=== PATIENT | female | born 1965 | race Caucasian/White ===

== ENCOUNTER 2017-02-06 22:45 | Emergency (ER) | payer BC ==
[~2017-02-06] VITALS: Ht 149.9 cm; Wt 62.7 kg
[~2017-02-06 22:45] MED LIST: DICY20TA35 PO; HYOS0.1255 PO; LORA-741 PO; QUET1TAB30 PO; TAPE50TA PO; VTMD PO; ZOLE5INJ IV; [UNRECOGNIZED DRUG - CODE] PO
[2017-02-06 22:46] VITALS: TEMP 36.7; Ht 149.9 cm; Wt 62.7 kg
[2017-02-06] MEDS ORDERED: FENTANYL CITRATE INJ 50 MCG/1 ML 2 ML VIAL IV STA (23:32)
[2017-02-06] MEDS ORDERED: ONDANSETRON INJ 2 MG/ML 2 ML VIAL IV STA (23:32)
[2017-02-06] MEDS ORDERED: HYDROmorphone INJ 0.5 MG/0.5 ML SYR IV STA (23:35)
[2017-02-07 00:02] VITALS: O2SAT 93
[2017-02-07 00:16] LABS: BASO % 0.2 %; BASO ABS # 0.02 K/uL (0-0.2); COMPLETE YES; HEMATOCRIT 40.6 % (37-47); IG% 0.3 %; LYMPH % 33.5 %; LYMPH ABS # 3.42 K/uL (1.2-3.4); MEAN CORPUSCULAR HEMOGLOBIN 27.5 pg (25-34); MEAN PLATELET VOLUME 8.9 fL (7.4-10.4); MONO % 6.9 %; NEUT % 58.1 %; PLATELET COUNT 308 K/uL (130-400); RED BLOOD COUNT 5.01 M/uL (4.2-5.4)
[2017-02-07 00:29] LABS: ALT/SGPT 29 U/L (12-78); BLOOD UREA NITROGEN 13 mg/dl (7-18); BUN/CREATININE RATIO 16.5 (10-20); CALCIUM 9.3 mg/dl (8.5-10.1); CARBON DIOXIDE 24 mmol/L (21-32); CHLORIDE 106 mmol/L (98-107); CREATININE 0.78 mg/dl (0.60-1.20); GLUCOSE 114 mg/dl (70-99); SODIUM 140 mmol/L (136-145)
[2017-02-07 00:34] LABS: ALKALINE PHOSPHATASE 106 U/L (45-117); AST/SGOT 15 U/L (15-37)
[2017-02-07] MEDS ORDERED: HYDROmorphone INJ 1 MG/ML SYR IV STA (00:58)
[2017-02-07] MEDS ORDERED: CEFTRIAXONE SOD INJ 1 GM ADDVIAL IV STA (02:05)
[2017-02-07] MEDS ORDERED: DOXY100C2 PO (02:08)
[2017-02-07] MEDS ORDERED: ALBUTEROL HFA 8 GM INHALER INH STA (02:08)
[2017-02-07] MEDS ORDERED: OXYCODONE IR HOME PACK PO ONE (02:15)
[2017-02-07] MEDS ORDERED: DOXYCYCLINE HYCLATE 100 MG CAP PO ONE (02:15)
[2017-02-07 02:21] VITALS: BP 112/76; PULSE 99; O2SAT 93
--- NOTE | 2017-02-07 04:34 | EMERGENCY ROOM VISIT NOTE ---
History First contact with patient: 23:19 Chief Complaint: RIB PAIN Stated Complaint: PAIN UNDER LF BREAST History of Present Illness The patient is a 51 year old female who presents to the Emergency Room with complaints of left-sided chest pain for the past week after twisting the wrong way who saw her family care doctor and had an x-ray was negative for fracture. Patient also has been coughing. She does smoke. Patient denies dyspnea, fever , chills, abdominal pain, numbness, tingling, nausea, vomiting, diarrhea, diaphoresis, headache, neck stiffness. She is tolerating by mouth fluids and food. She describes pain as aching, ranging in severity 6 out of 10 worse with movement and breathing and better with rest. Review of Systems See HPI for pertinent positives & negatives. A total of 10 systems reviewed and were otherwise negative. Past Medical/Surgical History Medical Problems: (1) Irritable bowel syndrome (2) Osteoporosis (3) Vitamin D insufficiency Family History Cancer Gallbladder disease Social History Smoking Status: Current Every Day Smoker Alcohol Use: none Drug Use: none Marital Status: Housing Status: lives with family Occupation Status: employed Current/Historical Medications Scheduled Dicyclomine Hcl (Bentyl), 20 MG PO QID PRN Doxycycline Hyclate (Vibramycin), 100 MG PO BID Ergocalciferol (Vitamin D), 50,000 UNITS PO WK Hyoscyamine Sulfate (Levsin), 0.125 MG PO QID PRN Lorazepam (Ativan), 0.5 MG PO BID Quetiapine Fumarate (Seroquel), 50 MG PO HS Tapentadol Hcl (Nucynta Er), 200 MG PO Q12 Tapentadol Hcl (Nucynta), 50-100 MG PO TID Zoledronic Acid (Reclast), 5 MG IV YEARLY Allergies Coded Allergies: Egg (Verified Allergy, Unknown, HIVES, FACIAL SWELLING, 02/06/17) Codeine (Verified Adverse Reaction, Unknown, ABDOMINAL PAIN-IBS, 02/06/17) Morphine (Verified Adverse Reaction, Unknown, ABDOMINAL PAIN-IBS, 02/06/17) Opioid Analgesics (Verified Adverse Reaction, Unknown, GI SYMPTOMS, ) Physical Exam Vital Signs Date Time Temp Pulse Resp B/P Pulse Ox O2 Delivery O2 Flow Rate FiO2 02/07/17 02:21 99 18 112/76 93 Room Air 02/07/17 01:12 97 18 123/73 92 Room Air 02/07/17 00:49 100 02/07/17 00:32 96 18 115/72 92 Room Air 02/07/17 00:12 93 18 124/75 93 Room Air 02/07/17 00:02 93 Room Air 02/06/17 23:45 93 Room Air 02/06/17 22:46 36.7 103 18 142/83 95 Room Air Pain Rating (0-10): 7.0 Physical Exam VITALS: Vitals are noted on the nurse's note and reviewed by myself. Vital signs stable. GENERAL: Pleasant female, in no acute distress, nondiaphoretic, well-developed well-nourished. SKIN: The skin was without rashes, erythema, edema, or bruising. There is no tenting of the skin. Capillary reflex less than 2 seconds. HEAD: Normocephalic atraumatic. EARS: External auditory canals clear, tympanic membranes pearly pham without erythema or effusion bilaterally. EYES: Pupils equal round and reactive to light and accommodation. Conjunctivae without injection, sclerae without icterus. Extraocular movements intact. NOSE: Patent, turbinates without inflammation or discharge. MOUTH: Mucous membranes moist. Pharynx without erythema or exudate. Uvula midline. Airway patent. Tongue does not deviate. NECK: Supple without nuchal rigidity. No lymphadenopathy. No thyromegaly. Cervical spine is nontender. No JVD. HEART: Regular rate and rhythm without murmurs gallops or rubs. Left-sided chest minimally tender to palpation LUNGS: Clear to auscultation bilaterally without wheezes, rales or rhonchi. No dullness to percussion. No retractions or accessory muscle use. ABDOMEN: Positive bowel sounds x 4. Normal tympanic percussion. Soft, nontender, without masses or organomegaly. Vazquez sign negative. No guarding or rebound tenderness. MUSCULOSKELETAL: No muscle atrophy, erythema, or edema noted. NEURO: Patient was alert and oriented to person place and time. Normal sensation to light and sharp touch. No focal neurological deficits. Medical Decision & Procedures Laboratory Results 02/07/17 00:01 Red Blood Count 5.01, Mean Corpuscular Volume 81.0, Mean Corpuscular Hemoglobin 27.5, Mean Corpuscular Hemoglobin Concent 34.0, Mean Platelet Volume 8.9, Neutrophils (%) (Auto) 58.1, Lymphocytes (%) (Auto) 33.5, Monocytes (%) (Auto) 6.9, Eosinophils (%) (Auto) 1.0, Basophils (%) (Auto) 0.2, Neutrophils # (Auto) 5.93, Lymphocytes # (Auto) 3.42, Monocytes # (Auto) 0.70, Eosinophils # (Auto) 0.10, Basophils # (Auto) 0.02 02/07/17 00:01 Test 02/07/17 00:01 02/07/17 02:28 White Blood Count 10.20 K/uL (4.8-10.8) Red Blood Count 5.01 M/uL (4.2-5.4) Hemoglobin 13.8 g/dL (12.0-16.0) Hematocrit 40.6 % (37-47) Mean Corpuscular Volume 81.0 fL (80-100) Mean Corpuscular Hemoglobin 27.5 pg (25-34) Mean Corpuscular Hemoglobin Concent 34.0 g/dl (32-36) Platelet Count 308 K/uL (130-400) Mean Platelet Volume 8.9 fL (7.4-10.4) Neutrophils (%) (Auto) 58.1 % Lymphocytes (%) (Auto) 33.5 % Monocytes (%) (Auto) 6.9 % Eosinophils (%) (Auto) 1.0 % Basophils (%) (Auto) 0.2 % Neutrophils # (Auto) 5.93 K/uL (1.4-6.5) Lymphocytes # (Auto) 3.42 K/uL (1.2-3.4) Monocytes # (Auto) 0.70 K/uL (0.11-0.59) Eosinophils # (Auto) 0.10 K/uL (0-0.5) Basophils # (Auto) 0.02 K/uL (0-0.2) RDW Standard Deviation 42.5 fL (36.4-46.3) RDW Coefficient of Variation 14.3 % (11.5-14.5) Immature Granulocyte % (Auto) 0.3 % Immature Granulocyte # (Auto) 0.03 K/uL (0.00-0.02) Anion Gap 10.0 mmol/L (3-11) Est Creatinine Clear Calc Drug Dose 67.2 ml/min Estimated GFR () 100.6 Estimated GFR (Non- 86.8 BUN/Creatinine Ratio 16.5 (10-20) Calcium Level 9.3 mg/dl (8.5-10.1) Total Bilirubin 0.2 mg/dl (0.2-1) Direct Bilirubin < 0.1 mg/dl (0-0.2) Aspartate Amino Transf (AST/SGOT) 15 U/L (15-37) Alanine Aminotransferase (ALT/SGPT) 29 U/L (12-78) Alkaline Phosphatase 106 U/L (45-117) Troponin I < 0.015 ng/ml (0-0.045) Total Protein 7.6 gm/dl (6.4-8.2) Albumin 3.7 gm/dl (3.4-5.0) Lipase 99 U/L (73-393) Bedside Troponin I 0.000 ng/ml (0-0.045) Medications Administered Medications (Trade) Dose Ordered Sig/Mariela Route Start Time Stop Time Status Last Admin Dose Admin Ondansetron HCl (Zofran Inj) 4 mg NOW STAT IV 02/06/17 23:32 02/06/17 23:34 DC 02/07/17 00:06 4 MG Hydromorphone HCl (Dilaudid Inj) 0.5 mg NOW STAT IV 02/06/17 23:35 02/06/17 23:37 DC 02/07/17 00:08 0.5 MG Hydromorphone HCl (Dilaudid Inj) 1 mg NOW STAT IV 02/07/17 00:58 02/07/17 00:59 DC 02/07/17 01:11 1 MG Ceftriaxone Sodium (Rocephin Inj) 1 gm NOW STAT IV 02/07/17 02:05 02/07/17 02:06 DC 02/07/17 02:16 1 GM Doxycycline Hyclate (Vibramycin Cap) 100 mg ONE ONCE PO 02/07/17 02:15 02/07/17 02:16 DC 02/07/17 02:15 100 MG Oxycodone HCl (Roxicodone Immediate Rel 5MG Home Pack) 1 homepack UD ONCE PO 02/07/17 02:15 02/07/17 02:16 DC 02/07/17 02:14 1 HOMEPACK Albuterol (Ventolin Hfa Inhaler) 2 puffs ONE STAT INH 02/07/17 02:08 02/07/17 02:09 DC 02/07/17 02:19 2 PUFFS ED Course Prior records/ancillary studies reviewed. Triage Nursing notes reviewed. Additional history obtained from family The patient's history was concerning for chest pain. Differential diagnosis: Etiologies such as cardiac ischemia, aortic dissection, pulmonary embolism, pneumonia, pneumothorax, musculoskeletal, infections, pericarditis, myocarditis , esophageal rupture, gastrointestinal, as well as others were entertained. Physical examination: As above. ER treatment provided: Dilaudid, Rocephin, doxycycline On reassessment the patient felt better. Diagnostic interpretation by me: The electrocardiogram was negative for pathologic change. No sinus, normal intervals, no acute ST-T wave changes. Impression normal sinus rhythm interpreted by myself The labs revealed no worrisome leukocytosis or electrolyte abnormality. Negative troponin Imaging studies: Chest x-ray concerning for possible bilateral pneumonia per my interpretation CT CHEST Without Contrast: Bibasilar, lingula, and right middle lobe patchy airspace disease/atelectasis, greater on the left. Small left pleural effusion. No evidence of acute fracture or pneumothorax. Mild height loss of T8 and T10 vertebral bodies at their inferior endplates, likely chronic. 5 mm nodule left upper lobe (image 117, series 4). Follow-up as per Fleischner Society recommendations. Post cholecystectomy. Mild atherosclerotic calcifications. Radiologist: Raphael Tanner MD Exam and history seem consistent with pneumonia. Patient was not hypoxic. She was afebrile. No leukocytosis. She is to not tachypneic. She is advised to take anti-medics as directed and to do incentive spirometry. She is advised follow-up family care in a few days or here in the ER sooner for chest pain, difficulty breathing, fevers, worsening signs or symptoms or as needed. She did not like criteria for admission for pneumonia. She was strongly encouraged to quit smoking and to follow-up for lung nodule seen on CT imaging. By the evaluation outlined above emergent etiologies such as cardiac ischemia, aortic dissection, pulmonary embolism, pneumothorax, infections, pericarditis , myocarditis, gastrointestinal, as well as others were deemed relatively unlikely. The pt informed about the findings as listed above. All questions were answered and pleased with the treatment. Return instructions were outlined and the patient was discharged in stable condition. Outpatient prescription management: Doxycycline Referral: The patient was referred back to primary care physician for follow-up in 2 to 3 days for a recheck of the current condition. Case reviewed with my attending Medical Decision As above Impression Primary Impression: Pneumonia Departure Information Dispostion Home / Self-Care Condition GOOD Prescriptions Doxycycline Hyclate (VIBRAMYCIN) 100 Mg Cap 100 MG PO BID for 7 Days, #14 CAP Prov: Sara Bhat .TAMRA 02/07/17 Forms WORK / SCHOOL INSTRUCTIONS, HOME CARE DOCUMENTATION FORM, IMPORTANT VISIT INFORMATION Patient Instructions Pneumonia, My [facility], ED Nodule Solitary Pulmonary Additional Instructions DO NOT drive, drink alcohol, operate machinery, or perform dangerous activities today. You were given medications in the ER that can affect your ability to safely function or operate a vehicle. Oxycodone (OxyIR) 5mg: Take 1-2 pills every four hours for breakthrough pain. Avoid alcohol, operating machinery or dangerous equipment, working on ladders or roofs, DRIVING, or situations where being under the influence may be dangerous. It is recommended to use an iwky-eyn-hlvjuia stool softener such as Colace, 100mg twice daily while taking this medication to avoid constipation. Doxycycline 100mg: Take one pill twice daily for seven days for your infection. Take with food, but avoid dairy. Avoid prolonged sun exposure since this medication makes you temporarily more susceptible to sunburns. All antibiotics can cause diarrhea. If this occurs and you feel worse or it does not resolve in 1-2 days follow up with your doctor or return to the Emergency Department as this could be signs of serious underlying problems. Any medication can cause an allergic reaction, stop the pills immediately and return to the ER for rash, hives, breathing difficulties, or swelling. Albuterol Inhaler: Take 2 puffs four times daily for seven days, then as needed. Acetaminophen(Tylenol) may be used for fever or pain. Use 1000mg every six hours as needed. Avoid using more than 3000mg in a 24 hour period. AND/OR Ibuprofen(Motrin, Advil) may be used for fever or pain. Use 600mg every six hours as needed. Take with food. Avoid using more than 2400mg in a 24 hour period. Do not use 2400mg per day for more than three consecutive days without physician direction. Prolonged inappropriate use can lead to stomach upset or ulcers. Incentive spirometry 10 times an hour for the next 2 weeks while you're awake. Controlling your fever with Tylenol and Ibuprofen as above will make you feel better. Rest and drink plenty of fluids. Avoid strenuous activity until your symptoms resolve and your breathing returns to normal. Continue current medications. Return to the ER for chest pain, difficulty breathing, persistent fevers, vomiting, worsening of your condition, or as needed. Follow-up with family care in 2-3 days and for further workup for lung nodule seen on CT imaging. I strongly recommend that you quit smoking. Problem Qualifiers Primary Impression: Pneumonia Pneumonia type: due to unspecified organism Laterality: bilateral Lung location: unspecified part of lung Qualified Codes: J18.9 - Pneumonia, unspecified organism
--- NOTE | 2017-02-07 06:12 | DIAGNOSTIC IMAGING REPORT ---
CHEST ONE VIEW PORTABLE CLINICAL HISTORY: CHEST PAIN dyspnea COMPARISON STUDY: 05/28/2016 FINDINGS: Small bibasilar parenchymal infiltrates. Mid and upper lungs are considered clear. Diaphragms smooth. IMPRESSION: Small bibasilar parenchymal infiltrates Electronically signed by: Jesus Watkins M.D. 02/07/2017 6:10 AM Dictated Date/Time: 02/07/2017 6:10 AM
--- NOTE | 2017-02-07 06:19 | DIAGNOSTIC IMAGING REPORT ---
CHEST CT WITHOUT CONTRAST CT DOSE: 250.42 mGy.cm HISTORY: Trauma left sided cp, ? Fx TECHNIQUE: Multiaxial CT images of the chest were performed without contrast. COMPARISON: None. FINDINGS: Bilateral basilar parenchymal infiltrates. No true consolidative change. Trace left pleural effusion. Upper lungs are grossly clear. No evidence pneumothorax. 5 mm nodular density left upper lobe transaxial image 24. No acute bony abnormality. IMPRESSION: Bibasilar parenchymal infiltrates. No evidence pneumothorax. 5 mm nodular density left upper lobe. Please refer to below summary of Fleischner criteria recommendations for follow-up of incidental CT nodules (Jesus Iraheta, Guidelines for management of small pulmonary nodules detected on CT scans: A statement from the Fleischner Society, Radiology 237: [phone].) Low Risk Patient: Minimal or no smoking or other known risk factors for malignancy <=4 mm: No follow-up needed. >4-6 mm: Initial follow-up CT at 12 months; if unchanged, no further follow-up. >6-8 mm: Initial follow-up CT at 6-12 months then at 18-24 months if no change. >8 mm: Follow-up CT at \R\3, 9, 24 months, or PET and/or biopsy. High Risk Patient: History of smoking or other known risk factors <=4 mm: Follow-up at 12 months; if unchanged, no further follow-up. >4-6 mm: Initial follow-up CT at 6-12 months then at 18-24 months if no change. >6-8 mm: Initial follow-up CT at 3-6 months then at 9-12 and 24 months if no change. >8 mm: Same as low risk patient. Note: Nodule size measured as average of length and width. Ground glass or partly solid nodules may require longer follow-up to exclude indolent adenocarcinoma. Electronically signed by: Jesus Watkins M.D. 02/07/2017 6:18 AM Dictated Date/Time: 02/07/2017 6:17 AM
== END 2017-02-07 03:08 | disposition home or self-care (01) ==
LOC: C.EDB 22:46 → C.EDC 02-07 03:08
DX: J18.9 Pneumonia, unspecified organism (principal); R91.1 Solitary pulmonary nodule; F17.200 Nicotine dependence, unspecified, uncomplicated; K58.9 Irritable bowel syndrome, unspecified; M81.0 Age-related osteoporosis without current pathological fracture; E55.9 Vitamin D deficiency, unspecified

== ENCOUNTER 2023-07-28 03:43 | Inpatient (IN) ==
[2023-07-28] MEDS ORDERED: ASPIRIN CHEW 324 MG ONE (03:51)
[2023-07-28] MEDS ORDERED: ONDANSETRON INJ 2 MG/ML 2 ML VIAL IV STA ×2 (03:55→04:00)
[2023-07-28] MEDS ORDERED: NITROGLYCERIN 2% OINTMENT 30GM TUBE EXT STA (03:55)
[2023-07-28] MEDS ORDERED: NITROGLYCERIN SL 0.4 MG/TAB TAB ONE (03:58)
[2023-07-28] MEDS ORDERED: fentaNYL citrate PF 100 MCG/2 ML VIAL IV STA (04:00)
[2023-07-28 04:21] LABS: iSTAT Creatinine 0.8 mg/dl (0.6-1.3); iSTAT Ionized Calcium 1.16 mmol/l (1.12-1.32); iSTAT Potassium 3.7 mmol/L (3.3-5.0)
[2023-07-28] MEDS ORDERED: IOVERSOL 350 MG 125mL Prefilled Syringe IV ONE (04:27)
[2023-07-28 04:47] LABS: Basophils # (auto) 0.04 K/uL (0.00-0.20); Basophils % (auto) 0.4 %; Eosinophils # (auto) 0.16 K/uL (0.00-0.50); Eosinophils % (auto) 1.5 %; Hematocrit (blood only) 42.5 % (37.0-47.0); Hemoglobin 14.5 g/dl (12.0-16.0); Immature Granulocytes # (auto) 0.04 K/uL (0.01-0.20); Immature Granulocytes % (auto) 0.4 %; Lymphocytes % (auto) 45.5 %; Mean Corpuscular Hemoglobin 28.5 pg (25.0-34.0); Mean Corpuscular Hgb Conc 34.1 g/dL (32.0-36.0); Mean Corpuscular Volume 83.7 fL (80.0-100.0); Mean Platelet Volume 9.9 fL (9.4-12.4); Monocytes # (auto) 0.61 K/uL (0.11-0.59); Monocytes % (auto) 5.7 %; Neutrophils # (auto) 5.02 K/uL (1.40-6.50); Neutrophils % (auto) 46.5 %; Platelet Count 314 K/uL (130-400); RDW Coefficient of Variation 15.7 % (11.5-14.5); Red Blood Count 5.08 M/uL (4.20-5.40); White Blood Count 10.77 K/ul (4.8-10.8)
[2023-07-28 05:00] LABS: Albumin Globulin Ratio 1.4 (0.9-2); Albumin Level 4.1 gm/dl (3.4-5.0); Bilirubin,Total 0.3 mg/dl (0.2-1.0); Calcium 9.3 mg/dl (8.6-10.3); Creatinine Clr Calc Pharmacy 67.5 ml/min; Est GFR (African American) 88.2 ml/min; Est GFR (Non-African American) 76.1 ml/min; Globulin 2.9 gm/dl (2.5-4.0); Potassium 3.8 mmol/L (3.5-5.1)
[2023-07-28 05:07] LABS: Troponin I High Sensitivity 14.2 pg/ml (0-14)
[2023-07-28 05:08] LABS: Partial Thromboplastin Ratio 0.9; Partial Thromboplastin Time 24.1 Seconds (21.0-31.0); Prothrombin Time 10.5 Seconds (9.0-12.0)
[2023-07-28] MEDS ORDERED: niCARdipine HCL INJ 2.5 MG/ML 10 ML AMP ONE (05:36)
[2023-07-28] MEDS ORDERED: MIDAZOLAM HCL 1 MG/ML 2ML VIAL ONE (05:36)
[2023-07-28] MEDS ORDERED: HEPARIN (PORCINE) 1000 UNIT/ML 10 ML (CATH LAB USE ONLY) ONE (05:36)
[2023-07-28] MEDS ORDERED: fentaNYL citrate PF 100 MCG/2 ML VIAL ONE (05:36)
[2023-07-28] MEDS ORDERED: NITROGLYCERIN/D5W 100MCG/ML 20ML SYR ONE (05:38)
--- NOTE | 2023-07-28 05:47 | CT Scan Report ---
Exam(s): CTA CHEST W/WO Contrast IV Amt: 118 ml opti 350 EXAM: CT Angiography Chest Without and With Intravenous Contrast CLINICAL HISTORY: Reason for exam: chest abd pain, collapse, 3rd degree HB. TECHNIQUE: Axial computed tomographic angiography images of the chest without and with intravenous contrast. CTDI is 22.86 mGy and DLP is 681.06 mGy-cm. Automated exposure control was utilized for the study. A dose lowering technique was utilized adhering to the principles of ALARA. MIP reconstructed images were created and reviewed. CONTRAST: Patient received 118 ml opti 350 of IV contrast COMPARISON: No relevant prior studies available. FINDINGS: Pulmonary arteries: Unremarkable. No acute pulmonary embolism. Aorta: No acute findings. No thoracic aortic aneurysm. Lungs: Patchy multifocal groundglass and consolidative densities are seen scattered in the lungs, more so involving the lower lobes. 7.9 mm nodule seen in the lingula on image 24, series 2. Pleural space: Unremarkable. No significant effusion. No pneumothorax. Heart: There is mild left ventriculomegaly. No significant pericardial effusion. No evidence of RV dysfunction. Bones/joints: No acute fracture. No dislocation. Soft tissues: Unremarkable. Lymph nodes: Unremarkable. No enlarged lymph nodes. Gallbladder and bile ducts: Cholecystectomy. Adrenals: Nodularity seen in the left adrenal gland, measuring up to 2. 1 cm in diameter. IMPRESSION: 1. Bilateral multifocal groundglass and consolidative densities are suggestive of pneumonia 2. Left adrenal nodularity Electronically signed by: Geoff George MD 07/28/23 05:46 AM
[2023-07-28 06:16] LABS: Influenza A virus by PCR Negative (Neg); Influenza B virus by PCR Negative (Neg); RSV by PCR Negative (Neg); SARS CoV2 RNA(COVID-19) Ceph NEGATIVE (Negative)
[2023-07-28] MEDS ORDERED: SODIUM CHLORIDE 0.9% 1,000 ML IV SCH (06:30)
--- NOTE | 2023-07-28 06:38 | Pre Anesthesia Assessment ---
Date of Service July 28, 2023 Pre Sedation Assessment Vital Signs Pulse Resp BP Pulse Ox O2 Del Method O2 Flow Rate 07/28/23 05:35 103 H 26 H 95 07/28/23 05:35 153/85 H 07/28/23 05:30 29 H 100 07/28/23 05:30 139/92 07/28/23 05:25 102 H 42 H 07/28/23 05:25 139/95 07/28/23 05:20 150/97 H 07/28/23 05:20 94 H 25 H 100 07/28/23 05:15 98 H 27 H 100 07/28/23 05:15 149/88 H 07/28/23 05:10 95 H 31 H 98 07/28/23 05:10 128/93 07/28/23 05:05 95 H 43 H 100 07/28/23 05:05 140/89 07/28/23 05:01 88 34 H 100 07/28/23 05:01 149/69 H 07/28/23 05:00 71 21 07/28/23 04:55 138/67 07/28/23 04:55 57 L 26 H 99 07/28/23 04:50 52 L 29 H 07/28/23 04:50 130/70 07/28/23 04:45 52 L 21 97 07/28/23 04:45 135/68 07/28/23 04:40 73 28 H 97 07/28/23 04:40 121/61 07/28/23 05:52 96 H 20 153/85 H 100 Non-rebreather 10 07/28/23 05:18 97 H 07/28/23 04:28 44 L 07/28/23 04:35 50 L 22 111/63 96 07/28/23 04:28 49 L 19 118/61 94 07/28/23 04:24 79 20 91/49 L 94 07/28/23 04:22 36 L 19 92 07/28/23 04:34 Non-rebreather 15 07/28/23 04:01 72 28 H 146/92 H 100 Non-rebreather 15 Cardiovascular RRR, no murmur, no edema Respiratory normal respiratory effort, lungs clear to auscultation Pre-Sedation Airway Assessment Smoking Status: Current every day smoker Mallampati 3 ASA 4 Notes The planned sedation has been discussed with the patient. Informed Consent was obtained. I have identified the patient, determined the appropriateness of sedation and have assessed the patient immediately prior to the procedure. All medicine(s) and interventions are by my order.
[2023-07-28] MEDS ORDERED: OPTIRAY 320 100ml IV ONE (06:39)
--- NOTE | 2023-07-28 06:40 | Post Anesthesia Assessment ---
Date of Service July 28, 2023 Post Sedation Assessment Vital Signs Pulse Resp BP Pulse Ox O2 Del Method O2 Flow Rate 07/28/23 05:35 103 H 26 H 95 07/28/23 05:35 153/85 H 07/28/23 05:30 29 H 100 07/28/23 05:30 139/92 07/28/23 05:25 102 H 42 H 07/28/23 05:25 139/95 07/28/23 05:20 150/97 H 07/28/23 05:20 94 H 25 H 100 07/28/23 05:15 98 H 27 H 100 07/28/23 05:15 149/88 H 07/28/23 05:10 95 H 31 H 98 07/28/23 05:10 128/93 07/28/23 05:05 95 H 43 H 100 07/28/23 05:05 140/89 07/28/23 05:01 88 34 H 100 07/28/23 05:01 149/69 H 07/28/23 05:00 71 21 07/28/23 04:55 138/67 07/28/23 04:55 57 L 26 H 99 07/28/23 04:50 52 L 29 H 07/28/23 04:50 130/70 07/28/23 04:45 52 L 21 97 07/28/23 04:45 135/68 07/28/23 04:40 73 28 H 97 07/28/23 04:40 121/61 07/28/23 05:52 96 H 20 153/85 H 100 Non-rebreather 10 07/28/23 05:18 97 H 07/28/23 04:28 44 L 07/28/23 04:35 50 L 22 111/63 96 07/28/23 04:28 49 L 19 118/61 94 07/28/23 04:24 79 20 91/49 L 94 07/28/23 04:22 36 L 19 92 07/28/23 04:34 Non-rebreather 15 07/28/23 04:01 72 28 H 146/92 H 100 Non-rebreather 15 Recovery Score Activity: Moves 4 extremities Respiration: Deep Breath/Cough Circulation: +/-20% PreAnes Value Consciousness: Fully Awake Oxygen Saturation: > 92% On Room Air Discharge Sedation Level of Care: Fast Track Phase II Post Sedation Plan On clinical assessment, the patient appears to have tolerated the sedation without complications. Patient is recovering as anticipated. Patient will continue to be monitored by nursing and may be discharged when sedation discharge criteria are met per below protocol. Upon Completions of procedure up to 15 minutes continue every 5 minute vital signs and the P.A.R. score; then discharge to a Phase I or Fast Track to Phase II per the following guidelines: * Discharge Patient to appropriate Phase II area if PAR is 8 or greater or return to pre- procedure baseline. The post - procedure orders will be as directed. * If PAR score is less than 8 or not return to pre-procedure baseline then patient will follow Phase I monitoring till PAR is reached for Phase II. The Phase I may be done in procedure room or may call to secure a Phase I area. * If naloxone or flumazenil are used for reversal, hold in Phase I for continued monitoring from when last reversal dose was given for a minimum of 60 minutes or longer pending the nurse and/or physician discretion of patient condition before discharge to Phase II. Please call the Sedation Physician to re-evaluate and complete post-note for discharge to Phase II area. Do NOT discharge from procedure sedation or Phase 1 until post- sedation evaluation note is complete by procedure /sedation MD Sedation Discharge Instructions to be given to the patient at discharge to home. [facility] Procedure Codes (Charges) Indication for Procedure Indication for procedure: ST elevation SD Sedation/Anesthesia Procedure 1: Sedation/Anesthesia: 54601 Mod Sedation by the same physician;Init15 Min Child Age 5 & Up (Start time 0554) Total Sedation Time (minutes): 25 Procedure 2: Sedation/Anesthesia: 15932 Mod Sedation by the same physician; Ea [id number] Minutes (End time 0619) Total Sedation Time (minutes): 25
--- NOTE | 2023-07-28 06:52 | Cardiac Catheterization ---
ACC Data: Preventive Medicine Officer Cardiac Status Clinical evaluation leading to the procedure CAD Presenation: STEMI Anginal Classification: CCS IV Heart Failure: No Cardiogenic Shock within 24 Hours: No Cardiac Arrest within 24 Hours: No Imaging Studies Past 6 Months: No Stress Studies Past 6 Months: No STEMI OR Non-STEMI Symptom Onset Date: 07/28/23 Symptom Onset Time: 03:00 Thrombolytics: No Coronary Anatomy Dominant: Right Left Main (% Stenosis): Normal LAD (% Stenosis): Proximal (Mild disease) D1 (% Stenosis): Normal D2 (% Stenosis): Normal Circumflex (% Stenosis): Normal OM1 (% Stenosis): Proximal (99%) OM2 (% Stenosis): Normal L PL1 (% Stenosis): Normal RCA (% Stenosis): Proximal (100%, acute) R PDA (% Stenosis): Normal R PL1 (% Stenosis): Normal Diagnostic Physicians Name: Seth Latham MD, PhD Closure Device Percutaneous Entry Location: Femoral Closure Device: Angio-Seal Recommendations: Medical Therapy and/or Counseling and PCI without planned CABG PCI Indication: PCI for STEMI - Unstable First Noted: First EKG Reason For Delay in PCI:: Complete heart block, (Sent for aortic dissection pro tocol) Lesion Segment Name: Proximal RCA Culprit Artery: Yes Stenosis Prior to Rx (%): 100% Chronic Total Occlusion: No Pre-Procedure ISAEL Flow: 0 Previously Treated Lesion: No Lesion Complexity: Non-High/Non-C Lesion Length (mm): 18 Thrombus Present: Yes Bifurcation Lesion: No Guidewire Across Lesion: Yes Cardiac Cath Procedure Full Procedure Date July 28, 2023 Pre-Procedure Diagnosis Pre-Procedure Diagnosis: STEMI AUC Score AUC Score: 09 Post-Procedure Diagnosis Post-Procedure Diagnosis: Severe CAD Procedure(s) Performed Procedure(s) Performed: Coronary Angiography, Drug Eluting Stent and Ultrasound Guided Vascular Access Deputy Director Seth Latham MD, PhD Estimated Blood Loss Estimated Blood Loss: 5 Medication(s) Medication(s): Fentanyl, Heparin, Lidocaine 1%, Nicardipine, Nitroglycerin and Versed Summary of Findings Brief description: Patient was brought to the cardiac catheterization suite where she was shaved and prepped in a sterile fashion. Sedated using IV Versed and fentanyl. Soft tissues of the right groin were anesthetized using 10 mL of 1% Xylocaine. Using the ultrasound for guidance, the right femoral artery was accessed and a 6 [place] femoral artery sheath was placed. All catheters were advanced and exchanged over a 0.035 J-tip wire. Right coronary angiography was performed in orthogonal views with a 6 [place] JR4 guide catheter. We proceeded immediately to PCI. Patient was provided 7000 units of IV heparin. A BMW reversal guidewire was advanced through the guide catheter and positioned distally in the RCA. The lesion was predilated using a 2.0 x 12 mm mini trek balloon at 8 jeffrey. PCI with a 2.25 x 22 mm [place] drug-eluting stent deployed at 14 atmospheres. Postdilatation of the mid and proximal portion of the stent with a 2.25 x 12 NC trek balloon at 18 jeffrey and 20 jeffrey respectively. Noncompliant balloon removed. Guidewire removed. Final angiographic evaluation performed in orthogonal views. The guide catheter was then removed. We completed diagnostic coronary angiography using a 5 [place] JL 3.5 diagnostic catheter. Coronary angiography performed in orthogonal views. Catheter was then removed. Femoral artery angiography was performed to evaluate for closure. The femoral artery sheath was exchanged for a 6 [place] Angio-Seal closure device. This was deployed in the recommended fashion. We obtained immediate hemostasis. Patient was returned to the recovery area. This ended the case. Coronary angiography findings: YFO-[id number]-hchlakn vessel bifurcating into LAD and circumflex. No disease. LAD-large caliber and transapical. Proximal mild disease. Gives a medium caliber first diagonal which has no disease. The mid segment has no disease and gives a second diagonal. Distally there is no angiographically evident disease. QAs-kbtsw-hjbtbuz and nondominant. Proximal segment in the AV groove has mild luminal irregularities. Vessel gives a small caliber OM1 which appears 99% occluded. The mid AV groove circumflex has no significant disease and then provides a large caliber OM 2. This vessel has mild luminal irregularities. Distally the AV groove vessel then becomes a large caliber branching posterior lateral which has no more than mild luminal irregularities. RCA-medium caliber and dominant. Proximally 100% occluded which appears acute. ISAEL 0 flow PCI of RCA- 0% residual stenosis post PCI No evidence of dissection or perforation post PCI ISAEL-3 flow post PCI Excellent myocardial blush downstream post PCI. The PDA and branching posterolaterals are both visualized. Summary: 1. Acute inferior ST elevation OK secondary to proximal RCA occlusion. 2. Successful PCI to the RCA with implantation of a drug-eluting stent 3. No significant coronary disease elsewhere 4. Dual antiplatelet therapy with aspirin 81 mg daily and Brilinta 90 mg p.o. twice daily 5. Guideline directed medical therapy for secondary prevention of coronary disease to include; high intensity statin therapy, beta-rose, plus or minus TAMI inhibitor/ARB. 6. Dr. Oliver from [facility] cardiology will be taking over the patient's care as she is a [facility] patient. Patient is admitted to the [facility] hospitalist service. Hemodynamics Rest Ao:: 164/71 mmHg Final Ao: 83/54 mmHg LV: Not performed Recommendations Recommendations: Medical Therapy and/or Counseling and PCI without planned CABG Radiation Exposure (mGy) 792 mGy, fluoroscopy time 5.1 minutes Contrast (mls) 90 Anesthesia 1 mg IV Versed, 50 mcg IV fentanyl. Start time 0554, end time 0619 Procedural Complication(s) None Disposition ICU I attest to the content of the Intraoperative Record and any orders documented therein. Any exceptions are noted below. [id number] Card Cath Procedure Codes Cardiac Catheterization Procedure 1: Cardiovascular Cath Procedures: 51519 Coronaries Therapeutic Services & Ancillary Procedure 1: Cardiovascular Tx and Anc Procedures: 99090 Ultrasonic Guidance Vascular Access Moderate Sedation Procedure 1: Sedation/Anesthesia: 43392 Mod Sedation by the same physician;Init15 Min Child Age 5 & Up (Initial 15-minute, start time 0554) Procedure 2: Sedation/Anesthesia: 29672 Mod Sedation by the same physician; Ea [id number] Minutes (Additional 10-minute, end time 0619) Stenting Procedure 1: Cardiovascular Stent Procedures: 90957 Perc transluminal revascularization of acute sub/total occl, aMI (RCA) PG Care Time/CCT Total # of Minutes Spent Total Time Spent with Patient: Total time spent is greater than 50% in coordination of care (as documented) at patient's floor/unit and/or counseling patient:
[2023-07-28] MEDS ORDERED: TICAGRELOR 90 MG TAB ONE (06:55)
--- NOTE | 2023-07-28 07:04 | XRay Report ---
XR chest 1V portable HISTORY: 57 years-old Female Chest pain, nonspecific COMPARISON: CTA chest of same day TECHNIQUE: AP view of the chest FINDINGS: Cardiac silhouette is enlarged. Atherosclerosis of the aorta. No pneumothorax or pleural effusion. Mi xed interstitial and alveolar opacities are most pronounced in the lower lung zones. Bones appear raoul ssly intact. IMPRESSION: Cardiomegaly with lower lung zone predominant mixed interstitial and alveolar opacities s uspicious for a nonspecific pneumonitis. ACT 112: Negative or not required by law. The above report was generated using voice recognition software. It may contain grammatical, syntax o r spelling errors. Electronically signed by: Jose Stahl M.D. 07/28/2023 7:03 AM
--- NOTE | 2023-07-28 07:11 | CT Scan Report ---
CT abdomen pelvis wo/w con CT DOSE: 2415.85 mGy.cm CLINICAL HISTORY: acute abdominal pain post cardiac cath TECHNIQUE: Multiaxial CT images of the abdomen and pelvis were performed both before and after the in travenous administration of 94 cc of Optiray 320. Sagittal and coronal reformations were performed at the workstation by the radiologist. A dose lowering technique was utilized adhering to the principl es of SONAL. COMPARISON STUDY: Abdomen and pelvis CT 06/15/2018. Chest CTA 07/28/2023. FINDINGS: Patchy and linear bilateral lower lobe densities are better appreciated on the same day cj st CT. This may represent atelectasis or pneumonia. No pneumoperitoneum. No pneumatosis. L2 vertebrop lasty is noted. Old mild superior endplate compression deformities at L4 and L5. Old mild inferior en dplate compression deformities at T8 and T10. Residual contrast within the urinary system from the re cent cardiac catheterization. Noncontrast imaging through the abdominal aorta demonstrates moderate c alcified plaque. No evidence for an intramural hematoma. The abdominal aorta is normal in course and caliber. The iliac and femoral vessels are also normal in course and caliber with no evidence for dis section, stenosis, or occlusion. No retroperitoneal hematoma. Trace hemorrhage anterior to the common femoral vessels best seen on image 297. No active arterial extravasation identified to suggest a pse udoaneurysm. This is consistent with the access point for the cardiac catheterization. There is an ov erlying pressure dressing identified. Cholecystectomy. The main portal vein is patent. The liver, spl een, and pancreas are unremarkable. Subcentimeter hypodense lesions within the left kidney are techni tiffanie too small to characterize but favor cysts. The right kidney enhances normally. No hydronephrosi s. Bilateral low-density adrenal gland nodules remain stable. These favor benign adenomas. No retrope ritoneal or pelvic lymphadenopathy. No pelvic free fluid. No bowel wall thickening or obstruction. Th e uterus and bilateral adnexa are unremarkable. No bowel wall thickening or obstruction. IMPRESSION: 1. Trace hemorrhage anterior to the common femoral vessels consistent with expected postcatheterizati on changes. No active arterial extravasation or pseudoaneurysm identified. No retroperitoneal hematom a. 2. No bowel wall thickening or obstruction. 3. Normal caliber abdominal aorta. No evidence for a dissection. 4. Patchy and linear bibasilar densities. This may represent atelectasis or a pneumonitis. 5. Stable low-density bilateral adrenal gland nodules. These favor benign adenomas. 6. Additional findings as described above. ACT 112: Negative or not required by law. Electronically signed by: Stephan Callejas M.D. 07/28/2023 7:10 AM
--- NOTE | 2023-07-28 07:13 | Emergency Department Note ---
Impression & Plan Acute ME, inferior wall, Mobitz type 1 second degree AV block ED Provider Note CHIEF COMPLAINT: Chest pain, syncopal event HISTORY OF PRESENT ILLNESS: This 57-year-old female patient with past medical history of osteoporosis, lumbar compression fracture, irritable bowel syndrome, tobacco smoking presents to the emergency department with complaints of chest and abdominal pain after a syncopal event. The patient apparently called her earlier this evening and stated she was not feeling well. He was in the basement and came upstairs with her. The patient then clutched her chest and stated she felt as though she was having a heart attack. Shortly thereafter she had a syncopal event. She states she woke up with the ambulance crew there. She complains of pain that does radiate to her back and arms. Patient has been taking her medications religiously. states she is trying to cut back on smoking. REVIEW OF SYSTEMS: A review of systems was performed with positives and pertinent negatives listed in the history of present illness. 10 systems were reviewed and are otherwise negative. ALLERGIES: see below MEDICATIONS: see below PMH: see below SOCIAL HISTORY: see below DDx: Acute coronary syndrome, aortic dissection, PE, pancreatitis, hiatal hernia, among others. PHYSICAL EXAM: Vital signs reviewed. General: Well-appearing 57-year-old female, in no significant distress. HEENT: No scleral icterus, PERRLA, neck supple. Atraumatic. Cardiovascular: Bradycardic but regular, no extra sounds Pulmonary: Clear to auscultation bilaterally, normal work of breathing. On supplemental oxygen Abdomen: Soft, nontender, nondistended, positive bowel sounds. Musculoskeletal: Atraumatic, no peripheral edema. Neurologic: Patient awake somnolent but arousable. Answers simple questions. Speech is clear. Skin: Warm, dry, no rash EMERGENCY DEPARTMENT COURSE/MDM: Patient was evaluated and appeared to be in some discomfort. 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 IV access was obtained and laboratory work was drawn. The patient was placed on the purchase analyst. She was given supplemental nasal cannula oxygen. Due to the patient's recent travel history and new AV block on EKG, CT imaging of the chest was performed and reveals no evidence of acute dissection or PE. EKG was concerning for possible ischemia however elevation was only noted in 1-lead initially. I did initially page cardiology due to the AV block, Dr. Oliver responded quickly however patient's third EKG is more convincing for ST elevation and then heart alert had just been called. Patient's initial troponin is noted to be within normal limits. She was taken to the catheterization lab for further management by Dr. Latham. Patient's was made aware of the findings and plan and agreed. MONITORING: An order for cardiac monitoring was placed and the patient is noted to be in a sinus rhythm first-degree AV block 79 beats per minute. RADIOLOGY: Chest x-ray to my interpretation reveals patchy focal opacities concerning for pneumonia versus failure. Otherwise defer to radiology's read below. Chest CT dissection protocol to my interpretation reveals no evidence of central PE or aortic dissection. EKG: To my interpretation reveals sinus rhythm with with first-degree AV block at [address] elevation in 1-lead inferiorly. QTc of 447. EKG #2 to my interpretation reveals a 2:1 AV block bradycardia at 47 bpm, minimal ST elevation in 1-lead inferiorly with T wave inversions anteriorly. EKG #3 to my interpretation reveals a sinus rhythm with first-degree AV block at 93 bpm. PVC noted. QTc is 457 ST elevation in the inferior lead with reciprocal changes anteriorly. ST elevation ME DISPOSITION: Admission I have personally spent greater than 60 minutes of critical care time in the direct management of this patient. This includes bedside care, interpretation of diagnostic studies, and testing, discussion with consultants, patient, and family members, and other required patient management activities. This 60 minutes is in excess of all separately billable procedures. 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 Service Specialist Required: No Beliefs That Will Affect Care: None Current Living Situation: Spouse Feels Safe at Home: Yes Assistive Devices: None Allergies Allergies Allergy/AdvReac Type Severity Reaction Status Date / Time egg Allergy Unknown HIVES, Verified 09/05/20 10:21 FACIAL SWELLING codeine AdvReac Unknown ABDOMINAL Verified 09/05/20 10:21 PAIN-IBS morphine AdvReac Unknown ABDOMINAL Verified 09/05/20 10:21 PAIN-IBS Opioids - Morphine Analogues AdvReac Unknown Nausea Verified 07/28/23 06:39 Home Meds Home Medications Medication Instructions Recorded Confirmed dicyclomine 20 mg tablet 20 mg PO QID PRN IBS 10/03/18 07/28/23 hyoscyamine sulfate 0.125 mg 0.125 mg sublingual QID PRN 10/03/18 07/28/23 sublingual tablet Abdominal Pain lorazepam 0.5 mg tablet 0.5 mg PO TID anxiety 09/05/20 07/28/23 suvorexant 20 mg tablet (Belsomra) 20 mg PO HS PRN Sleep 09/05/20 07/28/23 buspirone 15 mg tablet 22.5 mg PO QID 07/28/23 07/28/23 cholecalciferol (vitamin D3) 1,250 50,000 unit PO FR@0900 07/28/23 07/28/23 mcg (50,000 unit) capsule denosumab 60 mg/mL subcutaneous See Rx Instructions .Route .COMPLEX 07/28/23 07/28/23 syringe (Prolia) glipizide 5 mg tablet, extended 5 mg PO DAILY 07/28/23 07/28/23 release 24 hr omeprazole 40 mg capsule,delayed 40 mg PO DAILY 07/28/23 07/28/23 release progesterone micronized 200 mg 400 mg PO HS 07/28/23 07/28/23 capsule thyroid (pork) 60 mg tablet 60 mg PO DAILY 07/28/23 07/28/23 ([place] Thyroid) linaclotide 290 mcg capsule 290 mcg PO DAILY 07/29/23 07/29/23 (Linzess) quetiapine 300 mg tablet 300 mg PO HS 07/30/23 07/30/23 Results & Data (ED) Vital Signs Vital Signs - 24 hr 07/28/23 04:01 07/28/23 04:34 07/28/23 04:22 Pulse Rate 72 36 L Pulse Rate from SpO2 Sensor Respiratory Rate 28 H 19 Blood Pressure 146/92 H Blood Pressure Mean 110 Pulse Oximetry 100 92 Oxygen Delivery Method Non-rebreather Non-rebreather Oxygen Flow Rate 15 15 Sepsis Recent Fever Within 48 Hours No Sepsis New/Unexplained Change in Mental Status No Sepsis Action Taken by Nursing No Action Required Pulse Oximetry Post Tiitration 96 07/28/23 04:24 07/28/23 04:28 07/28/23 04:35 Pulse Rate 79 49 L 50 L Pulse Rate from SpO2 Sensor Respiratory Rate 20 19 22 Blood Pressure 91/49 L 118/61 111/63 Blood Pressure Mean 63 80 79 Pulse Oximetry 94 94 96 Oxygen Delivery Method Oxygen Flow Rate Sepsis Recent Fever Within 48 Hours Sepsis New/Unexplained Change in Mental Status Sepsis Action Taken by Nursing Pulse Oximetry Post Tiitration 07/28/23 04:28 07/28/23 05:18 07/28/23 05:52 Pulse Rate 44 L 97 H 96 H Pulse Rate from SpO2 Sensor Respiratory Rate 20 Blood Pressure 153/85 H Blood Pressure Mean Pulse Oximetry 100 Oxygen Delivery Method Non-rebreather Oxygen Flow Rate 10 Sepsis Recent Fever Within 48 Hours Sepsis New/Unexplained Change in Mental Status Sepsis Action Taken by Nursing Pulse Oximetry Post Tiitration 07/28/23 04:40 07/28/23 04:40 07/28/23 04:45 Pulse Rate 73 Pulse Rate from SpO2 Sensor 52 L Respiratory Rate 28 H Blood Pressure 121/61 135/68 Blood Pressure Mean 81 90 Pulse Oximetry 97 Oxygen Delivery Method Oxygen Flow Rate Sepsis Recent Fever Within 48 Hours Sepsis New/Unexplained Change in Mental Status Sepsis Action Taken by Nursing Pulse Oximetry Post Tiitration 07/28/23 04:45 07/28/23 04:50 07/28/23 04:50 Pulse Rate 52 L 52 L Pulse Rate from SpO2 Sensor 52 L Respiratory Rate 21 29 H Blood Pressure 130/70 Blood Pressure Mean 90 Pulse Oximetry 97 Oxygen Delivery Method Oxygen Flow Rate Sepsis Recent Fever Within 48 Hours Sepsis New/Unexplained Change in Mental Status Sepsis Action Taken by Nursing Pulse Oximetry Post Tiitration 07/28/23 04:55 07/28/23 04:55 07/28/23 05:00 Pulse Rate 57 L 71 Pulse Rate from SpO2 Sensor 48 L Respiratory Rate 26 H 21 Blood Pressure 138/67 Blood Pressure Mean 90 Pulse Oximetry 99 Oxygen Delivery Method Oxygen Flow Rate Sepsis Recent Fever Within 48 Hours Sepsis New/Unexplained Change in Mental Status Sepsis Action Taken by Nursing Pulse Oximetry Post Tiitration 07/28/23 05:01 07/28/23 05:01 07/28/23 05:05 Pulse Rate 88 Pulse Rate from SpO2 Sensor 86 Respiratory Rate 34 H Blood Pressure 149/69 H 140/89 Blood Pressure Mean 95 106 Pulse Oximetry 100 Oxygen Delivery Method Oxygen Flow Rate Sepsis Recent Fever Within 48 Hours Sepsis New/Unexplained Change in Mental Status Sepsis Action Taken by Nursing Pulse Oximetry Post Tiitration 07/28/23 05:05 07/28/23 05:10 07/28/23 05:10 Pulse Rate 95 H 95 H Pulse Rate from SpO2 Sensor 92 H 98 H Respiratory Rate 43 H 31 H Blood Pressure 128/93 Blood Pressure Mean 104 Pulse Oximetry 100 98 Oxygen Delivery Method Oxygen Flow Rate Sepsis Recent Fever Within 48 Hours Sepsis New/Unexplained Change in Mental Status Sepsis Action Taken by Nursing Pulse Oximetry Post Tiitration 07/28/23 05:15 07/28/23 05:15 07/28/23 05:20 Pulse Rate 98 H 94 H Pulse Rate from SpO2 Sensor 99 H 96 H Respiratory Rate 27 H 25 H Blood Pressure 149/88 H Blood Pressure Mean 108 Pulse Oximetry 100 100 Oxygen Delivery Method Oxygen Flow Rate Sepsis Recent Fever Within 48 Hours Sepsis New/Unexplained Change in Mental Status Sepsis Action Taken by Nursing Pulse Oximetry Post Tiitration 07/28/23 05:20 07/28/23 05:25 07/28/23 05:25 Pulse Rate 102 H Pulse Rate from SpO2 Sensor Respiratory Rate 42 H Blood Pressure 150/97 H 139/95 Blood Pressure Mean 114 109 Pulse Oximetry Oxygen Delivery Method Oxygen Flow Rate Sepsis Recent Fever Within 48 Hours Sepsis New/Unexplained Change in Mental Status Sepsis Action Taken by Nursing Pulse Oximetry Post Tiitration 07/28/23 05:30 07/28/23 05:30 07/28/23 05:35 Pulse Rate Pulse Rate from SpO2 Sensor 101 H Respiratory Rate 29 H Blood Pressure 139/92 153/85 H Blood Pressure Mean 107 107 Pulse Oximetry 100 Oxygen Delivery Method Oxygen Flow Rate Sepsis Recent Fever Within 48 Hours Sepsis New/Unexplained Change in Mental Status Sepsis Action Taken by Nursing Pulse Oximetry Post Tiitration 07/28/23 05:35 Pulse Rate 103 H Pulse Rate from SpO2 Sensor 102 H Respiratory Rate 26 H Blood Pressure Blood Pressure Mean Pulse Oximetry 95 Oxygen Delivery Method Oxygen Flow Rate Sepsis Recent Fever Within 48 Hours Sepsis New/Unexplained Change in Mental Status Sepsis Action Taken by Nursing Pulse Oximetry Post Tiitration Home Medications Current Medication List: was personally reviewed by me Laboratory Data Attestation: I reviewed the patient's lab results. 07/28/23 04:06 07/28/23 04:06 Lab Results 07/28/23 07/28/23 07/28/23 Range/Units 04:06 04:06 04:06 WBC 10.77 (4.8-10.8) K/ul RBC 5.08 (4.20-5.40) M/uL Hgb 14.5 (12.0-16.0) g/dl POC Hgb (12.0-16.0) g/dl Hct 42.5 (37.0-47.0) % POC Hct (37-47) % MCV 83.7 (80.0-100.0) fL MCH 28.5 (25.0-34.0) pg MCHC 34.1 (32.0-36.0) g/dL RDW Std Deviation 48.0 H (36.4-46.3) fL RDW Coeff of Sharla 15.7 H (11.5-14.5) % Plt Count 314 (130-400) K/uL MPV 9.9 (9.4-12.4) fL Immature Gran % (Auto) 0.4 % Neut % (Auto) 46.5 % Lymph % (Auto) 45.5 % [place] % (Auto) 5.7 % Eos % (Auto) 1.5 % Baso % (Auto) 0.4 % Neut # (Auto) 5.02 (1.40-6.50) K/uL Lymph # (Auto) 4.90 H (1.20-3.40) K/uL [place] # (Auto) 0.61 H (0.11-0.59) K/uL Eos # (Auto) 0.16 (0.00-0.50) K/uL Baso # (Auto) 0.04 (0.00-0.20) K/uL Immature Gran # (Auto) 0.04 (0.01-0.20) K/uL PT 10.5 (9.0-12.0) Seconds INR 1.0 (0.9-1.1) APTT 24.1 (21.0-31.0) Seconds PTT Ratio 0.9 POC Sodium (135-144) mmol/L Sodium 136 (136-145) mmol/L POC Potassium (3.3-5.0) mmol/L Potassium 3.8 (3.5-5.1) mmol/L POC Chloride (101-112) mmol/L Chloride 108 H (98-107) mmol/L Carbon Dioxide 21 (21-32) mmol/L POC Total CO2 (24-31) mmol/L Anion Gap 7 (3-11) POC Anion Gap (16-25) mmol/L POC BUN (7-18) mg/dl BUN 21 (6-23) mg/dl Creatinine 0.84 (0.6-1.2) mg/dl POC Creatinine (0.6-1.3) mg/dl Est Cr Clr Drug Dosing 67.5 ml/min Est GFR ( Amer) 88.2 ml/min Est GFR (Non-Af Amer) 76.1 ml/min BUN/Creatinine Ratio 25.0 H (10-20) Glucose 139 H (70-99(Fasting)) mg/dl POC Glucose (other) (70-99) mg/dl Lactate (0.4-2.0) mmol/L Calcium 9.3 (8.6-10.3) mg/dl POC Ioniz Calcium Satinder (1.12-1.32) mmol/l Total Bilirubin 0.3 (0.2-1.0) mg/dl AST 13 (13-39) U/L ALT 11 (7-52) U/L Alkaline Phosphatase 67 (34-104) U/L Troponin I High Sens 14.2 H (0-14) pg/ml Total Protein 7.0 (6.0-8.3) gm/dl Albumin 4.1 (3.4-5.0) gm/dl Globulin 2.9 (2.5-4.0) gm/dl Albumin/Globulin Ratio 1.4 (0.9-2) Lipase 29 (11-82) U/L SARS-CoV-2 (PCR) (Negative) Influenza Type A (PCR) (Neg) Influenza Type B (PCR) (Neg) RSV (RT-PCR) (Neg) 07/28/23 07/28/23 07/28/23 Range/Units 04:10 04:39 04:46 WBC (4.8-10.8) K/ul RBC (4.20-5.40) M/uL Hgb (12.0-16.0) g/dl POC Hgb 15.0 (12.0-16.0) g/dl Hct (37.0-47.0) % POC Hct 44 (37-47) % MCV (80.0-100.0) fL MCH (25.0-34.0) pg MCHC (32.0-36.0) g/dL RDW Std Deviation (36.4-46.3) fL RDW Coeff of Sharla (11.5-14.5) % Plt Count (130-400) K/uL MPV (9.4-12.4) fL Immature Gran % (Auto) % Neut % (Auto) % Lymph % (Auto) % [place] % (Auto) % Eos % (Auto) % Baso % (Auto) % Neut # (Auto) (1.40-6.50) K/uL Lymph # (Auto) (1.20-3.40) K/uL [place] # (Auto) (0.11-0.59) K/uL Eos # (Auto) (0.00-0.50) K/uL Baso # (Auto) (0.00-0.20) K/uL Immature Gran # (Auto) (0.01-0.20) K/uL PT (9.0-12.0) Seconds INR (0.9-1.1) APTT (21.0-31.0) Seconds PTT Ratio POC Sodium 141 (135-144) mmol/L Sodium (136-145) mmol/L POC Potassium 3.7 (3.3-5.0) mmol/L Potassium (3.5-5.1) mmol/L POC Chloride 106 (101-112) mmol/L Chloride (98-107) mmol/L Carbon Dioxide (21-32) mmol/L POC Total CO2 23 L (24-31) mmol/L Anion Gap (3-11) POC Anion Gap 16.0 (16-25) mmol/L POC BUN 23 H (7-18) mg/dl BUN (6-23) mg/dl Creatinine (0.6-1.2) mg/dl POC Creatinine 0.8 (0.6-1.3) mg/dl Est Cr Clr Drug Dosing ml/min Est GFR ( Amer) ml/min Est GFR (Non-Af Amer) ml/min BUN/Creatinine Ratio (10-20) Glucose (70-99(Fasting)) mg/dl POC Glucose (other) 139 H (70-99) mg/dl Lactate 1.2 (0.4-2.0) mmol/L Calcium (8.6-10.3) mg/dl POC Ioniz Calcium Satinder 1.16 (1.12-1.32) mmol/l Total Bilirubin (0.2-1.0) mg/dl AST (13-39) U/L ALT (7-52) U/L Alkaline Phosphatase (34-104) U/L Troponin I High Sens (0-14) pg/ml Total Protein (6.0-8.3) gm/dl Albumin (3.4-5.0) gm/dl Globulin (2.5-4.0) gm/dl Albumin/Globulin Ratio (0.9-2) Lipase (11-82) U/L SARS-CoV-2 (PCR) NEGATIVE (Negative) Influenza Type A (PCR) Negative (Neg) Influenza Type B (PCR) Negative (Neg) RSV (RT-PCR) Negative (Neg) Administered Medications Acetaminophen (Acetaminophen 325 Mg Tab) 650 mg PO Q4H PRN PRN Reason: MILD Pain (Scale 1,2,3) Stop: 08/27/23 06:28 Last Admin: 08/03/23 07:45 Dose: 650 mg Documented By: Admin: 08/02/23 10:16 Dose: 650 mg Documented By: Admin: 08/01/23 17:00 Dose: 650 mg Documented By: Admin: 07/31/23 15:26 Dose: 650 mg Documented By: Admin: 07/31/23 07:26 Dose: 650 mg Documented By: Admin: 07/30/23 13:31 Dose: 650 mg Documented By: Admin: 07/30/23 09:18 Dose: 650 mg Documented By: Admin: 07/29/23 21:41 Dose: 650 mg Documented By: Admin: 07/29/23 14:21 Dose: 650 mg Documented By: Admin: 07/29/23 07:36 Dose: 650 mg Documented By: Admin: 07/28/23 19:42 Dose: 650 mg Documented By: Admin: 07/28/23 15:25 Dose: 650 mg Documented By: ROYAL Aspirin (Aspirin 81 Mg Ectab) 81 mg PO [facility] Stop: 08/27/23 08:59 Last Admin: 08/03/23 08:36 Dose: 81 mg Documented By: Admin: 08/02/23 08:20 Dose: 81 mg Documented By: Admin: 08/01/23 08:23 Dose: 81 mg Documented By: Admin: 07/31/23 08:15 Dose: 81 mg Documented By: Admin: 07/30/23 08:07 Dose: 81 mg Documented By: Admin: 07/29/23 07:33 Dose: 81 mg Documented By: Admin: 07/28/23 09:44 Dose: 81 mg Documented By: ROYAL Atorvastatin Calcium (Atorvastatin 40 Mg Tab) 80 mg PO QAM STEPHAN Stop: 08/27/23 08:59 Last Admin: 08/03/23 08:37 Dose: 80 mg Documented By: Admin: 08/02/23 08:21 Dose: 80 mg Documented By: Admin: 08/01/23 08:23 Dose: 80 mg Documented By: Admin: 07/31/23 08:16 Dose: 80 mg Documented By: Admin: 07/30/23 08:07 Dose: 80 mg Documented By: Admin: 07/29/23 07:32 Dose: 80 mg Documented By: Admin: 07/28/23 10:58 Dose: 80 mg Documented By: ROYAL Buspirone HCl (Buspirone 7.5 Mg Tab) 22.5 mg PO QID [facility] Stop: 08/27/23 12:59 Last Admin: 08/03/23 08:36 Dose: 22.5 mg Documented By: Admin: 08/02/23 21:03 Dose: 22.5 mg Documented By: Admin: 08/02/23 16:39 Dose: 22.5 mg Documented By: Admin: 08/02/23 13:28 Dose: 22.5 mg Documented By: Admin: 08/02/23 08:21 Dose: 22.5 mg Documented By: Admin: 08/01/23 20:39 Dose: 22.5 mg Documented By: Admin: 08/01/23 17:00 Dose: 22.5 mg Documented By: Admin: 08/01/23 12:59 Dose: 22.5 mg Documented By: Admin: 08/01/23 08:24 Dose: 22.5 mg Documented By: Admin: 07/31/23 20:38 Dose: 22.5 mg Documented By: Admin: 07/31/23 16:41 Dose: 22.5 mg Documented By: Admin: 07/31/23 12:20 Dose: 22.5 mg Documented By: Admin: 07/31/23 08:16 Dose: 22.5 mg Documented By: Admin: 07/30/23 20:23 Dose: 22.5 mg Documented By: Admin: 07/30/23 16:39 Dose: 22.5 mg Documented By: Admin: 07/30/23 13:00 Dose: 22.5 mg Documented By: Admin: 07/30/23 08:08 Dose: 22.5 mg Documented By: Admin: 07/29/23 19:44 Dose: 22.5 mg Documented By: Admin: 07/29/23 17:07 Dose: 22.5 mg Documented By: Admin: 07/29/23 12:20 Dose: 22.5 mg Documented By: Admin: 07/29/23 07:30 Dose: 22.5 mg Documented By: Admin: 07/28/23 21:41 Dose: 22.5 mg Documented By: Admin: 07/28/23 17:15 Dose: 22.5 mg Documented By: Admin: 07/28/23 13:42 Dose: 22.5 mg Documented By: ROYAL Dicyclomine HCl (Dicyclomine Hcl 20 Mg Tab) 20 mg PO QID PRN PRN Reason: IBS Stop: 08/27/23 08:43 Last Admin: 08/01/23 20:38 Dose: 20 mg Documented By: Admin: 07/31/23 20:42 Dose: 20 mg Documented By: Admin: 07/30/23 08:27 Dose: 20 mg Documented By: Admin: 07/29/23 19:46 Dose: 20 mg Documented By: Admin: 07/28/23 19:42 Dose: 20 mg Documented By: Admin: 07/28/23 13:42 Dose: 20 mg Documented By: ROYAL Enoxaparin Sodium (Enoxaparin Inj 40 Mg/0.4 Ml Syr) 40 mg SQ HS STEPHAN Stop: 08/27/23 20:59 Last Admin: 08/01/23 20:36 Dose: 40 mg Documented By: Admin: 07/31/23 20:39 Dose: 40 mg Documented By: Admin: 07/30/23 20:25 Dose: 40 mg Documented By: Admin: 07/29/23 19:44 Dose: 40 mg Documented By: Admin: 07/28/23 21:42 Dose: 40 mg Documented By: TP Ergocalciferol (Ergocalciferol 50,000 Units 1250 Mcg Cap) 50,000 units PO Fr@0900 STEPHAN Stop: 08/29/23 08:59 Last Admin: 07/30/23 08:09 Dose: 50,000 units Documented By: JOSE Gabapentin (Gabapentin 300 Mg Cap) 300 mg PO BID STEPHAN Stop: 08/29/23 13:29 Last Admin: 08/03/23 08:35 Dose: 300 mg Documented By: Admin: 08/02/23 21:03 Dose: 300 mg Documented By: Admin: 08/02/23 08:22 Dose: 300 mg Documented By: Admin: 08/01/23 20:38 Dose: 300 mg Documented By: Admin: 08/01/23 08:24 Dose: 300 mg Documented By: Admin: 07/31/23 20:39 Dose: 300 mg Documented By: Admin: 07/31/23 07:30 Dose: 300 mg Documented By: Admin: 07/30/23 20:23 Dose: 300 mg Documented By: Admin: 07/30/23 14:12 Dose: 300 mg Documented By: JOSE Hydromorphone HCl (Hydromorphone Inj 0.5 Mg/0.5 Ml Syr) 0.5 mg IV Q4H PRN PRN Reason: Severe Pain (7,8,9,10) Stop: 08/13/23 13:25 Last Admin: 08/03/23 08:31 Dose: 0.5 mg Documented By: Admin: 08/03/23 04:57 Dose: 0.5 mg Documented By: Admin: 08/02/23 20:57 Dose: 0.5 mg Documented By: Admin: 08/02/23 16:39 Dose: 0.5 mg Documented By: Admin: 08/02/23 10:56 Dose: 0.5 mg Documented By: Admin: 08/01/23 18:17 Dose: 0.5 mg Documented By: Admin: 08/01/23 10:34 Dose: 0.5 mg Documented By: Admin: 07/31/23 18:00 Dose: 0.5 mg Documented By: JOSE Hyoscyamine (Hyoscyamine Sulfate 0.125 Mg Tab) 0.125 mg PO QID PRN PRN Reason: Abdominal Pain Stop: 08/27/23 08:51 Last Admin: 07/29/23 19:47 Dose: 0.125 mg Documented By: Admin: 07/28/23 22:40 Dose: 0.125 mg Documented By: TP Insulin Aspart (Insulin Aspart Per Unit Charge) 0 units SC ACHS STEPHAN Stop: 08/27/23 11:29 Last Admin: 08/03/23 08:29 Dose: Not Given Documented By: RLDarian Admin: 08/02/23 21:02 Dose: Not Given Documented By: Admin: 08/02/23 16:46 Dose: 2 units Documented By: JOSE Co-signed By: JASMINA Admin: 08/02/23 11:55 Dose: 2 units Documented By: JOSE Co-signed By: JASMINA Admin: 08/02/23 08:04 Dose: Not Given Documented By: Admin: 08/01/23 20:39 Dose: Not Given Documented By: Admin: 08/01/23 16:58 Dose: Not Given Documented By: Admin: 08/01/23 11:43 Dose: 1 units Documented By: JOSE Co-signed By: LAF Admin: 08/01/23 08:02 Dose: Not Given Documented By: Admin: 07/31/23 20:36 Dose: Not Given Documented By: Admin: 07/31/23 16:40 Dose: Not Given Documented By: Admin: 07/31/23 11:38 Dose: 1 units Documented By: JOSE Co-signed By: AM Admin: 07/31/23 07:32 Dose: Not Given Documented By: Admin: 07/30/23 20:29 Dose: Not Given Documented By: Admin: 07/30/23 16:27 Dose: Not Given Documented By: Admin: 07/30/23 11:58 Dose: Not Given Documented By: Admin: 07/30/23 07:51 Dose: Not Given Documented By: Admin: 07/29/23 21:05 Dose: Not Given Documented By: TENZIN Co-signed By: CRYSTAL Admin: 07/29/23 16:59 Dose: Not Given Documented By: Admin: 07/29/23 11:42 Dose: Not Given Documented By: SNEHAL Co-signed By: ZAKI Admin: 07/29/23 08:38 Dose: Not Given Documented By: SNEHAL Co-signed By: JASMINA Admin: 07/28/23 21:27 Dose: Not Given Documented By: Admin: 07/28/23 16:44 Dose: Not Given Documented By: Admin: 07/28/23 11:34 Dose: 3 units Documented By: ROYAL Co-signed By: ANGELA Lidocaine (Lidocaine 5% 1 Patch) 1 patch TD HS STEPHAN Stop: 08/29/23 20:59 Last Admin: 08/02/23 21:04 Dose: 1 patch Documented By: Admin: 08/01/23 20:35 Dose: 1 patch Documented By: Admin: 07/31/23 20:36 Dose: 1 patch Documented By: Admin: 07/30/23 20:22 Dose: 1 patch Documented By: BLAKE Linaclotide (Linaclotide 145 Mcg Capsule) 290 mcg PO DAILY STEPHAN Stop: 08/28/23 14:09 Last Admin: 08/03/23 08:37 Dose: 290 mcg Documented By: Admin: 08/02/23 08:23 Dose: 290 mcg Documented By: Admin: 08/01/23 08:25 Dose: 290 mcg Documented By: Admin: 07/31/23 08:17 Dose: 290 mcg Documented By: Admin: 07/30/23 08:09 Dose: 290 mcg Documented By: Admin: 07/29/23 15:27 Dose: 290 mcg Documented By: SNEHAL Lorazepam (Lorazepam 0.5 Mg Tab) 0.5 mg PO TID STEPHAN Stop: 08/27/23 08:59 Last Admin: 08/03/23 08:31 Dose: 0.5 mg Documented By: Admin: 08/02/23 20:58 Dose: 0.5 mg Documented By: Admin: 08/02/23 13:28 Dose: 0.5 mg Documented By: Admin: 08/02/23 08:26 Dose: 0.5 mg Documented By: Admin: 08/01/23 20:38 Dose: 0.5 mg Documented By: Admin: 08/01/23 13:58 Dose: 0.5 mg Documented By: Admin: 08/01/23 08:22 Dose: 0.5 mg Documented By: Admin: 07/31/23 20:37 Dose: 0.5 mg Documented By: Admin: 07/31/23 13:28 Dose: 0.5 mg Documented By: Admin: 07/31/23 08:17 Dose: 0.5 mg Documented By: Admin: 07/30/23 20:21 Dose: 0.5 mg Documented By: Admin: 07/30/23 13:47 Dose: 0.5 mg Documented By: Admin: 07/30/23 08:13 Dose: 0.5 mg Documented By: Admin: 07/29/23 19:44 Dose: 0.5 mg Documented By: Admin: 07/29/23 14:17 Dose: 0.5 mg Documented By: Admin: 07/29/23 07:37 Dose: 0.5 mg Documented By: Admin: 07/28/23 21:39 Dose: 0.5 mg Documented By: Admin: 07/28/23 13:42 Dose: 0.5 mg Documented By: Admin: 07/28/23 09:45 Dose: 0.5 mg Documented By: ROYAL Metoprolol Succinate (Metoprolol Succ 25mg Ext Rel Tab) 25 mg PO QAM STEPHAN Stop: 08/29/23 11:14 Last Admin: 08/03/23 08:36 Dose: 25 mg Documented By: Admin: 08/02/23 08:23 Dose: 25 mg Documented By: Admin: 08/01/23 08:25 Dose: 25 mg Documented By: Admin: 07/31/23 08:17 Dose: 25 mg Documented By: Admin: 07/30/23 11:25 Dose: 25 mg Documented By: JOSE Miscellaneous (Remove Lidoderm Patch) 1 each N/A DAILY@0900 [facility] Stop: 08/29/23 08:59 Last Admin: 08/03/23 08:38 Dose: 1 each Documented By: Admin: 08/02/23 08:23 Dose: 1 each Documented By: Admin: 08/01/23 08:26 Dose: 1 each Documented By: Admin: 07/31/23 08:18 Dose: 1 each Documented By: Admin: 07/30/23 08:10 Dose: 1 each Documented By: JOSE Suvorexant 20mg Tab ([Patient Own Med]) 1 each PO HS PRN PRN Reason: Sleep Stop: 08/29/23 20:59 Last Admin: 08/02/23 20:58 Dose: 20 mg Documented By: Admin: 08/01/23 21:31 Dose: 20 mg Documented By: Admin: 07/31/23 20:35 Dose: 20 mg Documented By: Admin: 07/30/23 20:24 Dose: 20 mg Documented By: BLAKE Pantoprazole Sodium (Pantoprazole 40 Mg Tab) 40 mg PO BID STEPHAN; Protocol Stop: 08/28/23 20:59 Last Admin: 08/03/23 08:37 Dose: 40 mg Documented By: Admin: 08/02/23 21:04 Dose: 40 mg Documented By: Admin: 08/02/23 08:23 Dose: 40 mg Documented By: Admin: 08/01/23 20:38 Dose: 40 mg Documented By: Admin: 08/01/23 08:26 Dose: 40 mg Documented By: Admin: 07/31/23 20:37 Dose: 40 mg Documented By: Admin: 07/31/23 08:17 Dose: 40 mg Documented By: Admin: 07/30/23 20:22 Dose: 40 mg Documented By: Admin: 07/30/23 08:10 Dose: 40 mg Documented By: Admin: 07/29/23 19:44 Dose: 40 mg Documented By: TENZIN Quetiapine Fumarate (Quetiapine Fumarate 300 Mg Tablet) 300 mg PO HS STEPHAN Stop: 08/29/23 20:59 Last Admin: 08/02/23 21:05 Dose: 300 mg Documented By: Admin: 08/01/23 20:38 Dose: 300 mg Documented By: Admin: 07/31/23 20:39 Dose: 300 mg Documented By: Admin: 07/30/23 20:23 Dose: 300 mg Documented By: BLAKE Sucralfate (Sucralfate 1 Gm/10 Ml Udc) 1 gm PO BID STEPHAN Stop: 08/28/23 20:59 Last Admin: 08/03/23 08:38 Dose: 1 gm Documented By: Admin: 08/02/23 21:05 Dose: 1 gm Documented By: Admin: 08/02/23 08:24 Dose: 1 gm Documented By: Admin: 08/01/23 20:36 Dose: 1 gm Documented By: Admin: 08/01/23 08:26 Dose: 1 gm Documented By: Admin: 07/31/23 20:37 Dose: 1 gm Documented By: Admin: 07/31/23 08:18 Dose: 1 gm Documented By: Admin: 07/30/23 20:22 Dose: 1 gm Documented By: Admin: 07/30/23 08:11 Dose: 1 gm Documented By: Admin: 07/29/23 19:44 Dose: 1 gm Documented By: TP Thyroid ([place] Thyroid 30 Mg Tab) 60 mg PO DAILY STEPHAN Stop: 08/28/23 08:59 Last Admin: 08/03/23 08:37 Dose: 60 mg Documented By: Admin: 08/02/23 08:24 Dose: 60 mg Documented By: Admin: 08/01/23 08:26 Dose: 60 mg Documented By: Admin: 07/31/23 08:18 Dose: 60 mg Documented By: Admin: 07/30/23 08:11 Dose: 60 mg Documented By: Admin: 07/29/23 07:32 Dose: 60 mg Documented By: SNEHAL Ticagrelor (Ticagrelor 90 Mg Tab) 90 mg PO BID STEPHAN Stop: 08/27/23 20:59 Last Admin: 08/03/23 08:38 Dose: 90 mg Documented By: Admin: 08/02/23 21:04 Dose: 90 mg Documented By: Admin: 08/02/23 08:24 Dose: 90 mg Documented By: Admin: 08/01/23 20:38 Dose: 90 mg Documented By: Admin: 08/01/23 08:27 Dose: 90 mg Documented By: Admin: 07/31/23 20:37 Dose: 90 mg Documented By: Admin: 07/31/23 08:18 Dose: 90 mg Documented By: Admin: 07/30/23 20:23 Dose: 90 mg Documented By: Admin: 07/30/23 08:12 Dose: 90 mg Documented By: Admin: 07/29/23 19:45 Dose: 90 mg Documented By: Admin: 07/29/23 07:30 Dose: 90 mg Documented By: Admin: 07/28/23 21:43 Dose: 90 mg Documented By: TP Tramadol HCl (Tramadol Hcl 50 Mg Tablet) 50 mg PO Q4H PRN PRN Reason: Moderate Pain (4,5,6) Stop: 08/28/23 07:33 Last Admin: 08/03/23 06:39 Dose: 50 mg Documented By: Admin: 08/02/23 21:15 Dose: 50 mg Documented By: Admin: 08/02/23 15:45 Dose: 50 mg Documented By: Admin: 08/02/23 09:14 Dose: 50 mg Documented By: Admin: 08/01/23 20:37 Dose: 50 mg Documented By: Admin: 08/01/23 13:59 Dose: 50 mg Documented By: Admin: 08/01/23 08:22 Dose: 50 mg Documented By: Admin: 07/31/23 20:38 Dose: 50 mg Documented By: Admin: 07/31/23 16:39 Dose: 50 mg Documented By: Admin: 07/31/23 12:18 Dose: 50 mg Documented By: Admin: 07/31/23 05:23 Dose: 50 mg Documented By: Admin: 07/30/23 19:24 Dose: 50 mg Documented By: Admin: 07/30/23 13:01 Dose: 50 mg Documented By: Admin: 07/30/23 07:56 Dose: 50 mg Documented By: Admin: 07/30/23 01:34 Dose: 50 mg Documented By: Admin: 07/29/23 19:48 Dose: 50 mg Documented By: Admin: 07/29/23 12:19 Dose: 50 mg Documented By: SNEHAL Discontinued Medications Acetaminophen (Acetaminophen 1000 Mg/100 Ml Iv) Confirm Administered Dose 1,000 mg IV .STK-MED ONE Stop: 07/28/23 23:53 Last Admin: 07/28/23 23:55 Dose: Not Given Documented By: TENZIN Aspirin (Aspirin Chew 324 Mg) Confirm Administered Dose 324 mg .ROUTE .STK-MED ONE Stop: 07/28/23 03:52 Last Admin: 07/28/23 03:53 Dose: 324 mg Documented By: MAGALY Azithromycin (Azithromycin 250 Mg Tab) 500 mg PO Q24H [facility]; Protocol Stop: 08/04/23 08:59 Last Admin: 07/29/23 07:32 Dose: 500 mg Documented By: Admin: 07/28/23 11:13 Dose: 500 mg Documented By: ROYAL Azithromycin (Azithromycin 250 Mg Tab) 250 mg PO Q24H STEPHAN; Protocol Stop: 08/05/23 07:59 Last Admin: 07/29/23 08:39 Dose: Not Given Documented By: SNEHAL Buspirone HCl (Buspirone 15 Mg Tab) 30 mg PO TID [facility] Stop: 08/27/23 08:59 Last Admin: 07/28/23 09:44 Dose: 30 mg Documented By: ROYAL Fentanyl Citrate (Fentanyl Citrate Pf 100 Mcg/2 Ml Vial) 50 mcg IV NOW [facility] Stop: 07/28/23 04:01 Last Admin: 07/28/23 04:36 Dose: 50 mcg Documented By: MAGALY Fentanyl Citrate (Fentanyl Citrate Pf 100 Mcg/2 Ml Vial) Confirm Administered Dose 100 mcg .ROUTE .STK-MED ONE Stop: 07/28/23 05:37 Last Admin: 07/28/23 07:10 Dose: 50 mcg Documented By: FLORIAN Heparin Sodium (Porcine) (Heparin (Porcine) 1000 Unit/Ml 10 Ml (Fat Purification Worker Use Only)) Confirm Administered Dose 10,000 units .ROUTE .STK-MED ONE Stop: 07/28/23 05:37 Last Admin: 07/28/23 07:11 Dose: 7,000 units Documented By: FLORIAN Heparin Sodium/Sodium Chloride (Heparin In Nss Infusion 1000 Unit/500 Ml (2 U/Ml) Bag) Confirm Administered Dose 3,000 units IV .STK-MED ONE Stop: 07/28/23 05:38 Last Admin: 07/28/23 07:11 Dose: 3,000 units Documented By: PAO Sodium Chloride (Nss) 1,000 mls @ 75 mls/hr IV .[id number] STEPHAN Stop: 07/28/23 19:00 Last Infusion: 07/28/23 20:46 Dose: 0 mls/hr Documented By: Admin: 07/28/23 07:26 Dose: 75 mls/hr Documented By: ROYAL Ceftriaxone Sodium 1,000 mg/ (Dextrose) 60 mls @ 100 mls/hr IV Q24H STEPHAN; Sola col Stop: 08/04/23 10:59 Last Infusion: 07/29/23 18:43 Dose: 0 mls/hr Documented By: Admin: 07/29/23 12:07 Dose: 100 mls/hr Documented By: Infusion: 07/28/23 11:35 Dose: 0 mls/hr Documented By: Admin: 07/28/23 10:58 Dose: 100 mls/hr Documented By: ROYAL Acetaminophen (Ofirmev) 1,000 mg in 100 mls @ 400 mls/hr IV NOW ONE Stop: 07/30/23 00:14 Last Infusion: 07/29/23 00:09 Dose: 0 mls/hr Documented By: Admin: 07/28/23 23:54 Dose: 400 mls/hr Documented By: TENZIN Ioversol (Ioversol 350 Mg 125ml Prefilled Syringe) 118 ml IV ONCE ONE Stop: 07/28/23 04:28 Last Admin: 07/28/23 04:27 Dose: 118 ml Documented By: NANI Ioversol (Optiray 320 100ml) 94 ml IV ONCE ONE Stop: 07/28/23 06:40 Last Admin: 07/28/23 06:40 Dose: 94 ml Documented By: ARLETH Lidocaine (Lidocaine 5% 1 Patch) 1 patch TD NOW STA Stop: 07/28/23 22:23 Last Admin: 07/28/23 22:40 Dose: 1 patch Documented By: TENZIN Lidocaine (Lidocaine 5% 1 Patch) 1 patch TD NOW ONE Stop: 07/29/23 22:16 Last Admin: 07/29/23 22:26 Dose: 1 patch Documented By: TENZIN Metoprolol Tartrate (Metoprolol Tartrate 25 Mg Tab) 12.5 mg PO BID STEPHAN Stop: 08/27/23 08:59 Last Admin: 07/29/23 07:30 Dose: 12.5 mg Documented By: Admin: 07/28/23 21:41 Dose: 12.5 mg Documented By: Admin: 07/28/23 09:45 Dose: 12.5 mg Documented By: ROYAL Metoprolol Tartrate (Metoprolol Tartrate 25 Mg Tab) 25 mg PO BID [facility] Stop: 08/28/23 08:59 Last Admin: 07/30/23 09:15 Dose: Not Given Documented By: Admin: 07/29/23 19:45 Dose: 25 mg Documented By: Admin: 07/29/23 08:39 Dose: 12.5 mg Documented By: SNEHAL Midazolam HCl (Midazolam Hcl 1 Mg/Ml 2ml Vial) Confirm Administered Dose 2 mg .ROUTE .STK-MED ONE Stop: 07/28/23 05:37 Last Admin: 07/28/23 07:11 Dose: 1 mg Documented By: FLORIAN Reevescellaneous (*Belsomra*Order Awaiting Action) 1 each N/A QS [facility] Stop: 08/27/23 09:59 Last Admin: 07/30/23 15:00 Dose: Not Given Documented By: Admin: 07/30/23 07:52 Dose: Not Given Documented By: Admin: 07/30/23 00:52 Dose: Not Given Documented By: Admin: 07/29/23 15:21 Dose: Not Given Documented By: Admin: 07/29/23 07:39 Dose: Not Given Documented By: Admin: 07/29/23 00:42 Dose: Not Given Documented By: Admin: 07/28/23 15:06 Dose: Not Given Documented By: Admin: 07/28/23 10:10 Dose: Not Given Documented By: ROYAL Miscellaneous (Remove Lidoderm Patch) 1 each N/A TODAY@1022 ONE Stop: 07/29/23 10:23 Last Admin: 07/29/23 11:44 Dose: 1 each Documented By: SNEHAL Nicardipine HCl (Nicardipine Hcl Inj 2.5 Mg/Ml 10 Ml Amp) Confirm Administered Dose 25 mg .ROUTE .STK-MED ONE Stop: 07/28/23 05:37 Last Admin: 07/28/23 07:12 Dose: 25 mg Documented By: PAO Nitroglycerin (Nitroglycerin 2% Ointment 30gm Tube) 1 inch EXT NOW STA Stop: 07/28/23 03:56 Last Admin: 07/28/23 04:56 Dose: Not Given Documented By: FLORIAN(2) Nitroglycerin (Nitroglycerin Sl 0.4 Mg/Tab Tab) Confirm Administered Dose 0.4 mg .ROUTE .STK-MED ONE Stop: 07/28/23 03:59 Last Admin: 07/28/23 04:00 Dose: 0.4 mg Documented By: MAGALY Nitroglycerin/Dextrose (Nitroglycerin/D5w 100mcg/Ml 20ml Syr) Confirm Administered Dose 2,000 mcg .ROUTE .STK-MED ONE Stop: 07/28/23 05:39 Last Admin: 07/28/23 07:12 Dose: 2,000 mcg Documented By: PAO Ondansetron HCl (Ondansetron Inj 2 Mg/Ml 2 Ml Vial) 4 mg IV NOW STA Stop: 07/28/23 03:56 Last Admin: 07/28/23 07:11 Dose: Not Given Documented By: MARYCHUY Ondansetron HCl (Ondansetron Inj 2 Mg/Ml 2 Ml Vial) 4 mg IV NOW STA Stop: 07/28/23 04:01 Last Admin: 07/28/23 04:15 Dose: 4 mg Documented By: MAGALY Oxycodone HCl (Oxycodone Hcl Ir 5 Mg Tab (Immediate Release)) 2.5 mg PO NOW STA Stop: 07/28/23 16:14 Last Admin: 07/28/23 16:25 Dose: 2.5 mg Documented By: ROYAL Oxycodone HCl (Oxycodone Hcl Ir 5 Mg Tab (Immediate Release)) 2.5 mg PO Q4H PRN PRN Reason: Pain Stop: 08/11/23 16:59 Last Admin: 07/28/23 21:40 Dose: 2.5 mg Documented By: Admin: 07/28/23 17:19 Dose: 2.5 mg Documented By: ROYAL Pantoprazole Sodium (Pantoprazole 40 Mg Tab) 40 mg PO DAILY STEPHAN; Protocol Stop: 08/28/23 08:59 Last Admin: 07/29/23 07:33 Dose: 40 mg Documented By: SNEHAL Potassium Chloride (Potassium Chloride Crtab 20 Meq Tabcr) 20 meq PO ONCE ONE Stop: 07/28/23 10:46 Last Admin: 07/28/23 10:58 Dose: 20 meq Documented By: ROYAL Ticagrelor (Ticagrelor 90 Mg Tab) Confirm Administered Dose 180 mg .ROUTE .STK- MED ONE Stop: 07/28/23 06:56 Last Admin: 07/28/23 07:12 Dose: 180 mg Documented By: FLORIAN Imaging Data Radiologist's Impression: Chest X-Ray 07/28/23 03:55 XR chest 1V portable HISTORY: 57 years-old Female Chest pain, nonspecific COMPARISON: CTA chest of same day TECHNIQUE: AP view of the chest FINDINGS: Cardiac silhouette is enlarged. Atherosclerosis of the aorta. No pneumothorax or pleural effusion. Mixed interstitial and alveolar opacities are most pronounced in the lower lung zones. Bones appear grossly intact. IMPRESSION: Cardiomegaly with lower lung zone predominant mixed interstitial and alveolar opacities suspicious for a nonspecific pneumonitis. ACT 112: Negative or not required by law. The above report was generated using voice recognition software. It may contain grammatical, syntax or spelling errors. Electronically signed by: Jose Stahl M.D. 07/28/2023 7:03 AM Chest CTA 07/28/23 04:00 Exam(s): CTA CHEST W/WO Contrast IV Amt: 118 ml opti 350 EXAM: CT Angiography Chest Without and With Intravenous Contrast CLINICAL HISTORY: Reason for exam: chest abd pain, collapse, 3rd degree HB. TECHNIQUE: Axial computed tomographic angiography images of the chest without and with intravenous contrast. CTDI is 22.86 mGy and DLP is 681.06 mGy-cm. Automated exposure control was utilized for the study. A dose lowering technique was utilized adhering to the principles of ALARA. MIP reconstructed images were created and reviewed. CONTRAST: Patient received 118 ml opti 350 of IV contrast COMPARISON: No relevant prior studies available. FINDINGS: Pulmonary arteries: Unremarkable. No acute pulmonary embolism. Aorta: No acute findings. No thoracic aortic aneurysm. Lungs: Patchy multifocal groundglass and consolidative densities are seen scattered in the lungs, more so involving the lower lobes. 7.9 mm nodule seen in the lingula on image 24, series 2. Pleural space: Unremarkable. No significant effusion. No pneumothorax. Heart: There is mild left ventriculomegaly. No significant pericardial effusion. No evidence of RV dysfunction. Bones/joints: No acute fracture. No dislocation. Soft tissues: Unremarkable. Lymph nodes: Unremarkable. No enlarged lymph nodes. Gallbladder and bile ducts: Cholecystectomy. Adrenals: Nodularity seen in the left adrenal gland, measuring up to 2. 1 cm in diameter. IMPRESSION: 1. Bilateral multifocal groundglass and consolidative densities are suggestive of pneumonia 2. Left adrenal nodularity Electronically signed by: Geoff George MD 07/28/23 05:46 AM Discharge Plan Visit Data Chief Complaint: Cardiac Assessment Stated Complaint: sycope ED Provider: Yoanna Nazario Discharge Problem: Acute ME, inferior wall, Mobitz type 1 second degree AV block Patient Disposition: Admitted As Inpatient Discharge Instructions Interventions: ED Discharge Assessment Last Done: 07/28/23 05:52
[2023-07-28 07:20] LABS: Basophils # (auto) 0.03 K/uL (0.00-0.20); Basophils % (auto) 0.3 %; Eosinophils # (auto) 0.04 K/uL (0.00-0.50); Eosinophils % (auto) 0.4 %; Hematocrit (blood only) 43.7 % (37.0-47.0); Hemoglobin 14.7 g/dl (12.0-16.0); Immature Granulocytes # (auto) 0.04 K/uL (0.01-0.20); Immature Granulocytes % (auto) 0.4 %; Lymphocytes # (auto) 1.76 K/uL (1.20-3.40); Lymphocytes % (auto) 17.5 %; Mean Corpuscular Hemoglobin 28.4 pg (25.0-34.0); Mean Corpuscular Hgb Conc 33.6 g/dL (32.0-36.0); Mean Corpuscular Volume 84.5 fL (80.0-100.0); Mean Platelet Volume 9.7 fL (9.4-12.4); Monocytes # (auto) 0.28 K/uL (0.11-0.59); Monocytes % (auto) 2.8 %; Neutrophils # (auto) 7.91 K/uL (1.40-6.50); Neutrophils % (auto) 78.6 %; Platelet Count 265 K/uL (130-400); RDW Coefficient of Variation 15.8 % (11.5-14.5); RDW Standard Deviation 49.1 fL (36.4-46.3); Red Blood Count 5.17 M/uL (4.20-5.40); White Blood Count 10.06 K/ul (4.8-10.8)
[2023-07-28 07:41] LABS: Chol HDL Ratio 6.9 (0-5)
--- NOTE | 2023-07-28 08:07 | Critical Care Consultation ---
Date of Consultation July 28, 2023 Assessment & Plan (1) Anxiety: Continue home Wellbutrin, Seroquel, Lorazepam (2) Irritable bowel syndrome: Consider GI consult given sustained abdominal pain and history of IBS as well as overseas travel, unable to view outside records for outpatient work-up at this time Static imaging without explanation for symptoms For now, continue home regimen PRN (3) Infiltrate of both lungs present on imaging study: IS/Flutter Pulmonary hygiene Respiratory-driven protocol Follow fever curve, consider sputum culture as able, follow off antibiotics Repeat CXR tomorrow (4) Acute myocardial infarction involving right coronary artery: Now S/P TOMMIE to RCA with ISAEL 3 flow Continue DAPT per Cardiology TTE today High-intensity statin Start BB +/- ACEI/ARB as hemodynamics allow IVF x12hr given contrast load (5) Abdominal pain: As above, consider GI consultation on routine basis, seems her abdominal pain is debilitating enough to warrant further investigation (6) Bradycardia: Resolved, repeat EKG this AM improved, NSR, no ischemic changes Plan See problem-based plan ICU bundle DVT PPX: Enoxaparin tomorrow if OK with Cardiology, SCDs SUP: Can consider PPI while on DAPT Bowel regimen: As above History of Present Illness Reason for Consultation: "STEMI" Attending Physician: Seth Latham MD, PhD History of Present Illness Ms. Greg Gayle is a 57YO F with a history of anxiety, depression, osteoporosis 2/2 vitamin D deficiency, tobacco use disorder, IBS, falls, and lumbar compression fractures who presented to [facility] ED early the morning of 07/28/2023 due to chest pain and subsequent syncope. Per chart review, patient reported to her that she was feeling unwell, clutched her chest and stated she felt as though she was having a heart attack. Shortly after that she had a syncopal event. In ED, patient received nitroglycerin SL, Zofran, and started on maintenance IVF. EKG revealed sinus bradycardia with 1st degree AV block, ST depression and T-wave inversion of lateral leads. 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 She was transferred to ICU for post-operative care. Patient was seen in ICU 11. Hemodynamically stable, afebrile, AV block has resolved s/p PCI. She is AAOx4. Feels tired, but otherwise improved. Chest pain has resolved. She is currently complaining of abdominal pain which has been occuring for approximately 3 months. In April patient went to [facility] and came back to the [place] July 16. She was seen by a physician in [place] due to nausea, vomiting, abdominal pain, and fevers for a few days. They reportedly performed an ultrasound but the findings are unknown. No other imaging or work-up performed, but they did suggest colonoscopy at that time. Since arriving back to the [place] she has continued to have abdominal pain, most severe about the LLQ. Feels "there is something there". + diarrhea, though patient does have constipation-type IBS for which she takes dicyclomine and hyoscyamine. CTA chest, CT AP performed revealing ground-glass opacities bilaterally suggestive of pneumonia. No RP bleed about access site. No findings to explain abdominal pain. Allergies Allergy/AdvReac Type Severity Reaction Status Date / Time egg Allergy Unknown HIVES, Verified 09/05/20 10:21 FACIAL SWELLING codeine AdvReac Unknown ABDOMINAL Verified 09/05/20 10:21 PAIN-IBS morphine AdvReac Unknown ABDOMINAL Verified 09/05/20 10:21 PAIN-IBS Opioids - Morphine Analogues AdvReac Unknown Nausea Verified 07/28/23 06:39 Home Medications Medication Instructions Recorded Confirmed Type dicyclomine 20 mg tablet 20 mg PO QID PRN IBS 10/03/18 07/28/23 History hyoscyamine sulfate 0.125 mg 0.125 mg sublingual QID PRN 10/03/18 07/28/23 History sublingual tablet Abdominal Pain lorazepam 0.5 mg tablet 0.5 mg PO TID anxiety 09/05/20 07/28/23 History suvorexant 20 mg tablet (Belsomra) 20 mg PO HS PRN Sleep 09/05/20 07/28/23 History buspirone 15 mg tablet 22.5 mg PO QID 07/28/23 07/28/23 History cholecalciferol (vitamin D3) 1,250 50,000 unit PO FR@0900 07/28/23 07/28/23 History mcg (50,000 unit) capsule denosumab 60 mg/mL subcutaneous See Rx Instructions .Route .COMPLEX 07/28/23 07/28/23 History syringe (Prolia) glipizide 5 mg tablet, extended 5 mg PO DAILY 07/28/23 07/28/23 History release 24 hr omeprazole 40 mg capsule,delayed 40 mg PO DAILY 07/28/23 07/28/23 History release progesterone micronized 200 mg 400 mg PO HS 07/28/23 07/28/23 History capsule thyroid (pork) 60 mg tablet 60 mg PO DAILY 07/28/23 07/28/23 History ([place] Thyroid) Patient History Medical History (Updated 07/28/23 @ 08:51 by Seth Oliver DO) Anxiety Osteoporosis Vitamin D insufficiency Social History Smoking Status: Current every day smoker Tobacco Type: Cigarettes Hx Alcohol Use: No Hx Substance Use: No Preferred Language: Telugu Communication Ability: Effective Machine Riveter Required: No Beliefs That Will Affect Care: None Current Living Situation: Spouse Feels Safe at Home: Yes Review of Systems Review of Systems: All systems reviewed & are unremarkable except as noted in Subjective Physical Exam Constitutional: Generally well-appearing and well-nourished No acute distress Eyes: PERRL, conjunctivae normal, anicteric sclerae ENMT: external ear and nose normal, oropharynx normal Neck: trachea midline, no thyromegaly Respiratory: Poor effort, no adventitious sounds Cardiovascular: RRR, no murmur, no edema Gastrointestinal (Abdomen): Inspection/Auscultation: abdomen normal to inspection and normal bowel sounds Percussion/Palpation: + abdomen tender, + guarding (voluntary guarding, non-peritoneal) and abdomen soft Skin: no rashes, warm and dry (No edema) Neurologic: No focal deficits, strength and sensation intact Results & Data Results & Data Vital Signs (Past 12 Hours) Vital Signs Temp Pulse Pulse Resp BP BP Pulse Ox 07/28/23 07:15 82 20 138/80 99 07/28/23 07:00 36.8 C 92 H 20 111/86 100 07/28/23 07:15 101 H 17 98 07/28/23 07:10 111/86 07/28/23 07:10 96 H 37 H 98 07/28/23 07:00 96 H 15 96 07/28/23 06:56 101 H 15 07/28/23 06:55 125/74 07/28/23 05:35 103 H 26 H 95 07/28/23 05:35 153/85 H 07/28/23 05:30 29 H 100 07/28/23 05:30 139/92 07/28/23 05:25 102 H 42 H 07/28/23 05:25 139/95 07/28/23 05:20 150/97 H 07/28/23 05:20 94 H 25 H 100 07/28/23 05:15 98 H 27 H 100 07/28/23 05:15 149/88 H 07/28/23 05:10 95 H 31 H 98 07/28/23 05:10 128/93 07/28/23 05:05 95 H 43 H 100 07/28/23 05:05 140/89 07/28/23 05:01 88 34 H 100 07/28/23 05:01 149/69 H 07/28/23 05:00 71 21 07/28/23 04:55 138/67 07/28/23 04:55 57 L 26 H 99 07/28/23 04:50 52 L 29 H 07/28/23 04:50 130/70 07/28/23 04:45 52 L 21 97 07/28/23 04:45 135/68 07/28/23 04:40 73 28 H 97 07/28/23 04:40 121/61 07/28/23 05:52 96 H 20 153/85 H 100 07/28/23 05:18 97 H 07/28/23 04:28 44 L 07/28/23 04:35 50 L 22 111/63 96 07/28/23 04:28 49 L 19 118/61 94 07/28/23 04:24 79 20 91/49 L 94 07/28/23 04:22 36 L 19 92 07/28/23 04:34 07/28/23 04:01 72 28 H 146/92 H 100 O2 Del Method O2 Flow Rate 07/28/23 07:15 Nasal Cannula 2 07/28/23 07:00 Nasal Cannula 2 07/28/23 07:15 07/28/23 07:10 07/28/23 07:10 07/28/23 07:00 07/28/23 06:56 07/28/23 06:55 07/28/23 05:35 07/28/23 05:35 07/28/23 05:30 07/28/23 05:30 07/28/23 05:25 07/28/23 05:25 07/28/23 05:20 07/28/23 05:20 07/28/23 05:15 07/28/23 05:15 07/28/23 05:10 07/28/23 05:10 07/28/23 05:05 07/28/23 05:05 07/28/23 05:01 07/28/23 05:01 07/28/23 05:00 07/28/23 04:55 07/28/23 04:55 07/28/23 04:50 07/28/23 04:50 07/28/23 04:45 07/28/23 04:45 07/28/23 04:40 07/28/23 04:40 07/28/23 05:52 Non-rebreather 10 07/28/23 05:18 07/28/23 04:28 07/28/23 04:35 07/28/23 04:28 07/28/23 04:24 07/28/23 04:22 07/28/23 04:34 Non-rebreather 15 07/28/23 04:01 Non-rebreather 15 Diagnostic Findings T abdomen pelvis wo/w con CT DOSE: 2415.85 mGy.cm CLINICAL HISTORY: acute abdominal pain post cardiac cath TECHNIQUE: Multiaxial CT images of the abdomen and pelvis were performed both before and after the intravenous administration of 94 cc of Optiray 320. Sagittal and coronal reformations were performed at the workstation by the radiologist. A dose lowering technique was utilized adhering to the principles of ALARA. COMPARISON STUDY: Abdomen and pelvis CT 06/15/2018. Chest CTA 07/28/2023. FINDINGS: Patchy and linear bilateral lower lobe densities are better appreciated on the same day chest CT. This may represent atelectasis or pneumonia. No pneumoperitoneum. No pneumatosis. L2 vertebroplasty is noted. Old mild superior endplate compression deformities at L4 and L5. Old mild inferior endplate compression deformities at T8 and T10. Residual contrast within the urinary system from the recent cardiac catheterization. Noncontrast imaging through the abdominal aorta demonstrates moderate calcified plaque. No evidence for an intramural hematoma. The abdominal aorta is normal in course and caliber. The iliac and femoral vessels are also normal in course and caliber with no evidence for dissection, stenosis, or occlusion. No retroperitoneal hematoma. Trace hemorrhage anterior to the common femoral vessels best seen on image 297. No active arterial extravasation identified to suggest a pseudoaneurysm. This is consistent with the access point for the cardiac catheterization. There is an overlying pressure dressing identified. Cholecystectomy. The main portal vein is patent. The liver, spleen, and pancreas are unremarkable. Subcentimeter hypodense lesions within the left kidney are technically too small to characterize but favor cysts. The right kidney enhances normally. No hydronep hrosis. Bilateral low-density adrenal gland nodules remain stable. These favor benign adenomas. No retroperitoneal or pelvic lymphadenopathy. No pelvic free fluid. No bowel wall thickening or obstruction. The uterus and bilateral adnexa are unremarkable. No bowel wall thickening or obstruction. IMPRESSION: 1. Trace hemorrhage anterior to the common femoral vessels consistent with expected postcatheterization changes. No active arterial extravasation or pseudoaneurysm identified. No retroperitoneal hematoma. 2. No bowel wall thickening or obstruction. 3. Normal caliber abdominal aorta. No evidence for a dissection. 4. Patchy and linear bibasilar densities. This may represent atelectasis or a pneumonitis. 5. Stable low-density bilateral adrenal gland nodules. These favor benign adenomas. 6. Additional findings as described above. EXAM: CT Angiography Chest Without and With Intravenous Contrast FINDINGS: Pulmonary arteries: Unremarkable. No acute pulmonary embolism. Aorta: No acute findings. No thoracic aortic aneurysm. Lungs: Patchy multifocal groundglass and consolidative densities are seen scattered in the lungs, more so involving the lower lobes. 7.9 mm nodule seen in the lingula on image 24, series 2. Pleural space: Unremarkable. No significant effusion. No pneumothorax. Heart: There is mild left ventriculomegaly. No significant pericardial effusion. No evidence of RV dysfunction. Bones/joints: No acute fracture. No dislocation. Soft tissues: Unremarkable. Lymph nodes: Unremarkable. No enlarged lymph nodes. Gallbladder and bile ducts: Cholecystectomy. Adrenals: Nodularity seen in the left adrenal gland, measuring up to 2. 1 cm in diameter. IMPRESSION: 1. Bilateral multifocal groundglass and consolidative densities are suggestive of pneumonia 2. Left adrenal nodularity ECG Findings: + mobitz I block, + ST depression and + T-wave inversion Coding Level of Care Code 49840 IN/OBS CONSULT LVL 3,45M Diagnoses Anxiety F41.9 Irritable bowel syndrome K58.9 Infiltrate of both lungs present on imaging study R91.8 Acute myocardial infarction involving right coronary artery I21.11 Abdominal pain R10.9 Bradycardia R00.1 Time Spent (min) 45
--- NOTE | 2023-07-28 08:22 | History & Physical Report ---
Date of Service July 28, 2023 Assessment & Plan (1) Acute myocardial infarction involving right coronary artery: Plan: s/p TOMMIE to RCA occlusion this morning with resolution of chest pain and symptoms. Post catheterization echocardiogram is pending. Cont DAPT with aspirin and ticagrelor, atorvastatin 80mg daily, metoprolol tartrate 12.5mg PO bID. Cardiology following. (2) Bradycardia: Plan: Transient third degree heart block related to ischemia. Currently in NSR after catheterization. Cont monitoring on telemetry. (3) Infiltrate of both lungs present on imaging study: Plan: patient does report a cough for two weeks and some chills with a generalized unwell feeling prior to arrival. Although this may just be an atypical presentation of pulmonary edema, she is not fluid overloaded and with symptoms, will start Rocephin/azithromycin. Blood cultures were drawn in the ER and are pending. (4) Abdominal pain: Plan: chronic, nonspecific. Consider CT scan in 48 hours with contrast as she had contrast administered today with heart cathterization. Reports this has been ongoing and managed by her PCP. Will review outpatient records and continue supportive care efforts. (5) Irritable bowel syndrome: Plan: Chronic, stable. Cont Levsin and Bentyl PRN and daily Linzess per home regimen. (6) Osteoporosis: Plan: chronic, stable. Cont prolia per home regimen. (7) Anxiety: Plan: chronic, stable. Managed by Dr. Majano (psychiatry). Cont Buspar, ativan, seroquel and Belsomra per home regimen. (8) Vitamin D insufficiency: Plan: cont home supplementation weekly (9) DMII (diabetes mellitus, type 2): Plan: chronic, stable. Repeat A1C pending. Hold glipizide while inpatient. Cont with insulin coverage while inpatient. (10) Hypothyroidism: Plan: chronic, stable. Repeat TSH pending. Cont [place] Thyroid 60mg daily per home regimen. (11) Adrenal nodule: Plan: per outpatient PCP. DVT prophy-received heparin in cath, start Lovenox tonight Full Code Dispo-cont ICU monitoring for now. I spent a total of 75minutes coordinating, documenting, and providing care for this patient excluding time spent in the performance of separately billed services Judith [facility] and Anticipated Discharge Date Admission Date: July 28, 2023 History of Present Illness Chief Complaint: chest pain Primary Care Provider: Paco Luis DO 57-year-old female smoker presented to the ER with chest pain and abdominal pain followed by syncopal event. Per ER notes she called her in the evening stating she was not feeling well the patient climbed a flight of stairs and then clutched her chest stating she felt as though she was having a heart attack. She had a syncopal event after that with the ambulance crew present when she awoke. Pain was nonradiating. On arrival to the ER she was in no significant distress. A chest x-ray revealed cardiomegaly with lower lung zone predominant mixed interstitial and alveolar opacities suspicious for nonspecific pneumonitis. Chest CTA revealed mild bilateral multifocal ground glass and consolidative densities suggestive of pneumonia along with a left adrenal nodularity. EKG revealed sinus bradycardia with first-degree AV block and T wave inversions with ST depressions in V1 V2. Telemetry reflected third degree heart block. She was given aspirin 324 nitroglycerin followed by Zosyn and fentanyl for pain. Nitroglycerin 1 inch paste was applied and a heart alert was called for STEMI. Cardiac catheterization revealed proximal RCA occlusion with successful PCI to the RCA with implantation of a drug-eluting stent. No significant coronary disease was found elsewhere. Dual antiplatelet therapy with aspirin and Brilinta 90 mg p.o. twice daily was recommended including guideline directed medical therapy for secondary prevention of coronary disease to include high intensity statin therapy, beta-rose plus or minus TAMI inhibitor/ARB. Smoking cessation strongly recommended. She was admitted to the ICU postcardiac catheterization. ROS reveals a chronic abdominal pain that starts in RUQ and moves down into her pelvis. She reports ongoing diarrhea and takes IBS medications. She reports having this medication since April around her trip to [facility]. She doesn't take anything for pain at home per her report. Allergies Allergy/AdvReac Type Severity Reaction Status Date / Time egg Allergy Unknown HIVES, Verified 09/05/20 10:21 FACIAL SWELLING codeine AdvReac Unknown ABDOMINAL Verified 09/05/20 10:21 PAIN-IBS morphine AdvReac Unknown ABDOMINAL Verified 09/05/20 10:21 PAIN-IBS Opioids - Morphine Analogues AdvReac Unknown Nausea Verified 07/28/23 06:39 Home Medications Medication Instructions Recorded Confirmed Type dicyclomine 20 mg tablet 20 mg PO QID PRN IBS 10/03/18 07/28/23 History hyoscyamine sulfate 0.125 mg 0.125 mg sublingual QID PRN 10/03/18 07/28/23 History sublingual tablet Abdominal Pain lorazepam 0.5 mg tablet 0.5 mg PO TID anxiety 09/05/20 07/28/23 History suvorexant 20 mg tablet (Belsomra) 20 mg PO HS PRN Sleep 09/05/20 07/28/23 History buspirone 15 mg tablet 22.5 mg PO QID 07/28/23 07/28/23 History cholecalciferol (vitamin D3) 1,250 50,000 unit PO FR@0900 07/28/23 07/28/23 History mcg (50,000 unit) capsule denosumab 60 mg/mL subcutaneous See Rx Instructions .Route .COMPLEX 07/28/23 07/28/23 History syringe (Prolia) glipizide 5 mg tablet, extended 5 mg PO DAILY 07/28/23 07/28/23 History release 24 hr omeprazole 40 mg capsule,delayed 40 mg PO DAILY 07/28/23 07/28/23 History release progesterone micronized 200 mg 400 mg PO HS 07/28/23 07/28/23 History capsule thyroid (pork) 60 mg tablet 60 mg PO DAILY 07/28/23 07/28/23 History ([place] Thyroid) Past Med/Surg History Medical History (Updated 07/28/23 @ 10:06 by Judith Wilson DO) Anxiety Osteoporosis Vitamin D insufficiency Social History Smoking Status: Current every day smoker Tobacco Type: Cigarettes Hx Alcohol Use: No Hx Substance Use: No Preferred Language: Bulgarian Communication Ability: Effective Cost Recorder Required: No Beliefs That Will Affect Care: None Current Living Situation: Spouse Feels Safe at Home: Yes Physical Exam Physical Exam: CONSTITUTIONAL: WNWD, vitals as above, generally well-appearing, NAD EYES: normal conjunctivae, no scleral icterus ENT: external ear and nose normal, MMM NECK: trachea midline, RESPIRATORY: clear to auscultation bilaterally, no crackles, rales or wheezes, normal respiratory effort CARDIOVASCULAR: regular rate and rhythm, S1 and 2 heard without murmurs, gallops or rubs, no JVD, no peripheral edema CHEST: inspection of chest was normal GASTROINTESTINAL: normal bowel sounds, soft, TTP in right abdominal, ND, neck supple, normal palpation of chest wall without tenderness SKIN: warm and dry NEUROLOGIC: CN 2-12 grossly intact, no sensory deficit, normal cognition, normal speech, no tremor PSYCHIATRIC: alert cooperative and oriented to person, place and time. Results & Data Results & Data Vital Signs (Past 12 Hours) Vital Signs Temp Pulse Pulse Resp BP BP Pulse Ox 07/28/23 08:00 07/28/23 08:00 96 H 07/28/23 08:00 36.8 C 74 20 101/65 97 07/28/23 07:15 82 20 138/80 99 07/28/23 07:00 36.8 C 92 H 20 111/86 100 07/28/23 07:15 101 H 17 98 07/28/23 07:10 111/86 07/28/23 07:10 96 H 37 H 98 07/28/23 07:00 96 H 15 96 07/28/23 06:56 101 H 15 07/28/23 06:55 125/74 07/28/23 05:35 103 H 26 H 95 07/28/23 05:35 153/85 H 07/28/23 05:30 29 H 100 07/28/23 05:30 139/92 07/28/23 05:25 102 H 42 H 07/28/23 05:25 139/95 07/28/23 05:20 150/97 H 07/28/23 05:20 94 H 25 H 100 07/28/23 05:15 98 H 27 H 100 07/28/23 05:15 149/88 H 07/28/23 05:10 95 H 31 H 98 07/28/23 05:10 128/93 07/28/23 05:05 95 H 43 H 100 07/28/23 05:05 140/89 07/28/23 05:01 88 34 H 100 07/28/23 05:01 149/69 H 07/28/23 05:00 71 21 07/28/23 04:55 138/67 07/28/23 04:55 57 L 26 H 99 07/28/23 04:50 52 L 29 H 07/28/23 04:50 130/70 07/28/23 04:45 52 L 21 97 07/28/23 04:45 135/68 07/28/23 04:40 73 28 H 97 07/28/23 04:40 121/61 07/28/23 05:52 96 H 20 153/85 H 100 07/28/23 05:18 97 H 07/28/23 04:28 44 L 07/28/23 04:35 50 L 22 111/63 96 07/28/23 04:28 49 L 19 118/61 94 07/28/23 04:24 79 20 91/49 L 94 07/28/23 04:22 36 L 19 92 07/28/23 04:34 07/28/23 04:01 72 28 H 146/92 H 100 O2 Del Method O2 Flow Rate 07/28/23 08:00 Nasal Cannula 07/28/23 08:00 07/28/23 08:00 Nasal Cannula 2 07/28/23 07:15 Nasal Cannula 2 07/28/23 07:00 Nasal Cannula 2 07/28/23 07:15 07/28/23 07:10 07/28/23 07:10 07/28/23 07:00 07/28/23 06:56 07/28/23 06:55 07/28/23 05:35 07/28/23 05:35 07/28/23 05:30 07/28/23 05:30 07/28/23 05:25 07/28/23 05:25 07/28/23 05:20 07/28/23 05:20 07/28/23 05:15 07/28/23 05:15 07/28/23 05:10 07/28/23 05:10 07/28/23 05:05 07/28/23 05:05 07/28/23 05:01 07/28/23 05:01 07/28/23 05:00 07/28/23 04:55 07/28/23 04:55 07/28/23 04:50 07/28/23 04:50 07/28/23 04:45 07/28/23 04:45 07/28/23 04:40 07/28/23 04:40 07/28/23 05:52 Non-rebreather 10 07/28/23 05:18 07/28/23 04:28 07/28/23 04:35 07/28/23 04:28 07/28/23 04:24 07/28/23 04:22 07/28/23 04:34 Non-rebreather 15 07/28/23 04:01 Non-rebreather 15 Laboratory Results Short CBC 07/28/23 07/28/23 Range/Units 04:06 07:04 WBC 10.77 10.06 (4.8-10.8) K/ul Hgb 14.5 14.7 (12.0-16.0) g/dl Hct 42.5 43.7 (37.0-47.0) % Plt Count 314 265 (130-400) K/uL BMP 07/28/23 04:06 Sodium 136 Potassium 3.8 Chloride 108 H Carbon Dioxide 21 BUN 21 Creatinine 0.84 Glucose 139 H Calcium 9.3 Liver Function 07/28/23 Range/Units 04:06 Total Bilirubin 0.3 (0.2-1.0) mg/dl AST 13 (13-39) U/L ALT 11 (7-52) U/L Alkaline Phosphatase 67 (34-104) U/L Albumin 4.1 (3.4-5.0) gm/dl Diagnostic Findings Chest X-Ray 07/28/23 03:55 XR chest 1V portable HISTORY: 57 years-old Female Chest pain, nonspecific COMPARISON: CTA chest of same day TECHNIQUE: AP view of the chest FINDINGS: Cardiac silhouette is enlarged. Atherosclerosis of the aorta. No pneumothorax or pleural effusion. Mixed interstitial and alveolar opacities are most pronounced in the lower lung zones. Bones appear grossly intact. IMPRESSION: Cardiomegaly with lower lung zone predominant mixed interstitial and alveolar opacities suspicious for a nonspecific pneumonitis. ACT 112: Negative or not required by law. The above report was generated using voice recognition software. It may contain grammatical, syntax or spelling errors. Electronically signed by: Jose Stahl M.D. 07/28/2023 7:03 AM Chest CTA 07/28/23 04:00 Exam(s): CTA CHEST W/WO Contrast IV Amt: 118 ml opti 350 EXAM: CT Angiography Chest Without and With Intravenous Contrast CLINICAL HISTORY: Reason for exam: chest abd pain, collapse, 3rd degree HB. TECHNIQUE: Axial computed tomographic angiography images of the chest without and with intravenous contrast. CTDI is 22.86 mGy and DLP is 681.06 mGy-cm. Automated exposure control was utilized for the study. A dose lowering technique was utilized adhering to the principles of ALARA. MIP reconstructed images were created and reviewed. CONTRAST: Patient received 118 ml opti 350 of IV contrast COMPARISON: No relevant prior studies available. FINDINGS: Pulmonary arteries: Unremarkable. No acute pulmonary embolism. Aorta: No acute findings. No thoracic aortic aneurysm. Lungs: Patchy multifocal groundglass and consolidative densities are seen scattered in the lungs, more so involving the lower lobes. 7.9 mm nodule seen in the lingula on image 24, series 2. Pleural space: Unremarkable. No significant effusion. No pneumothorax. Heart: There is mild left ventriculomegaly. No significant pericardial effusion. No evidence of RV dysfunction. Bones/joints: No acute fracture. No dislocation. Soft tissues: Unremarkable. Lymph nodes: Unremarkable. No enlarged lymph nodes. Gallbladder and bile ducts: Cholecystectomy. Adrenals: Nodularity seen in the left adrenal gland, measuring up to 2. 1 cm in diameter. IMPRESSION: 1. Bilateral multifocal groundglass and consolidative densities are suggestive of pneumonia 2. Left adrenal nodularity Electronically signed by: Geoff George MD 07/28/23 05:46 AM Abdomen/Pelvis CT 07/28/23 06:29 CT abdomen pelvis wo/w con CT DOSE: 2415.85 mGy.cm CLINICAL HISTORY: acute abdominal pain post cardiac cath TECHNIQUE: Multiaxial CT images of the abdomen and pelvis were performed both before and after the intravenous administration of 94 cc of Optiray 320. Sagittal and coronal reformations were performed at the workstation by the radiologist. A dose lowering technique was utilized adhering to the principles of ALARA. COMPARISON STUDY: Abdomen and pelvis CT 06/15/2018. Chest CTA 07/28/2023. FINDINGS: Patchy and linear bilateral lower lobe densities are better appreciated on the same day chest CT. This may represent atelectasis or pneumonia. No pneumoperitoneum. No pneumatosis. L2 vertebroplasty is noted. Old mild superior endplate compression deformities at L4 and L5. Old mild inferior endplate compression deformities at T8 and T10. Residual contrast within the urinary system from the recent cardiac catheterization. Noncontrast imaging through the abdominal aorta demonstrates moderate calcified plaque. No evidence for an intramural hematoma. The abdominal aorta is normal in course and caliber. The iliac and femoral vessels are also normal in course and caliber with no evidence for dissection, stenosis, or occlusion. No retroperitoneal hematoma. Trace hemorrhage anterior to the common femoral vessels best seen on image 297. No active arterial extravasation identified to suggest a pseudoaneurysm. This is consistent with the access point for the cardiac catheterization. There is an overlying pressure dressing identified. Cholecystectomy. The main portal vein is patent. The liver, spleen, and pancreas are unremarkable. Subcentimeter hypodense lesions within the left kidney are technically too small to characterize but favor cysts. The right kidney enhances normally. No hydronephrosis. Bilateral low-density adrenal gland nodules remain stable. These favor benign adenomas. No retroperitoneal or pelvic lymphadenopathy. No pelvic free fluid. No bowel wall thickening or obstruction. The uterus and bilateral a dnexa are unremarkable. No bowel wall thickening or obstruction. IMPRESSION: 1. Trace hemorrhage anterior to the common femoral vessels consistent with expected postcatheterization changes. No active arterial extravasation or pseudoaneurysm identified. No retroperitoneal hematoma. 2. No bowel wall thickening or obstruction. 3. Normal caliber abdominal aorta. No evidence for a dissection. 4. Patchy and linear bibasilar densities. This may represent atelectasis or a pneumonitis. 5. Stable low-density bilateral adrenal gland nodules. These favor benign adenomas. 6. Additional findings as described above. ACT 112: Negative or not required by law. Electronically signed by: Stephan Callejas M.D. 07/28/2023 7:10 AM Medications Administered Current Inpatient Medications Acetaminophen (Acetaminophen 325 Mg Tab) 650 mg PO Q4H PRN PRN Reason: MILD Pain (Scale 1,2,3) Stop: 08/27/23 06:28 Aspirin (A[facility]in 81 Mg Ectab) [facility] Stop: 08/27/23 08:59 Last Admin: 07/28/23 09:44 Dose: 81 mg Atorvastatin Calcium (Atorvastatin 40 Mg Tab) 80 mg PO QAM [facility] Stop: 08/27/23 08:59 Buspirone HCl (Buspirone 7.5 Mg Tab) 22.5 mg PO QID [facility] Stop: 08/27/23 12:59 Dicyclomine HCl (Dicyclomine Hcl 20 Mg Tab) 20 mg PO QID PRN PRN Reason: IBS Stop: 08/27/23 08:43 Ergocalciferol (Ergocalciferol 50,000 Units 1250 Mcg Cap) 50,000 units PO Fr@0900 [facility] Stop: 08/29/23 08:59 Hyoscyamine (Hyoscyamine Sulfate 0.125 Mg Tab) 0.125 mg PO QID PRN PRN Reason: Abdominal Pain Stop: 08/27/23 08:51 Sodium Chloride (Nss 1000ml) 1,000 mls @ 75 mls/hr IV .[id number] [facility] Stop: 08/27/23 18:30 Last Admin: 07/28/23 07:26 Dose: 75 mls/hr Lorazepam (Lorazepam 0.5 Mg Tab) 0.5 mg PO TID [facility] Stop: 08/27/23 08:59 Last Admin: 07/28/23 09:45 Dose: 0.5 mg Metoprolol Tartrate (Metoprolol Tartrate 25 Mg Tab) 12.5 mg PO BID [facility] Stop: 08/27/23 08:59 Last Admin: 07/28/23 09:45 Dose: 12.5 mg Miscellaneous (*Belsomra*Order Awaiting Action) 1 each N/A QS [facility] Stop: 08/27/23 09:59 Pantoprazole Sodium (Pantoprazole 40 Mg Tab) 40 mg PO DAILY [facility]; Protocol Stop: 08/28/23 08:59 Thyroid ([place] Thyroid 30 Mg Tab) 60 mg PO DAILY [facility] Stop: 08/28/23 08:59 Ticagrelor (Ticagrelor 90 Mg Tab) 90 mg PO BID [facility] Stop: 08/27/23 20:59
--- NOTE | 2023-07-28 08:37 | Cardiology Consultation ---
Date of Consultation July 28, 2023 Assessment & Plan (1) Acute myocardial infarction involving right coronary artery: (2) Bradycardia: (3) Dyslipidemia: (4) Abdominal pain: (5) Infiltrate of both lungs present on imaging study: (6) Adrenal nodule: (1) Acute myocardial infarction involving right coronary artery: -Culprit ostial right coronary artery stenosis for which patient underwent PCI, drug-eluting stent in an emergent fashion. Continue dual antiplatelet therapy with aspirin (lifelong therapy), and Brilinta for at least 1 year. High-grade AV block noted on presentation likely due to RCA territory ischemia and has since resolved. Proceed with cautious metoprolol tartrate 12.5 mg twice daily Statin therapy as noted below (2) Bradycardia- Transient high-grade AV block due to RCA territory ischemia with resultant syncope: -Repeat EKG on arrival to the intensive care unit at the time my assessment, 07/28/2023 at 8:34 AM reveals sinus rhythm at 74 bpm, OK interval in the 160s, compared to the previous, the previously noted inferior ST segment elevation has resolved. (3) Dyslipidemia: -LDL 167 mg/dL. Recommend initiation of high intensity statin, atorvastatin 80 mg daily Patient with history of egg allergy. This comes up as a component of atorvastatin and a warning in [employer]. This is not a typical contraindication to atorvastatin in my experience. I called pharmacy and reviewed it and we are going to perform more research prior to administering the atorvastatin. (4) Abdominal pain: -Question if some of her abdominal pain may have been an anginal equivalent over the last 2 months. - pt was to follow up with a colonoscopy after return from her recent trip to [facility]. (5) Infiltrate of both lungs present on imaging study: -possible atypical pulmonary edema. No clinical pneumonia. -known smoker , smoking cessation recommended (6) Adrenal nodule: -incidental 2.1 cm pulmonary nodule -follow up as out pt. History of Present Illness Attending Physician: Seth Latham MD, PhD History of Present Illness Greg Phillip is [id number] female seen in cardiology consultation per the request of Dr Nazario for the evaluation of an inferior wall ST segment elevation myocardial infarction. The patient describes abdominal discomfort. She had been visiting family increase for just over 2 months this summer, and had worsening abdominal discomfort while there. This has been previously attributed to irritable bowel disease. Yesterday, she describes that she was in her normal state of health. She went to bed and her was sleeping in the basement because it was cooler there. She woke up from sleep in the wiener packer hours this morning with feeling severely ill including left sided chest discomfort, severe shortness of breath, and generalized illness feeling. She utilized her cell phone to call him for help. He reportedly assisted her and she had a witnessed syncopal event. The next thing she knew she woke up in the ambulance. She presented to the emergency department and on arrival was noted to have intermittent third-degree heart block. Telemetry at 4:38 AM reveals third- degree atrioventricular block with ventricular rate at 34 bpm. Her initial EKG did not reveal significant ST segment elevation. A CT angiogram was performed revealing no pulmonary embolism, no thoracic aortic aneurysm. A 2.1 cm left adrenal gland nodule was noted incidentally. After the CT scan, a repeat EKG was performed revealing inferior ST segment elevation with reciprocal changes. The cardiac catheterization laboratory was activated per the "heart alert "protocol. Emergent coronary angiography was performed by Dr. Latham of interventional cardiology with findings of a culprit 100% ostial right coronary artery stenosis for which patient underwent successful PCI and placement of a drug-eluting stent with excellent angiographic results. No significant obstructive disease noted elsewhere per my preliminary review of the films. The procedure was performed via the right femoral artery. And post procedure the patient complained of vague abdominal discomfort and therefore noncontrast CT of the abdomen pelvis was performed to exclude retroperitoneal hemorrhage which revealed expected postprocedural findings, with no acute retroperitoneal hemorrhage noted. At the time my assessment in ICU room 111. Patient feeling well. Vital signs stable. Atrial ventricular block is resolved. Past Medical History Anxiety Irritable bowel disease Recently diagnosed type 2 diabetes mellitus Cigarette smoker Social History smoker Originally from [facility] Allergies Allergy/AdvReac Type Severity Reaction Status Date / Time egg Allergy Unknown HIVES, Verified 09/05/20 10:21 FACIAL SWELLING codeine AdvReac Unknown ABDOMINAL Verified 09/05/20 10:21 PAIN-IBS morphine AdvReac Unknown ABDOMINAL Verified 09/05/20 10:21 PAIN-IBS Opioids - Morphine Analogues AdvReac Unknown Nausea Verified 07/28/23 06:39 Home Medications Medication Instructions Recorded Confirmed Type dicyclomine 20 mg tablet 20 mg PO QID PRN IBS 10/03/18 09/05/20 History hyoscyamine sulfate 0.125 mg 0.125 mg sublingual QID PRN 10/03/18 09/05/20 History sublingual tablet Abdominal Pain quetiapine 400 mg tablet 400 mg PO HS 10/03/18 09/05/20 History acetaminophen 500 mg tablet 1,000 mg PO Q6H PRN Pain 09/05/20 09/05/20 History (Tylenol Extra Strength) buspirone 15 mg tablet 15 mg PO QID 09/05/20 09/05/20 History lorazepam 0.5 mg tablet 0.5 mg PO TID anxiety 09/05/20 09/05/20 History suvorexant 20 mg tablet (Belsomra) 20 mg PO HS PRN Sleep 09/05/20 09/05/20 History Patient History Medical History (Updated 07/28/23 @ 08:51 by Seth Oliver DO) Anxiety Osteoporosis Vitamin D insufficiency Social History Smoking Status: Current every day smoker Tobacco Type: Cigarettes Hx Alcohol Use: No Hx Substance Use: No Preferred Language: Setswana Communication Ability: Effective Electrical Systems Designer Required: No Beliefs That Will Affect Care: None Current Living Situation: Spouse Feels Safe at Home: Yes Safety Concerns: Feels Safe At This Time Review of Systems Review of Systems: All systems reviewed & are unremarkable except as noted in HPI & below Physical Exam Physical Exam: Temp Pulse Resp BP Pulse Ox O2 Del Method O2 Flow Rate 36.8 C 74 20 101/65 97 Nasal Cannula 2 07/28/23 08:00 07/28/23 08:00 07/28/23 08:00 07/28/23 08:00 07/28/23 08:00 07/28/23 08:00 07/28/23 08:00 Constitutional: WD/WN, vitals as above Eyes: PERRL, conjunctivae normal, anicteric sclerae Respiratory: normal respiratory effort, lungs clear to auscultation Cardiovascular: RRR, no murmur, no edema Vessels: no JVD Right femoral artery access site clean dry and intact, no hematoma Gastrointestinal (Abdomen): normal bowel sounds, soft, nontender, no hepatosplenomegaly Neurologic: PERRL, EOMI, accommodation nl, no face palsy, no dysarthria Results & Data Laboratory Results Cardiac Enzymes 07/28/23 Range/Units 04:06 AST 13 (13-39) U/L Troponin I High Sens 14.2 H (0-14) pg/ml Coagulation 07/28/23 Range/Units 04:06 PT 10.5 (9.0-12.0) Seconds APTT 24.1 (21.0-31.0) Seconds Lipids 07/28/23 Range/Units 07:04 Triglycerides 114 (0-150) mg/dl Cholesterol 222 H (0-200) mg/dl HDL Cholesterol 32 mg/dl Cholesterol/HDL Ratio 6.9 H (0-5) LDL cholesterol : 167 mg/dl CBC 07/28/23 07/28/23 Range/Units 04:06 07:04 WBC 10.77 10.06 (4.8-10.8) K/ul RBC 5.08 5.17 (4.20-5.40) M/uL Hgb 14.5 14.7 (12.0-16.0) g/dl Hct 42.5 43.7 (37.0-47.0) % Plt Count 314 265 (130-400) K/uL Neut # (Auto) 5.02 7.91 H (1.40-6.50) K/uL Lymph # (Auto) 4.90 H 1.76 (1.20-3.40) K/uL Trigg # (Auto) 0.61 H 0.28 (0.11-0.59) K/uL Eos # (Auto) 0.16 0.04 (0.00-0.50) K/uL Baso # (Auto) 0.04 0.03 (0.00-0.20) K/uL Comprehensive Metabolic Panel 07/28/23 Range/Units 04:06 Sodium 136 (136-145) mmol/L Potassium 3.8 (3.5-5.1) mmol/L Chloride 108 H (98-107) mmol/L Carbon Dioxide 21 (21-32) mmol/L BUN 21 (6-23) mg/dl Creatinine 0.84 (0.6-1.2) mg/dl Glucose 139 H (70-99(Fasting)) mg/dl Calcium 9.3 (8.6-10.3) mg/dl AST 13 (13-39) U/L ALT 11 (7-52) U/L Alkaline Phosphatase 67 (34-104) U/L Total Protein 7.0 (6.0-8.3) gm/dl Albumin 4.1 (3.4-5.0) gm/dl Intake and Output 07/27/23 07/28/23 07/28/23 22:59 06:59 14:59 Output Total 925 / 925 Balance -925 / -925 Output: Urine 925 / 925 Other: Weight 62.7 kg 62.7 kg Weight Measurement Method Built in [facility] Built in [facility] Patient Weight 07/29/23 06:59 Weight 62.7 kg
[2023-07-28] MEDS ORDERED: busPIRone 15 MG TAB PO SCH (09:00)
[2023-07-28] MEDS ORDERED: METOPROLOL TARTRATE 25 MG TAB PO SCH (09:00)
[2023-07-28] MEDS: ASPIRIN 81 MG ECTAB PO SCH (09:44)
[2023-07-28] MEDS: METOPROLOL TARTRATE 25 MG TAB PO SCH ×2 (09:45→21:41)
[2023-07-28] MEDS: LORazepam 0.5 MG TAB PO SCH ×3 (09:45→21:39)
[2023-07-28 10:08] LABS: Estimated Average Glucose 128 mg/dl; Hemoglobin A1C 6.1 % (4.5-5.6)
[2023-07-28] MEDS ORDERED: GLUCOSE 40% GEL 15 GM TUBE PO PRN (10:10)
[2023-07-28] MEDS ORDERED: CARBOHYDRATES FOR HYPOGLYCEMIA PO PRN (10:10)
[2023-07-28] MEDS ORDERED: GLUCOSE 10 TAB/TUBE PO PRN (10:10)
[2023-07-28] MEDS ORDERED: GLUCAGON FOR INJ 1 MG VIAL SQ PRN (10:10)
[2023-07-28] MEDS ORDERED: DEXTROSE 50% 50 ML SYRINGE IV PRN (10:10)
[2023-07-28] MEDS ORDERED: POTASSIUM CHLORIDE CRTAB 20 MEQ TABCR PO ONE (10:45)
[2023-07-28] MEDS: cefTRIAXone SODIUM 1,000 MG in DEXTROSE 5% 50 ML IV SCH (10:58)
[2023-07-28] MEDS: ATORVASTATIN 40 MG TAB PO SCH (10:58)
[2023-07-28] MEDS: AZITHROMYCIN 250 MG TAB PO SCH (11:13)
[2023-07-28] MEDS: INSULIN ASPART PER UNIT CHARGE SC SCH ×3 (11:34→21:27)
[2023-07-28] MEDS: DICYCLOMINE HCL 20 MG TAB PO PRN ×2 (13:42→19:42)
[2023-07-28] MEDS: busPIRone 7.5 MG TAB PO SCH ×3 (13:42→21:41)
[2023-07-28] MEDS: ACETAMINOPHEN 325 MG TAB PO PRN ×2 (15:25→19:42)
[2023-07-28] MEDS ORDERED: oxyCODONE HCL IR 5 MG TAB (IMMEDIATE RELEASE) PO STA (16:13)
--- NOTE | 2023-07-28 17:12 | Electrocardiogram Report ---
Test Reason : Blood Pressure : / mmHG Vent. Rate : 071 BPM Atrial Rate : 071 BPM P-R Int : 252 ms QRS Dur : 092 ms QT Int : 412 ms P-R-T Axes : 052 030 095 degrees QTc Int : 447 ms Age and gender specific ECG analysis Sinus rhythm with sinus arrhythmia with 1st degree A-V block Low voltage QRS ST elevation consider inferior injury or acute infarct ACUTE OH / STEMI Consider right ventricular involvement in acute inferior infarct Abnormal ECG When compared with ECG of 03-OCT-2018 12:37, Significant changes have occurred Confirmed by Bernardo Jacobson ([id number]) on 07/28/2023 5:12:40 PM Referred By: REFERRED SELF Confirmed By:Ghassan Jacobson
--- NOTE | 2023-07-28 17:12 | Electrocardiogram Report ---
Test Reason : Blood Pressure : / mmHG Vent. Rate : 047 BPM Atrial Rate : 047 BPM P-R Int : 258 ms QRS Dur : 088 ms QT Int : 406 ms P-R-T Axes : 053 028 096 degrees QTc Int : 359 ms 2:[address] abnormality concerning for inferior injury Nonspecific ST and T wave abnormality Abnormal ECG When compared with ECG of 03-OCT-2018 12:37, Thee is now 2:1 heart block Vent. rate has decreased BY 57 BPM Borderline criteria for Anterior infarct are no longer Present ST now depressed in Lateral leads T wave inversion now evident in Lateral leads QT has shortened Confirmed by Bernardo Jacobson ([id number]) on 07/28/2023 5:12:24 PM Referred By: REFERRED SELF Confirmed By:Ghassan Jacobson
[2023-07-28] MEDS: oxyCODONE HCL IR 5 MG TAB (IMMEDIATE RELEASE) PO PRN ×2 (17:19→21:40)
[2023-07-28] MEDS: ENOXAPARIN INJ 40 MG/0.4 ML SYR SQ SCH (21:42)
[2023-07-28] MEDS: TICAGRELOR 90 MG TAB PO SCH (21:43)
[2023-07-28] MEDS ORDERED: LIDOCAINE 5% 1 PATCH TD STA (22:22)
[2023-07-28] MEDS: HYOSCYAMINE SULFATE 0.125 MG TAB PO PRN (22:40)
[2023-07-28] MEDS ORDERED: ACETAMINOPHEN 1000 MG/100 ML IV IV ONE (23:52)
[2023-07-29 05:03] LABS: Basophils # (auto) 0.04 K/uL (0.00-0.20); Basophils % (auto) 0.4 %; Eosinophils # (auto) 0.12 K/uL (0.00-0.50); Eosinophils % (auto) 1.1 %; Hematocrit (blood only) 35.5 % (37.0-47.0); Hemoglobin 12.2 g/dl (12.0-16.0); Immature Granulocytes # (auto) 0.02 K/uL (0.01-0.20); Immature Granulocytes % (auto) 0.2 %; Lymphocytes # (auto) 3.54 K/uL (1.20-3.40); Lymphocytes % (auto) 33.3 %; Mean Corpuscular Hemoglobin 28.8 pg (25.0-34.0); Mean Corpuscular Hgb Conc 34.4 g/dL (32.0-36.0); Mean Corpuscular Volume 83.7 fL (80.0-100.0); Mean Platelet Volume 9.7 fL (9.4-12.4); Monocytes # (auto) 0.85 K/uL (0.11-0.59); Neutrophils # (auto) 6.05 K/uL (1.40-6.50); Platelet Count 279 K/uL (130-400); RDW Coefficient of Variation 16.1 % (11.5-14.5); RDW Standard Deviation 49.1 fL (36.4-46.3); Red Blood Count 4.24 M/uL (4.20-5.40); White Blood Count 10.62 K/ul (4.8-10.8)
[2023-07-29] MEDS: busPIRone 7.5 MG TAB PO SCH ×4 (07:30→19:44)
[2023-07-29] MEDS: TICAGRELOR 90 MG TAB PO SCH ×2 (07:30→19:45)
[2023-07-29] MEDS: METOPROLOL TARTRATE 25 MG TAB PO SCH ×3 (07:30→19:45)
[2023-07-29 07:32] LABS: Basophils # (auto) 0.04 K/uL (0.00-0.20); Basophils % (auto) 0.4 %; Eosinophils # (auto) 0.13 K/uL (0.00-0.50); Eosinophils % (auto) 1.2 %; Hematocrit (blood only) 38.7 % (37.0-47.0); Immature Granulocytes # (auto) 0.03 K/uL (0.01-0.20); Immature Granulocytes % (auto) 0.3 %; Lymphocytes # (auto) 2.78 K/uL (1.20-3.40); Lymphocytes % (auto) 25.6 %; Mean Corpuscular Hemoglobin 28.3 pg (25.0-34.0); Mean Corpuscular Hgb Conc 33.6 g/dL (32.0-36.0); Mean Corpuscular Volume 84.1 fL (80.0-100.0); Mean Platelet Volume 9.7 fL (9.4-12.4); Monocytes % (auto) 8.3 %; Neutrophils # (auto) 6.98 K/uL (1.40-6.50); Neutrophils % (auto) 64.2 %; Platelet Count 275 K/uL (130-400); RDW Coefficient of Variation 15.9 % (11.5-14.5); RDW Standard Deviation 48.6 fL (36.4-46.3); White Blood Count 10.86 K/ul (4.8-10.8)
[2023-07-29] MEDS: AZITHROMYCIN 250 MG TAB PO SCH (07:32)
[2023-07-29] MEDS: ATORVASTATIN 40 MG TAB PO SCH (07:32)
[2023-07-29] MEDS: ARMOUR THYROID 30 MG TAB PO SCH (07:32)
[2023-07-29] MEDS: ASPIRIN 81 MG ECTAB PO SCH (07:33)
[2023-07-29] MEDS: ACETAMINOPHEN 325 MG TAB PO PRN ×3 (07:36→21:41)
[2023-07-29] MEDS: LORazepam 0.5 MG TAB PO SCH ×3 (07:37→19:44)
--- NOTE | 2023-07-29 07:37 | Critical Care Progress Note ---
Date of Service July 29, 2023 Assessment & Plan (1) Acute myocardial infarction involving right coronary artery: (2) Infiltrate of both lungs present on imaging study: Plan Impression: 57-year-old female admitted with acute coronary syndrome status post drug-eluting stent. She complains of chronic abdominal pain. She did have some basilar atelectatic changes in the bases. Recommendations: 1. Acute coronary syndrome: Status post drug-eluting stent. Chest pain-free. She is currently on Lipitor metoprolol Brilinta. Will uptitrate beta-rose. Cardiac rehab as an outpatient. 2. Pulmonary infiltrates: Patient has some basilar atelectatic changes. She has been started on antibiotics by the primary admitting service. She is afebrile and white blood cell count is normal. We will check procalcitonin. If this were negative, would favor rapid de-escalation and discontinue antibiotics within 72 hours. 3. Abdominal discomfort: CT of the abdomen demonstrated no significant pathology. Exam is not particularly concerning. She is on lidocaine. As oxycodone has been ineffective we will discontinue days. Will try oral Ultram. 4. History of tobacco abuse: Smoking cessation recommended. 5. Significant anxiety: Continue BuSpar and Ativan which has been effective in alleviating her symptoms in the past. Patient's critical care issues appear resolved. She can transfer out of the ICU. Critical care services will sign off. Additional management per the hospitalist service. Feel free to contact us with questions or concerns Admission and Anticipated Discharge Date Admission Date: July 28, 2023 Subjective Patient seen and examined. EMR reviewed. Discussed on multidisciplinary rounds on at bedside critical care nurse as well as overnight critical care JEANNINE. Patient is very anxious this morning. She reports this is her typical anxiety. She usually takes Ativan and BuSpar which she has not yet received this morning. These are highly effective in controlling her symptoms at baseline. She also continues to complain of right lower quadrant pain. Imaging studies and laboratory studies been unrevealing. This pain has been going on for quite some time. Initially responded favorably to a lidocaine patch but is worse this morning. Unclear how much may be related to anxiety. She reports an allergy to morphine. Oxycodone has not been effective. Fentanyl reportedly was more effective in controlling her pain. Review of Systems Review of Systems: All systems reviewed & are unremarkable except as noted in Subjective Physical Exam Constitutional: WD/WN, vitals as above Neck: trachea midline, no thyromegaly Respiratory: normal respiratory effort, lungs clear to auscultation Cardiovascular: RRR, no murmur, no edema Gastrointestinal (Abdomen): normal bowel sounds, soft, nontender, no hepatosplenomegaly Musculoskeletal: Extremities: extremities normal to inspection Skin: no rashes, warm and dry Neurologic: Nonfocal exam Lymphatic: no cervical lymphadenopathy Results & Data Results & Data Vital Signs (Past 12 Hours) Vital Signs Pulse Resp BP Pulse Ox O2 Del Method 07/29/23 06:00 61 26 H 96 07/29/23 06:00 150/73 H 07/29/23 05:00 67 18 96 07/29/23 05:00 134/83 07/29/23 04:00 73 17 96 07/29/23 04:00 133/79 07/29/23 03:00 61 21 95 07/29/23 03:00 118/77 07/29/23 02:00 75 29 H 98 07/29/23 01:00 59 L 26 H 96 07/29/23 01:00 138/85 07/29/23 00:00 64 25 H 94 07/29/23 00:00 134/76 07/28/23 23:01 62 20 92 07/28/23 23:01 143/79 H 07/28/23 23:00 62 21 93 07/28/23 22:05 69 21 07/28/23 21:00 72 37 H 94 07/28/23 21:00 154/86 H 07/28/23 20:30 64 29 H 95 07/28/23 20:00 67 29 H 97 07/28/23 20:00 137/90 07/28/23 19:30 67 26 H 95 07/28/23 20:00 Room Air Critical Care Results & Data Vital Signs (Past 12 Hours) Vital Signs Pulse Resp BP Pulse Ox O2 Del Method 07/29/23 06:00 61 26 H 96 07/29/23 06:00 150/73 H 07/29/23 05:00 67 18 96 07/29/23 05:00 134/83 07/29/23 04:00 73 17 96 07/29/23 04:00 133/79 07/29/23 03:00 61 21 95 07/29/23 03:00 118/77 07/29/23 02:00 75 29 H 98 07/29/23 01:00 59 L 26 H 96 07/29/23 01:00 138/85 07/29/23 00:00 64 25 H 94 07/29/23 00:00 134/76 07/28/23 23:01 62 20 92 07/28/23 23:01 143/79 H 07/28/23 23:00 62 21 93 07/28/23 22:05 69 21 07/28/23 21:00 72 37 H 94 07/28/23 21:00 154/86 H 07/28/23 20:30 64 29 H 95 07/28/23 20:00 67 29 H 97 07/28/23 20:00 137/90 07/28/23 20:00 Room Air Lab & Micro Results (Past 24 Hours) RBC 4.60 M/uL (4.20-5.40) 07/29/23 WBC 10.86 K/ul (4.8-10.8) H 07/29/23 Hgb 13.0 g/dl (12.0-16.0) 07/29/23 Hct 38.7 % (37.0-47.0) 07/29/23 MCV 84.1 fL (80.0-100.0) 07/29/23 MCH 28.3 pg (25.0-34.0) 07/29/23 MCHC 33.6 g/dL (32.0-36.0) 07/29/23 RDW Standard Deviation 48.6 fL (36.4-46.3) H 07/29/23 RDW Coefficient of Variation 15.9 % (11.5-14.5) H 07/29/23 Plt Count 275 K/uL (130-400) 07/29/23 MPV 9.7 fL (9.4-12.4) 07/29/23 Neutrophils (%) (Auto) 64.2 % 07/29/23 Lymphocytes (%) (Auto) 25.6 % 07/29/23 Monocytes # (Auto) 0.90 K/uL (0.11-0.59) H 07/29/23 Eosinophils # (Auto) 0.13 K/uL (0.00-0.50) 07/29/23 Immature Granulocyte % (Auto) 0.3 % 07/29/23 Neutrophils # (Auto) 6.98 K/uL (1.40-6.50) H 07/29/23 Lymphocytes # (Auto) 2.78 K/uL (1.20-3.40) 07/29/23 Monocytes # (Auto) 0.90 K/uL (0.11-0.59) H 07/29/23 Eosinophils # (Auto) 0.13 K/uL (0.00-0.50) 07/29/23 Basophils # (Auto) 0.04 K/uL (0.00-0.20) 07/29/23 Immature Granulocyte # (Auto) 0.03 K/uL (0.01-0.20) 3 No Data to Display No Data to Display Diagnostic Findings (Past 24 Hours) Echocardiogram from 07/28/2023 showed an EF of 55-60. No regional wall motion abnormalities. Grade 1 diastolic dysfunction. No significant valvular disease I & O Totals 24 Hours 07/28/23 07/29/23 07/30/23 06:59 06:59 06:59 Intake Total 1520 / 1520 Output Total 1825 / 1825 Balance -305 / -305 Cumulative 07/28/23 03:38 thru 07/29/23 06:00 Intake Total 1520 Output Total 1825 Balance -305 RT Ventilator Mngmt (Last Documented) Ventilator Ordered Settings Respiratory Rate 26 07/29/23 06:00 Ventilator - PT Measurements Respiratory Rate 26 Coding Level of Care Code 39251 SUB INP/OBS CARE 2/35MIN Diagnoses Acute myocardial infarction involving right coronary artery I21.11 Infiltrate of both lungs present on imaging study R91.8
[2023-07-29 07:47] LABS: Potassium 4.2 mmol/L (3.5-5.1)
[2023-07-29 07:48] LABS: Calcium 9.2 mg/dl (8.6-10.3); Creatinine Clr Calc Pharmacy 65.9 ml/min; Est GFR (African American) 85.7 ml/min; Est GFR (Non-African American) 73.9 ml/min
[2023-07-29] MEDS ORDERED: AZITHROMYCIN 250 MG TAB PO SCH (08:00)
[2023-07-29] MEDS: INSULIN ASPART PER UNIT CHARGE SC SCH ×4 (08:38→21:05)
[2023-07-29] MEDS ORDERED: PANTOprazole 40 MG TAB PO SCH (09:00)
--- NOTE | 2023-07-29 09:02 | Hospitalist Progress Note ---
Date of Service July 29, 2023 Assessment & Plan (1) Acute myocardial infarction involving right coronary artery: Plan: s/p TOMMIE to RCA occlusion with resolution of chest pain and symptoms. Cont DAPT with aspirin and ticagrelor, atorvastatin 80mg daily, metoprolol tartrate 12.5mg PO BID. Cardiology following. (2) Bradycardia: Plan: Transient third degree heart block related to ischemia. Currently in NSR after catheterization. Cont monitoring on telemetry. (3) Infiltrate of both lungs present on imaging study: Plan: patient does report a cough for two weeks and some chills with a generalized unwell feeling prior to arrival. Although this may just be an atypical presentation of pulmonary edema, she is not fluid overloaded and with symptoms, Rocephin/azithromycin started emmpirically. Blood cultures are preliminarily negative and she is not coughing today and not very perked up with abx. Procalcitonin is negative. Abx were stopped. Consider repeat CXR in 4 weeks to ensure resolution of infiltrates. (4) Abdominal pain: Plan: chronic, nonspecific. CT abd pelvis reveals trace hemorrhage anterior to the common femoral vessels consistent with expected postcatheterization changes. No active arterial extravasation or pseudoaneurysm identified. No retroperitoneal hematoma. No bowel wall thickening or obstruction. Normal caliber abdominal aorta. No evidence for a dissection. Patchy and linear bibasilar densities. This may represent atelectasis or a pneumonitis. Stable low-density bilateral adrenal gland nodules. These favor benign adenomas. GI was consulted for help with working up this pain. She has a long-standing h/o IBS and sees [facility] for this for many years. (5) Irritable bowel syndrome: Plan: Chronic, stable. Cont Levsin and Bentyl PRN and daily Linzess per home regimen. (6) Osteoporosis: Plan: chronic, stable. Cont prolia per home regimen. (7) Anxiety: Plan: chronic, stable. Managed by Dr. Majano (psychiatry). Cont Buspar, ativan, seroquel and Belsomra per home regimen. (8) Vitamin D insufficiency: Plan: cont home supplementation weekly (9) DMII (diabetes mellitus, type 2): Plan: chronic, stable. Repeat A1C reflects good control at 6.1. Hold glipizide while inpatient. Cont with insulin coverage while inpatient. (10) Hypothyroidism: Plan: chronic, stable. Repeat TSH reflects good control. Cont [place] Thyroid 60mg daily per home regimen. (11) Adrenal nodule: Plan: per outpatient PCP. DVT prophy-Lovenox Full Code Dispo-sent from ICU to PCU I spent a total of 60minutes coordinating, documenting, and providing care for this patient excluding time spent in the performance of separately billed services Judith Wilson DO [facility] Hospitalist Admission and Anticipated Discharge Date Admission Date: July 28, 2023 Subjective 57-year-old female admitted with acute RCA occlusion status post drug-eluting stent placed 07/28. Today she reports pain in her right groin that developed overnight. She was given Tylenol this morning which helped her pain. Tramadol also offered as an option. Patient reports allergy to oxycodone which she received yesterday. She reports this made her sick after 3 doses. She still feels rundown. Chronic abdominal pain in her right upper quadrant still present. GI consulted for assistance with work-up of this. Patient has been constipated since admission. Reports not having had her Linzess that she typically takes at home. This was ordered. No BM reported. WE also spent time discussing why her progesterone was held and the possibility of experiencing withdrawal symptoms. Physical Exam Physical Exam: CONSTITUTIONAL: WNWD, vitals as above, generally appears fatigued, NAD EYES: normal conjunctivae, no scleral icterus ENT: external ear and nose normal, MMM NECK: trachea midline, RESPIRATORY: clear to auscultation bilaterally, no crackles, rales or wheezes, normal respiratory effort CARDIOVASCULAR: regular rate and rhythm, S1 and 2 heard without murmurs, gallops or rubs, no JVD, no peripheral edema CHEST: inspection of chest was normal GASTROINTESTINAL: normal bowel sounds, soft, TTP in right abdominal, ND, neck supple, normal palpation of chest wall without tenderness, no guarding. SKIN: warm and dry, no ecchymosis or swelling of femoral site on right NEUROLOGIC: CN 2-12 grossly intact, no sensory deficit, normal cognition, normal speech, no tremor PSYCHIATRIC: alert cooperative and oriented to person, place and time. Results & Data Results & Data Vital Signs (Past 12 Hours) Vital Signs Temp Pulse Resp BP Pulse Ox O2 Del Method 07/29/23 08:00 60 22 93 Room Air 09/07/23 07:00 75 21 97 07/29/23 07:00 129/79 07/29/23 08:30 36.8 C 07/29/23 06:00 61 26 H 96 07/29/23 06:00 150/73 H 07/29/23 05:00 67 18 96 07/29/23 05:00 134/83 07/29/23 04:00 73 17 96 07/29/23 04:00 133/79 07/29/23 03:00 61 21 95 07/29/23 03:00 118/77 07/29/23 02:00 75 29 H 98 07/29/23 01:00 59 L 26 H 96 07/29/23 01:00 138/85 07/29/23 00:00 64 25 H 94 07/29/23 00:00 134/76 07/28/23 23:01 62 20 92 07/28/23 23:01 143/79 H 07/28/23 23:00 62 21 93 07/28/23 22:05 69 21 Laboratory Results Short CBC 07/29/23 07/29/23 Range/Units 04:27 07:06 WBC 10.62 10.86 H (4.8-10.8) K/ul Hgb 12.2 13.0 (12.0-16.0) g/dl Hct 35.5 L 38.7 (37.0-47.0) % Plt Count 279 275 (130-400) K/uL BMP 07/29/23 07:06 Sodium 139 Potassium 4.2 Chloride 112 H Carbon Dioxide 22 BUN 12 Creatinine 0.86 Glucose 121 H Calcium 9.2 Medications Administered Current Inpatient Medications Acetaminophen (Acetaminophen 325 Mg Tab) 650 mg PO Q4H PRN PRN Reason: MILD Pain (Scale 1,2,3) Stop: 08/27/23 06:28 Last Admin: 07/29/23 07:36 Dose: 650 mg Aspirin (Aspirin 81 Mg Ectab) 81 mg PO [facility] Stop: 08/27/23 08:59 Last Admin: 07/29/23 07:33 Dose: 81 mg Atorvastatin Calcium (Atorvastatin 40 Mg Tab) [facility] Stop: 08/27/23 08:59 Last Admin: 07/29/23 07:32 Dose: 80 mg Azithromycin (Azithromycin 250 Mg Tab) 250 mg PO Q24H [facility]; Protocol Stop: 08/05/23 07:59 Last Admin: 07/29/23 08:39 Dose: Not Given Buspirone HCl (Buspirone 7.5 Mg Tab) 22.5 mg PO QID STEPHAN Stop: 08/27/23 12:59 Last Admin: 07/29/23 07:30 Dose: 22.5 mg Dextrose (Dextrose 50% 50 Ml Syringe) 25 - 50 ml IV UD PRN; Protocol PRN Reason: Hypoglycemia Protocol Stop: 08/27/23 10:09 Dicyclomine HCl (Dicyclomine Hcl 20 Mg Tab) 20 mg PO QID PRN PRN Reason: IBS Stop: 08/27/23 08:43 Last Admin: 07/28/23 19:42 Dose: 20 mg Enoxaparin Sodium (Enoxaparin Inj 40 Mg/0.4 Ml Syr) 40 mg SQ HS [facility] Stop: 08/27/23 20:59 Last Admin: 07/28/23 21:42 Dose: 40 mg Ergocalciferol (Ergocalciferol 50,000 Units 1250 Mcg Cap) 50,000 units PO Fr@0900 [facility] Stop: 08/29/23 08:59 Glucagon (Glucagon For Inj 1 Mg Vial) 1 mg SQ UD PRN; Protocol PRN Reason: Hypoglycemia Protocol Stop: 08/27/23 10:09 Glucose (Glucose 40% Gel 15 Gm Tube) 15 - 30 gm PO UD PRN; Protocol PRN Reason: Hypoglycemia Protocol Stop: 08/27/23 10:09 Glucose (Glucose 10 Tab/Tube) 4 - 8 tab PO UD PRN; Protocol PRN Reason: Hypoglycemia Treatment Stop: 08/27/23 10:09 Hyoscyamine (Hyoscyamine Sulfate 0.125 Mg Tab) 0.125 mg PO QID PRN PRN Reason: Abdominal Pain Stop: 08/27/23 08:51 Last Admin: 07/28/23 22:40 Dose: 0.125 mg Ceftriaxone Sodium 1,000 mg/ (Dextrose) 60 mls @ 100 mls/hr IV Q24H [facility]; Protocol Stop: 08/04/23 10:59 Last Infusion: 07/28/23 11:35 Dose: Infused Acetaminophen (Ofirmev) 1,000 mg in 100 mls @ 400 mls/hr IV NOW ONE Stop: 07/30/23 00:14 Last Infusion: 07/29/23 00:09 Dose: Infused Insulin Aspart (Insulin Aspart Per Unit Charge) 0 units SC ACHS STEPHAN Stop: 08/27/23 11:29 Last Admin: 07/29/23 08:38 Dose: Not Given Lorazepam (Lorazepam 0.5 Mg Tab) 0.5 mg PO TID STEPHAN Stop: 08/27/23 08:59 Last Admin: 07/29/23 07:37 Dose: 0.5 mg Metoprolol Tartrate (Metoprolol Tartrate 25 Mg Tab) 25 mg PO BID STEPHAN Stop: 08/28/23 08:59 Last Admin: 07/29/23 08:39 Dose: 12.5 mg Miscellaneous (*Belsomra*Order Awaiting Action) 1 each N/A QS [facility] Stop: 08/27/23 09:59 Last Admin: 07/29/23 07:39 Dose: Not Given Miscellaneous (Carbohydrates For Hypoglycemia ) 15 - 30 gm PO UD PRN PRN Reason: Hypoglycemia Protocol Stop: 08/27/23 10:09 Miscellaneous (Remove Lidoderm Patch) 1 each N/A TODAY@1022 ONE Stop: 07/29/23 10:23 Pantoprazole Sodium (Pantoprazole 40 Mg Tab) 40 mg PO DAILY [facility]; Protocol Stop: 08/28/23 08:59 Last Admin: 07/29/23 07:33 Dose: 40 mg Thyroid ([place] Thyroid 30 Mg Tab) 60 mg PO DAILY [facility] Stop: 08/28/23 08:59 Last Admin: 07/29/23 07:32 Dose: 60 mg Ticagrelor (Ticagrelor 90 Mg Tab) 90 mg PO BID [facility] Stop: 08/27/23 20:59 Last Admin: 07/29/23 07:30 Dose: 90 mg Tramadol HCl (Tramadol Hcl 50 Mg Tablet) 50 mg PO Q4H PRN PRN Reason: Pain Stop: 08/28/23 07:33
--- NOTE | 2023-07-29 11:24 | Gastrointestinal Consultation ---
Date of Consultation July 29, 2023 Assessment & Plan (1) Acute myocardial infarction involving right coronary artery: (2) Irritable bowel syndrome: (3) Abdominal pain: Patient is a 57 years old female currently admitted for acute MT involving the RCA status post TOMMIE and currently on dual antiplatelet therapy. She has history of IBS, constipation, GERD, gastritis, duodenitis and H. pylori infections. Does have chronic right-sided abdominal pain which seems to be somewhat worse recently while she was vacationing in [facility] associated with nausea. Usually when she uses antiacids, and antispasmodics they help. She is worried about intra-abdominal masses however his CT abdomen pelvis with and without contrast done yesterday showed no signs of this, also no signs of inflammation or obstructive processes. She is s/p cholecystectomy and appendectomy - Increase Protonix to 40mg BID; trial addition of Carafate 1g BID - Restart Linzess 290mcg daily - Dicyclomine alternating w Hyoscyamine prn cramping/pain - Diet as tolerated - KUB to eval stool burden - Check stool Hpylori (noted stomach bx in 2020 and 2018 negative for Hpylori) - Would defer non urgent endoscopic evaluation at this time given her recent MT ; may arrange this in OP setting once cleared by Cardiology - GI to sign off; pls recall PRN Supervising Physician Co-Signing Physician Notes 57 y/o F admitted for acute MT s/p TOMMIE now on DAPT. GI consulted for chronic abdominal pain. Has had multiple EGDs in the past most recently in 2018 and 2020 with gastritis and duodenitis, negative for H. pylori. At this time would not recommend EGD for abdominal pain given recent MT. Can use PPI 40 mg BID. Check an H. pylori stool antigen and treat if positive. She already follows with [facility] for chronic abdominal pain, IBS, and constipation so she can follow back upon discharge and she already has an appointment scheduled. GI will sign off but please call back with questions. Connie Gonzalez, DO Gastroenterology and Hepatology History of Present Illness Reason for Consultation: R sided abdominal pain Requesting Physician: Dr. Seth Latham Attending Physician: Dr. Connie Gonzalez History of Present Illness Patient is a 57 years old female who is admitted with acute MT status post drug-eluting stent placement on the RCA yesterday currently on aspirin and Brilinta dual antiplatelet therapy. We are consulted to evaluate her for right- sided abdominal pain symptoms. Patient with history of IBS, constipation, history of H. pylori infections. She is also status post cholecystectomy and appendectomy. She has been established in our [facility] clinic for many years, most recently seen by JENNIFER Diaz in January and has a follow-up in a few days time. She has been taking Linzess 290 mcg for her IBS and constipation symptoms and this has been working well for her. Usually she has bowel movements every day but stools may alternate between loose or small sized. Denies any rectal bleeding. She also takes dicyclomine and Levsin alternatingly for abdominal pain symptoms which usually helps. She was vacationing in [place] for 2 weeks recently and has nausea, right upper quadrant abdominal pain which prompted her to get an evaluation over there. She had an ultrasound report which her brought in however the report is in [place] language. She was however informed that the physicians there recommended that she had EGD and colonoscopy evaluation as soon as she returns to the [place]. Currently she is complaining of right-sided abdominal pain with nausea and also bloating. Feels that she has "something growing" on R side of abdomen since it appears more distended in that area. Her CT abd/pelvis w wo contrast showed no obvious intra-abdominal masses, inflammatory or obstructive processes. She is currently using Lidoderm patch on the right upper quadrant of the abdomen, also trying dicyclomine and hyoscyamine, on Protonix. So far the medication regimen has been somewhat helpful but not completely taking away her pain. Her last EGD and colonoscopy was done in 2020 which showed signs of gastritis, duodenitis, diverticulosis, hemorrhoids. H. pylori testing via biopsy in 2020 and 2018 were negative. No signs of celiac dz as well. Allergies Allergy/AdvReac Type Severity Reaction Status Date / Time egg Allergy Unknown HIVES, Verified 09/05/20 10:21 FACIAL SWELLING codeine AdvReac Unknown ABDOMINAL Verified 09/05/20 10:21 PAIN-IBS morphine AdvReac Unknown ABDOMINAL Verified 09/05/20 10:21 PAIN-IBS Opioids - Morphine Analogues AdvReac Unknown Nausea Verified 07/28/23 06:39 Home Medications Medication Instructions Recorded Confirmed Type dicyclomine 20 mg tablet 20 mg PO QID PRN IBS 10/03/18 07/28/23 History hyoscyamine sulfate 0.125 mg 0.125 mg sublingual QID PRN 10/03/18 07/28/23 History sublingual tablet Abdominal Pain lorazepam 0.5 mg tablet 0.5 mg PO TID anxiety 09/05/20 07/28/23 History suvorexant 20 mg tablet (Belsomra) 20 mg PO HS PRN Sleep 09/05/20 07/28/23 History buspirone 15 mg tablet 22.5 mg PO QID 07/28/23 07/28/23 History cholecalciferol (vitamin D3) 1,250 50,000 unit PO FR@0900 07/28/23 07/28/23 History mcg (50,000 unit) capsule denosumab 60 mg/mL subcutaneous See Rx Instructions .Route .COMPLEX 07/28/23 07/28/23 History syringe (Prolia) glipizide 5 mg tablet, extended 5 mg PO DAILY 07/28/23 07/28/23 History release 24 hr omeprazole 40 mg capsule,delayed 40 mg PO DAILY 07/28/23 07/28/23 History release progesterone micronized 200 mg 400 mg PO HS 07/28/23 07/28/23 History capsule thyroid (pork) 60 mg tablet 60 mg PO DAILY 07/28/23 07/28/23 History ([place] Thyroid) Patient History Medical History (Updated 07/28/23 @ 10:06 by Judith Wilson DO) Anxiety Osteoporosis Vitamin D insufficiency Social History Smoking Status: Current every day smoker Tobacco Type: Cigarettes Hx Alcohol Use: No Hx Substance Use: No Preferred Language: [place]ambian Communication Ability: Effective Wildlife Technician Required: No Beliefs That Will Affect Care: None Current Living Situation: Spouse Feels Safe at Home: Yes Assistive Devices: None Review of Systems Review of Systems: All systems reviewed & are unremarkable except as noted in HPI & below Physical Exam Constitutional: WD/WN, vitals as above well groomed, cooperative and co mfortable Eyes: PERRL, conjunctivae normal, anicteric sclerae ENMT: external ear and nose normal, oropharynx normal Respiratory: normal respiratory effort, lungs clear to auscultation Cardiovascular: RRR, no murmur, no edema Gastrointestinal (Abdomen): TTP along R side of abd, soft, BS hypoactive Skin: no rashes, warm and dry no jaundice Psychiatric: A+Ox3, euthymic affect Lymphatic: no lymphedema Results & Data Vital Signs (Past 12 Hours) Vital Signs Temp Pulse Resp BP Pulse Ox O2 Del Method 07/29/23 08:00 60 22 93 Room Air 07/29/23 07:00 75 21 97 07/29/23 07:00 129/79 07/29/23 08:30 36.8 C 07/29/23 06:00 61 26 H 96 07/29/23 06:00 150/73 H 07/29/23 05:00 67 18 96 07/29/23 05:00 134/83 07/29/23 04:00 73 17 96 07/29/23 04:00 133/79 07/29/23 03:00 61 21 95 07/29/23 03:00 118/77 07/29/23 02:00 75 29 H 98 07/29/23 01:00 59 L 26 H 96 07/29/23 01:00 138/85 07/29/23 00:00 64 25 H 94 07/29/23 00:00 134/76
--- NOTE | 2023-07-29 11:58 | XRay Report ---
KUB HISTORY: Acute onset abdominal pain eval stool burden, R sided abd pain COMPARISON: CT 07/28/2023 FINDINGS: Nonobstructive bowel gas pattern. Moderate colonic fecal retention. Cholecystectomy. No re nal calculi. No ureteral calculi. No pneumoperitoneum or pneumatosis. Chronic L2 compression deformit y with kyphoplasty. Lumbar levoscoliosis. No fracture. IMPRESSION: 1. Nonobstructive bowel gas pattern. 2. Moderate fecal retention. 3. Cholecystectomy. ACT 112: Negative or not required by law. The above report was generated using voice recognition software. It may contain grammatical, syntax o r spelling errors. Electronically signed by: Jose Stahl M.D. 07/29/2023 11:56 AM
[2023-07-29] MEDS: cefTRIAXone SODIUM 1,000 MG in DEXTROSE 5% 50 ML IV SCH (12:07)
[2023-07-29] MEDS: traMADol HCL 50 MG TABLET PO PRN ×2 (12:19→19:48)
--- NOTE | 2023-07-29 13:58 | Cardiology Progress Note ---
Date of Service July 29, 2023 Assessment & Plan (1) Acute myocardial infarction involving right coronary artery: (2) Bradycardia: (3) Dyslipidemia: (4) Abdominal pain: (5) Infiltrate of both lungs present on imaging study: (6) Adrenal nodule: Plan: (1) Acute myocardial infarction involving right coronary artery: -Culprit ostial right coronary artery stenosis for which patient underwent PCI, drug-eluting stent in an emergent fashion. -Although troponin peaked at 19,231 pg/ml, it has trended down and she has no angina, and no regional wall motions were noted on post PCI echocardiogram. -Continue dual antiplatelet therapy with aspirin (lifelong therapy), and Brilinta for at least 1 year. High-grade AV block noted on presentation likely due to RCA territory ischemia and has since resolved. Continue cautious metoprolol tartrate 12.5 mg twice daily Statin therapy as noted below (2) Bradycardia- Transient high-grade AV block due to RCA territory ischemia with resultant syncope: -High-grade AV block resolved post PCI. (3) Dyslipidemia: -LDL 167 mg/dL. Recommend initiation of high intensity statin, atorvastatin 80 mg daily (4) Abdominal pain: -GI input noted and appreciated. (5) Infiltrate of both lungs present on imaging study: -possible atypical pulmonary edema. No clinical pneumonia. -known smoker , smoking cessation recommended (6) Adrenal nodule: -incidental 2.1 cm pulmonary nodule -follow up as out pt with PCP. Plan for outpatient cardiac rehab. Stable for transfer to telemetry. Questions answered to pt / spouses satisfaction. Admission and Anticipated Discharge Date Admission Date: July 28, 2023 Subjective Patient seen in cardiology follow-up. IV fluids have been discontinued overnight. She was resting comfortably with the exception of pain at her right femoral artery access site consistent with femoral neuralgia. Telemetry revealed sinus rhythm in the 60s. Review of Systems Review of Systems: All systems reviewed & are unremarkable except as noted in HPI & below Physical Exam Constitutional: WD/WN, vitals as above Eyes: PERRL, conjunctivae normal, anicteric sclerae Respiratory: normal respiratory effort, lungs clear to auscultation Cardiovascular: RRR, no murmur, no edema Vessels: no JVD R femoral artery access site clean dry and intact, no hematoma of significance on exam. Gastrointestinal (Abdomen): normal bowel sounds, soft, nontender, no hepatosplenomegaly Neurologic: PERRL, EOMI, accommodation nl, no face palsy, no dysarthria Results & Data Vital Signs (Past 12 Hours) Vital Signs Temp Pulse Resp BP Pulse Ox O2 Del Method 07/29/23 08:00 60 22 93 Room Air 07/29/23 07:00 75 21 97 07/29/23 07:00 129/79 07/29/23 08:30 36.8 C 07/29/23 06:00 61 26 H 96 07/29/23 06:00 150/73 H 07/29/23 05:00 67 18 96 07/29/23 05:00 134/83 07/29/23 04:00 73 17 96 07/29/23 04:00 133/79 07/29/23 03:00 61 21 95 07/29/23 03:00 118/77 07/29/23 02:00 75 29 H 98 Laboratory Results Cardiac Enzymes 07/28/23 07/28/23 07/29/23 Range/Units 15:25 20:40 04:27 Troponin I High Sens 08915.8 H* D 61633.3 H* D 9026.1 H* D (0-14) pg/ml CBC 07/29/23 07/29/23 Range/Units 04:27 07:06 WBC 10.62 10.86 H (4.8-10.8) K/ul RBC 4.24 4.60 (4.20-5.40) M/uL Hgb 12.2 13.0 (12.0-16.0) g/dl Hct 35.5 L 38.7 (37.0-47.0) % Plt Count 279 275 (130-400) K/uL Neut # (Auto) 6.05 6.98 H (1.40-6.50) K/uL Lymph # (Auto) 3.54 H 2.78 (1.20-3.40) K/uL Mc[place]osh # (Auto) 0.85 H 0.90 H (0.11-0.59) K/uL Eos # (Auto) 0.12 0.13 (0.00-0.50) K/uL Baso # (Auto) 0.04 0.04 (0.00-0.20) K/uL Comprehensive Metabolic Panel 07/29/23 Range/Units 07:06 Sodium 139 (136-145) mmol/L Potassium 4.2 (3.5-5.1) mmol/L Chloride 112 H (98-107) mmol/L Carbon Dioxide 22 (21-32) mmol/L BUN 12 (6-23) mg/dl Creatinine 0.86 (0.6-1.2) mg/dl Glucose 121 H (70-99(Fasting)) mg/dl Calcium 9.2 (8.6-10.3) mg/dl Diagnostic Findings EKG performed today 07/29/2023 at 10:18 AM and interpret independently: Sinus bradycardia 57 bpm, evolution of inferior infarct pattern noted with resolution of the previously noted ST segment elevation, but there has been development of T wave inversions in leads III and aVF. The TX interval is normal at 154 ms. Transthoracic echocardiogram performed 07/28/2023 and interpret independently: Mild concentric left ventricular perjury, the left ventricular wall motion is no rmal, LVEF in the range of 55-60% (normal) grade 1 diastolic dysfunction, no significant valvular disease.
[2023-07-29] MEDS: LINACLOTIDE 145 MCG CAPSULE PO SCH (15:27)
--- NOTE | 2023-07-29 17:56 | Electrocardiogram Report ---
Test Reason : Blood Pressure : / mmHG Vent. Rate : 049 BPM Atrial Rate : 098 BPM P-R Int : 276 ms QRS Dur : 088 ms QT Int : 464 ms P-R-T Axes : 053 025 067 degrees QTc Int : 419 ms Sinus rhythm with 2nd degree A-V block with 2:1 A-V conduction Abnormal ECG When compared with ECG of 28-JUL-2023 03:57, QT has lengthened Confirmed by Bernardo Jacobson ([id number]) on 07/29/2023 5:55:52 PM Referred By: REFERRED SELF Confirmed By:Ghassan Jacobson
--- NOTE | 2023-07-29 17:57 | Electrocardiogram Report ---
Test Reason : Blood Pressure : / mmHG Vent. Rate : 093 BPM Atrial Rate : 093 BPM P-R Int : 266 ms QRS Dur : 092 ms QT Int : 368 ms P-R-T Axes : 038 016 117 degrees QTc Int : 457 ms Sinus rhythm with 1st degree A-V block with Premature atrial complexes with Aberrant conduction Inferior-posterior infarct , possibly acute ACUTE [place] / STEMI Consider right ventricular involvement in acute inferior infarct Abnormal ECG When compared with ECG of 28-JUL-2023 04:04, (unconfirmed) Aberrant conduction is now Present Sinus rhythm is no longer with 2nd degree A-V block Vent. rate has increased BY 44 BPM Confirmed by Bernardo Jacosbon ([id number]) on 07/29/2023 5:57:21 PM Referred By: REFERRED SELF Confirmed By:Ghassan Jacobson
--- NOTE | 2023-07-29 18:00 | Electrocardiogram Report ---
Test Reason : Blood Pressure : / mmHG Vent. Rate : 074 BPM Atrial Rate : 074 BPM P-R Int : 166 ms QRS Dur : 094 ms QT Int : 390 ms P-R-T Axes : 048 016 016 degrees QTc Int : 432 ms Sinus rhythm with marked sinus arrhythmia Low voltage QRS Left atrial enlargement Borderline ECG When compared with ECG of 28-JUL-2023 03:57, (unconfirmed) AL interval has decreased Vent. rate has increased BY [address] no longer depressed in Anterolateral leads Nonspecific T wave abnormality, worse in Inferior leads T wave inversion no longer evident in Anterolateral leads QT has lengthened Confirmed by Bernardo Jacobson ([id number]) on 07/29/2023 5:59:59 PM Referred By: REFERRED SELF Confirmed By:Ghassan Jacobson
--- NOTE | 2023-07-29 18:07 | Electrocardiogram Report ---
Test Reason : Blood Pressure : / mmHG Vent. Rate : 073 BPM Atrial Rate : 073 BPM P-R Int : 150 ms QRS Dur : 086 ms QT Int : 390 ms P-R-T Axes : 040 008 -06 degrees QTc Int : 429 ms Normal sinus rhythm possible Inferior infarct , age undetermined Abnormal ECG When compared with ECG of 28-JUL-2023 08:34, (unconfirmed) No significant change was found Confirmed by Bernardo Jacobson ([id number]) on 07/29/2023 6:06:45 PM Referred By: REFERRED SELF Confirmed By:Ghassan Jacobson
--- NOTE | 2023-07-29 18:59 | Electrocardiogram Report ---
Test Reason : Blood Pressure : / mmHG Vent. Rate : 057 BPM Atrial Rate : 057 BPM P-R Int : 154 ms QRS Dur : 092 ms QT Int : 480 ms P-R-T Axes : 022 004 -20 degrees QTc Int : 467 ms Sinus bradycardia Abnormal ECG When compared with ECG of 28-JUL-2023 13:44, (unconfirmed) No significant change was found Confirmed by Bernardo Jacobson ([id number]) on 07/29/2023 6:58:59 PM Referred By: REFERRED SELF Confirmed By:Ghassan Jacobson
[2023-07-29] MEDS: PANTOprazole 40 MG TAB PO SCH (19:44)
[2023-07-29] MEDS: SUCRALFATE 1 GM/10 ML UDC PO SCH (19:44)
[2023-07-29] MEDS: ENOXAPARIN INJ 40 MG/0.4 ML SYR SQ SCH (19:44)
[2023-07-29] MEDS: DICYCLOMINE HCL 20 MG TAB PO PRN (19:46)
[2023-07-29] MEDS: HYOSCYAMINE SULFATE 0.125 MG TAB PO PRN (19:47)
[2023-07-29] MEDS ORDERED: LIDOCAINE 5% 1 PATCH TD ONE (22:15)
[2023-07-30] MEDS ORDERED: ACETAMINOPHEN 1,000 MG/100 ML VIAL IV ONE
[2023-07-30] MEDS: traMADol HCL 50 MG TABLET PO PRN ×4 (01:34→19:24)
[2023-07-30 05:18] LABS: Basophils # (auto) 0.03 K/uL (0.00-0.20); Basophils % (auto) 0.3 %; Eosinophils # (auto) 0.14 K/uL (0.00-0.50); Eosinophils % (auto) 1.2 %; Hematocrit (blood only) 37.6 % (37.0-47.0); Hemoglobin 12.7 g/dl (12.0-16.0); Immature Granulocytes # (auto) 0.03 K/uL (0.01-0.20); Immature Granulocytes % (auto) 0.3 %; Lymphocytes # (auto) 3.15 K/uL (1.20-3.40); Lymphocytes % (auto) 26.8 %; Mean Corpuscular Hemoglobin 28.3 pg (25.0-34.0); Mean Corpuscular Hgb Conc 33.8 g/dL (32.0-36.0); Mean Corpuscular Volume 83.9 fL (80.0-100.0); Mean Platelet Volume 9.8 fL (9.4-12.4); Monocytes % (auto) 8.5 %; Neutrophils % (auto) 62.9 %; Platelet Count 273 K/uL (130-400); RDW Coefficient of Variation 15.5 % (11.5-14.5); RDW Standard Deviation 47.5 fL (36.4-46.3); Red Blood Count 4.48 M/uL (4.20-5.40); White Blood Count 11.75 K/ul (4.8-10.8)
[2023-07-30 05:22] LABS: BUN Creatinine Ratio 17.1 (10-20); Calcium 9.1 mg/dl (8.6-10.3); Creatinine Clr Calc Pharmacy 69.2 ml/min; Est GFR (African American) 90.8 ml/min; Est GFR (Non-African American) 78.3 ml/min; Potassium 4.3 mmol/L (3.5-5.1)
[2023-07-30] MEDS: INSULIN ASPART PER UNIT CHARGE SC SCH ×4 (07:51→20:29)
[2023-07-30] MEDS: ASPIRIN 81 MG ECTAB PO SCH (08:07)
[2023-07-30] MEDS: ATORVASTATIN 40 MG TAB PO SCH (08:07)
[2023-07-30] MEDS: busPIRone 7.5 MG TAB PO SCH ×4 (08:08→20:23)
[2023-07-30] MEDS: ERGOCALCIFEROL 50,000 UNITS 1250 MCG CAP PO SCH (08:09)
[2023-07-30] MEDS: LINACLOTIDE 145 MCG CAPSULE PO SCH (08:09)
[2023-07-30] MEDS: PANTOprazole 40 MG TAB PO SCH ×2 (08:10→20:22)
[2023-07-30] MEDS: ARMOUR THYROID 30 MG TAB PO SCH (08:11)
[2023-07-30] MEDS: SUCRALFATE 1 GM/10 ML UDC PO SCH ×2 (08:11→20:22)
[2023-07-30] MEDS: TICAGRELOR 90 MG TAB PO SCH ×2 (08:12→20:23)
[2023-07-30] MEDS: LORazepam 0.5 MG TAB PO SCH ×3 (08:13→20:21)
[2023-07-30] MEDS: DICYCLOMINE HCL 20 MG TAB PO PRN (08:27)
[2023-07-30] MEDS ORDERED: LINACLOTIDE 145 MCG CAPSULE PO SCH (09:00)
[2023-07-30] MEDS: METOPROLOL TARTRATE 25 MG TAB PO SCH (09:15)
[2023-07-30] MEDS: ACETAMINOPHEN 325 MG TAB PO PRN ×2 (09:18→13:31)
--- NOTE | 2023-07-30 11:05 | Cardiology Progress Note ---
Date of Service July 30, 2023 Assessment & Plan (1) Acute myocardial infarction involving right coronary artery: (2) Bradycardia: (3) Dyslipidemia: (4) Abdominal pain: (5) Adrenal nodule: Plan: (1) Acute myocardial infarction involving right coronary artery: -Culprit ostial right coronary artery stenosis for which patient underwent PCI, drug-eluting stent in an emergent fashion. -Although troponin peaked at 19,231 pg/ml, it has trended down and she has no angina, and no regional wall motions were noted on post PCI echocardiogram. -Continue dual antiplatelet therapy with aspirin (lifelong therapy), and Brilinta for at least 1 year. High-grade AV block noted on presentation likely due to RCA territory ischemia and has since resolved. Transition metoprolol to tartrate to metoprolol succinate 25 mg 1 time per day, hold for heart rate less than 50, systolic blood pressure less than 100 mm hg. 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 She does not have a significant hematoma on exam, or on noncontrast CT of the abdomen pelvis performed shortly after the procedure. Recommend increasing activity as tolerated. Patient believes the Lidoderm patches provided some relief. It is difficult to distinguish between her femoral arterial access site discomfort and her chronic abdominal discomfort. (2) Bradycardia- Transient high-grade AV block due to RCA territory ischemia with resultant syncope: -High-grade AV block resolved post PCI. (3) Dyslipidemia: -LDL 167 mg/dL. Recommend initiation of high intensity statin, atorvastatin 80 mg daily (4) Abdominal pain, with history of irritable bowel syndrome: -GI input noted and appreciated. Proton pump inhibitor, Carafate recommended as well as Linzess, and dicyclomine alternating with hyoscyamine PRN. (5) Infiltrate of both lungs present on imaging study: -possible atypical pulmonary edema. No clinical pneumonia. -known smoker , smoking cessation recommended (6) Adrenal nodule: -incidental 2.1 cm pulmonary nodule -follow up as out pt with PCP. Plan for outpatient cardiac rehab. Stable for transfer to telemetry. Questions answered to pt / spouses satisfaction. Patient stable for transfer to telemetry pending bed availability. From cardiac perspective she is stable for discharge. I will place a request for an outpatient cardiology follow-up appointment and cardiac rehabilitation referral. Admission and Anticipated Discharge Date Admission Date: July 28, 2023 Subjective Patient seen in cardiology follow-up. Her is at the bedside. Denies any chest discomfort. Had ongoing pain at her right femoral arterial procedure site that radiates into her right lower quadrant of her abdomen. Received multiple medications and ultimately a topical lidocaine patch overnight. She has not been sitting in the bedside chair. She states that she went for a brief walk and her leg did not hurt worse with walking. Telemetry reveals sinus bradycardia in the 50s. Her morning metoprolol tartrate dose was held for heart rate less than 60 bpm. Physical Exam Constitutional: WD/WN, vitals as above Eyes: PERRL, conjunctivae normal, anicteric sclerae Respiratory: normal respiratory effort, lungs clear to auscultation Cardiovascular: RRR, no murmur, no edema Vessels: no JVD Right femoral artery procedure site is clean dry and intact, no erythema. Gastrointestinal (Abdomen): normal bowel sounds, soft, nontender, no hepatosplenomegaly Neurologic: PERRL, EOMI, accommodation nl, no face palsy, no dysarthria Results & Data Vital Signs (Past 12 Hours) Vital Signs Temp Pulse Pulse Resp BP BP Pulse Ox 07/30/23 08:28 58 L 13 140/77 96 07/30/23 07:47 58 L 20 147/79 H 95 07/30/23 07:47 36.7 C 07/30/23 04:00 36.9 C 55 L 18 135/71 95 07/30/23 00:00 37 C 62 18 168/70 H 98 O2 Del Method 07/30/23 08:28 Room Air 07/30/23 07:47 Room Air 07/30/23 07:47 07/30/23 04:00 Room Air 07/30/23 00:00 Room Air
[2023-07-30] MEDS: METOPROLOL SUCC 25MG EXT REL TAB PO SCH (11:25)
--- NOTE | 2023-07-30 13:29 | Hospitalist Progress Note ---
Date of Service July 30, 2023 Assessment & Plan (1) Acute myocardial infarction involving right coronary artery: Plan: s/p TOMMIE to RCA occlusion with resolution of chest pain and symptoms. Cont DAPT with aspirin and ticagrelor, atorvastatin 80mg daily, metoprolol tartrate 12.5mg PO BID. Cardiology following. (2) Bradycardia: Plan: Transient third degree heart block related to ischemia. Currently in NSR after catheterization. Cont monitoring on telemetry. (3) Infiltrate of both lungs present on imaging study: Plan: patient does report a cough for two weeks and some chills with a generalized unwell feeling prior to arrival. Although this may just be an atypical presentation of pulmonary edema, she is not fluid overloaded and with symptoms, Rocephin/azithromycin started emmpirically. Blood cultures are preliminarily negative and she is not coughing today and not very perked up with abx. Procalcitonin is negative. Abx were stopped. Consider repeat CXR in 4 weeks to ensure resolution of infiltrates. (4) Abdominal pain: Plan: chronic, nonspecific. CT abd pelvis reveals trace hemorrhage anterior to the common femoral vessels consistent with expected postcatheterization changes. No active arterial extravasation or pseudoaneurysm identified. No retroperitoneal hematoma. No bowel wall thickening or obstruction. Normal caliber abdominal aorta. No evidence for a dissection. Patchy and linear bibasilar densities. This may represent atelectasis or a pneumonitis. Stable low-density bilateral adrenal gland nodules. These favor benign adenomas. GI was consulted for help with working up this pain. She has a long-standing h/o IBS and sees [facility] for this for many years. Add gabapentin to se if this helps the femoral neuralgia post procedure. (5) Irritable bowel syndrome: Plan: Chronic, stable. Cont Levsin and Bentyl PRN and daily Linzess per home regimen. (6) Osteoporosis: Plan: chronic, stable. Cont prolia per home regimen. (7) Anxiety: Plan: chronic, stable. Managed by Dr. Majano (psychiatry). Cont Buspar, ativan, seroquel and Belsomra per home regimen. (8) Vitamin D insufficiency: Plan: cont home supplementation weekly (9) DMII (diabetes mellitus, type 2): Plan: chronic, stable. Repeat A1C reflects good control at 6.1. Hold glipizide while inpatient. Cont with insulin coverage while inpatient. (10) Hypothyroidism: Plan: chronic, stable. Repeat TSH reflects good control. Cont [place] Thyroid 60mg daily per home regimen. (11) Adrenal nodule: Plan: per outpatient PCP. DVT prophy-Lovenox Full Code Dispo-sent from ICU to PCU I spent a total of 60minutes coordinating, documenting, and providing care for this patient excluding time spent in the performance of separately billed services DO Lori Gordon Hospitalist Admission and Anticipated Discharge Date Admission Date: July 28, 2023 Subjective 57-year-old female admitted with acute RCA occlusion status post drug-eluting stent placed 07/28. deniees chest pain staritng to feel better but there is still pain in her Right groin she reports severe pain that was uncontrolled overnight Physical Exam Physical Exam: CONSTITUTIONAL: WNWD, vitals as above, generally appears fatigued, NAD EYES: normal conjunctivae, no scleral icterus ENT: external ear and nose normal, MMM NECK: trachea midline, RESPIRATORY: clear to auscultation bilaterally, no crackles, rales or wheezes, normal respiratory effort CARDIOVASCULAR: regular rate and rhythm, S1 and 2 heard without murmurs, gallops or rubs, no JVD, no peripheral edema CHEST: inspection of chest was normal GASTROINTESTINAL: normal bowel sounds, soft, TTP in right abdominal, ND, neck supple, normal palpation of chest wall without tenderness, no guarding. SKIN: warm and dry, no ecchymosis or swelling of femoral site on right NEUROLOGIC: CN 2-12 grossly intact, no sensory deficit, normal cognition, normal speech, no tremor PSYCHIATRIC: alert cooperative and oriented to person, place and time. Results & Data Results & Data Vital Signs (Past 12 Hours) Vital Signs Temp Pulse Pulse Resp BP BP Pulse Ox 07/30/23 11:30 36.7 C 61 20 140/80 96 07/30/23 08:28 58 L 13 140/77 96 07/30/23 07:47 58 L 20 147/79 H 95 07/30/23 07:47 36.7 C 07/30/23 04:00 36.9 C 55 L 18 135/71 95 O2 Del Method 07/30/23 11:30 Room Air 07/30/23 08:28 Room Air 07/30/23 07:47 Room Air 07/30/23 07:47 07/30/23 04:00 Room Air Laboratory Results Short CBC 07/30/23 Range/Units 04:48 WBC 11.75 H (4.8-10.8) K/ul Hgb 12.7 (12.0-16.0) g/dl Hct 37.6 (37.0-47.0) % Plt Count 273 (130-400) K/uL BMP 07/30/23 04:48 Sodium 139 Potassium 4.3 Chloride 110 H Carbon Dioxide 23 BUN 14 Creatinine 0.82 Glucose 116 H Calcium 9.1 Medications Administered Current Inpatient Medications Acetaminophen (Acetaminophen 325 Mg Tab) 650 mg PO Q4H PRN PRN Reason: MILD Pain (Scale 1,2,3) Stop: 08/27/23 06:28 Last Admin: 07/30/23 09:18 Dose: 650 mg Aspirin (Aspirin 81 Mg Ectab) [facility] Stop: 08/27/23 08:59 Last Admin: 07/30/23 08:07 Dose: 81 mg Atorvastatin Calcium (Atorvastatin 40 Mg Tab) 80 mg PO [facility] Stop: 08/27/23 08:59 Last Admin: 07/30/23 08:07 Dose: 80 mg Buspirone HCl (Buspirone 7.5 Mg Tab) 22.5 mg PO QID [facility] Stop: 08/27/23 12:59 Last Admin: 07/30/23 13:00 Dose: 22.5 mg Dextrose (Dextrose 50% 50 Ml Syringe) 25 - 50 ml IV UD PRN; Protocol PRN Reason: Hypoglycemia Protocol Stop: 08/27/23 10:09 Dicyclomine HCl (Dicyclomine Hcl 20 Mg Tab) 20 mg PO QID PRN PRN Reason: IBS Stop: 08/27/23 08:43 Last Admin: 07/30/23 08:27 Dose: 20 mg Enoxaparin Sodium (Enoxaparin Inj 40 Mg/0.4 Ml Syr) 40 mg SQ HS [facility] Stop: 08/27/23 20:59 Last Admin: 07/29/23 19:44 Dose: 40 mg Ergocalciferol (Ergocalciferol 50,000 Units 1250 Mcg Cap) 50,000 units PO Fr@0900 [facility] Stop: 08/29/23 08:59 Last Admin: 07/30/23 08:09 Dose: 50,000 units Gabapentin (Gabapentin 300 Mg Cap) 300 mg PO BID [facility] Stop: 08/29/23 13:29 Glucagon (Glucagon For Inj 1 Mg Vial) 1 mg SQ UD PRN; Protocol PRN Reason: Hypoglycemia Protocol Stop: 08/27/23 10:09 Glucose (Glucose 40% Gel 15 Gm Tube) 15 - 30 gm PO UD PRN; Protocol PRN Reason: Hypoglycemia Protocol Stop: 08/27/23 10:09 Glucose (Glucose 10 Tab/Tube) 4 - 8 tab PO UD PRN; Protocol PRN Reason: Hypoglycemia Treatment Stop: 08/27/23 10:09 Hydromorphone HCl (Hydromorphone Inj 0.5 Mg/0.5 Ml Syr) 0.5 mg IV Q4H PRN PRN Reason: severe pain Stop: 08/13/23 13:25 Hyoscyamine (Hyoscyamine Sulfate 0.125 Mg Tab) 0.125 mg PO QID PRN PRN Reason: Abdominal Pain Stop: 08/27/23 08:51 Last Admin: 07/29/23 19:47 Dose: 0.125 mg Insulin Aspart (Insulin Aspart Per Unit Charge) 0 units SC ACHS [facility] Stop: 08/27/23 11:29 Last Admin: 07/30/23 11:58 Dose: Not Given Lidocaine (Lidocaine 5% 1 Patch) 1 patch TD HS [facility] Stop: 08/29/23 20:59 Linaclotide (Linaclotide 145 Mcg Capsule) 290 mcg PO DAILY [facility] Stop: 08/28/23 14:09 Last Admin: 07/30/23 08:09 Dose: 290 mcg Lorazepam (Lorazepam 0.5 Mg Tab) 0.5 mg PO TID [facility] Stop: 08/27/23 08:59 Last Admin: 07/30/23 08:13 Dose: 0.5 mg Metoprolol Succinate (Metoprolol Succ 25mg Ext Rel Tab) 25 mg PO QAM [facility] Stop: 08/29/23 11:14 Last Admin: 07/30/23 11:25 Dose: 25 mg Miscellaneous (*Belsomra*Order Awaiting Action) 1 each N/A QS [facility] Stop: 08/27/23 09:59 Last Admin: 07/30/23 07:52 Dose: Not Given Miscellaneous (Carbohydrates For Hypoglycemia ) 15 - 30 gm PO UD PRN PRN Reason: Hypoglycemia Protocol Stop: 08/27/23 10:09 Miscellaneous (Remove Lidoderm Patch) 1 each N/A DAILY@0900 [facility] Stop: 08/29/23 08:59 Last Admin: 07/30/23 08:10 Dose: 1 each Pantoprazole Sodium (Pantoprazole 40 Mg Tab) 40 mg PO BID [facility]; Protocol Stop: 08/28/23 20:59 Last Admin: 07/30/23 08:10 Dose: 40 mg Quetiapine Fumarate (Quetiapine Fumarate 300 Mg Tablet) 300 mg PO HS [facility] Stop: 08/29/23 20:59 Sucralfate (Sucralfate 1 Gm/10 Ml Udc) 1 gm PO BID [facility] Stop: 08/28/23 20:59 Last Admin: 07/30/23 08:11 Dose: 1 gm Thyroid ([place] Thyroid 30 Mg Tab) 60 mg PO DAILY [facility] Stop: 08/28/23 08:59 Last Admin: 07/30/23 08:11 Dose: 60 mg Ticagrelor (Ticagrelor 90 Mg Tab) 90 mg PO BID [facility] Stop: 08/27/23 20:59 Last Admin: 07/30/23 08:12 Dose: 90 mg Tramadol HCl (Tramadol Hcl 50 Mg Tablet) 50 mg PO Q4H PRN PRN Reason: Pain Stop: 08/28/23 07:33 Last Admin: 07/30/23 13:01 Dose: 50 mg
[2023-07-30] MEDS: GABAPENTIN 300 MG CAP PO SCH ×2 (14:12→20:23)
[2023-07-30] MEDS: LIDOCAINE 5% 1 PATCH TD SCH (20:22)
[2023-07-30] MEDS: QUEtiapine FUMARATE 300 MG TABLET PO SCH (20:23)
[2023-07-30] MEDS: SUVOREXANT 20 MG PO PRN (20:24)
[2023-07-30] MEDS: ENOXAPARIN INJ 40 MG/0.4 ML SYR SQ SCH (20:25)
[2023-07-31 05:17] LABS: Hematocrit (blood only) 38.1 % (37.0-47.0); Hemoglobin 12.8 g/dl (12.0-16.0); Mean Corpuscular Hemoglobin 28.1 pg (25.0-34.0); Mean Corpuscular Hgb Conc 33.6 g/dL (32.0-36.0); Mean Corpuscular Volume 83.7 fL (80.0-100.0); Mean Platelet Volume 9.7 fL (9.4-12.4); Platelet Count 260 K/uL (130-400); RDW Coefficient of Variation 15.6 % (11.5-14.5); RDW Standard Deviation 47.5 fL (36.4-46.3); Red Blood Count 4.55 M/uL (4.20-5.40); White Blood Count 9.55 K/ul (4.8-10.8)
[2023-07-31] MEDS: traMADol HCL 50 MG TABLET PO PRN ×4 (05:23→20:38)
[2023-07-31 05:30] LABS: BUN Creatinine Ratio 22.8 (10-20); Calcium 9.3 mg/dl (8.6-10.3); Creatinine Clr Calc Pharmacy 71.8 ml/min; Est GFR (Non-African American) 81.9 ml/min; Magnesium 2.2 mg/dl (1.7-2.4); Phosphorus 4.2 mg/dl (2.5-4.9); Potassium 3.7 mmol/L (3.5-5.1)
[2023-07-31] MEDS: ACETAMINOPHEN 325 MG TAB PO PRN ×2 (07:26→15:26)
[2023-07-31] MEDS: GABAPENTIN 300 MG CAP PO SCH ×2 (07:30→20:39)
[2023-07-31] MEDS: INSULIN ASPART PER UNIT CHARGE SC SCH ×4 (07:32→20:36)
[2023-07-31] MEDS: ASPIRIN 81 MG ECTAB PO SCH (08:15)
[2023-07-31] MEDS: busPIRone 7.5 MG TAB PO SCH ×4 (08:16→20:38)
[2023-07-31] MEDS: ATORVASTATIN 40 MG TAB PO SCH (08:16)
[2023-07-31] MEDS: METOPROLOL SUCC 25MG EXT REL TAB PO SCH (08:17)
[2023-07-31] MEDS: LORazepam 0.5 MG TAB PO SCH ×3 (08:17→20:37)
[2023-07-31] MEDS: PANTOprazole 40 MG TAB PO SCH ×2 (08:17→20:37)
[2023-07-31] MEDS: LINACLOTIDE 145 MCG CAPSULE PO SCH (08:17)
[2023-07-31] MEDS: ARMOUR THYROID 30 MG TAB PO SCH (08:18)
[2023-07-31] MEDS: TICAGRELOR 90 MG TAB PO SCH ×2 (08:18→20:37)
[2023-07-31] MEDS: SUCRALFATE 1 GM/10 ML UDC PO SCH ×2 (08:18→20:37)
--- NOTE | 2023-07-31 09:45 | Hospitalist Progress Note ---
Date of Service July 31, 2023 Assessment & Plan (1) Acute myocardial infarction involving right coronary artery: Plan: s/p TOMMIE to RCA occlusion with resolution of chest pain and symptoms. Cont DAPT with aspirin and ticagrelor, atorvastatin 80mg daily, metoprolol tartrate 12.5mg PO BID. Cardiology following. (2) Bradycardia: Plan: Transient third degree heart block related to ischemia. Currently in NSR after catheterization. Cont monitoring on telemetry. (3) Infiltrate of both lungs present on imaging study: Plan: patient does report a cough for two weeks and some chills with a generalized unwell feeling prior to arrival. Although this may just be an atypical presentation of pulmonary edema, she is not fluid overloaded and with symptoms, Rocephin/azithromycin started empirically. Blood cultures are preliminarily negative and she is not coughing, Procalcitonin is negative. Abx were stopped. Consider repeat CXR in 4 weeks to ensure resolution of infiltrates. (4) Abdominal pain: Plan: chronic, nonspecific. CT abd pelvis reveals trace hemorrhage anterior to the common femoral vessels consistent with expected postcatheterization changes. No active arterial extravasation or pseudoaneurysm identified. No retroperitoneal hematoma. No bowel wall thickening or obstruction. Normal caliber abdominal aorta. No evidence for a dissection. Patchy and linear bibasilar densities. This may represent atelectasis or a pneumonitis. Stable low-density bilateral adrenal gland nodules. These favor benign adenomas. GI was consulted for help with working up this pain. She has a long-standing h/o IBS and sees [facility] for this for many years. Added gabapentin to se if this helps the femoral neuralgia post procedure. (5) Irritable bowel syndrome: Plan: Chronic, stable. Cont Levsin and Bentyl PRN and daily Linzess per home regimen. (6) Osteoporosis: Plan: chronic, stable. Cont prolia per home regimen. (7) Anxiety: Plan: chronic, stable. Managed by Dr. Majano (psychiatry). Cont Buspar, ativan, seroquel and Belsomra per home regimen. (8) Vitamin D insufficiency: Plan: cont home supplementation weekly (9) DMII (diabetes mellitus, type 2): Plan: chronic, stable. Repeat A1C reflects good control at 6.1. Hold glipizide while inpatient. Cont with insulin coverage while inpatient. (10) Hypothyroidism: Plan: chronic, stable. Repeat TSH reflects good control. Cont [place] Thyroid 60mg daily per home regimen. (11) Adrenal nodule: Plan: per outpatient PCP. DVT prophy-Lovenox Full Code Dispo-PCU Admission and Anticipated Discharge Date Admission Date: July 28, 2023 Subjective 57-year-old female admitted with acute RCA occlusion status post drug-eluting stent placed 07/28. denies chest pain still has pain in her R lower abdomen/Right groin, says it's worse today than it was yesterday Pt seen ambulating in ICU w/ help of her , only able to do about 2 small laps and then needed to rest d/t pain Review of Systems Review of Systems: All systems reviewed & are unremarkable except as noted in Subjective Physical Exam Physical Exam: CONSTITUTIONAL: WN/WD, in NAD EYES: normal conjunctivae, no scleral icterus ENT: external ear and nose normal, MMM NECK: trachea midline, RESPIRATORY: clear to auscultation bilaterally, no crackles, rales or wheezes, normal respiratory effort CARDIOVASCULAR: regular rate and rhythm, no murmurs, gallops or rubs, no JVD, no peripheral edema CHEST: inspection of chest was normal GASTROINTESTINAL: normal bowel sounds, soft, TTP in right abdominal, ND SKIN: warm and dry, no ecchymosis or swelling of femoral site on right NEURO/PSYCH:awake alert oriented, answers appropriately, normal speech, moves extremities Results & Data Results & Data Vital Signs (Past 12 Hours) Vital Signs Temp Pulse Pulse Resp BP BP Pulse Ox 07/31/23 07:48 36.6 C 59 L 23 112/62 96 07/31/23 05:10 73 20 07/31/23 05:03 76 14 94 07/31/23 05:03 37.0 C 105/69 07/31/23 05:00 78 24 07/31/23 00:00 70 16 07/30/23 23:58 75 22 07/30/23 23:58 37.0 C 125/69 99 07/30/23 23:30 64 13 07/30/23 23:10 67 O2 Del Method 07/31/23 07:48 Room Air 07/31/23 05:10 07/31/23 05:03 07/31/23 05:03 07/31/23 05:00 07/31/23 00:00 07/30/23 23:58 07/30/23 23:58 Room Air 07/30/23 23:30 07/30/23 23:10 Laboratory Results 07/31/23 07/31/23 07/31/23 Range/Units 07:14 04:59 04:59 WBC 9.55 (4.8-10.8) K/ul RBC 4.55 (4.20-5.40) M/uL Hgb 12.8 (12.0-16.0) g/dl Hct 38.1 (37.0-47.0) % MCV 83.7 (80.0-100.0) fL MCH 28.1 (25.0-34.0) pg MCHC 33.6 (32.0-36.0) g/dL RDW Std Deviation 47.5 H (36.4-46.3) fL RDW Coeff of Sharla 15.6 H (11.5-14.5) % Plt Count 260 (130-400) K/uL MPV 9.7 (9.4-12.4) fL Sodium 138 (136-145) mmol/L Potassium 3.7 (3.5-5.1) mmol/L Chloride 110 H (98-107) mmol/L Carbon Dioxide 21 (21-32) mmol/L Anion Gap 7 (3-11) BUN 18 (6-23) mg/dl Creatinine 0.79 (0.6-1.2) mg/dl Est Cr Clr Drug Dosing 71.8 ml/min Est GFR ( Amer) 95.0 ml/min Est GFR (Non-Af Amer) 81.9 ml/min BUN/Creatinine Ratio 22.8 H (10-20) Glucose 109 H (70-99(Fasting)) mg/dl POC Glucose 98 (70-99) mg/dl Calcium 9.3 (8.6-10.3) mg/dl Phosphorus 4.2 (2.5-4.9) mg/dl Magnesium 2.2 (1.7-2.4) mg/dl 07/30/23 07/30/23 07/30/23 Range/Units 20:28 16:25 11:12 WBC (4.8-10.8) K/ul RBC (4.20-5.40) M/uL Hgb (12.0-16.0) g/dl Hct (37.0-47.0) % MCV (80.0-100.0) fL MCH (25.0-34.0) pg MCHC (32.0-36.0) g/dL RDW Std Deviation (36.4-46.3) fL RDW Coeff of Sharla (11.5-14.5) % Plt Count (130-400) K/uL MPV (9.4-12.4) fL Sodium (136-145) mmol/L Potassium (3.5-5.1) mmol/L Chloride (98-107) mmol/L Carbon Dioxide (21-32) mmol/L Anion Gap (3-11) BUN (6-23) mg/dl Creatinine (0.6-1.2) mg/dl Est Cr Clr Drug Dosing ml/min Est GFR ( Amer) ml/min Est GFR (Non-Af Amer) ml/min BUN/Creatinine Ratio (10-20) Glucose (70-99(Fasting)) mg/dl POC Glucose 101 H 116 H 120 H (70-99) mg/dl Calcium (8.6-10.3) mg/dl Phosphorus (2.5-4.9) mg/dl Magnesium (1.7-2.4) mg/dl Medications Administered Current Inpatient Medications Acetaminophen (Acetaminophen 325 Mg Tab) 650 mg PO Q4H PRN PRN Reason: MILD Pain (Scale 1,2,3) Stop: 08/27/23 06:28 Last Admin: 07/31/23 07:26 Dose: 650 mg Aspirin (Aspirin 81 Mg Ectab) 81 mg PO QAM [facility] Stop: 08/27/23 08:59 Last Admin: 07/31/23 08:15 Dose: 81 mg Atorvastatin Calcium (Atorvastatin 40 Mg Tab) 80 mg PO QAM [facility] Stop: 08/27/23 08:59 Last Admin: 07/31/23 08:16 Dose: 80 mg Buspirone HCl (Buspirone 7.5 Mg Tab) 22.5 mg PO QID [facility] Stop: 08/27/23 12:59 Last Admin: 07/31/23 08:16 Dose: 22.5 mg Dextrose (Dextrose 50% 50 Ml Syringe) 25 - 50 ml IV UD PRN; Protocol PRN Reason: Hypoglycemia Protocol Stop: 08/27/23 10:09 Dicyclomine HCl (Dicyclomine Hcl 20 Mg Tab) 20 mg PO QID PRN PRN Reason: IBS Stop: 08/27/23 08:43 Last Admin: 07/30/23 08:27 Dose: 20 mg Enoxaparin Sodium (Enoxaparin Inj 40 Mg/0.4 Ml Syr) 40 mg SQ HS [facility] Stop: 08/27/23 20:59 Last Admin: 07/30/23 20:25 Dose: 40 mg Ergocalciferol (Ergocalciferol 50,000 Units 1250 Mcg Cap) 50,000 units PO Fr@0900 [facility] Stop: 08/29/23 08:59 Last Admin: 07/30/23 08:09 Dose: 50,000 units Gabapentin (Gabapentin 300 Mg Cap) 300 mg PO BID [facility] Stop: 08/29/23 13:29 Last Admin: 07/31/23 07:30 Dose: 300 mg Glucagon (Glucagon For Inj 1 Mg Vial) 1 mg SQ UD PRN; Protocol PRN Reason: Hypoglycemia Protocol Stop: 08/27/23 10:09 Glucose (Glucose 40% Gel 15 Gm Tube) 15 - 30 gm PO UD PRN; Protocol PRN Reason: Hypoglycemia Protocol Stop: 08/27/23 10:09 Glucose (Glucose 10 Tab/Tube) 4 - 8 tab PO UD PRN; Protocol PRN Reason: Hypoglycemia Treatment Stop: 08/27/23 10:09 Hydromorphone HCl (Hydromorphone Inj 0.5 Mg/0.5 Ml Syr) 0.5 mg IV Q4H PRN PRN Reason: severe pain Stop: 08/13/23 13:25 Hyoscyamine (Hyoscyamine Sulfate 0.125 Mg Tab) 0.125 mg PO QID PRN PRN Reason: Abdominal Pain Stop: 08/27/23 08:51 Last Admin: 07/29/23 19:47 Dose: 0.125 mg Insulin Aspart (Insulin Aspart Per Unit Charge) 0 units SC ACHS [facility] Stop: 08/27/23 11:29 Last Admin: 07/31/23 07:32 Dose: Not Given Lidocaine (Lidocaine 5% 1 Patch) 1 patch TD HS [facility] Stop: 08/29/23 20:59 Last Admin: 07/30/23 20:22 Dose: 1 patch Linaclotide (Linaclotide 145 Mcg Capsule) 290 mcg PO DAILY [facility] Stop: 08/28/23 14:09 Last Admin: 07/31/23 08:17 Dose: 290 mcg Lorazepam (Lorazepam 0.5 Mg Tab) 0.5 mg PO TID [facility] Stop: 08/27/23 08:59 Last Admin: 07/31/23 08:17 Dose: 0.5 mg Metoprolol Succinate (Metoprolol Succ 25mg Ext Rel Tab) 25 mg PO QAM [facility] Stop: 08/29/23 11:14 Last Admin: 07/31/23 08:17 Dose: 25 mg Miscellaneous (Carbohydrates For Hypoglycemia ) 15 - 30 gm PO UD PRN PRN Reason: Hypoglycemia Protocol Stop: 08/27/23 10:09 Miscellaneous (Remove Lidoderm Patch) 1 each N/A DAILY@0900 [facility] Stop: 08/29/23 08:59 Last Admin: 07/31/23 08:18 Dose: 1 each Suvorexant 20mg Tab ([Patient Own Med]) 1 each PO HS PRN PRN Reason: Sleep Stop: 08/29/23 20:59 Last Admin: 07/30/23 20:24 Dose: 20 mg Pantoprazole Sodium (Pantoprazole 40 Mg Tab) 40 mg PO BID [facility]; Protocol Stop: 08/28/23 20:59 Last Admin: 07/31/23 08:17 Dose: 40 mg Quetiapine Fumarate (Quetiapine Fumarate 300 Mg Tablet) 300 mg PO HS [facility] Stop: 08/29/23 20:59 Last Admin: 07/30/23 20:23 Dose: 300 mg Sucralfate (Sucralfate 1 Gm/10 Ml Udc) 1 gm PO BID [facility] Stop: 08/28/23 20:59 Last Admin: 07/31/23 08:18 Dose: 1 gm Thyroid ([place] Thyroid 30 Mg Tab) 60 mg PO DAILY [facility] Stop: 08/28/23 08:59 Last Admin: 07/31/23 08:18 Dose: 60 mg Ticagrelor (Ticagrelor 90 Mg Tab) 90 mg PO BID [facility] Stop: 08/27/23 20:59 Last Admin: 07/31/23 08:18 Dose: 90 mg Tramadol HCl (Tramadol Hcl 50 Mg Tablet) 50 mg PO Q4H PRN PRN Reason: Pain Stop: 08/28/23 07:33 Last Admin: 07/31/23 05:23 Dose: 50 mg
--- NOTE | 2023-07-31 11:31 | Cardiology Progress Note ---
Date of Service July 31, 2023 Assessment & Plan (1) Acute myocardial infarction involving right coronary artery: (2) Bradycardia: (3) Dyslipidemia: (4) Abdominal pain: (5) Adrenal nodule: Plan: (1) Acute myocardial infarction involving right coronary artery: -Culprit ostial right coronary artery stenosis for which patient underwent PCI, drug-eluting stent in an emergent fashion. -Although troponin peaked at 19,231 pg/ml, it has trended down and she has no angina, and no regional wall motions were noted on post PCI echocardiogram. -Continue dual antiplatelet therapy with aspirin (lifelong therapy), and Brilinta for at least 1 year. High-grade AV block noted on presentation likely due to RCA territory ischemia and has since resolved. Transition metoprolol to tartrate to metoprolol succinate 25 mg 1 time per day, hold for heart rate less than 50, systolic blood pressure less than 100 mm hg. Continue high intensity statin therapy. I suspect patient's abdominal pain related to IBS. Femoral and peripheral pulses are normal. There is no hematoma or bruit on examination. No evidence of hematoma, pseudoaneurysm, or retroperitoneal hematoma per CT. No further inpatient cardiac testing or intervention recommended at this time. Outpatient cardiology follow-up in 2 to 4 weeks. Admission and Anticipated Discharge Date Admission Date: July 28, 2023 Subjective Patient seen and examined at the bedside. Continues to note right lower quadrant abdominal discomfort with some radiation to her right lower extremity. Denies chest pain or shortness of breath. Telemetry reveals sinus bradycardia. Patient reports similar abdominal discomfort when visiting family in [place]. [place] was [place] who [place]. Notes ongoing nausea without vomiting. Able to move her bowels yesterday. Symptoms attributed to irritable bowel syndrome in the past. She is chronically treated with Linzess. Review of Systems Review of Systems: All systems reviewed & are unremarkable except as noted in HPI & below Physical Exam Constitutional: well developed and well nourished; no acute distress Respiratory: no respiratory distress, no labored breathing and no retractions Auscultation: no crackles, no rales, no rhonchi and no wheezes Cardiovascular: Rate/Rhythm: regular rate and regular rhythm Heart Sounds: normal S1 and normal S2; no murmur Vessels: femoral pulses present and radial pulses present; no JVD and no carotid bruit Gastrointestinal (Abdomen): Inspection/Auscultation: + abdomen distended and normal bowel sounds Percussion/Palpation: + abdomen tender (Right lower quadrant); no guarding and abdomen not rigid Neurologic: CN's II-XI intact bilaterally and moves all extremities; no focal motor deficits Results & Data Vital Signs (Past 12 Hours) Vital Signs Temp Pulse Pulse Resp BP BP Pulse Ox 07/31/23 11:21 64 18 131/69 95 07/31/23 07:47 61 25 H 96 07/31/23 11:21 36.7 C 07/31/23 07:48 36.6 C 59 L 23 112/62 96 07/31/23 05:10 73 20 07/31/23 05:03 76 14 94 07/31/23 05:03 37.0 C 105/69 07/31/23 05:00 78 24 07/31/23 00:00 70 16 07/30/23 23:58 75 22 07/30/23 23:58 37.0 C 125/69 99 07/30/23 23:30 64 13 O2 Del Method 07/31/23 11:21 Room Air 07/31/23 07:47 07/31/23 11:21 07/31/23 07:48 Room Air 07/31/23 05:10 07/31/23 05:03 07/31/23 05:03 07/31/23 05:00 07/31/23 00:00 07/30/23 23:58 07/30/23 23:58 Room Air 07/30/23 23:30 Laboratory Results CBC 07/31/23 Range/Units 04:59 WBC 9.55 (4.8-10.8) K/ul RBC 4.55 (4.20-5.40) M/uL Hgb 12.8 (12.0-16.0) g/dl Hct 38.1 (37.0-47.0) % Plt Count 260 (130-400) K/uL Comprehensive Metabolic Panel 07/31/23 Range/Units 04:59 Sodium 138 (136-145) mmol/L Potassium 3.7 (3.5-5.1) mmol/L Chloride 110 H (98-107) mmol/L Carbon Dioxide 21 (21-32) mmol/L BUN 18 (6-23) mg/dl Creatinine 0.79 (0.6-1.2) mg/dl Glucose 109 H (70-99(Fasting)) mg/dl Calcium 9.3 (8.6-10.3) mg/dl Intake and Output 07/30/23 07/31/23 07/31/23 22:59 06:59 14:59 Intake Total 550 / 550 Balance 550 / 550 Intake: Oral 550 / 550 Other: # Unmeasured Voids 6 Weight 64.9 kg Weight Measurement Method Built in [facility]
[2023-07-31 13:44] LABS: Adenovirus F 40/41 PCR Not Detected (NotDetected); Astrovirus PCR Not Detected (NotDetected); Campylobacter PCR Not Detected (NotDetected); Cryptosporidium PCR Not Detected (NotDetected); Cyclospora cayetanensis PCR Not Detected (NotDetected); Entamoeba histolytica PCR Not Detected (NotDetected); Enteroaggregative E.coli(EAEC) Not Detected (NotDetected); Enteropathogenic E.coli (EPEC) Not Detected (NotDetected); Enterotoxigenic E.coli (ETEC) Not Detected (NotDetected); Giardia lamblia PCR Not Detected (NotDetected); Norovirus GI/GII PCR Not Detected (NotDetected); Plesiomonas shigelloides PCR Not Detected (NotDetected); Rotavirus A PCR Not Detected (NotDetected); Salmonella PCR Not Detected (NotDetected); Sapovirus PCR Not Detected (NotDetected); Shiga-like Toxin E.coli (STEC) Not Detected (NotDetected); Shigella/Enteroinvasive E.coli Not Detected (NotDetected); Vibrio cholerae PCR Not Detected (NotDetected); Vibrio species PCR Not Detected (NotDetected); Yersinia enterocolitica PCR Not Detected (NotDetected)
[2023-07-31] MEDS: HYDROmorphone INJ 0.5 MG/0.5 ML SYR IV PRN (18:00)
[2023-07-31] MEDS: SUVOREXANT 20 MG PO PRN (20:35)
[2023-07-31] MEDS: LIDOCAINE 5% 1 PATCH TD SCH (20:36)
[2023-07-31] MEDS: QUEtiapine FUMARATE 300 MG TABLET PO SCH (20:39)
[2023-07-31] MEDS: ENOXAPARIN INJ 40 MG/0.4 ML SYR SQ SCH (20:39)
[2023-07-31] MEDS: DICYCLOMINE HCL 20 MG TAB PO PRN (20:42)
[2023-08-01 04:26] LABS: Hemoglobin 13.2 g/dl (12.0-16.0); Mean Corpuscular Hemoglobin 28.4 pg (25.0-34.0); Mean Corpuscular Hgb Conc 33.8 g/dL (32.0-36.0); Mean Corpuscular Volume 83.9 fL (80.0-100.0); Mean Platelet Volume 9.7 fL (9.4-12.4); Platelet Count 274 K/uL (130-400); RDW Coefficient of Variation 15.3 % (11.5-14.5); RDW Standard Deviation 46.5 fL (36.4-46.3); Red Blood Count 4.65 M/uL (4.20-5.40); White Blood Count 8.95 K/ul (4.8-10.8)
[2023-08-01 04:45] LABS: BUN Creatinine Ratio 28.4 (10-20); Calcium 9.1 mg/dl (8.6-10.3); Est GFR (African American) 92.1 ml/min; Est GFR (Non-African American) 79.5 ml/min; Magnesium 2.1 mg/dl (1.7-2.4); Phosphorus 3.9 mg/dl (2.5-4.9); Potassium 3.6 mmol/L (3.5-5.1)
[2023-08-01] MEDS: INSULIN ASPART PER UNIT CHARGE SC SCH ×4 (08:02→20:39)
[2023-08-01] MEDS: LORazepam 0.5 MG TAB PO SCH ×3 (08:22→20:38)
[2023-08-01] MEDS: traMADol HCL 50 MG TABLET PO PRN ×3 (08:22→20:37)
[2023-08-01] MEDS: ASPIRIN 81 MG ECTAB PO SCH (08:23)
[2023-08-01] MEDS: ATORVASTATIN 40 MG TAB PO SCH (08:23)
[2023-08-01] MEDS: GABAPENTIN 300 MG CAP PO SCH ×2 (08:24→20:38)
[2023-08-01] MEDS: busPIRone 7.5 MG TAB PO SCH ×4 (08:24→20:39)
[2023-08-01] MEDS: METOPROLOL SUCC 25MG EXT REL TAB PO SCH (08:25)
[2023-08-01] MEDS: LINACLOTIDE 145 MCG CAPSULE PO SCH (08:25)
[2023-08-01] MEDS: SUCRALFATE 1 GM/10 ML UDC PO SCH ×2 (08:26→20:36)
[2023-08-01] MEDS: PANTOprazole 40 MG TAB PO SCH ×2 (08:26→20:38)
[2023-08-01] MEDS: ARMOUR THYROID 30 MG TAB PO SCH (08:26)
[2023-08-01] MEDS: TICAGRELOR 90 MG TAB PO SCH ×2 (08:27→20:38)
--- NOTE | 2023-08-01 08:54 | Hospitalist Progress Note ---
Date of Service August 01, 2023 Assessment & Plan (1) Acute myocardial infarction involving right coronary artery: Plan: s/p TOMMIE to RCA occlusion with resolution of chest pain and symptoms. Cont DAPT with aspirin and ticagrelor, atorvastatin 80mg daily, metoprolol tartrate 12.5mg PO BID. Cardiology following. (2) Bradycardia: Plan: Transient third degree heart block related to ischemia. Currently in NSR after catheterization. Cont monitoring on telemetry. (3) Infiltrate of both lungs present on imaging study: Plan: patient does report a cough for two weeks and some chills with a generalized unwell feeling prior to arrival. Although this may just be an atypical presentation of pulmonary edema, she is not fluid overloaded and with symptoms, Rocephin/azithromycin started empirically. Blood cultures are preliminarily negative and she is not coughing, Procalcitonin is negative. Abx were stopped. Consider repeat CXR in 4 weeks to ensure resolution of infiltrates. (4) Abdominal pain: Plan: chronic, nonspecific. CT abd pelvis reveals trace hemorrhage anterior to the common femoral vessels consistent with expected postcatheterization changes. No active arterial extravasation or pseudoaneurysm identified. No retroperitoneal hematoma. No bowel wall thickening or obstruction. Normal caliber abdominal aorta. No evidence for a dissection. Patchy and linear bibasilar densities. This may represent atelectasis or a pneumonitis. Stable low-density bilateral adrenal gland nodules. These favor benign adenomas. GI was consulted for help with working up this pain. She has a long-standing h/o IBS and sees [facility] for this for many years. Added gabapentin to se if this helps the femoral neuralgia post procedure. Unfortunately pt continues to have significant pain. Stool pcr - negative, H.pylori antigen and Giardia antigen pending. Pt does report loose stools lately (since being in [facility]). Repeat KUB Pt may need further work up by GI while inpt (5) Irritable bowel syndrome: Plan: Cont Levsin and Bentyl PRN and daily Linzess per home regimen. Pt reports being on her meds for years and never having loose stools like this. Reports loose stools recently (since being in [facility]). Stool pcr - negative H. pylori and Giardia antigens pending (6) Osteoporosis: Plan: chronic, stable. Cont prolia per home regimen. (7) Anxiety: Plan: chronic, stable. Managed by Dr. Majano (psychiatry). Cont Buspar, ativan, seroquel and Belsomra per home regimen. (8) Vitamin D insufficiency: Plan: cont home supplementation weekly (9) DMII (diabetes mellitus, type 2): Plan: chronic, stable. Repeat A1C reflects good control at 6.1. Hold glipizide while inpatient. Cont with insulin coverage while inpatient. (10) Hypothyroidism: Plan: chronic, stable. Repeat TSH reflects good control. Cont [place] Thyroid 60mg daily per home regimen. (11) Adrenal nodule: Plan: per outpatient PCP. DVT prophy-Lovenox Full Code Dispo-PCU Admission and Anticipated Discharge Date Admission Date: July 28, 2023 Subjective 57-year-old female admitted with acute RCA occlusion status post drug-eluting stent placed 07/28. denies chest pain still has pain in her R lower abdomen/Right groin Pt seen ambulating yesterday in ICU area w/ help of her , only able to do about 2 small laps and then needed to rest d/t pain Stool pcr - negative, H. pylori antigen and Giardia Ag pending Will repeat KUB, pt may need further work-up with GI while inpt Review of Systems Review of Systems: All systems reviewed & are unremarkable except as noted in Subjective Physical Exam Physical Exam: CONSTITUTIONAL: WN/WD, in NAD EYES: normal conjunctivae, no scleral icterus ENT: external ear and nose normal, MMM NECK: trachea midline, RESPIRATORY: clear to auscultation bilaterally, no crackles, rales or wheezes, normal respiratory effort CARDIOVASCULAR: regular rate and rhythm, no murmurs, gallops or rubs, no JVD, no peripheral edema CHEST: inspection of chest was normal GASTROINTESTINAL: normal bowel sounds, soft, TTP in right abdominal, ND SKIN: warm and dry, no ecchymosis or swelling of femoral site on right NEURO/PSYCH:awake alert oriented, answers appropriately, normal speech, moves extremities Results & Data Results & Data Vital Signs (Past 12 Hours) Vital Signs Temp Pulse Resp BP Pulse Ox O2 Del Method 08/01/23 07:12 87 20 124/74 94 Room Air 08/01/23 07:12 37.1 C 08/01/23 04:12 82 18 93 08/01/23 04:11 118/65 08/01/23 04:11 36.9 C 84 18 95 Room Air 07/31/23 23:50 72 15 07/31/23 23:49 36.8 C 130/65 99 Room Air 07/31/23 23:49 75 22 07/31/23 23:40 67 16 07/31/23 23:12 65 Laboratory Results 08/01/23 08/01/23 08/01/23 Range/Units 07:09 04:06 04:06 WBC 8.95 (4.8-10.8) K/ul RBC 4.65 (4.20-5.40) M/uL Hgb 13.2 (12.0-16.0) g/dl Hct 39.0 (37.0-47.0) % MCV 83.9 (80.0-100.0) fL MCH 28.4 (25.0-34.0) pg MCHC 33.8 (32.0-36.0) g/dL RDW Std Deviation 46.5 H (36.4-46.3) fL RDW Coeff of Sharla 15.3 H (11.5-14.5) % Plt Count 274 (130-400) K/uL MPV 9.7 (9.4-12.4) fL Sodium 138 (136-145) mmol/L Potassium 3.6 (3.5-5.1) mmol/L Chloride 110 H (98-107) mmol/L Carbon Dioxide 20 L (21-32) mmol/L Anion Gap 8 (3-11) BUN 23 (6-23) mg/dl Creatinine 0.81 (0.6-1.2) mg/dl Est Cr Clr Drug Dosing 70.0 ml/min Est GFR ( Amer) 92.1 ml/min Est GFR (Non-Af Amer) 79.5 ml/min BUN/Creatinine Ratio 28.4 H (10-20) Glucose 98 (70-99(Fasting)) mg/dl POC Glucose 101 H (70-99) mg/dl Calcium 9.1 (8.6-10.3) mg/dl Phosphorus 3.9 (2.5-4.9) mg/dl Magnesium 2.1 (1.7-2.4) mg/dl Stl C. cayetanensis PCR (NotDetected) Stool Rotavirus A PCR (NotDetected) Stl Adenov F 40/ PCR (NotDetected) Stool Astrovirus (PCR) (NotDetected) Stool Campylobacter PCR (NotDetected) Stool Cryptosporidium PCR (NotDetected) Stl E.coli Shiga Tox PCR (NotDetected) Stl Enterotoxigenic E PCR (NotDetected) Stool EPEC (PCR) (NotDetected) Stool EAEC (PCR) (NotDetected) Stl E. histolytica PCR (NotDetected) Stool Giardia Lamblia PCR (NotDetected) Stool H. pylori Ag Stool Salmonella PCR (NotDetected) Stool Sapovirus (PCR) (NotDetected) Stl P. shigelloides PCR (NotDetected) Stl Shigella/EIEC PCR (NotDetected) St Y.enterocolitica PCR (NotDetected) Stool Vibrio (PCR) (NotDetected) Stl Vibrio cholerae PCR (NotDetected) Stl Norovirus GI/GII PCR (NotDetected) Giardia Antigen 07/31/23 07/31/23 07/31/23 Range/Units 20:27 16:37 11:46 WBC (4.8-10.8) K/ul RBC (4.20-5.40) M/uL Hgb (12.0-16.0) g/dl Hct (37.0-47.0) % MCV (80.0-100.0) fL MCH (25.0-34.0) pg MCHC (32.0-36.0) g/dL RDW Std Deviation (36.4-46.3) fL RDW Coeff of Sharla (11.5-14.5) % Plt Count (130-400) K/uL MPV (9.4-12.4) fL Sodium (136-145) mmol/L Potassium (3.5-5.1) mmol/L Chloride (98-107) mmol/L Carbon Dioxide (21-32) mmol/L Anion Gap (3-11) BUN (6-23) mg/dl Creatinine (0.6-1.2) mg/dl Est Cr Clr Drug Dosing ml/min Est GFR ( Amer) ml/min Est GFR (Non-Af Amer) ml/min BUN/Creatinine Ratio (10-20) Glucose (70-99(Fasting)) mg/dl POC Glucose 99 105 H (70-99) mg/dl Calcium (8.6-10.3) mg/dl Phosphorus (2.5-4.9) mg/dl Magnesium (1.7-2.4) mg/dl Stl C. cayetanensis PCR (NotDetected) Stool Rotavirus A PCR (NotDetected) Stl Adenov F 40/41 PCR (NotDetected) Stool Astrovirus (PCR) (NotDetected) Stool Campylobacter PCR (NotDetected) Stool Cryptosporidium PCR (NotDetected) Stl E.coli Shiga Tox PCR (NotDetected) Stl Enterotoxigenic E PCR (NotDetected) Stool EPEC (PCR) (NotDetected) Stool EAEC (PCR) (NotDetected) Stl E. histolytica PCR (NotDetected) Stool Giardia Lamblia PCR (NotDetected) Stool H. pylori Ag Pending Stool Salmonella PCR (NotDetected) Stool Sapovirus (PCR) (NotDetected) Stl P. shigelloides PCR (NotDetected) Stl Shigella/EIEC PCR (NotDetected) St Y.enterocolitica PCR (NotDetected) Stool Vibrio (PCR) (NotDetected) Stl Vibrio cholerae PCR (NotDetected) Stl Norovirus GI/GII PCR (NotDetected) Giardia Antigen 07/31/23 07/31/23 07/31/23 Range/Units 11:46 11:46 11:20 WBC (4.8-10.8) K/ul RBC (4.20-5.40) M/uL Hgb (12.0-16.0) g/dl Hct (37.0-47.0) % MCV (80.0-100.0) fL MCH (25.0-34.0) pg MCHC (32.0-36.0) g/dL RDW Std Deviation (36.4-46.3) fL RDW Coeff of Sharla (11.5-14.5) % Plt Count (130-400) K/uL MPV (9.4-12.4) fL Sodium (136-145) mmol/L Potassium (3.5-5.1) mmol/L Chloride (98-107) mmol/L Carbon Dioxide (21-32) mmol/L Anion Gap (3-11) BUN (6-23) mg/dl Creatinine (0.6-1.2) mg/dl Est Cr Clr Drug Dosing ml/min Est GFR ( Amer) ml/min Est GFR (Non-Af Amer) ml/min BUN/Creatinine Ratio (10-20) Glucose (70-99(Fasting)) mg/dl POC Glucose 141 H (70-99) mg/dl Calcium (8.6-10.3) mg/dl Phosphorus (2.5-4.9) mg/dl Magnesium (1.7-2.4) mg/dl Stl C. cayetanensis PCR Not Detected (NotDetected) Stool Rotavirus A PCR Not Detected (NotDetected) Stl Adenov F 40/41 PCR Not Detected (NotDetected) Stool Astrovirus (PCR) Not Detected (NotDetected) Stool Campylobacter PCR Not Detected (NotDetected) Stool Cryptosporidium PCR Not Detected (NotDetected) Stl E.coli Shiga Tox PCR Not Detected (NotDetected) Stl Enterotoxigenic E PCR Not Detected (NotDetected) Stool EPEC (PCR) Not Detected (NotDetected) Stool EAEC (PCR) Not Detected (NotDetected) Stl E. histolytica PCR Not Detected (NotDetected) Stool Giardia Lamblia PCR Not Detected (NotDetected) Stool H. pylori Ag Stool Salmonella PCR Not Detected (NotDetected) Stool Sapovirus (PCR) Not Detected (NotDetected) Stl P. shigelloides PCR Not Detected (NotDetected) Stl Shigella/EIEC PCR Not Detected (NotDetected) St Y.enterocolitica PCR Not Detected (NotDetected) Stool Vibrio (PCR) Not Detected (NotDetected) Stl Vibrio cholerae PCR Not Detected (NotDetected) Stl Norovirus GI/GII PCR Not Detected (NotDetected) Giardia Antigen Pending Medications Administered Current Inpatient Medications Acetaminophen (Acetaminophen 325 Mg Tab) 650 mg PO Q4H PRN PRN Reason: MILD Pain (Scale 1,2,3) Stop: 08/27/23 06:28 Last Admin: 07/31/23 15:26 Dose: 650 mg Aspirin (Aspirin 81 Mg Ectab) 81 mg PO QAM [facility] Stop: 08/27/23 08:59 Last Admin: 08/01/23 08:23 Dose: 81 mg Atorvastatin Calcium (Atorvastatin 40 Mg Tab) 80 mg PO QAM [facility] Stop: 08/27/23 08:59 Last Admin: 08/01/23 08:23 Dose: 80 mg Buspirone HCl (Buspirone 7.5 Mg Tab) 22.5 mg PO QID [facility] Stop: 08/27/23 12:59 Last Admin: 08/01/23 08:24 Dose: 22.5 mg Dextrose (Dextrose 50% 50 Ml Syringe) 25 - 50 ml IV UD PRN; Protocol PRN Reason: Hypoglycemia Protocol Stop: 08/27/23 10:09 Dicyclomine HCl (Dicyclomine Hcl 20 Mg Tab) 20 mg PO QID PRN PRN Reason: IBS Stop: 08/27/23 08:43 Last Admin: 07/31/23 20:42 Dose: 20 mg Enoxaparin Sodium (Enoxaparin Inj 40 Mg/0.4 Ml Syr) 40 mg SQ HS [facility] Stop: 08/27/23 20:59 Last Admin: 07/31/23 20:39 Dose: 40 mg Ergocalciferol (Ergocalciferol 50,000 Units 1250 Mcg Cap) 50,000 units PO Fr@0900 [facility] Stop: 08/29/23 08:59 Last Admin: 07/30/23 08:09 Dose: 50,000 units Gabapentin (Gabapentin 300 Mg Cap) 300 mg PO BID [facility] Stop: 08/29/23 13:29 Last Admin: 08/01/23 08:24 Dose: 300 mg Glucagon (Glucagon For Inj 1 Mg Vial) 1 mg SQ UD PRN; Protocol PRN Reason: Hypoglycemia Protocol Stop: 08/27/23 10:09 Glucose (Glucose 40% Gel 15 Gm Tube) 15 - 30 gm PO UD PRN; Protocol PRN Reason: Hypoglycemia Protocol Stop: 08/27/23 10:09 Glucose (Glucose 10 Tab/Tube) 4 - 8 tab PO UD PRN; Protocol PRN Reason: Hypoglycemia Treatment Stop: 08/27/23 10:09 Hydromorphone HCl (Hydromorphone Inj 0.5 Mg/0.5 Ml Syr) 0.5 mg IV Q4H PRN PRN Reason: severe pain Stop: 08/13/23 13:25 Last Admin: 07/31/23 18:00 Dose: 0.5 mg Hyoscyamine (Hyoscyamine Sulfate 0.125 Mg Tab) 0.125 mg PO QID PRN PRN Reason: Abdominal Pain Stop: 08/27/23 08:51 Last Admin: 07/29/23 19:47 Dose: 0.125 mg Insulin Aspart (Insulin Aspart Per Unit Charge) 0 units SC ACHS [facility] Stop: 08/27/23 11:29 Last Admin: 08/01/23 08:02 Dose: Not Given Lidocaine (Lidocaine 5% 1 Patch) 1 patch TD HS [facility] Stop: 08/29/23 20:59 Last Admin: 07/31/23 20:36 Dose: 1 patch Linaclotide (Linaclotide 145 Mcg Capsule) 290 mcg PO DAILY [facility] Stop: 08/28/23 14:09 Last Admin: 08/01/23 08:25 Dose: 290 mcg Lorazepam (Lorazepam 0.5 Mg Tab) 0.5 mg PO TID [facility] Stop: 08/27/23 08:59 Last Admin: 08/01/23 08:22 Dose: 0.5 mg Metoprolol Succinate (Metoprolol Succ 25mg Ext Rel Tab) 25 mg PO QAM [facility] Stop: 08/29/23 11:14 Last Admin: 08/01/23 08:25 Dose: 25 mg Miscellaneous (Carbohydrates For Hypoglycemia ) 15 - 30 gm PO UD PRN PRN Reason: Hypoglycemia Protocol Stop: 08/27/23 10:09 Miscellaneous (Remove Lidoderm Patch) 1 each N/A DAILY@0900 [facility] Stop: 08/29/23 08:59 Last Admin: 08/01/23 08:26 Dose: 1 each Suvorexant 20mg Tab ([Patient Own Med]) 1 each PO HS PRN PRN Reason: Sleep Stop: 08/29/23 20:59 Last Admin: 07/31/23 20:35 Dose: 20 mg Pantoprazole Sodium (Pantoprazole 40 Mg Tab) 40 mg PO BID STEPHAN; Protocol Stop: 08/28/23 20:59 Last Admin: 08/01/23 08:26 Dose: 40 mg Quetiapine Fumarate (Quetiapine Fumarate 300 Mg Tablet) 300 mg PO HS [facility] Stop: 08/29/23 20:59 Last Admin: 07/31/23 20:39 Dose: 300 mg Sucralfate (Sucralfate 1 Gm/10 Ml Udc) 1 gm PO BID [facility] Stop: 08/28/23 20:59 Last Admin: 08/01/23 08:26 Dose: 1 gm Thyroid ([place] Thyroid 30 Mg Tab) 60 mg PO DAILY [facility] Stop: 08/28/23 08:59 Last Admin: 08/01/23 08:26 Dose: 60 mg Ticagrelor (Ticagrelor 90 Mg Tab) 90 mg PO BID [facility] Stop: 08/27/23 20:59 Last Admin: 08/01/23 08:27 Dose: 90 mg Tramadol HCl (Tramadol Hcl 50 Mg Tablet) 50 mg PO Q4H PRN PRN Reason: Pain Stop: 08/28/23 07:33 Last Admin: 08/01/23 08:22 Dose: 50 mg
[2023-08-01] MEDS: HYDROmorphone INJ 0.5 MG/0.5 ML SYR IV PRN ×2 (10:34→18:17)
[2023-08-01] MEDS: ACETAMINOPHEN 325 MG TAB PO PRN (17:00)
--- NOTE | 2023-08-01 19:28 | XRay Report ---
KUB CLINICAL HISTORY: Right lower quadrant abdominal pain. FINDINGS: 2 AP, portable, supine abdominal radiographs are compared to study dated 07/29/2023 and corre lated with abdominal CT dated 07/28/2023. Cholecystectomy clips are seen in the right upper quadrant. T here is a nonobstructed abdominal bowel gas pattern. No evidence of intraperitoneal free air is seen on these supine images. Fecal retention has decreased from previous. There are no abnormal abdominal calcifications. A phlebolith is noted in the pelvis. The skeletal structures are osteopenic. There is a chronic compression deformity of L2 with evidence of previous vertebroplasty. Lumbosacral spondylo sis is noted. IMPRESSION: No acute abnormality is identified. Electronically signed by: Nishant Cook M.D. 08/01/2023 7:25 PM
[2023-08-01] MEDS: LIDOCAINE 5% 1 PATCH TD SCH (20:35)
[2023-08-01] MEDS: ENOXAPARIN INJ 40 MG/0.4 ML SYR SQ SCH (20:36)
[2023-08-01] MEDS: QUEtiapine FUMARATE 300 MG TABLET PO SCH (20:38)
[2023-08-01] MEDS: DICYCLOMINE HCL 20 MG TAB PO PRN (20:38)
[2023-08-01] MEDS: SUVOREXANT 20 MG PO PRN (21:31)
[2023-08-02 06:14] LABS: Hematocrit (blood only) 37.4 % (37.0-47.0); Hemoglobin 12.8 g/dl (12.0-16.0); Mean Corpuscular Hemoglobin 28.4 pg (25.0-34.0); Mean Corpuscular Hgb Conc 34.2 g/dL (32.0-36.0); Mean Corpuscular Volume 83.1 fL (80.0-100.0); Platelet Count 281 K/uL (130-400); RDW Coefficient of Variation 15.5 % (11.5-14.5); RDW Standard Deviation 47.2 fL (36.4-46.3); White Blood Count 9.55 K/ul (4.8-10.8)
[2023-08-02 06:22] LABS: Creatinine Clr Calc Pharmacy 59.1 ml/min; Est GFR (Non-African American) 64.7 ml/min; Phosphorus 3.5 mg/dl (2.5-4.9); Potassium 4.1 mmol/L (3.5-5.1)
[2023-08-02] MEDS: INSULIN ASPART PER UNIT CHARGE SC SCH ×4 (08:04→21:02)
[2023-08-02] MEDS: ASPIRIN 81 MG ECTAB PO SCH (08:20)
[2023-08-02] MEDS: ATORVASTATIN 40 MG TAB PO SCH (08:21)
[2023-08-02] MEDS: busPIRone 7.5 MG TAB PO SCH ×4 (08:21→21:03)
[2023-08-02] MEDS: GABAPENTIN 300 MG CAP PO SCH ×2 (08:22→21:03)
[2023-08-02] MEDS: LINACLOTIDE 145 MCG CAPSULE PO SCH (08:23)
[2023-08-02] MEDS: METOPROLOL SUCC 25MG EXT REL TAB PO SCH (08:23)
[2023-08-02] MEDS: PANTOprazole 40 MG TAB PO SCH ×2 (08:23→21:04)
[2023-08-02] MEDS: ARMOUR THYROID 30 MG TAB PO SCH (08:24)
[2023-08-02] MEDS: TICAGRELOR 90 MG TAB PO SCH ×2 (08:24→21:04)
[2023-08-02] MEDS: SUCRALFATE 1 GM/10 ML UDC PO SCH ×2 (08:24→21:05)
[2023-08-02] MEDS: LORazepam 0.5 MG TAB PO SCH ×3 (08:26→20:58)
[2023-08-02] MEDS: traMADol HCL 50 MG TABLET PO PRN ×3 (09:14→21:15)
[2023-08-02] MEDS: ACETAMINOPHEN 325 MG TAB PO PRN (10:16)
[2023-08-02] MEDS: HYDROmorphone INJ 0.5 MG/0.5 ML SYR IV PRN ×3 (10:56→20:57)
--- NOTE | 2023-08-02 14:25 | CT Scan Report ---
ABDOMEN AND PELVIS CT WITHOUT CONTRAST CT DOSE: 759.14 mGy.cm HISTORY: Acute generalized abdominal pain with possible colitis R/O Colitis TECHNIQUE: Multiaxial CT images of the abdomen and pelvis were performed without contrast. A dose lo wering technique was utilized adhering to the principles of ALARA. COMPARISON STUDY: 07/28/2023 FINDINGS: Mural fibrofatty changes of left ventricular apex suggestive of prior myocardial infarction . Coronary arterial calcifications. Mild subsegmental left basilar atelectasis. No free air. The unen hanced plane, and pancreas are unremarkable. Unchanged size of the bilateral adrenal adenomata. Makenna cystectomy. Unremarkable liver. No hydronephrosis or urolith identified. Urinary bladder wall thickening with partial distention. Unr emarkable appearance of uterus and adnexa. Atherosclerosis of the abdominal aorta. Hemorrhage within the right retroperitoneal tissues is noted tracking along the external iliac artery anterior to the r ight femoral arteries. The largest hemorrhagic focus measures up to 2.8 x 2.3 x 3.8 cm and is new fro m prior. Trace hemorrhage within the dependent pelvis. No bowel obstruction or bowel wall thickening. Mild colonic fecal retention. The appendix is not diag nostically visualized. Tiny fat filled umbilical hernia. There is no acute fracture. Chronic-appearin g thoracolumbar compression deformities. IMPRESSION: 1. Acute hemorrhage anterior to the right common femoral artery tracks along the external iliac vesse ls into the right retroperitoneum and dependent pelvis, possibly secondary to recent cardiac catheter ization. Focal hematoma measures up to approximately 4 cm. 2. No bowel obstruction or bowel wall thickening. 3. Cholecystectomy. 4. Additional findings as above. ACT 112: Negative or not required by law. The above report was generated using voice recognition software. It may contain grammatical, syntax o r spelling errors. Electronically signed by: Jose Stahl M.D. 08/02/2023 2:23 PM
--- NOTE | 2023-08-02 14:35 | Hospitalist Progress Note ---
Date of Service August 02, 2023 Assessment & Plan (1) Acute myocardial infarction involving right coronary artery: Plan: NSTEMI Echo of the heart showed: Mild concentric LVH, no regional wall motion abnormalities, LV systolic function is normal with EF 55 to 60%, grade 1 diastolic dysfunction, and there is no significant valvular disease S/p cardiac cath 1 07/28/2023 s/p TOMMIE to RCA occlusion with resolution of chest pain and symptoms. Cont DAPT with aspirin and ticagrelor, atorvastatin 80mg daily, metoprolol tartrate 12.5mg PO BID. Appreciate cardiology input and recommendation Patient is remained free of any cardiac symptoms (2) Abdominal pain: Plan: Acute on chronic abdominal discomfort and pain following travel to [facility] in April of this year Occasional diarrhea-stool cultures have been negative We will check a stool for C. difficile toxin GI was consulted for help with working up this pain. She has a long-standing h/o IBS and sees [facility] for this for many years. Added gabapentin to se if this helps the femoral neuralgia post procedure. Unfortunately pt continues to have significant pain. Stool pcr - negative, H.pylori antigen and Giardia antigen pending. Pt does report loose stools lately (since being in [facility]). Acute intra-abdominal hemorrhage involving cardiac catheterization site around right common femoral artery Initial CT abd pelvis on 07/28/2023 reveals trace hemorrhage anterior to the common femoral vessels consistent with expected postcatheterization changes. Pain continued and a repeat CT scan showed: Acute hemorrhage anterior to the right common femoral artery tracks along the external iliac vessels into the right retroperitoneum and dependent pelvis, possibly secondary to recent cardiac catheterization. Focal hematoma measures up to 4 cm(2.8 x 2.3 x 3.8 cm).Stable low-density bilateral adrenal gland nodules. These favor benign adenomas. Hemoglobin remains stable Will continue with the current DAPT treatment and observe Will need more pain medications (3) Bradycardia: Plan: Transient third degree heart block related to ischemia. Currently in NSR after catheterization. Cont monitoring on telemetry. (4) Infiltrate of both lungs present on imaging study: Plan: patient does report a cough for two weeks and some chills with a generalized unwell feeling prior to arrival. Although this may just be an atypical presentation of pulmonary edema, she is not fluid overloaded and with symptoms, Rocephin/azithromycin started empirically. Blood cultures are preliminarily negative and she is not coughing, Procalcitonin is negative. Abx were stopped. Consider repeat CXR in 4 weeks to ensure resolution of infiltrates. (5) Irritable bowel syndrome: Plan: Cont Levsin and Bentyl PRN and daily Linzess per home regimen. Pt reports being on her meds for years and never having loose stools like this. Reports loose stools recently (since being in [facility]). Stool pcr - negative H. pylori and Giardia antigens pending (6) Osteoporosis: Plan: Chronic, stable. Cont prolia per home regimen. (7) Anxiety: Plan: Chronic, stable. Managed by Dr. Majano (psychiatry). Cont Buspar, ativan, seroquel and Belsomra per home regimen. (8) Vitamin D insufficiency: Plan: Cont home supplementation weekly (9) DMII (diabetes mellitus, type 2): Plan: chronic, stable. Repeat A1C reflects good control at 6.1. Hold glipizide while inpatient. Cont with insulin coverage while inpatient. (10) Hypothyroidism: Plan: Chronic, stable. Repeat TSH reflects good control. Cont [place] Thyroid 60mg daily per home regimen. (11) Adrenal nodule: Plan: per outpatient PCP. DVT prophy-Lovenox Full Code Dispo-PCU Admission and Anticipated Discharge Date Admission Date: July 28, 2023 Subjective 08/02/2023 The patient was seen and examined in ICU in presence of the She has been complaining of more pain involving the right lower abdomen and inguinal area Denies any chest pain and/or palpitation and no shortness of breath at rest Remains generally weak and very anxious Review of Systems Review of Systems: All systems reviewed and are unremarkable except as noted below Gastrointestinal: Right lower quadrant pain and swelling Physical Exam Physical Exam: Lying in bed without any acute distress but remains very anxious Constitutional: + ill appearing and average body habitus Eyes: PERRL, conjunctivae normal, anicteric sclerae ENMT: external ear and nose normal, oropharynx normal Neck: trachea midline, no thyromegaly Respiratory: no respiratory distress Auscultation: lungs clear to auscultation bilaterally Cardiovascular: Rate/Rhythm: regular rate and regular rhythm; not tachycardic Heart Sounds: normal S1 and normal S2; no murmur Extremities: no edema Gastrointestinal (Abdomen): Inspection/Auscultation: + abdomen distended and normal bowel sounds (Diminished) Percussion/Palpation: + abdomen tender (Right-sided swelling and tenderness mostly in right lower quadrant) and abdomen soft Musculoskeletal: No acute arthritis involving any of the joint Neurologic: normal touch/pain/proprioception and moves all extremities; no focal motor deficits Psychiatric: A+Ox3, euthymic affect Lymphatic: no cervical or axillary lymphadenopathy Results & Data Results & Data Vital Signs (Past 12 Hours) Vital Signs Temp Pulse Pulse Resp BP BP Pulse Ox 08/02/23 12:26 60 17 118/62 95 08/02/23 12:26 36.8 C 08/02/23 08:00 68 08/02/23 07:11 36.9 C 75 18 139/76 97 08/02/23 05:30 36.9 C 76 17 129/77 94 O2 Del Method 08/02/23 12:26 Room Air 08/02/23 12:26 08/02/23 08:00 08/02/23 07:11 Room Air 08/02/23 05:30 Room Air Laboratory Results Short CBC 08/02/23 Range/Units 05:38 WBC 9.55 (4.8-10.8) K/ul Hgb 12.8 (12.0-16.0) g/dl Hct 37.4 (37.0-47.0) % Plt Count 281 (130-400) K/uL BMP 08/02/23 05:38 Sodium 138 Potassium 4.1 Chloride 110 H Carbon Dioxide 22 BUN 24 H Creatinine 0.96 Glucose 105 H Calcium 9.0 Medications Administered Current Inpatient Medications Acetaminophen (Acetaminophen 325 Mg Tab) 650 mg PO Q4H PRN PRN Reason: MILD Pain (Scale 1,2,3) Stop: 08/27/23 06:28 Last Admin: 08/02/23 10:16 Dose: 650 mg Aspirin (Aspirin 81 Mg Ectab) 81 [facility] Stop: 08/27/23 08:59 Last Admin: 08/02/23 08:20 Dose: 81 mg Atorvastatin Calcium (Atorvastatin 40 Mg Tab) 80 mg PO QAM [facility] Stop: 08/27/23 08:59 Last Admin: 08/02/23 08:21 Dose: 80 mg Buspirone HCl (Buspirone 7.5 Mg Tab) 22.5 mg PO QID [facility] Stop: 08/27/23 12:59 Last Admin: 08/02/23 13:28 Dose: 22.5 mg Dextrose (Dextrose 50% 50 Ml Syringe) 25 - 50 ml IV UD PRN; Protocol PRN Reason: Hypoglycemia Protocol Stop: 08/27/23 10:09 Dicyclomine HCl (Dicyclomine Hcl 20 Mg Tab) 20 mg PO QID PRN PRN Reason: IBS Stop: 08/27/23 08:43 Last Admin: 08/01/23 20:38 Dose: 20 mg Enoxaparin Sodium (Enoxaparin Inj 40 Mg/0.4 Ml Syr) 40 mg SQ HS STEPHAN Stop: 08/27/23 20:59 Last Admin: 08/01/23 20:36 Dose: 40 mg Ergocalciferol (Ergocalciferol 50,000 Units 1250 Mcg Cap) 50,000 units PO Fr@0900 [facility] Stop: 08/29/23 08:59 Last Admin: 07/30/23 08:09 Dose: 50,000 units Gabapentin (Gabapentin 300 Mg Cap) 300 mg PO BID [facility] Stop: 08/29/23 13:29 Last Admin: 08/02/23 08:22 Dose: 300 mg Glucagon (Glucagon For Inj 1 Mg Vial) 1 mg SQ UD PRN; Protocol PRN Reason: Hypoglycemia Protocol Stop: 08/27/23 10:09 Glucose (Glucose 40% Gel 15 Gm Tube) 15 - 30 gm PO UD PRN; Protocol PRN Reason: Hypoglycemia Protocol Stop: 08/27/23 10:09 Glucose (Glucose 10 Tab/Tube) 4 - 8 tab PO UD PRN; Protocol PRN Reason: Hypoglycemia Treatment Stop: 08/27/23 10:09 Hydromorphone HCl (Hydromorphone Inj 0.5 Mg/0.5 Ml Syr) 0.5 mg IV Q4H PRN PRN Reason: Severe Pain (7,8,9,10) Stop: 08/13/23 13:25 Last Admin: 08/02/23 10:56 Dose: 0.5 mg Hyoscyamine (Hyoscyamine Sulfate 0.125 Mg Tab) 0.125 mg PO QID PRN PRN Reason: Abdominal Pain Stop: 08/27/23 08:51 Last Admin: 07/29/23 19:47 Dose: 0.125 mg Insulin Aspart (Insulin Aspart Per Unit Charge) 0 units SC ACHS [facility] Stop: 08/27/23 11:29 Last Admin: 08/02/23 11:55 Dose: 2 units Lidocaine (Lidocaine 5% 1 Patch) 1 patch TD HS STEPHAN Stop: 08/29/23 20:59 Last Admin: 08/01/23 20:35 Dose: 1 patch Linaclotide (Linaclotide 145 Mcg Capsule) 290 mcg PO DAILY STEPHAN Stop: 08/28/23 14:09 Last Admin: 08/02/23 08:23 Dose: 290 mcg Lorazepam (Lorazepam 0.5 Mg Tab) 0.5 mg PO TID STEPHAN Stop: 08/27/23 08:59 Last Admin: 08/02/23 13:28 Dose: 0.5 mg Metoprolol Succinate (Metoprolol Succ 25mg Ext Rel Tab) 25 mg PO QAM STEPH[facility] Stop: 08/29/23 11:14 Last Admin: 08/02/23 08:23 Dose: 25 mg Miscellaneous (Carbohydrates For Hypoglycemia ) 15 - 30 gm PO UD PRN PRN Reason: Hypoglycemia Protocol Stop: 08/27/23 10:09 Miscellaneous (Remove Lidoderm Patch) 1 each N/A DAILY@0900 STEPHAN Stop: 08/29/23 08:59 Last Admin: 08/02/23 08:23 Dose: 1 each Suvorexant 20mg Tab ([Patient Own Med]) 1 each PO HS PRN PRN Reason: Sleep Stop: 08/29/23 20:59 Last Admin: 08/01/23 21:31 Dose: 20 mg Pantoprazole Sodium (Pantoprazole 40 Mg Tab) 40 mg PO BID [facility]; Protocol Stop: 08/28/23 20:59 Last Admin: 08/02/23 08:23 Dose: 40 mg Quetiapine Fumarate (Quetiapine Fumarate 300 Mg Tablet) 300 mg PO HS TSEPHAN Stop: 08/29/23 20:59 Last Admin: 08/01/23 20:38 Dose: 300 mg Sucralfate (Sucralfate 1 Gm/10 Ml Udc) 1 gm PO BID STEPHAN Stop: 08/28/23 20:59 Last Admin: 08/02/23 08:24 Dose: 1 gm Thyroid ([place] Thyroid 30 Mg Tab) 60 mg PO DAILY STEPHAN Stop: 08/28/23 08:59 Last Admin: 08/02/23 08:24 Dose: 60 mg Ticagrelor (Ticagrelor 90 Mg Tab) 90 mg PO BID STEPHAN Stop: 08/27/23 20:59 Last Admin: 08/02/23 08:24 Dose: 90 mg Tramadol HCl (Tramadol Hcl 50 Mg Tablet) 50 mg PO Q4H PRN PRN Reason: Moderate Pain (4,5,6) Stop: 08/28/23 07:33 Last Admin: 08/02/23 09:14 Dose: 50 mg
[2023-08-02] MEDS: SUVOREXANT 20 MG PO PRN (20:58)
[2023-08-02] MEDS: LIDOCAINE 5% 1 PATCH TD SCH (21:04)
[2023-08-02] MEDS: QUEtiapine FUMARATE 300 MG TABLET PO SCH (21:05)
[2023-08-03] MEDS: HYDROmorphone INJ 0.5 MG/0.5 ML SYR IV PRN ×4 (04:57→20:36)
[2023-08-03 05:32] LABS: BUN Creatinine Ratio 24.4 (10-20); Calcium 8.9 mg/dl (8.6-10.3); Creatinine Clr Calc Pharmacy 65.9 ml/min; Est GFR (African American) 85.7 ml/min; Est GFR (Non-African American) 73.9 ml/min; Potassium 3.9 mmol/L (3.5-5.1)
[2023-08-03 06:15] LABS: Basophils # (auto) 0.05 K/uL (0.00-0.20); Basophils % (auto) 0.6 %; Eosinophils # (auto) 0.12 K/uL (0.00-0.50); Eosinophils % (auto) 1.4 %; Hematocrit (blood only) 37.9 % (37.0-47.0); Hemoglobin 12.6 g/dl (12.0-16.0); Immature Granulocytes # (auto) 0.04 K/uL (0.01-0.20); Immature Granulocytes % (auto) 0.5 %; Lymphocytes # (auto) 2.95 K/uL (1.20-3.40); Lymphocytes % (auto) 33.8 %; Mean Corpuscular Hemoglobin 28.3 pg (25.0-34.0); Mean Corpuscular Hgb Conc 33.2 g/dL (32.0-36.0); Mean Platelet Volume 10.7 fL (9.4-12.4); Monocytes # (auto) 0.78 K/uL (0.11-0.59); Monocytes % (auto) 8.9 %; Neutrophils # (auto) 4.78 K/uL (1.40-6.50); Neutrophils % (auto) 54.8 %; Platelet Count 224 K/uL (130-400); Platelet Estimate Normal (Normal); RDW Coefficient of Variation 15.1 % (11.5-14.5); RDW Standard Deviation 46.7 fL (36.4-46.3); Red Blood Count 4.46 M/uL (4.20-5.40); White Blood Count 8.72 K/ul (4.8-10.8)
[2023-08-03] MEDS: traMADol HCL 50 MG TABLET PO PRN ×3 (06:39→19:36)
[2023-08-03] MEDS: ACETAMINOPHEN 325 MG TAB PO PRN (07:45)
[2023-08-03] MEDS: INSULIN ASPART PER UNIT CHARGE SC SCH ×4 (08:29→21:09)
[2023-08-03] MEDS: LORazepam 0.5 MG TAB PO SCH ×3 (08:31→20:26)
[2023-08-03] MEDS: GABAPENTIN 300 MG CAP PO SCH ×2 (08:35→20:24)
[2023-08-03] MEDS: ASPIRIN 81 MG ECTAB PO SCH (08:36)
[2023-08-03] MEDS: busPIRone 7.5 MG TAB PO SCH ×4 (08:36→20:22)
[2023-08-03] MEDS: METOPROLOL SUCC 25MG EXT REL TAB PO SCH (08:36)
[2023-08-03] MEDS: PANTOprazole 40 MG TAB PO SCH ×2 (08:37→20:25)
[2023-08-03] MEDS: ARMOUR THYROID 30 MG TAB PO SCH (08:37)
[2023-08-03] MEDS: ATORVASTATIN 40 MG TAB PO SCH (08:37)
[2023-08-03] MEDS: LINACLOTIDE 145 MCG CAPSULE PO SCH (08:37)
[2023-08-03] MEDS: SUCRALFATE 1 GM/10 ML UDC PO SCH ×2 (08:38→20:24)
[2023-08-03] MEDS: TICAGRELOR 90 MG TAB PO SCH ×2 (08:38→20:23)
--- NOTE | 2023-08-03 11:09 | Hospitalist Progress Note ---
Date of Service August 03, 2023 Assessment & Plan (1) Acute myocardial infarction involving right coronary artery: Plan: s/p TOMMIE to RCA occlusion with resolution of chest pain and symptoms on 07/28 Echo: Mild concentric LVH, no regional wall motion abnormalities, LV systolic function is normal with EF 55 to 60%, grade 1 diastolic dysfunction, and there is no significant valvular disease Cont DAPT with aspirin and ticagrelor, atorvastatin 80mg daily, metoprolol tartrate 12.5mg PO BID. Appreciate cardiology input and recommendation (2) Abdominal pain: Plan: Acute on chronic abdominal discomfort and pain , diarrhea following travel to [place] in April of this year Stool PCR negative C. difficile - ordered GI was consulted for help with working up this pain. She has a long-standing h/o IBS and sees [facility] for this for many years. Added gabapentin to se if this helps the femoral neuralgia post procedure. Unfortunately pt continues to have significant pain. Stool pcr - negative, H.pylori antigen negative and Giardia antigen pending. Pt does report loose stools lately (since being in [facility]). Acute intra-abdominal hemorrhage involving cardiac catheterization site around right common femoral artery Initial CT abd pelvis on 07/28/2023 reveals trace hemorrhage anterior to the common femoral vessels consistent with expected postcatheterization changes. Pain continued and a repeat CT scan showed: Acute hemorrhage anterior to the right common femoral artery tracks along the external iliac vessels into the right retroperitoneum and dependent pelvis, possibly secondary to recent cardiac catheterization. Focal hematoma measures up to 4 cm(2.8 x 2.3 x 3.8 cm).Stable low-density bilateral adrenal gland nodules. These favor benign adenomas. Hemoglobin remains stable Will continue with the current DAPT treatment, lovenox on hold Discussed w/ cardiology - Dr. 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 Plan for evaluation by interventional cardiology Dr. Leahy Cont. pain control (3) Bradycardia: Plan: Transient third degree heart block related to ischemia. Currently in NSR after catheterization. Cont monitoring on telemetry. (4) Infiltrate of both lungs present on imaging study: Plan: patient does report a cough for two weeks and some chills with a generalized unwell feeling prior to arrival. Although this may just be an atypical presentation of pulmonary edema, she is not fluid overloaded and with symptoms, Rocephin/azithromycin started empirically. Blood cultures are preliminarily negative and she is not coughing, Procalcitonin is negative. Abx were stopped. Consider repeat CXR in 4 weeks to ensure resolution of infiltrates. (5) Irritable bowel syndrome: Plan: Continued Levsin and Bentyl PRN and daily Linzess per home regimen. Will put linzess on hold as pt w/ watery diarrhea. Pt reports being on her meds for years and never having loose stools like this. Reports loose stools recently (since being in [facility]). Stool pcr - negative c. diff - ordered H. pylori antigen negative, Giardia antigen pending (6) Osteoporosis: Plan: Chronic, stable. Cont prolia per home regimen. (7) Anxiety: Plan: Chronic, stable. Managed by Dr. Majano (psychiatry). Cont Buspar, ativan, seroquel and Belsomra per home regimen. (8) Vitamin D insufficiency: Plan: Cont home supplementation weekly (9) DMII (diabetes mellitus, type 2): Plan: chronic, stable. Repeat A1C reflects good control at 6.1. Hold glipizide while inpatient. Cont with insulin coverage while inpatient. (10) Hypothyroidism: Plan: Chronic, stable. Repeat TSH reflects good control. Cont [place] Thyroid 60mg daily per home regimen. (11) Adrenal nodule: Plan: per outpatient PCP. DVT prophy-Lovenox currently on hold pending further eval w/ intervent. cardiology Full Code Dispo-PCU Admission and Anticipated Discharge Date Admission Date: July 28, 2023 Subjective Pt seen in follow up of acute RCA occlusion status post drug-eluting stent placed 07/28. Continues to have pain involving the right lower abdomen and inguinal area -> repeat CT abd/pelvis obtained yesterday - hematoma noted and discussed today w/ cardiology (Dr. Moon) - will obtain arterial US Hgb has been stable Pt denies any chest pain, palpitations or shortness of breath. No dizziness or lightheadedness. Review of Systems Review of Systems: All systems reviewed & are unremarkable except as noted in Subjective Physical Exam Physical Exam: CONSTITUTIONAL: WN/WD, in NAD EYES: normal conjunctivae, no scleral icterus ENT: external ear and nose normal, MMM NECK:supple RESPIRATORY: clear to auscultation bilaterally, no crackles, rales or wheezes, normal respiratory effort CARDIOVASCULAR: regular rate and rhythm, no murmurs, gallops or rubs, no JVD, no peripheral edema CHEST: inspection of chest was normal GASTROINTESTINAL: normal bowel sounds, soft, TTP in right lower abd. SKIN: warm and dry NEURO/PSYCH:awake alert oriented, answers appropriately, normal speech, moves extremities Results & Data Results & Data Vital Signs (Past 12 Hours) Vital Signs Temp Pulse Pulse Resp BP BP Pulse Ox 08/03/23 08:00 75 08/03/23 07:07 36.8 C 70 17 113/71 96 08/03/23 04:00 37.1 C 82 16 133/66 94 08/03/23 00:33 76 18 08/03/23 00:33 127/64 94 08/03/23 00:00 71 15 08/03/23 00:00 36.7 C 08/03/23 00:00 73 O2 Del Method 08/03/23 08:00 08/03/23 07:07 Room Air 08/03/23 04:00 Room Air 08/03/23 00:33 08/03/23 00:33 Room Air 08/03/23 00:00 08/03/23 00:00 08/03/23 00:00 Laboratory Results 08/03/23 08/03/23 08/03/23 Range/Units 07:35 04:42 04:42 WBC 8.72 (4.8-10.8) K/ul RBC 4.46 (4.20-5.40) M/uL Hgb 12.6 (12.0-16.0) g/dl Hct 37.9 (37.0-47.0) % MCV 85.0 (80.0-100.0) fL MCH 28.3 (25.0-34.0) pg MCHC 33.2 (32.0-36.0) g/dL RDW Std Deviation 46.7 H (36.4-46.3) fL RDW Coeff of Sharla 15.1 H (11.5-14.5) % Plt Count 224 (130-400) K/uL MPV 10.7 (9.4-12.4) fL Immature Gran % (Auto) 0.5 % Neut % (Auto) 54.8 % Lymph % (Auto) 33.8 % [place] % (Auto) 8.9 % Eos % (Auto) 1.4 % Baso % (Auto) 0.6 % Neut # (Auto) 4.78 (1.40-6.50) K/uL Lymph # (Auto) 2.95 (1.20-3.40) K/uL [place] # (Auto) 0.78 H (0.11-0.59) K/uL Eos # (Auto) 0.12 (0.00-0.50) K/uL Baso # (Auto) 0.05 (0.00-0.20) K/uL Immature Gran # (Auto) 0.04 (0.01-0.20) K/uL Platelet Estimate Normal (Normal) Sodium 137 (136-145) mmol/L Potassium 3.9 (3.5-5.1) mmol/L Chloride 108 H (98-107) mmol/L Carbon Dioxide 23 (21-32) mmol/L Anion Gap 6 (3-11) BUN 21 (6-23) mg/dl Creatinine 0.86 (0.6-1.2) mg/dl Est Cr Clr Drug Dosing 65.9 ml/min Est GFR ( Amer) 85.7 ml/min Est GFR (Non-Af Amer) 73.9 ml/min BUN/Creatinine Ratio 24.4 H (10-20) Glucose 110 H (70-99(Fasting)) mg/dl POC Glucose 114 H (70-99) mg/dl Calcium 8.9 (8.6-10.3) mg/dl Magnesium 2.0 (1.7-2.4) mg/dl 08/02/23 08/02/23 08/02/23 Range/Units 20:54 16:23 11:21 WBC (4.8-10.8) K/ul RBC (4.20-5.40) M/uL Hgb (12.0-16.0) g/dl Hct (37.0-47.0) % MCV (80.0-100.0) fL MCH (25.0-34.0) pg MCHC (32.0-36.0) g/dL RDW Std Deviation (36.4-46.3) fL RDW Coeff of Sharla (11.5-14.5) % Plt Count (130-400) K/uL MPV (9.4-12.4) fL Immature Gran % (Auto) % Neut % (Auto) % Lymph % (Auto) % [place] % (Auto) % Eos % (Auto) % Baso % (Auto) % Neut # (Auto) (1.40-6.50) K/uL Lymph # (Auto) (1.20-3.40) K/uL [place] # (Auto) (0.11-0.59) K/uL Eos # (Auto) (0.00-0.50) K/uL Baso # (Auto) (0.00-0.20) K/uL Immature Gran # (Auto) (0.01-0.20) K/uL Platelet Estimate (Normal) Sodium (136-145) mmol/L Potassium (3.5-5.1) mmol/L Chloride (98-107) mmol/L Carbon Dioxide (21-32) mmol/L Anion Gap (3-11) BUN (6-23) mg/dl Creatinine (0.6-1.2) mg/dl Est Cr Clr Drug Dosing ml/min Est GFR ( Amer) ml/min Est GFR (Non-Af Amer) ml/min BUN/Creatinine Ratio (10-20) Glucose (70-99(Fasting)) mg/dl POC Glucose 113 H 132 H 137 H (70-99) mg/dl Calcium (8.6-10.3) mg/dl Magnesium (1.7-2.4) mg/dl Medications Administered Current Inpatient Medications Acetaminophen (Acetaminophen 325 Mg Tab) 650 mg PO Q4H PRN PRN Reason: MILD Pain (Scale 1,2,3) Stop: 08/27/23 06:28 Last Admin: 08/03/23 07:45 Dose: 650 mg Aspirin (Aspirin 81 Mg Ectab) [facility] Stop: 08/27/23 08:59 Last Admin: 08/03/23 08:36 Dose: 81 mg Atorvastatin Calcium (Atorvastatin 40 Mg Tab) 80 [facility] [place] [facility] Stop: 08/27/23 08:59 Last Admin: 08/03/23 08:37 Dose: 80 mg Buspirone HCl (Buspirone 7.5 Mg Tab) 22.5 mg PO QID [facility] Stop: 08/27/23 12:59 Last Admin: 08/03/23 08:36 Dose: 22.5 mg Dextrose (Dextrose 50% 50 Ml Syringe) 25 - 50 ml IV UD PRN; Protocol PRN Reason: Hypoglycemia Protocol Stop: 08/27/23 10:09 Dicyclomine HCl (Dicyclomine Hcl 20 Mg Tab) 20 mg PO QID PRN PRN Reason: IBS Stop: 08/27/23 08:43 Last Admin: 08/01/23 20:38 Dose: 20 mg Enoxaparin Sodium (Enoxaparin Inj 40 Mg/0.4 Ml Syr) 40 mg SQ HS STEPHAN Stop: 08/27/23 20:59 Last Admin: 08/01/23 20:36 Dose: 40 mg Ergocalciferol (Ergocalciferol 50,000 Units 1250 Mcg Cap) 50,000 units PO Fr@0900 [facility] Stop: 08/29/23 08:59 Last Admin: 07/30/23 08:09 Dose: 50,000 units Gabapentin (Gabapentin 300 Mg Cap) 300 mg PO BID [facility] Stop: 08/29/23 13:29 Last Admin: 08/03/23 08:35 Dose: 300 mg Glucagon (Glucagon For Inj 1 Mg Vial) 1 mg SQ UD PRN; Protocol PRN Reason: Hypoglycemia Protocol Stop: 08/27/23 10:09 Glucose (Glucose 40% Gel 15 Gm Tube) 15 - 30 gm PO UD PRN; Protocol PRN Reason: Hypoglycemia Protocol Stop: 08/27/23 10:09 Glucose (Glucose 10 Tab/Tube) 4 - 8 tab PO UD PRN; Protocol PRN Reason: Hypoglycemia Treatment Stop: 08/27/23 10:09 Hydromorphone HCl (Hydromorphone Inj 0.5 Mg/0.5 Ml Syr) 0.5 mg IV Q4H PRN PRN Reason: Severe Pain (7,8,9,10) Stop: 08/13/23 13:25 Last Admin: 08/03/23 08:31 Dose: 0.5 mg Hyoscyamine (Hyoscyamine Sulfate 0.125 Mg Tab) 0.125 mg PO QID PRN PRN Reason: Abdominal Pain Stop: 08/27/23 08:51 Last Admin: 07/29/23 19:47 Dose: 0.125 mg Insulin Aspart (Insulin Aspart Per Unit Charge) 0 units SC ACHS [facility] Stop: 08/27/23 11:29 Last Admin: 08/03/23 08:29 Dose: Not Given Lidocaine (Lidocaine 5% 1 Patch) 1 patch TD HS STEPHAN Stop: 08/29/23 20:59 Last Admin: 08/02/23 21:04 Dose: 1 patch Linaclotide (Linaclotide 145 Mcg Capsule) 290 mcg PO DAILY [facility] Stop: 08/28/23 14:09 Last Admin: 08/03/23 08:37 Dose: 290 mcg Lorazepam (Lorazepam 0.5 Mg Tab) 0.5 mg PO TID [facility]PH[facility] Stop: 08/27/23 08:59 Last Admin: 08/03/23 08:31 Dose: 0.5 mg Metoprolol Succinate (Metoprolol Succ 25mg Ext Rel Tab) 25 mg PO QAM [facility] Stop: 08/29/23 11:14 Last Admin: 08/03/23 08:36 Dose: 25 mg Miscellaneous (Carbohydrates For Hypoglycemia ) 15 - 30 gm PO UD PRN PRN Reason: Hypoglycemia Protocol Stop: 08/27/23 10:09 Miscellaneous (Remove Lidoderm Patch) 1 each N/A DAILY@0900 [facility] Stop: 08/29/23 08:59 Last Admin: 08/03/23 08:38 Dose: 1 each Suvorexant 20mg Tab ([Patient Own Med]) 1 each PO HS PRN PRN Reason: Sleep Stop: 08/29/23 20:59 Last Admin: 08/02/23 20:58 Dose: 20 mg Pantoprazole Sodium (Pantoprazole 40 Mg Tab) 40 mg PO BID STEPH[facility]; Protocol Stop: 08/28/23 20:59 Last Admin: 08/03/23 08:37 Dose: 40 mg Quetiapine Fumarate (Quetiapine Fumarate 300 Mg Tablet) 300 mg PO HS STEPHAN Stop: 08/29/23 20:59 Last Admin: 08/02/23 21:05 Dose: 300 mg Sucralfate (Sucralfate 1 Gm/10 Ml Udc) 1 gm PO BID [facility] Stop: 08/28/23 20:59 Last Admin: 08/03/23 08:38 Dose: 1 gm Thyroid ([place] Thyroid 30 Mg Tab) 60 mg PO DAILY STEPHAN Stop: 08/28/23 08:59 Last Admin: 08/03/23 08:37 Dose: 60 mg Ticagrelor (Ticagrelor 90 Mg Tab) 90 mg PO BID [facility] Stop: 08/27/23 20:59 Last Admin: 08/03/23 08:38 Dose: 90 mg Tramadol HCl (Tramadol Hcl 50 Mg Tablet) 50 mg PO Q4H PRN PRN Reason: Moderate Pain (4,5,6) Stop: 08/28/23 07:33 Last Admin: 08/03/23 10:55 Dose: 50 mg
--- NOTE | 2023-08-03 14:34 | Ultrasound Report ---
US arterial duplex LE RT HISTORY: 57 years-old Female hematoma, post cath, r/o pseudoaneurysm right groin hematoma with possi ble pseudoaneurysm COMPARISON: CT abdomen and pelvis 08/02/2023 TECHNIQUE: Multiple real-time sonographic images of the right groin vascular structures were obtained assessing grayscale appearance, color and spectral flow FINDINGS: A pseudoaneurysm involving the common femoral artery measures 2.8 x 2.5 cm with 7 mm stalk communicat ing with the common femoral artery. Peak systolic velocities within the common femoral artery measure up to 147 cm/s. Waveforms of the pseudoaneurysm measures up to 451 cm/s. Patent common femoral vein and artery. 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 ACT 112: Negative or not required by law. The above report was generated using voice recognition software. It may contain grammatical, syntax o r spelling errors. Electronically signed by: Jose Stahl M.D. 08/03/2023 2:33 PM
[2023-08-03] MEDS ORDERED: HYDROmorphone INJ 1 MG/ML SYRINGE IV STA (16:11)
--- NOTE | 2023-08-03 18:04 | Cardiology Progress Note ---
Date of Service August 03, 2023 Assessment & Plan (1) Pseudoaneurysm: (2) Acute myocardial infarction involving right coronary artery: (3) Dyslipidemia: (4) Abdominal pain: Plan Results of arterial duplex discussed with patient and at bedside. Images reviewed with interventional cardiology. Patient scheduled for thrombin injection in a.m. Continue current cardiovascular medications. Admission and Anticipated Discharge Date Admission Date: July 28, 2023 Subjective Patient seen and examined at the bedside. Arterial duplex demonstrated 2.8 cm right sided femoral pseudoaneurysm. Hematoma noted on CT. Patient with ongoing left inguinal and left lower quadrant abdominal discomfort. Review of Systems Review of Systems: All systems reviewed & are unremarkable except as noted in Subjective Physical Exam Constitutional: well developed and well nourished; no acute distress Respiratory: no respiratory distress, no labored breathing and no retractions Auscultation: no crackles, no rales, no rhonchi and no wheezes Cardiovascular: Rate/Rhythm: regular rate and regular rhythm Heart Sounds: normal S1 and normal S2; no murmur Vessels: femoral pulses present and radial pulses present; no JVD and no carotid bruit Gastrointestinal (Abdomen): Inspection/Auscultation: normal bowel sounds; abdomen not distended Percussion/Palpation: + abdomen tender (Right lower quadrant, and right inguinal discomfort); no guarding and abdomen not rigid Neurologic: CN's II-XI intact bilaterally and moves all extremities; no focal motor deficits Results & Data Vital Signs (Past 12 Hours) Vital Signs Temp Pulse Pulse Pulse Resp BP Pulse Ox 08/03/23 15:38 36.6 C 61 18 110/70 98 08/03/23 11:42 36.4 C L 65 18 98/65 L 97 08/03/23 08:00 75 08/03/23 07:07 36.8 C 70 17 113/71 96 O2 Del Method 08/03/23 15:38 Room Air 08/03/23 11:42 Room Air 08/03/23 08:00 08/03/23 07:07 Room Air Laboratory Results CBC 08/03/23 Range/Units 04:42 WBC 8.72 (4.8-10.8) K/ul RBC 4.46 (4.20-5.40) M/uL Hgb 12.6 (12.0-16.0) g/dl Hct 37.9 (37.0-47.0) % Plt Count 224 (130-400) K/uL Neut # (Auto) 4.78 (1.40-6.50) K/uL Lymph # (Auto) 2.95 (1.20-3.40) K/uL [place] # (Auto) 0.78 H (0.11-0.59) K/uL Eos # (Auto) 0.12 (0.00-0.50) K/uL Baso # (Auto) 0.05 (0.00-0.20) K/uL Comprehensive Metabolic Panel 08/03/23 Range/Units 04:42 Sodium 137 (136-145) mmol/L Potassium 3.9 (3.5-5.1) mmol/L Chloride 108 H (98-107) mmol/L Carbon Dioxide 23 (21-32) mmol/L BUN 21 (6-23) mg/dl Creatinine 0.86 (0.6-1.2) mg/dl Glucose 110 H (70-99(Fasting)) mg/dl Calcium 8.9 (8.6-10.3) mg/dl Intake and Output 08/03/23 08/03/23 08/03/23 06:59 14:59 22:59 Intake Total 200 / 200 Balance 200 / 200 Intake: Oral 200 / 200
[2023-08-03] MEDS: ADVANCED PROBIOTIC 1250 MG CAPSULE PO SCH (18:21)
[2023-08-03] MEDS: SUVOREXANT 20 MG PO PRN (20:22)
[2023-08-03] MEDS: QUEtiapine FUMARATE 300 MG TABLET PO SCH (20:23)
[2023-08-03] MEDS: LIDOCAINE 5% 1 PATCH TD SCH (20:23)
[2023-08-04 06:06] LABS: Hemoglobin 12.7 g/dl (12.0-16.0); Mean Corpuscular Hemoglobin 28.2 pg (25.0-34.0); Mean Corpuscular Hgb Conc 33.4 g/dL (32.0-36.0); Mean Corpuscular Volume 84.4 fL (80.0-100.0); Mean Platelet Volume 10.1 fL (9.4-12.4); Platelet Count 261 K/uL (130-400); RDW Coefficient of Variation 14.8 % (11.5-14.5); RDW Standard Deviation 45.4 fL (36.4-46.3); White Blood Count 7.91 K/ul (4.8-10.8)
[2023-08-04 06:25] LABS: Creatinine Clr Calc Pharmacy 66.7 ml/min; Est GFR (African American) 86.9 ml/min; Potassium 3.6 mmol/L (3.5-5.1)
[2023-08-04] MEDS: HYDROmorphone INJ 0.5 MG/0.5 ML SYR IV PRN ×4 (07:42→22:00)
[2023-08-04] MEDS ORDERED: THROMBIN 5000 UNITS KIT ONE (08:01)
[2023-08-04] MEDS ORDERED: LIDOCAINE 1% LOCAL 20 ML VIAL ONE (08:06)
--- NOTE | 2023-08-04 08:09 | Hospitalist Progress Note ---
Date of Service August 04, 2023 Assessment & Plan (1) Acute myocardial infarction involving right coronary artery: Plan: s/p TOMMIE to RCA occlusion with resolution of chest pain and symptoms on 07/28 Echo: Mild concentric LVH, no regional wall motion abnormalities, LV systolic function is normal with EF 55 to 60%, grade 1 diastolic dysfunction, and there is no significant valvular disease Cont DAPT with aspirin and ticagrelor, atorvastatin 80mg daily, metoprolol tartrate 12.5mg PO BID. Appreciate cardiology input and recommendation (2) Abdominal pain: Plan: Acute on chronic abdominal discomfort and pain , diarrhea following travel to [facility] in April of this year Stool PCR negative C. difficile - ordered GI was consulted for help with working up this pain. She has a long-standing h/o IBS and sees [facility] for this for many years. Added gabapentin to se if this helps the femoral neuralgia post procedure. Unfortunately pt continues to have significant pain. Stool pcr - negative, H.pylori antigen negative and Giardia antigen negative. Pt does report loose stools lately (since being in [facility]). Stopped linzess - no stool today Acute intra-abdominal hemorrhage involving cardiac catheterization site around right common femoral artery Initial CT abd pelvis on 07/28/2023 reveals trace hemorrhage anterior to the common femoral vessels consistent with expected postcatheterization changes. Pain continued and a repeat CT scan showed: Acute hemorrhage anterior to the right common femoral artery tracks along the external iliac vessels into the right retroperitoneum and dependent pelvis, possibly secondary to recent cardiac catheterization. Focal hematoma measures up to 4 cm(2.8 x 2.3 x 3.8 cm).Stable low-density bilateral adrenal gland nodu les. These favor benign adenomas. Hemoglobin remains stable Will continue with the current DAPT treatment, lovenox on hold Discussed w/ cardiology - Dr. 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 Plan for evaluation by interventional cardiology Dr. Leahy - plan for thrombin injection today (08/04/2023) Cont. pain control (3) Bradycardia: Plan: Transient third degree heart block related to ischemia. Currently in NSR after catheterization. Cont monitoring on telemetry. (4) Infiltrate of both lungs present on imaging study: Plan: patient does report a cough for two weeks and some chills with a generalized unwell feeling prior to arrival. Although this may just be an atypical presentation of pulmonary edema, she is no t fluid overloaded and with symptoms, Rocephin/azithromycin started empirically. Blood cultures are preliminarily negative and she is not coughing, Procalcitonin is negative. Abx were stopped. Consider repeat CXR in 4 weeks to ensure resolution of infiltrates. (5) Irritable bowel syndrome: Plan: Continued Levsin and Bentyl PRN and daily Linzess per home regimen. Put linzess on hold as pt w/ watery diarrhea, now no BM today (08/04) Pt reports being on her meds for years and never having loose stools like this. Reports loose stools recently (since being in [facility]). Stool pcr - negative c. diff - ordered H. pylori antigen negative, Giardia antigen negative Linzess on hold now, no BM today (08/04) (6) Osteoporosis: Plan: Chronic, stable. Cont prolia per home regimen. (7) Anxiety: Plan: Chronic, stable. Managed by Dr. Majano (psychiatry). Cont Buspar, ativan, seroquel and Belsomra per home regimen. (8) Vitamin D insufficiency: Plan: Cont home supplementation weekly (9) DMII (diabetes mellitus, type 2): Plan: chronic, stable. Repeat A1C reflects good control at 6.1. Hold glipizide while inpatient. Cont with insulin coverage while inpatient. (10) Hypothyroidism: Plan: Chronic, stable. Repeat TSH reflects good control. Cont [place] Thyroid 60mg daily per home regimen. (11) Adrenal nodule: Plan: per outpatient PCP. DVT prophy-Lovenox currently on hold pending further eval w/ intervent. cardiology Full Code Dispo-PCU Admission and Anticipated Discharge Date Admission Date: July 28, 2023 Subjective Pt seen in follow up of acute RCA occlusion status post drug-eluting stent placed 07/28. Continues to have pain involving the right lower abdomen and inguinal area -> repeat CT abd/pelvis obtained and showed hematoma - discussed w/ cardiology (Dr. Moon) - and obtained arterial US which shows pseudoaneurysm - interventional cardiology contacted and plan for thrombin injection today (Dr. Leahy) Hgb has been stable Pt denies any chest pain, palpitations or shortness of breath. No dizziness or lightheadedness. Review of Systems Review of Systems: All systems reviewed & are unremarkable except as noted in Subjective Physical Exam Physical Exam: CONSTITUTIONAL: WN/WD, in NAD EYES: normal conjunctivae, no scleral icterus ENT: external ear and nose normal, MMM NECK:supple RESPIRATORY: clear to auscultation bilaterally, no crackles, rales or wheezes, normal respiratory effort CARDIOVASCULAR: regular rate and rhythm, no murmurs, gallops or rubs, no JVD, no peripheral edema CHEST: inspection of chest was normal GASTROINTESTINAL: normal bowel sounds, soft, TTP in right lower abd. SKIN: warm and dry NEURO/PSYCH:awake alert oriented, answers appropriately, normal speech, moves extremities Results & Data Results & Data Vital Signs (Past 12 Hours) Vital Signs Temp Pulse Pulse Resp BP Pulse Ox O2 Del Method 08/04/23 03:27 36.8 C 76 16 116/73 94 Room Air 08/03/23 23:15 37.2 C 67 16 103/65 96 Room Air 08/03/23 23:33 67 Laboratory Results 08/04/23 08/04/23 08/04/23 Range/Units 07:47 05:35 05:35 WBC 7.91 (4.8-10.8) K/ul RBC 4.50 (4.20-5.40) M/uL Hgb 12.7 (12.0-16.0) g/dl Hct 38.0 (37.0-47.0) % MCV 84.4 (80.0-100.0) fL MCH 28.2 (25.0-34.0) pg MCHC 33.4 (32.0-36.0) g/dL RDW Std Deviation 45.4 (36.4-46.3) fL RDW Coeff of Sharla 14.8 H (11.5-14.5) % Plt Count 261 (130-400) K/uL MPV 10.1 (9.4-12.4) fL Sodium 138 (136-145) mmol/L Potassium 3.6 (3.5-5.1) mmol/L Chloride 110 H (98-107) mmol/L Carbon Dioxide 20 L (21-32) mmol/L Anion Gap 8 (3-11) BUN 17 (6-23) mg/dl Creatinine 0.85 (0.6-1.2) mg/dl Est Cr Clr Drug Dosing 66.7 ml/min Est GFR ( Amer) 86.9 ml/min Est GFR (Non-Af Amer) 75.0 ml/min BUN/Creatinine Ratio 20.0 (10-20) Glucose 102 H (70-99(Fasting)) mg/dl POC Glucose 116 H (70-99) mg/dl Calcium 9.0 (8.6-10.3) mg/dl Magnesium 2.0 (1.7-2.4) mg/dl Stool H. pylori Ag Giardia Antigen 08/03/23 08/03/23 08/03/23 Range/Units 20:43 17:12 11:52 WBC (4.8-10.8) K/ul RBC (4.20-5.40) M/uL Hgb (12.0-16.0) g/dl Hct (37.0-47.0) % MCV (80.0-100.0) fL MCH (25.0-34.0) pg MCHC (32.0-36.0) g/dL RDW Std Deviation (36.4-46.3) fL RDW Coeff of Sharla (11.5-14.5) % Plt Count (130-400) K/uL MPV (9.4-12.4) fL Sodium (136-145) mmol/L Potassium (3.5-5.1) mmol/L Chloride (98-107) mmol/L Carbon Dioxide (21-32) mmol/L Anion Gap (3-11) BUN (6-23) mg/dl Creatinine (0.6-1.2) mg/dl Est Cr Clr Drug Dosing ml/min Est GFR ( Amer) ml/min Est GFR (Non-Af Amer) ml/min BUN/Creatinine Ratio (10-20) Glucose (70-99(Fasting)) mg/dl POC Glucose 132 H 112 H 142 H (70-99) mg/dl Calcium (8.6-10.3) mg/dl Magnesium (1.7-2.4) mg/dl Stool H. pylori Ag Giardia Antigen 07/31/23 07/31/23 Range/Units 11:46 11:46 WBC (4.8-10.8) K/ul RBC (4.20-5.40) M/uL Hgb (12.0-16.0) g/dl Hct (37.0-47.0) % MCV (80.0-100.0) fL MCH (25.0-34.0) pg MCHC (32.0-36.0) g/dL RDW Std Deviation (36.4-46.3) fL RDW Coeff of Sharla (11.5-14.5) % Plt Count (130-400) K/uL MPV (9.4-12.4) fL Sodium (136-145) mmol/L Potassium (3.5-5.1) mmol/L Chloride (98-107) mmol/L Carbon Dioxide (21-32) mmol/L Anion Gap (3-11) BUN (6-23) mg/dl Creatinine (0.6-1.2) mg/dl Est Cr Clr Drug Dosing ml/min Est GFR ( Amer) ml/min Est GFR (Non-Af Amer) ml/min BUN/Creatinine Ratio (10-20) Glucose (70-99(Fasting)) mg/dl POC Glucose (70-99) mg/dl Calcium (8.6-10.3) mg/dl Magnesium (1.7-2.4) mg/dl Stool H. pylori Ag SEE NOTE Giardia Antigen SEE NOTE Medications Administered Current Inpatient Medications Acetaminophen (Acetaminophen 325 Mg Tab) 650 mg PO Q4H PRN PRN Reason: MILD Pain (Scale 1,2,3) Stop: 08/27/23 06:28 Last Admin: 08/03/23 07:45 Dose: 650 mg Aspirin (Aspirin 81 Mg Ectab) 81 mg PO QAM [facility] Stop: 08/27/23 08:59 Last Admin: 08/03/23 08:36 Dose: 81 mg Atorvastatin Calcium (Atorvastatin 40 Mg Tab) 80 mg PO QAM [facility] Stop: 08/27/23 08:59 Last Admin: 08/03/23 08:37 Dose: 80 mg Buspirone HCl (Buspirone 7.5 Mg Tab) 22.5 mg PO QID [facility] Stop: 08/27/23 12:59 Last Admin: 08/03/23 20:22 Dose: 22.5 mg Dextrose (Dextrose 50% 50 Ml Syringe) 25 - 50 ml IV UD PRN; Protocol PRN Reason: Hypoglycemia Protocol Stop: 08/27/23 10:09 Dicyclomine HCl (Dicyclomine Hcl 20 Mg Tab) 20 mg PO QID PRN PRN Reason: IBS Stop: 08/27/23 08:43 Last Admin: 08/01/23 20:38 Dose: 20 mg Enoxaparin Sodium (Enoxaparin Inj 40 Mg/0.4 Ml Syr) 40 mg SQ HS [facility]PHAN Stop: 08/27/23 20:59 Last Admin: 08/01/23 20:36 Dose: 40 mg Ergocalciferol (Ergocalciferol 50,000 Units 1250 Mcg Cap) 50,000 units PO Fr@0900 STEPHAN Stop: 08/29/23 08:59 Last Admin: 07/30/23 08:09 Dose: 50,000 units Gabapentin (Gabapentin 300 Mg Cap) 300 mg PO BID [facility] Stop: 08/29/23 13:29 Last Admin: 08/03/23 20:24 Dose: 300 mg Glucagon (Glucagon For Inj 1 Mg Vial) 1 mg SQ UD PRN; Protocol PRN Reason: Hypoglycemia Protocol Stop: 08/27/23 10:09 Glucose (Glucose 40% Gel 15 Gm Tube) 15 - 30 gm PO UD PRN; Protocol PRN Reason: Hypoglycemia Protocol Stop: 08/27/23 10:09 Glucose (Glucose 10 Tab/Tube) 4 - 8 tab PO UD PRN; Protocol PRN Reason: Hypoglycemia Treatment Stop: 08/27/23 10:09 Hydromorphone HCl (Hydromorphone Inj 0.5 Mg/0.5 Ml Syr) 0.5 mg IV Q3H PRN PRN Reason: Severe Pain (7,8,9,10) Stop: 08/13/23 13:25 Last Admin: 08/04/23 07:42 Dose: 0.5 mg Hyoscyamine (Hyoscyamine Sulfate 0.125 Mg Tab) 0.125 mg PO QID PRN PRN Reason: Abdominal Pain Stop: 08/27/23 08:51 Last Admin: 07/29/23 19:47 Dose: 0.125 mg Insulin Aspart (Insulin Aspart Per Unit Charge) 0 units SC ACHS [facility] Stop: 08/27/23 11:29 Last Admin: 08/03/23 21:09 Dose: Not Given Lactobacillus Acidophilus (Advanced Probiotic 1250 Mg Capsule) 2 cap PO DAILY [facility] Stop: 09/02/23 14:59 Last Admin: 08/03/23 18:21 Dose: 2 cap Lidocaine (Lidocaine 5% 1 Patch) 1 patch TD HS STEPHAN Stop: 08/29/23 20:59 Last Admin: 08/03/23 20:23 Dose: 1 patch Linaclotide (Linaclotide 145 Mcg Capsule) 290 mcg PO DAILY [facility] Stop: 08/28/23 14:09 Last Admin: 08/03/23 08:37 Dose: 290 mcg Lorazepam (Lorazepam 0.5 Mg Tab) 0.5 mg PO TID [facility]PH[facility] Stop: 08/27/23 08:59 Last Admin: 08/03/23 20:26 Dose: 0.5 mg Metoprolol Succinate (Metoprolol Succ 25mg Ext Rel Tab) 25 mg PO QAM [facility] Stop: 08/29/23 11:14 Last Admin: 08/03/23 08:36 Dose: 25 mg Miscellaneous (Carbohydrates For Hypoglycemia ) 15 - 30 gm PO UD PRN PRN Reason: Hypoglycemia Protocol Stop: 08/27/23 10:09 Miscellaneous (Remove Lidoderm Patch) 1 each N/A DAILY@0900 STEPH[facility] Stop: 08/29/23 08:59 Last Admin: 08/03/23 08:38 Dose: 1 each Suvorexant 20mg Tab ([Patient Own Med]) 1 each PO HS PRN PRN Reason: Sleep Stop: 08/29/23 20:59 Last Admin: 08/03/23 20:22 Dose: 20 mg Pantoprazole Sodium (Pantoprazole 40 Mg Tab) 40 mg PO BID STEPHAN; Protocol Stop: 08/28/23 20:59 Last Admin: 08/03/23 20:25 Dose: 40 mg Quetiapine Fumarate (Quetiapine Fumarate 300 Mg Tablet) 300 mg PO HS STEPHAN Stop: 08/29/23 20:59 Last Admin: 08/03/23 20:23 Dose: 300 mg Sucralfate (Sucralfate 1 Gm/10 Ml Udc) 1 gm PO BID [facility]PH[facility] Stop: 08/28/23 20:59 Last Admin: 08/03/23 20:24 Dose: 1 gm Thyroid ([place] Thyroid 30 Mg Tab) 60 mg PO DAILY [facility] Stop: 08/28/23 08:59 Last Admin: 08/03/23 08:37 Dose: 60 mg Ticagrelor (Ticagrelor 90 Mg Tab) 90 mg PO BID [facility]PH[facility] Stop: 08/27/23 20:59 Last Admin: 08/03/23 20:23 Dose: 90 mg Tramadol HCl (Tramadol Hcl 50 Mg Tablet) 50 mg PO Q4H PRN PRN Reason: Moderate Pain (4,5,6) Stop: 08/28/23 07:33 Last Admin: 08/03/23 19:36 Dose: 50 mg
[2023-08-04] MEDS ORDERED: POTASSIUM CHLORIDE CRTAB 20 MEQ TABCR PO STA (08:10)
[2023-08-04] MEDS: PANTOprazole 40 MG TAB PO SCH ×2 (08:45→20:41)
[2023-08-04] MEDS: GABAPENTIN 300 MG CAP PO SCH ×2 (08:46→20:42)
[2023-08-04] MEDS: ASPIRIN 81 MG ECTAB PO SCH (08:46)
[2023-08-04] MEDS: METOPROLOL SUCC 25MG EXT REL TAB PO SCH (08:46)
[2023-08-04] MEDS: ARMOUR THYROID 30 MG TAB PO SCH (08:46)
[2023-08-04] MEDS: ATORVASTATIN 40 MG TAB PO SCH (08:46)
[2023-08-04] MEDS: TICAGRELOR 90 MG TAB PO SCH ×2 (08:47→21:01)
[2023-08-04] MEDS: SUCRALFATE 1 GM/10 ML UDC PO SCH ×2 (08:47→20:41)
[2023-08-04] MEDS: busPIRone 7.5 MG TAB PO SCH ×4 (08:48→20:42)
[2023-08-04] MEDS: ADVANCED PROBIOTIC 1250 MG CAPSULE PO SCH (08:48)
[2023-08-04] MEDS: LORazepam 0.5 MG TAB PO SCH ×3 (08:54→20:42)
[2023-08-04] MEDS: INSULIN ASPART PER UNIT CHARGE SC SCH ×4 (08:57→20:44)
--- NOTE | 2023-08-04 16:16 | Vascular Medicine ProgressNote ---
Date of Service August 04, 2023 Assessment & Plan (1) Pseudoaneurysm: Plan: Discussed ultrasound-guided pseudoaneurysm thrombin injection with patient including risk, benefits and alternatives. Patient willing to proceed. Procedure: Patient prepped and draped in standard sterile fashion Pseudoaneurysm including communicating neck identified under ultrasound Local anesthesia with 1% lidocaine A total of 3000 units of thrombin injected into the pseudoaneurysm sac Post injection minimal residual flow into area just above communicating stalk, remainder of pseudoaneurysm appeared thrombosed. No evidence of right PELLETIZER TENDER complications or flow compromise Summary: 1. Successful ultrasound-guided thrombin injection of right PELLETIZER TENDER pseudoaneurysm with minimal residual flow. Recommendations: Follow-up ultrasound tomorrow to reassess PELLETIZER TENDER and residual pseudoaneurysm flow Assuming no significant changes can follow-up as an outpatient with repeat ultrasound in 2 weeks. Admission and Anticipated Discharge Date Admission Date: July 28, 2023 Subjective Vascular medicine contacted regarding 2.8 cm pseudoaneurysm involving right PELLETIZER TENDER following cardiac cath for inferior CT 07/28/2023. 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 Moon decision made to proceed with thrombin injection of right PELLETIZER TENDER's pseudoaneurysm. Review of Systems Review of Systems: All systems reviewed & are unremarkable except as noted in HPI & below Physical Exam Constitutional: WD/WN, vitals as above Eyes: + anicteric sclerae Respiratory: normal respiratory effort Cardiovascular: Rate/Rhythm: regular rate Gastrointestinal (Abdomen): Percussion/Palpation: + abdomen tender and abdomen soft Skin: no rashes, warm and dry Psychiatric: A+Ox3, euthymic affect Results & Data Vital Signs (Past 12 Hours) Vital Signs Temp Pulse Pulse Resp BP Pulse Ox O2 Del Method 08/04/23 11:20 97.9 F 68 18 107/62 96 Room Air 08/04/23 08:00 80 08/04/23 08:42 99.7 F H 84 20 112/69 96 Room Air PG Care Time/CCT Total # of Minutes Spent Total Time Spent with Patient: Total time spent is greater than 50% in coordination of care (as documented) at patient's floor/unit and/or counseling patient: Coding Level of Care Code 96570 SUB INP/OBS CARE 3/50MIN Diagnoses Pseudoaneurysm I72.9
--- NOTE | 2023-08-04 16:21 | Ultrasound Report ---
US guide vascular access CLINICAL HISTORY: pseudoaneurysm. Preoperative ultrasound guidance provided for pseudoaneurysm evalua tion. COMPARISON STUDY: Right leg arterial Doppler study 08/03/2023. FINDINGS: There is again noted a pseudoaneurysm at the right common femoral artery. This appears to b e partially thrombosed. IMPRESSION: Ultrasound guidance provided for a partially thrombosed right common femoral artery pseu doaneurysm. ACT 112: Negative or not required by law. Electronically signed by: Stephan Callejas M.D. 08/04/2023 4:20 PM
[2023-08-04] MEDS: SUVOREXANT 20 MG PO PRN (20:38)
[2023-08-04] MEDS: QUEtiapine FUMARATE 300 MG TABLET PO SCH (20:41)
[2023-08-04] MEDS: LIDOCAINE 5% 1 PATCH TD SCH (20:41)
[2023-08-04] MEDS: traMADol HCL 50 MG TABLET PO PRN (21:01)
[2023-08-05 06:29] LABS: Hematocrit (blood only) 34.7 % (37.0-47.0); Hemoglobin 11.7 g/dl (12.0-16.0); Mean Corpuscular Hemoglobin 28.3 pg (25.0-34.0); Mean Corpuscular Hgb Conc 33.7 g/dL (32.0-36.0); Platelet Count 273 K/uL (130-400); RDW Coefficient of Variation 14.9 % (11.5-14.5); RDW Standard Deviation 45.5 fL (36.4-46.3); Red Blood Count 4.13 M/uL (4.20-5.40); White Blood Count 8.87 K/ul (4.8-10.8)
[2023-08-05 06:48] LABS: BUN Creatinine Ratio 27.6 (10-20); Calcium 9.2 mg/dl (8.6-10.3); Creatinine Clr Calc Pharmacy 74.6 ml/min; Est GFR (African American) 99.5 ml/min; Est GFR (Non-African American) 85.9 ml/min; Potassium 3.8 mmol/L (3.5-5.1)
[2023-08-05] MEDS: TICAGRELOR 90 MG TAB PO SCH ×2 (08:07→20:32)
[2023-08-05] MEDS: LORazepam 0.5 MG TAB PO SCH ×3 (08:07→20:28)
[2023-08-05] MEDS: METOPROLOL SUCC 25MG EXT REL TAB PO SCH (08:08)
[2023-08-05] MEDS: ARMOUR THYROID 30 MG TAB PO SCH (08:08)
[2023-08-05] MEDS: ASPIRIN 81 MG ECTAB PO SCH (08:08)
[2023-08-05] MEDS: ATORVASTATIN 40 MG TAB PO SCH (08:09)
[2023-08-05] MEDS: busPIRone 7.5 MG TAB PO SCH ×4 (08:09→20:31)
[2023-08-05] MEDS: ADVANCED PROBIOTIC 1250 MG CAPSULE PO SCH (08:09)
[2023-08-05] MEDS: GABAPENTIN 300 MG CAP PO SCH ×2 (08:09→20:33)
[2023-08-05] MEDS: PANTOprazole 40 MG TAB PO SCH ×2 (08:09→20:32)
[2023-08-05] MEDS: SUCRALFATE 1 GM/10 ML UDC PO SCH ×2 (08:10→20:32)
--- NOTE | 2023-08-05 08:19 | Hospitalist Progress Note ---
Date of Service August 05, 2023 Assessment & Plan (1) Acute myocardial infarction involving right coronary artery: Plan: s/p TOMMIE to RCA occlusion with resolution of chest pain and symptoms on 07/28 Echo: Mild concentric LVH, no regional wall motion abnormalities, LV systolic function is normal with EF 55 to 60%, grade 1 diastolic dysfunction, and there is no significant valvular disease Cont DAPT with aspirin and ticagrelor, atorvastatin 80mg daily, metoprolol tartrate 12.5mg PO BID. Appreciate cardiology input and recommendation (2) Abdominal pain: Plan: Acute on chronic abdominal discomfort and pain , diarrhea following travel to [facility] in April of this year Stool PCR negative C. difficile - ordered GI was consulted for help with working up this pain. She has a long-standing h/o IBS and sees [facility] for this for many years. Added gabapentin to se if this helps the femoral neuralgia post procedure. Unfortunately pt continues to have significant pain. Stool pcr - negative, H.pylori antigen negative and Giardia antigen negative. Pt does report loose stools lately (since being in [facility]). Stopped linzess - no stool today Acute intra-abdominal hemorrhage involving cardiac catheterization site around right common femoral artery Initial CT abd pelvis on 07/28/2023 reveals trace hemorrhage anterior to the common femoral vessels consistent with expected postcatheterization changes. Pain continued and a repeat CT scan showed: Acute hemorrhage anterior to the right common femoral artery tracks along the external iliac vessels into the right retroperitoneum and dependent pelvis, possibly secondary to recent cardiac catheterization. Focal hematoma measures up to 4 cm(2.8 x 2.3 x 3.8 cm).Stable low-density bilateral adrenal gland nodu les. These favor benign adenomas. Hemoglobin remains stable Will continue with the current DAPT treatment, lovenox on hold Discussed w/ cardiology - Dr. 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 Interventional cardiology Dr. Leahy contacted - pt is s/p thrombin injection yesterday (08/04/2023) Repeat art. US obtained today - Interval partial thrombosis of the persistent common femoral pseudoaneurysm. - Discussed w/ Dr. Leahy - recommends follow up in 2 weeks w/ repeat US. Pain likely secondary to some bleed noted on CT. Cont. pain control - will obtain pain management consult (3) Bradycardia: Plan: Transient third degree heart block related to ischemia. Currently in NSR after catheterization. Cont monitoring on telemetry. (4) Infiltrate of both lungs present on imaging study: Plan: patient does report a cough for two weeks and some chills with a generalized unwell feeling prior to arrival. Although this may just be an atypical presentation of pulmonary edema, she is not fluid overloaded and with symptoms, Rocephin/azithromycin started empirically. Blood cultures are preliminarily negative and she is not coughing, Procalcitonin is negative. Abx were stopped. Consider repeat CXR in 4 weeks to ensure resolution of infiltrates. (5) Irritable bowel syndrome: Plan: Continued Levsin and Bentyl PRN and daily Linzess per home regimen. Put linzess on hold as pt w/ watery diarrhea, now no BM today or yesterday () Pt reports being on her meds for years and never having loose stools like this. Reports loose stools recently (since being in [facility]). Stool pcr - negative c. diff - ordered H. pylori antigen negative, Giardia antigen negative Linzess on hold now, no BM () (6) Osteoporosis: Plan: Chronic, stable. Cont prolia per home regimen. (7) Anxiety: Plan: Chronic, stable. Managed by Dr. Majano (psychiatry). Cont Buspar, ativan, seroquel and Belsomra per home regimen. (8) Vitamin D insufficiency: Plan: Cont home supplementation weekly (9) DMII (diabetes mellitus, type 2): Plan: chronic, stable. Repeat A1C reflects good control at 6.1. Hold glipizide while inpatient. Cont with insulin coverage while inpatient. (10) Hypothyroidism: Plan: Chronic, stable. Repeat TSH reflects good control. Cont [place] Thyroid 60mg daily per home regimen. (11) Adrenal nodule: Plan: per outpatient PCP. DVT prophy-Lovenox currently on hold Full Code Dispo-PCU Admission and Anticipated Discharge Date Admission Date: July 28, 2023 Subjective Pt seen in follow up of acute RCA occlusion status post drug-eluting stent placed 07/28. Continues to have pain involving the right lower abdomen and inguinal area -> repeat CT abd/pelvis obtained and showed hematoma - discussed w/ cardiology (Dr. Moon) - and obtained arterial US which shows pseudoaneurysm - interventional cardiology contacted and pt is s/p thrombin injection yesterday (Dr. Leahy). Repeat art. US obtained and discussed w/ Dr. Leahy today Pt denies any chest pain, palpitations or shortness of breath. No dizziness or lightheadedness. Review of Systems Review of Systems: All systems reviewed & are unremarkable except as noted in Subjective Physical Exam Physical Exam: CONSTITUTIONAL: WN/WD, in NAD EYES: normal conjunctivae, no scleral icterus ENT: external ear and nose normal, MMM NECK:supple RESPIRATORY: clear to auscultation bilaterally, no crackles, rales or wheezes, normal respiratory effort CARDIOVASCULAR: regular rate and rhythm, no murmurs, gallops or rubs, no JVD, no peripheral edema CHEST: inspection of chest was normal GASTROINTESTINAL: normal bowel sounds, soft, + TTP in right lower abd. SKIN: warm and dry NEURO/PSYCH:awake alert oriented, answers appropriately, normal speech, moves extremities Results & Data Results & Data Vital Signs (Past 12 Hours) Vital Signs Temp Pulse Pulse Resp BP Pulse Ox O2 Del Method 08/05/23 07:33 36.8 C 77 16 111/72 96 Room Air 08/05/23 03:00 36.7 C 76 14 110/73 97 Room Air 08/05/23 00:00 69 08/04/23 23:00 36.9 C 67 16 114/75 94 Room Air Laboratory Results 08/05/23 08/05/23 08/04/23 Range/Units 05:51 05:51 20:18 WBC 8.87 (4.8-10.8) K/ul RBC 4.13 L (4.20-5.40) M/uL Hgb 11.7 L (12.0-16.0) g/dl Hct 34.7 L (37.0-47.0) % MCV 84.0 (80.0-100.0) fL MCH 28.3 (25.0-34.0) pg MCHC 33.7 (32.0-36.0) g/dL RDW Std Deviation 45.5 (36.4-46.3) fL RDW Coeff of Sharla 14.9 H (11.5-14.5) % Plt Count 273 (130-400) K/uL MPV 10.0 (9.4-12.4) fL Sodium 139 (136-145) mmol/L Potassium 3.8 (3.5-5.1) mmol/L Chloride 110 H (98-107) mmol/L Carbon Dioxide 22 (21-32) mmol/L Anion Gap 7 (3-11) BUN 21 (6-23) mg/dl Creatinine 0.76 (0.6-1.2) mg/dl Est Cr Clr Drug Dosing 74.6 ml/min Est GFR ( Amer) 99.5 ml/min Est GFR (Non-Af Amer) 85.9 ml/min BUN/Creatinine Ratio 27.6 H (10-20) Glucose 104 H (70-99(Fasting)) mg/dl POC Glucose 142 H (70-99) mg/dl Calcium 9.2 (8.6-10.3) mg/dl Magnesium 2.0 (1.7-2.4) mg/dl 08/04/23 08/04/23 Range/Units 16:49 11:43 WBC (4.8-10.8) K/ul RBC (4.20-5.40) M/uL Hgb (12.0-16.0) g/dl Hct (37.0-47.0) % MCV (80.0-100.0) fL MCH (25.0-34.0) pg MCHC (32.0-36.0) g/dL RDW Std Deviation (36.4-46.3) fL RDW Coeff of Sharla (11.5-14.5) % Plt Count (130-400) K/uL MPV (9.4-12.4) fL Sodium (136-145) mmol/L Potassium (3.5-5.1) mmol/L Chloride (98-107) mmol/L Carbon Dioxide (21-32) mmol/L Anion Gap (3-11) BUN (6-23) mg/dl Creatinine (0.6-1.2) mg/dl Est Cr Clr Drug Dosing ml/min Est GFR ( Amer) ml/min Est GFR (Non-Af Amer) ml/min BUN/Creatinine Ratio (10-20) Glucose (70-99(Fasting)) mg/dl POC Glucose 111 H 99 (70-99) mg/dl Calcium (8.6-10.3) mg/dl Magnesium (1.7-2.4) mg/dl Medications Administered Current Inpatient Medications Acetaminophen (Acetaminophen 325 Mg Tab) 650 mg PO Q4H PRN PRN Reason: MILD Pain (Scale 1,2,3) Stop: 08/27/23 06:28 Last Admin: 08/03/23 07:45 Dose: 650 mg Aspirin (Aspirin 81 Mg Ectab) 81 mg PO QAM [facility] Stop: 08/27/23 08:59 Last Admin: 08/05/23 08:08 Dose: 81 mg Atorvastatin Calcium (Atorvastatin 40 Mg Tab) 80 mg PO QAM [facility] Stop: 08/27/23 08:59 Last Admin: 08/05/23 08:09 Dose: 80 mg Buspirone HCl (Buspirone 7.5 Mg Tab) 22.5 mg PO QID [facility] Stop: 08/27/23 12:59 Last Admin: 08/05/23 08:09 Dose: 22.5 mg Dextrose (Dextrose 50% 50 Ml Syringe) 25 - 50 ml IV UD PRN; Protocol PRN Reason: Hypoglycemia Protocol Stop: 08/27/23 10:09 Dicyclomine HCl (Dicyclomine Hcl 20 Mg Tab) 20 mg PO QID PRN PRN Reason: IBS Stop: 08/27/23 08:43 Last Admin: 08/01/23 20:38 Dose: 20 mg Enoxaparin Sodium (Enoxaparin Inj 40 Mg/0.4 Ml Syr) 40 mg SQ HS [facility] Stop: 08/27/23 20:59 Last Admin: 08/01/23 20:36 Dose: 40 mg Ergocalciferol (Ergocalciferol 50,000 Units 1250 Mcg Cap) 50,000 units PO Fr@0900 [facility] Stop: 08/29/23 08:59 Last Admin: 07/30/23 08:09 Dose: 50,000 units Gabapentin (Gabapentin 300 Mg Cap) 300 mg PO BID [facility] Stop: 08/29/23 13:29 Last Admin: 08/05/23 08:09 Dose: 300 mg Glucagon (Glucagon For Inj 1 Mg Vial) 1 mg SQ UD PRN; Protocol PRN Reason: Hypoglycemia Protocol Stop: 08/27/23 10:09 Glucose (Glucose 40% Gel 15 Gm Tube) 15 - 30 gm PO UD PRN; Protocol PRN Reason: Hypoglycemia Protocol Stop: 08/27/23 10:09 Glucose (Glucose 10 Tab/Tube) 4 - 8 tab PO UD PRN; Protocol PRN Reason: Hypoglycemia Treatment Stop: 08/27/23 10:09 Hydromorphone HCl (Hydromorphone Inj 0.5 Mg/0.5 Ml Syr) 0.5 mg IV Q3H PRN PRN Reason: Severe Pain (7,8,9,10) Stop: 08/13/23 13:25 Last Admin: 08/04/23 22:00 Dose: 0.5 mg Hyoscyamine (Hyoscyamine Sulfate 0.125 Mg Tab) 0.125 mg PO QID PRN PRN Reason: Abdominal Pain Stop: 08/27/23 08:51 Last Admin: 07/29/23 19:47 Dose: 0.125 mg Insulin Aspart (Insulin Aspart Per Unit Charge) 0 units SC ACHS [facility] Stop: 08/27/23 11:29 Last Admin: 08/04/23 20:44 Dose: 1 units Lactobacillus Acidophilus (Advanced Probiotic 1250 Mg Capsule) 2 cap PO DAILY [facility] Stop: 09/02/23 14:59 Last Admin: 08/05/23 08:09 Dose: 2 cap Lidocaine (Lidocaine 5% 1 Patch) 1 patch TD HS [facility] Stop: 08/29/23 20:59 Last Admin: 08/04/23 20:41 Dose: 1 patch Linaclotide (Linaclotide 145 Mcg Capsule) 290 mcg PO DAILY [facility] Stop: 08/28/23 14:09 Last Admin: 08/03/23 08:37 Dose: 290 mcg Lorazepam (Lorazepam 0.5 Mg Tab) 0.5 mg PO TID [facility] Stop: 08/27/23 08:59 Last Admin: 08/05/23 08:07 Dose: 0.5 mg Metoprolol Succinate (Metoprolol Succ 25mg Ext Rel Tab) 25 mg PO QAM [facility] Stop: 08/29/23 11:14 Last Admin: 08/05/23 08:08 Dose: 25 mg Miscellaneous (Carbohydrates For Hypoglycemia ) 15 - 30 gm PO UD PRN PRN Reason: Hypoglycemia Protocol Stop: 08/27/23 10:09 Miscellaneous (Remove Lidoderm Patch) 1 each N/A DAILY@0900 [facility] Stop: 08/29/23 08:59 Last Admin: 08/04/23 08:48 Dose: 1 each Suvorexant 20mg Tab ([Patient Own Med]) 1 each PO HS PRN PRN Reason: Sleep Stop: 08/29/23 20:59 Last Admin: 08/04/23 20:38 Dose: 20 mg Pantoprazole Sodium (Pantoprazole 40 Mg Tab) 40 mg PO BID [facility]; Protocol Stop: 08/28/23 20:59 Last Admin: 08/05/23 08:09 Dose: 40 mg Quetiapine Fumarate (Quetiapine Fumarate 300 Mg Tablet) 300 mg PO HS [facility] Stop: 08/29/23 20:59 Last Admin: 08/04/23 20:41 Dose: 300 mg Sucralfate (Sucralfate 1 Gm/10 Ml Udc) 1 gm PO BID [facility] Stop: 08/28/23 20:59 Last Admin: 08/05/23 08:10 Dose: 1 gm Thyroid ([place] Thyroid 30 Mg Tab) 60 mg PO DAILY [facility] Stop: 08/28/23 08:59 Last Admin: 08/05/23 08:08 Dose: 60 mg Ticagrelor (Ticagrelor 90 Mg Tab) 90 mg PO BID [facility] Stop: 08/27/23 20:59 Last Admin: 08/05/23 08:07 Dose: 90 mg Tramadol HCl (Tramadol Hcl 50 Mg Tablet) 50 mg PO Q4H PRN PRN Reason: Moderate Pain (4,5,6) Stop: 08/28/23 07:33 Last Admin: 08/04/23 21:01 Dose: 50 mg
[2023-08-05] MEDS: INSULIN ASPART PER UNIT CHARGE SC SCH ×4 (09:10→20:31)
--- NOTE | 2023-08-05 11:39 | Ultrasound Report ---
US arterial duplex LE RT HISTORY: 57 years-old Female limited to assess [employer]IST pseudoaneurysm COMPARISON: 08/03/2023 TECHNIQUE: Multiple real-time sonographic images of the right lower extremity arterial structures wer e obtained assessing grayscale appearance, color and spectral flow FINDINGS: Partially thrombosed pseudoaneurysm of the common femoral artery measures 3.2 x 2.7 cm, previously me asured at 2.8 x 2.5 cm. Peak systolic velocities within the pseudoaneurysm measures up to 132 cm/s wi th end-diastolic velocities of 70 cm/s. Patency of the common femoral artery and vein. IMPRESSION: Interval partial thrombosis of the persistent common femoral pseudoaneurysm. ACT 112: Negative or not required by law. The above report was generated using voice recognition software. It may contain grammatical, syntax o r spelling errors. Electronically signed by: Jose Stahl M.D. 08/05/2023 11:38 AM
[2023-08-05] MEDS: HYDROmorphone INJ 0.5 MG/0.5 ML SYR IV PRN (11:50)
[2023-08-05] MEDS: HYDROmorphone HCL 2 MG TAB PO PRN ×2 (16:26→20:29)
[2023-08-05] MEDS: traMADol HCL 50 MG TABLET PO PRN (20:28)
[2023-08-05] MEDS: SUVOREXANT 20 MG PO PRN (20:29)
[2023-08-05] MEDS: QUEtiapine FUMARATE 300 MG TABLET PO SCH (20:33)
[2023-08-05] MEDS: LIDOCAINE 5% 1 PATCH TD SCH (20:34)
[2023-08-06 06:46] LABS: Hematocrit (blood only) 35.2 % (37.0-47.0); Hemoglobin 11.6 g/dl (12.0-16.0); Mean Corpuscular Hemoglobin 28.1 pg (25.0-34.0); Mean Corpuscular Volume 85.2 fL (80.0-100.0); Mean Platelet Volume 9.9 fL (9.4-12.4); Platelet Count 299 K/uL (130-400); RDW Coefficient of Variation 14.6 % (11.5-14.5); RDW Standard Deviation 45.9 fL (36.4-46.3); Red Blood Count 4.13 M/uL (4.20-5.40); White Blood Count 9.22 K/ul (4.8-10.8)
[2023-08-06 08:27] LABS: Calcium 9.1 mg/dl (8.6-10.3); Potassium 3.7 mmol/L (3.5-5.1)
[2023-08-06] MEDS: GABAPENTIN 300 MG CAP PO SCH ×2 (08:30→21:00)
[2023-08-06] MEDS: LORazepam 0.5 MG TAB PO SCH ×3 (08:30→20:59)
[2023-08-06] MEDS: ADVANCED PROBIOTIC 1250 MG CAPSULE PO SCH (08:31)
[2023-08-06] MEDS: HYOSCYAMINE SULFATE 0.125 MG TAB PO PRN (08:31)
[2023-08-06] MEDS: PANTOprazole 40 MG TAB PO SCH ×2 (08:31→21:02)
[2023-08-06] MEDS: SUCRALFATE 1 GM/10 ML UDC PO SCH ×2 (08:31→20:59)
[2023-08-06] MEDS: ATORVASTATIN 40 MG TAB PO SCH (08:32)
[2023-08-06] MEDS: TICAGRELOR 90 MG TAB PO SCH ×2 (08:32→20:59)
[2023-08-06] MEDS: busPIRone 7.5 MG TAB PO SCH ×4 (08:32→20:59)
[2023-08-06 08:33] LABS: BUN Creatinine Ratio 25.6 (10-20); Creatinine Clr Calc Pharmacy 65.9 ml/min; Est GFR (African American) 85.7 ml/min; Est GFR (Non-African American) 73.9 ml/min; Phosphorus 3.9 mg/dl (2.5-4.9)
[2023-08-06] MEDS: ARMOUR THYROID 30 MG TAB PO SCH (08:33)
[2023-08-06] MEDS: ERGOCALCIFEROL 50,000 UNITS 1250 MCG CAP PO SCH (08:33)
[2023-08-06] MEDS: ASPIRIN 81 MG ECTAB PO SCH (08:33)
[2023-08-06] MEDS: METOPROLOL SUCC 25MG EXT REL TAB PO SCH (08:34)
[2023-08-06] MEDS: HYDROmorphone HCL 2 MG TAB PO PRN (08:37)
[2023-08-06] MEDS: INSULIN ASPART PER UNIT CHARGE SC SCH ×4 (09:14→21:00)
--- NOTE | 2023-08-06 09:25 | Gastroenterology Progress Note ---
Date of Service August 06, 2023 Assessment & Plan (1) Acute myocardial infarction involving right coronary artery: (2) Irritable bowel syndrome: (3) Abdominal pain: Plan: 57 year old female currently admitted for acute FL involving the RCA status post TOMMIE and currently on dual antiplatelet therapy with history of IBS, narcotic bowel now off narcotics just with persisted constipation on OP Linzess currently on hold this admission for reports of diarrhea who notes reports ongoing midline lower abd pain and constipation, last BM 08/03/23. - KUB for stool burden - Increase Protonix to 40mg BID; trial addition of Carafate 1g BID - Restart Linzess 290mcg daily - Dicyclomine alternating w Hyoscyamine prn cramping/pain - Diet as tolerated - KUB to eval stool burden - Check stool Hpylori (noted stomach bx in 2020 and 2018 negative for Hpylori) - Would defer non urgent endoscopic evaluation at this time given her recent FL ; may arrange this in OP setting once cleared by Cardiology Thank you for allowing us to participate in the care of this patient. Please call with any acute changes, questions or concerns. Please see addendum below with additional recommendation from my supervising physician. Admission and Anticipated Discharge Date Admission Date: July 28, 2023 Supervising Physician Co-Signing Physician Notes Attg add: Pt with inguinal pain radiating to RLQ that is likely related to 4 cm hematoma. She has difficulty with ambulation due to pain, and there is some positional component to her pain. She has chronic constipation which is mildly worse, but is estelle PO, denies nausea, and has no postprandial worsening of pain. On exam, she has tenderness over inguinal ligament and RLQ, though no bruising. The rem Pain is likely related to hematoma. This pain is not likely GI in origin. Management of IBS as above, management of pain per other services. Subjective GI was asked to re-evaluate. Persistent, lower, midline abd pain. Constant. Notes this is worse, and different in location than her normal IBS symptoms. No BM in 3/4 days. Linzess was on hold for diarrhea which started when she was in [place]. Stool studies negative at that time. Duplex 2022: Interval partial thrombosis of the persistent common femoral pseudoaneurysm. Vascular US 2022: Ultrasound guidance provided for a partially thrombosed right common femoral artery pseudoaneurysm. Duplex 2022: 2.8 cm pseudoaneurysm involving the right common femoral artery. CTAP 2022: . Acute hemorrhage anterior to the right common femoral artery tracks along the external iliac vessels into the right retroperitoneum and dependent pelvis, possibly secondary to recent cardiac catheterization. Focal hematoma measures up to approximately 4 cm. No bowel obstruction or bowel wall thickening Cholecystectomy. Additional findings as above. Xray 2022: . Fecal retention has decreased from previous. There are no abnormal abdominal calcifications. Xray 2022: 2. Moderate fecal retention. CTAP 2022: Trace hemorrhage anterior to the common femoral vessels consistent with expected postcatheterization changes. No active arterial extravasation or pseudoaneurysm identified. No retroperitoneal hematoma.. No bowel wall thickening or obstruction. Normal caliber abdominal aorta. No evidence for a dissection. Patchy and linear bibasilar densities. This may represent atelectasis or a pneumonitis. Stable low-density bilateral adrenal gland nodules. These favor benign adenomas. Additional findings as described above. GES 2020: Hyperactive gastric transit as above. MRCP: Biliary ductal dilatation up to 13 mm likely reservoir effect status post cholecystectomy. No obstructing stone or apparent lesion. Correlate with nonobstructive LFTs. If there is clinical concern for obstruction, consider EUS. Hepatic cysts and hemangioma as detailed above. Age-indeterminate compression deformity of L2 ABD US: Diffusely increased echogenicity of the liver. Nonspecific finding. Fatty infiltration is a consideration among other diffuse hepatocellular process es.A 1 cm hyperechoic lesion in the left lobe of the liver, anteriorly, unchanged since CT dating back to 11/06/2010, suggestive of hemangioma. A 1.9 x 1.4 x 1.7 cm hyperechoic lesion noted in the left lobe. ?New finding ?MRI would be helpful further evaluation.Status post cholecystectomy. Common bile duct is dilated, measures 8-12 mm in diameter, possibly related to post cholecystectomy status. Correlation with obstructive enzymes would be helpful to exclude distal obstruction.Limited evaluation of pancreas. Normal right kidney. EGD 2020: Z-line irregular. Biopsied. - Normal stomach. Biopsied. - Normal examined duodenum. Colonoscopy 2020: The examined portion of the ileum was normal.Diverticulosis in the sigmoid colon.Internal hemorrhoids. The examination was otherwise normal on direct and retroflexion views. No specimens collected. EGD/EUS 12/26/18: Normal esophagus.Z-line regular, 35 cm from the incisors. Gastritis. Biopsied.Duodenitis. Biopsied. Normal second portion of the duodenum and third portion of the duodenum. Normal ampulla. Normal left lobe of the liver. There was mild dilation in the common bile duct which measured up to 10 mm. No stones, stricture of mass was seen. Normal pancreas.19 mm left adenal gland, likely represents and adenoma(would defer to PCM for further evaluation).Evidence of a cholecystectomy. EGD 10/21/17: Normal upper third of esophagus, middle third of esophagus and lower third of esophagus. Z-line regular, 33 cm from the incisors. Biopsied. Small sliding hiatal hernia. Erythematous mucosa in the stomach. Biopsied. Normal examined duodenum. Biopsied Colonoscopy 06/10/18: The entire examined colon is normal to the terminal ileum, with retroflexed views of the ascending colon and rectum. No specimens collected Review of Systems Review of Systems: All systems reviewed & are unremarkable except as noted in HPI & below Physical Exam Constitutional: WD/WN, vitals as above Respiratory: normal respiratory effort Cardiovascular: Rate/Rhythm: regular rate and regular rhythm Gastrointestinal (Abdomen): normal bowel sounds, soft, nontender, no hepatosplenomegaly Skin: no rashes, warm and dry Results & Data Vital Signs (Past 12 Hours) Vital Signs Temp Pulse Pulse Resp BP Pulse Ox O2 Del Method 08/06/23 07:20 36.7 C 78 18 110/70 94 Room Air 08/06/23 02:45 37.1 C 78 18 107/70 95 Room Air 08/06/23 00:00 70 08/05/23 22:49 37.2 C 70 16 110/71 95 Room Air Laboratory Results 08/06/23 08/06/23 08/06/23 Range/Units 08:11 06:14 06:14 WBC 9.22 (4.8-10.8) K/ul RBC 4.13 L (4.20-5.40) M/uL Hgb 11.6 L (12.0-16.0) g/dl Hct 35.2 L (37.0-47.0) % MCV 85.2 (80.0-100.0) fL MCH 28.1 (25.0-34.0) pg MCHC 33.0 (32.0-36.0) g/dL RDW Std Deviation 45.9 (36.4-46.3) fL RDW Coeff of Sharla 14.6 H (11.5-14.5) % Plt Count 299 (130-400) K/uL MPV 9.9 (9.4-12.4) fL Sodium 138 (136-145) mmol/L Potassium 3.7 (3.5-5.1) mmol/L Chloride 108 H (98-107) mmol/L Carbon Dioxide 24 (21-32) mmol/L Anion Gap 6 (3-11) BUN 22 (6-23) mg/dl Creatinine 0.86 (0.6-1.2) mg/dl Est Cr Clr Drug Dosing 65.9 ml/min Est GFR ( Amer) 85.7 ml/min Est GFR (Non-Af Amer) 73.9 ml/min BUN/Creatinine Ratio 25.6 H (10-20) Glucose 102 H (70-99(Fasting)) mg/dl POC Glucose 112 H (70-99) mg/dl Calcium 9.1 (8.6-10.3) mg/dl Phosphorus 3.9 (2.5-4.9) mg/dl Magnesium 2.0 (1.7-2.4) mg/dl 08/05/23 08/05/23 08/05/23 Range/Units 20:23 17:09 12:04 WBC (4.8-10.8) K/ul RBC (4.20-5.40) M/uL Hgb (12.0-16.0) g/dl Hct (37.0-47.0) % MCV (80.0-100.0) fL MCH (25.0-34.0) pg MCHC (32.0-36.0) g/dL RDW Std Deviation (36.4-46.3) fL RDW Coeff of Sharla (11.5-14.5) % Plt Count (130-400) K/uL MPV (9.4-12.4) fL Sodium (136-145) mmol/L Potassium (3.5-5.1) mmol/L Chloride (98-107) mmol/L Carbon Dioxide (21-32) mmol/L Anion Gap (3-11) BUN (6-23) mg/dl Creatinine (0.6-1.2) mg/dl Est Cr Clr Drug Dosing ml/min Est GFR ( Amer) ml/min Est GFR (Non-Af Amer) ml/min BUN/Creatinine Ratio (10-20) Glucose (70-99(Fasting)) mg/dl POC Glucose 124 H 111 H 106 H (70-99) mg/dl Calcium (8.6-10.3) mg/dl Phosphorus (2.5-4.9) mg/dl Magnesium (1.7-2.4) mg/dl
[2023-08-06] MEDS: LINACLOTIDE 145 MCG CAPSULE PO SCH (09:51)
[2023-08-06] MEDS: traMADol HCL 50 MG TABLET PO PRN (09:53)
--- NOTE | 2023-08-06 10:50 | Cardiology Progress Note ---
Date of Service August 06, 2023 Assessment & Plan (1) Pseudoaneurysm: (2) Acute myocardial infarction involving right coronary artery: (3) Dyslipidemia: (4) Abdominal pain: Plan Continue current cardiovascular medications including aspirin, Brilinta, atorvastatin, and metoprolol succinate. Repeat arterial ultrasound in 2 weeks for reassessment of pseudoaneurysm. Outpatient cardiology follow-up in 2 to 3 weeks. Admission and Anticipated Discharge Date Admission Date: July 28, 2023 Subjective Patient seen examined the bedside. Denies chest pain or shortness of breath. Continues to note right lower quadrant abdominal discomfort. Thrombin injection performed 08/04/2023 with ultrasound evidence of partial thrombosis of pseudoaneurysm. Repeat ultrasound recommended in 2 weeks. Review of Systems Review of Systems: All systems reviewed & are unremarkable except as noted in Subjective Physical Exam Constitutional: well developed and well nourished; no acute distress Respiratory: no respiratory distress, no labored breathing and no retractions Auscultation: no crackles, no rales, no rhonchi and no wheezes Cardiovascular: Rate/Rhythm: regular rate and regular rhythm Heart Sounds: normal S1 and normal S2; no murmur Vessels: femoral pulses present and radial pulses present; no JVD and no carotid bruit Gastrointestinal (Abdomen): Inspection/Auscultation: normal bowel sounds; abdomen not distended Percussion/Palpation: + abdomen tender (Right lower quadrant, and right inguinal discomfort); no guarding and abdomen not rigid Neurologic: CN's II-XI intact bilaterally and moves all extremities; no focal motor deficits Results & Data Vital Signs (Past 12 Hours) Vital Signs Temp Pulse Pulse Resp BP Pulse Ox O2 Del Method 08/06/23 08:00 62 08/06/23 07:20 36.7 C 78 18 110/70 94 Room Air 08/06/23 02:45 37.1 C 78 18 107/70 95 Room Air 08/06/23 00:00 70 08/05/23 22:49 37.2 C 70 16 110/71 95 Room Air Laboratory Results CBC 08/06/23 Range/Units 06:14 WBC 9.22 (4.8-10.8) K/ul RBC 4.13 L (4.20-5.40) M/uL Hgb 11.6 L (12.0-16.0) g/dl Hct 35.2 L (37.0-47.0) % Plt Count 299 (130-400) K/uL Comprehensive Metabolic Panel 08/06/23 Range/Units 06:14 Sodium 138 (136-145) mmol/L Potassium 3.7 (3.5-5.1) mmol/L Chloride 108 H (98-107) mmol/L Carbon Dioxide 24 (21-32) mmol/L BUN 22 (6-23) mg/dl Creatinine 0.86 (0.6-1.2) mg/dl Glucose 102 H (70-99(Fasting)) mg/dl Calcium 9.1 (8.6-10.3) mg/dl Intake and Output 08/05/23 08/06/23 08/06/23 22:59 06:59 14:59 Intake Total 340 / 1150 250 / 1150 Balance 340 / 950 250 / 950 Intake: Oral 340 / 1150 250 / 1150 Other: Weight 65.1 kg Weight Measurement Method Standing Scale
--- NOTE | 2023-08-06 11:04 | XRay Report ---
KUB HISTORY: assess for stool burden COMPARISON: 08/01/2023 FINDINGS: Nonobstructive bowel gas pattern. Moderate fecal retention of the right hemicolon. Cholecys tectomy. No renal calculi. No ureteral calculi. No pneumoperitoneum or pneumatosis. Lumbar levoscoli osis. Chronic L2 compression deformity with kyphoplasty. No fracture. IMPRESSION: 1. Nonobstructive bowel gas pattern. 2. Moderate fecal retention of the right hemicolon. ACT 112: Negative or not required by law. The above report was generated using voice recognition software. It may contain grammatical, syntax o r spelling errors. Electronically signed by: Jose Stahl M.D. 08/06/2023 11:03 AM
[2023-08-06] MEDS: TAPENTADOL HCL 50 MG TAB PO PRN ×3 (13:34→20:58)
[2023-08-06] MEDS: ACETAMINOPHEN 325 MG TAB PO SCH ×3 (13:35→20:59)
--- NOTE | 2023-08-06 13:54 | Pain Management Consultation ---
Date of Consultation August 06, 2023 Assessment & Plan (1) Hematoma: (2) Pseudoaneurysm: (3) Abdominal pain: (4) Acute myocardial infarction involving right coronary artery: Plan 1. Appears most likely her residual pain is associated with the identified hematoma on imaging of the abdomen and pelvis given the retroperitoneal spread potentially explaining the radiation pain to the right upper and left lower quadrants. Would not consider ilioinguinal, genitofemoral nerve blocks or abdominal wall trigger point at this time given her ongoing blood thinner use along with the known hematoma. 2. Will discontinue tramadol and initiate a trial of Nucynta 50 mg every 4 hours to assess efficacy and tolerability 3. Richards any IV hydromorphone for pain not well controlled Nucynta, but we did discuss planning for discharge and she verbalized understanding. She was encouraged to limit utilization of any IV hydromorphone at this time. 4. Will transition acetaminophen to scheduled 650 mg 4 times daily 5. It was requested that nurse apply ice to the right lower quadrant/groin location 6. Consider outpatient follow-up in pain clinic to determine any potential utility of interventional treatment moving forward pending resolution of hematoma with persisting complaints of pain. Pain service will sign off on patient at this time. History of Present Illness Reason for Consultation: Right lower quadrant abdominal/groin region pain Requesting Physician: Mak Burns MD Attending Physician: Mak Burns MD History of Present Illness Mrs. Gayle is a 57-year-old white female who was admitted with acute PR involving the RCA status post TOMMIE and currently on dual antiplatelet therapy with history of IBS and recent difficulties with diarrhea/abdominal pain status post a trip to [facility] in April. Patient does report history of IBS chronically on Linzess which was extremely helpful at controlling her symptoms outpatient prior to her bout of diarrhea while traveling in [facility]. She reported some ongoing abdominal pain prior to this admission but had an acute change in her abdominal pain immediately status post her cardiac catheterization/stent placement. The pain has been fairly persistent in the right lower quadrant abdomen and groin location which can spread across to the left lower abdomen and right upper quadrant. She describes the pain as sharp and burning in characteristic and localized with spread. The pain is aggravated with movement and walking and minimally improved with lying still. She reports minimal benefit from use of tramadol but is finding some benefit with hydromorphone IV but for short duration only. She has been found to have acute hemorrhage anterior to the right common femoral artery tracking along the external iliac vessels into the right retroperitoneum and dependent pelvis with focal hematoma measuring approximate 4 cm per abdominal and pelvic CT dated 08/02/2023. The patient then underwent an ultrasound-guided pseudoaneurysm thrombin injection with Dr. Leahy on 08/04/2023 with minimal improvement in pain. There is plan for repeat ultrasound in 2 weeks duration. Her pain has been fairly persistent without change since that time. She denies any low back pain or radicular pattern to her pain complaint. She has had some constipation over the past 4-5 days with minimal BM. Patient reports a prior history of use of Nucynta from treatment of compression fracture 10-11 years ago with efficacy without side effects. She does have difficulties with GI irritation with hydrocodone, morphine and codeine per her report. Patient has no further constitutional complaints. Plan of care discussed with Dr. Tiara Ordonez. Pain Assessment Full Body Front + Back: 1. Right lower quadrant/groin 2. Radiation to right upper quadrant 3. Radiation to left lower quadrant/groin Pain scale - at its best (0-10): 6 Pain scale - at its worst (0-10): 9 Allergies Allergy/AdvReac Type Severity Reaction Status Date / Time egg Allergy Unknown HIVES, Verified 09/05/20 10:21 FACIAL SWELLING codeine AdvReac Unknown ABDOMINAL Verified 09/05/20 10:21 PAIN-IBS morphine AdvReac Unknown ABDOMINAL Verified 09/05/20 10:21 PAIN-IBS Opioids - Morphine Analogues AdvReac Unknown Nausea Verified 07/28/23 06:39 Home Medications Medication Instructions Recorded Confirmed Type dicyclomine 20 mg tablet 20 mg PO QID PRN IBS 10/03/18 07/28/23 History hyoscyamine sulfate 0.125 mg 0.125 mg sublingual QID PRN 10/03/18 07/28/23 History sublingual tablet Abdominal Pain lorazepam 0.5 mg tablet 0.5 mg PO TID anxiety 09/05/20 07/28/23 History suvorexant 20 mg tablet (Belsomra) 20 mg PO HS PRN Sleep 09/05/20 07/28/23 History buspirone 15 mg tablet 22.5 mg PO QID 07/28/23 07/28/23 History cholecalciferol (vitamin D3) 1,250 50,000 unit PO FR@0900 07/28/23 07/28/23 History mcg (50,000 unit) capsule denosumab 60 mg/mL subcutaneous See Rx Instructions .Route .COMPLEX 07/28/23 07/28/23 History syringe (Prolia) glipizide 5 mg tablet, extended 5 mg PO DAILY 07/28/23 07/28/23 History release 24 hr omeprazole 40 mg capsule,delayed 40 mg PO DAILY 07/28/23 07/28/23 History release progesterone micronized 200 mg 400 mg PO HS 07/28/23 07/28/23 History capsule thyroid (pork) 60 mg tablet 60 mg PO DAILY 07/28/23 07/28/23 History ([place] Thyroid) linaclotide 290 mcg capsule 290 mcg PO DAILY 07/29/23 07/29/23 History (Linzess) quetiapine 300 mg tablet 300 mg PO HS 07/30/23 07/30/23 History Pain History Pain Intensity Pain scale - at its best (0-10): 6 Pain scale - at its worst (0-10): 9 Patient History Medical History (Updated 08/06/23 @ 13:51 by Chapo Martinez PA-C) Anxiety Hematoma Osteoporosis Vitamin D insufficiency Social History Smoking Status: Current every day smoker Tobacco Type: Cigarettes Hx Alcohol Use: No Hx Substance Use: No Preferred Language: Martiniquais Communication Ability: Effective Plater Supervisor Required: No Beliefs That Will Affect Care: None Current Living Situation: Spouse Feels Safe at Home: Yes Assistive Devices: None Physical Exam Physical Exam: General: Patient witnessed walking in the hallway. She was then sitting quietly in the exam room and lying supine in no acute distress. Speech and thought process appropriate. Mood and affect appropriate. Cognition intact. Head: Normocephalic and atraumatic. ENT: No evidence of nasal or oral mucosal lesions. Mucous membranes are moist. Eyes: Pupils equal round reactive to light. Neck: Supple without adenopathy and full range of motion. Abdomen: Soft and nondistended. No organomegaly. Bowel sounds active. Patient has minimal tenderness in the right upper quadrant to palpation without rebound or guarding. Patient is nontender over the left upper or left lower quadrant to palpation. Patient has well-healed Pfannenstiel incision in the suprapubic lo cation. Patient has some ecchymosis noted in the right lower quadrant near the groin. Patient is generally tender throughout the right lower quadrant over the ilioinguinal and genitofemoral nerve locations as well as some generalized right lower quadrant tenderness to palpation without rebound or guarding. There is no palpable mass. No erythema or skin breakdown. Lower extremities: SLR negative. Slight increase in right lower quadrant/groin discomfort with resisted hip flexion. Hip is minimally tender with internal/external rotation in the groin region. Sensation intact distally to sharp and dull. Neurologic: Cranial nerves grossly intact. Ambulatory function was slowed and guarded.
--- NOTE | 2023-08-06 16:51 | Hospitalist Progress Note ---
Date of Service August 06, 2023 Assessment & Plan (1) Acute myocardial infarction involving right coronary artery: Plan: s/p TOMMIE to RCA occlusion with resolution of chest pain and symptoms on 07/28 Echo: Mild concentric LVH, no regional wall motion abnormalities, LV systolic function is normal with EF 55 to 60%, grade 1 diastolic dysfunction, and there is no significant valvular disease Cont DAPT with aspirin and ticagrelor, atorvastatin 80mg daily, metoprolol succinate 25 mg daily Appreciate cardiology input and recommendation - recommend follow up in 2 weeks (2) Abdominal pain: Plan: Acute on chronic abdominal discomfort and pain , diarrhea following travel to [place] in April of this year Stool PCR negative C. difficile - ordered GI was consulted for help with working up this pain. She has a long-standing h/o IBS and sees [facility] for this for many years. Added gabapentin to se if this helps the femoral neuralgia post procedure. Unfortunately pt continues to have significant pain. Stool pcr - negative, H.pylori antigen negative and Giardia antigen negative. Pt does report loose stools lately (since being in [facility]). When holding linzess for 2 days - no BM -> restarted linzess Discussed again w/ GI on 08/06 - not likely pain from IBS but from hematoma - agree with pain management Acute intra-abdominal hemorrhage involving cardiac catheterization site around right common femoral artery Initial CT abd pelvis on 07/28/2023 reveals trace hemorrhage anterior to the common femoral vessels consistent with expected postcatheterization changes. Pain continued and a repeat CT scan showed: Acute hemorrhage anterior to the right common femoral artery tracks along the external iliac vessels into the right retroperitoneum and dependent pelvis, possibly secondary to recent cardiac catheterization. Focal hematoma measures up to 4 cm(2.8 x 2.3 x 3.8 cm).Stable low-density bilateral adrenal gland nodules. These favor benign adenomas. Hemoglobin remains stable Will continue with the current DAPT treatment, lovenox on hold Discussed w/ cardiology - Dr. 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 Interventional cardiology Dr. Leahy contacted - pt is s/p thrombin injection yesterday (08/04/2023) Repeat art. US obtained - Interval partial thrombosis of the persistent common femoral pseudoaneurysm. - Discussed w/ Dr. Leahy - recommends follow up in 2 weeks w/ repeat US. Pain likely secondary to some bleed/ hematoma noted on CT. Cont. pain control - obtained pain management consult - discussed in detail - starting Nucynta and stopping tramadol, cont. to monitor pt, hopefully will be able to DC tmrw (3) Bradycardia: Plan: Transient third degree heart block related to ischemia. Currently in NSR after catheterization. Cont monitoring on telemetry. (4) Infiltrate of both lungs present on imaging study: Plan: patient does report a cough for two weeks and some chills with a generalized unwell feeling prior to arrival. Although this may just be an atypical presentation of pulmonary edema, she is not fluid overloaded and with symptoms, Rocephin/azithromycin started empirically. Blood cultures are preliminarily negative and she is not coughing, Procalcitonin is negative. Abx were stopped. Consider repeat CXR in 4 weeks to ensure resolution of infiltrates. (5) Irritable bowel syndrome: Plan: Continued Levsin and Bentyl PRN and daily Linzess per home regimen. Pt reports being on her meds for years and never having loose stools like this. Reports loose stools recently (since being in [facility]). Stool pcr - negative c. diff - ordered H. pylori antigen negative, Giardia antigen negative (6) Osteoporosis: Plan: Chronic, stable. Cont prolia per home regimen. (7) Anxiety: Plan: Chronic, stable. Managed by Dr. Majano (psychiatry). Cont Buspar, ativan, seroquel and Belsomra per home regimen. (8) Vitamin D insufficiency: Plan: Cont home supplementation weekly (9) DMII (diabetes mellitus, type 2): Plan: chronic, stable. Repeat A1C reflects good control at 6.1. Hold glipizide while inpatient. Cont with insulin coverage while inpatient. (10) Hypothyroidism: Plan: Chronic, stable. Repeat TSH reflects good control. Cont [place] Thyroid 60mg daily per home regimen. (11) Adrenal nodule: Plan: per outpatient PCP. DVT prophy-Lovenox currently on hold Full Code Dispo-PCU Admission and Anticipated Discharge Date Admission Date: July 28, 2023 Subjective Pt seen in follow up of acute RCA occlusion status post drug-eluting stent placed 07/28. Continues to have pain involving the right lower abdomen and inguinal area -> repeat CT abd/pelvis obtained and showed hematoma - discussed w/ cardiology (Dr. Moon) - and obtained arterial US which shows pseudoaneurysm - interventional cardiology contacted and pt is s/p thrombin injection on 08/04 (Dr. Leahy). Repeat art. US obtained and discussed w/ Dr. Leahy yesterday. Pt denies any chest pain, palpitations or shortness of breath. No dizziness or lightheadedness. Unfortunately continues to have significant pain in her lower abdomen/groin despite pain medications - discussed again today with GI and also consulted with and discussed w/ pain management - they do not recommend injection at this time, perhaps in the future - started Nucynta now. Review of Systems Review of Systems: All systems reviewed & are unremarkable except as noted in Subjective Physical Exam Physical Exam: CONSTITUTIONAL: WN/WD, in NAD EYES: normal conjunctivae, no scleral icterus ENT: external ear and nose normal, MMM NECK:supple RESPIRATORY: clear to auscultation bilaterally, no crackles, rales or wheezes, normal respiratory effort CARDIOVASCULAR: regular rate and rhythm, no murmurs, gallops or rubs, no JVD, no peripheral edema CHEST: inspection of chest was normal GASTROINTESTINAL: normal bowel sounds, soft, + TTP in right lower abd. SKIN: warm and dry NEURO/PSYCH:awake alert oriented, answers appropriately, normal speech, moves extremities Results & Data Results & Data Vital Signs (Past 12 Hours) Vital Signs Temp Pulse Pulse Resp BP Pulse Ox O2 Del Method 08/06/23 16:00 57 L 08/06/23 15:55 62 20 95/63 L 99 Room Air 08/06/23 11:17 36.9 C 61 20 110/67 98 Room Air 08/06/23 08:00 62 08/06/23 07:20 36.7 C 78 18 110/70 94 Room Air Laboratory Results 08/06/23 08/06/23 08/06/23 Range/Units 16:44 11:57 08:11 WBC (4.8-10.8) K/ul RBC (4.20-5.40) M/uL Hgb (12.0-16.0) g/dl Hct (37.0-47.0) % MCV (80.0-100.0) fL MCH (25.0-34.0) pg MCHC (32.0-36.0) g/dL RDW Std Deviation (36.4-46.3) fL RDW Coeff of Sharla (11.5-14.5) % Plt Count (130-400) K/uL MPV (9.4-12.4) fL Sodium (136-145) mmol/L Potassium (3.5-5.1) mmol/L Chloride (98-107) mmol/L Carbon Dioxide (21-32) mmol/L Anion Gap (3-11) BUN (6-23) mg/dl Creatinine (0.6-1.2) mg/dl Est Cr Clr Drug Dosing ml/min Est GFR ( Amer) ml/min Est GFR (Non-Af Amer) ml/min BUN/Creatinine Ratio (10-20) Glucose (70-99(Fasting)) mg/dl POC Glucose 97 119 H 112 H (70-99) mg/dl Calcium (8.6-10.3) mg/dl Phosphorus (2.5-4.9) mg/dl Magnesium (1.7-2.4) mg/dl 08/06/23 08/06/23 08/05/23 Range/Units 06:14 06:14 20:23 WBC 9.22 (4.8-10.8) K/ul RBC 4.13 L (4.20-5.40) M/uL Hgb 11.6 L (12.0-16.0) g/dl Hct 35.2 L (37.0-47.0) % MCV 85.2 (80.0-100.0) fL MCH 28.1 (25.0-34.0) pg MCHC 33.0 (32.0-36.0) g/dL RDW Std Deviation 45.9 (36.4-46.3) fL RDW Coeff of Sharla 14.6 H (11.5-14.5) % Plt Count 299 (130-400) K/uL MPV 9.9 (9.4-12.4) fL Sodium 138 (136-145) mmol/L Potassium 3.7 (3.5-5.1) mmol/L Chloride 108 H (98-107) mmol/L Carbon Dioxide 24 (21-32) mmol/L Anion Gap 6 (3-11) BUN 22 (6-23) mg/dl Creatinine 0.86 (0.6-1.2) mg/dl Est Cr Clr Drug Dosing 65.9 ml/min Est GFR ( Amer) 85.7 ml/min Est GFR (Non-Af Amer) 73.9 ml/min BUN/Creatinine Ratio 25.6 H (10-20) Glucose 102 H (70-99(Fasting)) mg/dl POC Glucose 124 H (70-99) mg/dl Calcium 9.1 (8.6-10.3) mg/dl Phosphorus 3.9 (2.5-4.9) mg/dl Magnesium 2.0 (1.7-2.4) mg/dl 08/05/23 Range/Units 17:09 WBC (4.8-10.8) K/ul RBC (4.20-5.40) M/uL Hgb (12.0-16.0) g/dl Hct (37.0-47.0) % MCV (80.0-100.0) fL MCH (25.0-34.0) pg MCHC (32.0-36.0) g/dL RDW Std Deviation (36.4-46.3) fL RDW Coeff of Sharla (11.5-14.5) % Plt Count (130-400) K/uL MPV (9.4-12.4) fL Sodium (136-145) mmol/L Potassium (3.5-5.1) mmol/L Chloride (98-107) mmol/L Carbon Dioxide (21-32) mmol/L Anion Gap (3-11) BUN (6-23) mg/dl Creatinine (0.6-1.2) mg/dl Est Cr Clr Drug Dosing ml/min Est GFR ( Amer) ml/min Est GFR (Non-Af Amer) ml/min BUN/Creatinine Ratio (10-20) Glucose (70-99(Fasting)) mg/dl POC Glucose 111 H (70-99) mg/dl Calcium (8.6-10.3) mg/dl Phosphorus (2.5-4.9) mg/dl Magnesium (1.7-2.4) mg/dl Medications Administered Current Inpatient Medications Acetaminophen (Acetaminophen 325 Mg Tab) 650 mg PO QID STEPHAN Stop: 09/05/23 13:29 Last Admin: 08/06/23 13:35 Dose: 650 mg Aspirin (Aspirin 81 Mg Ectab) 81 mg PO QAM [facility] Stop: 08/27/23 08:59 Last Admin: 08/06/23 08:33 Dose: 81 mg Atorvastatin Calcium (Atorvastatin 40 Mg Tab) 80 mg PO QAM [facility] Stop: 08/27/23 08:59 Last Admin: 08/06/23 08:32 Dose: 80 mg Buspirone HCl (Buspirone 7.5 Mg Tab) 22.5 mg PO QID [facility] Stop: 08/27/23 12:59 Last Admin: 08/06/23 13:08 Dose: 22.5 mg Dextrose (Dextrose 50% 50 Ml Syringe) 25 - 50 ml IV UD PRN; Protocol PRN Reason: Hypoglycemia Protocol Stop: 08/27/23 10:09 Dicyclomine HCl (Dicyclomine Hcl 20 Mg Tab) 20 mg PO QID PRN PRN Reason: IBS Stop: 08/27/23 08:43 Last Admin: 08/01/23 20:38 Dose: 20 mg Enoxaparin Sodium (Enoxaparin Inj 40 Mg/0.4 Ml Syr) 40 mg SQ HS [facility] Stop: 08/27/23 20:59 Last Admin: 08/01/23 20:36 Dose: 40 mg Ergocalciferol (Ergocalciferol 50,000 Units 1250 Mcg Cap) 50,000 units PO Fr@0900 [facility] Stop: 08/29/23 08:59 Last Admin: 08/06/23 08:33 Dose: 50,000 units Gabapentin (Gabapentin 300 Mg Cap) 300 mg PO BID [facility] Stop: 08/29/23 13:29 Last Admin: 08/06/23 08:30 Dose: 300 mg Glucagon (Glucagon For Inj 1 Mg Vial) 1 mg SQ UD PRN; Protocol PRN Reason: Hypoglycemia Protocol Stop: 08/27/23 10:09 Glucose (Glucose 40% Gel 15 Gm Tube) 15 - 30 gm PO UD PRN; Protocol PRN Reason: Hypoglycemia Protocol Stop: 08/27/23 10:09 Glucose (Glucose 10 Tab/Tube) 4 - 8 tab PO UD PRN; Protocol PRN Reason: Hypoglycemia Treatment Stop: 08/27/23 10:09 Hydromorphone HCl (Hydromorphone Inj 0.5 Mg/0.5 Ml Syr) 0.5 mg IV Q3H PRN PRN Reason: Severe Pain (7,8,9,10) Stop: 08/13/23 13:25 Last Admin: 08/05/23 11:50 Dose: 0.5 mg Hydromorphone HCl (Hydromorphone Hcl 2 Mg Tab) 1 mg PO Q4H PRN PRN Reason: Pain 7-10 Stop: 08/19/23 14:41 Last Admin: 08/06/23 08:37 Dose: 1 mg Hyoscyamine (Hyoscyamine Sulfate 0.125 Mg Tab) 0.125 mg PO QID PRN PRN Reason: Abdominal Pain Stop: 08/27/23 08:51 Last Admin: 08/06/23 08:31 Dose: 0.125 mg Insulin Aspart (Insulin Aspart Per Unit Charge) 0 units SC ACHS [facility] Stop: 08/27/23 11:29 Last Admin: 08/06/23 13:08 Dose: 2 units Lactobacillus Acidophilus (Advanced Probiotic 1250 Mg Capsule) 2 cap PO DAILY [facility]PH[facility] Stop: 09/02/23 14:59 Last Admin: 08/06/23 08:31 Dose: 2 cap Lidocaine (Lidocaine 5% 1 Patch) 1 patch TD HS STEPHAN Stop: 08/29/23 20:59 Last Admin: 08/05/23 20:34 Dose: 1 patch Linaclotide (Linaclotide 145 Mcg Capsule) 290 mcg PO DAILY [facility] Stop: 08/28/23 14:09 Last Admin: 08/06/23 09:51 Dose: 290 mcg Lorazepam (Lorazepam 0.5 Mg Tab) 0.5 mg PO TID [facility] Stop: 08/27/23 08:59 Last Admin: 08/06/23 13:08 Dose: 0.5 mg Metoprolol Succinate (Metoprolol Succ 25mg Ext Rel Tab) 25 mg PO QAM [facility] Stop: 08/29/23 11:14 Last Admin: 08/06/23 08:34 Dose: 25 mg Miscellaneous (Carbohydrates For Hypoglycemia ) 15 - 30 gm PO UD PRN PRN Reason: Hypoglycemia Protocol Stop: 08/27/23 10:09 Miscellaneous (Remove Lidoderm Patch) 1 each N/A DAILY@0900 [facility] Stop: 08/29/23 08:59 Last Admin: 08/06/23 08:34 Dose: 1 each Suvorexant 20mg Tab ([Patient Own Med]) 1 each PO HS PRN PRN Reason: Sleep Stop: 10/08/23 20:59 Last Admin: 08/05/23 20:29 Dose: 20 mg Pantoprazole Sodium (Pantoprazole 40 Mg Tab) 40 mg PO BID [facility]; Protocol Stop: 08/28/23 20:59 Last Admin: 08/06/23 08:31 Dose: 40 mg Quetiapine Fumarate (Quetiapine Fumarate 300 Mg Tablet) 300 mg PO HS [facility] Stop: 08/29/23 20:59 Last Admin: 08/05/23 20:33 Dose: 300 mg Sucralfate (Sucralfate 1 Gm/10 Ml Udc) 1 gm PO BID [facility]PH[facility] Stop: 08/28/23 20:59 Last Admin: 08/06/23 08:31 Dose: 1 gm Tapentadol (Tapentadol Hcl 50 Mg Tab) 50 mg PO Q4H PRN PRN Reason: Pain Stop: 08/20/23 13:07 Last Admin: 08/06/23 13:34 Dose: 50 mg Thyroid ([place] Thyroid 30 Mg Tab) 60 mg PO DAILY [facility] Stop: 08/28/23 08:59 Last Admin: 08/06/23 08:33 Dose: 60 mg Ticagrelor (Ticagrelor 90 Mg Tab) 90 mg PO BID [facility] Stop: 08/27/23 20:59 Last Admin: 08/06/23 08:32 Dose: 90 mg
[2023-08-06] MEDS: LIDOCAINE 5% 1 PATCH TD SCH (21:01)
[2023-08-06] MEDS: QUEtiapine FUMARATE 300 MG TABLET PO SCH (21:02)
[2023-08-07 06:28] LABS: Hematocrit (blood only) 32.8 % (37.0-47.0); Hemoglobin 10.9 g/dl (12.0-16.0)
[2023-08-07] MEDS: LORazepam 0.5 MG TAB PO SCH ×2 (08:32→15:06)
[2023-08-07] MEDS: METOPROLOL SUCC 25MG EXT REL TAB PO SCH (08:32)
[2023-08-07] MEDS: TICAGRELOR 90 MG TAB PO SCH (08:32)
[2023-08-07] MEDS: ACETAMINOPHEN 325 MG TAB PO SCH ×3 (08:32→16:48)
[2023-08-07] MEDS: TAPENTADOL HCL 50 MG TAB PO PRN ×3 (08:32→16:48)
[2023-08-07] MEDS: ADVANCED PROBIOTIC 1250 MG CAPSULE PO SCH (08:33)
[2023-08-07] MEDS: ATORVASTATIN 40 MG TAB PO SCH (08:33)
[2023-08-07] MEDS: SUCRALFATE 1 GM/10 ML UDC PO SCH (08:33)
[2023-08-07] MEDS: busPIRone 7.5 MG TAB PO SCH ×3 (08:33→18:21)
[2023-08-07] MEDS: GABAPENTIN 300 MG CAP PO SCH (08:33)
[2023-08-07] MEDS: LINACLOTIDE 145 MCG CAPSULE PO SCH (08:34)
[2023-08-07] MEDS: PANTOprazole 40 MG TAB PO SCH (08:34)
[2023-08-07] MEDS: ASPIRIN 81 MG ECTAB PO SCH (08:34)
[2023-08-07] MEDS: ARMOUR THYROID 30 MG TAB PO SCH (08:34)
[2023-08-07] MEDS: INSULIN ASPART PER UNIT CHARGE SC SCH ×3 (08:45→16:51)
--- NOTE | 2023-08-07 15:47 | Discharge Summary ---
Date of Service August 07, 2023 Admission HPI Per Admitting Provider 57-year-old female smoker presented to the ER with chest pain and abdominal pain followed by syncopal event. Per ER notes she called her in the evening stating she was not feeling well the patient climbed a flight of stairs and then clutched her chest stating she felt as though she was having a heart attack. She had a syncopal event after that with the ambulance crew present when she awoke. Pain was nonradiating. On arrival to the ER she was in no significant distress. A chest x-ray revealed cardiomegaly with lower lung zone predominant mixed interstitial and alveolar opacities suspicious for nonspecific pneumonitis. Chest CTA revealed mild bilateral multifocal ground glass and consolidative densities suggestive of pneumonia along with a left adrenal nodularity. EKG revealed sinus bradycardia with first-degree AV block and T wave inversions with ST depressions in V1 V2. Telemetry reflected third degree heart block. She was given aspirin 324 nitroglycerin followed by Zosyn and fentanyl for pain. Nitroglycerin 1 inch paste was applied and a heart alert was called for STEMI. Cardiac catheterization revealed proximal RCA occlusion with successful PCI to the RCA with implantation of a drug-eluting stent. No significant coronary disease was found elsewhere. Dual antiplatelet therapy with aspirin and Brilinta 90 mg p.o. twice daily was recommended including guideline directed medical therapy for secondary prevention of coronary disease to include high intensity statin therapy, beta-rose plus or minus TAMI inhibitor/ARB. Smoking cessation strongly recommended. She was admitted to the ICU postcardiac catheterization. ROS reveals a chronic abdominal pain that starts in RUQ and moves down into her pelvis. She reports ongoing diarrhea and takes IBS medications. She reports having this medication since April around her trip to [facility]. She doesn't take anything for pain at home per her report. Admission Exam Per Admitting Provider CONSTITUTIONAL: WNWD, vitals as above, generally well-appearing, NAD EYES: normal conjunctivae, no scleral icterus ENT: external ear and nose normal, MMM NECK: trachea midline, RESPIRATORY: clear to auscultation bilaterally, no crackles, rales or wheezes, normal respiratory effort CARDIOVASCULAR: regular rate and rhythm, S1 and 2 heard without murmurs, gallops or rubs, no JVD, no peripheral edema CHEST: inspection of chest was normal GASTROINTESTINAL: normal bowel sounds, soft, TTP in right abdominal, ND, neck supple, normal palpation of chest wall without tenderness SKIN: warm and dry NEUROLOGIC: CN 2-12 grossly intact, no sensory deficit, normal cognition, normal speech, no tremor PSYCHIATRIC: alert cooperative and oriented to person, place and time. Principal Diagnosis Acute AL involving RCA Pseudoaneurysm Hematoma Discharge Exam CONSTITUTIONAL: WN/WD, in NAD EYES: normal conjunctivae, no scleral icterus ENT: external ear and nose normal, MMM NECK:supple RESPIRATORY: clear to auscultation bilaterally, no crackles, rales or wheezes, normal respiratory effort CARDIOVASCULAR: regular rate and rhythm, no murmurs, gallops or rubs, no JVD, no peripheral edema CHEST: inspection of chest was normal GASTROINTESTINAL: normal bowel sounds, soft, + TTP in right lower abd, minimal (improved) SKIN: warm and dry NEURO/PSYCH:awake alert oriented, answers appropriately, normal speech, moves extremities Discharge Data Allergies Allergy/AdvReac Type Severity Reaction Status Date / Time egg Allergy Unknown HIVES, Verified 09/05/20 10:21 FACIAL SWELLING codeine AdvReac Unknown ABDOMINAL Verified 09/05/20 10:21 PAIN-IBS morphine AdvReac Unknown ABDOMINAL Verified 09/05/20 10:21 PAIN-IBS Opioids - Morphine Analogues AdvReac Unknown Nausea Verified 07/28/23 06:39 Consultations 07/28/23 05:29 ED Decision to Admit Stat 07/28/23 06:13 Consult [place] Cutter Operator Routine 07/28/23 09:02 Consult Hospitalist Routine 07/28/23 09:05 Consult Cardiology Routine 07/29/23 09:05 Consult Gastroenterology Routine 07/30/23 11:11 Consult Cardiac Rehabilitation Routine 08/05/23 16:33 Consult Pain Management Routine Procedures Performed Operation Date: 07/28/23 06:00 Actual Procedures p Cineradiography w/Routine Exam - Seth Latham MD, PhD s Aspiration/PCI w/TOMMIE for Stemi - Seth Latham MD, PhD s Cath, Coronaries ONLY (no LV) - Seth Latham MD, PhD s Placement Art Occlusive Device - Seth Latham MD, PhD s Ultrasound Vascular Access - Seth Latham MD, PhD Ordered Studies 07/28/23 04:00 CT angio chest dissec wo/w con Stat FINDINGS: Pulmonary arteries: Unremarkable. No acute pulmonary embolism. Aorta: No acute findings. No thoracic aortic aneurysm. Lungs: Patchy multifocal groundglass and consolidative densities are seen scattered in the lungs, more so involving the lower lobes. 7.9 mm nodule seen in the lingula on image 24, series 2. Pleural space: Unremarkable. No significant effusion. No pneumothorax. Heart: There is mild left ventriculomegaly. No significant pericardial effusion. No evidence of RV dysfunction. Bones/joints: No acute fracture. No dislocation. Soft tissues: Unremarkable. Lymph nodes: Unremarkable. No enlarged lymph nodes. Gallbladder and bile ducts: Cholecystectomy. Adrenals: Nodularity seen in the left adrenal gland, measuring up to 2. 1 cm in diameter. IMPRESSION: 1. Bilateral multifocal groundglass and consolidative densities are suggestive of pneumonia 2. Left adrenal nodularity 07/28/23 05:38 CL Cath Imgs for PACS use only Stat 07/28/23 06:29 CT abdomen pelvis wo/w con Stat FINDINGS: Patchy and linear bilateral lower lobe densities are better appreciated on the same day chest CT. This may represent atelectasis or pneumonia. No pneumoperitoneum. No pneumatosis. L2 vertebroplasty is noted. Old mild superior endplate compression deformities at L4 and L5. Old mild inferior endplate compression deformities at T8 and T10. Residual contrast within the urinary system from the recent cardiac catheterization. Noncontrast imaging through the abdominal aorta demonstrates moderate calcified plaque. No evidence for an intramural hematoma. The abdominal aorta is normal in course and caliber. The iliac and femoral vessels are also normal in course and caliber with no evidence for dissection, stenosis, or occlusion. No retroperitoneal hematoma. Trace hemorrhage anterior to the common femoral vessels best seen on image 297. No active arterial extravasation identified to suggest a pseudoaneurysm. This is consistent with the access point for the cardiac catheterization. There is an overlying pressure dressing identified. Cholecystectomy. The main portal vein is patent. The liver, spleen, and pancreas are unremarkable. Subcentimeter hypodense lesions within the left kidney are technically too small to characterize but favor cysts. The right kidney enhances normally. No hydronephrosis. Bilateral low-density adrenal gland nodules remain stable. These favor benign adenomas. No retroperitoneal or pelvic lymphadenopathy. No pelvic free fluid. No bowel wall thickening or obstruction. The uterus and bilateral adnexa are unremarkable. No bowel wall thickening or obstruction. IMPRESSION: 1. Trace hemorrhage anterior to the common femoral vessels consistent with expected postcatheterization changes. No active arterial extravasation or pseudoaneurysm identified. No retroperitoneal hematoma. 2. No bowel wall thickening or obstruction. 3. Normal caliber abdominal aorta. No evidence for a dissection. 4. Patchy and linear bibasilar densities. This may represent atelectasis or a pneumonitis. 5. Stable low-density bilateral adrenal gland nodules. These favor benign adenomas. 6. Additional findings as described above. 08/02/23 12:11 CT Abd and Pelvis [CT abd pelvis wo con] Routine FINDINGS: Mural fibrofatty changes of left ventricular apex suggestive of prior myocardial infarction. Coronary arterial calcifications. Mild subsegmental left basilar atelectasis. No free air. The unenhanced plane, and pancreas are unremarkable. Unchanged size of the bilateral adrenal adenomata. Cholecystectomy. Unremarkable liver. No hydronephrosis or urolith identified. Urinary bladder wall thickening with partial distention. Unremarkable appearance of uterus and adnexa. Atherosclerosis of the abdominal aorta. Hemorrhage within the right retroperitoneal tissues is noted tracking along the external iliac artery anterior to the right femoral arteries. The largest hemorrhagic focus measures up to 2.8 x 2.3 x 3.8 cm and is new from prior. Trace hemorrhage within the dependent pelvis. No bowel obstruction or bowel wall thickening. Mild colonic fecal retention. The appendix is not diagnostically visualized. Tiny fat filled umbilical hernia. There is no acute fracture. Chronic-appearing thoracolumbar compression deformities. IMPRESSION: 1. Acute hemorrhage anterior to the right common femoral artery tracks along the external iliac vessels into the right retroperitoneum and dependent pelvis, pos sibly secondary to recent cardiac catheterization. Focal hematoma measures up to approximately 4 cm. 2. No bowel obstruction or bowel wall thickening. 3. Cholecystectomy. 4. Additional findings as above. 08/03/23 11:43 US arterial duplex LE RT Urgent IMPRESSION: 2.8 cm pseudoaneurysm involving the right common femoral artery. 08/04/23 14:30 US guide vascular access Routine IMPRESSION: Ultrasound guidance provided for a partially thrombosed right common femoral artery pseudoaneurysm. 08/05/23 08:32 US arterial duplex LE RT Routine IMPRESSION: Interval partial thrombosis of the persistent common femoral pseudoaneurysm. Hospital Course (1) Acute myocardial infarction involving right coronary artery: s/p TOMMIE to RCA occlusion with resolution of chest pain and symptoms on 07/28 Echo: Mild concentric LVH, no regional wall motion abnormalities, LV systolic function is normal with EF 55 to 60%, grade 1 diastolic dysfunction, and there is no significant valvular disease Cont DAPT with aspirin and ticagrelor, atorvastatin 80mg daily, metoprolol fowler ccinate 25 mg daily Appreciate cardiology input and recommendation -outpt follow up arranged for next week. (2) Abdominal pain: Acute on chronic abdominal discomfort and pain , diarrhea following travel to [facility] in April of this year Stool PCR negative C. difficile - ordered GI was consulted for help with working up this pain. She has a long-standing h/o IBS and sees [facility] for this for many years. Added gabapentin to se if this helps the femoral neuralgia post procedure. Unfortunately pt continues to have significant pain. Stool pcr - negative, H.pylori antigen negative and Giardia antigen negative. Pt does report loose stools lately (since being in [facility]). When holding linzess for 2 days - no BM -> restarted linzess Discussed again w/ GI on 08/06 - not likely pain from IBS but from hematoma - agree with pain management Acute intra-abdominal hemorrhage involving cardiac catheterization site around r ight common femoral artery Initial CT abd pelvis on 07/28/2023 reveals trace hemorrhage anterior to the common femoral vessels consistent with expected postcatheterization changes. Pain continued and a repeat CT scan showed: Acute hemorrhage anterior to the right common femoral artery tracks along the external iliac vessels into the right retroperitoneum and dependent pelvis, possibly secondary to recent cardiac catheterization. Focal hematoma measures up to 4 cm(2.8 x 2.3 x 3.8 cm).Stable low-density bilateral adrenal gland nodules. These favor benign adenomas. Hemoglobin remains stable Will continue with the current DAPT treatment, lovenox on hold Discussed w/ cardiology - Dr. 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 Interventional cardiology Dr. Leahy contacted - pt is s/p thrombin injection yesterday (08/04/2023) Repeat art. US obtained - Interval partial thrombosis of the persistent common femoral pseudoaneurysm. - Discussed w/ Dr. Leahy - recommends follow up in 2 weeks w/ repeat US. Pain likely secondary to some bleed/ hematoma noted on CT. Cont. pain control - obtained pain management consult - discussed in detail - starting Nucynta and stopping tramadol, cont. to monitor pt, hopefully will be able to DC tmrw 08/07 - Pt's pain is controlled w/ Nucynta. Will DC on tylenol, gabapentin and Nucynta. Outpt follow up arranged for next week. (3) Bradycardia: Transient third degree heart block related to ischemia. Currently in NSR after catheterization. Cont monitoring on telemetry. (4) Infiltrate of both lungs present on imaging study: patient does report a cough for two weeks and some chills with a generalized unwell feeling prior to arrival. Although this may just be an atypical presentation of pulmonary edema, she is not fluid overloaded and with symptoms, Rocephin/azithromycin started empirically. Blood cultures are preliminarily negative and she is not coughing, Procalcitonin is negative. Abx were stopped. Consider repeat CXR in 4 weeks to ensure resolution of infiltrates. (5) Irritable bowel syndrome: Continued Levsin and Bentyl PRN and daily Linzess per home regimen. Pt reports being on her meds for years and never having loose stools like this. Reports loose stools recently (since being in [facility]). Stool pcr - negative c. diff - ordered H. pylori antigen negative, Giardia antigen negative (6) Osteoporosis: Chronic, stable. Cont prolia per home regimen. (7) Anxiety: Chronic, stable. Managed by Dr. Majano (psychiatry). Cont Buspar, ativan, seroquel and Belsomra per home regimen. (8) Vitamin D insufficiency: Cont home supplementation weekly (9) DMII (diabetes mellitus, type 2): chronic, stable. Repeat A1C reflects good control at 6.1. Hold glipizide while inpatient. Cont with insulin coverage while inpatient. (10) Hypothyroidism: Chronic, stable. Repeat TSH reflects good control. Cont Midnight Thyroid 60mg daily per home regimen. Left adrenal nodularity - noted on CT - follow up as outpt (11) Adrenal nodule: Left adrenal nodularity - noted on CT - follow up as outpt per PCP. Total Time Total Time Spent Total Time Spent (In Minutes): 40 Discharge Plan Discharge Items Patient Disposition: Home - Self-Care Reason For Visit: STEMI Discharge Diagnosis: Acute AL involving RCA Pseudoaneurysm Hematoma Activity: Per Instructions section Non-emergency contact: Primary Care Provider and Sewing Machine Maintenance Mechanic Call non-emergency contact if: you have any medication questions and your symptoms worsen Follow-up/Referrals: Seth Oliver DO [Sewing Machine Maintenance Mechanic] - (Date & Time 08/12/2023 10:00 AM Provider Seth Oliver DO Department Cardiology, [facility] ) Paco Luis DO [Primary Care Provider] - (Date & Time 08/13/2023 1:40 PM Provider Paco Luis DO Department [facility] ) Sita Erickson CRNP [Nurse Practitioner] - (Date & Time 08/11/2023 12:30 PM Provider JENNIFER Bob Department Gastroenterology, [facility] ) Diet: Carb Consistent or DM2 and Heart Healthy Addtl Attending Provider Instructions: Follow up with primary care physician, judicial administrative assistant and biosolids management technician. Your appointments were scheduled, as above. Make sure to take aspirin and brilinta every day as prescribed. In addition, take metoprolol and atorvastatin. For pain, take tylenol 1000 mg three times a day, max daily dose 3,000 mg. In addition, take gabapentin 300mg twice a day. For more severe pain, take Nucynta as needed as prescribed. You will need to follow up for your pseudoaneurysm with an ultrasound in 2 weeks. Your health care providers will arrange this for you. Pending Studies at Discharge: No Stand-Alone Forms: [facility] [employer], Smoking Cessation Medications and DC Order Prescriptions: New Brilinta 90 mg Tablet 90 mg PO BID 30 Days Qty: 60 0RF atorvastatin 40 mg Tablet 80 mg PO QAM 30 Days Qty: 60 0RF metoprolol succinate 25 mg Tablet Extended Release 24 Hr 25 mg PO QAM 30 Days Qty: 30 0RF aspirin 81 mg Tablet,Delayed Release (Dr/Ec) 81 mg PO QAM Qty: 30 0RF gabapentin 300 mg Capsule 300 mg PO BID 8 Days Qty: 16 0RF Nucynta 50 mg Tablet 50 mg PO Q4H PRN (Reason: pain) Qty: 20 0RF Continued dicyclomine 20 mg tablet 20 mg PO QID PRN (Reason: IBS) hyoscyamine sulfate 0.125 mg tablet, sublingual 0.125 mg Sublingual QID PRN (Reason: Abdominal Pain) lorazepam 0.5 mg tablet 0.5 mg PO TID Belsomra 20 mg tablet 20 mg PO HS PRN (Reason: Sleep) glipizide 5 mg tablet extended release 24hr 5 mg PO DAILY omeprazole 40 mg capsule,delayed release(DR/EC) 40 mg PO DAILY progesterone micronized 200 mg capsule 400 mg PO HS buspirone 15 mg tablet 22.5 mg PO QID cholecalciferol (vitamin D3) 1,250 mcg (50,000 unit) capsule 50,000 unit PO FR@0900 thyroid (pork) [Midnight Thyroid] 60 mg tablet 60 mg PO DAILY Prolia 60 mg/mL Syringe See Rx Instructions .ROUTE .COMPLEX Rx Instructions: 60 mg subcutaneously every 6 months Linzess 290 mcg capsule 290 mcg PO DAILY quetiapine 300 mg tablet 300 mg PO HS Discharge Orders: Discharge Order (Routine); Ordered 08/07/23 Ordered By: Mak Donahue/Other Patient Handouts: Managing Type 2 Diabetes, Eating Heart-Healthy Foods Admission Data Admit Date/Time: 07/28/23 06:12 Attending Provider: Mak Burns Admit Provider: Seth Latham Primary Care Provider: Paco Luis Other Providers: Seth Latham ; Nishant Cotto ; Boogie Kang Seth D. ; Maurice Portillo ; Luca Lomeli ; Casey Catalan ; Ketan Marshall ; Codey Byers ; Sia Liu ; Ermelinda Colbert ; Jose Prater ; Jason Mcneill ; Judith Wilson ; Seth Oliver ; Connie Tompkins ; Ernst Ellis ; Tiara Ordonez
== END 2023-08-07 18:29 | disposition home or self-care (01) | DRG 247 ==
LOC: ED 03:43 → CC 05:52 → 1E 05:52 → SUATTDRO 06:12 → 4W 08-03 06:39
PROC: CLB.CCO (2023-07-28 06:00)

== ENCOUNTER 2025-03-19 09:56 | Observation (INO) ==
--- NOTE | 2025-03-19 11:22 | Emergency Department Note ---
Impression & Plan Confusion, Benzodiazepine dependence, Diarrhea ED Provider Note NAME: BRADY KUMAR AGE: 59 SEX: F : 1965 ARRIVES VIA: Walk-In INFORMANT: Patient ED PROVIDER(S): Osmar Galvan MD CHIEF COMPLAINT: Confusion PLAN: Disposition: Admit MEDICAL DECISION MAKING: The patient is a pleasant 59-year-old woman with past medical history of hypothyroidism, type 2 diabetes, anxiety, benzodiazepine dependence, IBS, osteoporosis who presents to the emergency department via walk-in accompanied by her for evaluation of progressive worsening confusion where she has been disoriented and speaking of nonrelevant topics out of context. They wondered whether or not her symptoms could be related to new medications which she started for treatment/eradication of H. pylori following having endoscopy. They deny any fevers, cough, congestion, or urinary symptoms. She reports some ongoing upper abdominal discomfort. She reports she had been constipated and used stool softener and subsequently had diarrhea. On evaluation patient is fatigued appearing but in no acute distress, afebrile heart in 100s and vital signs otherwise stable. She appears clinically dry. Speech is fluent. She exhibits no overt aphasia. She does appear to have some confusion/disorientation. Exam is otherwise unremarkable. EKG without overt acute ischemia. CXR negative for acute cardiopulmonary process per my personal preliminary review/interpretation. WBC, H/H and platelets within normal limits. Chemistry without significant metabolic acidosis. Electrolytes and LFTs unremarkable. High-sensitivity troponin 4.3, within normal limits. Lipase is normal. UA without evidence of infection. Urine drug screen was negative. Medical alcohol was undetectable. CT of the head and CT of the head and neck were performed were negative for ICH, ischemia or severe narrowing occlusion of large vessels. CT of the abdomen pelvis was negative for acute intra-abdominal process. Findings reviewed the patient and her at the bedside. Given the patient continues to have mild confusion from her baseline without clear explanation we did agree to proceed with admission at this time for further assessment. Of note, the patient is prescribed Ativan and did request to RN that she be given her dose that she did not take this today. She asked that this not be mentioned in front of her as she reports she does not know she has been on Ativan. Case was discussed with Dr. Holm, [facility] hospitalist, who will evaluate the patient for admission. Triage Nursing notes reviewed and agree them. Prior/external medical records reviewed Vital Signs: reviewed Differential diagnosis: Infection, hypoglycemia, electrolyte abnormalities, overdose, toxicologic, cardiac sources, intracerebral event, neurologic, trauma, as well as other pathologies. ER treatment provided: See below. Diagnostics interpreted by me: ECG: Normal sinus rhythm, 85 bpm, no ectopy, no overt ST elevation or depression, QTc 433, QRS 86. Cardiac Monitoring: An order for continuous cardiac monitoring was placed and demonstrated normal sinus rhythm, 85 bpm, no ectopy. Laboratory studies: See below Imaging studies: See below Consultation(s): Dr. Holm, [facility] Hospitalist HPI: Per MDM. ROS: See above HPI for pertinent positives & negatives. A total of 10 systems reviewed and were otherwise negative. VITALS:See Below PHYSICAL EXAMINATION: GENERAL: Awake, alert, fatigued-appearing, in no distress HENT: Normocephalic, atraumatic. Oropharynx with dry mucous membranes and otherwise unremarkable. EYES: Normal conjunctiva. Sclera non-icteric. EOMI. No nystamgus. PEARRL. NECK: Supple. No nuchal rigidity. FROM. No JVD. RESPIRATORY: Clear to auscultation. CARDIAC: Tachycardic rate, normal rhythm. Extremities warm and well perfused. Pulses equal. ABDOMEN: Soft, non-distended. No tenderness to palpation. No rebound or guarding. No masses. MUSCULOSKELETAL: Chest examination reveals no tenderness. The back is symmetrical on inspection without obvious abnormality. There is no CVA tenderness to palpation. No joint edema. LOWER EXTREMITIES: Calves are equal size bilaterally and non-tender. No edema. No discoloration. NEURO: Cranial nerves II-XII grossly intact. Speech is fluent. No overt aphasia. Mild confusion/disorientation. 5/5 strength and SILT x 4 extremities. Intact [id number]. SKIN: No rash or jaundice noted. Osmar Galvan MD Past Med/Surg History Problem List (Updated 03/22/25 @ 21:14 by Osmar Galvan MD) Diarrhea (Acute) Ground glass opacity present on imaging of lung H. pylori infection Toxic encephalopathy Confusion (Acute) Confusion Pseudoaneurysm Mobitz type 1 second degree AV block (Acute) Acute RI, inferior wall (Acute) Hypothyroidism DMII (diabetes mellitus, type 2) Adrenal nodule Dyslipidemia Bradycardia Abdominal pain Acute myocardial infarction involving right coronary artery Infiltrate of both lungs present on imaging study Pneumonia (Acute) Contusion of rib on right side (Acute) Calcific bursitis (Acute) Benzodiazepine dependence (Acute) Irritable bowel syndrome Compression fracture of lumbar vertebra (Acute) Back pain (Acute) Lumbar compression fracture (Acute) Hematoma pseudoaneurysm of femoral artery following cardiac catheterization Anxiety (Acute) Vitamin D insufficiency Osteoporosis Medical History Stress fracture Depressed PTSD (post-traumatic stress disorder) Surgical History H/O kyphoplasty History of heart artery stent History of cardiac cath Social History Smoking Status: Never smoker Tobacco Type: Cigarettes Second Hand Exposure: No; Do You Dip or Chew Tobacco: No; Hx Alcohol Use: Yes Alcohol type: wine Hx Substance Use: No Preferred Language: Kosovan Communication Ability: Effective Director Strategy Required: Yes Beliefs That Will Affect Care: None Current Living Situation: Spouse Current Living Situation Comment: lives with spouse in 2 story house current occupation: retired Feels Safe at Home: Yes Assistive Devices: None Allergies Allergies Allergy/AdvReac Type Severity Reaction Status Date / Time egg Allergy Unknown HIVES, Verified 09/05/20 10:21 FACIAL SWELLING metronidazole AdvReac Severe Confusion Verified 03/20/25 10:54 clarithromycin AdvReac Intermediate Gastrointestinal Verified 03/20/25 10:54 Upset codeine AdvReac Unknown ABDOMINAL Verified 09/05/20 10:21 PAIN-IBS morphine AdvReac Unknown ABDOMINAL Verified 09/05/20 10:21 PAIN-IBS Opioids - Morphine Analogues AdvReac Unknown Nausea Verified 07/28/23 06:39 Home Meds Home Medications Medication Instructions Recorded Confirmed dicyclomine 20 mg tablet 20 mg PO QID PRN IBS 10/03/18 03/19/25 lorazepam 0.5 mg tablet 0.5 mg PO TID PRN anxiety 09/05/20 03/19/25 suvorexant 20 mg tablet (Belsomra) 20 mg PO HS PRN Sleep 09/05/20 03/19/25 buspirone 15 mg tablet 22.5 mg PO QID 07/28/23 03/19/25 cholecalciferol (vitamin D3) 1,250 50,000 unit PO FR@0900 07/28/23 03/19/25 mcg (50,000 unit) capsule denosumab 60 mg/mL subcutaneous See Rx Instructions .Route .COMPLEX 07/28/23 03/19/25 syringe (Prolia) omeprazole 40 mg capsule,delayed 40 mg PO DAILY 07/28/23 03/19/25 release progesterone micronized 200 mg 400 mg PO HS PRN Other 07/28/23 03/19/25 capsule linaclotide 290 mcg capsule 290 mcg PO DAILY 07/29/23 03/19/25 (Linzess) quetiapine 300 mg tablet 300 mg PO HS 07/30/23 03/19/25 tirzepatide 7.5 mg/0.5 mL 7.5 mg subcut WK 03/19/25 03/19/25 subcutaneous pen injector (Black) Previous Rx's Medication Instructions Recorded aspirin 81 mg tablet,delayed 81 mg PO QAM #30 tabs 08/07/23 release atorvastatin 80 mg tablet 80 mg PO DAILY #30 tabs 08/07/23 amoxicillin 500 mg tablet 1,000 mg (2 x 500 mg) PO TID 14 03/20/25 days #84 tabs vonoprazan 20 mg tablet (Voquezna) 20 mg PO BID 14 days #28 tabs 03/20/25 Results & Data (ED) Vital Signs Vital Signs - 24 hr 03/19/25 10:01 03/19/25 10:18 03/19/25 10:21 Temperature 36.5 C Temperature Source Oral Pulse Rate 105 H 94 H 83 Pulse Rate [Apical] Pulse Rate from SpO2 Sensor Respiratory Rate 18 16 Respiratory Effort / Characteristics Respiratory Depth Respiratory Pattern Blood Pressure 138/79 139/86 Blood Pressure [Right Arm] Blood Pressure Mean 98 103 Blood Pressure Mean [Right Arm] Blood Pressure Position Sitting Pulse Oximetry 98 95 Oxygen Delivery Method Room Air Sepsis Recent Fever Within 48 Hours No Sepsis New/Unexplained Change in Mental Status No Sepsis Action Taken by Nursing No Action Required 03/19/25 10:33 03/19/25 10:33 03/19/25 11:03 Temperature Temperature Source Pulse Rate 78 77 Pulse Rate [Apical] Pulse Rate from SpO2 Sensor 77 Respiratory Rate 16 18 Respiratory Effort / Characteristics Respiratory Depth Respiratory Pattern Blood Pressure 140/82 154/86 H Blood Pressure [Right Arm] Blood Pressure Mean 101 108 Blood Pressure Mean [Right Arm] Blood Pressure Position Pulse Oximetry 99 96 97 Oxygen Delivery Method Room Air Room Air Room Air Sepsis Recent Fever Within 48 Hours Sepsis New/Unexplained Change in Mental Status Sepsis Action Taken by Nursing 03/19/25 11:24 03/19/25 12:39 03/19/25 14:57 Temperature Temperature Source Pulse Rate 89 71 Pulse Rate [Apical] Pulse Rate from SpO2 Sensor Respiratory Rate 22 18 Respiratory Effort / Characteristics Respiratory Depth Respiratory Pattern Blood Pressure 161/94 H 148/77 H Blood Pressure [Right Arm] Blood Pressure Mean 116 100 Blood Pressure Mean [Right Arm] Blood Pressure Position Pulse Oximetry 99 99 99 Oxygen Delivery Method Room Air Room Air Room Air Sepsis Recent Fever Within 48 Hours Sepsis New/Unexplained Change in Mental Status Sepsis Action Taken by Nursing 03/19/25 15:00 03/19/25 16:00 03/19/25 16:40 Temperature Temperature Source Pulse Rate 78 Pulse Rate [Apical] 80 80 Pulse Rate from SpO2 Sensor Respiratory Rate 18 18 Respiratory Effort / Characteristics Non-Labored Spontaneous Non-Labored Spontaneous Respiratory Depth Normal Normal Respiratory Pattern Regular Regular Blood Pressure Blood Pressure [Right Arm] 153/88 H 164/94 H Blood Pressure Mean Blood Pressure Mean [Right Arm] 109 117 Blood Pressure Position Pulse Oximetry 98 96 Oxygen Delivery Method Room Air Room Air Sepsis Recent Fever Within 48 Hours Sepsis New/Unexplained Change in Mental Status Sepsis Action Taken by Nursing Laboratory Data Attestation: I reviewed the patient's lab results. 03/20/25 04:07 03/20/25 04:07 Lab Results 03/19/25 03/19/25 Range/Units 10:15 10:22 WBC 8.54 (4.8-10.8) K/ul RBC 4.90 (4.20-5.40) M/uL Hgb 13.6 (12.0-16.0) g/dl Hct 41.7 (37.0-47.0) % MCV 85.1 (80.0-100.0) fL MCH 27.8 (25.0-34.0) pg MCHC 32.6 (32.0-36.0) g/dL RDW Std Deviation 46.7 H (36.4-46.3) fL RDW Coeff of Sharla 15.1 H (11.5-14.5) % Plt Count 283 (130-400) K/uL MPV 10.4 (9.4-12.4) fL Immature Gran % (Auto) 0.2 % Neut % (Auto) 50.9 % Lymph % (Auto) 38.9 % Bradford % (Auto) 6.3 % Eos % (Auto) 3.2 % Baso % (Auto) 0.5 % Neut # (Auto) 4.35 (1.40-6.50) K/uL Lymph # (Auto) 3.32 (1.20-3.40) K/uL Bradford # (Auto) 0.54 (0.11-0.59) K/uL Eos # (Auto) 0.27 (0.00-0.50) K/uL Baso # (Auto) 0.04 (0.00-0.20) K/uL Immature Gran # (Auto) 0.02 (0.01-0.20) K/uL PT 10.3 (9.0-12.0) Seconds INR 0.9 (0.9-1.1) Sodium 142 (136-145) mmol/L Potassium 4.0 (3.5-5.1) mmol/L Chloride 114 H (98-107) mmol/L Carbon Dioxide 20 L (21-32) mmol/L Anion Gap 8 (3-11) BUN 22 (6-23) mg/dl Creatinine 0.77 (0.6-1.2) mg/dl Est Cr Clr Drug Dosing 63.2 ml/min eGFR 87.71 BUN/Creatinine Ratio 28.6 H (10-20) Glucose 102 H (70-99(Fasting)) mg/dl Calcium 9.1 (8.6-10.3) mg/dl Phosphorus 3.5 (2.5-4.9) mg/dl Magnesium 2.0 (1.7-2.4) mg/dl Total Bilirubin 0.4 (0.2-1.0) mg/dl AST 14 (13-39) U/L ALT 16 (7-52) U/L Alkaline Phosphatase 61 (34-104) U/L Troponin I High Sens 4.3 (0-14) pg/ml Total Protein 7.4 (6.0-8.3) gm/dl Albumin 4.3 (3.4-5.0) gm/dl Globulin 3.1 (2.5-4.0) gm/dl Albumin/Globulin Ratio 1.4 (0.9-2) Lipase 32 (11-82) U/L Urine Color Yellow Urine Appearance Clear (Clear) Urine pH 5.5 (4.5-7.5) Ur Specific [place] 1.017 (1.000-1.030) Urine Protein Negative (Negative) Urine Glucose (UA) Negative (Negative) Urine Ketones Negative (Negative) Urine Blood Negative (Negative) Urine Nitrite Negative (Negative) Urine Bilirubin Negative (Negative) Urine Urobilinogen Negative (Negative) Ur Leukocyte Esterase Negative (Negative) Urine Opiates Screen Neg (Neg) Ur Methadone, Qual Neg (Neg) Urine Fentanyl Screen Neg (Neg) Urine Barbiturates Neg (Neg) Ur Phencyclidine (PCP) Neg (Neg) U Amphetamin/Meth Scrn Neg (Neg) MDMA (Ecstasy) Screen Neg (Neg) U Benzodiazepines Scrn Neg (Neg) Ur Cocaine Metabolite Neg (Neg) U Marijuana (THC) Screen Neg (Neg) Ethyl Alcohol mg/dL < 10.0 (<10.0) mg/dl Administered Medications Discontinued Medications Aspirin (Aspirin 81 Mg Ectab) 81 mg PO QAM [facility] Stop: 04/19/25 08:59 Last Admin: 03/20/25 08:07 Dose: 81 mg Documented By: BRYAN Atorvastatin Calcium (Atorvastatin 40 Mg Tab) 80 mg PO DAILY [facility] Stop: 04/19/25 08:59 Last Admin: 03/20/25 08:06 Dose: 80 mg Documented By: BRYAN Buspirone HCl (Buspirone 7.5 Mg Tab) 22.5 mg PO QID [facility] Stop: 04/18/25 20:59 Last Admin: 03/20/25 12:08 Dose: 22.5 mg Documented By: Admin: 03/20/25 08:06 Dose: 22.5 mg Documented By: Admin: 03/19/25 20:48 Dose: 22.5 mg Documented By: BESSY Gadobutrol (Gadobutrol 65ml Vial) 6 ml IV ONCE ONE Stop: 03/19/25 21:35 Last Admin: 03/19/25 21:34 Dose: 6 ml Documented By: NORMAN Heparin Sodium (Porcine) (Heparin Sod 5,000 Unit/0.5 Ml Vial) 5,000 units SQ Q8 [facility] Stop: 04/18/25 21:59 Last Admin: 03/20/25 05:31 Dose: Not Given Documented By: Admin: 03/19/25 22:54 Dose: Not Given Documented By: STARLA Sodium Chloride (Nss) 1,000 mls @ 999 mls/hr IV .Q1H1M ONE Stop: 03/19/25 12:14 Last Infusion: 03/19/25 12:48 Dose: Infused Documented By: Admin: 03/19/25 11:34 Dose: 999 mls/hr Documented By: Acetaminophen (Ofirmev) 1,000 mg in 100 mls @ 400 mls/hr IV NOW STA Stop: 03/19/25 11:35 Last Infusion: 03/19/25 12:09 Dose: Infused Documented By: Admin: 03/19/25 11:34 Dose: 400 mls/hr Documented By: Famotidine (Pepcid 20mg Iv Push) 20 mg in 5 mls @ 2.5 mls/min IV NOW STA Stop: 03/19/25 11:22 Last Admin: 03/19/25 11:34 Dose: 2.5 mls/min Documented By: Sodium Chloride (Nss) 1,000 mls @ 80 mls/hr IV .[id number] STEPHAN Stop: 03/20/25 17:29 Last Admin: 03/20/25 05:31 Dose: Not Given Documented By: Admin: 03/19/25 22:53 Dose: Not Given Documented By: STARLA Ioversol (Optiray 320 125ml) 120 ml IV ONCE ONE Stop: 03/19/25 12:58 Last Admin: 03/19/25 12:57 Dose: 120 ml Documented By: KIRK Linaclotide (Linaclotide 145 Mcg Capsule) 290 mcg PO DAILY STEPHAN Stop: 04/19/25 08:59 Last Admin: 03/20/25 08:07 Dose: 290 mcg Documented By: BRYAN Lorazepam (Lorazepam 2 Mg/1 Ml Vial) 0.25 mg IV NOW STA Stop: 03/19/25 12:50 Last Admin: 03/19/25 15:54 Dose: 0.25 mg Documented By: JOSHUA Lorazepam (Lorazepam 2 Mg/1 Ml Vial) Confirm Administered Dose 2 mg .ROUTE .STK- MED ONE Stop: 03/19/25 15:51 Last Admin: 03/19/25 15:54 Dose: Not Given Documented By: JOSHUA Lorazepam (Lorazepam 0.5 Mg Tab) 0.5 mg PO TID PRN PRN Reason: anxiety Stop: 04/18/25 20:07 Last Admin: 03/20/25 08:20 Dose: 0.5 mg Documented By: Admin: 03/19/25 20:49 Dose: 0.5 mg Documented By: BESSY Ondansetron HCl (Ondansetron Inj 2 Mg/Ml 2 Ml Vial) 4 mg IV NOW STA Stop: 03/19/25 11:22 Last Admin: 03/19/25 11:34 Dose: 4 mg Documented By: Pantoprazole Sodium (Pantoprazole 40 Mg Tab) 40 mg PO DAILY STEPHAN Stop: 04/19/25 08:59 Last Admin: 03/20/25 08:07 Dose: 40 mg Documented By: BRYAN Quetiapine Fumarate (Quetiapine Fumarate 300 Mg Tablet) 300 mg PO HS STEPHAN Stop: 04/18/25 20:59 Last Admin: 03/19/25 20:49 Dose: 300 mg Documented By: BESSY Suvorexant (Suvorexant 10mg Tab) 10 mg PO HS STEPHAN Stop: 03/19/25 22:16 Last Admin: 03/19/25 22:55 Dose: Not Given Documented By: STARLA Suvorexant (Suvorexant Tab) 1 PO HS STEPHAN Stop: 03/19/25 22:31 Last Admin: 03/19/25 22:34 Dose: 1 Documented By: STARLA Imaging Data Radiologist's Impression: Chest X-Ray 03/19/25 11:13 XR chest 1V portable HISTORY: 59 years-old Female Chest pain, nonspecific COMPARISON: 08/10/2023 TECHNIQUE: AP view of the chest FINDINGS: Cardiomediastinal and hilar silhouettes are within normal limits. Atherosclerosis of the aorta. No pneumothorax, pleural effusion or airspace consolidation. The bones of the chest appear grossly intact. IMPRESSION: No acute process. ACT 112: Negative or not required by law. The above report was generated using voice recognition software. It may contain grammatical, syntax or spelling errors. Electronically signed by: Jose Stahl M.D. 03/19/2025 12:23 PM Abdomen/Pelvis CT 03/19/25 11:[address] WITH IV CONTRAST HISTORY: Acute generalized abdominal pain with diarrhea abd pain, diarrhea, nausea TECHNIQUE: Multiaxial CT images of the abdomen and pelvis were performed following the IV administration of 120 cc of Optiray, A dose lowering technique was utilized adhering to the principles of ALARA. COMPARISON STUDY: 08/02/2023 FINDINGS: No acute process identified within the imaged lower chest. No pneumatosis or pneumoperitoneum. Unremarkable spleen, and pancreas. There is a lobular soft tissue attenuating lesion within the subcapsular left hepatic lobe on image 42 series 11 measuring 2.3 x 1.4 cm with Hounsfield 57, likely unchanged from the prior study. Patency of the hepatic and portal veins. Cholecystectomy with likely postsurgical biliary ductal dilation again noted. Stable appearance of the adrenal glands with probable adenomata. No hydronephrosis. Unremarkable urinary bladder. Subcentimeter probable cysts of the left kidney. Atherosclerosis of the aorta without aneurysm. No lymphadenopathy. There is no bowel obstruction or bowel wall thickening. Diastases recti with tiny fat filled umbilical and unchanged mild adjacent inflammatory stranding/postoperative change. Scattered large and small bowel air-fluid levels. The appendix is not seen. Degenerative changes of the spine, pelvis and hips. Chronic thoracolumbar compression deformities. IMPRESSION: 1. No bowel obstruction or bowel wall thickening. 2. Cholecystectomy with unchanged biliary ductal dilation. 3. Diastases recti with tiny fat filled umbilical hernia. 4. Chronic findings as above. ACT 112: Negative or not required by law. The above report was generated using voice recognition software. It may contain grammatical, syntax or spelling errors. Electronically signed by: Jose Stahl M.D. 03/19/2025 1:[address] 03/19/25 11:26 CT SCAN OF THE BRAIN WITHOUT IV CONTRAST CLINICAL HISTORY: Altered mental status. Confusion. COMPARISON STUDY: Head CT September 05, 2020. TECHNIQUE: Unenhanced axial CT scan of the brain was performed from the vertex to the skull base. A dose lowering technique was utilized adhering to the principles of ALARA. FINDINGS: Brain parenchyma: No acute intracranial hemorrhage, midline shift or mass effect is present. Valle-white matter differentiation is preserved. There are no extra- axial fluid collections. There are no findings to suggest acute dural sinus thrombosis or acute territorial infarct. Ventricles, sulci, cisterns: There is no hydrocephalus. The basal cisterns are patent. Calvarium: Unremarkable. Sinuses and mastoids: The visualized paranasal sinuses are clear. The mastoid air cells are well pneumatized. Orbits: The bony orbits are grossly intact. IMPRESSION: No acute intracranial findings. ACT 112: Negative or not required by law. Electronically signed by: Stephen Sosa M.D. 03/19/2025 12:45 PM Head CTA 03/19/25 11:26 CTA ANGIOGRAPHY OF THE HEAD CLINICAL HISTORY: Confusion. COMPARISON STUDY: Head CT September 05, 2020. TECHNIQUE: Helical axial images of the head were obtained following uneventful intravenous administration of Optiray. Sagittal and coronal reconstructions were viewed as well as maximal intensity projections on an independent 3-D workstation. Automated exposure control was utilized for the study. A dose lowering technique was utilized adhering to the principles of ALARA. FINDINGS: Please note that the head CT will be reported separately. No acute intracranial hemorrhage, midline shift or mass effect is present. Ventricular system is unremarkable. Basal cisterns are patent. There are no extra axial collections. The bilateral M1, M2, A1 and A2 segments are patent. No intracranial aneurysm, dissection or aneurysm. There is moderate calcified atherosclerotic plaque within the cavernous carotids without significant stenosis. Posterior circulation is intact. IMPRESSION: No large vessel occlusion. No intracranial aneurysm. ACT 112: Negative or not required by law. Electronically signed by: Stephen Sosa M.D. 03/19/2025 12:56 PM Neck CTA 03/19/25 11:26 CT angio neck with con CLINICAL HISTORY: 59 years-old Female with confusion. Acutely altered mental status COMPARISON STUDY: Head CT and CTA head studies of same day, CTA chest 07/28/2023, chest CT 02/07/2017 TECHNIQUE: Following the IV administration of Optiray, CT angiogram of the neck was performed from the aortic arch to the skull base. Images are reviewed in the axial, sagittal, and coronal planes. 3-D MIPS images are created and assessed. IV contrast was administered without complication. All measurements were calculated based on NASCET criteria. A dose lowering technique was utilized adhering to the principles of ALARA. CT DOSE: 2300.99 mGy.cm FINDINGS: Three-vessel morphology of the thoracic aortic arch. There is patency of the innominate and subclavian arteries. Moderate atherosclerosis of the carotid bulbs causes less than 50% narrowing bilaterally. The imaged internal carotid arteries are patent. The vertebral arteries are codominant and widely patent bilaterally. Patent basilar artery. 6 mm groundglass nodular focus of the left upper lobe on image 61 series 7, not clearly seen on the prior studies. There are a few additional similar appearing groundglass subcentimeter nodular foci seen within the right upper lobe. No acute cervical spine fracture. Multilevel moderate to severe facet arthrosis. IMPRESSION: 1. CTA of the neck demonstrates no aneurysm, dissection, high-grade stenosis or arterial occlusion. 2. Subtle subcentimeter groundglass nodular foci of the upper lungs, likely infectious or inflammatory. A 3-6 month follow-up chest CT is recommended. ACT 112: Negative or not required by law. The above report was generated using voice recognition software. It may contain grammatical, syntax or spelling errors. Electronically signed by: Jose Stahl M.D. 03/19/2025 12:59 PM Discharge Plan Visit Data Chief Complaint: Confusion Stated Complaint: CONFUSED/DELUSIONAL/MED RELATED? ED Provider: Osmar Galvan Discharge Problem: Confusion, Benzodiazepine dependence, Diarrhea Patient Disposition: Admitted As Inpatient Condition: Fair Discharge Instructions Interventions: ED Discharge Assessment Last Done: 03/19/25 20:09 Discharge Problem: Diarrhea Qualifiers: Diarrhea type: unspecified type Qualified Code(s): R19.7 - Diarrhea, unspecified
[2025-03-19 11:31] LABS: Appearance Urine Clear (Clear); Bilirubin Urine Negative (Negative); Blood Urine Negative (Negative); Color Urine Yellow; Glucose Urine UA Negative (Negative); Ketones Urine Negative (Negative); Leukocyte Esterase Urine Negative (Negative); Nitrite Urine Negative (Negative); Protein Urine Negative (Negative); Specific Gravity Urine 1.017 (1.000-1.030); Urobilinogen Urine Negative (Negative); pH Urine 5.5 (4.5-7.5)
[2025-03-19 11:32] LABS: Basophils # (auto) 0.04 K/uL (0.00-0.20); Basophils % (auto) 0.5 %; Eosinophils # (auto) 0.27 K/uL (0.00-0.50); Eosinophils % (auto) 3.2 %; Hematocrit (blood only) 41.7 % (37.0-47.0); Hemoglobin 13.6 g/dl (12.0-16.0); Immature Granulocytes # (auto) 0.02 K/uL (0.01-0.20); Immature Granulocytes % (auto) 0.2 %; Lymphocytes # (auto) 3.32 K/uL (1.20-3.40); Lymphocytes % (auto) 38.9 %; Mean Corpuscular Hemoglobin 27.8 pg (25.0-34.0); Mean Corpuscular Hgb Conc 32.6 g/dL (32.0-36.0); Mean Corpuscular Volume 85.1 fL (80.0-100.0); Mean Platelet Volume 10.4 fL (9.4-12.4); Monocytes # (auto) 0.54 K/uL (0.11-0.59); Monocytes % (auto) 6.3 %; Neutrophils # (auto) 4.35 K/uL (1.40-6.50); Neutrophils % (auto) 50.9 %; Platelet Count 283 K/uL (130-400); RDW Coefficient of Variation 15.1 % (11.5-14.5); RDW Standard Deviation 46.7 fL (36.4-46.3); White Blood Count 8.54 K/ul (4.8-10.8)
[2025-03-19] MEDS: ACETAMINOPHEN 1,000 MG/100 ML VIAL IV STA (11:34)
[2025-03-19] MEDS: ONDANSETRON INJ 2 MG/ML 2 ML VIAL IV STA (11:34)
[2025-03-19] MEDS: FAMOTIDINE 20MG IV PUSH 20 MG/5 ML SYR IV STA (11:34)
[2025-03-19] MEDS: SODIUM CHLORIDE 0.9% 1,000 ML IV ONE (11:34)
[2025-03-19 11:57] LABS: Albumin Globulin Ratio 1.4 (0.9-2); Albumin Level 4.3 gm/dl (3.4-5.0); BUN Creatinine Ratio 28.6 (10-20); Bilirubin,Total 0.4 mg/dl (0.2-1.0); Calcium 9.1 mg/dl (8.6-10.3); Creatinine Clr Calc Pharmacy 63.2 ml/min; Globulin 3.1 gm/dl (2.5-4.0); Phosphorus 3.5 mg/dl (2.5-4.9); Total Protein 7.4 gm/dl (6.0-8.3)
[2025-03-19 12:00] LABS: Troponin I High Sensitivity 4.3 pg/ml (0-14)
[2025-03-19 12:05] LABS: INR 0.9 (0.9-1.1); Prothrombin Time 10.3 Seconds (9.0-12.0)
--- NOTE | 2025-03-19 12:24 | XRay Report ---
XR chest 1V portable HISTORY: 59 years-old Female Chest pain, nonspecific COMPARISON: 08/10/2023 TECHNIQUE: AP view of the chest FINDINGS: Cardiomediastinal and hilar silhouettes are within normal limits. Atherosclerosis of the aorta. No pn eumothorax, pleural effusion or airspace consolidation. The bones of the chest appear grossly intact. IMPRESSION: No acute process. ACT 112: Negative or not required by law. The above report was generated using voice recognition software. It may contain grammatical, syntax o r spelling errors. Electronically signed by: Jose Stahl M.D. 03/19/2025 12:23 PM
--- NOTE | 2025-03-19 12:46 | CT Scan Report ---
CT SCAN OF THE BRAIN WITHOUT IV CONTRAST CLINICAL HISTORY: Altered mental status. Confusion. COMPARISON STUDY: Head CT September 05, 2020. TECHNIQUE: Unenhanced axial CT scan of the brain was performed from the vertex to the skull base. A dose lowering technique was utilized adhering to the principles of ALARA. FINDINGS: Brain parenchyma: No acute intracranial hemorrhage, midline shift or mass effect is present. Valle-whi te matter differentiation is preserved. There are no extra-axial fluid collections. There are no find ings to suggest acute dural sinus thrombosis or acute territorial infarct. Ventricles, sulci, cisterns: There is no hydrocephalus. The basal cisterns are patent. Calvarium: Unremarkable. Sinuses and mastoids: The visualized paranasal sinuses are clear. The mastoid air cells are well pneu matized. Orbits: The bony orbits are grossly intact. IMPRESSION: No acute intracranial findings. ACT 112: Negative or not required by law. Electronically signed by: Stephen Sosa M.D. 03/19/2025 12:45 PM
[2025-03-19] MEDS: OPTIRAY 320 125ml IV ONE (12:57)
--- NOTE | 2025-03-19 12:59 | CT Scan Report ---
CTA ANGIOGRAPHY OF THE HEAD CLINICAL HISTORY: Confusion. COMPARISON STUDY: Head CT September 05, 2020. TECHNIQUE: Helical axial images of the head were obtained following uneventful intravenous administr ation of Optiray. Sagittal and coronal reconstructions were viewed as well as maximal intensity proje ctions on an independent 3-D workstation. Automated exposure control was utilized for the study. A dose lowering technique was utilized adhering to the principles of ALARA. FINDINGS: Please note that the head CT will be reported separately. No acute intracranial hemorrhage, midline shift or mass effect is present. Ventricular system is unremarkable. Basal cisterns are herrera nt. There are no extra axial collections. The bilateral M1, M2, A1 and A2 segments are patent. No int racranial aneurysm, dissection or aneurysm. There is moderate calcified atherosclerotic plaque within the cavernous carotids without significant stenosis. Posterior circulation is intact. IMPRESSION: No large vessel occlusion. No intracranial aneurysm. ACT 112: Negative or not required by law. Electronically signed by: Stepehn Sosa M.D. 03/19/2025 12:56 PM
--- NOTE | 2025-03-19 13:01 | CT Scan Report ---
CT angio neck with con CLINICAL HISTORY: 59 years-old Female with confusion. Acutely altered mental status COMPARISON STUDY: Head CT and CTA head studies of same day, CTA chest 07/28/2023, chest CT 02/07/2017 T ECHNIQUE: Following the IV administration of Optiray, CT angiogram of the neck was performed from the aortic arch to the skull base. Images are reviewed in the axial, sagittal, and coronal planes. 3-D M IPS images are created and assessed. IV contrast was administered without complication. All measureme nts were calculated based on NASCET criteria. A dose lowering technique was utilized adhering to the principles of ALARA. CT DOSE: 2300.99 mGy.cm FINDINGS: Three-vessel morphology of the thoracic aortic arch. There is patency of the innominate and subclavia n arteries. Moderate atherosclerosis of the carotid bulbs causes less than 50% narrowing bilaterally. The imaged internal carotid arteries are patent. The vertebral arteries are codominant and widely pa tent bilaterally. Patent basilar artery. 6 mm groundglass nodular focus of the left upper lobe on image 61 series 7, not clearly seen on the p rior studies. There are a few additional similar appearing groundglass subcentimeter nodular foci see n within the right upper lobe. No acute cervical spine fracture. Multilevel moderate to severe facet arthrosis. IMPRESSION: 1. CTA of the neck demonstrates no aneurysm, dissection, high-grade stenosis or arterial occlusion. 2. Subtle subcentimeter groundglass nodular foci of the upper lungs, likely infectious or inflammator y. A 3-6 month follow-up chest CT is recommended. ACT 112: Negative or not required by law. The above report was generated using voice recognition software. It may contain grammatical, syntax o r spelling errors. Electronically signed by: Jose Stahl M.D. 03/19/2025 12:59 PM
[2025-03-19 13:20] LABS: Amphetamines+Metham, Urine Neg (Neg); Barbiturates, Urine Neg (Neg); Benzodiazepine, Urine Neg (Neg); Cocaine, Urine Neg (Neg); Fentanyl, Urine Neg (Neg); MDMA (Ecstacy), Urine Neg (Neg); Marijuana, Urine Neg (Neg); Methadone, Urine Neg (Neg); Opiate, Urine Neg (Neg); Phencyclidine, Urine Neg (Neg)
--- NOTE | 2025-03-19 13:23 | CT Scan Report ---
ABDOMEN AND PELVIS CT WITH IV CONTRAST HISTORY: Acute generalized abdominal pain with diarrhea abd pain, diarrhea, nausea TECHNIQUE: Multiaxial CT images of the abdomen and pelvis were performed following the IV administrat ion of 120 cc of Optiray, A dose lowering technique was utilized adhering to the principles of ALARA . COMPARISON STUDY: 08/02/2023 FINDINGS: No acute process identified within the imaged lower chest. No pneumatosis or pneumoperitone um. Unremarkable spleen, and pancreas. There is a lobular soft tissue attenuating lesion within the s ubcapsular left hepatic lobe on image 42 series 11 measuring 2.3 x 1.4 cm with Hounsfield 57, likely unchanged from the prior study. Patency of the hepatic and portal veins. Cholecystectomy with likely postsurgical biliary ductal dilation again noted. Stable appearance of the adrenal glands with probab le adenomata. No hydronephrosis. Unremarkable urinary bladder. Subcentimeter probable cysts of the left kidney. Ath erosclerosis of the aorta without aneurysm. No lymphadenopathy. There is no bowel obstruction or andi l wall thickening. Diastases recti with tiny fat filled umbilical and unchanged mild adjacent inflamm atory stranding/postoperative change. Scattered large and small bowel air-fluid levels. The appendix is not seen. Degenerative changes of the spine, pelvis and hips. Chronic thoracolumbar compression de formities. IMPRESSION: 1. No bowel obstruction or bowel wall thickening. 2. Cholecystectomy with unchanged biliary ductal dilation. 3. Diastases recti with tiny fat filled umbilical hernia. 4. Chronic findings as above. ACT 112: Negative or not required by law. The above report was generated using voice recognition software. It may contain grammatical, syntax o r spelling errors. Electronically signed by: Jose Stahl M.D. 03/19/2025 1:21 PM
--- OUTSIDE RECORDS SUMMARY | 2025-03-19 13:57 | External Medical Summary | Summary of Care ---
Author Name Unknown Organization [facility] Address [address] [place] [address] Phone [phone] Care Team Providers Care Controls Designer Name Role Phone Neva Samayoa MD Primary Care Provider [phone] Reason for Visit * Reason Onset Date Comments Test Results 03/09/2025 Encounter Details Date Type Department Care Team (Late st Contact Info) Description 03/09/2025 Telephone Hepatology, [facility] [address] [place] [address] Megha Gonzalez DO [address] [place] [id number] Test Results Allergies Active Allergy Reactions Criticality Noted Date Comments Alendronate 01/02/2014 Stomach upset Clarithromycin 03/10/2011 Stomach pain Codeine 11/17/2012 IBS- stomach issues Other reaction(s): can't breathe Egg-Derived Products Hives 11/21/2007 Patient states she can eat products that contain small amounts of eggs, but not an egg alone. Ensure Nausea/vomiting 11/21/2007 Morphine 04/30/2004 chest pain Other reaction(s): can't breathe documented as of this encounter (statuses as of 03/13/2025) Medications Suvorexant 20 MG Oral Tablet Take 1 Tab by mouth at bedtime. Active busPIRone (BUSPAR) 15 MG Tablet Take 1 Tablet by mouth in the morning and 1 Tablet at noon and 1 Tablet before bedtime. Active LORazepam 1 MG Oral Tablet (Ativan) TAKE 1/2 TABLET BY MOUTH 4 TIMES A DAY NEEDED FOR ANXIETY 05/12/20 22 Active Glucose Blood In Vitro Strip Use to check blood sugars daily while fasting E11.9 300 Strip 11 04/23/20 Active Hyoscyamine Sulfate 0.125 MG Sublingual Tablet Sublingual (Levsin) DISSOLVE ONE TABLET UNDER THE TONGUE 4 TIMES DAILY NEEDED FOR ABDOMINAL PAIN IF UNABLE TO TOLERATE BENTYL. 360 Tablet 3 04/23/20 23 Active Dicyclomine HCl 20 MG Oral Tablet (Bentyl)Indication s:Irritable bowel syndrome with constipation Take 1 Tablet by mouth as needed (abdominal cramping). 270 Tablet 1 04/23/20 23 Active QUEtiapine Fumarate 300 MG Oral Tablet (SEROquel) Take 1 Tablet by mouth at bedtime. 07/23/20 23 Active Acetaminophen ER 650 MG Oral Tablet Extended Release (Tylenol 8 Hour)Indications:H ematoma of groin, subsequent encounter,S/P cardiac cath Take 1 Tablet by mouth every 6 hours. 08/10/20 Active Additional Information Patient taking differently:650 mg [id number] PRN, Pain, Breakthrough, Fever >38C(100.5F), Reported on 03/05/2025 Thyroid 30 MG Oral Tablet (Patriot Thyroid)Indication s:Primary hypothyroidism one pill twice a day 180 Tablet 3 04/11/20 24 Active Additional Information Patient not taking.Reported on 02/27/2025 Losartan Potassium 25 MG Oral Tablet (Cozaar)Indication s:HTN, goal below 130/80 Take 0.5 Tablets by mouth in the morning. 45 Tablet 3 04/21/20 24 Active Vitamin D (Ergocalciferol) 1.25 MG (19590 UT) Oral Capsule (Drisdol)Indicatio ns:Senile osteoporosis Take 1 Capsule by mouth once a week. 12 Capsule 3 09/12/20 24 025 Active Cetirizine HCl 10 MG Oral Tablet (ZyrTEC) Take 1 Tablet by mouth in the morning. 90 Tablet 3 09/30/20 24 Active Additional Information Patient not taking.Reported on 02/27/2025 Aspirin Low Dose 81 MG Oral Tablet Delayed Release (aspirin enteric coated) TAKE 1 TABLET BY MOUTH EVERY DAY IN THE MORNING 90 Tablet 3 10/09/20 24 Active Linzess 290 MCG Oral Capsule (linaCLOtide) TAKE 1 CAPSULE BY MOUTH EVERY MORNING 90 Capsule 3 10/12/20 24 Active Atorvastatin Calcium 80 MG Oral Tablet (Lipitor) TAKE 1 TABLET BY MOUTH EVERY DAY IN THE MORNING 90 Tablet 1 01/04/20 25 Active Hydrocortisone 2.5 % External CreamIndications:A topic dermatitis, unspecified type Apply topically to affected areas on hands twice daily 30 g 01/09/20 25 Active Additional Information Patient not taking.Reported on 03/05/2025 Mounjaro 7.5 MG/0.5ML Subcutaneous Solution Auto-injector (Tirzepatide)Indic ations:Diabetes mellitus without complication (HCC) Inject 7.5 mg under the skin once a week. 2 mL 11 01/27/20 25 026 Active Famotidine 20 MG Oral Tablet (Pepcid) Take 1 Tablet by mouth at bedtime. 30 Tablet 2 02/16/20 25 Active Additional Information Patient not taking.Reported on 02/27/2025 Metoprolol Succinate ER 25 MG Oral Tablet Extended Release 24 Hour (toPROL XL)Indications:His tory of ST elevation myocardial infarction (STEMI) TAKE 1/2 TABLET BY MOUTH IN THE MORNING 45 Tablet 3 03/08/20 25 Active Tetracycline HCl 500 MG Oral CapsuleIndications :H. pylori infection Take 1 Capsule by mouth in the morning and 1 Capsule at noon and 1 Capsule in the evening and 1 Capsule before bedtime. Do all this for 14 days. 56 Capsule 03/09/20 25 025 Active metroNIDAZOLE 500 MG Oral TabletIndications: H. pylori infection Take 1 Tablet by mouth 4 times a day for 14 days. 30 Tablet 03/09/20 25 025 Active Bismuth Subsalicylate 525 MG Oral TabletIndications: H. pylori infection Take 525 mg by mouth 4 times a day for 14 days. 56 Tablet 03/09/20 25 025 Active Omeprazole 40 MG Oral Capsule Delayed Release (PriLOSEC)Indicati ons:H. pylori infection Take 1 Capsule by mouth in the morning and 1 Capsule in the evening. Do all this for 14 days. Every morning.. 28 Capsule 03/09/20 25 025 Active Omeprazole 40 MG Oral Capsule Delayed Release (PriLOSEC)Indicati ons:Gastritis, bile acid reflux TAKE 1 CAPSULE BY MOUTH EVERY MORNING 90 Capsule 2 10/07/20 24 025 Discontin ued(Refil l) documented as of this encounter (statuses as of 03/13/2025) Active Problems Problem Noted Date Diagnosed Date History of ST elevation myocardial infarction (S DANIEL) 04/04/2024 Dyslipidemia, goal LDL below 70 04/04/2024 HTN, goal below 130/80 04/04/2024 Primary hypothyroidism 04/04/2024 Coronary artery disease invo lving [place] coronary artery of [place] heart without angina pectoris 08/13/2023 Diabetes mellitus without complication 3 Adrenal mass 02/11/2022 Positional sleep apnea 01/15/2021 Nocturnal hypoxemia 01/15/2021 Moderate episode of recurrent major depressive d isorder 05/23/2018 Chronic bilateral back pain 05/23/2018 PTSD (post-traumatic stress disorder) 11/04/2017 Insomnia 11/04/2017 Senile osteoporosis 07/29/2017 Controlled substance agreement signed 01/01/2016 Vitamin D insufficiency 11/11/2014 Irritable bowel syndrome 09/24/2003 documented as of this encounter (statuses as of 03/13/2025) Resolved Problems Problem Noted Date Diagnosed Date Resolved Date Encounter for preprocedure s creening laboratory testing for COVID-19 12/12/2020 10/14/20 22 Intractable vomiting with nausea 11/04/2017 10/27/2024 Recurrent major depressive d isorder, in remission 11/04/2017 05/23/2018 H. pylori infection 11/04/2017 10/27/20 24 Closed compression fracture of L2 vertebra 09/29/2017 05/23/2018 Overview (02/22/2019): ICD-10 update of inactive term Benzodiazepine abuse in remission 06/01/2016 10/03/2018 Compression fracture of lumbar vertebra 10/31/2015 09/29/2017 Contusion of rib 10/31/2015 09/16/2018 Back pain 10/31/2015 05/23/2018 Osteoporosis 09/24/2014 07/29/2017 Margaret-menopausal 11/02/2012 01/17/2021 ADVANCE DIRECTIVE INFORMATION 10/06/2009 08/13/2017 Overview (10/06/2009): No, Advance Directive brochure offered , patient declined. Other ventral hernia without mention of obstruction or gangrene 10/29/2003 10/27/2024 documented as of this encounter (statuses as of 03/13/2025) Immunizations Name Administration Dates Next Due COVID-19 mRNA, LNP-s, No Pre serve, 2-Dose Series (Pfizer) 04/18/2021,03/28/2021 COVID-19, LNP-s, No Preserve , Shailesh-sucrose, Ages 12+ (Pfizer) 10/21/2021 Covid-19, Mrna, Lnp-s, Pf, B ivalent, 30 Mcg, IM, 12 yrs and above (Pfizer) 09/10/2022 Pneumococcal Conjugate Vaccine, 20-valent (Prevn ar20) 12/23/2022 Pneumococcal Polysaccharide PPV23 (Pneumovax) TD - Tetanus/Diptheria (ADULT) 11/22/2003 TDAP (age 10 and older)(Boostrix) 09/29/2012 Zoster Vaccine Recombinant (Shingrix) 12/15/2019 documented as of this encounter Social History Tobacco Use Types Packs/Day Years Used Date Smoking Tobacco: Some Days Cigarettes 0.3 36 Smokeless Tobacco: Never Alcohol Use Standard Drinks/Week Comments No 0 (1 standard drink = 0.6 oz pur e alcohol) PHQ-2 Answer Date Recorded PHQ Adult Total Score 2 12/17/2023 Hunger Vital Sign Answer Date Recorded Within the past 12 months, y ou worried that your food would run out before you got the money to buy more. Never true 02/11/20 24 Within the past 12 months, t he food you bought just didn't last and you didn't have money to get more. Never true 02/11/2024 Childcare Answer Date Recorded Do you feel overwhelmed with taking care of a child, family member or friend? Yes 02/11/2024 Does your family need help f inding childcare? (Household - for ages 0-17 years) Not on file 02/11/2024 Clothing Answer Date Recorded Have you been unable to get clothing when it was really needed? No 02/11/2024 Is your family able to get c lothes or diapers when needed? (Household - for ages 0-17 years) Not on file 02/11/2024 Personal Safety Answer Date Recorded Do you feel unsafe or have concerns for your saf ety? No 02/11/2024 Do you have concerns for you r family's safety? (Household - for ages 0-17 years) Not on file 02/11/2024 Utilities Answer Date Recorded Do you have trouble paying y our heating, water, or electric bill? No 02/11/2024 Is your family able to pay t he heat, water, or electric bill? (Household - for ages 0-17 years) Not on file 02/11/2024 Does your family have access to good internet? (Household - for ages 0-17 years) Not on file 02/11/2024 Employment Status Answer Date Recorded Are you unemployed or without regular income? No 02/11/2024 Does the household have a re gular source of income? (Household - for ages 0-17 years) Not on file 02/11/2024 Social Connections Answer Date Recorded How often do you feel lonely or isolated from those around you? Sometimes 02/11/2024 Financial Resource Strain Answer Date R ecorded Do you have any trouble payi ng for your medications, or do you think you might in the future? No 02/11/2024 Does your family have troubl e paying for medicine? (Household - for ages 0-17 years) Not on file 02/11/2024 Transportation Needs Answer Date Record ed READ ONLY Do you have troubl e getting a ride to medical visits or work? Never True 02/11/2024 Does your family have a hard time getting a ride to doctors visits? (Household - for ages 0-17 years) Not on file 02/11/2024 Has lack of transportation k ept you from medical appointments, meetings, work, or from getting things needed for daily living? Check all that apply. (Adult - for ages 18 years and over) Not on file 02/11/2024 Do you (or your family) have trouble finding or paying for a ride (transportation)? (Household - for ages 0-17 years) Not on file 02/11/2024 Housing Stability Answer Date Recorded Do you currently live in a s helter or have no steady place to sleep at night? No 02/11/2024 READ ONLY Do you think you a re at risk of becoming homeless? No 02/11/2024 Does your family worry about paying for your home or becoming homeless? (Household - for ages 0-17 years) Not on file 0 02/11/2024 Are you homeless or worried that you might be in the future? (Adult - for ages 18 years and over) Not on file Are you (or your family) je eless or worried that you might be in the future? (Household - for ages 0-17 years) Not on file Food Insecurity Answer Date Recorded Do you need food for this week? No 02/11/2024 Are you able to get enough f ood for your family? (Household - for ages 0-17 years) Not on file 02/11/2024 Does your family need food t his week? (Household - for ages 0-17 years) Not on file 02/11/2024 Do you always have enough fo od for your family? (Household - for ages 0-17 years) Not on file 02/11/2024 Food Insecurity Answer Date Recorded Within the past 12 months, y ou worried that your food would run out before you got the money to buy more. Never true 02/11/20 24 Within the past 12 months, t he food you bought just didn't last and you didn't have money to get more. Never true 02/11/2024 Do you need food for this week? No 02/11/2024 Comments No Sex and Gender Information Value Date Recorded Sex Assigned at Female 11/29/2019 4:08 PM EST Legal Sex Female 6:03 AM EST Gender Identity Female 11/29/2019 4:08 PM EST Sexual Orientation Choose not to disclose 2019 4:08 PM EST Occupation Industry Job Start Date Job End Date Not on file Not on file Not on file Not on file documented as of this encounter Miscellaneous Notes * Telephone Encounter - Samira Piedra CMA - 03/13/2025 11:30 AM EDT Pt returning to pharmacy to roller picker the Bismuth. * Telephone Encounter - Yaritza Aguirre OSA - 03/13/2025 11:10 AM EDT Patient called states she only received 3 out of 4 medications from pharmacy. Patient states she ismissing medication Bismuth 525mg and would like a call back from nurse. * Addendum Note - Megha Doe CRNP - 03/09/2025 2:39 PM EDTAddended by: MEGHA DOE on: 03/09/2025 02:39 PM Modules accepted: Orders * Telephone Encounter - Megha Doe CRNP - 03/09/2025 2:37 PM EDT Noted, Thanks! * Telephone Encounter - Samira Piedra CMA - 03/09/2025 2:33 PM EDT Pt notified of results note and voiced understanding. * Telephone Encounter - eMgha Gonzalez DO - 03/09/2025 2:23 PM EDT Please let patient know gastric biopsies from recent EGD show an H. Pylori infection. Will need treatment with quadruple therapy. I am prescribing tetracycline 500 mg QID, metronidazole 500 mg QID, bismuth 525 mg BID, and omeprazole 40 mg BID. She will take this therapy for 2 weeks. Then she will stop the omeprazole completely and get a stool test in 6-8 weeks off the PPI to confirm eradication. It is very important that she not drink any alcohol while on this regimen as the alcohol can have aninteraction with the flagyl. Megha Gonzalez DO documented in this encounter Plan of Treatment Upcoming Encounters Date Type Department Care Team (Late st Contact Info) Description 04/12/2025 10:30 AM EDT Nurse Only Rheumatology [facility] [address] [facility] [place] [id number] T[place], Nurse Rheum [facility] [address] [place] [phone] 04/18/2025 8:00 AM EDT Office Visit Cardiology, [facility] [address] [facility] [place] [phone] Enedina Nogueira CRNP [address] [facility] [place] [address] 07/25/2025 11:00 AM EDT Office Visit Gastroenterology, [facility] [address] [facility] [place] [phone] Megha Doe CRNP [address] [facility] [place] [address] Scheduled Orders Name Type Priority Associated Diagnoses Orde r Schedule HELICOBACTER PYLORI ANTIGEN, EIA, STOOL Lab Routine H. pylori infection Expected: 03/09/2025, Expires: 03/09/2026 HELICOBACTER PYLORI ANTIGEN, EIA, STOOL Lab Routine Gastritis, bile acid reflux H. pylori infection Expected: 04/08/2025, Expires: 03/09/2026 Scheduled Procedures Name Priority Associated Diagnoses Date/Ti me COLONOSCOPY FLEXIBLE PROXIMA L DIAGNOSTIC Recall Family history of colon cancer Health Maintenance Due Date Last Done Comments DISCUSS TOBACCO CESSATION (REFER TO SMARTSET #2462) 1963 Depression Monitoring 1975 HIV Screening 1978 HPV/Co-Test 1993 Cologuard 2008 Fecal Occult Blood Test 2008 Sigmoidoscopy 2008 Cervical Cancer Screening 08/03/2019 Pap Smear 08/03/2019 08/03/2016, 07/23, 11/02/2012, Additional history exists Zoster Vaccines (2 of 2) 02/09/2020 12/15/2019 Mammogram 06/02/2022 06/02/2021, 04/23, 08/06/2017, Additional history exists DTap/Tdap Vaccines (2 - Td or Tdap) 09/29/2022 09/29/2012, 11/22/2003 COVID-19 Vaccine ( season) 2024 09/10/2022, 10/21/2021, 04/18/2021, Additional history exists Diabetic Eye Exam 04/04/2025 04/04/2024 Diabetic Foot Exam 04/04/2025 04/04/2024 HbA1c 06/20/2025 12/21/2024, 07/24, 04/04/2024, Additional history exists Albumin/Creatinine Ratio 08/11/2025 08/11/2024, 03/24 GFR 01/26/2026 01/26/2025, 07/24, 04/21/2024, Additional history exists Colonoscopy 06/19/2026 06/19/2021, 05/23, 06/10/2016, Additional history exists Colorectal Cancer Screening 06/19/2026 DXA Scan 2026 2024, 07/23, 06/03/2020, Additional history exists RETIRED - COLONOSCOPY-EVERY 5 YRS AGES 18-100 Discontinued 06/19/2021, 06/19/2021, 06/10/2016, Additional history exists Pneumococcal Vaccine: 50+ Years Completed 12/23/2022, 03/19/2009 VITAMIN D LEVEL ONCE IN A LIFETIME-USE SMARTSET# 27117 Completed 01/26/2025, 08/11/2024, 04/04/2024, Additional history exists HPV (Gardasil) Vaccine Aged Out No lo nger eligible based on patient's age to complete this topic Hepatitis B Vaccine Aged Out No longe r eligible based on patient's age to complete this topic MENINGOCOCCAL (MENACTRA/MENVEO) Aged Out No longer eligible based on patient's age to complete this topic Meningitis B Vaccine (Bexsero/Trumemba) Aged Out No longer eligible based on patient's age to complete this topic documented as of this encounter Medical Devices Not on filedocumented as of this encounter Visit Diagnoses Diagnosis H. pylori infection- Primary Helicobacter pylori (H. pylori) Gastritis, bile acid reflux Other specified gastritis without mention of hemorrhage documented in this encounter Care Teams Controls Designer Relationship Specialty Start Date End Date Neva Samayoa MD [address] [facility] [place] [address] PCP - General Family Medicine 11/30/24 documented as of this encounter
--- OUTSIDE RECORDS SUMMARY | 2025-03-19 13:57 | External Medical Summary | Summary of Care ---
Author Name Unknown Organization [facility] Address [address] [place] [address] Phone [phone] Care Team Providers Care Senior Clinical Research Scientist Name Role Phone Neva Samayoa MD Primary Care Provider [phone] Reason for Visit * Reason Onset Date Comments Test Results 03/09/2025 Encounter Details Date Type Department Care Team (Late st Contact Info) Description 03/09/2025 Telephone Hepatology, [facility] [address] [place] [address] Megha Gonzalez DO [address] [place] [address] Test Results Allergies Active Allergy Reactions Criticality [...] Active Additional Information Patient taking differently:650 mg [id number] PRN, Pain, Breakthrough, Fever >38C(100.5F), Reported on 03/05/2025 Thyroid 30 MG Oral Tablet ([place] Thyroid)Indication s:Primary hypothyroidism one pill twice a day 180 Tablet 3 04/11/20 24 Active Additional Information Patient not taking.Reported on 02/27/2025 Losartan Potassium 25 MG Oral Tablet (Cozaar)Indication s:HTN, goal below 130/80 Take 0.5 Tablets by mouth in the morning. 45 Tablet 3 04/21/20 24 Active Vitamin D (Ergocalciferol) 1.25 MG (65559 UT) Oral Capsule (Drisdol)Indicatio ns:Senile osteoporosis Take [...] hypothyroidism 04/04/2024 Coronary artery disease invo lving [place] coronary artery of [place] heart without angina pectoris 08/13/2023 Diabetes mellitus [...] AM EDT Pt returning to pharmacy to cook pickled meat the [place]. * Telephone Encounter - Yaritza [...] and voiced understanding. * Telephone Encounter - Megha Gonzalez DO - 03/09/2025 2:23 PM EDT [...] 04/12/2025 10:30 AM EDT Nurse Only Rheumatology [facility] [address] [facility] [place] [phone] Taz, Nurse Rheum [facility] [address] [place] [address] 04/18/2025 8:00 AM EDT Office Visit Cardiology, [facility] [address] [facility] [place] [phone] Enedina Nogueira CRNP [address] [facility] [place] [address] 07/25/2025 11:00 AM EDT Office Visit Gastroenterology, [facility] [address] [facility] [place] [phone] Megha Doe CRNP [address] [facility] [place] [address] Scheduled Orders Name Type Priority Associated Diagnoses [...] Comments DISCUSS TOBACCO CESSATION (REFER TO SMARTSET #9162) 1963 Depression Monitoring 1975 HIV Screening 1978 [...] D LEVEL ONCE IN A LIFETIME-USE SMARTSET# [id number] Completed 01/26/2025, 08/11/2024, 04/04/2024, Additional history exists [...] hemorrhage documented in this encounter Care Teams Senior Clinical Research Scientist Relationship Specialty Start Date End Date Neva Samayoa MD [address] [facility] [place] [address] PCP - General Family Medicine 11/30/24 documented as of this encounter
--- OUTSIDE RECORDS SUMMARY | 2025-03-19 13:57 | External Medical Summary | Summary of Care ---
Author Name Unknown Organization [facility] Address [address] [place] [address] Phone [phone] Care Team Providers Care International Trade Teacher Name Role Phone Neva Samayoa MD Primary Care Provider [phone] Reason for Visit * Reason Onset Date Comments Pharmacy Questions 03/09/2025 Encounter Details Date Type Department Care Team (Late st Contact Info) Description 03/09/2025 [facility] [address] [place] [phone] Connie Gonzalez DO [address] [place] [address] Pharmacy Questions Allergies Active Allergy Reactions Criticality Noted Date [...] as of this encounter (statuses as of 03/09/2025) Medications Suvorexant 20 MG Oral Tablet Take [...] Tablet by mouth every 6 hours. 08/10/20 23 Active Additional Information Patient taking differently:650 mg [id number] PRN, Pain, Breakthrough, Fever >38C(100.5F), Reported on 03/05/2025 Thyroid 30 MG Oral Tablet ([place] Thyroid)Indication s:Primary hypothyroidism one pill twice a day 180 Tablet 3 04/11/20 24 Active Additional Information Patient not taking.Reported on 02/27/2025 Losartan Potassium 25 MG Oral Tablet (Cozaar)Indication s:HTN, goal below 130/80 Take 0.5 Tablets by mouth in the morning. 45 Tablet 3 04/21/20 24 Active Vitamin D (Ergocalciferol) 1.25 MG (69593 UT) Oral Capsule (Drisdol)Indicatio ns:Senile osteoporosis Take [...] morning.. 28 Capsule 03/09/20 25 025 Active documented as of this encounter (statuses as of 03/09/2025) Active Problems Problem Noted Date Diagnosed Date History of ST elevation myocardial infarction (S DANIEL) 04/04/2024 Dyslipidemia, goal LDL below 70 04/04/2024 HTN, goal below 130/80 04/04/2024 Primary hypothyroidism 04/04/2024 Coronary artery disease invo lving [place] coronary artery of [place] heart without angina pectoris 08/13/2023 Diabetes mellitus [...] as of this encounter (statuses as of 03/09/2025) Resolved Problems Problem Noted Date Diagnosed Date [...] as of this encounter (statuses as of 03/09/2025) Immunizations Name Administration Dates Next Due COVID-19 [...] 18 years and over) Not on file 4 Are you (or your family) je eless [...] encounter Miscellaneous Notes * Telephone Encounter - Kimberly Christie LPN - 03/09/2025 3:22 PM EDT Call placed to pharmacy to adjust count to 56 tabs * Telephone Encounter - Mary Owusu PHARM Tech - 03/09/2025 3:06 PM EDT Pt is calling sts Pharmacy sts pt's prescription for metroNIDAZOLE 500 MG Oral Tablet was sent withunclear directions stating "Sig - Route: Take 1 Tablet by mouth 4 times a day for 14 days. - Oral ". Please clarify the directions for this medication and send a new prescription to [facility] pharmacy. If pt is to take 4xdaily for 14 days would need prescription for 56 pills Thank you, Mary Owusu Alumina Refinery Operator [facility] 03/09/2025,3:07 PM documented in this encounter Plan of Treatment Upcoming Encounters Date Type Department Care Team (Late st Contact Info) Description 04/12/2025 10:30 AM EDT Nurse Only Rheumatology [facility] [address] [place] [phone] Taz Nurse [place]ina [address] [address] 04/18/2025 8:00 AM EDT Office Visit Cardiology, [facility] [address] [place] [phone] Enedina Nogueira CRNP [address] [facility] [place] [phone] 07/25/2025 11:00 AM EDT Office Visit Gastroenterology, [facility] [address] [place] [phone] Connie Stephens CRNP [address] [place] [address] Scheduled Procedures Name Priority Associated Diagnoses Date/Ti me COLONOSCOPY FLEXIBLE PROXIMA L DIAGNOSTIC Recall Family history of colon cancer Health Maintenance Due Date Last Done Comments DISCUSS TOBACCO CESSATION (REFER TO SMARTSET #3138) 1963 Depression Monitoring 1975 HIV Screening 1978 [...] D LEVEL ONCE IN A LIFETIME-USE SMARTSET# [id number] Completed 01/26/2025, 08/11/2024, 04/04/2024, Additional history exists [...] Not on filedocumented as of this encounter Care Teams International Trade Teacher Relationship Specialty Start Date End Date Neva Samayoa MD [address] [place] [address] PCP - General Family Medicine 11/30/24 documented as of this encounter
--- OUTSIDE RECORDS SUMMARY | 2025-03-19 13:58 | External Medical Summary | Summary of Care ---
Author Name Unknown Organization [facility] Address [address] [place] [address] Phone [phone] Care Team Providers Care Power Equipment Technology Instructor Name Role Phone Neva Samayoa MD Primary Care Provider [phone] Reason for Visit * Reason Comments Outpatient Testing Encounter Details Date Type Department Care Team (Latest Contact Info) Description 02/15/2025 11:50 AM EDT Laboratory Laboratory, [facility] [address] [place] [address] [facility] [address] [place] [address] Gastroesophageal reflux disease, unspecified whether esophagitis present; Irritable bowel syndrome with constipation Allergies Active Allergy Reactions Criticality Noted Date [...] as of this encounter (statuses as of 02/15/2025) Medications Suvorexant 20 MG Oral Tablet Take 1 Tab by mouth at bedtime. Active busPIRone (BUSPAR) 15 MG Tablet Take 1 Tablet by mouth in the morning and 1 Tablet at noon and 1 Tablet before bedtime. Active LORazepam 1 MG Oral Tablet (Ativan) TAKE 1/2 TABLET BY MOUTH 4 TIMES A DAY NEEDED FOR ANXIETY 05/12/20 Active Glucose Blood In Vitro Strip Use [...] 1 Tablet by mouth at bedtime. 07/23/20 Active Acetaminophen ER 650 MG Oral Tablet Extended Release (Tylenol 8 Hour)Indications:H ematoma of groin, subsequent encounter,S/P cardiac cath Take 1 Tablet by mouth every 6 hours. 08/10/20 Active Additional Information Patient taking differently:650 mg [id number] PRN, Pain, Breakthrough, Fever >38C(100.5F), Reported on 02/13/2025 Metoprolol Succinate ER 25 MG Oral Tablet Extended Release 24 Hour (toPROL XL)Indications:His tory of ST elevation myocardial infarction (STEMI) Take 0.5 Tablets by mouth in the morning. 45 Tablet 3 01/06/20 24 Active Thyroid 30 MG Oral Tablet ([place] Thyroid)Indication s:Primary hypothyroidism one pill twice a day 180 Tablet 3 04/11/20 24 Active Losartan Potassium 25 MG Oral Tablet (Cozaar)Indication s:HTN, goal below 130/80 Take 0.5 Tablets by mouth in the morning. 45 Tablet 3 04/21/20 24 Active Vitamin D (Ergocalciferol) 1.25 MG (81319 UT) Oral Capsule (Drisdol)Indicatio ns:Senile osteoporosis Take 1 Capsule by mouth once a week. 12 Capsule 3 09/12/20 24 025 Active Cetirizine HCl 10 MG Oral Tablet (ZyrTEC) Take 1 Tablet by mouth in the morning. 90 Tablet 3 09/30/20 24 Active Omeprazole 40 MG Oral Capsule Delayed Release (PriLOSEC)Indicati ons:Gastritis, bile acid reflux TAKE 1 CAPSULE BY MOUTH EVERY MORNING 90 Capsule 2 10/07/20 24 Active Aspirin Low Dose 81 MG Oral Tablet [...] twice daily 30 g 01/09/20 25 Active Mounjaro 7.5 MG/0.5ML Subcutaneous Solution Auto-injector (Tirzepatide)Indic ations:Diabetes mellitus without complication (HCC) Inject 7.5 mg under the skin once a week. 2 mL 11 01/27/20 25 026 Active Famotidine 20 MG Oral Tablet (Pepcid) Take 1 Tablet by mouth at bedtime. 30 Tablet 2 02/16/20 25 Active documented as of this encounter (statuses as of 02/15/2025) Active Problems Problem Noted Date Diagnosed Date History of ST elevation myocardial infarction (S DANIEL) 04/04/2024 Dyslipidemia, goal LDL below 70 04/04/2024 HTN, goal below 130/80 04/04/2024 Primary hypothyroidism 04/04/2024 Coronary artery disease invo lving [place] coronary artery of [place] heart without angina pectoris 08/13/2023 Diabetes mellitus [...] as of this encounter (statuses as of 02/15/2025) Resolved Problems Problem Noted Date Diagnosed Date [...] as of this encounter (statuses as of 02/15/2025) Immunizations Name Administration Dates Next Due COVID-19 mRNA, LNP-s, No Pre serve, 2-Dose Series ([employer]) 04/18/2021,03/28/2021 COVID-19, LNP-s, No Preserve , Shailesh-sucrose, Ages 12+ (Pfizer) 10/21/2021 Covid-19, Mrna, Lnp-s, Pf, B ivalent, 30 Mcg, IM, 12 yrs and above ([employer]) 09/10/2022 Pneumococcal Conjugate Vaccine, 20-valent (Prevn ar20) [...] as of this encounter Miscellaneous Notes * Result Encounter Note - Connie Stephens CRNP - 02/15/2025 1:04 PM EDT Mild elevation in WBCs similar to 2 weeks ago. Patient not exhibiting any symptoms suggestive of infection. Would recommend follow-up with PCP. documented in this encounter Plan of Treatment Upcoming Encounters Date Type Department Care Team (Latest Contact Info) Description 02/22/2025 7:45 AM EDT Imaging Radiology [facility] [address] [place] [phone] 03/05/2025 11:45 AM EDT Hospital Encounter ENDO [facility], Endoscopy Room [facility] [address] [place] [phone] Connie Gonzalez DO [address] [place] [address] 03/05/2025 11:45 AM EDT - 03/05/2025 12:15 PM EDT Surgery ENDO [facility], Endoscopy Room [facility] [address] [place] [phone] Connie Gonzalez DO [address] [place] [address] ESOPHAGOGASTRODUODENOSCOPY (EGD), FLEXIBLE, TRANSORAL, DIAGNOSTIC 04/12/2025 10:30 AM EDT Nurse Only Rheumatology [facility] [address] [place] [phone] Taz, Nurse Rheum Misael [address] [facility] [place] [address] 04/18/2025 8:00 AM EDT [facility] [address] [place] [phone] Enedina Nogueira CRNP [address] [facility] [place] [address] 07/25/2025 11:00 AM EDT [facility] [address] [place] [phone] Connie Stephens CRNP [address] [place] [address] Pending Results Name Type Priority Associated Diagnoses Date /Time MAGNESIUM Lab Routine Gastroesophageal reflux disease, unspecified whether esophagitis present Irritable bowel syndrome with constipation 02/15/2025 11:43 AM EDT VITAMIN B12 Lab Routine Gastroesophageal reflux disease, unspecified whether esophagitis present Irritable bowel syndrome with constipation 02/15/2025 11:43 AM EDT Scheduled Procedures Name Priority Associated Diagnoses Date/Ti ct ESOPHAGOGASTRODUODENOSCOPY ( EGD), FLEXIBLE, TRANSORAL, DIAGNOSTIC Gastroesophageal reflux disease, unspecified whether esophagitis present Irritable bowel syndrome with constipation 03/05/2025 11:45 AM EDT COLONOSCOPY FLEXIBLE PROXIMA L DIAGNOSTIC Recall Family history of colon cancer Health Maintenance Due Date Last Done Comments DISCUSS TOBACCO CESSATION (REFER TO SMARTSET #9855) 1965 HIV Screening 1978 HPV/Co-Test 1993 Cologuard 2008 Fecal Occult Blood Test 2008 Sigmoidoscopy 2008 Cervical Cancer Screening 08/03/2019 Pap Smear 08/03/2019 08/03/2016, 07/23, 11/02/2012, Additional history exists Zoster Vaccines (2 of 2) 02/09/2020 12/15/2019 Mammogram 06/02/2022 06/02/2021, 04/23, 08/06/2017, Additional history exists DTap/Tdap Vaccines (2 - Td or Tdap) 09/29/2022 09/29/2012, 11/22/2003 COVID-19 Vaccine ( season) 2024 09/10/2022, 10/21/2021, 04/18/2021, Additional history exists Depression Monitoring 12/17/2024 12/17/2023 Diabetic Eye Exam 04/04/2025 04/04/2024 Diabetic Foot [...] D LEVEL ONCE IN A LIFETIME-USE SMARTSET# [id number] Completed 01/26/2025, 08/11/2024, 04/04/2024, Additional history exists [...] Not on filedocumented as of this encounter Procedures Procedure Name Priority Date/Time Associated Diagnosis Comments DIFFERENTIAL, AUTOMATED Routine 02/15/2025 11:43 AM EDT Gastroesophageal reflux disease, unspecified whether esophagitis present Irritable bowel syndrome with constipation CBC Routine 02/15/2025 11:43 AM EDT Gastroesophageal reflux disease, unspecified whether esophagitis present Irritable bowel syndrome with constipation CBC Routine 02/15/2025 11:43 AM EDT Gastroesophageal reflux disease, unspecified whether esophagitis present Irritable bowel syndrome with constipation documented in this encounter Results * (ABNORMAL) DIFFERENTIAL, AUTOMATED (02/15/2025 11:43 AM EDT) WBC 13.27(H) 4.00 - 10.80 K/uL 02/15/2025 12:03 PM EDT [facility] Neutrophils % 49.8 40.0 - 75.0 % 02/15/2025 12:03 PM EDT [facility] [place] [facility] Lymphocytes % 41.6 18.0 - 42.0 % 02/15/2025 12:03 PM EDT [facility] [place] [facility] Monocytes % 6.2 1.0 - 11.0 % 02/15/2025 12:03 PM EDT [facility] [place] [facility] Eosinophils % 2.2 0.0 - 6.0 % 02/15/2025 12:03 PM EDT [facility] [place] [facility] Basophils % 0.2 0.0 - 2.0 % 02/15/2025 12:03 PM EDT [facility] [place] [facility] Absolute Neutrophils 6.62 1.80 - 7.70 K/uL 02/15/2025 12:03 PM EDT [facility] [place] [facility] Absolute Lymphocytes 5.52(H) 1.00 - 4.80 K/ul 02/15/2025 12:03 PM EDT [facility] [place] [facility] Absolute Monocytes 0.82 0.00 - 1.10 K/uL 02/15/2025 12:03 PM EDT [facility] Absolute Eosinophils 0.29 0.00 - 0.70 K/uL 02/15/2025 12:03 PM EDT [facility] [place] [facility]10 Absolute Basophils 0.02 0.00 - 0.20 K/uL 02/15/2025 12:03 PM EDT [facility] [place] [facility] Blood Venous blood specimen / Unknown Venipuncture / Unknown 02/15/2025 11:43 AM EDT 02/15/2025 11:43 AM EDT Connie RODRIGUEZ LAB BLOOD ORDERABLES Fi nal Result [facility] [place] [facility]10 [address] [place] [address] * (ABNORMAL) CBC (02/15/2025 11:43 AM EDT) WBC 13.27(H) 4.00 - 10.80 K/uL 02/15/2025 12:03 PM EDT [facility] [place] [facility]10 RBC 5.40 3.85 - 5.15 M/uL 02/15/2025 12:03 PM EDT [facility] [place] [facility]10 HGB 15.3 12.0 - 15.3 g/dL 02/15/2025 12:03 PM EDT [facility] [place] [facility]10 HCT 46.3(H) 36.0 - 45.2 % 02/15/2025 12:03 PM EDT [facility] [place] [facility]10 MCV 85.7 81.5 - 97.5 fL 02/15/2025 12:03 PM EDT [facility] [place] [facility] MCH 28.3 27.0 - 34.0 pg 02/15/2025 12:03 PM EDT [facility] [place] [facility]10 MCHC 33.0 32.0 - 36.0 g/dL 02/15/2025 12:03 PM EDT [facility] [place] [facility]10 RDW 14.9 11.5 - 15.5 % 02/15/2025 12:03 PM EDT [facility] [place] [facility]10 PLT 336 140 - 400 K/uL 02/15/2025 12:03 PM EDT [facility] [place] [facility] MPV 9.4 6.6 - 11.1 fL 02/15/2025 12:03 PM EDT [facility] [place] [facility] Blood Venous blood specimen / Unknown Venipuncture / Unknown 02/15/2025 11:43 AM EDT 02/15/2025 11:43 AM EDT Connie Stephens AIRCRAFT PAINTER LAB BLOOD ORDERABLES Fi nal Result [facility] [place] [address] documented in this encounter Visit Diagnoses Diagnosis Gastroesophageal reflux disease, unspecified whether esophagitis present Irritable bowel syndrome with constipation Irritable bowel syndrome Gastroesophageal reflux disease, unspecified whether esophagitis present Irritable bowel syndrome with constipation Irritable bowel syndrome documented in this encounter Care Teams Power Equipment Technology Instructor Relationship Specialty Start Date End Date Neva Samayoa MD [address] [facility] [place] [address] PCP - General Family Medicine 11/30/24 documented as of this encounter
--- OUTSIDE RECORDS SUMMARY | 2025-03-19 13:58 | External Medical Summary | Summary of Care ---
Author Name Unknown Organization [facility] Address [address] [place] [address] Phone [phone] Care Team Providers Care Electrical Instrument Maker Name Role Phone Neva Samayoa MD Primary Care Provider [phone] Reason for Visit * Reason Onset Date Comments Test Results 03/09/2025 Encounter Details Date Type Department Care Team (Late st Contact Info) Description 03/09/2025 Telephone Hepatology, [facility] [address] [facility] [place] [address] Megha Gonzalez DO [address] [place] [address] Test Results Allergies Active Allergy Reactions Criticality [...] Active Additional Information Patient taking differently:650 mg [id number] PRN, Pain, Breakthrough, Fever >38C(100.5F), Reported on 03/05/2025 Thyroid 30 MG Oral Tablet ([place] Thyroid)Indication s:Primary hypothyroidism one pill twice a day 180 Tablet 3 04/11/20 24 Active Additional Information Patient not taking.Reported on 02/27/2025 Losartan Potassium 25 MG Oral Tablet (Cozaar)Indication s:HTN, goal below 130/80 Take 0.5 Tablets by mouth in the morning. 45 Tablet 3 04/21/20 24 Active Vitamin D (Ergocalciferol) 1.25 MG (59071 UT) Oral Capsule (Drisdol)Indicatio ns:Senile osteoporosis Take [...] hypothyroidism 04/04/2024 Coronary artery disease invo lving [place] coronary artery of [place] heart without angina pectoris 08/13/2023 Diabetes mellitus [...] as of this encounter Miscellaneous Notes * Addendum Note - Megha Doe CRNP [...] 04/12/2025 10:30 AM EDT [facility] [address] [place] [phone] Taz Nurse Andreina Douglas [address] [place] [address] [place] [address] 04/18/2025 8:00 AM EDT [facility] [address] [place] [phone] Enedina Nogueira CRNP [address] [place] [phone] 07/25/2025 11:00 AM EDT Office Visit Gastroenterology, [facility] [address] [place] [phone] Megha Doe CRNP [address] [place] [address] Scheduled Orders Name Type Priority Associated Diagnoses [...] Comments DISCUSS TOBACCO CESSATION (REFER TO SMARTSET #2703) 1965 Depression Monitoring 1975 HIV Screening 1978 [...] D LEVEL ONCE IN A LIFETIME-USE SMARTSET# [id number] Completed 01/26/2025, 08/11/2024, 04/04/2024, Additional history exists [...] hemorrhage documented in this encounter Care Teams Electrical Instrument Maker Relationship Specialty Start Date End Date Neva Samayoa MD [address] [place] [address] PCP - General Family Medicine 11/30/24 documented as of this encounter
--- OUTSIDE RECORDS SUMMARY | 2025-03-19 13:58 | External Medical Summary | Summary of Care ---
Author Name Unknown Organization [facility] Address [address] [place] [address] Phone [phone] Care Team Providers Care Residential Treatment Counselor Name Role Phone Neva Samayoa MD Primary Care Provider [phone] Reason for Visit * Reason Onset Date Comments Test Results 03/09/2025 Encounter Details Date Type Department Care Team (Late st Contact Info) Description 03/09/2025 Telephone Hepatology, [facility] [address] [facility] [place] [address] Megha Gonzalez DO [address] [place] [address] Test Results Allergies Active Allergy Reactions Criticality [...] Active Additional Information Patient taking differently:650 mg [id number] PRN, Pain, Breakthrough, Fever >38C(100.5F), Reported on 03/05/2025 Thyroid 30 MG Oral Tablet ([place] Thyroid)Indication s:Primary hypothyroidism one pill twice a day 180 Tablet 3 04/11/20 24 Active Additional Information Patient not taking.Reported on 02/27/2025 Losartan Potassium 25 MG Oral Tablet (Cozaar)Indication s:HTN, goal below 130/80 Take 0.5 Tablets by mouth in the morning. 45 Tablet 3 04/21/20 24 Active Vitamin D (Ergocalciferol) 1.25 MG (26098 UT) Oral Capsule (Drisdol)Indicatio ns:Senile osteoporosis Take [...] hypothyroidism 04/04/2024 Coronary artery disease invo lving [place] coronary artery of [place] heart without angina pectoris 08/13/2023 Diabetes mellitus [...] 04/12/2025 10:30 AM EDT [facility] [address] [place] [phone] Taz Nurse Andreina Douglas [address] [place] [address] [place] [address] 04/18/2025 8:00 AM EDT [facility] [address] [place] [phone] Enedina Nogueira CRNP [address] [place] [id number] 07/25/2025 11:00 AM EDT Office Visit Gastroenterology, [facility] [address] [place] [phone] Megha Doe CRNP [address] [place] [address] Scheduled Orders Name Type Priority Associated Diagnoses [...] Comments DISCUSS TOBACCO CESSATION (REFER TO SMARTSET #2000) 1965 Depression Monitoring 1975 HIV Screening 1978 [...] D LEVEL ONCE IN A LIFETIME-USE SMARTSET# [id number] Completed 01/26/2025, 08/11/2024, 04/04/2024, Additional history exists [...] hemorrhage documented in this encounter Care Teams Residential Treatment Counselor Relationship Specialty Start Date End Date Neva Samayoa MD [address] [place] [address] PCP - General Family Medicine 11/30/24 documented as of this encounter
--- OUTSIDE RECORDS SUMMARY | 2025-03-19 13:58 | External Medical Summary | Summary of Care ---
Author Name Unknown Organization [facility] Address [address] [place] [address] Phone [phone] Care Team Providers Care Power Supply Engineer Name Role Phone Neva Samayoa MD Primary Care Provider [phone] Reason for Visit * Reason Onset Date Comments Pharmacy Questions 03/09/2025 Encounter Details Date Type Department Care Team (Late st Contact Info) Description 03/09/2025 [facility]phone [facility] [address] [place] [phone] Connie oGnzalez DO [address] [place] [address] Pharmacy Questions Allergies Active Allergy Reactions Criticality [...] Active Additional Information Patient taking differently:650 mg [id number] PRN, Pain, Breakthrough, Fever >38C(100.5F), Reported on 03/05/2025 Thyroid 30 MG Oral Tablet ([place] Thyroid)Indication s:Primary hypothyroidism one pill twice a day 180 Tablet 3 04/11/20 24 Active Additional Information Patient not taking.Reported on 02/27/2025 Losartan Potassium 25 MG Oral Tablet (Cozaar)Indication s:HTN, goal below 130/80 Take 0.5 Tablets by mouth in the morning. 45 Tablet 3 04/21/20 24 Active Vitamin D (Ergocalciferol) 1.25 MG (97869 UT) Oral Capsule (Drisdol)Indicatio ns:Senile osteoporosis Take [...] hypothyroidism 04/04/2024 Coronary artery disease invo lving citizen [place] coronary artery of citizen [place] heart without angina pectoris 08/13/2023 Diabetes mellitus [...] medication and send a new prescription to [facility] pharmacy. If pt is to take 4xdaily for 14 days would need prescription for 56 pills Thank you, Mary Owusu Checkroom Chief [facility] 03/09/2025,3:07 PM documented in this encounter Plan of Treatment Upcoming Encounters Date Type Department Care Team (Late st Contact Info) Description 04/12/2025 10:30 AM EDT Nurse Only Rheumatology [facility] [address] [place] [phone] Taz Nurse [address]ina [address] [address] 04/18/2025 8:00 AM EDT Office Visit Cardiology, [facility] [address] [place] [phone] Enedina Nogueira CRNP [address] [facility] [place] [id number] 07/25/2025 11:00 AM EDT Office Visit Gastroenterology, [facility] [address] [place] [phone] Connie Stephens CRNP [address] [place] [address] Scheduled Procedures Name Priority Associated Diagnoses Date/Ti me COLONOSCOPY FLEXIBLE PROXIMA L DIAGNOSTIC Recall Family history of colon cancer Health Maintenance Due Date Last Done Comments DISCUSS TOBACCO CESSATION (REFER TO SMARTSET #7161) 1963 Depression Monitoring 1975 HIV Screening 1978 [...] D LEVEL ONCE IN A LIFETIME-USE SMARTSET# 63784 Completed 01/26/2025, 08/11/2024, 04/04/2024, Additional history exists [...] filedocumented as of this encounter Care Teams Power Supply Engineer Relationship Specialty Start Date End Date Neva Samayoa MD [address] [place] [address] PCP - General Family Medicine 11/30/24 documented as of this encounter
--- OUTSIDE RECORDS SUMMARY | 2025-03-19 13:58 | External Medical Summary | Summary of Care ---
Author Name Unknown Organization [facility] Address [address] [place] [address] Phone [phone] Care Team Providers Care Supervisor [employer] Name Role Phone Neva Samayoa MD Primary Care Provider [phone] Reason for Visit * Auth/Cert Specialty Diagnoses / Procedures Referred By Conttommie t Referred To Contact Diagnoses Gastroesophageal reflux disease, unspecified whether esophagitis present Irritable bowel syndrome with constipation Gastroesophageal reflux disease, unspecified whether esophagitis present [K21.9] Irritable bowel syndrome with constipation [K58.1] Procedures EGD, FLEXIBLE, DIAGNOSTIC ESOPHAGOGASTRODUODENOSCOPY (EGD), FLEXIBLE, TRANSORAL, DIAGNOSTIC Connie Gonzalez DO [address] [place] [address] Phone: tel: fax: ENDO [facility], Endoscopy Room [facility] [address] [place] [address] Phone: tel: Referral ID Status Reason Start Date Expiration Date Visits Re quested Visits Authorized [id number] Encounter Details Date Type Department Care Team (Latest Contact Info) Description 03/05/2025 10:50 AM EDT - 03/05/2025 1:14 PM EDT Hospital Encounter [facility]O [facility], Endoscopy Room [facility] [address] [place] [address] Connie Gonzalez DO [address] [place] [address] Upper GI Endoscopy Discharge Disposition: Home - Self Care Allergies Active Allergy Reactions Criticality Noted Date [...] as of this encounter (statuses as of 03/06/2025) Medications Suvorexant 20 MG Oral Tablet Take [...] while fasting E11.9 300 Strip 11 04/23/20 23 Active Hyoscyamine Sulfate 0.125 MG Sublingual Tablet [...] Active Additional Information Patient taking differently:650 mg [id number] PRN, Pain, Breakthrough, Fever >38C(100.5F), Reported on 03/05/2025 Metoprolol Succinate ER 25 MG Oral Tablet Extended Release 24 Hour (toPROL XL)Indications:His tory of ST elevation myocardial infarction (STEMI) Take 0.5 Tablets by mouth in the morning. 45 Tablet 3 01/06/20 24 Active Thyroid 30 MG Oral Tablet ([place] Thyroid)Indication s:Primary hypothyroidism one pill twice a day 180 Tablet 3 04/11/20 24 Active Additional Information Patient not taking.Reported on 02/27/2025 Losartan Potassium 25 MG Oral Tablet (Cozaar)Indication s:HTN, goal below 130/80 Take 0.5 Tablets by mouth in the morning. 45 Tablet 3 04/21/20 24 Active Vitamin D (Ergocalciferol) 1.25 MG (45657 UT) Oral Capsule (Drisdol)Indicatio ns:Senile osteoporosis Take 1 Capsule by mouth once a week. 12 Capsule 3 09/12/20 24 025 Active Cetirizine HCl 10 MG Oral Tablet (ZyrTEC) Take 1 Tablet by mouth in the morning. 90 Tablet 3 09/30/20 24 Active Additional Information Patient not taking.Reported on 02/27/2025 Omeprazole 40 MG Oral Capsule Delayed Release [...] Additional Information Patient not taking.Reported on 02/27/2025 documented as of this encounter (statuses as of 03/06/2025) Active Problems Problem Noted Date Diagnosed Date History of ST elevation myocardial infarction (S DANIEL) 04/04/2024 Dyslipidemia, goal LDL below 70 04/04/2024 HTN, goal below 130/80 04/04/2024 Primary hypothyroidism 04/04/2024 Coronary artery disease invo lving [place] coronary artery of [place] heart without angina pectoris 08/13/2023 Diabetes mellitus [...] as of this encounter (statuses as of 03/06/2025) Resolved Problems Problem Noted Date Diagnosed Date [...] as of this encounter (statuses as of 03/06/2025) Immunizations Name Administration Dates Next Due COVID-19 [...] on file documented as of this encounter Last Filed Vital Signs Vital Sign Reading Time Taken Comments Blood Pressure 122/70 03/05/2025 12:50 PM EDT Pulse 80 03/05/2025 12:50 PM EDT Temperature 36 °C (96.8 °F) 03/05/2025 12:50 PM EDT Respiratory Rate 16 03/05/2025 12:50 PM EDT Oxygen Saturation 100% 03/05/2025 12:50 PM EDT Inhaled Oxygen Concentration - - Weight 61.7 kg (136 lb) 03/05/2025 11:23 AM EDT Height 148.6 cm (4' 10.5") 03/05/2025 11:23 AM E DT Body Mass Index 27.94 03/05/2025 11:23 AM EDT documented in this encounter H&P Notes * Connie Gonzalez, DO - 03/05/2025 12:11 PM EDT Endoscopy Pre-Procedure Assessment Name: Greg Phillip Date: 03/05/2025 Time: 12:11 PM Procedure: Upper GI Endoscopy; with Indication(s) of upper abdominal symptoms that persist despite an appropriate trial of therapy Endoscopy Pre-Procedure Assessment: Prior to the procedure, the patient was identified. The patient's history, medications and allergies were reviewed as per the Anesthesia Assessment. The patient is competent. The risks and benefits of the proposed procedure and the planned sedation were discussed with the patient. All questions were answered and informed consent for the procedure was obtained. This patient has undergone a preprocedural evaluation. A determination has been made to proceed with the planned procedure under [facility] procedural guidelines and the [facility] Non-Emergent, Elective Medical Services and Treatment Recommendations (published on 02-27-20). The community and hospital prevalence of COVID-19 has been discussed as well as this patient's specific risks associated with SARS-CoV-19 infection. Based upon the clinical acuity and patient-specific care considerations, this procedure is deemed a Tier II - Intermediate acuity treatment or service with either progression or the threat of progressive disease related to the delay in treatment. Not providing the service has the potential for increasing morbidity or mortality. BP 101/72 | Pulse 93 | Temp 36.1 °C (97 °F) (Tympanic) | Resp 17 | Ht 1.486 m (4' 10.5") | Wt 61.7 kg (136 lb) | LMP 11/02/2013 | SpO2 100% | BMI 27.94 kg/m² | BSA 1.6 m² Prior to Admission medications Medication Sig Last Dose Discont. Mounjaro 7.5 MG/0.5ML Subcutaneous Solution Auto-injector (Tirzepatide) Inject 7.5 mg under the skin once a week. 02/25/2025 Atorvastatin Calcium 80 MG Oral Tablet (Lipitor) TAKE 1 TABLET BY MOUTH EVERY DAY IN THE MORNING 03/04/2025 Morning Linzess 290 MCG Oral Capsule (linaCLOtide) TAKE 1 CAPSULE BY MOUTH EVERY MORNING 03/04/2025 Morning Aspirin Low Dose 81 MG Oral Tablet Delayed Release (aspirin enteric coated) TAKE 1 TABLET BY MOUTH EVERY DAY IN THE MORNING 03/04/2025 Morning Omeprazole 40 MG Oral Capsule Delayed Release (PriLOSEC) TAKE 1 CAPSULE BY MOUTH EVERY MORNING 03/04/2025 Morning Vitamin D (Ergocalciferol) 1.25 MG (83270 UT) Oral Capsule (Drisdol) Take 1 Capsule by mouth once aweek. 02/25/2025 Losartan Potassium 25 MG Oral Tablet (Cozaar) Take 0.5 Tablets by mouth in the morning. 03/04/2025 Morning Metoprolol Succinate ER 25 MG Oral Tablet Extended Release 24 Hour (toPROL XL) Take 0.5 Tablets by mouth in the morning. 03/05/2025 at 7:00 AM Acetaminophen ER 650 MG Oral Tablet Extended Release (Tylenol 8 Hour) Take 1 Tablet by mouth every 6 hours. Patient taking differently: Take 1 Tablet by mouth every 8 hours as needed for Pain, Breakthrough or Fever >38C(100.5F). Past Week QUEtiapine Fumarate 300 MG Oral Tablet (SEROquel) Take 1 Tablet by mouth at bedtime. 03/04/2025 Evening Dicyclomine HCl 20 MG Oral Tablet (Bentyl) Take 1 Tablet by mouth as needed (abdominal cramping). Past Week LORazepam 1 MG Oral Tablet (Ativan) TAKE 1/2 TABLET BY MOUTH 4 TIMES A DAY NEEDED FOR ANXIETY 03/04/2025 Bedtime busPIRone (BUSPAR) 15 MG Tablet Take 1 Tablet by mouth in the morning and 1 Tablet at noon and 1 Tablet before bedtime. 03/04/2025 Evening Suvorexant 20 MG Oral Tablet Take 1 Tab by mouth at bedtime. 03/04/2025 Bedtime Famotidine 20 MG Oral Tablet (Pepcid) Take 1 Tablet by mouth at bedtime. Patient not taking: Reported on 02/27/2025 Not Taking Hydrocortisone 2.5 % External Cream Apply topically to affected areas on hands twice daily Patient not taking: Reported on 03/05/2025 Not Taking Cetirizine HCl 10 MG Oral Tablet (ZyrTEC) Take 1 Tablet by mouth in the morning. Patient not taking: Reported on 02/27/2025 Not Taking Thyroid 30 MG Oral Tablet ([place] Thyroid) one pill twice a day Patient not taking: Reported on 02/27/2025 Not Taking Glucose Blood In Vitro Strip Use to check blood sugars daily while fasting E11.9 Over 30 Days Hyoscyamine Sulfate 0.125 MG Sublingual Tablet Sublingual (Levsin) DISSOLVE ONE TABLET UNDER THE TONGUE 4 TIMES DAILY NEEDED FOR ABDOMINAL PAIN IF UNABLE TO TOLERATE BENTYL. Over 30 Days Review of patient's allergies indicates: Allergen Reactions Alendronate Stomach upset Clarithromycin Stomach pain Codeine IBS- stomach issues Other reaction(s): can't breathe Egg-Derived Products Hives Patient states she can eat products that contain small amounts of eggs, but not an egg alone. Ensure Nausea/vomiting Morphine chest pain Other reaction(s): can't breathe Physical Exam: Mental Status Examination: alert and oriented. General: nad, calm Airway Examination: normal oropharyngeal airway and neck mobility. Respiratory Examination: symmetrical excursion Cardiac: RRR, no murmurs Abd:soft/ntd ASA Grade: III After reviewing the risks and benefits, the patient was deemed in satisfactory condition to undergothe procedure. The anesthesia plan was to use general anesthesia. Connie Gonzalez DO Gastroenterology and Hepatology 03/05/2025 documented in this encounter Procedure Notes * Connie Stephens CRNP - 03/05/2025 12:18 PM EDTAssociated Order(s): UPPER GI ENDOSCOPY [facility] Patient Name: Greg Phillip Procedure Date: 03/05/2025 12:18 PM Date of : 1965 Admit Type: Outpatient Note Status: Finalized Date of : 1965 Admit Type: Outpatient Age: 59 Room: [facility] 2 Gender: Female Note Status: Finalized Procedure: Upper GI endoscopy Indications: Generalized abdominal pain, Heartburn, Abdominal bloating Providers: Connie Gonzalez DO (Doctor) Patient Profile: This is a 59 year old female. Refer to note in patient chart for documentation of history and physical. Referring MD: Connie Stephens (Referring MD), Neva Samayoa (Referring MD) Medicines: General Anesthesia Complications: No immediate complications. Procedure: Pre-Anesthesia Assessment: - Prior to the procedure, a History and Physical was performed, and patient medications and allergies were reviewed. The risks and benefits of the procedure and the sedation options and risks were discussed with the patient. All questions were answered and informed consent was obtained. Patient identification and proposed procedure were verified by the physician, the nurse and the grapple crew leader in the procedure room. Mental Status Examination: alert and oriented. Airway Examination: Mallampati Class II (the uvula but not tonsillar pillars visualized). Respiratory Examination: clear to auscultation. CV Examination: RRR, no murmurs, no S3 or S4. Prophylactic Antibiotics: The patient does not require prophylactic antibiotics. Prior Anticoagulants: The patient has taken no anticoagulant or antiplatelet agents. ASA Grade Assessment: III - A patient with severe systemic disease. After reviewing the risks and benefits, the patient was deemed in satisfactory condition to undergo the procedure. The anesthesia plan was to use general anesthesia. Immediately prior to administration of medications, the patient was re-assessed for adequacy to receive sedatives. The physical status of the patient was re-assessed after the procedure. After obtaining informed consent, the endoscope was passed under direct vision. All instruments were visually inspected immediately before and after removal from the patient to ensure they are fully intact. Throughout the procedure, the patient's blood pressure, pulse, and oxygen saturations were monitored continuously.The upper GI endoscopy was accomplished without difficulty. The patient tolerated the procedure well. The GIF-H180 Endoscope ([id number]) was introduced through the mouth, and advanced to the second part of duodenum. Findings & Specimens: The Z-line was regular and was found 35 cm from the incisors. The examined esophagus was normal. 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 The entire examined stomach was normal. Biopsies were taken with a cold forceps for Helicobacter pylori testing. Verification of patient identification for the specimen was done by the physician and nurse using the patient's name and date. The pathology specimen was placed into Bottle Number 1. The duodenal bulb and second portion of the duodenum were normal. Impression: - Z-line regular, 35 cm from the incisors. - Normal esophagus. - Ectopic gastric mucosa in the upper third of the esophagus. - Normal stomach. Biopsied. - Normal duodenal bulb and second portion of the duodenum. Recommendation: - Patient has a contact number available for emergencies. The signs and symptoms of potential delayed complications were discussed with the patient. Return to normal activities tomorrow. Written discharge instructions were provided to the patient. - The patient will be observed post-procedure, until all discharge criteria are met. - Discharge patient to home (with escort). - Resume previous diet. - Continue present medications. - Await pathology results. Connie Gonzalez DO 03/05/2025 12:32:37 PM This report has been signed electronically. documented in this encounter Nursing Notes * Brigid Mckenna RN - 03/05/2025 1:11 PM EDT Patient is alert, pain free, passing flatus and tolerating po fluids prior to discharge. Patient has been visited by Dr. Gonzalez. Patient has received and demonstrates understanding of discharge instructions. Patient is transported via ambulated to private auto accompanied by endo staff. * Brigid Mckenna RN - 03/05/2025 12:34 PM EDT Patient transferred to pacu 2 status post EGD. Patient awake. Denies pain and nausea. Respirations are even and unlabored on room air. Abdomen soft and non distended. Vital signs stable. Report was received from CLAY. RN at bedside. Call quintanilla is available to the patient. * Adrienne Brock RN - 03/05/2025 12:30 PM EDT Specimen(s) and location(s) verified with physician post procedure 12:30 PM Adrienne Brock, RN Pt estelle EGD w/ bx well. Abd soft post proc. To recovery lying on L side w/ HOB elevated. Pre cleaning of scope at the bedside started by cert pharmacy tech. See anesthesia record for medication administered during procedure. Adrienne Brock RN * Robinson Knapp RN - 03/05/2025 11:09 AM EDT The following pt discharge instructions reviewed with pt prior to prodedure: No driving today. No alcohol today. No signing of legal documents. Rest as much as possible today and can return to normal activities tomorrow. No operating any heavy equipment today. Diet as tolerated. Pt verbalized understanding. documented in this encounter Plan of Treatment Upcoming Encounters Date Type Department Care Team (Late st Contact Info) Description 04/12/2025 10:30 AM EDT Nurse Only Rheumatology [facility] [address] [place] [phone] Nurse Andreina Mcghee [address] [address] 04/18/2025 8:00 AM EDT Office Visit Cardiology, [facility] [address] [place] [phone] Eendina Nogueira CRNP [address] [place] [address] [place] [address] 07/25/2025 11:00 AM EDT [facility] [address] [place] [phone] Connie Stephens CRNP [address] [place] [address] Pending Results Name Type Priority Associated Diagnoses Date /Time SURGICAL PATHOLOGY Pathology Routine Gastroesophageal reflux disease, unspecified whether esophagitis present Irritable bowel syndrome with constipation 03/05/2025 12:30 PM EDT Scheduled Orders Name Type Priority Associated Diagnoses Orde r Schedule GLUCOSE METER, POINT OF CARE (COMMUNICATION ORDER) Point of Care Testing Routine Perform Now for 1 Occurrences starting 03/05/2025 until 03/05/2025 SURGICAL PATHOLOGY Pathology Routine Gastroesophageal reflux disease, unspecified whether esophagitis present Irritable bowel syndrome with constipation Release Upon Ordering for 1 Occurrences starting 03/05/2025, 1 completed Scheduled Procedures Name Priority Associated Diagnoses Date/Ti me COLONOSCOPY FLEXIBLE PROXIMA L DIAGNOSTIC Recall Family history of colon cancer Health Maintenance Due Date Last Done Comments DISCUSS TOBACCO CESSATION (REFER TO SMARTSET #[id number]) 1965 Depression Monitoring 1975 HIV Screening 1978 [...] D LEVEL ONCE IN A LIFETIME-USE SMARTSET# [id number] Completed 01/26/2025, 08/11/2024, 04/04/2024, Additional history exists [...] Procedure Name Priority Date/Time Associated Diagnosis Comments UPPER GI ENDOSCOPY 03/05/2025 12 :18 PM EDT GLUCOSE METER, POINT OF CARE EMRE 03/05/2025 11:31 AM EDT documented in this encounter Results * UPPER GI ENDOSCOPY (03/05/2025 12:18 PM EDT) 03/05/2025 12:1 8 PM EDT Narrative Procedure Note Connie Stephens CRNP - 03/05/2025 12:18 PM EDT [facility] Patient Name: Greg Phillip Procedure Date: 03/05/2025 12:18 PM Date of : 1965 Admit Type: Outpatient Note Status:Finalized Date of : 1965 Admit Type: Outpatient Age: 59 Room: Endo 2 Gender: Female Note Status: Finalized Procedure: Upper GI endoscopy Indications: Generalized abdominal pain, Heartburn, Abdominalbloating Providers: Connie Gonzalez DO (Doctor) Patient Profile: This is a 59 year old female. Refer to note inpatient chart for documentation of history and physical. Referring MD: Connie Stephens (Referring MD), Neva Samayoa(Referring MD) Medicines: General Anesthesia Complications: No immediate complications. Procedure: Pre-Anesthesia Assessment: - Prior to the procedure, a History and Physicalwas performed, and patient medications and allergies were reviewed. The risksand benefits of the procedure and the sedation options and risks were discussed withthe patient. All questions were answered and informed consent was obtained. Patientidentification and proposed procedure were verified by the physician, the nurseand the grapple crew leader in the procedure room. Mental Status Examination: alertand oriented. Airway Examination: Mallampati Class II (the uvula but not tonsillarpillars visualized). Respiratory Examination: clear to auscultation. CV Examination:RRR, no murmurs, no S3 or S4. Prophylactic Antibiotics: The patient does notrequire prophylactic antibiotics. Prior Anticoagulants: The patient has taken noanticoagulant or antiplatelet agents. ASA Grade Assessment: III - A patient with severesystemic disease. After reviewing the risks and benefits, the patient was deemed insatisfactory condition to undergo the procedure. The anesthesia plan was to usegeneral anesthesia. Immediately prior to administration of medications, the patient wasre-assessed for adequacy to receive sedatives. The physical status of the patient wasre-assessed after the procedure. After obtaining informed consent, the endoscope waspassed under direct vision. All instruments were visually inspected immediatelybefore and after removal from the patient to ensure they are fully intact. Throughout the procedure, the patient's bloodpressure, pulse, and oxygen saturations were monitored continuously.The upper GI endoscopywas accomplished without difficulty. The patient tolerated the procedurewell. The GIF-H180 Endoscope ([id number]) was introduced through the mouth, andadvanced to the second part of duodenum. Findings & Specimens: The Z-line was regular and was found 35 cm from the incisors. The examined esophagus was normal. A single area of ectopic gastric mucosa was found in the upper thirdof the esophagus. The entire examined stomach was normal. Biopsies were taken with acold forceps for Helicobacter pylori testing. Verification of patient identification for the specimen wasdone by the physician and nurse using the patient's name and date. The pathology specimen wasplaced into Bottle Number 1. The duodenal bulb and second portion of the duodenum were normal. Impression: - Z-line regular, 35 cm from the incisors. - Normal esophagus. - Ectopic gastric mucosa in the upper third of theesophagus. - Normal stomach. Biopsied. - Normal duodenal bulb and second portion of theduodenum. Recommendation: - [facility] The signs and symptoms of potential delayed complications were discussed withthe patient. Return to normal activities tomorrow. Written discharge instructionswere provided to the patient. - The patient will be observed post-procedure,until all discharge criteria are met. - Discharge patient to home (with escort). - Resume previous diet. - Continue present medications. - Await pathology results. Connie Gonzalez DO 03/05/2025 12:32:37 PM This report has been signed electronically. Connie RODRIGUEZ GASTRO UPPER Final R esult * GLUCOSE METER, POINT OF CARE (03/05/2025 11:31 AM EDT) Glucose - POCT 109 70 - 120 mg/dL 03/05/2025 11:44 AM EDT [facility] Blood Whole blood specimen / Unknown 03/05/2025 11:31 AM EDT 03/05/2025 11:44 AM EDT Connie Gonzalez DO LAB POINT OF C ARE TEST DOCKED DEVICE UNSOLICITED RESULTS Final Result [facility] [address] [facility] [place] [address] documented in this encounter Visit Diagnoses Diagnosis Gastroesophageal reflux disease, unspecified whether esophagitis present Irritable bowel syndrome with constipation Irritable bowel syndrome documented in this encounter Administered Medications Inactive Administered Medications - up to 3 most recent administrations Medication Order MAR Action Action Date Dose Rate Site NSS infusion Intravenous, at 100 mL/hr, CONTINUOUS, Starting on Wed03/05/25 at 1145, Until Wed03/05/25 at 1714 Continue from Pre-Op 03/05/2025 12:16 PM EDT 100 mL/hr New Bag 03/05/2025 11:34 AM EDT 100 mL/hr H and Right documented in this encounter Active and Recently Administered Medications Times are shown in EDT. Continuous Medication Order 03/03/2025 03/04/2025 03/05/2025 NSS infusion Intravenous, at 100 mL/hr, CONTINUOUS, Starting on Wed03/05/25 at 1145, Until Wed03/05/25 at 1714 1134 (New Bag - Prov ider: Robinson Knapp RN)1216 (Continue from Pre-Op - Provider: Kimberly Polo CRNA)1236 (Anes Intra-Op Fluid - Provider: Kimberly Polo CRNA) documented in this encounter Care Teams Supervisor [employer] Relationship Specialty Start Date End Date Neva Samayoa MD [address] [place] [address] PCP - General Family Medicine 11/30/24 documented as of this encounter
--- OUTSIDE RECORDS SUMMARY | 2025-03-19 13:58 | External Medical Summary ---
Author Name Unknown Address Unknown Organization : Laboratory Report Ordering Provider Test Date Status [facility] [place] 03/05/2025 11:31:23 Final Observation Date Value Abnormality Reference (Units ) Status Glucose Point of Care 03/05/2025 11:31:23 109 70-120 (mg/dL) Final Performing Location
--- OUTSIDE RECORDS SUMMARY | 2025-03-19 13:58 | External Medical Summary | Summary of Care ---
Author Name Unknown Organization [facility] Address [address] [place] [address] Phone [phone] Care Team Providers Care Nuclear Physicist Name Role Phone Neva Samayoa MD Primary Care Provider [phone] Reason for Visit * Reason Onset Date Comments Patient Instructions 02/15/2025 Encounter Details Date Type Department Care Team (Late st Contact Info) Description 02/15/2025 Telephone Gastroenterology, [facility] [address] [place] [address] Specified, Zz No Resource [address] [place] [address] Patient Instructions Allergies Active Allergy Reactions Criticality Noted Date [...] Active Additional Information Patient taking differently:650 mg [id number] PRN, Pain, Breakthrough, Fever >38C(100.5F), Reported on 02/13/2025 Metoprolol Succinate ER 25 MG Oral Tablet Extended Release 24 Hour (toPROL XL)Indications:His tory of ST elevation myocardial infarction (STEMI) Take 0.5 Tablets by mouth in the morning. 45 Tablet 3 01/06/20 24 Active Thyroid 30 MG Oral Tablet ([place] Thyroid)Indication s:Primary hypothyroidism one pill twice a day 180 Tablet 3 04/11/20 24 Active Losartan Potassium 25 MG Oral Tablet (Cozaar)Indication s:HTN, goal below 130/80 Take 0.5 Tablets by mouth in the morning. 45 Tablet 3 04/21/20 24 Active Vitamin D (Ergocalciferol) 1.25 MG (59474 UT) Oral Capsule (Drisdol)Indicatio ns:Senile osteoporosis Take [...] hypothyroidism 04/04/2024 Coronary artery disease invo lving [place] coronary artery of [place] heart without angina pectoris 08/13/2023 Diabetes mellitus [...] mRNA, LNP-s, No Pre serve, 2-Dose Series ([facility]) 04/18/2021,03/28/2021 COVID-19, LNP-s, No Preserve , Shailesh-sucrose, Ages 12+ ([facility]) 10/21/2021 Covid-19, Mrna, Lnp-s, Pf, B ivalent, 30 Mcg, IM, 12 yrs and above ([facility]) 09/10/2022 Pneumococcal Conjugate Vaccine, 20-valent (Prevn ar20) [...] on file documented as of this encounter Plan of Treatment Upcoming Encounters Date Type Department Care Team (Latest Contact Info) Description 02/22/2025 7:45 AM EDT Imaging Radiology Alfredo Mcghee [place] [address] [place] [address] 03/05/2025 11:45 AM EDT Hospital Encounter ENDO O[facility], Endoscopy Room [facility] [address] [place] [address] Connie Gonzalez, [address] [place] [address] 03/05/2025 11:45 AM EDT - 03/05/2025 12:15 PM EDT Surgery ENDO [facility], Endoscopy Room [facility] [address] [place] [address] Connie Gonzalez, [address] [place] [address] ESOPHAGOGASTRODUODENOSCOPY (EGD), FLEXIBLE, TRANSORAL, DIAGNOSTIC 04/12/2025 10:30 AM EDT Nurse Only Rheumatology Alfredo Mcghee [place] [address] [place] [address] Nurse Andreina Mcghee [address] [place] [address] [place] [address] 04/18/2025 8:00 AM EDT Office Visit Cardiology, Alfredo Mcghee [place] [address] [place] [address] Enedina Nogueira CRNP [address] [place] [address] 07/25/2025 11:00 AM EDT Office Visit Gastroenterolog y, [facility] [address] [place] [phone] Connie Stephens CRNP [address] [place] [address] Scheduled Procedures Name Priority Associated Diagnoses Date/Ti me ESOPHAGOGASTRODUODENOSCOPY ( EGD), FLEXIBLE, TRANSORAL, DIAGNOSTIC Gastroesophageal reflux disease, unspecified whether esophagitis present Irritable bowel syndrome with constipation 03/05/2025 11:45 AM EDT COLONOSCOPY FLEXIBLE PROXIMA L DIAGNOSTIC Recall Family history of colon cancer Health Maintenance Due Date Last Done Comments DISCUSS TOBACCO CESSATION (REFER TO SMARTSET #0287) 1963 HIV Screening 1978 HPV/Co-Test 1993 Cologuard [...] D LEVEL ONCE IN A LIFETIME-USE SMARTSET# [id number] Completed 01/26/2025, 08/11/2024, 04/04/2024, Additional history exists [...] filedocumented as of this encounter Care Teams Nuclear Physicist Relationship Specialty Start Date End Date Neva Samayoa MD [address] [place] [address] PCP - General Family Medicine 11/30/24 documented as of this encounter
--- OUTSIDE RECORDS SUMMARY | 2025-03-19 13:58 | External Medical Summary | Summary of Care ---
Author Name Unknown Organization [facility] Address [address] [place] [address] Phone [phone] Care Team Providers Care Computer Security Specialist Name Role Phone Neva Samayoa MD Primary Care Provider Reason for Visit * Reason Onset Date Comments Test Results Lab 02/15/2025 Encounter Details Date Type Department Care Team (Late st Contact Info) Description 02/15/2025 Telephone Gastroenterology, [facility] [address] [facility] [address] Connie Stephens CR[facility] [address] [facility] [address] Test Results Lab Allergies Active Allergy Reactions Criticality Noted Date [...] Active Additional Information Patient taking differently:650 mg [id number] PRN, Pain, Breakthrough, Fever >38C(100.5F), Reported on 02/13/2025 Metoprolol Succinate ER 25 MG Oral Tablet Extended Release 24 Hour (toPROL XL)Indications:His tory of ST elevation myocardial infarction (STEMI) Take 0.5 Tablets by mouth in the morning. 45 Tablet 3 01/06/20 24 Active Thyroid 30 MG Oral Tablet ([place] Thyroid)Indication s:Primary hypothyroidism one pill twice a day 180 Tablet 3 04/11/20 24 Active Losartan Potassium 25 MG Oral Tablet (Cozaar)Indication s:HTN, goal below 130/80 Take 0.5 Tablets by mouth in the morning. 45 Tablet 3 04/21/20 24 Active Vitamin D (Ergocalciferol) 1.25 MG (73802 UT) Oral Capsule (Drisdol)Sonny ns:Senile osteoporosis Take 1 Capsule by mouth [...] hypothyroidism 04/04/2024 Coronary artery disease invo lving [place] coronary artery of [place] heart without angina pectoris 08/13/2023 Diabetes mellitus [...] mRNA, LNP-s, No Pre serve, 2-Dose Series ([facility]) 04/18/2021,03/28/2021 COVID-19, LNP-s, No Preserve , Shailesh-sucrose, Ages 12+ ([facility]) 10/21/2021 Covid-19, Mrna, Lnp-s, Pf, B ivalent, 30 Mcg, IM, 12 yrs and above ([facility]) 09/10/2022 Pneumococcal Conjugate Vaccine, 20-valent (Prevn ar20) [...] encounter Miscellaneous Notes * Telephone Encounter - Ilana Whitten RN - 02/15/2025 3:25 PM EDT Pt notified * Telephone Encounter - Ilana Whitten RN - 02/15/2025 3:23 PM EDT ----- Message from Connie Stephens sent at 02/15/2025 1:04 PM EDT ----- Mild elevation in WBCs similar to 2 weeks ago. Patient not exhibiting any symptoms suggestive of infection. Would recommend follow-up with PCP. documented in this encounter Plan of Treatment Upcoming Encounters Date Type Department Care Team (Latest Contact Info) Description 02/22/2025 7:45 AM EDT Imaging Radiology [facility] [address] [place] [address] 03/05/2025 11:45 AM EDT Hospital Encounter ENDO [facility], Endoscopy Room [facility] [address] [place] [phone] Connie Gonzalez DO [address] [place] [address] 03/05/2025 11:45 AM EDT - 03/05/2025 12:15 PM EDT Surgery ENDO [facility], Endoscopy Room [facility] [address] [place] [phone] Connie Gonzalez DO [address] [place] [address] ESOPHAGOGASTRODUODENOSCOPY (EGD), FLEXIBLE, TRANSORAL, DIAGNOSTIC 04/12/2025 10:30 AM EDT Nurse Only Rheumatology [facility] [address] [place] [address] [facility], Nurse Rheum [place] [id number] [place] [address] 04/18/2025 8:00 AM EDT Office Visit Cardiology, [facility] [address] [place] [phone] Enedina Nogueira CRNP [address] [place] [address] [place] [address] 07/25/2025 11:00 AM EDT Office Visit Gastroenterolog y, [facility] [address] [place] [phone] Connie Stephens CRNP [address] [place] [address] Scheduled Procedures Name Priority Associated Diagnoses Date/Ti me ESOPHAGOGASTRODUODENOSCOPY ( EGD), FLEXIBLE, TRANSORAL, DIAGNOSTIC Gastroesophageal reflux disease, unspecified whether esophagitis present Irritable bowel syndrome with constipation 03/05/2025 11:45 AM EDT COLONOSCOPY FLEXIBLE PROXIMA L DIAGNOSTIC Recall Family history of colon cancer Health Maintenance Due Date Last Done Comments DISCUSS TOBACCO CESSATION (REFER TO SMARTSET #9662) 1965 HIV Screening 1978 HPV/Co-Test 1993 Cologuard [...] D LEVEL ONCE IN A LIFETIME-USE SMARTSET# [id number] Completed 01/26/2025, 08/11/2024, 04/04/2024, Additional history exists [...] filedocumented as of this encounter Care Teams Computer Security Specialist Relationship Specialty Start Date End Date Neva Samayoa MD [address] [place] [address] PCP - General Family Medicine 11/30/24 documented as of this encounter
--- OUTSIDE RECORDS SUMMARY | 2025-03-19 13:58 | External Medical Summary | Summary of Care ---
Author Name Unknown Organization [facility] Address [address] [place] [address] Phone [phone] Care Team Providers Care Senior Director Finance Name Role Phone Neva Samayoa MD Primary Care Provider [phone] Reason for Visit * Reason Comments eRx-Medication Refill Encounter Details Date Type Department Care Team (Late st Contact Info) Description 03/07/2025 Refill Cardiology, [facility] [address] [place] [address] Abby Garcia, [address] [place] [address] elevation myocardial infarction (STEMI) Allergies Active Allergy Reactions Criticality Noted Date [...] 4 TIMES A DAY NEEDED FOR ANXIETY Active Glucose Blood In Vitro Strip Use to check blood sugars daily while fasting E11.9 300 Strip 11 023 Active Hyoscyamine Sulfate 0.125 MG Sublingual Tablet Sublingual (Levsin) DISSOLVE ONE TABLET UNDER THE TONGUE 4 TIMES DAILY NEEDED FOR ABDOMINAL PAIN IF UNABLE TO TOLERATE BENTYL. 360 Tablet 3 023 Active Dicyclomine HCl 20 MG Oral Tablet (Bentyl)Indicatio ns:Irritable bowel syndrome with constipation Take 1 Tablet by mouth as needed (abdominal cramping). 270 Tablet 1 023 Active QUEtiapine Fumarate 300 MG Oral Tablet (SEROquel) Take 1 Tablet by mouth at bedtime. 023 Active Acetaminophen ER 650 MG Oral Tablet Extended Release (Tylenol 8 Hour)Indications: Hematoma of groin, subsequent encounter,S/P cardiac cath Take 1 Tablet by mouth every 6 hours. 023 Active Additional Information Patient taking differently:650 mg [id number] PRN, Pain, Breakthrough, Fever >38C(100.5F), Reported on 03/05/2025 Thyroid 30 MG Oral Tablet ([place] Thyroid)Indicatio ns:Primary hypothyroidism one pill twice a day 180 Tablet 3 024 Active Additional Information Patient not taking.Reported on 02/27/2025 Losartan Potassium 25 MG Oral Tablet (Cozaar)Indicatio ns:HTN, goal below 130/80 Take 0.5 Tablets by mouth in the morning. 45 Tablet 3 024 Active Vitamin D (Ergocalciferol) 1.25 MG (06463 UT) Oral Capsule (Drisdol)Indicati ons:Senile osteoporosis Take 1 Capsule by mouth once a week. 12 Capsule 3 024 2024 Active Cetirizine HCl 10 MG Oral Tablet (ZyrTEC) Take 1 Tablet by mouth in the morning. 90 Tablet 3 024 Active Additional Information Patient not taking.Reported on 02/27/2025 Omeprazole 40 MG Oral Capsule Delayed Release (PriLOSEC)Indicat ions:Gastritis, bile acid reflux TAKE 1 CAPSULE BY MOUTH EVERY MORNING 90 Capsule 2 024 Active Aspirin Low Dose 81 MG Oral Tablet Delayed Release (aspirin enteric coated) TAKE 1 TABLET BY MOUTH EVERY DAY IN THE MORNING 90 Tablet 3 024 Active Linzess 290 MCG Oral Capsule (linaCLOtide) TAKE 1 CAPSULE BY MOUTH EVERY MORNING 90 Capsule 3 024 Active Atorvastatin Calcium 80 MG Oral Tablet (Lipitor) TAKE 1 TABLET BY MOUTH EVERY DAY IN THE MORNING 90 Tablet 1 025 Active Hydrocortisone 2.5 % External CreamIndications: Atopic dermatitis, unspecified type Apply topically to affected areas on hands twice daily 30 g 025 Active Additional Information Patient not taking.Reported on 03/05/2025 Mounjaro 7.5 MG/0.5ML Subcutaneous Solution Auto-injector (Tirzepatide)Suzy cations:Diabetes mellitus without complication (HCC) Inject 7.5 mg under the skin once a week. 2 mL 11 025 2025 Active Famotidine 20 MG Oral Tablet (Pepcid) Take 1 Tablet by mouth at bedtime. 30 Tablet 2 025 Active Additional Information Patient not taking.Reported on 02/27/2025 Metoprolol Succinate ER 25 MG Oral Tablet Extended Release 24 Hour (toPROL XL)Indications:Hi story of ST elevation myocardial infarction (STEMI) TAKE 1/2 TABLET BY MOUTH IN THE MORNING 45 Tablet 3 Active Metoprolol Succinate ER 25 MG Oral Tablet Extended Release 24 Hour (toPROL XL)Indications:Hi story of ST elevation myocardial infarction (STEMI) Take 0.5 Tablets by mouth in the morning. 45 Tablet 3 024 2024 Discontinued documented as of this encounter (statuses as of 03/09/2025) Active Problems Problem Noted Date Diagnosed Date History of ST elevation myocardial infarction (S DANIEL) 04/04/2024 Dyslipidemia, goal LDL below 70 04/04/2024 HTN, goal below 130/80 04/04/2024 Primary hypothyroidism 04/04/2024 Coronary artery disease invo lving [place] coronary artery of [place] heart without angina pectoris 08/13/2023 Diabetes mellitus without complication Adrenal mass 02/11/2022 Positional sleep apnea 01/15/2021 [...] mRNA, LNP-s, No Pre serve, 2-Dose Series ([employer]) 04/18/2021,03/28/2021 COVID-19, LNP-s, No Preserve , Shailesh-sucrose, Ages 12+ ([employer]) 10/21/2021 Covid-19, Mrna, Lnp-s, Pf, B ivalent, 30 Mcg, IM, 12 yrs and above ([employer]) 09/10/2022 Pneumococcal Conjugate Vaccine, 20-valent (Prevn ar20) [...] encounter Miscellaneous Notes * Telephone Encounter - Ninfa Chong [facility] - 03/08/2025 4:44 PM EDTSigned Prescriptions: Disp Refills Metoprolol Succinate ER 25 MG Oral Tablet *45 Tab*3 Sig: TAKE 1/2 TABLET BY MOUTH IN THE MORNINGAuthorizing Provider: ABBY GARCIA User: NINFA CHONG * Telephone Encounter - John Griffith - 03/07/2025 7:45 PM EDTPending Prescriptions: Disp Refills Metoprolol Succinate ER 25 MG Oral Tablet *45 Tab*3 Sig: TAKE 1/2 TABLET BY MOUTH IN THE MORNING * Telephone Encounter - John Griffith - 03/07/2025 7:43 PM EDT Did you pend patient's preferred pharmacy and medication before forwarding?yes Pharmacy: [id number] [facility] Pending Prescriptions: Disp Refills Metoprolol Succinate ER 25 MG Oral Tablet*45 Tab*3 Sig: TAKE 1/2 TABLET BY MOUTH IN THE MORNING Last Visit: 11/13/2024 (in office), Visit date not found (telemedicine) Next Visit: Visit date not found If no future appointments scheduled, and last appointment is greater than a year ago, please schedule patient for a follow-up appointment Last date the medication was ordered: 01/06/2024 Is this request for a controlled substance?No Urine Drug Screen: Results for orders placed or performed in visit on 02/27/19 OPIOIDS/BENZO COMPLIANCE MONITORING W/INTERP Result Value Pain Management Interpretation (NOTE) URINE DRUG SCREEN RESULT Amphetamine Screen, U NEGATIVE Barbiturates Screen, U NEGATIVE Benzodiazepines Screen, U REFER TO CONFIRMATION RESULT (A) Cannabinoids Screen, U NEGATIVE Cocaine Metabolite Screen, U NEGATIVE Methadone Metabolite Screen, U NEGATIVE Morphine/Codeine Screen, U NEGATIVE Oxycodone Screen, U NEGATIVE COMMENT THE ABOVE SCREENING RESULTS ARE PRESUMPTIVE AND CAN ONLY BE USED FOR MEDICAL PURPOSES. CONFIRMATORY TESTING IS AVAILABLE UPON REQUEST. Cutoff Concentration URINE VALID INTERP NORMAL CREATININE VANDANA 30 *Note: Due to a large number of results and/or encounters for the requested time period, some results have not been displayed. A complete set of results can be found in Results Review. Patient Phone Numbers Labs: Lab Results Component Value Date/Time CREAT 0.8 01/26/2025 08:49 AM CREAT 0.9 05/07/2020 03:35 PM POTASSIUM 5.0 01/26/2025 08:49 AM POTASSIUM 4.1 05/07/2020 03:35 PM TSH 0.88 01/26/2025 08:49 AM TSH 1.45 09/14/2015 08:56 AM LDL 101 01/26/2025 08:49 AM LDL 156 (H) 09/14/2015 08:56 AM ALT 28 01/26/2025 08:49 AM ALT 22 09/30/2018 01:18 PM HGBA1C 6.3 (H) 12/21/2024 01:28 PM documented in this encounter Plan of Treatment Upcoming Encounters Date Type Department Care Team (Late st Contact Info) Description 04/12/2025 10:30 AM EDT Nurse Only Rheumatology [facility] [address] [place] [phone] [place] Nurse Andreina [address] [address] 04/18/2025 8:00 AM EDT Office Visit Cardiology, [facility] [address] [place] [phone] Enedina Nogueira CRNP [address] [facility] [place] [address] 07/25/2025 11:00 AM EDT Office Visit Gastroenterology, [facility] [address] [place] [phone] Connie Stephens CRNP [address] [place] [address] Scheduled Procedures Name Priority Associated Diagnoses Date/Ti me COLONOSCOPY FLEXIBLE PROXIMA L DIAGNOSTIC Recall Family history of colon cancer Health Maintenance Due Date Last Done Comments DISCUSS TOBACCO CESSATION (REFER TO SMARTSET #0130) 1963 Depression Monitoring 1975 HIV Screening 1978 HPV/Co-Test 1993 Cologuard 2008 Fecal Occult Blood Test 2008 Sigmoidoscopy 2008 Cervical Cancer Screening 08/03/2019 Pap Smear 08/03/2019 08/03/2016, 07/23, 11/02/2012, Additional history exists Zoster Vaccines (2 of 2) 02/09/2020 12/15/2019 Mammogram 06/02/2022 06/02/2021, 04/23, 08/06/2017, Additional history exists DTap/Tdap Vaccines (2 - Td or Tdap) 09/29/2022 09/29/2012, 11/22/2003 COVID-19 Vaccine (5 - season) 2024 09/10/2022, 10/21/2021, 04/18/2021, Additional history [...] D LEVEL ONCE IN A LIFETIME-USE SMARTSET# [id number] Completed 01/26/2025, 08/11/2024, 04/04/2024, Additional history exists [...] as of this encounter Visit Diagnoses Diagnosis History of ST elevation myocardial infarction (STEMI) Old myocardial infarction documented in this encounter Care Teams Senior Director Finance Relationship Specialty Start Date End Date Neva Samayoa MD [address] [facility] [place] [address] PCP - General Family Medicine 11/30/24 documented as of this encounter
--- OUTSIDE RECORDS SUMMARY | 2025-03-19 13:58 | External Medical Summary | Summary of Care ---
Author Name Unknown Organization [facility] Address [address] [place] [address] Phone [phone] Care Team Providers Care Voip Engineer Name Role Phone Neva Samayoa MD Primary Care Provider [phone] Reason for Visit * Reason Onset Date Comments Test Results 03/09/2025 Encounter Details Date Type Department Care Team (Late st Contact Info) Description 03/09/2025 Telephone Hepatology, [facility] [address] [facility] [place] [address] Megha Gonzalez DO [address] [place] [address] Test Results Allergies Active Allergy Reactions Criticality [...] Active Additional Information Patient taking differently:650 mg [id number] PRN, Pain, Breakthrough, Fever >38C(100.5F), Reported on 03/05/2025 Thyroid 30 MG Oral Tablet ([place] Thyroid)Indication s:Primary hypothyroidism one pill twice a day 180 Tablet 3 04/11/20 24 Active Additional Information Patient not taking.Reported on 02/27/2025 Losartan Potassium 25 MG Oral Tablet (Cozaar)Indication s:HTN, goal below 130/80 Take 0.5 Tablets by mouth in the morning. 45 Tablet 3 04/21/20 24 Active Vitamin D (Ergocalciferol) 1.25 MG (09019 UT) Oral Capsule (Drisdol)Indicatio ns:Senile osteoporosis Take [...] hypothyroidism 04/04/2024 Coronary artery disease invo lving [place] coronary artery of [place] heart without angina pectoris 08/13/2023 Diabetes mellitus [...] 04/12/2025 10:30 AM EDT Nurse Only Rheumatology [facility] [address] [place] [phone] [place] Nurse Andreina Douglas [address] [place] [address] [place] [address] 04/18/2025 8:00 AM EDT Office Visit [facility], [facility] [address] [place] [phone] Enedina Nogueira CRNP [address] [place] [id number] 07/25/2025 11:00 AM EDT Office Visit Gastroenterology, [facility] [address] [place] [address] Megha Doe CRNP [address] [place] [address] Scheduled Orders Name Type Priority Associated Diagnoses [...] Comments DISCUSS TOBACCO CESSATION (REFER TO SMARTSET #1629) 1963 Depression Monitoring 1975 HIV Screening 1978 [...] D LEVEL ONCE IN A LIFETIME-USE SMARTSET# [id number] Completed 01/26/2025, 08/11/2024, 04/04/2024, Additional history exists [...] hemorrhage documented in this encounter Care Teams Voip Engineer Relationship Specialty Start Date End Date Neva Samayoa MD [address] [place] [address] PCP - General Family Medicine 11/30/24 documented as of this encounter
--- OUTSIDE RECORDS SUMMARY | 2025-03-19 13:59 | External Medical Summary | Summary of Care ---
Author Name Unknown Organization [facility] Address [address] [place] [address] Phone [phone] Care Team Providers Care Grove Superintendent Name Role Phone Neva Samayoa MD Primary Care Provider [phone] Encounter Details Date Type Department Care Team (Late st Contact Info) Description 02/08/2025 Orders Only PATIENT PORTAL DO NOT DELETE THIS DEPT USED BY CORINA BROWN [id number] Allergies Active Allergy Reactions Criticality Noted Date [...] as of this encounter (statuses as of 02/08/2025) Medications Suvorexant 20 MG Oral Tablet Take [...] Active Additional Information Patient taking differently:650 mg [id number] PRN, Pain, Breakthrough, Fever >38C(100.5F), Reported on 01/26/2025 Metoprolol Succinate ER 25 MG Oral Tablet Extended Release 24 Hour (toPROL XL)Indications:His tory of ST elevation myocardial infarction (STEMI) Take 0.5 Tablets by mouth in the morning. 45 Tablet 3 01/06/20 24 Active Thyroid 30 MG Oral Tablet ([place] Thyroid)Indication s:Primary hypothyroidism one pill twice a day 180 Tablet 3 04/11/20 24 Active Losartan Potassium 25 MG Oral Tablet (Cozaar)Indication s:HTN, goal below 130/80 Take 0.5 Tablets by mouth in the morning. 45 Tablet 3 04/21/20 24 Active Vitamin D (Ergocalciferol) 1.25 MG (14183 UT) Oral Capsule (Drisdol)Indicatio ns:Senile osteoporosis Take [...] 2 mL 11 01/27/20 25 026 Active documented as of this encounter (statuses as of 02/08/2025) Active Problems Problem Noted Date Diagnosed Date History of ST elevation myocardial infarction (S DANIEL) 04/04/2024 Dyslipidemia, goal LDL below 70 04/04/2024 HTN, goal below 130/80 04/04/2024 Primary hypothyroidism 04/04/2024 Coronary artery disease invo lving [place] coronary artery of [place] heart without angina pectoris 08/13/2023 Diabetes mellitus [...] as of this encounter (statuses as of 02/08/2025) Resolved Problems Problem Noted Date Diagnosed Date [...] as of this encounter (statuses as of 02/08/2025) Immunizations Name Administration Dates Next Due COVID-19 mRNA, LNP-s, No Pre serve, 2-Dose Series (HackMyPic) 04/18/2021,03/28/2021 COVID-19, LNP-s, No Preserve , Shailesh-sucrose, Ages 12+ (Pfizer) 10/21/2021 Covid-19, Mrna, Lnp-s, Pf, B ivalent, 30 Mcg, IM, 12 yrs and above (HackMyPic) 09/10/2022 Pneumococcal Conjugate Vaccine, 20-valent (Prevn ar20) [...] 02/11/2024 Does the household have a re lar source of income? (Household - for ages [...] Care Team (Late st Contact Info) Description 03/29/2025 7:40 AM EDT Office Visit Family Practice [facility] [address] [facility] [place] [address] Neva Samayoa MD [address] [facility] [place] [address] 04/12/2025 10:30 AM EDT Nurse Only Rheumatology [facility] [address] [place] [phone] Taz Nurse Andreina [address] [place] [address] 04/18/2025 8:00 AM EDT Office Visit Cardiology, [facility] [address] [place] [address] Enedina Nogueira CRNP [address] [facility] [place] [phone] Scheduled Procedures Name Priority Associated Diagnoses Date/Ti me COLONOSCOPY FLEXIBLE PROXIMA L DIAGNOSTIC Recall Family history of colon cancer Health Maintenance Due Date Last Done Comments DISCUSS TOBACCO CESSATION (REFER TO SMARTSET #5161) 1965 HIV Screening 1978 HPV/Co-Test 1993 Cologuard [...] D LEVEL ONCE IN A LIFETIME-USE SMARTSET# 18582 Completed 01/26/2025, 08/11/2024, 04/04/2024, Additional history exists [...] filedocumented as of this encounter Care Teams Grove Superintendent Relationship Specialty Start Date End Date Neva Samayoa MD [address] [place] [address] PCP - General Family Medicine 11/30/24 documented as of this encounter
--- OUTSIDE RECORDS SUMMARY | 2025-03-19 13:59 | External Medical Summary ---
Author Name Unknown Address Unknown Organization [id number]:[facility] [address] [place] [address] Laboratory Report Ordering Provider Test Date Status [place] 02/15/2025 11:43:21 Final Observation Date Value Abnormality Reference (Units ) Status SYNC LEUKOCYTES IN BLOOD BY AUTOMATED COUNT 02/15/2025 11:43:21 13.27 Above high normal 4.00-10.80 (K/uL) Final Segs 02/15/2025 11:43:21 49.8 40.0-75.0 (%) Final Lymphs % 02/15/2025 11:43:21 41.6 18.0-42.0 (%) Final Monos 02/15/2025 11:43:21 6.2 1.0-11.0 (%) Final Eosinophils 02/15/2025 11:43:21 2.2 0.0-6.0 (%) Final Basos 02/15/2025 11:43:21 0.2 0.0-2.0 (%) Final Absolute Segs 02/15/2025 11:43:21 6.62 1.80-7.70 (K/uL) Final Lymphs, absolute 02/15/2025 11:43:21 5.52 Above high normal 1.00-4.80 (K/ul) Final Monos, Abs 02/15/2025 11:43:21 0.82 0.00-1.10 (K/uL) Final Eos, Abs 02/15/2025 11:43:21 0.29 0.00-0.70 (K/uL) Final Basos, Abs 02/15/2025 11:43:21 0.02 0.00-0.20 (K/uL) Final Performing Location [facility] - [address] [place] [address]
--- OUTSIDE RECORDS SUMMARY | 2025-03-19 13:59 | External Medical Summary | Summary of Care ---
Author Name Unknown Organization [facility] Address [address] [place] [address] Phone [phone] Care Team Providers Care All Round Butcher Name Role Phone Neva Samayoa MD Primary Care Provider [phone] Reason for Visit * Reason Comments Re-Check Encounter Details Date Type Department Care Team (Late st Contact Info) Description 01/26/2025 8:00 AM EST Office Visit [facility] [address] [place] [address] Neva Samayoa MD [address] [place] [address] Diabetes mellitus without complication (HCC)*; Dyslipidemia, goal LDL below 70; HTN, goal below 130/80; Coronary artery disease involving [place] coronary artery of [place] heart without angina pectoris; History of ST elevation myocardial infarction (STEMI); Primary hypothyroidism; Vitamin D insufficiency; Senile osteoporosis; Moderate episode of recurrent major depressive disorder (HCC); PTSD (post-traumatic stress disorder); Adrenal mass (HCC); Irritable bowel syndrome with constipation; Malaise and fatigue Allergies Active Allergy Reactions Criticality Noted Date [...] as of this encounter (statuses as of 01/26/2025) Medications Suvorexant 20 MG Oral Tablet Take 1 Tab by mouth at bedtime. Active busPIRone (BUSPAR) 15 MG Tablet Take 1 Tablet by mouth in the morning and 1 Tablet at noon and 1 Tablet before bedtime. Active LORazepam 1 MG Oral Tablet (Ativan) TAKE 1/2 TABLET BY MOUTH 4 TIMES A DAY NEEDED FOR ANXIETY 022 Active Glucose Blood In Vitro Strip Use [...] Active Additional Information Patient taking differently:650 mg [id number] PRN, Pain, Breakthrough, Fever >38C(100.5F), Reported on 01/26/2025 Metoprolol Succinate ER 25 MG Oral Tablet Extended Release 24 Hour (toPROL XL)Indications:Hi story of ST elevation myocardial infarction (STEMI) Take 0.5 Tablets by mouth in the morning. 45 Tablet 3 024 Active Thyroid 30 MG Oral Tablet ([place] Thyroid)Indicatio ns:Primary hypothyroidism one pill twice a day 180 Tablet 3 024 Active Losartan Potassium 25 MG Oral Tablet (Cozaar)Indicatio ns:HTN, goal below 130/80 Take 0.5 Tablets by mouth in the morning. 45 Tablet 3 024 Active Vitamin D (Ergocalciferol) 1.25 MG (52598 UT) Oral Capsule (Drisdol)Indicati ons:Senile osteoporosis Take 1 Capsule by mouth once a week. 12 Capsule 3 024 2024 Active Cetirizine HCl 10 MG Oral Tablet (ZyrTEC) Take 1 Tablet by mouth in the morning. 90 Tablet 3 024 Active Omeprazole 40 MG Oral Capsule Delayed [...] hands twice daily 30 g 025 Active Mounjaro 7.5 MG/0.5ML Subcutaneous Solution Auto-injector (Tirzepatide)Suzy cations:Diabetes mellitus without complication (HCC) Inject 7.5 mg under the skin once a week. 2 mL 11 025 2025 Active Mounjaro 5 MG/0.5ML Subcutaneous Solution Auto-injector (Tirzepatide)Suzy cations:Diabetes mellitus without complication (HCC) Inject 5 mg under the skin once a week. 2 mL 11 024 2024 Discontinued documented as of this encounter (statuses as of 01/26/2025) Active Problems Problem Noted Date Diagnosed Date History of ST elevation myocardial infarction (S DANIEL) 04/04/2024 Dyslipidemia, goal LDL below 70 04/04/2024 HTN, goal below 130/80 04/04/2024 Primary hypothyroidism 04/04/2024 Coronary artery disease invo lving [place] coronary artery of [place] heart without angina pectoris 08/13/2023 Diabetes mellitus [...] as of this encounter (statuses as of 01/26/2025) Resolved Problems Problem Noted Date Diagnosed Date [...] as of this encounter (statuses as of 01/26/2025) Immunizations Name Administration Dates Next Due COVID-19 mRNA, LNP-s, No Pre serve, 2-Dose Series (AdRoll) 04/18/2021,03/28/2021 COVID-19, LNP-s, No Preserve , Shailesh-sucrose, Ages 12+ (AdRoll) 10/21/2021 Covid-19, Mrna, Lnp-s, Pf, B ivalent, 30 Mcg, IM, 12 yrs and above (AdRoll) 09/10/2022 Pneumococcal Conjugate Vaccine, 20-valent (Prevn ar20) [...] Sign Reading Time Taken Comments Blood Pressure 110/70 01/26/2025 7:50 AM EST Pulse 97 01/26/2025 7:50 AM EST Temperature 35.7 °C (96.3 °F) 01/26/2025 7:50 AM ES T Respiratory Rate 16 01/26/2025 7:50 AM EST Oxygen Saturation 98% 01/26/2025 7:50 AM EST Inhaled Oxygen Concentration - - Weight 62.6 kg (138 lb 0.6 oz) 01/26/2025 7:50 A M EST Height - - Body Mass Index 28.36 01/19/2025 8:24 AM EST documented in this encounter Progress Notes * Neva Samayoa MD - 01/26/2025 8:05 AM EST Subjective Chief Complaint Patient presents with Re-Check HPI: Greg Gayle is a 59 year old female. Patient is unaccompanied. The following issues wereaddressed today: Patient presents today for follow-up. She states for the past few months she has felt fatigued and run down. She would like to have some updated labs done. Concerned about increased in last Hgb A1c to 6.3%. She is currently on Mounjaro 5mg and would like to discuss increasing her dose. Has been off of vitamin D supplement for 2 weeks. Follows with [facility] for osteoporosis and vitamin Ddeficiency. She is going to make an appointment with GI. Having some abdominal bloating and burping. She follows with them for irritable bowel syndrome. She takes Bentyl and hyoscyamine as needed and Linzess daily. She also reports a history of treated H. pylori. Follows with cardiology for CAD, history of inferior wall STEMI s/p PCI with [facility] in 2022. She reports that with her previous NM her main symptoms were shortness of breath and abdominal pain. Her hypertension is well-controlled. Going to [facility] in April and will be there for 3 months. Will not be able to take Mounjaro with her while traveling. Review of Systems: See HPI Objective BP 110/70 | Pulse 97 | Temp 96.3 °F (35.7 °C) (Tympanic) | Resp 16 | Wt 138 lb 0.6 oz (62.6 kg) |LMP 11/02/2013 | SpO2 98% | BMI 28.36 kg/m² | BSA 1.61 m² Wt Readings from Last 3 Encounters: 01/26/25 138 lb 0.6 oz (62.6 kg) 01/19/25 138 lb 4.8 oz (62.7 kg) 01/09/25 137 lb 1.3 oz (62.2 kg) BP Readings from Last 3 Encounters: 01/26/25 110/70 01/09/25 104/70 12/21/24 118/78 General: Well-appearing, no acute distress Cardiovascular: Regular rate and rhythm, no murmur Respiratory: Good respiratory effort, breath sounds equal and clear to auscultation bilaterally Neurological: Alert and oriented, no focal deficits noted Psychiatric: Appropriate mood and affect Assessment & Plan 1. Diabetes mellitus without complication (HCC) Discussed risks and benefits of increasing Mounjaro dose. We reviewed that the medication may be contributing to her abdominal symptoms and potentially fatigue, but she would like to trial 7.5mg. Will need new prior auth. New Rx sent to pharmacy. Will repeat Hgb A1c 03/21/25. - Mounjaro 7.5 MG/0.5ML Subcutaneous Solution Auto-injector (Tirzepatide); Inject 7.5 mg under the skin once a week. Dispense: 2 mL; Refill: 11 - HEMOGLOBIN A1C; Future 2. Dyslipidemia, goal LDL below 70 Well-controlled. Continue atorvastatin 80mg daily. Will update lipids today. - LIPID PANEL WITH DIRECT LDL IF TG IS HIGH; Future 3. HTN, goal below 130/80 Well-controlled. Continue losartan 25mg, metoprolol 12.5mg. - CBC WITH WBC DIFFERENTIAL; Future - COMPREHENSIVE METABOLIC PANEL; Future 4. Coronary artery disease involving [place] coronary artery of [place] heart without angina pectoris 5. History of ST elevation myocardial infarction (STEMI) EKG obtained today, normal sinus rhythm without acute changes or significant changes from 2023 EKG.Continue ASA 81mg, atorvastatin 80mg, metoprolol 12.5mg. Follow-up with cardiology as scheduled. - EKG 6. Primary hypothyroidism Update TSH today. Patient is on [place] Thyroid 30mg BID through endocrinology. - TSH WITH FREE T4 IF INDICATED; Future 7. Vitamin D insufficiency Update vitamin D level. - 25-HYDROXY VITAMIN D; Future 8. Senile osteoporosis Continue Prolia 60mg subcutaneous injection every 6 months and follow-up with rheumatology as scheduled. 9. Moderate episode of recurrent major depressive disorder (HCC) 10. PTSD (post-traumatic stress disorder) Stable. Continue current medications per psychiatry. 11. Adrenal mass (HCC) Follows with endocrinology. Patient requesting repeat cortisol level. - CORTISOL, LC/MS, SALIVA; Future 12. Irritable bowel syndrome with constipation Continue current medications. Patient to schedule with GI. 13. Malaise and fatigue Update labs. - CBC WITH WBC DIFFERENTIAL; Future - COMPREHENSIVE METABOLIC PANEL; Future - TSH WITH FREE T4 IF INDICATED; Future - VITAMIN B12; Future - 25-HYDROXY VITAMIN D; Future - IRON SCREEN, INCLUDING TIBC; Future - FERRITIN; Future Return in about 2 months (around 03/28/2025) for follow-up. This note was electronically signed by Neva Samayoa MD I spent a total of 40-54 minutes (exact time 44 mins) on the date of service in preparation, delivery, and documentation of the care provided to Greg Gayle excluding any time spent in the performance of separately billed services or time spent by another provider/QHP. documented in this encounter Procedure Notes * Constantine Mckinley MD - 01/26/2025 8:35 AM ESTAssociated Order(s): EKG REASON FOR STUDY: SOB, HISTORY OF NM CONCLUSIONS: Normal sinus rhythm Normal ECG No previous ECGs available Ventricular Rate: 80 Atrial Rate: 80 DC Interval: 154 QRS Duration: 84 QT/QTc: 378/435 ms P-R-T [place]: 48 : 10 : 38 degrees documented in this encounter Nursing Notes * Selma Dale LPN - 01/26/2025 7:48 AM EST Christianeene Valverde Nalini presents for 3 month recheck. Medications & HM reviewed. Discuss diabetes Feels run down, tired, bloated. Gets a little SOB at times when going up and down stairs. Would like to have labs done Abdomen has been bothersome for awhile. documented in this encounter Plan of Treatment Upcoming Encounters Date Type Department Care Team (Late st Contact Info) Description 03/29/2025 7:40 AM EDT Office Visit Family Practice [facility] [address] [facility] [place] [address] Neva Samayoa MD [address] [facility] [place] [address] 04/12/2025 10:30 AM EDT Nurse Only Rheumatology [facility] [address] [facility] [place] [phone] [place], Nurse Andreina [address] [place] [address] 04/18/2025 8:00 AM EDT Office Visit Cardiology, [facility] [address] [facility] [place] [address] Enedina Nogueira CRNP [address] [place] [address] [place] [address] Pending Results Name Type Priority Associated Diagnoses Date /Time LIPID PANEL WITH DIRECT LDL IF TG IS HIGH Lab Routine Dyslipidemia, goal LDL below 70 01/26/2025 8:49 AM EST TSH WITH FREE T4 IF INDICATED Lab Routine Primary hypothyroidism Malaise and fatigue 01/26/2025 8:49 AM EST VITAMIN B12 Lab Routine Malaise and fatigue 01/26/2025 8:49 AM EST 25-HYDROXY VITAMIN D Lab Routine Malaise and fatigue 01/26/2025 8:49 AM EST IRON SCREEN, INCLUDING TIBC Lab Routine Malaise and fatigue 01/26/2025 8:49 AM EST FERRITIN Lab Routine Malaise and fatigue 01/26/2025 8:49 AM EST Scheduled Orders Name Type Priority Associated Diagnoses Orde r Schedule LIPID PANEL WITH DIRECT LDL IF TG IS HIGH Lab Routine Dyslipidemia, goal LDL below 70 Expected: 01/26/2025 (Approximate), Expires: 01/26/2026 TSH WITH FREE T4 IF INDICATED Lab Routine Primary hypothyroidism Malaise and fatigue Expected: 01/26/2025 (Approximate), Expires: 01/26/2026 VITAMIN B12 Lab Routine Malaise and fatigue Expected: 01/26/2025 (Approximate), Expires: 01/26/2026 25-HYDROXY VITAMIN D Lab Routine Vitamin D insufficiency Malaise and fatigue Expected: 01/26/2025 (Approximate), Expires: 01/26/2026 IRON SCREEN, INCLUDING TIBC Lab Routine Malaise and fatigue Expected: 01/26/2025, Expires: 01/26/2026 FERRITIN Lab Routine Malaise and fatigue Expected: 01/26/2025, Expires: 01/26/2026 CORTISOL, LC/MS, SALIVA Lab Routine Adrenal mass (HCC) Expected: 01/26/2025, Expires: 01/26/2026 HEMOGLOBIN A1C Lab Routine Diabetes mellitus without complication (HCC) Expected: 03/21/2025, Expires: 01/26/2026 Scheduled Procedures Name Priority Associated Diagnoses Date/Ti me COLONOSCOPY FLEXIBLE PROXIMA L DIAGNOSTIC Recall Family history of colon cancer Health Maintenance Due Date Last Done Comments DISCUSS TOBACCO CESSATION (REFER TO SMARTSET #0624) 1965 HIV Screening 1978 HPV/Co-Test 1993 Cologuard [...] D LEVEL ONCE IN A LIFETIME-USE SMARTSET# 61318 Completed 08/11/2024, 04/04/2024, 07/27/2023, Additional history exists HPV (Gardasil) Vaccine Aged [...] Procedure Name Priority Date/Time Associated Diagnosis Comments DC ECG ROUTINE ECG W/LEAST 12 LDS I&R ONLY Routine 01/26/2025 8:35 AM EST Coronary artery disease involving [place] coronary artery of [place] heart without angina pectoris History of ST elevation myocardial infarction (STEMI) documented in this encounter Results * (ABNORMAL) COMPREHENSIVE METABOLIC PANEL (01/26/2025 8:49 AM EST) BUN 13 6 - 20 mg/dL 01/26/2025 10:06 AM [facility] [employer] [place] 56- CREATININE 0.8 0.5 - 1.0 mg/dL 01/26/2025 10:06 AM [facility] [employer] [place] 56- EGFR 83 >=60 mL/min 01/26/2025 10:06 AM [facility] [employer] [place] 56-02 Comment:eGFR is calculated b ased on the CKD-EPI 2020 equation. SODIUM 139 135 - 146 mmol/L 01/26/2025 10:06 AM [facility] 56- POTASSIUM 5.0 3.5 - 5.1 mmol/L 01/26/2025 10:06 AM [facility] 56-02 CHLORIDE 102 98 - 107 mmol/L 01/26/2025 10:06 AM [facility] 56- CO2 24 22 - 32 mmol/L 01/26/2025 10:06 AM [facility] [place] 56-02 ANION GAP 13 7 - 15 mmol/L 01/26/2025 10:06 AM [facility] [employer] [place] 56-02 GLUCOSE 109 70 - 120 mg/dL 01/26/2025 10:06 AM [facility] [employer] [place] 56- Albumin 4.9 3.8 - 5.0 g/dL 01/26/2025 10:06 AM [facility] [employer] [place] 56- AST 13 10 - 35 U/L 01/26/2025 10:06 AM EST [facility] 56-02 Alkaline Phosphatase 101 35 - 130 U/L 01/26/2025 10:06 AM EST [facility] 56- Bilirubin, Total 0.3 <=1.2 mg/dL 01/26/2025 10:06 AM EST [facility] 56- CALCIUM 10.6(H) 8.4 - 10.2 mg/dL 01/26/2025 10:06 AM [facility] 56- Protein 8.4(H) 6.0 - 8.3 g/dL 01/26/2025 10:06 AM EST [facility] 56-02 ALT 28 10 - 35 U/L 01/26/2025 10:06 AM [facility] 56-02 Blood Venous blood specimen / Unknown Venipuncture / Unknown 01/26/2025 8:49 AM EST 01/26/2025 8:49 AM EST Neva Samayoa MD LAB BLOOD ORDERABLES Final Resu lt Performing Organization Address [facility] Co de Phone Number [facility] [address] [place] [address] * EKG (01/26/2025 8:35 AM EST) 01/26/2025 8:35 AM EST Narrative Procedure Note Constantine Mckinley MD - 01/26/2025 8:35 AM EST REASON FOR STUDY: SOB, HISTORY OF NM CONCLUSIONS: Normal sinus rhythm Normal ECG No previous ECGs available Ventricular Rate: 80 Atrial Rate: 80 DC Interval: 154 QRS Duration: 84 QT/QTc: 378/435 ms P-R-T [place]: 48 : 10 : 38 degrees Neva Samayoa MD EKG Final Result Performing Organization Address City/[facility] Co de Phone Number [facility] documented in this encounter Visit Diagnoses Diagnosis Diabetes mellitus without complication (HCC)- Primary Type II or unspecified type diabetes mellitus without mention of complication, not stated as uncontrolled Dyslipidemia, goal LDL below 70 Other and unspecified hyperlipidemia HTN, goal below 130/80 Unspecified essential hypertension Coronary artery disease involving [place] coronary artery of [place] heart without angina pectoris History of ST elevation myocardial infarction (STEMI) Old myocardial infarction Primary hypothyroidism Unspecified hypothyroidism Vitamin D insufficiency Unspecified vitamin D deficiency Senile osteoporosis Moderate episode of recurrent major depressive disorder (HCC) PTSD (post-traumatic stress disorder) Posttraumatic stress disorder Adrenal mass (HCC) Unspecified disorder of adrenal glands Irritable bowel syndrome with constipation Irritable bowel syndrome Malaise and fatigue Other malaise and fatigue documented in this encounter Care Teams All Round Butcher Relationship Specialty Start Date End Date Neva Samayoa MD [address] [place] [address] PCP - General Family Medicine 11/30/24 documented as of this encounter"
--- OUTSIDE RECORDS SUMMARY | 2025-03-19 13:59 | External Medical Summary ---
Author Name Unknown Address Unknown Organization K01:[facility] [address] [facility] [place] [address] Laboratory Report Ordering Provider Test Date Status KALI [place] 01/26/2025 08:49:47 Final Observation Date Value Abnormality Reference (Units ) Status Triglyceride 01/26/2025 08:49:47 176 Above high normal <=174 (mg/dL) Final Triglyceride Reference Range s (mg/dL):
<150 Acceptable
150-174 Borderline high
175-499 High
>=500 Very high Cholesterol 01/26/2025 08:49:47 194 <200 (mg /dL) Final Total Cholesterol Reference Ranges (mg/dL):
<200 Desirable
200-239 Borderline high
>=240 High HDL 01/26/2025 08:49:47 58 >49 (mg/dL ) Final HDL Cholesterol Reference Ra nges (mg/dL):
>=60 High (Desirable)
<50 Low (Undesirable) For Females
<40 Low (Undesirable) For Males NON-HDL CHOLESTEROL 01/26/2025 08:49:47 136 <=159 (mg/dL) Final Non-HDL Cholesterol Referenc e Range (mg/dL):
<100 Target level for high risk ASCVD patient
<130 Optimal for general population
130-159 Near optimal for general population
160-189 Borderline High
190-219 High
>=220 Very High LDL, (calculated) 01/26/2025 08:49:47 101 <= 129 (mg/dL) Final LDL Cholesterol Reference Ra nges (mg/dL):
<70 Target level for high risk ASCVD patient
<100 Optimal for general population
100-129 Near optimal for general population
130-159 Borderline high
160-189 High
>=190 Very high Performing Location [facility] - [address] [facility] [address]
--- OUTSIDE RECORDS SUMMARY | 2025-03-19 13:59 | External Medical Summary | Summary of Care ---
Author Name Unknown Organization [facility] Address [address] [place] [address] Phone [phone] Care Team Providers Care Solid Propellant Processor Name Role Phone Neva Samayoa MD Primary Care Provider [phone] Reason for Visit * Reason Comments Re-Check Encounter Details Date Type Department Care Team (Latest Contact Info) Description 02/13/2025 3:20 PM EDT Office Visit Family Practice [facility] [address] [place] [address] Neva Samayoa MD [address] [place] [address] Abdominal discomfort*; Diabetes mellitus without complication (HCC); Irritable bowel syndrome with constipation; Primary hypothyroidism Allergies Active Allergy Reactions Criticality Noted Date [...] as of this encounter (statuses as of 02/14/2025) Medications Suvorexant 20 MG Oral Tablet Take [...] Active Additional Information Patient taking differently:650 mg XldhI1H PRN, Pain, Breakthrough, Fever >38C(100.5F), Reported on 02/13/2025 Metoprolol Succinate ER 25 MG Oral Tablet Extended Release 24 Hour (toPROL XL)Indications:His tory of ST elevation myocardial infarction (STEMI) Take 0.5 Tablets by mouth in the morning. 45 Tablet 3 01/06/20 24 Active Thyroid 30 MG Oral Tablet ([place] Thyroid)Indication s:Primary hypothyroidism one pill twice a day 180 Tablet 3 04/11/20 24 Active Losartan Potassium 25 MG Oral Tablet (Cozaar)Indication s:HTN, goal below 130/80 Take 0.5 Tablets by mouth in the morning. 45 Tablet 3 04/21/20 24 Active Vitamin D (Ergocalciferol) 1.25 MG (10990 UT) Oral Capsule (Drisdol)Indicatio ns:Senile osteoporosis Take [...] as of this encounter (statuses as of 02/14/2025) Active Problems Problem Noted Date Diagnosed Date History of ST elevation myocardial infarction (S DANIEL) 04/04/2024 Dyslipidemia, goal LDL below 70 04/04/2024 HTN, goal below 130/80 04/04/2024 Primary hypothyroidism 04/04/2024 Coronary artery disease invo lving [place] coronary artery of [place] heart without angina pectoris 08/13/2023 Diabetes mellitus [...] as of this encounter (statuses as of 02/14/2025) Resolved Problems Problem Noted Date Diagnosed Date [...] as of this encounter (statuses as of 02/14/2025) Immunizations Name Administration Dates Next Due COVID-19 mRNA, LNP-s, No Pre serve, 2-Dose Series (Visual [employer]) 04/18/2021,03/28/2021 COVID-19, LNP-s, No Preserve , Shailesh-sucrose, Ages 12+ (Pfizer) 10/21/2021 Covid-19, Mrna, Lnp-s, Pf, B ivalent, 30 Mcg, IM, 12 yrs and above ([employer]) 09/10/2022 Pneumococcal Conjugate Vaccine, 20-valent (Prevn ar20) [...] Sign Reading Time Taken Comments Blood Pressure 118/68 02/13/2025 3:16 PM EDT Pulse 60 02/13/2025 3:16 PM EDT Temperature 36.1 °C (97 °F) 02/13/2025 3:16 PM EDT Respiratory Rate 15 02/13/2025 3:16 PM EDT Oxygen Saturation 97% 02/13/2025 3:16 PM EDT Inhaled Oxygen Concentration - - Weight 61.7 kg (136 lb) 02/13/2025 3:16 PM EDT Height - - Body Mass Index 27.94 01/19/2025 8:24 AM EST documented in this encounter Progress Notes * Neva Samayoa MD - 02/13/2025 3:20 PM EDT Subjective Chief Complaint Patient presents with Re-Check HPI: Greg Gayle is a 59 year old female. Patient is unaccompanied. The following issues wereaddressed today: Patient presents today with c/o abdominal discomfort and bloating. Burping a lot. She is on Mounjaro for DM. Recently increased dose from 5mg to 7.5mg. Has done one of the 7.5mg injections. Has not tolerated Metformin and Jardiance in the past. Was previously on glipizide 5mg and tolerated well. She is scheduled to see gastroenterology on 02/15/25. She has a history of IBS-C and is on Linzess. Also noticing hair loss. Most recent TSH was normal. She stopped [place] Thyroid three days ago. In the past has seen Dr. Fontenot with endocrinology. At two different times was tried on levothhyroxine but caused weight gain, fatigue, and then palpitations when dose was increased. Switched back to[place] Thyroid. Per last endocrinology note it is unclear if she ever had hypothyroidism before starting on thyroid hormone. Review of Systems: See HPI Objective BP 118/68 | Pulse 60 | Temp 97 °F (36.1 °C) (Tympanic) | Resp 15 | Wt 136 lb (61.7 kg) | LMP 11/02/2013 | SpO2 97% | BMI 27.94 kg/m² | BSA 1.6 m² Wt Readings from Last 3 Encounters: 02/13/25 136 lb (61.7 kg) 01/26/25 138 lb 0.6 oz (62.6 kg) 01/19/25 138 lb 4.8 oz (62.7 kg) BP Readings from Last 3 Encounters: 02/13/25 118/68 01/26/25 110/70 01/09/25 104/70 General: Well-appearing, no acute distress Neurological: Alert and oriented, no focal deficits noted Psychiatric: Appropriate mood and affect Assessment & Plan 1. Abdominal discomfort Discussed that described symptoms are common side effect of Mounjaro and other similar GLP-1/GIP Genaro. She would like to finish her box of 7.5mg pens and see if her symptoms improve with time. If still having symptoms, we discussed decreasing or stopping Mounjaro and starting glipizide. 2. Diabetes mellitus without complication (HCC) Continue current medications as above. Repeat Hgb A1c in 4 weeks. 3. Irritable bowel syndrome with constipation Continue LinMalena gonzalesyl PRN. Follow-up with GI as scheduled. 4. Primary hypothyroidism Will trial off of [place] Thyroid, recheck TSH in 4-6 weeks. - TSH WITH FREE T4 IF INDICATED; Future Return for follow-up as scheduled or sooner as needed. This note was electronically signed by Neva Samayoa MD documented in this encounter Nursing Notes * Selma Dale LPN - 02/13/2025 3:14 PM EDT Patient presents in office today with C/O GI issues. Discuss upset stomach and fibroid medications. Discuss monjauro and if that may be the issue behind stomach upset documented in this encounter Plan of Treatment Upcoming Encounters Date Type Department Care Team (Late st Contact Info) Description 02/15/2025 11:00 AM EDT Office Visit Gastroenterology, [facility] [address] [place] [address] Connie Stephens CRNP [address] [place] [address] 04/12/2025 10:30 AM EDT Nurse Only Rheumatology [facility] [address] [place] [phone] [facility], Nurse Rheum [address] [address] 04/18/2025 8:00 AM EDT Office Visit Cardiology, [facility] [address] [place] [phone] Enedina Nogueira CRNP [address] [place] [address] Scheduled Orders Name Type Priority Associated Diagnoses Orde r Schedule TSH WITH FREE T4 IF INDICATED Lab Routine Primary hypothyroidism Expected: 03/21/2025 (Approximate), Expires: 02/13/2026 Scheduled Procedures Name Priority Associated Diagnoses Date/Ti me COLONOSCOPY FLEXIBLE PROXIMA L DIAGNOSTIC Recall Family history of colon cancer Health Maintenance Due Date Last Done Comments DISCUSS TOBACCO CESSATION (REFER TO SMARTSET #2324) 1965 HIV Screening 1978 HPV/Co-Test 1993 Cologuard [...] D LEVEL ONCE IN A LIFETIME-USE SMARTSET# [id number] Completed 01/26/2025, 08/11/2024, 04/04/2024, Additional history exists [...] as of this encounter Visit Diagnoses Diagnosis Abdominal discomfort- Primary Abdominal pain, unspecified site Diabetes mellitus without complication (HCC) Type II or unspecified type diabetes mellitus without mention of complication, not stated as uncontrolled Irritable bowel syndrome with constipation Irritable bowel syndrome Primary hypothyroidism Unspecified hypothyroidism documented in this encounter Care Teams Solid Propellant Processor Relationship Specialty Start Date End Date Neva Samayoa MD [address] [place] [address] PCP - General Family Medicine 11/30/24 documented as of this encounter"
--- OUTSIDE RECORDS SUMMARY | 2025-03-19 13:59 | External Medical Summary ---
Author Name Unknown Address Unknown Organization [id number]:LABORATORY [facility] [place] - [address] [place] [address] Laboratory Report Ordering Provider Test Date Status [place] 02/15/2025 11:43:21 Final Observation Date Value Abnormality Reference (Units ) Status Vitamin B12 02/15/2025 11:43:21 627 170-8851 (pg/mL) Final Performing Location LABORATORY [facility] - [address] [place] [address]
--- OUTSIDE RECORDS SUMMARY | 2025-03-19 13:59 | External Medical Summary ---
Author Name Unknown Address Unknown Organization [id number][facility] [address] [place] [address] Laboratory Report Ordering Provider Test Date Status [place] 02/15/2025 11:43:21 Final Observation Date Value Abnormality Reference (Units ) Status WBC, Total 02/15/2025 11:43:21 13.27 Above high normal 4 .00-10.80 (K/uL) Final RBC 02/15/2025 11:43:21 5.40 3.85-5.15 (M/uL) Final Hemoglobin 02/15/2025 11:43:21 15.3 12.0-15.3 (g/dL) Final HCT 02/15/2025 11:43:21 46.3 Above high normal 36 .0-45.2 (%) Final MCV 02/15/2025 11:43:21 85.7 81.5-97.5 (fL) Final MCH 02/15/2025 11:43:21 28.3 27.0-34.0 (pg) Final MCHC 02/15/2025 11:43:21 33.0 32.0-36.0 (g/dL) Final RDW 02/15/2025 11:43:21 14.9 11.5-15.5 (%) Final Platelets 02/15/2025 11:43:21 336 140-400 (K /uL) Final MPV 02/15/2025 11:43:21 9.4 6.6-11.1 ( fL) Final Performing Location LABORATORY [place] [facility] - [address] [place] [address]
--- OUTSIDE RECORDS SUMMARY | 2025-03-19 13:59 | External Medical Summary ---
Author Name Unknown Address Unknown Organization K01:[facility]ATORY [facility] - [address] [place] [address] Laboratory Report Ordering Provider Test Date Status KALI CHASE 02/15/2025 11:43:21 Final Observation Date Value Abnormality Reference (Units ) Status CRP, low-sensitivity 02/15/2025 11:43:21 <3 <=5 (mg/L) Final Performing Location [facility] - [address] [place] [address]
--- OUTSIDE RECORDS SUMMARY | 2025-03-19 13:59 | External Medical Summary | Summary of Care ---
Author Name Unknown Organization [facility] Address [address] [place] [address] Phone [phone] Care Team Providers Care Chief Dispatcher Service Name Role Phone Neva Samayoa MD Primary Care Provider [phone] Reason for Visit * Reason Comments Outpatient Testing Encounter Details Date Type Department Care Team (Late st Contact Info) Description 02/06/2025 12:20 PM EDT Laboratory Laboratory [facility] [address] [place] [phone] [facility] [address] [facility] [address] [facility] [address] Adrenal mass (HCC) Allergies Active Allergy Reactions Criticality Noted Date [...] as of this encounter (statuses as of 02/06/2025) Medications Suvorexant 20 MG Oral Tablet Take [...] Active Additional Information Patient taking differently:650 mg BvhxH9I PRN, Pain, Breakthrough, Fever >38C(100.5F), Reported on 01/26/2025 Metoprolol Succinate ER 25 MG Oral Tablet Extended Release 24 Hour (toPROL XL)Indications:His tory of ST elevation myocardial infarction (STEMI) Take 0.5 Tablets by mouth in the morning. 45 Tablet 3 01/06/20 24 Active Thyroid 30 MG Oral Tablet ([place] Thyroid)Indication s:Primary hypothyroidism one pill twice a day 180 Tablet 3 04/11/20 24 Active Losartan Potassium 25 MG Oral Tablet (Cozaar)Indication s:HTN, goal below 130/80 Take 0.5 Tablets by mouth in the morning. 45 Tablet 3 04/21/20 24 Active Vitamin D (Ergocalciferol) 1.25 MG (93307 UT) Oral Capsule (Drisdol)Indicatio ns:Senile osteoporosis Take [...] as of this encounter (statuses as of 02/06/2025) Active Problems Problem Noted Date Diagnosed Date History of ST elevation myocardial infarction (S DANIEL) 04/04/2024 Dyslipidemia, goal LDL below 70 04/04/2024 HTN, goal below 130/80 04/04/2024 Primary hypothyroidism 04/04/2024 Coronary artery disease invo lving [place] coronary artery of [place] heart without angina pectoris 08/13/2023 Diabetes mellitus [...] as of this encounter (statuses as of 02/06/2025) Resolved Problems Problem Noted Date Diagnosed Date [...] as of this encounter (statuses as of 02/06/2025) Immunizations Name Administration Dates Next Due COVID-19 mRNA, LNP-s, No Pre serve, 2-Dose Series (1EQ) 04/18/2021,03/28/2021 COVID-19, LNP-s, No Preserve , Shailesh-sucrose, Ages 12+ (Pfizer) 10/21/2021 Covid-19, Mrna, Lnp-s, Pf, B ivalent, 30 Mcg, IM, 12 yrs and above (1EQ) 09/10/2022 Pneumococcal Conjugate Vaccine, 20-valent (Prevn ar20) [...] 7:40 AM EDT Office Visit Family Practice [facility] [address] [facility] [place] [address] Neva Samayoa MD [address] [facility] [place] [address] 04/12/2025 10:30 AM EDT Nurse Only [facility] [phone] [place] [facility] [address] [place] [address] 04/18/2025 8:00 AM EDT Office Visit Cardiology, [facility] [address] [facility] [place] [address] Enedina Nogueira CRNP [address] [place], [place] [phone] Pending Results Name Type Priority Associated Diagnoses Date /Time CORTISOL, LC/MS, SALIVA Lab Routine Adrenal mass (HCC) 02/06/2025 12:21 PM EDT Scheduled Procedures Name Priority Associated Diagnoses Date/Ti me COLONOSCOPY FLEXIBLE PROXIMA L DIAGNOSTIC Recall Family history of colon cancer Health Maintenance Due Date Last Done Comments DISCUSS TOBACCO CESSATION (REFER TO SMARTSET #5431) 1965 HIV Screening 1978 HPV/Co-Test 1993 Cologuard [...] D LEVEL ONCE IN A LIFETIME-USE SMARTSET# [id number] Completed 01/26/2025, 08/11/2024, 04/04/2024, Additional history exists [...] as of this encounter Visit Diagnoses Diagnosis Adrenal mass (HCC) Unspecified disorder of adrenal glands documented in this encounter Care Teams Chief Dispatcher Service Relationship Specialty Start Date End Date Neva Samayoa MD [address] [place] [address] PCP - General Family Medicine 11/30/24 documented as of this encounter
--- OUTSIDE RECORDS SUMMARY | 2025-03-19 13:59 | External Medical Summary | Summary of Care ---
Author Name Unknown Organization [facility] Address [address] [place] [address] Phone [phone] Care Team Providers Care Painter Decorator Name Role Phone Neva Samayoa MD Primary Care Provider Reason for Visit * Reason Comments Follow Up Follow up IBS-C. Doi ng well on Linzess. Moving bowels daily. Pt c/o abd/epi discomfort and pain with increased belching. Fm hx gastric cancer. Scopes were on hold with last provider due to having a heart attack 07/28/23. Hx H pylori. Encounter Details Date Type Department Care Team (Latest Contact Info) Description 02/15/2025 11:00 AM EDT Office Visit Gastroenterology, [facility] [address] [place] [address] Connie Stephens CRNP [address] [place] [address] Gastroesophageal reflux disease, unspecified whether esophagitis present*; Irritable bowel syndrome with constipation Allergies Active [...] Active Additional Information Patient taking differently:650 mg [id number] PRN, Pain, Breakthrough, Fever >38C(100.5F), Reported on 02/13/2025 Metoprolol Succinate ER 25 MG Oral Tablet Extended Release 24 Hour (toPROL XL)Indications:His tory of ST elevation myocardial infarction (STEMI) Take 0.5 Tablets by mouth in the morning. 45 Tablet 3 01/06/20 24 Active Thyroid 30 MG Oral Tablet ([place] Thyroid)Indication s:Primary hypothyroidism one pill twice a day 180 Tablet 3 04/11/20 24 Active Losartan Potassium 25 MG Oral Tablet (Cozaar)Indication s:HTN, goal below 130/80 Take 0.5 Tablets by mouth in the morning. 45 Tablet 3 04/21/20 24 Active Vitamin D (Ergocalciferol) 1.25 MG (15688 UT) Oral Capsule (Drisdol)Indicatio ns:Senile osteoporosis Take [...] hypothyroidism 04/04/2024 Coronary artery disease invo lving nikolski coronary artery of nikolski heart without angina pectoris 08/13/2023 Diabetes mellitus [...] 30 Mcg, IM, 12 yrs and above ([employer]) 09/10/2022 Pneumococcal Conjugate Vaccine, 20-valent (Prevn ar20) [...] Sign Reading Time Taken Comments Blood Pressure 122/66 02/15/2025 10:52 AM EDT Pulse - - Temperature 36.9 °C (98.5 °F) 02/15/2025 10:52 AM E DT Respiratory Rate - - Oxygen Saturation - - Inhaled Oxygen Concentration - - Weight 61.7 kg (136 lb) 02/15/2025 10:52 AM EDT Height - - Body Mass Index 27.94 01/19/2025 8:24 AM EST documented in this encounter Progress Notes * Connie Stephens CRNP - 02/15/2025 11:00 AM EDT Gastroenterology Outpatient Visit 02/15/2025 Referring physician:Neva Samayoa MD PCP: Neva Samayoa MD Past medical history: Irritable bowel syndrome-constipation Narcotic bowel off narcotics just with persistent constipation, on Linzess GERD History of H pylori, approximately 20 years ago History of remote cholecystectomy CAD, hx of inferior wall STEMI complicated by intermittent third-degree AV block, 07/28/2023 Status post emergent cardiac catheterization found to have an acute thrombotic occlusion of the ostial RCA status post PCI with x1 TOMMIE. Post procedure, third- degree heart block resolved. Postop course complicated by pseudoaneurysm of the right femoral artery access site, underwent ultrasound-guided thrombin injection CC: Abdominal discomfort and bloating HPI: Very pleasant 59-year-old female presents today to the Gastroenterology office for an acute appointment. Patient carries a history of irritable bowel syndrome- constipation in his maintained on Linzess and as needed Bentyl. Referred back by her PCP due to concerns regarding abdominal discomfort and bloating. Abdominal discomfort primarily in the right upper quadrant and epigastric region, tender to palpation. Notes worsening bloating in this location also. She did have a cholecystectomy greater than 20 years ago. No nausea or vomiting. No indigestion, questionable reflux with a sulfur taste in her mouth occasionally. No dysphagia or odynophagia, no cough, hematochezia, melena, or hemoptysis. No change in bowel habits--has a soft formed bowel movement daily with the use of Linzess. Had a CBC performed showing a mild elevation in white cell count. No recent illnesses, denies any fevers, does occasionally feel chills which she attributes to “hot flashes”. She is also on Mounjaro and dose was recently increased from 5 mg to 7.5 mg, however these symptomsstarted prior. She is planning on switching to glipizide in April prior to traveling. She will be leaving for [facility] 04/25/2025 and will return 07/11/2025. Previous GI workup: Colonoscopy: 05/2021-- The examined portion of the ileum was normal.Diverticulosis in the sigmoid colon.Internal hemorrhoids. The examination was otherwise normal on direct and retroflexion views. No specimens collected. 06/10/18: The entire examined colon is normal to the terminal ileum, with retroflexed views of the ascending colon and rectum. No specimens collected EGD: 07/2021--Z-line irregular, normal stomach. Normal duodenum. EGD/EUS 12/26/2018: Normal esophagus.Z-line regular, 35 cm from the incisors. Gastritis. Biopsied.Duodenitis. Biopsied. Normal second portion of the duodenum and third portion of the duodenum. Normalampulla. Normal left lobe of the liver. There was mild dilation in the common bile duct which measured up to 10 mm. No stones, stricture of mass was seen. Normal pancreas.19 mm left adenal gland, likely represents and adenoma(would defer to PCM for further evaluation).Evidence of a cholecystectomy 10/21/2017: Normal upper third of esophagus, middle third of esophagus and lower third of esophagus. Z-line regular, 33 cm from the incisors. Biopsied. Small sliding hiatal hernia. Erythematous mucosa in the stomach. Biopsied. Normal examined duodenum. Biopsied CTAP: 04/2021-- 1. Lobulated low-density thickening of the left adrenal gland with 2.6 cm that is been previously described as adenomatous thickening on prior MRI. 2 cm low-density right adrenal mass. 2. Moderate chronic compression deformity of L2 with vertebral cement age indeterminate but likely comprised compression deformities of L4 and L5. Prominent Schmorl's node at T10. 3. No definite evidence of acute abdominal or pelvic pathology. MRCP: 04/2021-- Biliary ductal dilatation up to 13 mm likely reservoir effect status post cholecystectomy.No obstructing stone or apparent lesion. Correlate with nonobstructive LFTs. If there is clinical concern for obstruction, consider EUS. Hepatic cysts and hemangioma as detailed above. Age-indeterminate compression deformity of L2 Abdominal ultrasound: 09/10/2023--mild hepatic steatosis, hepatic hemangioma. Cholecystectomy. Right super originally indigestion, compatible with known adrenal adenoma GES: 05/2021--hyperactive gastric transit Family Hx: Father and paternal uncle -- stomach cancer Mom-- gallbladder disease, ulcerative colitis Current Outpatient Medications Medication Sig Dispense Refill Suvorexant 20 MG Oral Tablet Take 1 Tab by mouth at bedtime. busPIRone (BUSPAR) 15 MG Tablet Take 1 Tablet by mouth in the morning and 1 Tablet at noon and 1 Tablet before bedtime. LORazepam 1 MG Oral Tablet (Ativan) TAKE 1/2 TABLET BY MOUTH 4 TIMES A DAY NEEDED FOR ANXIETY Hyoscyamine Sulfate 0.125 MG Sublingual Tablet Sublingual (Levsin) DISSOLVE ONE TABLET UNDER THE TONGUE 4 TIMES DAILY NEEDED FOR ABDOMINAL PAIN IF UNABLE TO TOLERATE BENTYL. 360 Tablet 3 Dicyclomine HCl 20 MG Oral Tablet (Bentyl) Take 1 Tablet by mouth as needed (abdominal cramping). 270 Tablet 1 QUEtiapine Fumarate 300 MG Oral Tablet (SEROquel) Take 1 Tablet by mouth at bedtime. Metoprolol Succinate ER 25 MG Oral Tablet Extended Release 24 Hour (toPROL XL) Take 0.5 Tablets by mouth in the morning. 45 Tablet 3 Thyroid 30 MG Oral Tablet ([place] Thyroid) one pill twice a day 180 Tablet 3 Losartan Potassium 25 MG Oral Tablet (Cozaar) Take 0.5 Tablets by mouth in the morning. 45 Tablet 3 Vitamin D (Ergocalciferol) 1.25 MG (84247 UT) Oral Capsule (Drisdol) Take 1 Capsule by mouth once aweek. 12 Capsule 3 Cetirizine HCl 10 MG Oral Tablet (ZyrTEC) Take 1 Tablet by mouth in the morning. 90 Tablet 3 Omeprazole 40 MG Oral Capsule Delayed Release (PriLOSEC) TAKE 1 CAPSULE BY MOUTH EVERY MORNING 90 Capsule 2 Aspirin Low Dose 81 MG Oral Tablet Delayed Release (aspirin enteric coated) TAKE 1 TABLET BY MOUTH EVERY DAY IN THE MORNING 90 Tablet 3 Linzess 290 MCG Oral Capsule (linaCLOtide) TAKE 1 CAPSULE BY MOUTH EVERY MORNING 90 Capsule 3 Atorvastatin Calcium 80 MG Oral Tablet (Lipitor) TAKE 1 TABLET BY MOUTH EVERY DAY IN THE MORNING 90Tablet 1 Mounjaro 7.5 MG/0.5ML Subcutaneous Solution Auto-injector (Tirzepatide) Inject 7.5 mg under the skin once a week. 2 mL 11 Famotidine 20 MG Oral Tablet (Pepcid) Take 1 Tablet by mouth at bedtime. 30 Tablet 2 Glucose Blood In Vitro Strip Use to check blood sugars daily while fasting E11.9 300 Strip 11 Acetaminophen ER 650 MG Oral Tablet Extended Release (Tylenol 8 Hour) Take 1 Tablet by mouth every 6 hours. (Patient taking differently: Take 1 Tablet by mouth every 8 hours as needed for Pain, Breakthrough or Fever >38C(100.5F).) Hydrocortisone 2.5 % External Cream Apply topically to affected areas on hands twice daily 30 g 0 No current facility-administered medications for this visit. Past Medical History: Diagnosis Date Adrenal mass (HCC) 02/11/2022 Compression fracture of L2 (HCC) 11/22/2011 Compression fracture of L4 lumbar vertebra 10/22/2014 Coronary artery disease involving nikolski coronary artery of nikolski heart without angina pectoris 08/13/2023 GERD (gastroesophageal reflux disease) 08/22/2000 H. pylori infection 01/19/2011 prescribed double abx and ppi 01/26/11 Hypertension INFORMATION hx of duodenal ulcer, villous atrophy Irritable bowel syndrome 09/24/2003 Osteoporosis Radiculopathy Senile osteoporosis 07/29/2017 Past Surgical History: Procedure Laterality Date BREAST BIOPSY Left benign DELIVERY 1987 & 1993 Delivery Only COLONOSCOPY, DIAGNOSTIC (RECTUM) 01/19/2011 wnl repeat in 5 yrs COLONOSCOPY, DIAGNOSTIC (RECTUM) 06/10/2016 normal, repeat 5 yrs/COLONOSCOPY FLEXIBLE PROXIMAL DIAGNOSTIC performed by Lyndon Luciano MD at ENDOSCOPY [facility] COLONOSCOPY, DIAGNOSTIC (RECTUM) 06/19/2021 diverticulosis, repeat 5 yrs / COLONOSCOPY FLEXIBLE PROXIMAL DIAGNOSTIC performed by Oren Ryder MD at ENDOSCOPY [facility] EGD, FLEXIBLE, DIAGNOSTIC 10/21/2017 + H pylori, hiatal hernia/ESOPHAGOGASTRODUODENOSCOPY (EGD), FLEXIBLE, TRANSORAL, DIAGNOSTIC performed by Lyndon Luciano MD at ENDOSCOPY [facility] EGD, FLEXIBLE, DIAGNOSTIC 06/20/2018 + H pylori, gastritis, duodenitis/ESOPHAGOGASTRODUODENOSCOPY (EGD), FLEXIBLE, TRANSORAL, DIAGNOSTICperformed by Lyndon Luciano MD at [facility] EGD, FLEXIBLE, DIAGNOSTIC 08/21/2021 biopsies show inflammation end of esophagus consistent with acid reflux/ESOPHAGOGASTRODUODENOSCOPY (EGD), FLEXIBLE, TRANSORAL, DIAGNOSTIC performed by Oren Ryder MD at [facility] EGD, W/ENDOSCOPIC US 11/25/2018 gastritis, duodenitis/ESOPHAGOGASTRODUODENOSCOPY (EGD), FLEXIBLE, TRANSORAL, ENDOSCOPIC ULTRASOUND performed by Félix Diaz DO at [facility] INFORMATION 12/06/2000 duodenum biopsy-benign INFORMATION Left 12/25/2016 12/25/2016 excision of sebaceous cyst left breast - office procedure - DR. Jesus Rainey L-/S-SPINE PARAVERTEBRAL FACET INJ,1 LEVEL 05/18/2016 L-/S-SPINE PARAVERTEBRAL FACET INJ, 1 LEVEL performed by Horacio Moralez DO at [facility] L-/S-SPINE PARAVERTEBRAL FACET INJ,1 LEVEL 06/02/2016 L-/S-SPINE PARAVERTEBRAL FACET INJ, 1 LEVEL performed by Horacio Moralez DO at [facility] L-/S-SPINE PARAVERTEBRAL FACET INJ,1 LEVEL 09/23/2017 L-/S-SPINE PARAVERTEBRAL FACET INJ, 1 LEVEL performed by Horacio Darian Moralez DO at [facility] L-/S-SPINE PARAVERTEBRL FACET INJ,2 LEVELS 05/18/2016 L-/S-SPINE PARAVERTEBRAL FACET INJ, 2 LEVELS performed by Horacio Bennetts, DO at OR [facility] L-/S-SPINE PARAVERTEBRL FACET INJ,2 LEVELS 09/23/2017 L-/S-SPINE PARAVERTEBRAL FACET INJ, 2 LEVELS performed by Horacio Bennetts, DO at OR [facility] LAPAROSCOPY; CHOLECYSTECTOMY 04/29/2001 MISCELLANEOUS ORDER ([facility] ONLY) 12/2014 back procedure for compression fracture on L4 PAP SCREEN 09/15/2000 pap satisfactory for eval. dr. hung REMOVAL OF APPENDIX 1972 REMOVAL OF APPENDIX Appendectomy REPAIR EPIGASTRIC HERNIA 01/18/2006 epigatric hernia with mest by SMALL BOWEL ENDOSCOPY W/BX 01/19/2011 bxs, sm sliding hiatal hernia, +H.Pylori infection UPPER ENDOSCOPY GI REFERRAL OP 2000 Social History Tobacco Use Smoking status: Some Days Current packs/day: 0.25 Average packs/day: 0.3 packs/day for 36.0 years (9.0 ttl pk-yrs) Types: Cigarettes Smokeless tobacco: Never Vaping Use Vaping status: Never Used Substance Use Topics Alcohol use: No Drug use: No Review of patient's allergies indicates: Allergen Reactions Alendronate Stomach upset Clarithromycin Stomach pain Codeine IBS- stomach issues Other reaction(s): can't breathe Egg-Derived Products Hives Patient states she can eat products that contain small amounts of eggs, but not an egg alone. Ensure Nausea/vomiting Morphine chest pain Other reaction(s): can't breathe Review of Systems: See HPI for pertinent positives. All others negative, other than those noted in HPI. Physical Exam: BP 122/66 | Temp 36.9 °C (98.5 °F) | Wt 61.7 kg (136 lb) | LMP 11/02/2013 | BMI 27.94 kg/m² | BSA 1.6 m² GENERAL: Well developed and well nourished in no acute distress. SKIN: No rashes, ulcers, jaundice or spider angiomata. HEENT: Normocephalic, sclera clear, pharynx normal. NECK: Supple, no lymphadenopathy, no masses or thyroid enlargement. LUNGS: Clear to auscultation bilaterally, no respiratory distress or accessory muscles used. HEART: Regular rate & rhythm, no murmurs and no gallops. ABDOMEN: Normal bowel sounds, soft . Right upper quadrant and epigastric tenderness. no masses or hepatosplenomegaly. EXTREMITIES: No palmar erythema, no ankle edema, no skin discoloration, no clubbing, no cyanosis. NEURO: No lateralizing findings. Sensory/Motor grossly normal. Lab data/imaging study review: Reviewed via chart. Impression/Plan: This is a(n) 59 year old female who is being evaluated in the office for ongoing care/risk management for the below diagnoses. 1. Gastroesophageal reflux disease, unspecified whether esophagitis present (Primary) Increase in GERD and RUQ/epigastric discomfort. History of H pylori. Recommend dietary and lifestyle modifications: Avoid dietary triggers. Typical triggers include: carbonated beverages, spicy foods, fatty or friedfoods, excess coffee, dark chocolate and peppermint. Encouraged weight loss. Patient should try elevating the head of the bed some, refrain from lying flat after meals and avoid meals 2-3 hours before bedtime. Avoid tobacco/nicotine and alcohol. These substances reduce lower esophageal sphincter pressure. Discontinue/avoid all NSAID use Encouraged strict compliance with PPI therapy. Currently on omeprazole 40 mg daily, continue. Medication should be taking 30 minutes prior to 1st meal of the day. Add Pepcid 20 mg nightly Recommend repeat EGD--rule out eosinophilic esophagitis, H pylori, and Barretts. Consider reduction versus discontinuation of Mounjaro as GLP-1 can worsen reflux symptoms Abdominal ultrasound ordered Labs today 2. Irritable bowel syndrome with constipation Irritable bowel syndrome with constipation well controlled on current dose of Linzess. Continue Linzess 290 mcg daily The patient agrees to the above plan and will call with additional questions or concerns. ER with all emergencies advised. Follow-up: Return in about 6 weeks (around 03/29/2025). | Check-out note: -Abd US -EGD (pt leaving country in April, needs prior)-- follow up after scope -Labs today I spent a total of 30-39 minutes (exact time 30 mins) on the date of service in preparation, delivery, and documentation of the care provided to Greg Gayle excluding any time spent in the performance of separately billed services or time spent by another provider/QHP. JENNIFER [facility] Gastroenterology, [facility] This chart was completed in part utilizing [employer] Speech Voice Recognition Software. Grammatical errors, random word insertions, prounoun errors, and incomplete sentences are an occasional consequence of this system due to software limitations, ambient noise, and hardware issues. Any formal questions or concerns about the content, text, or information contained within the body of this dictation should be directly addressed to the provider for clarification. documented in this encounter Nursing Notes * Samira Piedra CMA - 02/15/2025 10:52 AM EDT Chief Complaint Patient presents with Follow Up Follow up IBS-C. Doing well on Linzess. Moving bowels daily. Pt c/o abd/epi discomfort and pain with increased belching. Fm hx gastric cancer. Scopes were on hold with last provider due to having a heart attack 07/28/23. Hx H pylori. documented in this encounter Plan of Treatment Upcoming Encounters Date Type Department Care Team (Latest Contact Info) Description 02/22/2025 7:45 AM EDT Imaging Radiology [facility] [address] [place] [phone] 03/05/2025 11:45 AM EDT Hospital En[facility] Room [facility] [address] [place] [phone] Connie Gonzalez DO [address] [place] [address] 03/05/2025 11:45 AM EDT - 03/05/2025 12:15 PM EDT Surgery ENDO [facility], Endoscopy Room [facility] [address] [place] [phone] Connie Gonzalez DO [address] [place] [address] ESOPHAGOGASTRODUODENOSCOPY (EGD), FLEXIBLE, TRANSORAL, DIAGNOSTIC 04/12/2025 10:30 AM EDT Nurse Only [facility] [address] [place] [id number] Taz, Nurse Rheum Misael [address] [facility] [place] [address] 04/18/2025 8:00 AM EDT Office Visit [facility], [facility] [address] [place] [phone] Enedina Nogueira CRNP [address] [facility] [place] [address] 07/25/2025 11:00 AM EDT Office Visit [facility]olog y, [facility] [address] [place] [phone] Connie Stephens CRNP [address] [place] [address] Pending Results Name Type Priority Associated Diagnoses Date /Time MAGNESIUM Lab Routine Gastroesophageal reflux disease, unspecified whether esophagitis present Irritable bowel syndrome with constipation 02/15/2025 11:43 AM EDT VITAMIN B12 Lab Routine Gastroesophageal reflux disease, unspecified whether esophagitis present Irritable bowel syndrome with constipation 02/15/2025 11:43 AM EDT Scheduled Orders Name Type Priority Associated Diagnoses Orde r Schedule EGD, FLEXIBLE, DIAGNOSTIC Procedures Routine Gastroesophageal reflux disease, unspecified whether esophagitis present Irritable bowel syndrome with constipation Ordered: 02/15/2025 US ABDOMEN LIMITED Medical Imaging Routine Gastroesophageal reflux disease, unspecified whether esophagitis present Irritable bowel syndrome with constipation Expected: 02/15/2025, Expires: 03/18/2026 MAGNESIUM Lab Routine Gastroesophageal reflux disease, unspecified whether esophagitis present Irritable bowel syndrome with constipation Expected: 02/15/2025, Expires: 02/15/2026 VITAMIN B12 Lab Routine Gastroesophageal reflux disease, unspecified whether esophagitis present Irritable bowel syndrome with constipation Expected: 02/15/2025, Expires: 02/15/2026 Scheduled Procedures Name Priority Associated Diagnoses Date/Ti me ESOPHAGOGASTRODUODENOSCOPY ( EGD), FLEXIBLE, TRANSORAL, DIAGNOSTIC Gastroesophageal reflux disease, unspecified whether esophagitis present Irritable bowel syndrome with constipation 03/05/2025 11:45 AM EDT COLONOSCOPY FLEXIBLE PROXIMA L DIAGNOSTIC Recall Family history of colon cancer Health Maintenance Due Date Last Done Comments DISCUSS TOBACCO CESSATION (REFER TO SMARTSET #2320) 1963 HIV Screening 1978 HPV/Co-Test 1993 Cologuard [...] D LEVEL ONCE IN A LIFETIME-USE SMARTSET# 10639 Completed 01/26/2025, 08/11/2024, 04/04/2024, Additional history exists [...] as of this encounter Visit Diagnoses Diagnosis Gastroesophageal reflux disease, unspecified whether esophagitis present- Primary Irritable bowel syndrome with constipation Irritable bowel syndrome Gastroesophageal reflux disease, unspecified whether esophagitis present Irritable bowel syndrome with constipation Irritable bowel syndrome documented in this encounter Care Teams Painter Decorator Relationship Specialty Start Date End Date Neva Samayoa MD [address] [place] [address] PCP - General Family Medicine 11/30/24 documented as of this encounter"
--- OUTSIDE RECORDS SUMMARY | 2025-03-19 13:59 | External Medical Summary ---
Author Name Unknown Address Unknown Organization [id number][place] [place] [address] [place] [address] Laboratory Report Ordering Provider Test Date Status KALI CHASE 01/26/2025 08:49:47 Final Deficient: <20 ng/mL
Ins ufficient: 20-29 ng/mL
Recommended/Optimum:30-50 ng/mL

Vitamin D intoxication is rare. If suspicious of Vitamin D toxicity, evaluation of serum Calcium and PTH is recommended. Observation Date Value Abnormality Reference (Units ) Status 25-OH Vitamin D total 01/26/2025 08:49:47 30 >19 (ng/mL) Final Performing Location [facility] [place] [address] [place] [address]
--- OUTSIDE RECORDS SUMMARY | 2025-03-19 13:59 | External Medical Summary ---
Author Name Unknown Address Unknown Organization [id number]:[facility] [address] [place] [address] Laboratory Report Ordering Provider Test Date Status [place] 02/15/2025 11:43:21 Final Observation Date Value Abnormality Reference (Units ) Status Magnesium 02/15/2025 11:43:21 2.4 1.5-2.6 (m g/dL) Final Performing Location [facility] - [address] [place] [address]
--- OUTSIDE RECORDS SUMMARY | 2025-03-19 13:59 | External Medical Summary | Summary of Care ---
Author Name Unknown Organization [facility] Address [address] [place] [address] Phone [phone] Care Team Providers Care Retail Experience Specialist Name Role Phone Neva Samayoa MD Primary Care Provider [phone] Reason for Visit * Reason Comments Outpatient Testing Encounter Details Date Type Department Care Team (Late st Contact Info) Description 01/26/2025 8:50 AM EST Laboratory Laboratory [facility] [address] [place] [phone] [facility] [address] [facility] [address] HTN, goal below 130/80; Malaise and fatigue; Dyslipidemia, goal LDL below 70; Primary hypothyroidism Allergies Active Allergy Reactions Criticality [...] Active Additional Information Patient taking differently:650 mg [id number] PRN, Pain, Breakthrough, Fever >38C(100.5F), Reported on 01/26/2025 Metoprolol Succinate ER 25 MG Oral Tablet Extended Release 24 Hour (toPROL XL)Indications:His tory of ST elevation myocardial infarction (STEMI) Take 0.5 Tablets by mouth in the morning. 45 Tablet 3 01/06/20 24 Active Thyroid 30 MG Oral Tablet ([place] Thyroid)Indication s:Primary hypothyroidism one pill twice a day 180 Tablet 3 04/11/20 24 Active Losartan Potassium 25 MG Oral Tablet (Cozaar)Indication s:HTN, goal below 130/80 Take 0.5 Tablets by mouth in the morning. 45 Tablet 3 04/21/20 24 Active Vitamin D (Ergocalciferol) 1.25 MG (84201 UT) Oral Capsule (Drisdol)Indicatio ns:Senile osteoporosis Take [...] hypothyroidism 04/04/2024 Coronary artery disease invo lving [place] coronary artery of [place] heart without angina pectoris 08/13/2023 Diabetes mellitus [...] mRNA, LNP-s, No Pre serve, 2-Dose Series ([employer]) 04/18/2021,03/28/2021 COVID-19, LNP-s, No Preserve , Shailesh-sucrose, Ages 12+ (Pfizer) 10/21/2021 Covid-19, Mrna, Lnp-s, Pf, B ivalent, 30 Mcg, IM, 12 yrs and above ([employer]) 09/10/2022 Pneumococcal Conjugate Vaccine, 20-valent (Prevn ar20) [...] 7:40 AM EDT Office Visit Family Practice [facility] [address] [place] [address] Neva Samayoa MD [address] [facility] [place] [address] 04/12/2025 10:30 AM EDT Nurse Only Rheumatology [facility] [address] [place] [phone] [facility], Nurse Rheum [address] [place], [place] [address] 04/18/2025 8:00 AM EDT Office Visit Cardiology, [facility] [address] [place] [address] Enedina Nogueira, FISH INSPECTOR [address] [facility] [place], [place] [phone] Pending Results Name Type Priority Associated Diagnoses Date /Time COMPREHENSIVE METABOLIC PANEL Lab Routine HTN, goal below 130/80 Malaise and fatigue 01/26/2025 8:49 AM EST LIPID PANEL WITH DIRECT LDL IF TG [...] and fatigue 01/26/2025 8:49 AM EST Scheduled Procedures Name Priority Associated Diagnoses Date/Ti me COLONOSCOPY FLEXIBLE PROXIMA L DIAGNOSTIC Recall Family history of colon cancer Health Maintenance Due Date Last Done Comments DISCUSS TOBACCO CESSATION (REFER TO SMARTSET #0452) 1965 HIV Screening 1978 HPV/Co-Test 1993 Cologuard [...] exists Albumin/Creatinine Ratio 08/11/2025 08/11/2024, 03/24 GFR 08/11/2025 08/11/2024, 03/24, 02/07/2024, Additional history exists Colonoscopy 06/19/2026 06/19/2021, 05/23, 06/10/2016, Additional history exists Colorectal Cancer Screening 06/19/2026 DXA Scan 2026 2024, 07/23, 06/03/2020, Additional history exists RETIRED - COLONOSCOPY-EVERY 5 YRS AGES 18-100 Discontinued 06/19/2021, 06/19/2021, 06/10/2016, Additional history exists Pneumococcal Vaccine: 50+ Years Completed 12/23/2022, 03/19/2009 VITAMIN D LEVEL ONCE IN A LIFETIME-USE SMARTSET# [id number] Completed 08/11/2024, 04/04/2024, 07/27/2023, Additional history exists [...] Date/Time Associated Diagnosis Comments DIFFERENTIAL, AUTOMATED Routine 01/26/2025 8:49 AM EST HTN, goal below 130/80 Malaise and fatigue CBC Routine 01/26/2025 8:49 AM EST HTN, goal below 130/80 Malaise and fatigue CBC Routine 01/26/2025 8:49 AM EST HTN, goal below 130/80 Malaise and fatigue documented in this encounter Results * (ABNORMAL) DIFFERENTIAL, AUTOMATED (01/26/2025 8:49 AM EST) WBC 11.41(H) 4.00 - 10.80 K/uL 01/26/2025 8:59 AM EST [facility] 56-02 Neutrophils % 44.7 40.0 - 75.0 % 01/26/2025 8:59 AM EST [facility] 56-02 Lymphocytes % 46.3(H) 18.0 - 42.0 % 01/26/2025 8:59 AM EST [facility] 56-02 Monocytes % 6.6 1.0 - 11.0 % 01/26/2025 8:59 AM EST [facility] 56-02 Eosinophils % 2.3 0.0 - 6.0 % 01/26/2025 8:59 AM EST [facility] 56 Basophils % 0.1 0.0 - 2.0 % 01/26/2025 8:59 AM EST [facility] 56 Absolute Neutrophils 5.11 1.80 - 7.70 K/uL 01/26/2025 8:59 AM EST [facility] 56 Absolute Lymphocytes 5.28(H) 1.00 - 4.80 K/ul 01/26/2025 8:59 AM EST [facility] 56 Absolute Monocytes 0.75 0.00 - 1.10 K/uL 01/26/2025 8:59 AM EST [facility] 56 Absolute Eosinophils 0.26 0.00 - 0.70 K/uL 01/26/2025 8:59 AM [facility] Absolute Basophils 0.01 0.00 - 0.20 K/uL 01/26/2025 8:59 AM [facility] Blood Venous blood specimen / Unknown Venipuncture / Unknown 01/26/2025 8:49 AM EST 01/26/2025 8:49 AM EST us Neva Samayoa MD LAB BLOOD ORDERABLES Final Resu lt [facility] [address] [place] [address] * (ABNORMAL) CBC (01/26/2025 8:49 AM EST) WBC 11.41(H) 4.00 - 10.80 K/uL 01/26/2025 8:59 AM [facility] RBC 5.50 3.85 - 5.15 M/uL 01/26/2025 8:59 AM [facility] HGB 15.3 12.0 - 15.3 g/dL 01/26/2025 8:59 AM [facility] HCT 46.8(H) 36.0 - 45.2 % 01/26/2025 8:59 AM [facility] MCV 85.1 81.5 - 97.5 fL 01/26/2025 8:59 AM [facility] MCH 27.8 27.0 - 34.0 pg 01/26/2025 8:59 AM EST [facility] MCHC 32.7 32.0 - 36.0 g/dL 01/26/2025 8:59 AM EST [facility] RDW 14.9 11.5 - 15.5 % 01/26/2025 8:59 AM [facility] PLT 325 140 - 400 K/uL 01/26/2025 8:59 AM [facility] MPV 9.5 6.6 - 11.1 fL 01/26/2025 8:59 AM [facility] Blood Venous blood specimen / Unknown Venipuncture / Unknown 01/26/2025 8:49 AM EST 01/26/2025 8:49 AM EST us Neva Samayoa MD LAB BLOOD ORDERABLES Final Resu lt [facility] [address] documented in this encounter Visit Diagnoses Diagnosis HTN, goal below 130/80 Unspecified essential hypertension Malaise and fatigue Other malaise and fatigue Dyslipidemia, goal LDL below 70 Other and unspecified hyperlipidemia Primary hypothyroidism Unspecified hypothyroidism documented in this encounter Care Teams Retail Experience Specialist Relationship Specialty Start Date End Date Neva Samayoa MD [address] [facility] [place] [facility] [place] [address] PCP - General Family Medicine 11/30/24 documented as of this encounter
--- OUTSIDE RECORDS SUMMARY | 2025-03-19 13:59 | External Medical Summary ---
Author Name Unknown Address Unknown Organization K01:[facility] - [address] [facility] [address] Laboratory Report Ordering Provider Test Date Status KALI CHASE 01/26/2025 08:49:47 Final Observation Date Value Abnormality Reference (Units ) Status TSH 01/26/2025 08:49:47 0.88 0.27-4.20 (uIU/mL) Final Performing Location [facility] - [address] [facility] [address]
--- OUTSIDE RECORDS SUMMARY | 2025-03-19 13:59 | External Medical Summary | Summary of Care ---
Author Name Unknown Organization [facility] Address [address] [place] [address] Phone [phone] Care Team Providers Care Underground Conduit Installer Name Role Phone Neva Samayoa MD Primary Care Provider [phone] Encounter Details Date Type Department Care Team (Late st Contact Info) Description 02/05/2025 Orders Only Laboratory [facility] [place] [address] [facility] [place] [facility] [place] [address] Neva Samayoa MD [address] [place] [place] [address] Leukocytosis, unspecified type*; Hypercalcemia Allergies Active Allergy Reactions Criticality Noted Date [...] as of this encounter (statuses as of 02/05/2025) Medications Suvorexant 20 MG Oral Tablet Take [...] Active Additional Information Patient taking differently:650 mg [id number] PRN, Pain, Breakthrough, Fever >38C(100.5F), Reported on 01/26/2025 Metoprolol Succinate ER 25 MG Oral Tablet Extended Release 24 Hour (toPROL XL)Indications:His tory of ST elevation myocardial infarction (STEMI) Take 0.5 Tablets by mouth in the morning. 45 Tablet 3 01/06/20 24 Active Thyroid 30 MG Oral Tablet ([place] Thyroid)Indication s:Primary hypothyroidism one pill twice a day 180 Tablet 3 04/11/20 24 Active Losartan Potassium 25 MG Oral Tablet (Cozaar)Indication s:HTN, goal below 130/80 Take 0.5 Tablets by mouth in the morning. 45 Tablet 3 04/21/20 24 Active Vitamin D (Ergocalciferol) 1.25 MG (20278 UT) Oral Capsule (Drisdol)Indicatio ns:Senile osteoporosis Take [...] as of this encounter (statuses as of 02/05/2025) Active Problems Problem Noted Date Diagnosed Date History of ST elevation myocardial infarction (S DANIEL) 04/04/2024 Dyslipidemia, goal LDL below 70 04/04/2024 HTN, goal below 130/80 04/04/2024 Primary hypothyroidism 04/04/2024 Coronary artery disease invo lving [place] coronary artery of [place] heart without angina pectoris 08/13/2023 Diabetes mellitus [...] as of this encounter (statuses as of 02/05/2025) Resolved Problems Problem Noted Date Diagnosed Date [...] as of this encounter (statuses as of 02/05/2025) Immunizations Name Administration Dates Next Due COVID-19 mRNA, LNP-s, No Pre serve, 2-Dose Series ([employer]) 04/18/2021,03/28/2021 COVID-19, LNP-s, No Preserve , Shailesh-sucrose, Ages 12+ (Pfizer) 10/21/2021 Covid-19, Mrna, Lnp-s, Pf, B ivalent, 30 Mcg, IM, 12 yrs and above ([employer]) 09/10/2022 Pneumococcal Conjugate Vaccine, 20-valent (Prevn ar20) [...] 7:40 AM EDT Office Visit Family Practice [facility] [address] [facility] [place] [address] Neva Samayoa MD [address] [facility] [place] [address] 04/12/2025 10:30 AM EDT Nurse Only Rheumatology [facility] [address] [place] [phone] [facility] Nurse [address] [place] [address] 04/18/2025 8:00 AM EDT Office Visit Cardiology, [facility] [address] [facility] [place] [address] Enedina Nogueira CRNP [address] [place], [place] [phone] Scheduled Orders Name Type Priority Associated Diagnoses Orde r Schedule CBC WITH WBC DIFFERENTIAL Lab Routine Leukocytosis, unspecified type Expected: 02/12/2025 (Approximate), Expires: 02/05/2026 CALCIUM, IONIZED Lab Routine Hypercalcemia Expected: 02/12/2025 (Approximate), Expires: 02/05/2026 Scheduled Procedures Name Priority Associated Diagnoses Date/Ti me COLONOSCOPY FLEXIBLE PROXIMA L DIAGNOSTIC Recall Family history of colon cancer Health Maintenance Due Date Last Done Comments DISCUSS TOBACCO CESSATION (REFER TO SMARTSET #4416) 1965 HIV Screening 1978 HPV/Co-Test 1993 Cologuard 2008 Fecal Occult Blood Test 2008 Sigmoidoscopy 2008 Cervical Cancer Screening 08/03/2019 Pap Smear 08/03/2019 08/03/2016, 07/23, 11/02/2012, Additional history exists Zoster Vaccines (2 of 2) 02/09/2020 12/15/2019 Mammogram 06/02/2022 06/02/2021, 04/23, 08/06/2017, Additional history exists DTap/Tdap Vaccines (2 - Td or Tdap) 09/29/2022 09/29/2012, 11/22/2003 COVID-19 Vaccine ( - season) 2024 09/10/2022, 10/21/2021, 04/18/2021, Additional [...] D LEVEL ONCE IN A LIFETIME-USE SMARTSET# [id number] Completed 01/26/2025, 08/11/2024, 04/04/2024, Additional history exists [...] as of this encounter Visit Diagnoses Diagnosis Leukocytosis, unspecified type- Primary Hypercalcemia documented in this encounter Care Teams Underground Conduit Installer Relationship Specialty Start Date End Date Neva Samayoa MD [address] [facility] [place] [address] PCP - General Family Medicine 11/30/24 documented as of this encounter
--- OUTSIDE RECORDS SUMMARY | 2025-03-19 13:59 | External Medical Summary ---
Author Name Unknown Address Unknown Organization : Laboratory Report Ordering Provider Test Date Status KALI CHASE 02/06/2025 12:21:06 Final Observation Date Value Abnormality Reference (Units ) Status CORTISOL, LC/MS, SALIVA 02/06/2025 12:21:06 0.19 (mcg/dL) Final 8-10 AM: 0.04-0.56 mcg/dL
noon-2 PM: < OR = 0.21 mcg/dL
4-6 PM: < OR = 0.15 mcg/dL
10 PM-1 AM: < OR = 0.09 mcg/dL
This test was developed and its analytical
performance characteristics have been determined
by [employer]. It has not been cleared or
approved by the FDA. This assay has been validated
pursuant to the CLIA regulations and is used for
clinical purposes.
Test performed by [email or web address]
[address],
[place] [address]

Regulatory Technician: Yarely Hoff MD,PHD,KASHIF
Test Reported by [facility],
[email or web address],
[address] [place], [place]
Stephan Bueno M.D., Ph.D., Director of Laboratories
, CLIA [id number] Performing Location
--- OUTSIDE RECORDS SUMMARY | 2025-03-19 13:59 | External Medical Summary | Summary of Care ---
Author Name Unknown Organization [facility] Address [address] [place] [address] Phone [phone] Care Team Providers Care Generating Plant Superintendent Name Role Phone Neva Samayoa MD Primary Care Provider [phone] Reason for Visit * Reason Onset Date Comments Health Maintenance 02/12/2025 Encounter Details Date Type Department Care Team (Late st Contact Info) Description 02/12/2025 Telephone Family Practice [facility] [address] [place] [address] Neva Samayoa MD [address] [place] [address] Health Maintenance Allergies Active Allergy Reactions Criticality Noted Date [...] as of this encounter (statuses as of 02/12/2025) Medications Suvorexant 20 MG Oral Tablet Take [...] Active Additional Information Patient taking differently:650 mg [id number] PRN, Pain, Breakthrough, Fever >38C(100.5F), Reported on 01/26/2025 Metoprolol Succinate ER 25 MG Oral Tablet Extended Release 24 Hour (toPROL XL)Indications:His tory of ST elevation myocardial infarction (STEMI) Take 0.5 Tablets by mouth in the morning. 45 Tablet 3 01/06/20 24 Active Thyroid 30 MG Oral Tablet ([place] Thyroid)Indication s:Primary hypothyroidism one pill twice a day 180 Tablet 3 04/11/20 24 Active Losartan Potassium 25 MG Oral Tablet (Cozaar)Indication s:HTN, goal below 130/80 Take 0.5 Tablets by mouth in the morning. 45 Tablet 3 04/21/20 24 Active Vitamin D (Ergocalciferol) 1.25 MG (14172 UT) Oral Capsule (Drisdol)Indicatio ns:Senile osteoporosis Take [...] as of this encounter (statuses as of 02/12/2025) Active Problems Problem Noted Date Diagnosed Date History of ST elevation myocardial infarction (S DANIEL) 04/04/2024 Dyslipidemia, goal LDL below 70 04/04/2024 HTN, goal below 130/80 04/04/2024 Primary hypothyroidism 04/04/2024 Coronary artery disease invo lving [place] coronary artery of [place] heart without angina pectoris 08/13/2023 Diabetes mellitus [...] as of this encounter (statuses as of 02/12/2025) Resolved Problems Problem Noted Date Diagnosed Date [...] as of this encounter (statuses as of 02/12/2025) Immunizations Name Administration Dates Next Due COVID-19 mRNA, LNP-s, No Pre serve, 2-Dose Series ([employer]) 04/18/2021,03/28/2021 COVID-19, LNP-s, No Preserve , Shailesh-sucrose, Ages 12+ (Pfizer) 10/21/2021 Covid-19, Mrna, Lnp-s, Pf, B ivalent, 30 Mcg, IM, 12 yrs and above ([employer]) 09/10/2022 Pneumococcal Conjugate Vaccine, 20-valent (Prevn ar20) [...] encounter Miscellaneous Notes * Telephone Encounter - Annie Danielle LPN - 02/12/2025 9:56 AM EDT Care Gaps Comprehensive Care Outreach Last Office/Telemedicine Visit: 01/26/2025 (in office), 05/08/2020 (telemedicine) Next Office Visit: 02/13/2025 Hemoglobin AIC Results: Lab Results Component Value Date/Time HEMOGLOBIN A1C - [facility] 6.3 (H) 12/21/2024 01:28 PM HEMOGLOBIN A1C - [facility] 5.9 (H) 08/11/2024 08:33 AM HEMOGLOBIN A1C - [facility] 6.4 (H) 04/04/2024 11:24 AM BP Readings from Last 1 Encounters: 01/26/25 110/70 Reviewed Health Maintenance below: Health Maintenance Topic Date Due DISCUSS TOBACCO CESSATION (REFER TO SMARTSET #3291) Never done HIV Screening Never done Cervical Cancer Screening 08/03/2019 Zoster Vaccines (2 of 2) 02/09/2020 Mammogram 06/02/2022 DTap/Tdap Vaccines (2 - Td or Tdap) 09/29/2022 COVID-19 Vaccine ( season) 2024 Depression Monitoring 12/17/2024 Diabetic Eye Exam 04/04/2025 Diabetic Foot Exam 04/04/2025 HbA1c 06/20/2025 Pcp tomorrow Care Gap Outreach Action Taken: Outreach not indicated documented in this encounter Plan of Treatment Upcoming Encounters Date Type Department Care Team (Late st Contact Info) Description 02/13/2025 3:20 PM EDT Office Visit Family Practice [facility] [address] [place] [address] Neva Samayoa MD [address] [place] [address] 02/15/2025 11:00 AM EDT Office Visit Gastroenterology, [facility] [address] [place] [address] Connie Stephens CRNP [address] [place] [address] 04/12/2025 10:30 AM EDT Nurse Only Rheumatology [facility] [address] [place] [phone] [facility], Nurse [place] [address] [address] 04/18/2025 8:00 AM EDT Office Visit Cardiology, [facility] [address] [place] [phone] Enedina Nogueira CRNP [address] [place] [address] Scheduled Procedures Name Priority Associated Diagnoses Date/Ti me COLONOSCOPY FLEXIBLE PROXIMA L DIAGNOSTIC Recall Family history of colon cancer Health Maintenance Due Date Last Done Comments DISCUSS TOBACCO CESSATION (REFER TO SMARTSET #1119) 1965 HIV Screening 1978 HPV/Co-Test 1993 Cologuard [...] D LEVEL ONCE IN A LIFETIME-USE SMARTSET# [id number] Completed 01/26/2025, 08/11/2024, 04/04/2024, Additional history exists [...] filedocumented as of this encounter Care Teams Generating Plant Superintendent Relationship Specialty Start Date End Date Neva Samayoa MD [address] [place] [address] PCP - General Family Medicine 11/30/24 documented as of this encounter
--- OUTSIDE RECORDS SUMMARY | 2025-03-19 14:00 | External Medical Summary | Summary of Care ---
Author Name Unknown Organization [facility] Address [address] [place] [address] Phone [phone] Care Team Providers Care Forestry Adviser Name Role Phone Neva Samayoa MD Primary Care Provider [phone] Reason for Visit * Reason Comments Acute Encounter Details Date Type Department Care Team (Late st Contact Info) Description 01/09/2025 9:00 AM EST Office Visit Family [facility] [address] [place] [address] Neva Samayoa MD [address] [place] [address] Viral upper respiratory infection*; Diabetes mellitus without complication (HCC); Coronary artery disease involving [place] coronary artery of [place] heart without angina pectoris; HTN, goal below 130/80; Atopic dermatitis, unspecified type Allergies Active Allergy Reactions Criticality Noted Date [...] as of this encounter (statuses as of 01/09/2025) Medications Suvorexant 20 MG Oral Tablet Take [...] Active Additional Information Patient taking differently:650 mg [id number] PRN, Pain, Breakthrough, Fever >38C(100.5F), Reported on 01/09/2025 Metoprolol Succinate ER 25 MG Oral Tablet Extended Release 24 Hour (toPROL XL)Indications:Hi story of ST elevation myocardial infarction (STEMI) Take 0.5 Tablets by mouth in the morning. 45 Tablet 3 024 Active Thyroid 30 MG Oral Tablet (Ponca Thyroid)Indicatio ns:Primary hypothyroidism one pill twice a day 180 Tablet 3 024 Active Losartan Potassium 25 MG Oral Tablet (Cozaar)Indicatio ns:HTN, goal below 130/80 Take 0.5 Tablets by mouth in the morning. 45 Tablet 3 024 Active Vitamin D (Ergocalciferol) 1.25 MG (06522 UT) Oral Capsule (Drisdol)Indicati ons:Senile osteoporosis Take [...] EVERY MORNING 90 Capsule 3 024 Active Mounjaro 5 MG/0.5ML Subcutaneous Solution Auto-injector (Tirzepatide)Suzy cations:Diabetes mellitus without complication (HCC) Inject 5 mg under the skin once a week. 2 mL 11 024 2024 Active Additional Information Patient taking differently:5 mg Subcutaneous QWEEK,Taking 2.5mg (d/t waiting on ins for [place]), Reported on 01/09/2025 Atorvastatin Calcium 80 MG Oral Tablet (Lipitor) TAKE 1 TABLET BY MOUTH EVERY DAY IN THE MORNING 90 Tablet 1 025 Active Hydrocortisone 2.5 % External CreamIndications: Atopic dermatitis, unspecified type Apply topically to affected areas on hands twice daily 30 g 025 Active Amoxicillin-Pot Clavulanate 875-125 MG Oral Tablet (Augmentin) Take 1 Tablet by mouth in the morning and 1 Tablet before bedtime. Do all this for 10 days. 20 Tablet 025 2024 Discontinued predniSONE 20 MG Oral Tablet (Deltasone) Take 2 Tablets by mouth in the morning for 5 days. 10 Tablet 025 2024 Discontinued documented as of this encounter (statuses as of 01/09/2025) Active Problems Problem Noted Date Diagnosed Date History of ST elevation myocardial infarction (S DANIEL) 04/04/2024 Dyslipidemia, goal LDL below 70 04/04/2024 HTN, goal below 130/80 04/04/2024 Primary hypothyroidism 04/04/2024 Coronary artery disease invo lving [place] coronary artery of [place] heart without angina pectoris 08/13/2023 Diabetes mellitus [...] as of this encounter (statuses as of 01/09/2025) Resolved Problems Problem Noted Date Diagnosed Date [...] as of this encounter (statuses as of 01/09/2025) Immunizations Name Administration Dates Next Due COVID-19 mRNA, LNP-s, No Pre serve, 2-Dose Series ([employer]) 04/18/2021,03/28/2021 COVID-19, LNP-s, No Preserve , Shailesh-sucrose, Ages 12+ ([employer]) 10/21/2021 Covid-19, Mrna, Lnp-s, Pf, B ivalent, 30 Mcg, IM, 12 yrs and above ([employer]) 09/10/2022 Pneumococcal Conjugate Vaccine, 20-valent (Prevn ar20) [...] Sign Reading Time Taken Comments Blood Pressure 104/70 01/09/2025 8:55 AM EST Pulse 92 01/09/2025 8:55 AM EST Temperature 35.6 °C (96.1 °F) 01/09/2025 8:55 AM ES T Respiratory Rate 15 01/09/2025 8:55 AM EST Oxygen Saturation 99% 01/09/2025 8:55 AM EST Inhaled Oxygen Concentration - - Weight 62.2 kg (137 lb 1.3 oz) 01/09/2025 8:55 A M EST Height - - Body Mass Index 28.16 09/30/2024 10:43 AM EST documented in this encounter Progress Notes * Neva Samayoa MD - 01/09/2025 9:04 AM EST Subjective Chief Complaint Patient presents with Acute HPI: Greg Gayle is a 59 year old female. Patient is unaccompanied. The following issues wereaddressed today: Patient presents today with c/o ongoing viral symptoms. States she recently had bronchitis in the beginning of November. Saw Ava De Oliveira PA-C on 12/21/24 and was treated with Augmentin and prednisone for ongoing cough and congestion. Improved some for a few days but now feeling poorly again. Has had poor appetite, fatigue, headache, sore throat. States in the last two days she feels jet-lagged. Still has cough but overall it has improved. Has had runny nose and congestion and mild crusting of her right eyelids. Has been taking Tylenol which helps some. Avoids taking NSAIDs. She denies fever or chills. Denies shortness of breath or chest pain. Notes a dry rash on her hands not getting better with moisturizer. She started Mounjaro 5mg about a month ago. Prior to that was on 2.5mg. Took her last injection on Wednesday. Review of Systems: See HPI Objective BP 104/70 | Pulse 92 | Temp 96.1 °F (35.6 °C) (Tympanic) | Resp 15 | Wt 137 lb 1.3 oz (62.2 kg) |LMP 11/02/2013 | SpO2 99% | BMI 28.16 kg/m² | BSA 1.6 m² Wt Readings from Last 3 Encounters: 01/09/25 137 lb 1.3 oz (62.2 kg) 12/21/24 137 lb 1.6 oz (62.2 kg) 11/13/24 135 lb (61.2 kg) BP Readings from Last 3 Encounters: 01/09/25 104/70 12/21/24 118/78 11/13/24 118/68 General: Well-appearing, no acute distress Head: Normocephalic and atraumatic Eyes: No conjunctival injection, no scleral icterus, extraocular movements are intact Ears: External ear unremarkable, canals normal and tympanic membranes clear bilaterally Nose: Nasal mucosa pink and moist, nares patent bilaterally Throat/Mouth: Oral mucosa pink and moist, tongue normal in appearance without lesions and with symmetrical movement, pharynx normal in appearance Cardiovascular: Regular rate and rhythm, no murmur Respiratory: Good respiratory effort, breath sounds equal and clear to auscultation bilaterally Neurological: Alert and oriented, no focal deficits noted Psychiatric: Appropriate mood and affect Assessment & Plan 1. Viral upper respiratory infection Continue supportive care. Patient encouraged to rest and maintain adequate hydration. Can use OTC pain relievers and saline nasal rinse as needed. Patient advised to monitor symptoms and seek medicalattention if experiencing high fever, worsening symptoms after 7-10 days, difficulty breathing, or chest pain. The importance of infection control measures to prevent spread were reviewed. Will check flu/COVD/RSV. - INFLUENZA A/B RSV SARS-COV2,PCR 2. Diabetes mellitus without complication (HCC) Well-controlled. Continue current medications. Discussed increased dose of Mounjaro may be causing some of her GI symptoms. Will continue to monitor. 3. Coronary artery disease involving [place] coronary artery of [place] heart without angina pectoris Stable. Continue current medications. 4. HTN, goal below 130/80 Well-controlled. Continue current medications. 5. Atopic dermatitis, unspecified type Start topical steroid cream. - Hydrocortisone 2.5 % External Cream; Apply topically to affected areas on hands twice daily Dispense: 30 g; Refill: 0 Return if symptoms worsen or fail to improve. This note was electronically signed by Neva Samayoa MD documented in this encounter Nursing Notes * Selma Dale LPN - 01/09/2025 8:52 AM EST Patient presents in office today with C/O for the last 8 days left ear hurts, sore throat, fatigue,having a hard time staying awake she is so tired. Right eye had drainage this morning when getting up. Cough is productive yellow/green phlegm. Head feels like it is under water, headache. documented in this encounter Plan of Treatment Upcoming Encounters Date Type Department Care Team (Late st Contact Info) Description 01/19/2025 8:00 AM EST Office Visit Otolaryngology [facility] [address] [place] [address] Thang Olson DO [address] [place] [address] 01/26/2025 8:00 AM EST [facility] [address] [facility] [address] Neva Samayoa MD [address] [place] [address] 04/12/2025 10:30 AM EDT Nurse Only Rheumatology [facility] [address] [place] [id number] Taz, Nurse Rheum [place] [id number] [facility] [place], [place] [address] 04/18/2025 8:00 AM EDT Office Visit [facility], [facility] [address] [facility] [address] Enedina Nogueira CRNP [address] [facility] [place], [place] [id number] Pending Results Name Type Priority Associated Diagnoses Date /Time INFLUENZA A/B RSV SARS-COV2,PCR Lab Routine Viral upper respiratory infection 01/09/2025 9:34 AM EST Scheduled Procedures Name Priority Associated Diagnoses Date/Ti me COLONOSCOPY FLEXIBLE PROXIMA L DIAGNOSTIC Recall Family history of colon cancer Health Maintenance Due Date Last Done Comments DISCUSS TOBACCO CESSATION (REFER TO SMARTSET #3292) 1963 HIV Screening 1978 HPV/Co-Test 1993 Cologuard [...] D LEVEL ONCE IN A LIFETIME-USE SMARTSET# 24692 Completed 08/11/2024, 04/04/2024, 07/27/2023, Additional history exists [...] as of this encounter Visit Diagnoses Diagnosis Viral upper respiratory infection- Primary Acute upper respiratory infections of unspecified site Diabetes mellitus without complication (HCC) Type II or unspecified type diabetes mellitus without mention of complication, not stated as uncontrolled Coronary artery disease involving [place] coronary artery of [place] heart without angina pectoris HTN, goal below 130/80 Unspecified essential hypertension Atopic dermatitis, unspecified type documented in this encounter Care Teams Forestry Adviser Relationship Specialty Start Date End Date Neva Samayoa MD [address] [place] [address] PCP - General Family Medicine 11/30/24 documented as of this encounter"
--- OUTSIDE RECORDS SUMMARY | 2025-03-19 14:00 | External Medical Summary ---
Author Name Unknown Address Unknown Organization [facility] [address] Laboratory Report Ordering Provider Test Date Status KALI CHASE 01/26/2025 08:49:47 Final Observation Date Value Abnormality Reference (Units ) Status SYNC LEUKOCYTES IN BLOOD BY AUTOMATED COUNT 01/26/2025 08:49:47 11.41 Above high normal 4.00-10.80 (K/uL) Final Segs 01/26/2025 08:49:47 44.7 40.0-75.0 (%) Final Lymphs % 01/26/2025 08:49:47 46.3 Above high normal 18.0-42.0 (%) Final Monos 01/26/2025 08:49:47 6.6 1.0-11.0 (%) Final Eosinophils 01/26/2025 08:49:47 2.3 0.0-6.0 (%) Final Basos 01/26/2025 08:49:47 0.1 0.0-2.0 (%) Final Absolute Segs 01/26/2025 08:49:47 5.11 1.80-7.70 (K/uL) Final Lymphs, absolute 01/26/2025 08:49:47 5.28 Above high normal 1.00-4.80 (K/ul) Final Monos, Abs 01/26/2025 08:49:47 0.75 0.00-1.10 (K/uL) Final Eos, Abs 01/26/2025 08:49:47 0.26 0.00-0.70 (K/uL) Final Basos, Abs 01/26/2025 08:49:47 0.01 0.00-0.20 (K/uL) Final Performing Location [facility] [address] [place] [address]
--- OUTSIDE RECORDS SUMMARY | 2025-03-19 14:00 | External Medical Summary | Summary of Care ---
Author Name Unknown Organization [facility] Address [address] [place] [address] Phone [phone] Care Team Providers Care Senior Controls Analyst Name Role Phone Neva Samayoa MD Primary Care Provider [phone] Reason for Visit * Reason Comments NEW PATIENT * Evaluate & Treat - Unlimited Visits (Within 30 days (routine)) - Authorized Specialty Diagnoses / Procedures Referred By Aleyda kumar Referred To Contact Otolaryngology Diagnoses Epistaxis Seth Oliver DO [address] [place] [address] Phone: tel: fax: Referral ID Status Reason Start Date Expiration Date Visits Requested Visits Authorized [id number] Authorized Specialty Services Required [phone] Encounter Details Date Type Department Care Team (Late st Contact Info) Description 01/19/2025 8:00 AM EST Office Visit Otolaryngology [facility] [address] [place] [address] Thang Olson DO [address] [place] [address] Recurrent epistaxis*; Hearing problem of right ear; Epistaxis [R04.0] Allergies Active Allergy Reactions Criticality Noted Date [...] as of this encounter (statuses as of 01/19/2025) Medications Suvorexant 20 MG Oral Tablet Take [...] Active Additional Information Patient taking differently:650 mg [id number] PRN, Pain, Breakthrough, Fever >38C(100.5F), Reported on 01/09/2025 Metoprolol Succinate ER 25 MG Oral Tablet Extended Release 24 Hour (toPROL XL)Indications:His tory of ST elevation myocardial infarction (STEMI) Take 0.5 Tablets by mouth in the morning. 45 Tablet 3 01/06/20 24 Active Thyroid 30 MG Oral Tablet (Grasston Thyroid)Indication s:Primary hypothyroidism one pill twice a day 180 Tablet 3 04/11/20 24 Active Losartan Potassium 25 MG Oral Tablet (Cozaar)Indication s:HTN, goal below 130/80 Take 0.5 Tablets by mouth in the morning. 45 Tablet 3 04/21/20 24 Active Vitamin D (Ergocalciferol) 1.25 MG (96066 UT) Oral Capsule (Drisdol)Indicatio ns:Senile osteoporosis Take [...] MORNING 90 Capsule 3 10/12/20 24 Active Mounjaro 5 MG/0.5ML Subcutaneous Solution Auto-injector (Tirzepatide)Indic ations:Diabetes mellitus without complication (HCC) Inject 5 mg under the skin once a week. 2 mL 11 10/27/20 24 025 Active Additional Information Patient taking differently:5 mg [...] twice daily 30 g 01/09/20 25 Active documented as of this encounter (statuses as of 01/19/2025) Active Problems Problem Noted Date Diagnosed Date History of ST elevation myocardial infarction (S DANIEL) 04/04/2024 Dyslipidemia, goal LDL below 70 04/04/2024 HTN, goal below 130/80 04/04/2024 Primary hypothyroidism 04/04/2024 Coronary artery disease invo lving navajo coronary artery of navajo heart without angina pectoris 08/13/2023 Diabetes mellitus [...] as of this encounter (statuses as of 01/19/2025) Resolved Problems Problem Noted Date Diagnosed Date [...] as of this encounter (statuses as of 01/19/2025) Immunizations Name Administration Dates Next Due COVID-19 mRNA, LNP-s, No Pre serve, 2-Dose Series ([employer]) 04/18/2021,03/28/2021 COVID-19, LNP-s, No Preserve , Shailesh-sucrose, Ages 12+ ([employer]) 10/21/2021 Covid-19, Mrna, Lnp-s, Pf, B ivalent, 30 Mcg, IM, 12 yrs and above ([employer]) 09/10/2022 Pneumococcal Conjugate Vaccine, 20-valent (Prevn ar20) [...] Sign Reading Time Taken Comments Blood Pressure - - Pulse - - Temperature 35.9 °C (96.6 °F) 01/19/2025 8:24 AM ES T Respiratory Rate - - Oxygen Saturation - - Inhaled Oxygen Concentration - - Weight 62.7 kg (138 lb 4.8 oz) 01/19/2025 8:24 A M EST Height 148.6 cm (4' 10.5") 01/19/2025 8:24 AM ES T Body Mass Index 28.41 01/19/2025 8:24 AM EST documented in this encounter Patient Instructions * Patient Instructions* Thang Olson DO - 01/19/2025 8:44 AM EST AYR gel Saline spray documented in this encounter Progress Notes * Thang Olson DO - 01/19/2025 8:52 AM EST 01/19/2025 HISTORY OF PRESENT ILLNESS This 59 year old female is seen at the request of Neva Samayoa MD for the initial evaluation of recurrent left-sided epistaxis. Patient states these happened spontaneously. Was seen in the emergency department by the emergency department providers previously as she could not get a recent episode stopped. She was on anticoagulation but this has since been stopped. No previous sinonasal surgery. She does not use any saline spray or [place] gel. In addition has concerns about hearing and discomfort of the right ear. No otorrhea. No previous otologic surgery.. Problem List Patient Active Problem List Diagnosis Irritable bowel syndrome Vitamin D insufficiency Controlled substance agreement signed Senile osteoporosis PTSD (post-traumatic stress disorder) Insomnia Moderate episode of recurrent major depressive disorder (HCC) Chronic bilateral back pain Positional sleep apnea Nocturnal hypoxemia Adrenal mass (HCC) Diabetes mellitus without complication (HCC) Coronary artery disease involving navajo coronary artery of navajo heart without angina pectoris History of ST elevation myocardial infarction (STEMI) Dyslipidemia, goal LDL below 70 HTN, goal below 130/80 Primary hypothyroidism Past Medical History: Diagnosis Date Adrenal mass (HCC) 02/11/2022 Compression fracture of L2 (HCC) 11/22/2011 Compression fracture of L4 lumbar vertebra 10/22/2014 Coronary artery disease involving navajo coronary artery of navajo heart without angina pectoris 08/13/2023 GERD (gastroesophageal [...] performed by Lyndon Luciano MD at ENDOSCOPY [facility] COLONOSCOPY, DIAGNOSTIC (RECTUM) 06/19/2021 diverticulosis, repeat 5 yrs / COLONOSCOPY FLEXIBLE PROXIMAL DIAGNOSTIC performed by Oren Ryder MD at ENDOSCOPY [facility] EGD, FLEXIBLE, DIAGNOSTIC 10/21/2017 + H pylori, hiatal hernia/ESOPHAGOGASTRODUODENOSCOPY (EGD), FLEXIBLE, TRANSORAL, DIAGNOSTIC performed by Lyndon Luciano MD at ENDOSCOPY [facility] EGD, FLEXIBLE, DIAGNOSTIC 06/20/2018 + H pylori, gastritis, duodenitis/ESOPHAGOGASTRODUODENOSCOPY (EGD), FLEXIBLE, TRANSORAL, DIAGNOSTICperformed by Lyndon Luciano MD at ENDOSCOPY [facility] EGD, FLEXIBLE, DIAGNOSTIC 08/21/2021 biopsies show inflammation end of esophagus consistent with acid reflux/ESOPHAGOGASTRODUODENOSCOPY (EGD), FLEXIBLE, TRANSORAL, DIAGNOSTIC performed by Oren Ryder MD at ENDOSCOPY [facility] EGD, W/ENDOSCOPIC US 11/25/2018 gastritis, duodenitis/ESOPHAGOGASTRODUODENOSCOPY (EGD), FLEXIBLE, TRANSORAL, ENDOSCOPIC ULTRASOUND performed by Félix Diaz DO at ENDOSCOPY [facility] INFORMATION 12/06/2000 duodenum biopsy-benign INFORMATION Left 12/25/2016 12/25/2016 excision of sebaceous cyst left breast - office procedure - DR. Jesus Rainey L-/S-SPINE PARAVERTEBRAL FACET INJ,1 LEVEL 05/18/2016 L-/S-SPINE PARAVERTEBRAL FACET INJ, 1 LEVEL performed by [place] Darian Moralez DO at OR [facility] L-/S-SPINE PARAVERTEBRAL FACET INJ,1 LEVEL 06/02/2016 L-/S-SPINE PARAVERTEBRAL FACET INJ, 1 LEVEL performed by [place] Darian Moralez DO at OR [facility] L-/S-SPINE PARAVERTEBRAL FACET INJ,1 LEVEL 09/23/2017 L-/S-SPINE PARAVERTEBRAL FACET INJ, 1 LEVEL performed by Hor[place] Darian Moralez, at OR [facility] L-/S-SPINE PARAVERTEBRL FACET INJ,2 LEVELS 05/18/2016 L-/S-SPINE PARAVERTEBRAL FACET INJ, 2 LEVELS performed by [place] Darian Moralez DO at OR [facility] L-/S-SPINE PARAVERTEBRL FACET INJ,2 LEVELS 09/23/2017 L-/S-SPINE PARAVERTEBRAL FACET INJ, 2 LEVELS performed by [facility] Naomy DO at OR [facility] LAPAROSCOPY; CHOLECYSTECTOMY 04/29/2001 MISCELLANEOUS ORDER ([facility] ONLY) 12/2014 back procedure for compression fracture on L4 PAP SCREEN 09/15/2000 pap satisfactory for eval. dr. hung REMOVAL OF APPENDIX 1972 REMOVAL OF APPENDIX 1970's Appendectomy REPAIR EPIGASTRIC HERNIA 01/18/2006 epigatric hernia with mest by SMALL BOWEL ENDOSCOPY W/BX 01/19/2011 bxs, sm sliding hiatal hernia, +H.Pylori infection UPPER ENDOSCOPY GI REFERRAL OP 2000 Medications Current Outpatient Medications Medication Sig Dispense Refill Suvorexant 20 MG Oral Tablet Take 1 Tab by mouth at bedtime. busPIRone (BUSPAR) 15 MG Tablet Take 1 Tablet by mouth in the morning and 1 Tablet at noon and 1 Tablet before bedtime. LORazepam 1 MG Oral Tablet (Ativan) TAKE 1/2 TABLET BY MOUTH 4 TIMES A DAY NEEDED FOR ANXIETY Glucose Blood In Vitro Strip Use to check blood sugars daily while fasting E11.9 300 Strip 11 Hyoscyamine Sulfate 0.125 MG Sublingual Tablet Sublingual (Levsin) DISSOLVE ONE TABLET UNDER THE TONGUE 4 TIMES DAILY NEEDED FOR ABDOMINAL PAIN IF UNABLE TO TOLERATE BENTYL. 360 Tablet 3 Dicyclomine HCl 20 MG Oral Tablet (Bentyl) Take 1 Tablet by mouth as needed (abdominal cramping). 270 Tablet 1 QUEtiapine Fumarate 300 MG Oral Tablet (SEROquel) Take 1 Tablet by mouth at bedtime. Acetaminophen ER 650 MG Oral Tablet Extended Release (Tylenol 8 Hour) Take 1 Tablet by mouth every 6 hours. (Patient taking differently: Take 1 Tablet by mouth every 8 hours as needed for Pain, Breakthrough or Fever >38C(100.5F).) Metoprolol Succinate ER 25 MG Oral Tablet Extended Release 24 Hour (toPROL XL) Take 0.5 Tablets by mouth in the morning. 45 Tablet 3 Thyroid 30 MG Oral Tablet (Grasston Thyroid) one pill twice a day 180 Tablet 3 Losartan Potassium 25 MG Oral Tablet (Cozaar) Take 0.5 Tablets by mouth in the morning. 45 Tablet 3 Vitamin D (Ergocalciferol) 1.25 MG (96369 UT) Oral Capsule (Drisdol) Take 1 Capsule [...] BY MOUTH EVERY MORNING 90 Capsule 3 Mounjaro 5 MG/0.5ML Subcutaneous Solution Auto-injector (Tirzepatide) Inject 5 mg under the skin once a week. (Patient taking differently: Inject 5 mg under the skin once a week. Taking 2.5mg (d/t waiting on ins for [place])) 2 mL 11 Atorvastatin Calcium 80 MG Oral Tablet (Lipitor) TAKE 1 TABLET BY MOUTH EVERY DAY IN THE MORNING 90Tablet 1 Hydrocortisone 2.5 % External Cream Apply topically to affected areas on hands twice daily 30 g 0 No current facility-administered medications for this visit. Allergies Review of patient's allergies indicates: Allergen Reactions Alendronate Stomach upset Clarithromycin Stomach pain Codeine IBS- stomach issues Other reaction(s): can't breathe Egg-Derived Products Hives Patient states she can eat products that contain small amounts of eggs, but not an egg alone. Ensure Nausea/vomiting Morphine chest pain Other reaction(s): can't breathe Family History Family History Problem Relation Name Age of Onset Stomach cancer Father age 60 Thyroid Disorder Mother hypothyroid Hypertension Mother Other (Sepsis) Mother post gallbladder surgery; age 85 Stomach cancer Grandfather (Paternal) Breast Cancer No significant family history Colon cancer No significant family history Ovarian cancer No significant family history Social History Social History Tobacco Use Smoking status: Some Days Current packs/day: 0.25 Average packs/day: 0.3 packs/day for 36.0 years (9.0 ttl pk-yrs) Types: Cigarettes Smokeless tobacco: Never Substance Use Topics Alcohol use: No Vaping/E-Cigarette Use Vaping/E-Cigarette Use Never User Vaping/E-Cigarette Substances Nicotine No Other No Flavoring No THC No Cannabidiol (CBD) No Vaping/E-Cigarette Devices Disposable No Pre-filled or Refillable Cartridge No Refillable Tank No Pre-filled Pod No Review of Systems Negative for constitutional, eyes, cardiac, pulmonary, hepatic, renal, digestive, hematologic, epileptic, syncopal, musculo-skeletal, mental health, integumentary, hypertensive, lipid, arthritic, diabetic, thyroid, or neurologic disorders (except as listed in the PMH and Problem List). Physical Examination: Temp 35.9 °C (96.6 °F) (Tympanic) | Ht 1.486 m (4' 10.5") | Wt 62.7 kg (138 lb 4.8 oz) | LMP 11/02/2013 | BMI 28.41 kg/m² | BSA 1.61 m² PHYSICAL EXAM General: This is a healthy appearing female who appears her stated age. The patient is alert and appropriately verbally conversant without hoarseness. Face: The face was inspected and no cutaneous masses or lesions were visualized. There was no erythema or edema noted. Facial movement was symmetric without weakness. No skin lesions were detected. There was no sinus tenderness elicited. The parotid and submandibular glands were normal to palpation. Eyes: Extra-ocular muscle function was intact. No nystagmus was observed. Pupils were equal. Cranial Nerves: Cranial nerves II, III, IV, and were noted to be intact via extra-ocular muscle movement testing. Cranial nerve VII noted to be intact and symmetric by facial movement. Nose: Examination of the nose revealed no masses, polyps, mucopus, or other lesion. The nasal septum was non-obstructing. The turbinates were without abnormality. Oral Cavity: Examination of the oral cavity revealed no mass lesions nor infection. The palate was noted to be intact without evidence of clefting. The tongue exhibited normal mobility. Mucosa was moist without lesion. The lips were free of lesion. Gums were free of inflammation. Dentition: Unremarkable Oropharynx: The oral pharynx was free of mass lesion or mucosal abnormality. The palate was noted to be without lesion. The uvula was normal appearing. The tonsils were unremarkable. Ears: Examination of the ears revealed that the auricles were normally formed with no lesions. The external auditory canals were cleaned of any obstructing cerumen. The tympanic membranes were intactand freely mobile to pneumatoscopy. There are no significant retraction pockets. There is no inflammation visualized. No effusions are seen. Neck: Visualization and palpation of the neck revealed no mass lesions, no thyromegaly or thyroid masses. No skin lesions or inflammatory processes were detected. The cervical musculature was normal to palpation. Lymphatics (cervical): There were no palpable lymph nodes in the posterior triangle, submandibular triangle, jugulodigastric region, or central neck. Lungs: Breathing quietly. No use of accessory muscles. Heart: Regular rate. No JVD. Procedure: In order to assess the paranasal sinuses, endoscopy of the nose and paranasal sinuses was performed. The nose was decongested with topical oxymetazoline 0.05% spray and then anesthetized with topicalLidocaine 4% spray. The scope was used to examine each side of the nose. There were no masses visualized. The nasal mucosa was without lesion. The middle meatus on each side was clear of mass, polyp,or mucopus. The septum was non-obstructing. The nasopharynx was without lesion. The patient tolerated the procedure well. Assessment: 59-year-old female with recurrent epistaxis who also has subjective right-sided hearing loss and referred bilateral right worse than left otalgia. Plan: I do not appreciate any prominent vessel requiring cautery. Recommend use of saline spray and [place] gel. Patient reassured her ears are healthy on exam today. Suspect her ear pain is referred from her cervical musculature and/or TMJ. Will set her up with audiology for an audiogram for further evaluation of her subjective right-sided hearing loss I spent a total of 45 minutes on the date of service in preparation, delivery, and documentation ofthe care provided to the above patient, excluding any time spent on the performance of any procedures or separately billable services. Thang Olson DO, [facility] Supervisor Home Economics, Department of Otolaryngology-Head and Neck Surgery [facility] [place], [place] 01/19/2025 8:56 AM documented in this encounter Nursing Notes * Ines Clark LPN - 01/19/2025 8:15 AM EST Chief Complaint Patient presents with NEW PATIENT Patient presents today for evaluation of recurrent nose bleeds, last one was 4 days ago. Not as severe now since stopping Brilinta. Had to go to the ED in August once for a bleed uncontrolled for about 2 hours. Bleeds lasting now only 10 mins. Mostly left sided. Not using any preventative measures. Uses afrin with nose bleeds. Gets sinus infections 1-2 yearly for the last 20 yrs. Last 10 days has had ear aches/headaches, right ear is muffled and painful. She states she was put on abx and prednisone for sinusitis, did not help went back for viral testing. Then was dx with bronchitis due to ongoing cough. Pcp noted fluid in the ear. documented in this encounter Plan of Treatment Upcoming Encounters Date Type Department Care Team (Late st Contact Info) Description 01/22/2025 1:30 PM EST Office Visit [facility] [place] [address] Loretta Umanzor Au.D. [address] [facility] [place] [address] 01/26/2025 8:00 AM EST Office Visit Family Practice [facility] [address] [facility] [place] [address] Neva Samayoa MD [address] [facility] [place] [address] 04/12/2025 10:30 AM EDT Nurse Only Rheumatology [facility] [address] [facility] [place] [phone] Taz Nurse Andreina [address] [place] [address] 04/18/2025 8:00 AM EDT Office Visit Cardiology, [facility] [address] [facility] [place] [address] Enedina Nogueira CRNP [address] [facility] [place] [id number] Scheduled Procedures Name Priority Associated Diagnoses Date/Ti me COLONOSCOPY FLEXIBLE PROXIMA L DIAGNOSTIC Recall Family history of colon cancer Scheduled Referrals Name Type Priority Associated Diagnoses Order Schedule ADULT/PEDS OTOLARYNGOLOGY REFERRAL OP Referral Within 30 days (routine) Epistaxis Ordered: 11/13/2024 Health Maintenance Due Date Last Done Comments DISCUSS TOBACCO CESSATION (REFER TO SMARTSET #1891) 1963 HIV Screening 1978 HPV/Co-Test 1993 Cologuard [...] D LEVEL ONCE IN A LIFETIME-USE SMARTSET# [id number] Completed 08/11/2024, 04/04/2024, 07/27/2023, Additional history exists [...] as of this encounter Visit Diagnoses Diagnosis Recurrent epistaxis- Primary Epistaxis Hearing problem of right ear Epistaxis [R04.0] Epistaxis documented in this encounter Care Teams Senior Controls Analyst Relationship Specialty Start Date End Date Neva Samayoa MD [address] [facility] [place] [address] PCP - General Family Medicine 11/30/24 documented as of this encounter
--- OUTSIDE RECORDS SUMMARY | 2025-03-19 14:00 | External Medical Summary ---
Author Name Unknown Address Unknown Organization [id number]:LABORATORY [facility] [place] - [address] [place] [address] Laboratory Report Ordering Provider Test Date Status KALI CHASE 01/26/2025 08:49:47 Final Observation Date Value Abnormality Reference (Units ) Status Vitamin B12 01/26/2025 08:49:47 543 [id number] (pg/mL) Final Performing Location LABORATORY [facility] - [address] [place] [address]
--- OUTSIDE RECORDS SUMMARY | 2025-03-19 14:00 | External Medical Summary ---
Author Name Unknown Address Unknown Organization [id number][place] [place] [address] [facility] [address] Laboratory Report Ordering Provider Test Date Status KALI CHASE 01/09/2025 09:34:10 Final Observation Date Value Abnormality Reference (Units ) Status SARS Coronavirus 2 01/09/2025 09:34:10 Negative N egative Final No SARS-CoV2 Coronavirus RNA detected by PCR (amplified probe).
This automated test was developed and its performance characteristics determined by [email or web address]. It has not been cleared or approved by the U.S. Food and Drug Administration (FDA). FDA does not require this test to go thru premarket FDA review. This test is used for clinical purposes. It should not be regarded as investigational or for research. This laboratory is certified under the Clinical Laboratory Improvement Amendments (CLIA) as qualified to perform high complexity clinical laboratory testing.

This test is a nucleic acid amplification test (NAAT), a reverse transcriptase polymerase chain reaction (RT-PCR) test, or a Centers for Disease Control-acceptable equivalent. The test is performed in a high complexity Clinical Laboratory Improvement Amendments-(CLIA) certified laboratory. The test is acceptable for SARS-CoV-2 diagnosis, surveillance, and travel within the [place] and to most countries. Please check with local testing authorities about requirements before travel.

The validation of bronchial specimens, tracheal aspirates, and sputum for this assay was developed and performance characteristics determined by [email or web address]. The validation of alternate specimen types has not been cleared or approved by the U.S. Food and Drug Administration (FDA). It has been determined that such clearance or approval is not necessary. Influenza virus A RNA [Prese nce] in Specimen by CHRISTY with probe detection 01/09/2025 09:34:10 Negative Negative Final No Influenza A RNA detected by PCR (amplified probe) Influenza virus B RNA [Prese nce] in Specimen by CHRISTY with probe detection 01/09/2025 09:34:10 Negative Negative Final No Influenza B RNA detected by PCR (amplified probe) Respiratory syncytial virus RNA [Identifier] in Specimen by CHRISTY with probe detection 01/09/2025 09:34:10 Negative Negative Final No Respiratory Syncytial Vir us RNA detected by PCR (amplified probe) Performing Location LABORATORY [address] [place] [facility] [address]
--- OUTSIDE RECORDS SUMMARY | 2025-03-19 14:00 | External Medical Summary ---
Author Name Unknown Address Unknown Organization [id number]:[facility] [place] [address] [place] [address] Laboratory Report Ordering Provider Test Date Status MEGHANA CHASEOLLY 01/26/2025 08:49:47 Final Observation Date Value Abnormality Reference (Units ) Status Ferritin 01/26/2025 08:49:47 87 13-150 (ng /mL) Final Postmenopausal women have hi gher ferritin levels than pre-menopausal women. The above reference interval is based on pre-menopausal women. Performing Location LABORATORY [facility] - [address] [place] [address]
--- OUTSIDE RECORDS SUMMARY | 2025-03-19 14:00 | External Medical Summary ---
Author Name Unknown Address Unknown Organization K09:[facility]ORATORY [facility] [address] [place] [address] Laboratory Report Ordering Provider Test Date Status KALI CHASE 01/26/2025 08:49:47 Final Observation Date Value Abnormality Reference (Units ) Status BUN 01/26/2025 08:49:47 13 6-20 (mg/dL) Final Creatinine 01/26/2025 08:49:47 0.8 0.5-1.0 (mg/dL) Final Glomerular filtration rate/1.73 sq M.predicted [Volume Rate/Area] in Serum, Plasma or Blood by Creatinine-based formula (CKD-EPI) 01/26/2025 08:49:47 83 >=60 (mL/min) Final eGFR is calculated based on the CKD-EPI 2020 equation. Sodium 01/26/2025 08:49:47 139 135-146 (m mol/L) Final Potassium 01/26/2025 08:49:47 5.0 3.5-5.1 (m mol/L) Final Cl 01/26/2025 08:49:47 102 98-107 (mm ol/L) Final CO2 01/26/2025 08:49:47 24 22-32 (mmo l/L) Final Anion gap 01/26/2025 08:49:47 13 7-15 (mmol /L) Final Glucose 01/26/2025 08:49:47 109 70-120 (mg /dL) Final Albumin 01/26/2025 08:49:47 4.9 3.8-5.0 (g /dL) Final AST (Aspartate aminotransferase) 01/26/2025 08:49:47 13 10-35 (U/L) Fin al Alk Phos 01/26/2025 08:49:47 101 35-130 (U/ L) Final Bilirubin, Total 01/26/2025 08:49:47 0.3 <=1 .2 (mg/dL) Final Calcium 01/26/2025 08:49:47 10.6 Above high normal 8. 4-10.2 (mg/dL) Final Protein 01/26/2025 08:49:47 8.4 Above high normal 6. 0-8.3 (g/dL) Final ALT (Alanine aminotransferase) 01/26/2025 08:49:47 28 10-35 (U/L) Zoran reed Performing Location LABORATORY [facility] [address] [place] [address]
--- OUTSIDE RECORDS SUMMARY | 2025-03-19 14:00 | External Medical Summary ---
Author Name Unknown Address Unknown Organization [id number]:[facility] [address] Laboratory Report Ordering Provider Test Date Status KALI CHASE 01/26/2025 08:49:47 Final Observation Date Value Abnormality Reference (Units ) Status WBC, Total 01/26/2025 08:49:47 11.41 Above high normal 4 .00-10.80 (K/uL) Final RBC 01/26/2025 08:49:47 5.50 3.85-5.15 (M/uL) Final Hemoglobin 01/26/2025 08:49:47 15.3 12.0-15.3 (g/dL) Final HCT 01/26/2025 08:49:47 46.8 Above high normal 36 .0-45.2 (%) Final MCV 01/26/2025 08:49:47 85.1 81.5-97.5 (fL) Final MCH 01/26/2025 08:49:47 27.8 27.0-34.0 (pg) Final MCHC 01/26/2025 08:49:47 32.7 32.0-36.0 (g/dL) Final RDW 01/26/2025 08:49:47 14.9 11.5-15.5 (%) Final Platelets 01/26/2025 08:49:47 325 140-400 (K /uL) Final MPV 01/26/2025 08:49:47 9.5 6.6-11.1 ( fL) Final Performing Location [facility] [address]
--- OUTSIDE RECORDS SUMMARY | 2025-03-19 14:00 | External Medical Summary ---
Author Name Unknown Address Unknown Organization [id number]:[facility] [place] - [address] [facility] [address] Laboratory Report Ordering Provider Test Date Status MEGHANA CHASEOLLY 01/26/2025 08:49:47 Final Observation Date Value Abnormality Reference (Units ) Status Iron 01/26/2025 08:49:47 87 33-151 (ug /dL) Final Iron-binding capacity 01/26/2025 08:49:47 381 250-425 (ug/dL) Final Transferrin Sat % 01/26/2025 08:49:47 23 15 -55 (%) Final Performing Location [facility] [place] - [address] [facility] [address]
--- OUTSIDE RECORDS SUMMARY | 2025-03-19 14:01 | External Medical Summary | Summary of Care ---
Author Name Unknown Organization [facility] Address [address] [place] [address] Phone [phone] Care Team Providers Care Research Worker Encyclopedia Name Role Phone Neva Samayoa MD Primary Care Provider [phone] Reason for Visit * Reason Onset Date Comments Medication Refill 10/10/2024 Encounter Details Date Type Department Care Team (Late st Contact Info) Description 10/10/2024 Refill Family Practice [facility] [address] [place] [facility] [place] [address] Paco Luis, DO [address] [facility] [address] Allergies Active Allergy Reactions Criticality Noted Date [...] as of this encounter (statuses as of 12/22/2024) Medications Suvorexant 20 MG Oral Tablet Take [...] Active Additional Information Patient taking differently:650 mg [id number] PRN, Pain, Breakthrough, Fever >38C(100.5F), Reported on 12/21/2024 Metoprolol Succinate ER 25 MG Oral Tablet Extended Release 24 Hour (toPROL XL)Indications:His tory of ST elevation myocardial infarction (STEMI) Take 0.5 Tablets by mouth in the morning. 45 Tablet 3 01/06/20 24 Active Thyroid 30 MG Oral Tablet ([place] Thyroid)Indication s:Primary hypothyroidism one pill twice a day 180 Tablet 3 04/11/20 24 Active Losartan Potassium 25 MG Oral Tablet (Cozaar)Indication s:HTN, goal below 130/80 Take 0.5 Tablets by mouth in the morning. 45 Tablet 3 04/21/20 24 Active Atorvastatin Calcium 80 MG Oral Tablet (Lipitor) TAKE 1 TABLET BY MOUTH EVERY DAY IN THE MORNING 90 Tablet 09/05/20 24 Active Vitamin D (Ergocalciferol) 1.25 MG (58227 UT) Oral Capsule (Drisdol)Indicatio ns:Senile osteoporosis Take [...] MORNING 90 Tablet 3 10/09/20 24 Active documented as of this encounter (statuses as of 12/22/2024) Active Problems Problem Noted Date Diagnosed Date History of ST elevation myocardial infarction (S DANIEL) 04/04/2024 Dyslipidemia, goal LDL below 70 04/04/2024 HTN, goal below 130/80 04/04/2024 Primary hypothyroidism 04/04/2024 Coronary artery disease invo lving [place] coronary artery of [place] heart without angina pectoris 08/13/2023 Diabetes mellitus [...] as of this encounter (statuses as of 12/22/2024) Resolved Problems Problem Noted Date Diagnosed Date [...] as of this encounter (statuses as of 12/22/2024) Immunizations Name Administration Dates Next Due COVID-19 mRNA, LNP-s, No Pre serve, 2-Dose Series (Askem) 04/18/2021,03/28/2021 COVID-19, LNP-s, No Preserve , Shailesh-sucrose, Ages 12+ (Pfizer) 10/21/2021 Covid-19, Mrna, Lnp-s, Pf, B ivalent, 30 Mcg, IM, 12 yrs and above (Askem) 09/10/2022 Pneumococcal Conjugate Vaccine, 20-valent (Prevn ar20) 12/23/2022 Pneumococcal Polysaccharide PPV23 (Pneumovax) TD - Tetanus/Diptheria (ADULT) 11/22/2003 TDAP (age 10 and older)(Boostrix) 09/29/2012 Zoster Vaccine Recombinant (Shingrix) 12/15/2019 documented as of this encounter Social History Tobacco Use Types Packs/Day Years Used Date Smoking Tobacco: Some Days Cigarettes 0.3 36 Smokeless Tobacco: Never Comments:in process of quitt ing but smokes a cigarette a few times a day Alcohol Use Standard Drinks/Week Comments No 0 [...] No 02/11/2024 Does the household have a [facility] source of income? (Household - for ages [...] ages 0-17 years) Not on file 02/11/2024 Comments No Sex and Gender Information [...] encounter Miscellaneous Notes * Telephone Encounter - Gayathri Lezama PHARM Tech - 10/10/2024 3:30 PM EST Patient calling in regarding Linzess. This was last prescribed by PCP office, transferring caller to Medication Refill Line for further assistance. Thank you, Danny Lezama Truck Guard I [facility] ([facility] 10/10/2024,3:30 PM documented in this encounter Plan of Treatment Upcoming Encounters Date Type Department Care Team (Late st Contact Info) Description 12/27/2024 11:00 AM EST Office Visit Otolaryngology [facility] [address] [place] [address] [address] Raffaele Morales PA-C [address] [place] [address] 01/26/2025 8:00 AM EST Office Visit Family Practice [facility] 200 [facility] [place] [address] Neva Samayoa MD 200 [facility] [place] [address] 04/12/2025 10:30 AM EDT Nurse Only Rheumatology [facility] [address] [place] [phone] Taz Nurse Andreina [address] [place] [address] 04/18/2025 8:00 AM EDT Office Visit Cardiology, [facility] [address] [place] [address] Enedina Nogueira CRNP 400 [facility] [place], [place] [phone] Scheduled Procedures Name Priority Associated Diagnoses Date/Ti me COLONOSCOPY FLEXIBLE PROXIMA L DIAGNOSTIC Recall Family history of colon cancer Health Maintenance Due Date Last Done Comments DISCUSS TOBACCO CESSATION (REFER TO SMARTSET #8314) 1965 HIV Screening 1978 HPV/Co-Test 1993 Cologuard [...] D LEVEL ONCE IN A LIFETIME-USE SMARTSET# [id number] Completed 08/11/2024, 04/04/2024, 07/27/2023, Additional history exists [...] filedocumented as of this encounter Care Teams Research Worker Encyclopedia Relationship Specialty Start Date End Date Neva Samayoa MD [address] [place] [address] PCP - General Family Medicine 11/30/24 documented as of this encounter
--- OUTSIDE RECORDS SUMMARY | 2025-03-19 14:01 | External Medical Summary ---
Author Name Unknown Address Unknown Organization K01:[facility] [place] - [address] [facility] [address] Laboratory Report Ordering Provider Test Date Status KALI CHASE 12/21/2024 13:28:11 Final Observation Date Value Abnormality Reference (Units ) Status HbA1C 12/21/2024 13:28:11 6.3 Above high normal 4. 0-5.6 (%) Final The use of HbA1c to monitor glycemic status is based on normal hemoglobin and HbA composition. This test should not be used in patients with abnormal hemoglobin that affects the half life of the red blood cell or the in vivo glycation rates. Glucose, estimated average 12/21/2024 13:28:11 134 Above high normal <126 (mg/dL) Zoran reed Performing Location [facility] [place] - [address] [facility] [address]
--- OUTSIDE RECORDS SUMMARY | 2025-03-19 14:01 | External Medical Summary | Summary of Care ---
Author Name Unknown Organization [facility] Address [address] [place] [address] Phone [phone] Care Team Providers Care Banking Attorney Name Role Phone Neva Samayoa MD Primary Care Provider [phone] Reason for Visit * Reason Comments Outpatient Testing Encounter Details Date Type Department Care Team (Late st Contact Info) Description 12/21/2024 1:40 PM EST Laboratory Laboratory [facility] [address] [place] [phone] [facility] [address] [facility] [address] Diabetes mellitus without complication (HCC) Allergies Active Allergy Reactions Criticality Noted [...] as of this encounter (statuses as of 12/21/2024) Medications Suvorexant 20 MG Oral Tablet Take [...] Active Additional Information Patient taking differently:650 mg [id number] PRN, Pain, Breakthrough, Fever >38C(100.5F), Reported on 12/21/2024 Metoprolol Succinate ER 25 MG Oral Tablet Extended Release 24 Hour (toPROL XL)Indications:His tory of ST elevation myocardial infarction (STEMI) Take 0.5 Tablets by mouth in the morning. 45 Tablet 3 01/06/20 24 Active Thyroid 30 MG Oral Tablet ([place] Thyroid)Indication s:Primary hypothyroidism one pill twice a [...] 24 Active Vitamin D (Ergocalciferol) 1.25 MG (04768 UT) Oral Capsule (Drisdol)Indicatio ns:Senile osteoporosis Take [...] waiting on ins for PA), Reported on 12/21/2024 Amoxicillin-Pot Clavulanate 875-125 MG Oral Tablet (Augmentin) Take 1 Tablet by mouth in the morning and 1 Tablet before bedtime. Do all this for 10 days. 20 Tablet 12/21/19 25 025 Active predniSONE 20 MG Oral Tablet (Deltasone) Take 2 Tablets by mouth in the morning for 5 days. 10 Tablet 12/21/19 25 025 Active documented as of this encounter (statuses as of 12/21/2024) Active Problems Problem Noted Date Diagnosed Date History of ST elevation myocardial infarction (S DANIEL) 04/04/2024 Dyslipidemia, goal LDL below 70 04/04/2024 HTN, goal below 130/80 04/04/2024 Primary hypothyroidism 04/04/2024 Coronary artery disease invo lving [place] coronary artery of [place] heart without angina pectoris 08/13/2023 Diabetes mellitus [...] as of this encounter (statuses as of 12/21/2024) Resolved Problems Problem Noted Date Diagnosed Date [...] as of this encounter (statuses as of 12/21/2024) Immunizations Name Administration Dates Next Due COVID-19 mRNA, LNP-s, No Pre serve, 2-Dose Series (Pfizer) 04/18/2021,03/28/2021 COVID-19, LNP-s, No Preserve , Shailesh-sucrose, Ages 12+ (Pfizer) 10/21/2021 Covid-19, Mrna, Lnp-s, Pf, B ivalent, 30 Mcg, IM, 12 yrs and above (PeerReach) 09/10/2022 Pneumococcal Conjugate Vaccine, 20-valent (Prevn ar20) [...] 12/27/2024 11:00 AM EST Office Visit Otolaryngology [facility] [address] [place] [address] Raffaele Morales PA-C [address] [place] [address] 01/26/2025 8:00 AM EST Office Visit Family Practice [facility] 200 [facility] [place] [address] Neva Samayoa MD 200 [facility] [place] [address] 04/12/2025 10:30 AM EDT Nurse Only Rheumatology [facility] [address] [place] [phone] Taz Nurse Andreina [address] [place] [address] 04/18/2025 8:00 AM EDT Office Visit Cardiology, [facility] [address] [place] [address] Enedina Nogueira CRNP 400 [facility] [place] [phone] Scheduled Procedures Name Priority Associated Diagnoses Date/Ti me COLONOSCOPY FLEXIBLE PROXIMA L DIAGNOSTIC Recall Family history of colon cancer Health Maintenance Due Date Last Done Comments DISCUSS TOBACCO CESSATION (REFER TO SMARTSET #3461) 1965 HIV Screening 1978 HPV/Co-Test 1993 Cologuard [...] Additional history exists Depression Monitoring 12/17/2024 12/17/2023 HbA1c 02/08/2025 12/21/2024, 07/24, 04/04/2024, Additional history exists Diabetic Eye Exam 04/04/2025 04/04/2024 Diabetic Foot Exam 04/04/2025 04/04/2024 Albumin/Creatinine Ratio 08/11/2025 08/11/2024, 03/24 GFR 08/11/2025 08/11/2024, 03/24, 02/07/2024, Additional history exists Colonoscopy 06/19/2026 06/19/2021, 05/23, 06/10/2016, Additional history exists Colorectal Cancer Screening 06/19/2026 DXA Scan 2026 2024, 07/23, 06/03/2020, Additional history exists RETIRED - COLONOSCOPY-EVERY 5 YRS AGES 18-100 Discontinued 06/19/2021, 06/19/2021, 06/10/2016, Additional history exists Pneumococcal Vaccine: 50+ Years Completed 12/23/2022, 03/19/2009 VITAMIN D LEVEL ONCE IN A LIFETIME-USE SMARTSET# [id number] Completed 08/11/2024, 04/04/2024, 07/27/2023, Additional history exists [...] Procedure Name Priority Date/Time Associated Diagnosis Comments HEMOGLOBIN A1C Routine 12/21/2024 1:28 PM EST Diabetes mellitus without complication (HCC) documented in this encounter Results * (ABNORMAL) HEMOGLOBIN A1C (12/21/2024 1:28 PM EST) Hemoglobin A1C 6.3(H) 4.0 - 5.6 % 12/21/2024 7:13 PM EST [facility] Comment:The use of HbA1c to monitor glycemic status is based on normal hemoglobin and HbA composition. This test should not be used in patients with abnormal hemoglobin that affects the half life of the red blood cell or the in vivo glycation rates. Estimated Average Glucose 134(H) <126 mg/dL 12/21/2024 7:13 PM EST [facility] Blood Venous blood specimen / Unknown Venipuncture / Unknown 12/21/2024 1:28 PM EST 12/21/2024 1:28 PM EST us Neva Samayoa MD LAB BLOOD ORDERABLES Final Resu lt [facility] [address] [place] [address] documented in this encounter Visit Diagnoses Diagnosis Diabetes mellitus without complication (HCC) Type II or unspecified type diabetes mellitus without mention of complication, not stated as uncontrolled documented in this encounter Care Teams Banking Attorney Relationship Specialty Start Date End Date Neva Samayoa MD 200 [facility] [place] [address] PCP - General Family Medicine 11/30/24 documented as of this encounter
--- OUTSIDE RECORDS SUMMARY | 2025-03-19 14:01 | External Medical Summary | Summary of Care ---
Author Name Unknown Organization [facility] Address [address] [place] [address] Phone [phone] Care Team Providers Care Phys Asst Name Role Phone Neva Samayoa MD Primary Care Provider [phone] Reason for Visit * Reason Onset Date Comments Medication Pre-auth 12/12/2024 Mounjaro 5 M G/0.5ML Subcutaneous Solution Auto-injector (Tirzepatide) Encounter Details Date Type Department Care Team (Late st Contact Info) Description 12/12/2024 Telephone Family Practice [facility] [address] [place] [address] Neva Samayoa MD [address] [place] [address] Medication Pre-auth (Mounjaro 5 MG/0.5ML S... Allergies Active Allergy Reactions Criticality Noted Date [...] as of this encounter (statuses as of 12/15/2024) Medications Suvorexant 20 MG Oral Tablet Take [...] Active Additional Information Patient taking differently:650 mg [id number] PRN, Pain, Breakthrough, Fever >38C(100.5F), Reported on 11/13/2024 Metoprolol Succinate ER 25 MG Oral Tablet Extended Release 24 Hour (toPROL XL)Indications:His tory of ST elevation myocardial infarction (STEMI) Take 0.5 Tablets by mouth in the morning. 45 Tablet 3 01/06/20 24 Active Thyroid 30 MG Oral Tablet ([place] Thyroid)Indication s:Primary hypothyroidism one pill twice a [...] 24 Active Vitamin D (Ergocalciferol) 1.25 MG (31722 UT) Oral Capsule (Drisdol)Indicatio ns:Senile osteoporosis Take [...] waiting on ins for PA), Reported on 11/13/2024 documented as of this encounter (statuses as of 12/15/2024) Active Problems Problem Noted Date Diagnosed Date History of ST elevation myocardial infarction (S DANIEL) 04/04/2024 Dyslipidemia, goal LDL below 70 04/04/2024 HTN, goal below 130/80 04/04/2024 Primary hypothyroidism 04/04/2024 Coronary artery disease invo lving [place] coronary artery of [place] heart without angina pectoris 08/13/2023 Diabetes mellitus [...] as of this encounter (statuses as of 12/15/2024) Resolved Problems Problem Noted Date Diagnosed Date [...] as of this encounter (statuses as of 12/15/2024) Immunizations Name Administration Dates Next Due COVID-19 mRNA, LNP-s, No Pre serve, 2-Dose Series ([employer] [place]) 04/18/2021,03/28/2021 COVID-19, LNP-s, No Preserve , Shailesh-sucrose, Ages 12+ (Pfizer) 10/21/2021 Covid-19, Mrna, Lnp-s, Pf, B ivalent, 30 Mcg, IM, 12 yrs and above ([employer] [place]) 09/10/2022 Pneumococcal Conjugate Vaccine, 20-valent (Prevn ar20) [...] encounter Miscellaneous Notes * Telephone Encounter - Mao Hairston CPhT - 12/15/2024 9:02 AM EST Checked status of prior authorization for Mounjaro 5MG/0.5ML through CMM. Patient and pharmacy notified of approval. Approved until(if applicable): : 12/12/2025 Will call pharmacy when open Thank you, Bob Hairston ([facility]) Staff Consultant III [facility] ([facility]) 12/15/2024, 9:02 AM * Telephone Encounter - Nerissa Marshall CPhT - 12/13/2024 4:19 PM EST Submitted information in previous note via CM ([place]: [id number]).. Awaiting payer response. We will follow-up with insurance starting 12/15. Per [facility] request, if no decision is received from insurance by 12/15, we will route back to the [facility] after clarifying with the pharmacy that the claim is still not processing. Thank you, Nerissa Marshall Char Belt Operator [facility] 12/13/2024,4:19 PM * [facility] 12/12/2024 10:32 AM EST Please submit PA. Include the following documentation: 10/27/24 OV Please copy and paste the following information into PA form: Continuation of therapy - dose increase Pt has T2DM, HTN, CAD, dyslipidemia No contraindications for med What other drugs is there medical record documentation of therapeutic failure on, intolerance to, or contraindication to for this condition? Glipizide Jardiance metformin Jesus as urgent: No Diagnosis/ICD-10 Code(s): E11.9 If instantaneous decision is not received after submitting prior auth, please continue to follow upon this and route back to the [facility] pool if no decision is made by the insurance by 12/15, after clarifying with the pharmacy that the claim is still not processing. If PA is denied, please also route back to [facility] pool. Thank you, Kassy King PharmD Clinical Pharmacist [facility] ([facility]) [phone] 12/12/2024, 10:32 AM * Telephone Encounter - Mao Hairston CPhT - 12/12/2024 9:03 AM EST This is a new PA request. Upon review of this prior authorization request, I verified this request is appropriate. This is prescribed by a department for which [facility] is authorized to review prior authorizations This is not a duplicate encounter regarding the same prior authorization The patient is planning to use insurance The insurance information listed in previous note is correct and the plan that is requiring prior authorization The insurance does not cover either brand or generic forms of this script as written without prior authorization The insurance does not cover any NDCs of this script without prior authorization RX Estimate tool is unable to determine coverage of requested script Of note, there is nothing currently pending in [facility] for this request. Please advise how to proceed. Thank you, Bob Hairston ([facility]) Staff Consultant III [facility] ([facility]) 12/12/2024, 9:03 AM * Telephone Encounter - Samy Hankins PHARM Tech - 12/12/2024 8:52 AM EST Pt is asking high priority Patient calling to inform doctor that the patient's insurance will not pay for this medication without a completed prior authorization. Did confirm this information with the pharmacy. Pt's current insurance information is as follows: Patient name: Greg Gayle ID number: [id number] BIN number: [id number] PCN number: [facility] Group number: [id number] Subscriber name: Greg Gayle Primary or Secondary Insurance:Primary Medication: Mounjaro 5 MG/0.5ML Subcutaneous Solution Auto-injector (Tirzepatide) Reason for Request: pa required Pharmacy and phone number: [id number] [address] [facility] [phone] Rx plan and phone number: [facility] [phone] Is this a new medication for the patient? No. How did the patient obtain the medication on the lastfill? It was a different dose or frequency the last time it was filled. What alternative medications does the pharmacy have in stock?: . Pt is also asking for a discount card that she can use after the insurance coverage because she states even after insurance this medication is expensive for her. Thank you, Samy Hankins Transportation Inspector I [facility] ([facility]) 12/12/2024,8:53 AM documented in this encounter Plan of Treatment Upcoming Encounters Date Type Department Care Team (Late st Contact Info) Description 12/27/2024 11:00 AM EST Office Visit Otolaryngology [facility] [address] [place] [address] [address] Raffaele Morales PA-C [address] [place] [address] 01/26/2025 8:00 AM EST Office Visit Family Practice [facility] [place] [address] Neva Samayoa MD 200 [facility] [place] [address] 04/12/2025 10:30 AM EDT Nurse Only Rheumatology [facility] [address] [place] [phone] Pf, Nurse Rheum [facility] [place] [address] 04/18/2025 8:00 AM EDT Office Visit Cardiology, [facility] [address] [place] [address] Enedina Nogueira CRNP [address] [place] [address] Scheduled Procedures Name Priority Associated Diagnoses Date/Ti me COLONOSCOPY FLEXIBLE PROXIMA L DIAGNOSTIC Recall Family history of colon cancer Health Maintenance Due Date Last Done Comments DISCUSS TOBACCO CESSATION (REFER TO SMARTSET #3887) 1965 HIV Screening 1978 HPV/Co-Test 1993 Cologuard [...] exists Depression Monitoring 12/17/2024 12/17/2023 HbA1c 02/08/2025 08/11/2024, 03/22, 11/05/2023, Additional history exists Diabetic Eye Exam 04/04/2025 [...] D LEVEL ONCE IN A LIFETIME-USE SMARTSET# [id number] Completed 08/11/2024, 04/04/2024, 07/27/2023, Additional history exists [...] as of this encounter Visit Diagnoses Diagnosis Diabetes mellitus without complication (HCC) Type II or unspecified type diabetes mellitus without mention of complication, not stated as uncontrolled documented in this encounter Care Teams Phys Asst Relationship Specialty Start Date End Date Neva Samayoa MD [address] [place] [address] PCP - General Family Medicine 11/30/24 documented as of this encounter
--- OUTSIDE RECORDS SUMMARY | 2025-03-19 14:01 | External Medical Summary | Summary of Care ---
Author Name Unknown Organization [facility] Address [address] [place] [address] Phone [phone] Care Team Providers Care Barber Stylist Name Role Phone Neva Samayoa MD Primary Care Provider [phone] Reason for Visit * Reason Onset Date Comments Medication Pre-auth 12/12/2024 Mounjaro 5 M G/0.5ML Subcutaneous Solution Auto-injector (Tirzepatide) Encounter Details Date Type Department Care Team (Late st Contact Info) Description 12/12/2024 Telephone Family Practice [facility] [address] [place] [address] Neva Samayoa MD [address] [place] [address] Medication Pre-auth (Mounjaro 5 MG/0.5ML S... Allergies [...] Active Additional Information Patient taking differently:650 mg [id number] PRN, Pain, Breakthrough, Fever >38C(100.5F), Reported on 11/13/2024 Metoprolol Succinate ER 25 MG Oral Tablet Extended Release 24 Hour (toPROL XL)Indications:His tory of ST elevation myocardial infarction (STEMI) Take 0.5 Tablets by mouth in the morning. 45 Tablet 3 01/06/20 24 Active Thyroid 30 MG Oral Tablet ([place] Thyroid)Indication s:Primary hypothyroidism one pill twice a [...] 24 Active Vitamin D (Ergocalciferol) 1.25 MG (17025 UT) Oral Capsule (Drisdol)Indicatio ns:Senile osteoporosis Take [...] hypothyroidism 04/04/2024 Coronary artery disease invo lving [place] coronary artery of [place] heart without angina pectoris 08/13/2023 Diabetes mellitus [...] mRNA, LNP-s, No Pre serve, 2-Dose Series ([employer]) 04/18/2021,03/28/2021 COVID-19, LNP-s, No Preserve , Shailesh-sucrose, Ages 12+ (Pfizer) 10/21/2021 Covid-19, Mrna, Lnp-s, Pf, B ivalent, 30 Mcg, IM, 12 yrs and above ([employer]) 09/10/2022 Pneumococcal Conjugate Vaccine, 20-valent (Prevn ar20) [...] Encounter - Mao Hairston CPhT - 12/15/2024 10:25 AM EST Pharmacy states medication already filled and picked up by pt Thank you, Bob Hairston ([facility]) Blood Typer III [facility] 12/15/2024, 10:25 AM * Telephone Encounter - Mao Hairston CPhT - 12/15/2024 9:02 AM EST Checked status of prior authorization for Mounjaro 5MG/0.5ML through [facility]. Patient and pharmacy notified of approval. Approved until(if applicable): : 12/12/2025 Will call pharmacy when open Thank you, Bob Hairston ([facility]) Blood Typer III [facility] 12/15/2024, 9:02 AM * Telephone Encounter - Nerissa Marshall CPhT - 12/13/2024 4:19 PM EST Submitted information in previous note via CM (Stewart: [id number]).. Awaiting payer response. We will follow-up with insurance starting 12/15. Per [facility] request, if no decision is received from insurance by 12/15, we will route back to the [facility] after clarifying with the pharmacy that the claim is still not processing. Thank you, Nerissa Marshall Electrical Machine Builder [facility] 12/13/2024,4:19 PM * Telephone Encounter - Kassy King [facility] - 12/12/2024 10:32 AM EST Please submit [...] upon this and route back to the [facility] pool if no decision is made by the insurance by 12/15, after clarifying with the pharmacy that the claim is still not processing. If PA is denied, please also route back to [facility] pool. Thank you, Kassy King PharmD Clinical Pharmacist [facility] ([facility]) [phone] 12/12/2024, 10:32 AM * Telephone Encounter - Mao Hairston CPhT - 12/12/2024 9:03 AM EST This is a new [place] request. Upon review of this prior authorization request, I verified this request is appropriate. This is prescribed by a department for which [facility] is authorized to review prior [...] note, there is nothing currently pending in [facility] for this request. Please advise how to proceed. Thank you, Bob Hairston ([facility]) Blood Typer III [facility]) 12/12/2024, 9:03 AM * Telephone Encounter - Samy Hankins PHARM Tech - 12/12/2024 8:52 AM EST Pt is asking high priority Patient calling to inform doctor that the patient's insurance will not pay for this medication without a completed prior authorization. Did confirm this information with the pharmacy. Pt's current insurance information is as follows: Patient name: Greg Gayle ID number: [id number] BIN number: [id number] PCN number: [id number] Group number: [id number] Subscriber name: Greg Gayle Primary or Secondary Insurance:Primary Medication: Mounjaro 5 MG/0.5ML Subcutaneous Solution Auto-injector (Tirzepatide) Reason for Request: pa required Pharmacy and phone number: [id number] [address] [facility] [phone] Rx plan and phone number: [facility] [phone] Is this a new medication for the [...] expensive for her. Thank you, Samy Hankins Print Producer I [facility]) 12/12/2024,8:53 AM documented in this encounter Plan of Treatment Upcoming Encounters Date Type Department Care Team (Late st Contact Info) Description 12/27/2024 11:00 AM EST Office Visit Otolaryngology [facility] [address] [place] [address] Raffaele Morales PA-C [address] [place] [address] 01/26/2025 8:00 AM EST Office Visit Family Practice [facility] [place] [address] [place] [address] Neva Samayoa MD [address] [place] [address] 04/12/2025 10:30 AM EDT Nurse Only Rheumatology [facility] [address] [place] [phone] Pf, Nurse Rheum [address] [place] [address] 04/18/2025 8:00 AM EDT Office Visit Cardiology, [facility] [address] [place] [address] Enedina Nogueira CRNP [address] [place] [phone] Scheduled Procedures Name Priority Associated Diagnoses Date/Ti me COLONOSCOPY FLEXIBLE PROXIMA L DIAGNOSTIC Recall Family history of colon cancer Health Maintenance Due Date Last Done Comments DISCUSS TOBACCO CESSATION (REFER TO SMARTSET #6441) 1965 HIV Screening 1978 HPV/Co-Test 1993 Cologuard [...] D LEVEL ONCE IN A LIFETIME-USE SMARTSET# [id number] Completed 08/11/2024, 04/04/2024, 07/27/2023, Additional history exists [...] uncontrolled documented in this encounter Care Teams Barber Stylist Relationship Specialty Start Date End Date Neav Samayoa MD [address] [place] [address] PCP - General Family Medicine 11/30/24 documented as of this encounter
--- OUTSIDE RECORDS SUMMARY | 2025-03-19 14:01 | External Medical Summary | Summary of Care ---
Author Name Unknown Organization [facility] Address [address] [place] [address] Phone [phone] Care Team Providers Care Internet Marketing Executive Name Role Phone Neva Samayoa MD Primary Care Provider [phone] Reason for Visit * Reason Comments Cough Encounter Details Date Type Department Care Team (Late st Contact Info) Description 12/21/2024 1:00 PM EST Office Visit General Internal Medicine [facility] 200 [facility] [place] [address] Ava De Oliveira PA-C 200 [place] [address] Acute non-recurrent pansinusitis* Allergies Active Allergy Reactions Criticality Noted Date [...] Active Additional Information Patient taking differently:650 mg [id number] PRN, Pain, Breakthrough, Fever >38C(100.5F), Reported on 12/21/2024 Metoprolol Succinate ER 25 MG Oral Tablet Extended Release 24 Hour (toPROL XL)Indications:His tory of ST elevation myocardial infarction (STEMI) Take 0.5 Tablets by mouth in the morning. 45 Tablet 3 01/06/20 24 Active Thyroid 30 MG Oral Tablet ([place] Thyroid)Indication s:Primary hypothyroidism one pill twice a [...] 24 Active Vitamin D (Ergocalciferol) 1.25 MG (58855 UT) Oral Capsule (Drisdol)Indicatio ns:Senile osteoporosis Take [...] hypothyroidism 04/04/2024 Coronary artery disease invo lving [place] coronary artery of [place] heart without angina pectoris 08/13/2023 Diabetes mellitus [...] mRNA, LNP-s, No Pre serve, 2-Dose Series ([employer]) 04/18/2021,03/28/2021 COVID-19, LNP-s, No Preserve , Shailesh-sucrose, Ages 12+ (Pfizer) 10/21/2021 Covid-19, Mrna, Lnp-s, Pf, B ivalent, 30 Mcg, IM, 12 yrs and above ([employer]) 09/10/2022 Pneumococcal Conjugate Vaccine, 20-valent (Prevn ar20) [...] Sign Reading Time Taken Comments Blood Pressure 118/78 12/21/2024 12:56 PM EST Pulse 82 12/21/2024 12:56 PM EST Temperature 36.2 °C (97.1 °F) 12/21/2024 12:[address] Respiratory Rate - - Oxygen Saturation 98% 12/21/2024 12:56 PM EST Inhaled Oxygen Concentration - - Weight 62.2 kg (137 lb 1.6 oz) 12/21/2024 12:56 PM EST Height - - Body Mass Index 28.17 09/30/2024 10:43 AM EST documented in this encounter Progress Notes * Ava De Oliveira PA-C - 12/21/2024 1:05 PM EST Images from the original note were not included. History of Present Illness Greg Gayle is a 59 year old female that presents for Cough Cough This is a new problem. The current episode started 1 to 4 weeks ago (2 weeks ago). The problem has been unchanged. Associated symptoms include ear pain (left), nasal congestion, postnasal drip, rhinorrhea and a sore throat. Pertinent negatives include no chest pain, fever or shortness of breath. Nothing aggravates the symptoms. Risk factors for lung disease include smoking/tobacco exposure. She has tried rest (humidifier, honey, chamomile) for the symptoms. Review of Systems: See HPI for pertinent positives. All other review of systems is negative. Physical Exam Vitals: 12/21/24 1256 Temp: 97.1 °F (36.2 °C) Pulse: 82 SpO2: 98% BP: 118/78 Physical Exam Constitutional: General: She is not in acute distress. Appearance: She is not diaphoretic. HENT: Right Ear: Tympanic membrane, ear canal and external ear normal. Left Ear: Ear canal and external ear normal. A middle ear effusion is present. Tympanic membrane isnot injected, perforated or erythematous. Nose: Right Sinus: Maxillary sinus tenderness and frontal sinus tenderness present. Left Sinus: Maxillary sinus tenderness and frontal sinus tenderness present. Mouth/Throat: Mouth: Mucous membranes are moist. Pharynx: Oropharynx is clear. Posterior oropharyngeal erythema present. Cardiovascular: Rate and Rhythm: Normal rate and regular rhythm. Pulmonary: Effort: Pulmonary effort is normal. Breath sounds: Normal breath sounds. Abdominal: General: Bowel sounds are normal. Palpations: Abdomen is soft. Musculoskeletal: Cervical back: Normal range of motion and neck supple. Lymphadenopathy: Head: Left side of head: Preauricular adenopathy present. Skin: General: Skin is warm and dry. Neurological: General: No focal deficit present. Mental Status: She is alert. Mental status is at baseline. I have reviewed the following results: Assessment and Plan Acute non-recurrent pansinusitis Augmentin and burst of prednisone for sinusitis. Daily yogurt/probiotic encouraged while taking theantibiotic. Wrap-Up Follow Up: Return if symptoms worsen or fail to improve. Time: I spent a total of 20-29 minutes (exact time 22 mins) on the date of service in preparation, delivery, and documentation of the care provided to Greg Gayle excluding any time spent in the performance of separately billed services. documented in this encounter Nursing Notes * Lillian Kendrick CCMA - 12/21/2024 12:57 PM EST Pt is here today for not feeling well pt stated the sickness started two weeks ago pt has sore throat and left ear, headache pt said no fevers pt is not taking anything OTC documented in this encounter Plan of Treatment Upcoming Encounters Date Type Department Care Team (Late st Contact Info) Description 12/27/2024 11:00 AM EST Office Visit [facility] [place] [address] Raffaele Morales PA-C [address] [place] [address] 01/26/2025 8:00 AM EST Office [facility] [address] [facility] [place] [address] Neva Samayoa MD 200 [facility] [place] [address] 04/12/2025 10:30 AM EDT Nurse Only Rheumatology [facility] [address] [place] [phone] Taz, Nurse Andreina [address] [place] [address] 04/18/2025 8:00 AM EDT Office Visit Cardiology, [facility] [address] [place] [address] Enedina Nogueira CRNP [address] [facility] [place] [address] Scheduled Procedures Name Priority Associated Diagnoses Date/Ti me COLONOSCOPY FLEXIBLE PROXIMA L DIAGNOSTIC Recall Family history of colon cancer Health Maintenance Due Date Last Done Comments DISCUSS TOBACCO CESSATION (REFER TO SMARTSET #3140) 1965 HIV Screening 1978 HPV/Co-Test 1993 Cologuard [...] D LEVEL ONCE IN A LIFETIME-USE SMARTSET# [id number] Completed 08/11/2024, 04/04/2024, 07/27/2023, Additional history exists [...] as of this encounter Visit Diagnoses Diagnosis Acute non-recurrent pansinusitis- Primary documented in this encounter Care Teams Internet Marketing Executive Relationship Specialty Start Date End Date Neva Samayoa MD [address] [place] [address] PCP - General Family Medicine 11/30/24 documented as of this encounter
--- OUTSIDE RECORDS SUMMARY | 2025-03-19 14:01 | External Medical Summary | Summary of Care ---
Author Name Unknown Organization [facility] Address [address] [place] [address] Phone [phone] Care Team Providers Care Electric Tripper Machine Operator Name Role Phone Neva Samayoa MD Primary Care Provider Reason for Visit * Reason Comments eRx-Medication Refill Encounter Details Date Type Department Care Team (Late st Contact Info) Description 01/04/2025 Refill Cardiology, [facility] [address] [place] [address] Leticia Arguello CRNP [address] [facility] [address] Allergies Active Allergy Reactions Criticality Noted Date [...] as of this encounter (statuses as of 01/04/2025) Medications Suvorexant 20 MG Oral Tablet Take [...] Active Additional Information Patient taking differently:650 mg [id number] PRN, Pain, Breakthrough, Fever >38C(100.5F), Reported on 12/21/2024 Metoprolol Succinate ER 25 MG Oral Tablet Extended Release 24 Hour (toPROL XL)Indications:Hi story of ST elevation myocardial infarction (STEMI) Take 0.5 Tablets by mouth in the morning. 45 Tablet 3 024 Active Thyroid 30 MG Oral Tablet ([place] Thyroid)Indicatio ns:Primary hypothyroidism one pill twice a day 180 Tablet 3 024 Active Losartan Potassium 25 MG Oral Tablet (Cozaar)Indicatio ns:HTN, goal below 130/80 Take 0.5 Tablets by mouth in the morning. 45 Tablet 3 024 Active Vitamin D (Ergocalciferol) 1.25 MG (11118 UT) Oral Capsule (Drisdol)Indicati ons:Senile osteoporosis Take [...] on ins for [place]), Reported on 12/21/2024 Atorvastatin Calcium 80 MG Oral Tablet (Lipitor) TAKE 1 TABLET BY MOUTH EVERY DAY IN THE MORNING 90 Tablet 1 025 Active Atorvastatin Calcium 80 MG Oral Tablet (Lipitor) TAKE 1 TABLET BY MOUTH EVERY DAY IN THE MORNING 90 Tablet 024 2024 Discontinued documented as of this encounter (statuses as of 01/04/2025) Active Problems Problem Noted Date Diagnosed Date History of ST elevation myocardial infarction (S DANIEL) 04/04/2024 Dyslipidemia, goal LDL below 70 04/04/2024 HTN, goal below 130/80 04/04/2024 Primary hypothyroidism 04/04/2024 Coronary artery disease invo lving [place] coronary artery of [place] heart without angina pectoris 08/13/2023 Diabetes mellitus [...] as of this encounter (statuses as of 01/04/2025) Resolved Problems Problem Noted Date Diagnosed Date [...] as of this encounter (statuses as of 01/04/2025) Immunizations Name Administration Dates Next Due COVID-19 mRNA, LNP-s, No Pre serve, 2-Dose Series ([employer]) 04/18/2021,03/28/2021 COVID-19, LNP-s, No Preserve , Shailesh-sucrose, Ages 12+ ([employer]) 10/21/2021 Covid-19, Mrna, Lnp-s, Pf, B ivalent, 30 Mcg, IM, 12 yrs and above ([employer]) 09/10/2022 Pneumococcal Conjugate Vaccine, 20-valent (Prevn [...] encounter Miscellaneous Notes * Telephone Encounter - Ruben Villafana [facility] - 01/04/2025 3:35 PM EST Signed Prescriptions: Disp Refills Atorvastatin Calcium 80 MG Oral Tablet (Li*90 Tab*1 Sig: TAKE 1 TABLET BY MOUTH EVERY DAY IN THE MORNINGAuthorizing Provider: ABBY GARCIA User: RUBEN VILLAFANA * Telephone Encounter - John Griffith - 01/04/2025 5:01 AM ESTPending Prescriptions: Disp Refills Atorvastatin Calcium 80 MG Oral Tablet [Ph*90 Tab*0 Sig: TAKE 1 TABLET BY MOUTH EVERY DAY IN THE MORNING * Telephone Encounter - John Griffith - 01/04/2025 4:59 AM EST Did you pend patient's preferred pharmacy and medication before forwarding?yes Pharmacy: [id number] [place] Pending Prescriptions: Disp Refills Atorvastatin Calcium 80 MG Oral Tablet (L*90 Tab*0 Sig: TAKE 1 TABLET BY MOUTH EVERY DAY IN THE MORNING Last Visit: 11/13/2024 (in office), Visit date not found (telemedicine) Next Visit: 04/18/2025 If no future appointments scheduled, and last appointment is greater than a year ago, please schedule patient for a follow-up appointment Last date the medication was ordered: 09/05/2024 Is this request for a controlled substance?No Urine Drug Screen: Results for orders placed or performed in visit on 02/27/19 OPIOIDS/BENZO COMPLIANCE MONITORING W/INTERP Result Value Pain Management Interpretation (NOTE) URINE DRUG SCREEN RESULT Amphetamine NEGATIVE Barbiturates NEGATIVE Benzodiazepines REFER TO CONFIRMATION RESULT (A) THC-COOH Confirmation, U NEGATIVE Cocaine Metabolite NEGATIVE METHADONE METABOLITE NEGATIVE Morphine / Codeine NEGATIVE OXYCODONE NEGATIVE COMMENT THE ABOVE SCREENING RESULTS ARE PRESUMPTIVE AND CAN ONLY BE USED FOR MEDICAL PURPOSES. CONFIRMATORY TESTING IS AVAILABLE UPON REQUEST. Cutoff Concentration URINE VALID INTERP NORMAL CREATININE VANADNA 30 *Note: Due to a large number of results and/or encounters for the requested time period, some results have not been displayed. A complete set of results can be found in Results Review. Patient Phone Numbers Labs: Lab Results Component Value Date/Time CREAT 1.0 08/11/2024 08:33 AM CREAT 0.9 05/07/2020 03:35 PM POTASSIUM 4.4 08/11/2024 08:33 AM POTASSIUM 4.1 05/07/2020 03:35 PM TSH 0.56 04/04/2024 11:24 AM TSH 1.45 09/14/2015 08:56 AM LDL 70 08/11/2024 08:33 AM LDL 156 (H) 09/14/2015 08:56 AM ALT 20 04/21/2024 03:01 PM ALT 22 09/30/2018 01:18 PM HGBA1C 6.3 (H) 12/21/2024 01:28 PM documented in this encounter Plan of Treatment Upcoming Encounters Date Type Department Care Team (Late st Contact Info) Description 01/19/2025 8:00 AM EST Office Visit Otolaryngology [facility] [address] [place] [address] Thang Olson, 132 [facility] [place] [address] 01/26/2025 8:00 AM EST Office Visit Family Practice [facility] [address] [facility] [place], [place] [address] Neva Samayoa MD 200 [facility] [place] [address] 04/12/2025 10:30 AM EDT Nurse Only Rheumatology [facility] [address] [facility] [place] [phone] Taz Nurse [place] [address] [place] [address] 04/18/2025 8:00 AM EDT Office Visit Cardiology, [facility] [address] [facility] [place] [address] Enedina Nogueira CRNP [address] [place] [address] [place] [address] Scheduled Procedures Name Priority Associated Diagnoses Date/Ti me COLONOSCOPY FLEXIBLE PROXIMA L DIAGNOSTIC Recall Family history of colon cancer Health Maintenance Due Date Last Done Comments DISCUSS TOBACCO CESSATION (REFER TO SMARTSET #7541) 1965 HIV Screening 1978 HPV/Co-Test 1993 Cologuard [...] D LEVEL ONCE IN A LIFETIME-USE SMARTSET# [id number] Completed 08/11/2024, 04/04/2024, 07/27/2023, Additional history exists [...] filedocumented as of this encounter Care Teams Electric Tripper Machine Operator Relationship Specialty Start Date End Date Neva Samayoa MD [address] [place] [address] PCP - General Family Medicine 11/30/24 documented as of this encounter
--- OUTSIDE RECORDS SUMMARY | 2025-03-19 14:02 | External Medical Summary | Summary of Care ---
Author Name Unknown Organization [facility] Address [address] [place] [address] Phone [phone] Care Team Providers Care Information Analyst Name Role Phone Trace Guan DO Primary Care Provider [phone] Reason for Visit * Reason Comments eRx-Medication Refill Encounter Details Date Type Department Care Team (Late st Contact Info) Description 10/10/2024 Refill Family Practice [facility] [address] [place] [address] Trace Guan DO [address] [facility], [place] [address] Allergies Active Allergy Reactions Criticality Noted Date [...] as of this encounter (statuses as of 10/12/2024) Medications Suvorexant 20 MG Oral Tablet Take 1 Tab by mouth at bedtime. Active busPIRone (BUSPAR) 15 MG Tablet Take 1 Tablet by mouth in the morning and 1 Tablet at noon and 1 Tablet before bedtime. Active LORazepam 1 MG Oral Tablet (Ativan) TAKE 1/2 TABLET BY MOUTH 4 TIMES A DAY NEEDED FOR ANXIETY 022 Active Lancets Use to check blood sugars daily while fasting E11.9 100 Each 11 023 Active Blood Gluc Meter Disp-Strips Device Use to check blood sugars daily while fasting E11.9 1 Each 023 Active OneTouch Verio Reflect w/Device Kit USE TO CHECK BLOOD SUGARS DAILY WHILE FASTING E11.9 1 Kit 023 Active Glucose Blood In Vitro Strip Use [...] Active Additional Information Patient taking differently:650 mg [id number] PRN, Pain, Breakthrough, Fever >38C(100.5F), Reported on 09/30/2024 Metoprolol Succinate ER 25 MG Oral Tablet Extended Release 24 Hour (toPROL XL)Indications:Hi story of ST elevation myocardial infarction (STEMI) Take 0.5 Tablets by mouth in the morning. 45 Tablet 3 024 Active Ciclopirox 8 % External SolutionIndicatio ns:Onychomycosis Apply over nail and surrounding skin. Apply daily over previous coat. After seven (7) days, may remove with alcohol and continue cycle. 6.6 mL 2 024 Active glipiZIDE 5 MG Oral Tablet (Glucotrol)Indica tions:Diabetes mellitus without complication (HCC) Take up to 2 pills twice daily with meals 180 Tablet 3 024 Active Additional Information Patient not taking.Reported on 09/30/2024 Thyroid 30 MG Oral Tablet (Atalissa Thyroid)Indicatio ns:Primary hypothyroidism one pill twice a day 180 Tablet 3 Active Losartan Potassium 25 MG Oral Tablet (Cozaar)Indicatio ns:HTN, goal below 130/80 Take 0.5 Tablets by mouth in the morning. 45 Tablet 3 024 Active Atorvastatin Calcium 80 MG Oral Tablet (Lipitor) TAKE 1 TABLET BY MOUTH EVERY DAY IN THE MORNING 90 Tablet 024 Active Vitamin D (Ergocalciferol) 1.25 MG (13556 UT) Oral Capsule (Drisdol)Indicati ons:Senile osteoporosis Take 1 Capsule by mouth once a week. 12 Capsule 3 024 2024 Active Mounjaro 2.5 MG/0.5ML Subcutaneous Solution Auto-injector Inject 2.5 mg under the skin once a week. 024 Active Cetirizine HCl 10 MG Oral Tablet [...] EVERY MORNING 90 Capsule 3 024 Active Linzess 290 MCG Oral Capsule (linaCLOtide) Take 1 Capsule by mouth in the morning. 90 Capsule 3 023 2023 Discontinued documented as of this encounter (statuses as of 10/12/2024) Active Problems Problem Noted Date Diagnosed Date [...] isorder 05/23/2018 Chronic bilateral back pain 05/23/2018 Intractable vomiting with nausea 11/04/2017 PTSD (post-traumatic stress disorder) 11/04/2017 Insomnia 11/04/2017 H. pylori infection 11/04/2017 Senile osteoporosis 07/29/2017 Controlled substance agreement signed 01/01/2016 Vitamin D insufficiency 11/11/2014 Other ventral hernia without mention of obstruction or gangrene 10/29/2003 Irritable bowel syndrome 09/24/2003 documented as of this encounter (statuses as of 10/12/2024) Resolved Problems Problem Noted Date Diagnosed Date Resolved Date Encounter for preprocedure s creening laboratory testing for COVID-19 12/12/2020 10/14/20 Recurrent major depressive d isorder, in remission 11/04/2017 05/23/2018 Closed compression fracture of L2 vertebra 09/29/2017 05/23/2018 Overview (02/22/2019): ICD-10 update of inactive term Benzodiazepine abuse in remission 06/01/2016 10/03/2018 Compression fracture of lumbar vertebra 10/31/2015 09/29/2017 Contusion of rib 10/31/2015 09/16/2018 Back pain 10/31/2015 05/23/2018 Osteoporosis 09/24/2014 07/29/2017 Margaret-menopausal 11/02/2012 01/17/2021 ADVANCE DIRECTIVE INFORMATION 10/06/2009 08/13/2017 Overview (10/06/2009): No, Advance Directive brochure offered , patient declined. documented as of this encounter (statuses as of 10/12/2024) Immunizations Name Administration Dates Next Due COVID-19 mRNA, LNP-s, No Pre serve, 2-Dose Series ([employer]) 04/18/2021,03/28/2021 COVID-19, LNP-s, No Preserve , Shailesh-sucrose, Ages 12+ (Pfizer) 10/21/2021 Covid-19, Mrna, Lnp-s, Pf, B ivalent, 30 Mcg, IM, 12 yrs and above ([employer]) 09/10/2022 Pneumococcal Conjugate Vaccine, 20-valent (Prevn ar20) [...] encounter Miscellaneous Notes * Telephone Encounter - Trace Guan DO - 10/12/2024 12:29 PM ESTSigned Prescriptions: Disp Refills Linzess 290 MCG Oral Capsule (linaCLOtide) 90 Cap*3 Sig: TAKE 1 CAPSULE BY MOUTH EVERY MORNING Authorizing Provider: TRACE GUAN * Telephone Encounter - Pradeep Neil [facility] - 10/12/2024 7:30 AM ESTPending Prescriptions: Disp Refills Linzess 290 MCG Oral Capsule [Pharmacy Med*90 Cap*3 Sig: TAKE 1 CAPSULE BY MOUTH EVERY MORNING * Telephone Encounter - Pradeep Neil [facility] - 10/12/2024 7:29 AM EST Pending Prescriptions: Disp Refills Linzess 290 MCG Oral Capsule [Pharmacy Med*90 Cap*3 Sig: TAKE 1 CAPSULE BY MOUTH EVERY MORNING 08/11/2024 (in office), 05/08/2020 (telemedicine) 11/14/2024 If no future appointments scheduled, and last appointment is greater than a year ago, please schedule patient for a follow-up appointment Last date the medication was ordered: 04/23/23 Pharmacy: [id number] [facility] Is this request for a controlled substance?No Urine Drug Screen: Results for orders placed or performed in visit on 02/27/19 OPIOIDS/BENZO COMPLIANCE MONITORING W/INTERP Result Value COMPLIANCE INTERP (NOTE) URINE DRUG SCREEN RESULT Amphetamine NEGATIVE Barbiturates NEGATIVE Benzodiazepines REFER TO CONFIRMATION RESULT (A) Cannabinoids NEGATIVE Cocaine Metabolite NEGATIVE METHADONE METABOLITE NEGATIVE [...] PM ALT 22 09/30/2018 01:18 PM HGBA1C 5.9 (H) 08/11/2024 08:33 AM * Telephone Encounter - John Griffith - 10/10/2024 7:25 PM ESTPending Prescriptions: Disp Refills Linzess 290 MCG Oral Capsule [Pharmacy Med*90 Cap*3 Sig: TAKE 1 CAPSULE BY MOUTH EVERY MORNING * Telephone Encounter - Kai Dimas, veterinary meat inspector - 10/10/2024 3:31 PM EST Did you pend patient's preferred pharmacy and medication before forwarding?yes Pharmacy: [id number] [facility] Pending Prescriptions: Disp Refills Linzess 290 MCG Oral Capsule (linaCLOtide*90 Cap*3 Sig: TAKE 1 CAPSULE BY MOUTH EVERY MORNING Last Visit: 08/11/2024 (in office), 05/08/2020 (telemedicine) Next Visit: 11/14/2024 If no future appointments scheduled, and last appointment is greater than a year ago, please schedule patient for a follow-up appointment Last date the medication was ordered: 04/23/2023 Is this request for a controlled substance?No Urine Drug Screen: Results for orders placed or performed in visit on 02/27/19 OPIOIDS/BENZO COMPLIANCE MONITORING W/INTERP Result Value COMPLIANCE INTERP (NOTE) URINE DRUG SCREEN RESULT Amphetamine NEGATIVE Barbiturates NEGATIVE Benzodiazepines REFER TO CONFIRMATION RESULT (A) Cannabinoids NEGATIVE Cocaine Metabolite NEGATIVE METHADONE METABOLITE NEGATIVE [...] PM ALT 22 09/30/2018 01:18 PM HGBA1C 5.9 (H) 08/11/2024 08:33 AM documented in this encounter Plan of Treatment Upcoming Encounters Date Type Department Care Team (Late st Contact Info) Description 11/13/2024 8:00 AM EST Office Visit Cardiology, [facility] [address] [place] [address] Seth Oliver, [address] [place] [address] 11/14/2024 8:00 AM EST Office Visit Family Practice [facility] [address] [facility] [place] [address] Neva Samayoa MD [address] [facility] [place] [address] 04/12/2025 10:30 AM EDT Nurse Only Rheumatology [place] [address] [address] [place] [address] Pf, Nurse Rheum [facility] [address] [place] [address] Scheduled Procedures Name Priority Associated Diagnoses Date/Ti me COLONOSCOPY FLEXIBLE PROXIMA L DIAGNOSTIC Recall Family history of colon cancer Health Maintenance Due Date Last Done Comments DISCUSS TOBACCO CESSATION (REFER TO SMARTSET #6433) 1963 HIV Screening 1978 HPV/Co-Test 1993 Cologuard [...] 06/19/2021, 06/10/2016, Additional history exists Pneumococcal Vaccine: Pediatrics (0 to 5 Years) and At-Risk Patients (6 to 64 Years) Completed 12/23/2022, 03/19/2009 VITAMIN D LEVEL ONCE IN A LIFETIME-USE SMARTSET# [id number] Completed 08/11/2024, 04/04/2024, 07/27/2023, Additional history exists [...] filedocumented as of this encounter Care Teams Information Analyst Relationship Specialty Start Date End Date Trace Guan DO [address] [place] [address] PCP - General Family Medicine 06/11/17 documented as of this encounter
--- OUTSIDE RECORDS SUMMARY | 2025-03-19 14:02 | External Medical Summary | Summary of Care ---
Author Name Unknown Organization [facility] Address [address] [place] [address] Phone [phone] Care Team Providers Care Cement Block Maker Name Role Phone Paco Luis DO Primary Care Provider [phone] Reason for Visit * Reason Comments Re-Check Encounter Details Date Type Department Care Team (Late st Contact Info) Description 10/27/2024 8:20 AM EST Office Visit Family Practice [facility] [address] [place] [address] Neva Samayoa MD [address] [place] [address] Diabetes mellitus without complication (HCC)*; Dyslipidemia, goal LDL below 70; HTN, goal below 130/80; Coronary artery disease involving dot lake coronary artery of [place] lake heart without angina pectoris; History of ST elevation myocardial infarction (STEMI); Acute ear pain, bilateral Allergies Active Allergy Reactions Criticality Noted Date [...] as of this encounter (statuses as of 10/27/2024) Medications Suvorexant 20 MG Oral Tablet Take [...] Active Additional Information Patient taking differently:650 mg [id number] PRN, Pain, Breakthrough, Fever >38C(100.5F), Reported on 10/27/2024 Metoprolol Succinate ER 25 MG Oral Tablet [...] continue cycle. 6.6 mL 2 024 Active Thyroid 30 MG Oral Tablet (Ferrum Thyroid)Indicatio ns:Primary hypothyroidism one pill twice a day 180 Tablet 3 024 Active Losartan Potassium 25 MG Oral Tablet (Cozaar)Indicatio ns:HTN, goal below 130/80 Take 0.5 Tablets by mouth in the morning. 45 Tablet 3 Active Atorvastatin Calcium 80 MG Oral Tablet (Lipitor) TAKE 1 TABLET BY MOUTH EVERY DAY IN THE MORNING 90 Tablet 024 Active Vitamin D (Ergocalciferol) 1.25 MG (67049 UT) Oral Capsule (Drisdol)Indicati ons:Senile osteoporosis Take [...] week. 2 mL 11 024 2024 Active glipiZIDE 5 MG Oral Tablet (Glucotrol)Indica tions:Diabetes mellitus without complication (HCC) Take up to 2 pills twice daily with meals 180 Tablet 3 024 2023 Discontinued Mounjaro 2.5 MG/0.5ML Subcutaneous Solution Auto-injector Inject 2.5 mg under the skin once a week. 024 2023 Discontinued Amoxicillin-Pot Clavulanate 875-125 MG Oral Tablet (Augmentin) Take 1 Tablet by mouth in the morning and 1 Tablet before bedtime. Do all this for 10 days. 20 Tablet 024 2023 Discontinued documented as of this encounter (statuses as of 10/27/2024) Active Problems Problem Noted Date Diagnosed Date History of ST elevation myocardial infarction (S DANIEL) 04/04/2024 Dyslipidemia, goal LDL below 70 04/04/2024 HTN, goal below 130/80 04/04/2024 Primary hypothyroidism 04/04/2024 Coronary artery disease invo lving dot lake coronary artery of dot lake heart without angina pectoris 08/13/2023 Diabetes mellitus [...] as of this encounter (statuses as of 10/27/2024) Resolved Problems Problem Noted Date Diagnosed Date [...] as of this encounter (statuses as of 10/27/2024) Immunizations Name Administration Dates Next Due COVID-19 [...] Days Cigarettes 0.3 36 Smokeless Tobacco: Never Tobacco Cessation:Ready to Q uit: Not Asked; Counseling Given: Not Answered Alcohol Use Standard Drinks/Week Comments No 0 [...] Sign Reading Time Taken Comments Blood Pressure 120/74 10/27/2024 8:27 AM EST Pulse 94 10/27/2024 8:27 AM EST Temperature 36 °C (96.8 °F) 10/27/2024 8:27 AM EST Respiratory Rate 16 10/27/2024 8:27 AM EST Oxygen Saturation 98% 10/27/2024 8:27 AM EST Inhaled Oxygen Concentration - - Weight 61.3 kg (135 lb 1.9 oz) 10/27/2024 8:27 A M EST Height - - Body Mass Index 27.76 09/30/2024 10:43 AM EST documented in this encounter Progress Notes * Neva Samayoa MD - 10/27/2024 8:31 AM EST Subjective Chief Complaint Patient presents with Re-Check HPI: Greg Gayle is a 59 year old female. Patient is unaccompanied. The following issues wereaddressed today: Patient with T2DM, hypothyroidism, CAD with history of STEMI, hypertension, hyperlipidemia presentstoday for routine follow-up. Recent Hgb A1c improved. She was able to start Mounjaro about 5 weeks ago and has since stopped glipizide. She has not had any side effects from it. Has been trying to eat better at home. Has noticeda few pounds of weight loss. We also reviewed lipid panel from July. LDL is at goal. She is on atorvastatin 80mg. Sees cardiology soon. She has been holding her Brilinta since a severe nosebleed recently. Has had bilateral ear pain since visiting family over the holidays. Review of Systems: See HPI Objective BP 120/74 | Pulse 94 | Temp 96.8 °F (36 °C) (Tympanic) | Resp 16 | Wt 135 lb 1.9 oz (61.3 kg) | LMP 11/02/2013 | SpO2 98% | BMI 27.76 kg/m² | BSA 1.59 m² Wt Readings from Last 3 Encounters: 10/27/24 135 lb 1.9 oz (61.3 kg) 09/30/24 135 lb 12.8 oz (61.6 kg) 09/12/24 138 lb (62.6 kg) BP Readings from Last 3 Encounters: 10/27/24 120/74 09/30/24 108/58 09/12/24 108/58 General: Well-appearing, no acute distress Ears: External ear unremarkable, canals normal and tympanic membranes clear bilaterally Neurological: Alert and oriented, no focal deficits noted Psychiatric: Appropriate mood and affect Hemoglobin AIC Results: Lab Results Component Value Date/Time HEMOGLOBIN A1C - [facility] 5.9 (H) 08/11/2024 08:33 AM HEMOGLOBIN A1C - [facility] 6.4 (H) 04/04/2024 11:24 AM HEMOGLOBIN A1C - [facility] 5.9 (H) 11/05/2023 10:46 AM Lipid Panel Results: Results for orders placed or performed in visit on 08/11/24 LIPID PANEL WITH DIRECT LDL IF TG IS HIGH Result Value Ref Range Triglycerides 191 (H) <=174 mg/dL Cholesterol 158 <200 mg/dL HDL Cholesterol 50 >49 mg/dL Non-HDL Cholesterol 108 <=159 mg/dL LDL Cholesterol 70 <=129 mg/dL Assessment & Plan 1. Diabetes mellitus without complication (HCC) Hgb A1c is improved. Will increase dose of Mounjaro from 2.5mg to 5mg weekly. Discussed it will likely need a new prior auth. Recheck Hgb A1c 11/10/24 or after. Continue diet and exercise. - Mounjaro 5 MG/0.5ML Subcutaneous Solution Auto-injector (Tirzepatide); Inject 5 mg under the skinonce a week. Dispense: 2 mL; Refill: 11 - HEMOGLOBIN A1C; Future 2. Dyslipidemia, goal LDL below 70 Well-controlled. LDL at goal. Continue atorvastatin 80mg. 3. HTN, goal below 130/80 Well-controlled. Continue losartan 25mg, metoprolol succinate 12.5mg daily. 4. Coronary artery disease involving dot lake coronary artery of [place] heart without angina pectoris 5. History of ST elevation myocardial infarction (STEMI) Stable. Continue statin, ASA, beta-rose. 6. Acute ear pain, bilateral Reassured examination normal. Return in about 3 months (around 01/25/2025) for routine follow-up. This note was electronically signed by Neva Samayoa MD documented in this encounter Nursing Notes * Selma Dale LPN - 10/27/2024 8:25 AM EST Greg Gayle presents for 3 month recheck. Medications & HM reviewed. Would like ears checked. Grandchildren were recently sick and her ears have been bothersome. documented in this encounter Plan of Treatment Upcoming Encounters Date Type Department Care Team (Late st Contact Info) Description 11/13/2024 8:00 AM EST Office Visit Cardiology, [facility] [address] [place] [address] Seth Oliver, [address] [place] [address] 01/26/2025 8:00 AM EST Office Visit Family Practice [facility] [address] [facility] [place] [address] Neva Samayoa MD [address] [facility] [place] [address] 04/12/2025 10:30 AM EDT Nurse Only Rheumatology [address] [place] [address] Pf, Nurse Rheum [address] [place] [address] [place] [address] Scheduled Orders Name Type Priority Associated Diagnoses Orde r Schedule HEMOGLOBIN A1C Lab Routine Diabetes mellitus without complication (HCC) Expected: 11/13/2024 (Approximate), Expires: 10/27/2025 Scheduled Procedures Name Priority Associated Diagnoses Date/Ti me COLONOSCOPY FLEXIBLE PROXIMA L DIAGNOSTIC Recall Family history of colon cancer Health Maintenance Due Date Last Done Comments DISCUSS TOBACCO CESSATION (REFER TO SMARTSET #2975) 1965 HIV Screening 1978 HPV/Co-Test 1993 Cologuard [...] D LEVEL ONCE IN A LIFETIME-USE SMARTSET# [id number] Completed 08/11/2024, 04/04/2024, 07/27/2023, Additional history exists [...] Unspecified essential hypertension Coronary artery disease involving [place] coronary artery of [place] heart without angina pectoris History of ST elevation myocardial infarction (STEMI) Old myocardial infarction Acute ear pain, bilateral documented in this encounter Care Teams Cement Block Maker Relationship Specialty Start Date End Date Paco Luis DO [address] [place] [address] PCP - General Family Medicine 06/11/17 documented as of this encounter"
--- OUTSIDE RECORDS SUMMARY | 2025-03-19 14:02 | External Medical Summary | Summary of Care ---
Author Name Unknown Organization [facility] Address [address] [place] [address] Phone [phone] Care Team Providers Care Hay Stacker Name Role Phone Neva Samayoa MD Primary Care Provider [phone] Encounter Details Date Type Department Care Team (Late st Contact Info) Description 12/14/2024 Population Health External Data Unspecified Department Allergies Active Allergy Reactions Criticality Noted Date [...] as of this encounter (statuses as of 12/14/2024) Medications Suvorexant 20 MG Oral Tablet Take [...] needed (abdominal cramping). 270 Tablet 1 04/23/20 Active QUEtiapine Fumarate 300 MG Oral Tablet (SEROquel) Take 1 Tablet by mouth at bedtime. 07/23/20 Active Acetaminophen ER 650 MG Oral Tablet Extended Release (Tylenol 8 Hour)Indications:H ematoma of groin, subsequent encounter,S/P cardiac cath Take 1 Tablet by mouth every 6 hours. 08/10/20 Active Additional Information Patient taking differently:650 mg [id number] PRN, Pain, Breakthrough, Fever >38C(100.5F), Reported on 11/13/2024 Metoprolol Succinate ER 25 MG Oral Tablet Extended Release 24 Hour (toPROL XL)Indications:His tory of ST elevation myocardial infarction (STEMI) Take 0.5 Tablets by mouth in the morning. 45 Tablet 3 01/06/20 24 Active Thyroid 30 MG Oral Tablet (Ladora Thyroid)Indication s:Primary hypothyroidism one pill twice a [...] 24 Active Vitamin D (Ergocalciferol) 1.25 MG (06495 UT) Oral Capsule (Drisdol)Indicatio ns:Senile osteoporosis Take [...] as of this encounter (statuses as of 12/14/2024) Active Problems Problem Noted Date Diagnosed Date History of ST elevation myocardial infarction (S DANIEL) 04/04/2024 Dyslipidemia, goal LDL below 70 04/04/2024 HTN, goal below 130/80 04/04/2024 Primary hypothyroidism 04/04/2024 Coronary artery disease invo lving [place] coronary artery of [place] heart without angina pectoris 08/13/2023 Diabetes mellitus [...] as of this encounter (statuses as of 12/14/2024) Resolved Problems Problem Noted Date Diagnosed Date [...] as of this encounter (statuses as of 12/14/2024) Immunizations Name Administration Dates Next Due COVID-19 mRNA, LNP-s, No Pre serve, 2-Dose Series ([employer]) 04/18/2021,03/28/2021 COVID-19, LNP-s, No Preserve , Shailesh-sucrose, Ages 12+ ([employer]) 10/21/2021 Covid-19, Mrna, Lnp-s, Pf, B ivalent, 30 Mcg, IM, 12 yrs and above ([employer]) 09/10/2022 Pneumococcal Conjugate Vaccine, 20-valent (Prevn ar20) [...] 12/27/2024 11:00 AM EST Office Visit Otolaryngology [facility] [address] [place] [address] Raffaele Morales PA-C [address] [place] [address] 01/26/2025 8:00 AM EST Office Visit Family Practice [facility] [address] [facility] [place] [address] Neva Samayoa MD [address] [facility] [place] [address] 04/12/2025 10:30 AM EDT Nurse Only Rheumatology [facility] [address] [facility] [phone] Pf, Nurse Rheum [address] [facility] [place] [address] 04/18/2025 8:00 AM EDT Office Visit Cardiology, [facility] [address] [place] [address] Enedina Nogueira CRNP [address] [facility] [place], [place] [id number] Scheduled Procedures Name Priority Associated Diagnoses Date/Ti me COLONOSCOPY FLEXIBLE PROXIMA L DIAGNOSTIC Recall Family history of colon cancer Health Maintenance Due Date Last Done Comments DISCUSS TOBACCO CESSATION (REFER TO SMARTSET #9887) 1965 HIV Screening 1978 HPV/Co-Test 1993 Cologuard [...] D LEVEL ONCE IN A LIFETIME-USE SMARTSET# [id number] Completed 08/11/2024, 04/04/2024, 07/27/2023, Additional history exists [...] filedocumented as of this encounter Care Teams Hay Stacker Relationship Specialty Start Date End Date Neva Samayoa MD [address] [place] [address] PCP - General Family Medicine 11/30/24 documented as of this encounter
--- OUTSIDE RECORDS SUMMARY | 2025-03-19 14:02 | External Medical Summary | Summary of Care ---
Author Name Unknown Organization [facility] Address [address] [place] [address] Phone [phone] Care Team Providers Care Hardware Installer Name Role Phone Paco Luis DO Primary Care Provider [phone] Reason for Visit * Reason Onset Date Comments Medication Administration prolia Medication Administration 10/12/2024 Prolia * Precert (Within 30 days (routine)) - Closed Specialty Diagnoses / Procedures Referred By Contac t Referred To Contact Diagnoses Age-related osteoporosis without current pathological fracture Procedures MO DENOSUMAB INJECTION Boogie Peterson MD [facility] [place] [address] Phone: tel: fax: Boogie Peterson MD [address] [place] [address], [place] [address] Phone: tel: fax: Referral ID Status Reason Start Date Expiration Date V isits Requested Visits Authorized [id number] Closed Precert 08/23/2024 08/23/2025 999 2 Encounter Details Date Type Department Care Team (Late st Contact Info) Description 10/12/2024 9:30 AM EST Nurse Only Rheumatology [facility] [address] [place] [address] Pf, Nurse Rheum [facility] [place] [address] Medication Administration (prolia); Medica... Allergies Active Allergy Reactions Criticality Noted Date [...] DAY NEEDED FOR ANXIETY 05/12/20 22 Active Lancets Use to check blood sugars daily while fasting E11.9 100 Each 11 12/28/19 23 Active Blood Gluc Meter Disp-Strips Device Use to check blood sugars daily while fasting E11.9 1 Each 12/28/19 23 Active OneTouch Verio Reflect w/Device Kit USE TO CHECK BLOOD SUGARS DAILY WHILE FASTING E11.9 1 Kit 01/27/20 23 Active Glucose Blood In Vitro Strip Use to check blood sugars daily while fasting E11.9 300 Strip 11 04/23/20 23 Active Hyoscyamine Sulfate 0.125 MG Sublingual Tablet Sublingual (Levsin) DISSOLVE ONE TABLET UNDER THE TONGUE 4 TIMES DAILY NEEDED FOR ABDOMINAL PAIN IF UNABLE TO TOLERATE BENTYL. 360 Tablet 3 04/23/20 23 Active Linzess 290 MCG Oral Capsule (linaCLOtide) Take 1 Capsule by mouth in the morning. 90 Capsule 3 04/23/20 23 Active Dicyclomine HCl 20 [...] Active Additional Information Patient taking differently:650 mg [id number] PRN, Pain, Breakthrough, Fever >38C(100.5F), Reported on 09/30/2024 Metoprolol Succinate ER 25 MG Oral Tablet Extended Release 24 Hour (toPROL XL)Indications:His tory of ST elevation myocardial infarction (STEMI) Take 0.5 Tablets by mouth in the morning. 45 Tablet 3 01/06/20 24 Active Ciclopirox 8 % External SolutionIndication s:Onychomycosis Apply over nail and surrounding skin. Apply daily over previous coat. After seven (7) days, may remove with alcohol and continue cycle. 6.6 mL 2 04/04/20 24 Active glipiZIDE 5 MG Oral Tablet (Glucotrol)Indicat ions:Diabetes mellitus without complication (HCC) Take up to 2 pills twice daily with meals 180 Tablet 3 04/11/20 24 Active Additional Information Patient not taking.Reported on 09/30/2024 Thyroid 30 MG Oral Tablet (Callahan Thyroid)Indication s:Primary hypothyroidism one pill twice a [...] 24 Active Vitamin D (Ergocalciferol) 1.25 MG (77409 UT) Oral Capsule (Drisdol)Indicatio ns:Senile osteoporosis Take 1 Capsule by mouth once a week. 12 Capsule 3 09/12/20 24 025 Active Mounjaro 2.5 MG/0.5ML Subcutaneous Solution Auto-injector Inject 2.5 mg under the skin once a week. 09/14/20 24 Active Cetirizine HCl 10 MG Oral Tablet [...] MORNING 90 Tablet 3 10/09/20 24 Active Hospital, Clinic, or Other Facility Administered Medication Ordered Dose Route Frequency Start Date End Date Status Denosumab (Prolia) subcut inj 60 mgIndications:Senile osteoporosis 60 mg SC ONCE 10/12/2024 10/12/2024 Ended documented as of this encounter (statuses as of 10/12/2024) Active Problems Problem Noted Date Diagnosed Date History of ST elevation myocardial infarction (S DANIEL) 04/04/2024 Dyslipidemia, goal LDL below 70 04/04/2024 HTN, goal below 130/80 04/04/2024 Primary hypothyroidism 04/04/2024 Coronary artery disease invo lving koi coronary artery of koi heart without angina pectoris 08/13/2023 Diabetes mellitus [...] laboratory testing for COVID-19 12/12/2020 10/14/20 22 Recurrent major depressive d isorder, in remission [...] 30 Mcg, IM, 12 yrs and above (Tresorit) 09/10/2022 Pneumococcal Conjugate Vaccine, 20-valent (Prevn ar20) 12/23/2022 Pneumococcal Polysaccharide PPV23 (Pneumovax) TD - Tetanus/Diptheria (ADULT) 11/22/2003 TDAP (age 10 and older)(Boostrix) 09/29/2012 Zoster Vaccine Recombinant (Shingrix) 12/15/2019 documented as of this encounter Social History Tobacco Use Types Packs/Day Years Used Date Smoking Tobacco: Some Days Cigarettes 0.3 36 Smokeless Tobacco: Never Tobacco Cessation:Ready to Q uit: Not Asked; Counseling Given: Not Answered Comments:in process of quitting but smokes a cigarette a few times [...] No 02/11/2024 Does the household have a [facility] source of income? (Household - for ages [...] Pressure - - Pulse - - Temperature 36.5 °C (97.7 °F) 10/12/2024 9:32 AM ES T Respiratory Rate - - Oxygen Saturation - - Inhaled Oxygen Concentration - - Weight - - Height - - Body Mass Index - - documented in this encounter Progress Notes * Roshni Jensen LPN - 10/12/2024 9:32 AM EST Greg Gayle presents today for administration of Prolia. She understands the benefits and risks of this treatment. An educational pamphlet was given to the patient. Prolia 60 mg was administered subcutaneously. The patient tolerated the procedure without problems. She will return in 6 months for the next injection and evaluation. Roshni Jensen LPN documented in this encounter Nursing Notes * Roshni Jensen LPN - 10/12/2024 9:31 AM EST Chief Complaint Patient presents with Medication Administration prolia documented in this encounter Plan of Treatment Upcoming Encounters Date Type Department Care Team (Late st Contact Info) Description 11/13/2024 8:00 AM EST Office Visit Cardiology, [facility] [address] [place] [address] Seth Oliver, [address] [place] [address] 11/14/2024 8:00 AM EST Office Visit Family Practice [facility] [address] [place] [address] Neva Samayoa MD [address] [place] [address] 04/12/2025 10:30 AM EDT Nurse Only Rheumatology [place] [address] [place] [address] Pf, Nurse Rheum [address] [place] [address] Scheduled Procedures Name Priority Associated Diagnoses Date/Ti me COLONOSCOPY FLEXIBLE PROXIMA L DIAGNOSTIC Recall Family history of colon cancer Health Maintenance Due Date Last Done Comments DISCUSS TOBACCO CESSATION (REFER TO SMARTSET #4176) 1965 HIV Screening 1978 HPV/Co-Test 1993 Cologuard [...] D LEVEL ONCE IN A LIFETIME-USE SMARTSET# 29423 Completed 08/11/2024, 04/04/2024, 07/27/2023, Additional history exists [...] as of this encounter Visit Diagnoses Diagnosis Senile osteoporosis- Primary documented in this encounter Administered Medications Inactive Administered Medications - up to 3 most recent administrations Medication Order MAR Action Action Date Dose Rate Site Denosumab (Prolia) subcut inj 60 mg 60 mg, Subcutaneous, ONCE, On Parul 10/12/24 at 0930, For 1 doseIndications:Senile osteoporosis Given 10/12/2024 9:36 AM EST 60 mg Arm Left Upper documented in this encounter Care Teams Hardware Installer Relationship Specialty Start Date End Date Paco Luis DO [address] [place] [address] PCP - General Family Medicine 06/11/17 documented as of this encounter
--- OUTSIDE RECORDS SUMMARY | 2025-03-19 14:02 | External Medical Summary | Summary of Care ---
Author Name Unknown Organization [facility] Address [address] [place] [address] Phone [phone] Care Team Providers Care Diamond Picker Name Role Phone Paco Luis DO Primary Care Provider [phone] Reason for Referral * Evaluate & Treat - Unlimited Visits (Within 30 days (routine)) - Authorized Specialty Diagnoses / Procedures Referred By Conttommie t Referred To Contact Otolaryngology Diagnoses Epistaxis Seth Oliver DO [address] [place] [address] Phone: tel: fax: Referral ID Status Reason Start Date Expiration Date Visits Requested Visits Authorized [id number] Authorized Specialty Services Required 4 999 999 Question Answer Referral Priority Within 30 days (routine) Where should this appointment be scheduled? [facility] Reason for Referral Nasal/Sinus/Allergy Conditions Specific Condition: Epistaxis (nosebleeds) Comments Frequent epistaxis , needs to be on aspirin for history of coronary artery disease Reason for Visit * Reason Comments Follow Up Encounter Details Date Type Department Care Team (Late st Contact Info) Description 11/13/2024 8:00 AM EST Office Visit Cardiology, [facility] [address] [place] [address] Seth Oliver DO [address] [place] [address] Coronary artery disease involving minto coronary artery of minto heart without angina pectoris*; History of ST elevation myocardial infarction (STEMI); HTN, goal below 130/80; Dyslipidemia; Epistaxis; Diabetes mellitus without complication (HCC) Allergies Active [...] as of this encounter (statuses as of 11/13/2024) Medications Suvorexant 20 MG Oral Tablet Take [...] Active Additional Information Patient taking differently:650 mg [id number] PRN, Pain, Breakthrough, Fever >38C(100.5F), Reported on 11/13/2024 Metoprolol Succinate ER 25 MG Oral Tablet Extended Release 24 Hour (toPROL XL)Indications:Hi story of ST elevation myocardial infarction (STEMI) Take 0.5 Tablets by mouth in the morning. 45 Tablet 3 024 Active Thyroid 30 MG Oral Tablet (Pontiac Thyroid)Indicatio ns:Primary hypothyroidism one pill twice a day 180 Tablet 3 024 Active Losartan Potassium 25 MG Oral Tablet (Cozaar)Indicatio ns:HTN, goal below 130/80 Take 0.5 Tablets by mouth in the morning. 45 Tablet 3 024 Active Atorvastatin Calcium 80 MG Oral Tablet (Lipitor) TAKE 1 TABLET BY MOUTH EVERY DAY IN THE MORNING 90 Tablet 024 Active Vitamin D (Ergocalciferol) 1.25 MG (50128 UT) Oral Capsule (Drisdol)Indicati ons:Senile osteoporosis Take [...] on ins for [place]), Reported on 11/13/2024 Lancets Use to check blood sugars daily while fasting E11.9 100 Each 11 023 2023 Discontinued Blood Gluc Meter Disp-Strips Device Use to check blood sugars daily while fasting E11.9 1 Each 023 2023 Discontinued OneTouch Verio Reflect w/Device Kit USE TO CHECK BLOOD SUGARS DAILY WHILE FASTING E11.9 1 Kit 023 2023 Discontinued Ciclopirox 8 % External SolutionIndicatio ns:Onychomycosis Apply over nail and surrounding skin. Apply daily over previous coat. After seven (7) days, may remove with alcohol and continue cycle. 6.6 mL 2 024 2023 Discontinued documented as of this encounter (statuses as of 11/13/2024) Active Problems Problem Noted Date Diagnosed Date History of ST elevation myocardial infarction (S DANIEL) 04/04/2024 Dyslipidemia, goal LDL below 70 04/04/2024 HTN, goal below 130/80 04/04/2024 Primary hypothyroidism 04/04/2024 Coronary artery disease invo lving minto coronary artery of minto heart without angina pectoris 08/13/2023 Diabetes mellitus [...] as of this encounter (statuses as of 11/13/2024) Resolved Problems Problem Noted Date Diagnosed Date [...] as of this encounter (statuses as of 11/13/2024) Immunizations Name Administration Dates Next Due COVID-19 mRNA, LNP-s, No Pre serve, 2-Dose Series ([place]) 04/18/2021,03/28/2021 COVID-19, LNP-s, No Preserve , Shailesh-sucrose, Ages 12+ ([place]) 10/21/2021 Covid-19, Mrna, Lnp-s, Pf, B ivalent, 30 Mcg, IM, 12 yrs and above ([place]) 09/10/2022 Pneumococcal Conjugate Vaccine, 20-valent (Prevn ar20) [...] Reading Time Taken Comments Blood Pressure 118/68 11/13/2024 7:53 AM EST Pulse 80 11/13/2024 7:53 AM EST Temperature - - Respiratory Rate 16 11/13/2024 7:53 AM EST Oxygen Saturation - - Inhaled Oxygen Concentration - - Weight 61.2 kg (135 lb) 11/13/2024 7:53 AM EST Height - - Body Mass Index 27.73 09/30/2024 10:43 AM EST documented in this encounter Progress Notes * Seth Oliver, DO - 11/13/2024 8:13 AM EST 11/13/2024 Cardiology Follow Up SUBJECTIVE: History of Present Illness Dorina Chapa, a 59-year-old individual with a history of coronary heart disease, previous inferiorwall ST segment elevation myocardial infarction, hypertension, and dyslipidemia, has been feeling well from a cardiac perspective. She has been maintaining an active lifestyle, walking three miles every other day. However, in August 2024, she experienced recurrent episodes of epistaxis, which led to the discontinuation of Brilinta. Despite being on aspirin monotherapy, she continues to experience nosebleeds approximately twice a week. In addition to her cardiac conditions, she is also managing diabetes with the GLP-1 agonist, Mounjaro, under the care of her primary care doctor. Her dose was recently increased, and she is awaiting insurance authorization for the new dose. She has been tolerating her medications well. Her most recent EKG in March 2024 showed a normal sinus rhythm at 73 beats per minute with normal ST segments. A transthoracic echocardiogram performed during her initial hospital stay in July 2023 revealed normal left ventricular systolic function, no valvular disease, and normal wall motion. The LVEF was 55- 60%, with grade one diastolic dysfunction noted. A cardiac catheterization performed at the same time revealed an acute thrombotic occlusion of the proximal right coronary artery, whichwas treated. The left main and LAD were free of disease, with luminal irregularities noted in the circumflex coronary artery. She has been managing her hypertension well, with a recent blood pressure measurement of 118/68. Her most recent LDL cholesterol level was well controlled at 70 mg/dL, and she anticipates an improvement in her mildly elevated triglyceride level of 191 mg/dL with ongoing aerobic activity, a low carbo hydrate diet, and treatment for diabetes. She has been experiencing social stressors due to her son-in-law's impending deployment and has been attending regular counseling sessions for anxiety. Past medical history: CAD, hx of inferior wall STEMI complicated by intermittent third-degree AV block, 07/28/2023 Status post emergent cardiac catheterization found to have an acute thrombotic occlusion of the ostial RCA status post PCI with x1 TOMMIE. Post procedure, third- degree heart block resolved. 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 Ensure Nausea/vomiting Morphine chest pain Other reaction(s): can't breathe Current Outpatient Medications Medication Sig Dispense Refill [...] Tablet 3 Thyroid 30 MG Oral Tablet (Pontiac Thyroid) one pill twice a day 180 Tablet 3 Losartan Potassium 25 MG Oral Tablet (Cozaar) Take 0.5 Tablets by mouth in the morning. 45 Tablet 3 Atorvastatin Calcium 80 MG Oral Tablet (Lipitor) TAKE 1 TABLET BY MOUTH EVERY DAY IN THE MORNING 90Tablet 0 Vitamin D (Ergocalciferol) 1.25 MG (46993 UT) Oral Capsule (Drisdol) Take 1 Capsule [...] on ins for [place])) 2 mL 11 Glucose Blood In Vitro Strip Use to check blood sugars daily while fasting E11.9 300 Strip 11 No current facility-administered medications for this visit. OBJECTIVE/PHYSICAL EXAMINATION: BP 118/68 | Pulse 80 | Resp 16 | Wt 61.2 kg (135 lb) | LMP 11/02/2013 | BMI 27.73 kg/m² | BSA 1.59m² General: no acute distress and stated age Eyes: conjunctiva are pink and non-injected, sclera clear Neck: normal jugular venous pulse, no hepatojugular reflux Chest: normal shape and normal respiratory effort Lungs: clear to auscultation , no rales rhonchi or wheezing Cardiac Exam: - regular heart sounds, no murmurs, rubs, or gallops Abdomen: abdomen soft, non-tender, no abnormal masses and no hepatosplenomegaly Musculoskeletal: no gait disturbance, no weakness Extremities: no edema and no cyanosis Neuro: grossly normal exam Psych: appropriate affect and insight. Data: Results LABS LDL cholesterol: 70 mg/dL Triglycerides: 191 mg/dL DIAGNOSTIC EKG: Sinus rhythm at 73 bpm, normal ST segments (04/21/2024) Transthoracic echocardiogram: Normal left ventricular systolic function, no valvular disease, normal wall motion, LVEF 55-60%, grade 1 diastolic dysfunction (07/28/2023) Cardiac catheterization: Acute thrombotic occlusion of proximal right coronary artery, left main and LAD free of disease, luminal irregularities in circumflex coronary artery (07/28/2023) Latest Reference Range & Units 09/20/24 08:33 Triglycerides <=174 mg/dL 191 (H) Cholesterol <200 mg/dL 158 Non-HDL Cholesterol <=159 mg/dL 108 HDL Cholesterol >49 mg/dL 50 LDL Cholesterol <=129 mg/dL 70 (H): Data is abnormally high Latest Reference Range & Units 08/11/24 08:33 Hemoglobin A1C 4.0 - 5.6 % 5.9 (H) (H): Data is abnormally high Assessment & Plan Coronary Heart Disease Well-managed coronary heart disease without angina. Inferior wall STEMI history. Completed 13 months of Brilinta post-PR. Lifelong aspirin therapy required. Normal EKG and transthoracic echocardiogram with LVEF 55-60%. - Continue aspirin 81 mg daily - Continue metoprolol succinate - Continue losartan - Continue atorvastatin 80 mg daily - Cardiology follow-up in six months or sooner if necessary Epistaxis Recurrent epistaxis approximately twice per week on aspirin monotherapy. Previously advised to holdBrilinta. Interested in otolaryngology referral. - Referral to otolaryngology Hypertension Well-controlled hypertension with current blood pressure of 118/68 mmHg. - Continue losartan - Continue metoprolol Dyslipidemia Well-controlled LDL cholesterol at 70 mg/dL. Mildly elevated triglycerides at 191 mg/dL. Anticipated improvement with ongoing aerobic activity, low carbohydrate diet, and diabetes treatment. - Continue atorvastatin 80 mg daily Diabetes Mellitus Ongoing treatment with GLP-1 agonist Mounjaro. Recent dose increase awaiting insurance authorization. Tolerating medications well. - Continue Mounjaro as prescribed - Follow-up with primary care doctor Anxiety Experiencing anxiety and social stressors related to son-in-law's deployment. Attending regular counseling sessions. - Continue attending counseling sessions. Follow Up: Return in about 6 months (around 05/14/2025) for Clinic Visit. | For: Clinic Visit | Check-out note: Follow up with Dr Oliver or AP in 6 months. Routine referral to ENT. Patient seen in longitudinal follow up of the above issues with assessment and plan as documented. Seth Oliver DO Cardiology, [address] [place] [address] Consent was not obtained to use ambient documentation during this encounter. I used the tool outside of the encounter to assist with generating the note. documented in this encounter Nursing Notes * Ashley Hernandez LPN - 11/13/2024 7:52 AM EST Examination Room: 10 Name: Greg Gayle Date of : 1965 Reason for Visit: Follow up Problems/Concerns: Occasional dizziness Interim Hosp(s): ED September bloody nose, Chest Pain/SOB: denies MyChart Discussed: ALREADY ACTIVE Patient was instructed to not get up on the exam table until directed and assisted by their provider; patient is to remain seated in the chair/ wheelchair/ exam table for fall prevention and safety reasons. Patient is aware staff will assist stepping down off exam table with personnel. documented in this encounter Plan of Treatment Upcoming Encounters Date Type Department Care Team (Late st Contact Info) Description 12/13/2024 9:00 AM EST Office Visit Otolaryngology [facility] [address] [place] [address] Raffaele Morales PA-C [address] [place] [address] 01/26/2025 8:00 AM EST Office Visit Family Practice [facility] [address] [facility] [place] [address] Neva Samayoa MD [address] [facility] [place] [address] 04/12/2025 10:30 AM EDT Nurse Only Rheumatology [place] [id number] [place] [address] Pf, Nurse Rheum [facility] [address] [address] 04/18/2025 8:00 AM EDT Office Visit Cardiology, [facility] [address] [place] [address] Enedina Nogueira CRNP [address] [place] [id number] Scheduled Procedures Name Priority Associated Diagnoses Date/Ti me COLONOSCOPY FLEXIBLE PROXIMA L DIAGNOSTIC Recall Family history of colon cancer Scheduled Referrals Name Type Priority Associated Diagnoses Order Schedule ADULT/PEDS OTOLARYNGOLOGY REFERRAL OP Referral Within 30 days (routine) Epistaxis Ordered: 11/13/2024 Health Maintenance Due Date Last Done Comments DISCUSS TOBACCO CESSATION (REFER TO SMARTSET #7828) 1965 HIV Screening 1978 HPV/Co-Test 1993 Cologuard [...] D LEVEL ONCE IN A LIFETIME-USE SMARTSET# [id number] Completed 08/11/2024, 04/04/2024, 07/27/2023, Additional history exists [...] as of this encounter Visit Diagnoses Diagnosis Coronary artery disease involving minto coronary artery of minto heart without angina pectoris- Primary History of ST elevation myocardial infarction (STEMI) Old myocardial infarction HTN, goal below 130/80 Unspecified essential hypertension Dyslipidemia Other and unspecified hyperlipidemia Epistaxis Diabetes mellitus without complication (HCC) Type II or unspecified type diabetes mellitus without mention of complication, not stated as uncontrolled documented in this encounter Care Teams Diamond Picker Relationship Specialty Start Date End Date Paco Luis DO [address] [place] [address] PCP - General Family Medicine 06/11/17 documented as of this encounter"
--- OUTSIDE RECORDS SUMMARY | 2025-03-19 14:03 | External Medical Summary | Summary of Care ---
Author Name Unknown Organization [facility] Address [address] [place] [address] Phone [phone] Care Team Providers Care Body Technician/Painter Name Role Phone Trace Guan DO Primary Care Provider [phone] Reason for Visit * Reason Comments eRx-Medication Refill Encounter Details Date Type Department Care Team (Late st Contact Info) Description 10/07/2024 Refill Family Practice [facility] [address] [place] [address] Trace Guan DO [address] [facility], [place] [address] Gastritis, bile acid reflux Allergies Active Allergy Reactions Criticality Noted Date [...] as of this encounter (statuses as of 10/07/2024) Medications Suvorexant 20 MG Oral Tablet Take [...] TOLERATE BENTYL. 360 Tablet 3 023 Active Linzess 290 MCG Oral Capsule (linaCLOtide) Take 1 Capsule by mouth in the morning. 90 Capsule 3 023 Active Dicyclomine HCl 20 MG [...] Active Additional Information Patient taking differently:650 mg [id number] PRN, Pain, Breakthrough, Fever >38C(100.5F), Reported on 09/30/2024 Aspirin 81 MG Oral Tablet Delayed Release Take 1 Tablet by mouth in the morning. 90 Tablet 3 023 Active Metoprolol Succinate ER 25 MG Oral [...] twice daily with meals 180 Tablet 3 Active Additional Information Patient not taking.Reported on 09/30/2024 Thyroid 30 MG Oral Tablet ([place] Thyroid)Indicatio ns:Primary hypothyroidism one pill twice a day 180 Tablet 3 024 Active Losartan Potassium 25 MG Oral Tablet (Cozaar)Indicatio ns:HTN, goal below 130/80 Take 0.5 Tablets by mouth in the morning. 45 Tablet 3 024 Active Atorvastatin Calcium 80 MG Oral Tablet (Lipitor) TAKE 1 TABLET BY MOUTH EVERY DAY IN THE MORNING 90 Tablet 024 Active Vitamin D (Ergocalciferol) 1.25 MG (92896 UT) Oral Capsule (Drisdol)Indicati ons:Senile osteoporosis Take 1 Capsule by mouth once a week. 12 Capsule 3 024 2024 Active Mounjaro 2.5 MG/0.5ML Subcutaneous Solution Auto-injector Inject 2.5 mg under the skin once a week. 024 Active Cetirizine HCl 10 MG Oral Tablet (ZyrTEC) Take 1 Tablet by mouth in the morning. 90 Tablet 3 024 Active Amoxicillin-Pot Clavulanate 875-125 MG Oral Tablet (Augmentin) Take 1 Tablet by mouth in the morning and 1 Tablet before bedtime. Do all this for 10 days. 20 Tablet 024 2023 Active Omeprazole 40 MG Oral Capsule Delayed Release (PriLOSEC)Indicat ions:Gastritis, bile acid reflux TAKE 1 CAPSULE BY MOUTH EVERY MORNING 90 Capsule 2 Active Omeprazole 40 MG Oral Capsule Delayed Release (PriLOSEC)Indicat ions:Gastritis, bile acid reflux TAKE 1 CAPSULE BY MOUTH EVERY MORNING 90 Capsule 2 024 2023 Discontinued Hospital, Clinic, or Other Facility Administered Medication Ordered Dose Route Frequency Start Date End Date Status Denosumab (Prolia) subcut inj 60 mgIndications:Senile osteoporosis 60 mg SC ONCE 10/12/2024 10/12/2024 Active documented as of this encounter (statuses as of 10/07/2024) Active Problems Problem Noted Date Diagnosed Date History of ST elevation myocardial infarction (S DANIEL) 04/04/2024 Dyslipidemia, goal LDL below 70 04/04/2024 HTN, goal below 130/80 04/04/2024 Primary hypothyroidism 04/04/2024 Coronary artery disease invo lving [place] coronary artery of [place] heart without angina pectoris 08/13/2023 Diabetes mellitus [...] as of this encounter (statuses as of 10/07/2024) Resolved Problems Problem Noted Date Diagnosed Date [...] as of this encounter (statuses as of 10/07/2024) Immunizations Name Administration Dates Next Due COVID-19 [...] encounter Miscellaneous Notes * Telephone Encounter - [facility] - 10/07/2024 8:54 PM EST Signed Prescriptions: Disp Refills Omeprazole 40 MG Oral Capsule Delayed Rele*90 Cap*2 Sig: TAKE 1 CAPSULE BY MOUTH EVERY MORNINGAuthorizing Provider: TRACE GUAN User: LIZZETH COVINGTON Electronically signed by [facility] at 10/07/2024 8:54 PM EST documented in this encounter Plan of Treatment Upcoming Encounters Date Type Department Care Team (Late st Contact Info) Description 10/12/2024 9:30 AM EST Nurse [address] [address] Pf, Nurse Rheum [address] [place] [address] 11/13/2024 8:00 AM EST Office Visit Cardiology, [facility] [address] [place] [address] Seth Oliver, [address] [place] [address] 11/14/2024 8:00 AM EST Office Visit Family Practice [facility] [address] [facility] [place] [address] Neva Samayoa MD [address] [facility] [place] [address] 04/12/2025 10:30 AM EDT Nurse Only Rheumatology [facility] [address] [place] [address] Pf, Nurse Rheum [address] [facility] [place] [address] Scheduled Procedures Name Priority Associated Diagnoses Date/Ti me COLONOSCOPY FLEXIBLE PROXIMA L DIAGNOSTIC Recall Family history of colon cancer Health Maintenance Due Date Last Done Comments DISCUSS TOBACCO CESSATION (REFER TO SMARTSET #0632) 1965 HIV Screening 1978 HPV/Co-Test 1993 Cologuard [...] D LEVEL ONCE IN A LIFETIME-USE SMARTSET# 24846 Completed 08/11/2024, 04/04/2024, 07/27/2023, Additional history exists [...] as of this encounter Visit Diagnoses Diagnosis Gastritis, bile acid reflux Other specified gastritis without mention of hemorrhage documented in this encounter Care Teams Body Technician/Painter Relationship Specialty Start Date End Date Trace Guan DO [address] [place] [address] PCP - General Family Medicine 06/11/17 documented as of this encounter
--- OUTSIDE RECORDS SUMMARY | 2025-03-19 14:03 | External Medical Summary | Summary of Care ---
Author Name Unknown Organization [facility] Address [address] [place] [address] Phone [phone] Care Team Providers Care Email Engineer Name Role Phone Paco Luis DO Primary Care Provider Reason for Visit * Reason Onset Date Comments Order Request 10/06/2024 prolia Encounter Details Date Type Department Care Team (Late st Contact Info) Description 10/06/2024 Telephone Rheumatology [facility] [address] [facility] [place] [address] Boogie Peterson MD [address] [facility] [address] Order Request (prolia) Allergies Active Allergy Reactions Criticality Noted Date [...] as of this encounter (statuses as of 10/06/2024) Medications Suvorexant 20 MG Oral Tablet Take [...] Active Additional Information Patient taking differently:650 mg [id number] PRN, Pain, Breakthrough, Fever >38C(100.5F), Reported on 09/30/2024 Aspirin 81 MG Oral Tablet Delayed Release Take 1 Tablet by mouth in the morning. 90 Tablet 3 08/25/20 23 Active Metoprolol Succinate ER 25 MG Oral Tablet Extended Release 24 Hour (toPROL XL)Indications:His tory of ST elevation myocardial infarction (STEMI) Take 0.5 Tablets by mouth in the morning. 45 Tablet 3 01/06/20 24 Active Omeprazole 40 MG Oral Capsule Delayed Release (PriLOSEC)Indicati ons:Gastritis, bile acid reflux TAKE 1 CAPSULE BY MOUTH EVERY MORNING 90 Capsule 2 01/28/20 24 Active Ciclopirox 8 % External SolutionIndication [...] on 09/30/2024 Thyroid 30 MG Oral Tablet ([place] Thyroid)Indication s:Primary hypothyroidism one pill twice a [...] 24 Active Vitamin D (Ergocalciferol) 1.25 MG (40511 UT) Oral Capsule (Drisdol)Indicatio ns:Senile osteoporosis Take 1 Capsule by mouth once a week. 12 Capsule 3 09/12/20 24 025 Active Mounjaro 2.5 MG/0.5ML Subcutaneous Solution Auto-injector Inject 2.5 mg under the skin once a week. 09/14/20 24 Active Cetirizine HCl 10 MG Oral Tablet (ZyrTEC) Take 1 Tablet by mouth in the morning. 90 Tablet 3 09/30/20 24 Active Amoxicillin-Pot Clavulanate 875-125 MG Oral Tablet (Augmentin) Take 1 Tablet by mouth in the morning and 1 Tablet before bedtime. Do all this for 10 days. 20 Tablet 09/30/20 24 024 Active Hospital, Clinic, or Other Facility Administered Medication Ordered Dose Route Frequency Start Date End Date Status Denosumab (Prolia) subcut inj 60 mgIndications:Senile osteoporosis 60 mg SC ONCE 10/12/2024 10/12/2024 Active documented as of this encounter (statuses as of 10/06/2024) Active Problems Problem Noted Date Diagnosed Date History of ST elevation myocardial infarction (S DANIEL) 04/04/2024 Dyslipidemia, goal LDL below 70 04/04/2024 HTN, goal below 130/80 04/04/2024 Primary hypothyroidism 04/04/2024 Coronary artery disease invo lving [place] coronary artery of [place] heart without angina pectoris 08/13/2023 Diabetes mellitus [...] as of this encounter (statuses as of 10/06/2024) Resolved Problems Problem Noted Date Diagnosed Date [...] as of this encounter (statuses as of 10/06/2024) Immunizations Name Administration Dates Next Due COVID-19 mRNA, LNP-s, No Pre serve, 2-Dose Series ([employer]) 04/18/2021,03/28/2021 COVID-19, LNP-s, No Preserve , Shailesh-sucrose, [...] encounter Miscellaneous Notes * Telephone Encounter - Boogie Peterson MD - 10/06/2024 12:50 PM EST signed * Telephone Encounter - Roshni Jensen LPN - 10/06/2024 9:58 AM EST Chart reviewed and labs noted to be within normal limits. Patient has been seen within the last 12 months by a Rheumatology provider. Prolia authorization approved and updated in referral. Last injection has been > 6 months and 1 day. CAM orders pended for signature. Thank you! documented in this encounter Plan of Treatment Upcoming Encounters Date Type Department Care Team (Late st Contact Info) Description 10/12/2024 9:30 AM EST Nurse Only Rheumatology [facility] [address] [place] [address] Pf, Nurse Rheum [address] [place] [address] 11/13/2024 8:00 AM EST Office Visit Cardiology, [facility] [address] [place] [address] Seth Oliver, [address] [place] [address] 11/14/2024 8:00 AM EST Office Visit Family Practice [facility] [address] [facility] [place] [address] Neva Samayoa MD [address] [facility] [place] [address] 04/12/2025 10:30 AM EDT Nurse Only Rheumatology [facility] [address] [facility] [place] [address] Pf, Nurse Rheum [facility] [place] [address] Scheduled Procedures Name Priority Associated Diagnoses Date/Ti me COLONOSCOPY FLEXIBLE PROXIMA L DIAGNOSTIC Recall Family history of colon cancer Health Maintenance Due Date Last Done Comments DISCUSS TOBACCO CESSATION (REFER TO SMARTSET #6302) 1965 HIV Screening 1978 HPV/Co-Test 1993 Cologuard [...] D LEVEL ONCE IN A LIFETIME-USE SMARTSET# 53049 Completed 08/11/2024, 04/04/2024, 07/27/2023, Additional history exists [...] Senile osteoporosis- Primary documented in this encounter Care Teams Email Engineer Relationship Specialty Start Date End Date Paco Luis DO [address] [place] [address] PCP - General Family Medicine 06/11/17 documented as of this encounter
--- OUTSIDE RECORDS SUMMARY | 2025-03-19 14:03 | External Medical Summary | Summary of Care ---
Author Name Unknown Organization [facility] Address [address] [place] [address] Phone [phone] Care Team Providers Care Double Back Operator Name Role Phone Paco Luis DO Primary Care Provider Reason for Visit * Reason Comments eRx-Medication Refill Encounter Details Date Type Department Care Team (Late st Contact Info) Description 10/08/2024 Refill Cardiology, [facility] [address] [place] [address] Abby Garcia DO [address] [place] [address] Allergies Active Allergy Reactions Criticality Noted Date [...] as of this encounter (statuses as of 10/09/2024) Medications Suvorexant 20 MG Oral Tablet Take [...] Active Additional Information Patient taking differently:650 mg [id number] PRN, Pain, Breakthrough, Fever >38C(100.5F), Reported on [...] on 09/30/2024 Thyroid 30 MG Oral Tablet ([place] Thyroid)Indicatio ns:Primary hypothyroidism one pill twice a day 180 Tablet 3 024 Active Losartan Potassium 25 MG Oral Tablet (Cozaar)Indicatio ns:HTN, goal below 130/80 Take 0.5 Tablets by mouth in the morning. 45 Tablet 3 024 Active Atorvastatin Calcium 80 MG Oral Tablet (Lipitor) TAKE 1 TABLET BY MOUTH EVERY DAY IN THE MORNING 90 Tablet 024 Active Vitamin D (Ergocalciferol) 1.25 MG (36282 UT) Oral Capsule (Drisdol)Indicati ons:Senile osteoporosis Take [...] THE MORNING 90 Tablet 3 024 Active Aspirin 81 MG Oral Tablet Delayed Release Take 1 Tablet by mouth in the morning. 90 Tablet 3 023 2023 Discontinued Hospital, Clinic, or Other Facility Administered Medication Ordered Dose Route Frequency Start Date End Date Status Denosumab (Prolia) subcut inj 60 mgIndications:Senile osteoporosis 60 mg SC ONCE 10/12/2024 10/12/2024 Active documented as of this encounter (statuses as of 10/09/2024) Active Problems Problem Noted Date Diagnosed Date History of ST elevation myocardial infarction (S DANIEL) 04/04/2024 Dyslipidemia, goal LDL below 70 04/04/2024 HTN, goal below 130/80 04/04/2024 Primary hypothyroidism 04/04/2024 Coronary artery disease invo lving [place] coronary artery of [place] heart without angina pectoris 08/13/2023 Diabetes mellitus [...] as of this encounter (statuses as of 10/09/2024) Resolved Problems Problem Noted Date Diagnosed Date [...] as of this encounter (statuses as of 10/09/2024) Immunizations Name Administration Dates Next Due COVID-19 mRNA, LNP-s, No Pre serve, 2-Dose Series ([employer]) 04/18/2021,03/28/2021 COVID-19, LNP-s, No Preserve , Shailesh-sucrose, [...] encounter Miscellaneous Notes * Telephone Encounter - Abby Garcia DO - 10/09/2024 5:07 PM ESTSigned Prescriptions: Disp Refills Aspirin Low Dose 81 MG Oral Tablet Delayed*90 Tab*3 Sig: TAKE 1 TABLET BY MOUTH EVERY DAY IN THE MORNING Authorizing Provider: ABBY GARCIA * Telephone Encounter - Fernandez Ramirez, [facility] - 10/09/2024 10:37 AM EST Pending Prescriptions: Disp Refills Aspirin Low Dose 81 MG Oral Tablet Delayed*90 Tab*3 Sig: TAKE 1 TABLET BY MOUTH EVERY DAY IN THE MORNING * Telephone Encounter - Fernandez Ramirez [facility] - 10/09/2024 10:30 AM EST Former patient of Connie Angelo who is scheduled to see you on 11/13/2024. Please review and sign if appropriate. Fernandez Ramirez [facility], Pharm D Clinical Pharmacist [facility] 10/09/2024, 10:36 AM [phone] documented in this encounter Plan of Treatment Upcoming Encounters Date Type Department Care Team (Late st Contact Info) Description 10/12/2024 9:30 AM EST Nurse Only Rheumatology [place] [address] [place] [address] Pf, Nurse Rheum [facility] [place] [address] 11/13/2024 8:00 AM EST Office Visit [facility]iology, [facility] [address] [facility] [place] [address] Abby Garcia, [address] [place] [address] 11/14/2024 8:00 AM EST Office Visit Family Practice [facility] [place] [address] [place] [address] Neva Samayoa MD [address] [place] [address] 04/12/2025 10:30 AM EDT Nurse Only Rheumatology [place] [address] [place] [address] Pf, Nurse Rheum [address] [facility] [place], [place] [address] Scheduled Procedures Name Priority Associated Diagnoses Date/Ti me COLONOSCOPY FLEXIBLE PROXIMA L DIAGNOSTIC Recall Family history of colon cancer Health Maintenance Due Date Last Done Comments DISCUSS TOBACCO CESSATION (REFER TO SMARTSET #3101) 1965 HIV Screening 1978 HPV/Co-Test 1993 Cologuard [...] D LEVEL ONCE IN A LIFETIME-USE SMARTSET# [id number] Completed 08/11/2024, 04/04/2024, 07/27/2023, Additional history exists [...] filedocumented as of this encounter Care Teams Double Back Operator Relationship Specialty Start Date End Date Paco Luis DO [address] [place] [address] PCP - General Family Medicine 06/11/17 documented as of this encounter
--- OUTSIDE RECORDS SUMMARY | 2025-03-19 14:03 | External Medical Summary | Summary of Care ---
Author Name Unknown Organization [facility] Address [address] [place] [address] Phone [phone] Care Team Providers Care Product Designer Name Role Phone Paco Luis DO Primary Care Provider [phone] Reason for Visit * Reason Comments Acute Sinus infection Encounter Details Date Type Department Care Team (Late st Contact Info) Description 09/30/2024 11:00 AM EST Office Visit Family [facility] [address] [facility] [place] [address] Gm Prater MD [address] [place] [address] Chronic sinusitis, unspecified location*; Chronic rhinitis; Diabetes mellitus without complication (HCC) Allergies Active [...] as of this encounter (statuses as of 09/30/2024) Medications Suvorexant 20 MG Oral Tablet Take [...] while fasting E11.9 100 Each 11 12/28/19 Active Blood Gluc Meter Disp-Strips Device Use [...] TO TOLERATE BENTYL. 360 Tablet 3 04/23/20 Active Linzess 290 MCG Oral Capsule (linaCLOtide) [...] Active Additional Information Patient taking differently:650 mg [id number] PRN, Pain, Breakthrough, Fever >38C(100.5F), Reported on [...] on 09/30/2024 Thyroid 30 MG Oral Tablet (Poth Thyroid)Indication s:Primary hypothyroidism one pill twice a [...] 24 Active Vitamin D (Ergocalciferol) 1.25 MG (92038 UT) Oral Capsule (Drisdol)Indicatio ns:Senile osteoporosis Take [...] days. 20 Tablet 09/30/20 24 024 Active documented as of this encounter (statuses as of 09/30/2024) Active Problems Problem Noted Date Diagnosed Date History of ST elevation myocardial infarction (S DANIEL) 04/04/2024 Dyslipidemia, goal LDL below 70 04/04/2024 HTN, goal below 130/80 04/04/2024 Primary hypothyroidism 04/04/2024 Coronary artery disease invo lving [place] coronary artery of [place] heart without angina pectoris 08/13/2023 Diabetes mellitus [...] as of this encounter (statuses as of 09/30/2024) Resolved Problems Problem Noted Date Diagnosed Date [...] as of this encounter (statuses as of 09/30/2024) Immunizations Name Administration Dates Next Due COVID-19 mRNA, LNP-s, No Pre serve, 2-Dose Series (Trly Uniq) 04/18/2021,03/28/2021 COVID-19, LNP-s, No Preserve , Shailesh-sucrose, Ages 12+ (Trly Uniq) 10/21/2021 Covid-19, Mrna, Lnp-s, Pf, B ivalent, [...] Sign Reading Time Taken Comments Blood Pressure 108/58 09/30/2024 10:43 AM EST Pulse 72 09/30/2024 10:43 AM EST Temperature 36.2 °C (97.2 °F) 09/30/2024 1 0:43 AM EST Respiratory Rate 18 09/30/2024 10:4 3 AM EST Oxygen Saturation 98% 09/30/2024 10: 43 AM EST Inhaled Oxygen Concentration - - Weight 61.6 kg (135 lb 12.8 oz) 024 10:43 AM EST Height 148.6 cm (4' 10.5") 09/30/2024 1 0:43 AM EST Body Mass Index 27.9 09/30/2024 10:43 AM EST documented in this encounter Progress Notes * Gm Prater MD - 09/30/2024 12:55 PM EST Subjective Greg Gayle is a 59 year old female. Chief Complaint Patient presents with Acute Sinus infection HPI: Here for recurrent sinus infection CHAN, sinus pain, ear pain, Denies fever Using flonase daily Was seen by ENT Gets ABx treatment 5-6 times per year Known type 2 DM, well controleld, last time hba1c 5.9 PMH: Patient Active Problem List Diagnosis Irritable bowel syndrome Other ventral hernia without mention of obstruction or gangrene Vitamin D insufficiency Controlled substance agreement signed Senile osteoporosis Intractable vomiting with nausea PTSD (post-traumatic stress disorder) Insomnia H. pylori infection Moderate episode of recurrent major depressive disorder (HCC) Chronic bilateral back pain Positional sleep apnea Nocturnal hypoxemia Adrenal mass (HCC) Diabetes mellitus without complication (HCC) Coronary artery disease involving [place] coronary artery of [place] heart without angina pectoris History of ST elevation myocardial infarction (STEMI) Dyslipidemia, goal LDL below 70 HTN, goal below 130/80 Primary hypothyroidism Current Outpatient Medications Medication Sig Dispense Refill Suvorexant 20 MG Oral Tablet Take 1 Tab by mouth at bedtime. busPIRone (BUSPAR) 15 MG Tablet Take 1 Tablet by mouth in the morning and 1 Tablet at noon and 1 Tablet before bedtime. LORazepam 1 MG Oral Tablet (Ativan) TAKE 1/2 TABLET BY MOUTH 4 TIMES A DAY NEEDED FOR ANXIETY Lancets Use to check blood sugars daily while fasting E11.9 100 Each 11 Blood Gluc Meter Disp-Strips Device Use to check blood sugars daily while fasting E11.9 1 Each 0 HotGrinds Verio Reflect w/Device Kit USE TO CHECK BLOOD SUGARS DAILY WHILE FASTING E11.9 1 Kit 0 Glucose Blood In Vitro Strip Use to check blood sugars daily while fasting E11.9 300 Strip 11 Hyoscyamine Sulfate 0.125 MG Sublingual Tablet Sublingual (Levsin) DISSOLVE ONE TABLET UNDER THE TONGUE 4 TIMES DAILY NEEDED FOR ABDOMINAL PAIN IF UNABLE TO TOLERATE BENTYL. 360 Tablet 3 Linzess 290 MCG Oral Capsule (linaCLOtide) Take 1 Capsule by mouth in the morning. 90 Capsule 3 Dicyclomine HCl 20 MG Oral Tablet [...] needed for Pain, Breakthrough or Fever >38C(100.5F).) Aspirin 81 MG Oral Tablet Delayed Release Take 1 Tablet by mouth in the morning. 90 Tablet 3 Metoprolol Succinate ER 25 MG Oral Tablet Extended Release 24 Hour (toPROL XL) Take 0.5 Tablets by mouth in the morning. 45 Tablet 3 Omeprazole 40 MG Oral Capsule Delayed Release (PriLOSEC) TAKE 1 CAPSULE BY MOUTH EVERY MORNING 90 Capsule 2 Ciclopirox 8 % External Solution Apply over nail and surrounding skin. Apply daily over previous coat. After seven (7) days, may remove with alcohol and continue cycle. 6.6 mL 2 Thyroid 30 MG Oral Tablet (Poth Thyroid) one pill twice a day 180 Tablet 3 Losartan Potassium 25 MG Oral Tablet (Cozaar) Take 0.5 Tablets by mouth in the morning. 45 Tablet 3 Atorvastatin Calcium 80 MG Oral Tablet (Lipitor) TAKE 1 TABLET BY MOUTH EVERY DAY IN THE MORNING 90Tablet 0 Vitamin D (Ergocalciferol) 1.25 MG (58441 UT) Oral Capsule (Drisdol) Take 1 Capsule by mouth once aweek. 12 Capsule 3 Mounjaro 2.5 MG/0.5ML Subcutaneous Solution Auto-injector Inject 2.5 mg under the skin once a week. Cetirizine HCl 10 MG Oral Tablet (ZyrTEC) Take 1 Tablet by mouth in the morning. 90 Tablet 3 Amoxicillin-Pot Clavulanate 875-125 MG Oral Tablet (Augmentin) Take 1 Tablet by mouth in the morning and 1 Tablet before bedtime. Do all this for 10 days. 20 Tablet 0 glipiZIDE 5 MG Oral Tablet (Glucotrol) Take up to 2 pills twice daily with meals (Patient not taking: Reported on 09/30/2024) 180 Tablet 3 No current facility-administered medications for this visit. Past Medical History: Diagnosis Date Adrenal mass (HCC) 02/11/2022 Compression fracture of L2 (HCC) 11/22/2011 Compression fracture of L4 lumbar vertebra 10/22/2014 Coronary artery disease involving [place] coronary artery of [place] heart without angina pectoris 08/13/2023 GERD (gastroesophageal [...] performed by Lyndon Luciano MD at ENDOSCOPY [facility] COLONOSCOPY, DIAGNOSTIC (RECTUM) 06/19/2021 diverticulosis, repeat 5 yrs / COLONOSCOPY FLEXIBLE PROXIMAL DIAGNOSTIC performed by Oren Ryder MD at ENDOSCOPY [facility] EGD, FLEXIBLE, DIAGNOSTIC 10/21/2017 + H pylori, hiatal hernia/ESOPHAGOGASTRODUODENOSCOPY (EGD), FLEXIBLE, TRANSORAL, DIAGNOSTIC performed by Lyndon Luciano MD at ENDOSCOPY [facility] EGD, FLEXIBLE, DIAGNOSTIC 06/20/2018 + H pylori, gastritis, duodenitis/ESOPHAGOGASTRODUODENOSCOPY (EGD), FLEXIBLE, TRANSORAL, DIAGNOSTICperformed by Lyndon Luciano MD at ENDOSCOPY [facility] EGD, FLEXIBLE, DIAGNOSTIC 08/21/2021 biopsies show inflammation end of esophagus consistent with acid reflux/ESOPHAGOGASTRODUODENOSCOPY (EGD), FLEXIBLE, TRANSORAL, DIAGNOSTIC performed by Oren Ryder MD at [facility] EGD, W/ENDOSCOPIC US 11/25/2018 gastritis, duodenitis/ESOPHAGOGASTRODUODENOSCOPY (EGD), FLEXIBLE, TRANSORAL, ENDOSCOPIC ULTRASOUND performed by Félix Diaz DO at ENDOSCOPY [facility] INFORMATION 12/06/2000 duodenum biopsy-benign INFORMATION Left 12/25/2016 12/25/2016 excision of sebaceous cyst left breast - office procedure - DR. Jesus Rainey L-/S-SPINE PARAVERTEBRAL FACET INJ,1 LEVEL 05/18/2016 L-/S-SPINE PARAVERTEBRAL FACET INJ, 1 LEVEL performed by [place] Darian Moralez DO at [facility] L-/S-SPINE PARAVERTEBRAL FACET INJ,1 LEVEL 06/02/2016 L-/S-SPINE PARAVERTEBRAL FACET INJ, 1 LEVEL performed by Horacio Moralez DO at [facility] L-/S-SPINE PARAVERTEBRAL FACET INJ,1 LEVEL 09/23/2017 L-/S-SPINE PARAVERTEBRAL FACET INJ, 1 LEVEL performed by Horacio Moralez DO at [facility] L-/S-SPINE PARAVERTEBRL FACET INJ,2 LEVELS 05/18/2016 L-/S-SPINE PARAVERTEBRAL FACET INJ, 2 LEVELS performed by [place] Darian Moralez DO at OR [facility] L-/S-SPINE PARAVERTEBRL FACET INJ,2 LEVELS 09/23/2017 L-/S-SPINE PARAVERTEBRAL FACET INJ, 2 LEVELS performed by Horacio Farmer Cousins, DO at OR [facility] LAPAROSCOPY; CHOLECYSTECTOMY 04/29/2001 MISCELLANEOUS ORDER ([facility] ONLY) 12/2014 back procedure for compression fracture on L4 PAP SCREEN 09/15/2000 pap satisfactory for eval. dr. hung REMOVAL OF APPENDIX 1972 REMOVAL OF APPENDIX 1969' Appendectomy REPAIR EPIGASTRIC HERNIA 01/18/2006 epigatric hernia with mest by SMALL BOWEL ENDOSCOPY W/BX 01/19/2011 bxs, sm sliding hiatal hernia, +H.Pylori infection UPPER ENDOSCOPY GI REFERRAL OP 2000 Review of patient's allergies indicates: Allergen Reactions Alendronate Stomach upset Clarithromycin Stomach pain Codeine IBS- stomach issues Other reaction(s): can't breathe Egg-Derived Products Hives Patient states she can eat products that contain small amounts of eggs, but not an egg alone. Ensure Nausea/vomiting Morphine chest pain Other reaction(s): can't breathe Family History Problem Relation Name Age of Onset Stomach cancer Father age 60 Thyroid Disorder Mother hypothyroid Hypertension Mother Other (Sepsis) Mother post gallbladder surgery; age 85 Stomach cancer Grandfather (Paternal) Breast Cancer No significant family history Colon cancer No significant family history Ovarian cancer No significant family history Family Status Relation Status Fa at age 60 Mo at age 85 PGFA (Not Specified) No history (Not Specified) Social History Socioeconomic History Marital status: Spouse name: Benjamin Number of children: 2 Years of education: 16 Highest education level: Not on file Occupational History Employer: [employer] [place] [id number] Tobacco Use Smoking status: Some Days Current packs/day: 0.25 Average packs/day: 0.3 packs/day for 36.0 years (9.0 ttl pk-yrs) Types: Cigarettes Smokeless tobacco: Never Tobacco comments: in process of quitting but smokes a cigarette a few times a day Vaping Use Vaping status: Never Used Substance and Sexual Activity Alcohol use: No Drug use: No Sexual activity: Yes Partners: Male control/protection: Surgical Comment: vasectomy Other Topics Concern Service Not Asked Blood Transfusions No Caffeine Concern Not Asked Occupational Exposure Not Asked Hobby Hazards Not Asked Sleep Concern Not Asked Stress Concern Not Asked Weight Concern Not Asked Special Diet Not Asked Back Care Not Asked Exercise Not Asked Bike Helmet Not Asked Seat Belt Not Asked Self-Exams Not Asked Social History Narrative Not on file Social Needs Financial Resource Strain: Low Risk (02/11/2024) Financial Resource Strain Do you have any trouble paying for your medications, or do you think you might in the future? (Adult - for ages 18 years and over): No Does your family have trouble paying for medicine? (Household - for ages 0-17 years): Not on file Food Insecurity: No Food Insecurity (02/11/2024) Food Insecurity Do you need food for this week? (Adult - for ages 18 years and over): No Are you able to get enough food for your family? (Household - for ages 0-17 years): Not on file Does your family need food this week? (Household - for ages 0-17 years): Not on file Do you always have enough food for your family? (Household - for ages 0-17 years): Not on file Transportation Needs: No Transportation Needs (02/11/2024) Transportation Needs Do you have trouble getting a ride to medical visits or work? (Adult - for ages 18 years and over):Never True Does your family have a hard time getting a ride to doctors’ visits? (Household - for ages 0-17 years): Not on file Has lack of transportation kept you from medical appointments, meetings, work, or from getting things needed for daily living? Check all that apply. (Adult - for ages 18 years and over): Not on file Do you (or your family) have trouble finding or paying for a ride (transportation)? (Household - for ages 0-17 years): Not on file Social Connections: Socially Integrated (02/11/2024) Social Connections How often do you feel lonely or isolated from those around you? (Adult - for ages 18 years and over): Sometimes Housing Stability: Low Risk (02/11/2024) Housing Stability Do you currently live in a care home or have no steady place to sleep at night? (Adult - for ages 18 years and over): No Do you think you are at risk of becoming homeless? (Adult - for ages 18 years and over): No Does your family worry about paying for your home or becoming homeless? (Household - for ages 0-17 years): Not on file Are you homeless or worried that you might be in the future? (Adult - for ages 18 years and over): Not on file Are you (or your family) homeless or worried that you might be in the future? (Household - for ages0-17 years): Not on file Review of Systems Constitutional: Positive for activity change, appetite change and fatigue. Negative for chills, diaphoresis, fever and unexpected weight change. HENT: Positive for congestion, ear pain, postnasal drip, sinus pressure, sinus pain, sneezing, sorethroat and tinnitus. Eyes: Positive for visual disturbance. Respiratory: Positive for cough (mild occ). Negative for chest tightness, shortness of breath and wheezing. Cardiovascular: Negative for chest pain, palpitations and leg swelling. Gastrointestinal: Negative for abdominal distention and abdominal pain. Allergic/Immunologic: Positive for environmental allergies. Neurological: Positive for dizziness, light-headedness and headaches. Psychiatric/Behavioral: Positive for sleep disturbance. Negative for agitation and behavioral problems. The patient is nervous/anxious. Objective BP 108/58 | Pulse 72 | Temp 36.2 °C (97.2 °F) (Tympanic) | Resp 18 | Ht 1.486 m (4' 10.5") | Wt 61.6 kg (135 lb 12.8 oz) | LMP 11/02/2013 | SpO2 98% | BMI 27.90 kg/m² | BSA 1.59 m² Physical Exam Constitutional: General: She is not in acute distress. Appearance: Normal appearance. She is ill-appearing. She is not toxic-appearing or diaphoretic. HENT: Head: Normocephalic and atraumatic. Nose: Congestion present. Eyes: Extraocular Movements: Extraocular movements intact. Cardiovascular: Rate and Rhythm: Normal rate and regular rhythm. Pulses: Normal pulses. Heart sounds: Normal heart sounds. No murmur heard. Pulmonary: Effort: Pulmonary effort is normal. No respiratory distress. Breath sounds: Normal breath sounds. No stridor. No wheezing, rhonchi or rales. Chest: Chest wall: No tenderness. Musculoskeletal: General: Normal range of motion. Neurological: General: No focal deficit present. Mental Status: She is alert and oriented to person, place, and time. Psychiatric: Behavior: Behavior normal. ASSESSMENT/PLAN: Chronic sinusitis, unspecified location (Primary) Chronic rhinitis Diabetes mellitus without complication (HCC) Other orders - Cetirizine HCl 10 MG Oral Tablet (ZyrTEC); Take 1 Tablet by mouth in the morning. - Amoxicillin-Pot Clavulanate 875-125 MG Oral Tablet (Augmentin); Take 1 Tablet by mouth in the morning and 1 Tablet before bedtime. Do all this for 10 days. Zyrtec daily Saline or netti pot Floanse Augmentin Gm Prater MD documented in this encounter Nursing Notes * Ashley Alvarado LPN - 09/30/2024 10:43 AM EST The patient has been properly identified by confirmation of name and date of . Chief Complaint Patient presents with Acute Sinus infection Patient reports feels like head is under water, headache, teeth hurt, fatigue, ears popping, scratchy throat, some colored mucous Symptoms stated 5 days ago. Denies cough, OTC medications- none documented in this encounter Plan of Treatment Upcoming Encounters Date Type Department Care Team (Late st Contact Info) Description 10/12/2024 9:30 AM EST Nurse Only Rheumatology [place] [id number] [place] [address] Pf, Nurse Rheum [facility] [address] [place] [address] 11/13/2024 8:00 AM EST Office Visit Cardiology[facility] [address] [facility] [place] [address] Seth Oliver, DO [address] [facility] [place] [address] 11/14/2024 8:00 AM EST Office Visit Family Practice [facility] [address] [place] [address] Neva Samayoa MD [address] [place] [address] 04/12/2025 10:30 AM EDT Nurse Only Rheumatology [facility] [address] [facility] [place] [address] Pf, Nurse Rheum [address] [place] [address] Scheduled Procedures Name Priority Associated Diagnoses Date/Ti me COLONOSCOPY FLEXIBLE PROXIMA L DIAGNOSTIC Recall Family history of colon cancer Health Maintenance Due Date Last Done Comments DISCUSS TOBACCO CESSATION (REFER TO SMARTSET #9530) 1963 HIV Screening 1978 HPV/Co-Test 1993 Cologuard [...] D LEVEL ONCE IN A LIFETIME-USE SMARTSET# [id number] Completed 08/11/2024, 04/04/2024, 07/27/2023, Additional history exists [...] as of this encounter Visit Diagnoses Diagnosis Chronic sinusitis, unspecified location- Primary Chronic rhinitis Diabetes mellitus without complication (HCC) Type II or unspecified type diabetes mellitus without mention of complication, not stated as uncontrolled documented in this encounter Care Teams Product Designer Relationship Specialty Start Date End Date Paco Luis DO [address] [place] [address] PCP - General Family Medicine 06/11/17 documented as of this encounter
[2025-03-19] MEDS: LORazepam 2 MG/1 ML VIAL ONE (15:54)
[2025-03-19] MEDS: LORazepam 2 MG/1 ML VIAL IV STA (15:54)
[2025-03-19] MEDS ORDERED: ACETAMINOPHEN 325 MG TAB PO PRN (17:29)
[2025-03-19] MEDS ORDERED: MAGNESIUM HYDROXIDE SUSP 30 ML UDC PO PRN (17:29)
--- NOTE | 2025-03-19 19:55 | History & Physical Report ---
Date of Service March 19, 2025 Assessment & Plan (1) Confusion: Plan Assessment/plan Altered mental status Possible polypharmacy Patient presents with periods intermittent confusion; no fever, neck rigidity. Reports that the symptom onset was when she was started on quadruple therapy for H. pylori on 03/09 On multiple neuropsych medication; including Ativan, Seroquel, Belsomra No focal weakness on examination; no fever, neck rigidity, photophobia CT head, CTA head and neck negative for acute finding No leukocytosis BUN/creatinine within normal limits I discussed with patient that the mentation changes could be related with multiple medications she is taking for sleep which include Ativan, Seroquel Belsomra. She eports that she has been taking for several years; Does not want to make any changes. She strongly believes that the confusion started after initiation of quadruple therapy and wants to discontinue it. She reports that she will follow-up with GI regarding it. Will obtain MRI brain with and without contrast. IV hydration Obtain vitamin B12 level, TSH Neurology consult H. pylori infectionrecent EGD showed H. pylori infection; patient currently on tetracycline 500 mg 4 times daily, Flagyl 500 4 times daily, bismuth 525 mg twice daily and omeprazole 40 mg twice daily; prescribed from 03/09 for 2 weeks. Continue omeprazole; others discontinue as patient doesn't want to take them. follow up with GI CADhistory of inferior wall cyst STEMI continue on aspirin, Lipitor and metoprolol Type 2 diabetes mellituscontrolled with diet; last A1c of 5.9 in September 2024 Hyperlipidemiacontinue on Lipitor Mood disordercontinue on home meds Full code DVT prophylaxis heparin Time spent evaluating patient, direct bedside care, chart review, placing orders, interpretation of diagnostic studies, discussion with consultants, patient, and family members, as well as other required patient management activities is 75 minutes Please note the above document was generated using voice recognition software. It may contain grammatical, syntax or spelling errors. Any formal questions or concerns about the content, text or information contained within the body of this dictation should be directly addressed to the provider for clarification History of Present Illness Chief Complaint: Intermittent confusion for 10 days Primary Care Provider: Paco Luis DO History obtained from chart review and interview with the patient Medical history of type 2 diabetes mellitus, hyperlipidemia, hypothyroidism, nocturnal hypoxia, CAD, hypertension, irritable bowel syndrome, osteoporosis, depression, PTSD, insomnia, Patient presents to the hospital with her with evaluation for Periods of confusion where she gets disoriented and speaks of nonrelevant topic out of context. Patient and her reports that the symptoms gradually progressed after initiation of treatment for H. pylori about 10 days ago. She is able to answer questions appropriately and she was oriented to self, time and place. She reports tiredness; denies any fever, neck rigidity, visual changes, weakness/numbness of any body part, chest pain or shortness of breath. She had EGD on 03/05; no significant finding; was started on treatment for H. pylori with Flagyl, tetracycline, omeprazole and bismuth subsalicylate Allergies Allergy/AdvReac Type Severity Reaction Status Date / Time egg Allergy Unknown HIVES, Verified 09/05/20 10:21 FACIAL SWELLING codeine AdvReac Unknown ABDOMINAL Verified 09/05/20 10:21 PAIN-IBS morphine AdvReac Unknown ABDOMINAL Verified 09/05/20 10:21 PAIN-IBS Opioids - Morphine Analogues AdvReac Unknown Nausea Verified 07/28/23 06:39 Home Medications Medication Instructions Recorded Confirmed Type dicyclomine 20 mg tablet 20 mg PO QID PRN IBS 10/03/18 03/19/25 History lorazepam 0.5 mg tablet 0.5 mg PO TID PRN anxiety 09/05/20 03/19/25 History suvorexant 20 mg tablet (Belsomra) 20 mg PO HS PRN Sleep 09/05/20 03/19/25 History buspirone 15 mg tablet 22.5 mg PO QID 07/28/23 03/19/25 History cholecalciferol (vitamin D3) 1,250 50,000 unit PO FR@0900 07/28/23 03/19/25 History mcg (50,000 unit) capsule denosumab 60 mg/mL subcutaneous See Rx Instructions .Route .COMPLEX 07/28/23 03/19/25 History syringe (Prolia) omeprazole 40 mg capsule,delayed 40 mg PO DAILY 07/28/23 03/19/25 History release progesterone micronized 200 mg 400 mg PO HS PRN Other 07/28/23 03/19/25 History capsule linaclotide 290 mcg capsule 290 mcg PO DAILY 07/29/23 03/19/25 History (Linzess) quetiapine 300 mg tablet 300 mg PO HS 07/30/23 03/19/25 History aspirin 81 mg tablet,delayed 81 mg PO QAM #30 tabs 08/07/23 03/19/25 Rx release atorvastatin 80 mg tablet 80 mg PO DAILY #30 tabs 08/07/23 03/19/25 Rx tirzepatide 7.5 mg/0.5 mL 7.5 mg subcut WK 03/19/25 03/19/25 History subcutaneous pen injector (Mounjaro) Past Med/Surg History Problem List (Updated 03/19/25 @ 19:48 by Figueroa Holm MD) Confusion Pseudoaneurysm Mobitz type 1 second degree AV block (Acute) Acute WI, inferior wall (Acute) Hypothyroidism DMII (diabetes mellitus, type 2) Adrenal nodule Dyslipidemia Bradycardia Abdominal pain Acute myocardial infarction involving right coronary artery Infiltrate of both lungs present on imaging study Pneumonia (Acute) Contusion of rib on right side (Acute) Calcific bursitis (Acute) Benzodiazepine dependence (Acute) Irritable bowel syndrome Compression fracture of lumbar vertebra (Acute) Back pain (Acute) Lumbar compression fracture (Acute) Hematoma pseudoaneurysm of femoral artery following cardiac catheterization Anxiety (Acute) Vitamin D insufficiency Osteoporosis Medical History Stress fracture Depressed PTSD (post-traumatic stress disorder) Surgical History H/O kyphoplasty History of heart artery stent History of cardiac cath Social History Smoking Status: Never smoker Tobacco Type: Cigarettes Second Hand Exposure: No; Do You Dip or Chew Tobacco: No; Hx Alcohol Use: No Hx Substance Use: No Preferred Language: Serbian Communication Ability: Effective Senior Storage Administrator Required: No Beliefs That Will Affect Care: None Current Living Situation: Spouse current occupation: retired Feels Safe at Home: Yes Assistive Devices: None Review of Systems Review of Systems: All systems reviewed & are unremarkable except as noted in Subjective Physical Exam Physical Exam: On physical examination; Constitutional: She appears tired but able to answer questions appropriately. A lert and oriented x 3. Neck: no rigidity Respiratory: normal respiratory effort, lungs clear to auscultation, no wheeze, rales, rhonchi. Normal insp/exp effort, no accessory muscle use Cardiovascular: RRR, no murmur, no edema Vessels: no JVD or carotid bruit Chest: normal inspection of chest Abdomen: normal bowel sounds, soft, nontender, no hepatosplenomegaly Musculoskeletal: no cyanosis or clubbing, extremities motor strength 5/5 Skin: no rashes, warm and dry normal turgor Neurologic: PERRL, EOMI, accommodation nl, no face palsy, no dysarthria CN's II- XI intact bilaterally and moves all extremities Results & Data Results & Data Vital Signs (Past 12 Hours) Vital Signs Temp Pulse Pulse Resp BP BP Pulse Ox 03/19/25 18:00 74 18 137/75 98 03/19/25 16:40 78 03/19/25 16:00 80 18 164/94 H 96 03/19/25 15:00 80 18 153/88 H 98 03/19/25 14:57 71 18 148/77 H 99 03/19/25 12:39 89 22 161/94 H 99 03/19/25 11:24 99 03/19/25 11:03 77 18 154/86 H 97 03/19/25 10:33 78 16 140/82 96 03/19/25 10:33 99 03/19/25 10:21 83 16 139/86 95 03/19/25 10:18 94 H 03/19/25 10:01 36.5 C 105 H 18 138/79 98 O2 Del Method 03/19/25 18:00 Room Air 03/19/25 16:40 03/19/25 16:00 Room Air 03/19/25 15:00 Room Air 03/19/25 14:57 Room Air 03/19/25 12:39 Room Air 03/19/25 11:24 Room Air 03/19/25 11:03 Room Air 03/19/25 10:33 Room Air 03/19/25 10:33 Room Air 03/19/25 10:21 Room Air 03/19/25 10:18 03/19/25 10:01
[2025-03-19] MEDS: busPIRone 7.5 MG TAB PO SCH (20:48)
[2025-03-19] MEDS: QUEtiapine FUMARATE 300 MG TABLET PO SCH (20:49)
[2025-03-19] MEDS: LORazepam 0.5 MG TAB PO PRN (20:49)
[2025-03-19] MEDS: GADOBUTROL 65ML VIAL IV ONE (21:34)
--- NOTE | 2025-03-19 22:25 | Magnetic Resonance Report ---
Exam(s): MRI HEAD W/WO Contrast IV Amt: 6cc gadavist EXAM: MR Head Without and With Intravenous Contrast CLINICAL HISTORY: Reason for exam: confusion. TECHNIQUE: Magnetic resonance images of the head/brain without and with intravenous contrast in multiple planes. CONTRAST: Patient received 6cc gadavist of IV contrast COMPARISON: CT head, CTA head 03/19/25 FINDINGS: Brain: No diffusion restriction to suggest acute cerebral ischemia. No acute intracranial hemorrhage. Intracranial flow voids appear normal. Mild cortical cerebral volume loss. Scattered foci of FLAIR signal hyperintensity in the cerebral white matter in keeping with mild chronic small vessel ischemic change. No intracranial mass or abnormal enhancement. Ventricles: Unremarkable. No hydrocephalus. Bones/joints: Unremarkable. No acute fracture. Sinuses: Unremarkable as visualized. Mastoid air cells: Unremarkable as visualized. No mastoid effusion. Orbits: Unremarkable as visualized. IMPRESSION: No diffusion restriction to suggest acute cerebral ischemia. No acute intracranial hemorrhage. Electronically signed by: Maury Phelps M.D. 03/19/25 22:25 PM
[2025-03-19] MEDS: SUVOREXANT PO SCH ×2 (22:34→22:55)
[2025-03-19] MEDS: SODIUM CHLORIDE 0.9% 1,000 ML IV SCH (22:53)
[2025-03-19] MEDS: HEPARIN SOD 5,000 UNIT/0.5 ML VIAL SQ SCH (22:54)
--- OUTSIDE RECORDS SUMMARY | 2025-03-20 03:45 | External Medical Summary | Summary of Care ---
Author Name Unknown Organization [facility] Address [address] [place] [address] Phone [phone] Care Team Providers Care Ict Managers Name Role Phone Neva Samayoa MD Primary Care Provider [phone] Reason for Visit * Reason Onset Date Comments Advice 03/19/2025 Encounter Details Date Type Department Care Team (Late st Contact Info) Description 03/19/2025 Telephone [facility], [facility] [address] [place] [phone] Connie Gonzalez DO [address] [place] [address] Advice Allergies Active Allergy Reactions Criticality Noted Date [...] as of this encounter (statuses as of 03/19/2025) Medications Suvorexant 20 MG Oral Tablet Take [...] Active Additional Information Patient taking differently:650 mg [id number] PRN, Pain, Breakthrough, Fever >38C(100.5F), Reported on 03/05/2025 Thyroid 30 MG Oral Tablet ([place] Thyroid)Indication s:Primary hypothyroidism one pill twice a day 180 Tablet 3 04/11/20 24 Active Additional Information Patient not taking.Reported on 02/27/2025 Losartan Potassium 25 MG Oral Tablet (Cozaar)Indication s:HTN, goal below 130/80 Take 0.5 Tablets by mouth in the morning. 45 Tablet 3 04/21/20 24 Active Vitamin D (Ergocalciferol) 1.25 MG (66841 UT) Oral Capsule (Drisdol)Indicatio ns:Senile osteoporosis Take [...] as of this encounter (statuses as of 03/19/2025) Active Problems Problem Noted Date Diagnosed Date History of ST elevation myocardial infarction (S DANIEL) 04/04/2024 Dyslipidemia, goal LDL below 70 04/04/2024 HTN, goal below 130/80 04/04/2024 Primary hypothyroidism 04/04/2024 Coronary artery disease invo lving [place] coronary artery of [place] heart without angina pectoris 08/13/2023 Diabetes mellitus [...] as of this encounter (statuses as of 03/19/2025) Resolved Problems Problem Noted Date Diagnosed Date [...] as of this encounter (statuses as of 03/19/2025) Immunizations Name Administration Dates Next Due COVID-19 [...] encounter Miscellaneous Notes * Telephone Encounter - Lisa Tai CRNP - 03/19/2025 1:19 PM EDT Will need to wait for ED evaluation findings before making any further recommendation. Can you please follow up on her in the next few days and if she needs an ED f/u visit , please route to schedulers to set up appt JENNIFER Rueda * Telephone Encounter - Samira Piedra CMA - 03/19/2025 10:48 AM EDT Spoke with pts spouse RE: message below. He believes pt is having a reaction to meds prescribed forH pylori. Reports pt having diarrhea and confusion. Pt currently at [facility] ED for evaluation. Spouse asking for further recommendations for reaction and tx of h pylori. * Telephone Encounter - Yolanda Hill CPhT - 03/19/2025 9:03 AM EDT Incoming call from patient's spouse requesting to speak with a nurse in regards to side effects patient is experience with medications that were prescribed for H pylori infection. Please reach out tocaller at [phone] to advise. Thank you, Yolanda Hill CPhT Ob Scrub Tech II [facility] 03/19/2025,9:04 AM * Telephone Encounter - Edna Diaz PHARM Tech - 03/19/2025 8:58 AM EDT Pt calling in with some concerns on pt and meds from gastro/hepatology. Transferred to specialty line for assistance. Thank You, Edna Diaz CPhT Radio Repairer Domestic II [facility] 03/19/2025, 8:59 AM documented in this encounter Plan of Treatment Upcoming Encounters Date Type Department Care Team (Late st Contact Info) Description 04/12/2025 10:30 AM EDT Nurse Only Rheumatology Alfred[facility] Mc[facility] [place] [address] [place] [phone] Nurse Andreina Mcghee [address] [place] [address] 04/18/2025 8:00 AM EDT Office Visit Cardiology, [facility] [place] [address] [place] [phone] Enedina Nogueira CRNP [address] [place] [address] 07/25/2025 11:00 AM EDT Office Visit [facility], [facility] [address] [place] [phone] Connie Stephens CRNP [address] [place] [address] Scheduled Procedures Name Priority Associated Diagnoses Date/Ti me COLONOSCOPY FLEXIBLE PROXIMA L DIAGNOSTIC Recall Family history of colon cancer Health Maintenance Due Date Last Done Comments DISCUSS TOBACCO CESSATION (REFER TO SMARTSET #7150) 1963 Depression Monitoring 1975 HIV Screening 1978 [...] D LEVEL ONCE IN A LIFETIME-USE SMARTSET# [id number] Completed 01/26/2025, 08/11/2024, 04/04/2024, Additional history exists [...] filedocumented as of this encounter Care Teams Ict Managers Relationship Specialty Start Date End Date Neva Samayoa MD [address] [place] [address] PCP - General Family Medicine 11/30/24 documented as of this encounter
--- OUTSIDE RECORDS SUMMARY | 2025-03-20 03:45 | External Medical Summary | Summary of Care ---
Author Name Unknown Organization [facility] Address [address] [place] [address] Phone [phone] Care Team Providers Care Transportation Modeler Name Role Phone Neva Samayoa MD Primary Care Provider [phone] Reason for Visit * Reason Onset Date Comments Advice 03/19/2025 Encounter Details Date Type Department Care Team (Late st Contact Info) Description 03/19/2025 Telephone Gastroenterology, [facility] [address] [place] [phone] Connie Gonzalez DO [address] [place] [address] Advice Allergies Active Allergy Reactions Criticality Noted [...] Active Additional Information Patient taking differently:650 mg [id number] PRN, Pain, Breakthrough, Fever >38C(100.5F), Reported on 03/05/2025 Thyroid 30 MG Oral Tablet ([place] Thyroid)Indication s:Primary hypothyroidism one pill twice a day 180 Tablet 3 04/11/20 24 Active Additional Information Patient not taking.Reported on 02/27/2025 Losartan Potassium 25 MG Oral Tablet (Cozaar)Indication s:HTN, goal below 130/80 Take 0.5 Tablets by mouth in the morning. 45 Tablet 3 04/21/20 24 Active Vitamin D (Ergocalciferol) 1.25 MG (33953 UT) Oral Capsule (Drisdol)Indicatio ns:Senile osteoporosis Take [...] hypothyroidism 04/04/2024 Coronary artery disease invo lving [place] coronary artery of [place] heart without angina pectoris 08/13/2023 Diabetes mellitus [...] having diarrhea and confusion. Pt currently at [facility] ED for evaluation. Spouse asking for further recommendations for reaction and tx of h pylori. * Telephone Encounter - Yolanda Hill CPhT - 03/19/2025 9:03 AM EDT Incoming call from patient's spouse requesting to speak with a nurse in regards to side effects patient is experience with medications that were prescribed for H pylori infection. Please reach out sanya at [phone] to advise. Thank you, Yolanda Hill CPhT Tool And Die Maker/Designer II [facility] 03/19/2025,9:04 AM * Telephone Encounter - Edna Diaz PHARM Tech - 03/19/2025 8:58 AM EDT Pt calling in with some concerns on pt and meds from gastro/hepatology. Transferred to specialty line for assistance. Thank You, Edna Diaz CPhT Hairspring Adjuster II [facility] 03/19/2025, 8:59 AM documented in this encounter Plan of Treatment Upcoming Encounters Date Type Department Care Team (Late st Contact Info) Description 04/12/2025 10:30 AM EDT Nurse Only Rheumatology [facility] [address] [place] [phone] Taz, Nurse Rheum [facility] [address] [place] [address] 04/18/2025 8:00 AM EDT Office Visit Cardiology, [facility] [address] [place] [phone] Enedina Nogueira CRNP [address] [place] [address] [place] [address] 07/25/2025 11:00 AM EDT Office Visit Gastroenterology, [facility] [address] [place] [phone] Connie Stephens CRNP [address] [place] [address] Scheduled Procedures Name Priority Associated Diagnoses Date/Ti me COLONOSCOPY FLEXIBLE PROXIMA L DIAGNOSTIC Recall Family history of colon cancer Health Maintenance Due Date Last Done Comments DISCUSS TOBACCO CESSATION (REFER TO SMARTSET #5681) 1965 Depression Monitoring 1975 HIV Screening 1978 [...] D LEVEL ONCE IN A LIFETIME-USE SMARTSET# [id number] Completed 01/26/2025, 08/11/2024, 04/04/2024, Additional history exists [...] filedocumented as of this encounter Care Teams Transportation Modeler Relationship Specialty Start Date End Date Neva Samayoa MD [address] [place] [address] PCP - General Family Medicine 11/30/24 documented as of this encounter
--- OUTSIDE RECORDS SUMMARY | 2025-03-20 03:45 | External Medical Summary | Summary of Care ---
Author Name Unknown Organization [facility] Address [address] [place] [address] Phone [phone] Care Team Providers Care [employer] Guidance Counselor Name Role Phone Neva Samayoa MD Primary Care Provider [phone] Reason for Visit * Reason Onset Date Comments Advice 03/19/2025 Encounter Details Date Type Department Care Team (Late st Contact Info) Description 03/19/2025 Telephone Gastroenterology, [facility] [address] [place] [phone] Connie Gonzalez DO [address] [place] [address] Advice Allergies Active Allergy Reactions Criticality Noted [...] Active Additional Information Patient taking differently:650 mg [id number] PRN, Pain, Breakthrough, Fever >38C(100.5F), Reported on 03/05/2025 Thyroid 30 MG Oral Tablet ([place] Thyroid)Indication s:Primary hypothyroidism one pill twice a day 180 Tablet 3 04/11/20 24 Active Additional Information Patient not taking.Reported on 02/27/2025 Losartan Potassium 25 MG Oral Tablet (Cozaar)Indication s:HTN, goal below 130/80 Take 0.5 Tablets by mouth in the morning. 45 Tablet 3 04/21/20 24 Active Vitamin D (Ergocalciferol) 1.25 MG (64164 UT) Oral Capsule (Drisdol)Indicatio ns:Senile osteoporosis Take [...] hypothyroidism 04/04/2024 Coronary artery disease invo lving [place] coronary artery of [place] heart without angina pectoris 08/13/2023 Diabetes mellitus [...] having diarrhea and confusion. Pt currently at [facility] ED for evaluation. Spouse asking for further recommendations for reaction and tx of h pylori. * Telephone Encounter - Yolanda Hill CPhT - 03/19/2025 9:03 AM EDT Incoming call from patient's spouse requesting to speak with a nurse in regards to side effects patient is experience with medications that were prescribed for H pylori infection. Please reach out tocaller at [phone] to advise. Thank you, Yolanda Hill CPhT Stockroom Associate II [facility] 03/19/2025,9:04 AM * Telephone Encounter - Edna Diaz PHARM Tech - 03/19/2025 8:58 AM EDT Pt calling in with some concerns on pt and meds from gastro/hepatology. Transferred to specialty line for assistance. Thank You, Edna Diaz CPhT Cross Country And Track And Field Coach II [facility] 03/19/2025, 8:59 AM documented in this encounter Plan of Treatment Upcoming Encounters Date Type Department Care Team (Late st Contact Info) Description 04/12/2025 10:30 AM EDT Nurse Only Rheumatology Alfredo Mcghee [place] [address] [place] [phone] Nurse Andreina Mcghee [address] [place] [address] 04/18/2025 8:00 AM EDT Office Visit Cardiology, [facility]o Mcg[facility] [place] [address] [place] [phone] Enedina Nogueira CRNP [address] [place] [address] 07/25/2025 11:00 AM EDT Office Visit Gastroenterology, [facility] [address] [place] [phone] Connie Stephens CRNP [address] [place] [address] Scheduled Procedures Name Priority Associated Diagnoses Date/Ti me COLONOSCOPY FLEXIBLE PROXIMA L DIAGNOSTIC Recall Family history of colon cancer Health Maintenance Due Date Last Done Comments DISCUSS TOBACCO CESSATION (REFER TO SMARTSET #4596) 1965 Depression Monitoring 1975 HIV Screening 1978 [...] D LEVEL ONCE IN A LIFETIME-USE SMARTSET# [id number] Completed 01/26/2025, 08/11/2024, 04/04/2024, Additional history exists [...] filedocumented as of this encounter Care Teams [employer] Guidance Counselor Relationship Specialty Start Date End Date Neva Samayoa MD [address] [place] [address] PCP - General Family Medicine 11/30/24 documented as of this encounter
--- OUTSIDE RECORDS SUMMARY | 2025-03-20 03:46 | External Medical Summary | Summary of Care ---
Author Name Unknown Organization [facility] Address [address] [place] [address] Phone [phone] Care Team Providers Care Neuropsychology Director Name Role Phone Neva Samayoa MD Primary Care Provider [phone] Reason for Visit * Reason Onset Date Comments Advice 03/19/2025 Encounter Details Date Type Department Care Team (Late st Contact Info) Description 03/19/2025 Telephone Gastroenterology, [facility] [address] [place] [phone] Connie Gonzalez DO [address] [place] [id number] Advice Allergies Active Allergy Reactions Criticality Noted [...] Active Additional Information Patient taking differently:650 mg [id number] PRN, Pain, Breakthrough, Fever >38C(100.5F), Reported on 03/05/2025 Thyroid 30 MG Oral Tablet (Kensett Thyroid)Indication s:Primary hypothyroidism one pill twice a day 180 Tablet 3 04/11/20 24 Active Additional Information Patient not taking.Reported on 02/27/2025 Losartan Potassium 25 MG Oral Tablet (Cozaar)Indication s:HTN, goal below 130/80 Take 0.5 Tablets by mouth in the morning. 45 Tablet 3 04/21/20 24 Active Vitamin D (Ergocalciferol) 1.25 MG (44725 UT) Oral Capsule (Drisdol)Indicatio ns:Senile osteoporosis Take [...] hypothyroidism 04/04/2024 Coronary artery disease invo lving enterprise coronary artery of enterprise heart without angina pectoris 08/13/2023 Diabetes mellitus [...] encounter Miscellaneous Notes * Telephone Encounter - Yolanda Hill CPhT - 03/19/2025 9:03 AM EDT Incoming call from patient's spouse requesting to speak with a nurse in regards to side effects patient is experience with medications that were prescribed for H pylori infection. Please reach out sanya at [phone] to advise. Thank you, Yolanda Hill CPhT Claims Account Specialist [facility] 03/19/2025,9:04 AM * Telephone Encounter - Edna Diaz PHARM Tech - 03/19/2025 8:58 AM EDT Pt calling in with some concerns on pt and meds from gastro/hepatology. Transferred to specialty line for assistance. Thank You, Edna Diaz mining professionals Collection Card Clerk [facility] 03/19/2025, 8:59 AM documented in this encounter Plan of Treatment Upcoming Encounters Date Type Department Care Team (Late st Contact Info) Description 04/12/2025 10:30 AM EDT Nurse Only Rheumatology [facility] [address] [place] [phone] [place] Nurse Andreina [facility] [address] [place] [id number] 04/18/2025 8:00 AM EDT Office Visit Cardiology, [facility] [address] [place] [phone] Enedina Nogueira CRNP [address] [place] [address] [place] [address] 07/25/2025 11:00 AM EDT Office Visit Gastroenterology, [facility] [address] [place] [phone] Connie Stephens CRNP [address] [place] [address] Scheduled Procedures Name Priority Associated Diagnoses Date/Ti me COLONOSCOPY FLEXIBLE PROXIMA L DIAGNOSTIC Recall Family history of colon cancer Health Maintenance Due Date Last Done Comments DISCUSS TOBACCO CESSATION (REFER TO SMARTSET #6040) 1963 Depression Monitoring 1975 HIV Screening 1978 [...] D LEVEL ONCE IN A LIFETIME-USE SMARTSET# 34043 Completed 01/26/2025, 08/11/2024, 04/04/2024, Additional history exists [...] filedocumented as of this encounter Care Teams Neuropsychology Director Relationship Specialty Start Date End Date Neva Samayoa MD [address] [place] [address] PCP - General Family Medicine 11/30/24 documented as of this encounter
[2025-03-20 04:30] LABS: Basophils # (auto) 0.04 K/uL (0.00-0.20); Basophils % (auto) 0.5 %; Eosinophils # (auto) 0.24 K/uL (0.00-0.50); Hematocrit (blood only) 38.7 % (37.0-47.0); Hemoglobin 12.7 g/dl (12.0-16.0); Immature Granulocytes # (auto) 0.02 K/uL (0.01-0.20); Immature Granulocytes % (auto) 0.3 %; Lymphocytes % (auto) 42.8 %; Mean Corpuscular Hemoglobin 27.6 pg (25.0-34.0); Mean Corpuscular Hgb Conc 32.8 g/dL (32.0-36.0); Mean Corpuscular Volume 84.1 fL (80.0-100.0); Mean Platelet Volume 9.3 fL (9.4-12.4); Monocytes # (auto) 0.55 K/uL (0.11-0.59); Monocytes % (auto) 6.9 %; Neutrophils % (auto) 46.5 %; Platelet Count 263 K/uL (130-400); RDW Standard Deviation 45.9 fL (36.4-46.3); White Blood Count 7.95 K/ul (4.8-10.8)
[2025-03-20 04:46] LABS: BUN Creatinine Ratio 14.3 (10-20); Calcium 8.8 mg/dl (8.6-10.3); Creatinine Clr Calc Pharmacy 67.2 ml/min; Potassium 3.4 mmol/L (3.5-5.1)
[2025-03-20 05:01] LABS: Thyroid Stimulating Hormone 1.43 uIu/ml (0.300-4.500)
[2025-03-20 07:05] VITALS: BP 115/66; PULSE 79; RESP 16; TEMP 98.1; O2SAT 96
[2025-03-20] MEDS: ATORVASTATIN 40 MG TAB PO SCH (08:06)
[2025-03-20] MEDS: PANTOprazole 40 MG TAB PO SCH (08:07)
[2025-03-20] MEDS: ASPIRIN 81 MG ECTAB PO SCH (08:07)
[2025-03-20] MEDS: LINACLOTIDE 145 MCG CAPSULE PO SCH (08:07)
--- NOTE | 2025-03-20 10:52 | Discharge Summary ---
Discharge Summary Date of Service March 20, 2025 Principal Dx & Hospital Course #1 = Principal Diagnosis (1) Toxic encephalopathy: Due to Flagyl (2) DMII (diabetes mellitus, type 2): (3) H. pylori infection: (4) PTSD (post-traumatic stress disorder): (5) Depressed: Plan Patient 59-year-old female presented to the emergency room with increasing confusion. It seems to have coincided with the initiation of treatment for H. pylori. Patient was admitted to the hospital. No other etiologies were found for her confusion. The treatment for H. pylori was held. There is discussion of whether it could have been some of her medications she uses for mental health disorders. She states that she has tolerated them for years and there is been no changes in the dosages recently. Metronidazole which she is on for the H. pylori infection can cause confusion and encephalopathy. With the cessation of this medication her encephalopathy cleared. On the day of discharge vital statements are stable. is at the bedside states that she is back to her baseline mentation. She can be discharged home. We discussed transitioning her treatment for H. pylori to the Vonopaza and Amoxil. She will contact her GI team with an update. And follow-up with her outpatient providers. Notes For Next Care Provider Medication Changes From Visit H. pylori treatment transition to amoxicillin and Vonopraza Admission HPI Per Admitting Provider History obtained from chart review and interview with the patient Medical history of type 2 diabetes mellitus, hyperlipidemia, hypothyroidism, nocturnal hypoxia, CAD, hypertension, irritable bowel syndrome, osteoporosis, depression, PTSD, insomnia, Patient presents to the hospital with her with evaluation for Periods of confusion where she gets disoriented and speaks of nonrelevant topic out of con text. Patient and her reports that the symptoms gradually progressed after initiation of treatment for H. pylori about 10 days ago. She is able to answer questions appropriately and she was oriented to self, time and place. She reports tiredness; denies any fever, neck rigidity, visual changes, weakness/numbness of any body part, chest pain or shortness of breath. She had EGD on 03/05; no significant finding; was started on treatment for H. pylori with Flagyl, tetracycline, omeprazole and bismuth subsalicylate Admission Exam Per Admitting Provider See H&P Discharge Exam Constitutional: Alert HEENT: Mucous membranes moist. Lungs: Clear to auscultation, decreased, no wheezes rales or rhonchi CV: S1-S2, regular Abdomen: Soft, nontender, nondistended Extremities: No significant edema Neuro: No focal deficits Psych: Cooperative, normal mood Updated Medication List Medication Instructions Recorded Confirmed Type dicyclomine 20 mg tablet 20 mg PO QID PRN IBS 10/03/18 03/19/25 History lorazepam 0.5 mg tablet 0.5 mg PO TID PRN anxiety 09/05/20 03/19/25 History suvorexant 20 mg tablet (Belsomra) 20 mg PO HS PRN Sleep 09/05/20 03/19/25 History buspirone 15 mg tablet 22.5 mg PO QID 07/28/23 03/19/25 History cholecalciferol (vitamin D3) 1,250 50,000 unit PO FR@0900 07/28/23 03/19/25 History mcg (50,000 unit) capsule denosumab 60 mg/mL subcutaneous See Rx Instructions .Route .COMPLEX 07/28/23 03/19/25 History syringe (Prolia) omeprazole 40 mg capsule,delayed 40 mg PO DAILY 07/28/23 03/19/25 History release progesterone micronized 200 mg 400 mg PO HS PRN Other 07/28/23 03/19/25 History capsule linaclotide 290 mcg capsule 290 mcg PO DAILY 07/29/23 03/19/25 History (Linzess) quetiapine 300 mg tablet 300 mg PO HS 07/30/23 03/19/25 History aspirin 81 mg tablet,delayed 81 mg PO QAM #30 tabs 08/07/23 03/19/25 Rx release atorvastatin 80 mg tablet 80 mg PO DAILY #30 tabs 08/07/23 03/19/25 Rx tirzepatide 7.5 mg/0.5 mL 7.5 mg subcut WK 03/19/25 03/19/25 History subcutaneous pen injector (Black) amoxicillin 500 mg tablet 1,000 mg (2 x 500 mg) PO TID 14 03/20/25 Rx days #84 tabs vonoprazan 20 mg tablet (Voquezna) 20 mg PO BID 14 days #28 tabs 03/20/25 Rx Hospital Stay Data Consultations 03/19/25 16:07 ED Decision to Admit Stat 03/19/25 17:29 Consult Neurology Routine Diagnostic Imagining Performed 03/19/25 11:26 CT abd pelvis IV con only Stat CT angio head w con Stat CT angio neck with con Stat CT head/brain wo con Stat 03/19/25 20:08 MRI Brain [MR brain wo/w con] Routine Reviewed imaging, laboratory and diagnostic studies. Pertinent findings as below. MRI of the brain showed no significant abnormalities or evidence of ischemia CTA of head and neck showed no significant stenosis or large vessel occlusion Vitamin B12 271 TSH 1.43 Pending Results Patient Have Any Pending Studies at Discharge: No Discharge Instructions Given to Patient (Per Discharging Provider) The new regimen for your H. pylori infection may be expensive. 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 They may have samples or other suggestions. Total Time Total Time Spent Total Time Spent (In Minutes): 26
--- NOTE | 2025-03-20 11:05 | Neurology Consultation ---
Date of Consultation March 20, 2025 Assessment & Plan (1) Toxic encephalopathy: Episode of encephalopathy -likely metabolic now resolved Possibly medication induced, low concern for seizure Continue frequent neurological assessments Obtain stat CT brain without contrast for any acute neurological decline Continue to monitor/control blood pressure & blood glucose Continue to monitor telemetry closely Continue to monitor renal and hepatic function, keep euvolemic Agree with metabolic workup to include checking vitamin levels, and supplement if neccassary Okay from neurology perspective for VTE prophylaxis Recommend No Driving Follow up with Neurology (2) Ground glass opacity present on imaging of lung: Agree with recommendations for continued follow up imaging Telehealth Consultation Telehealth Information Telehealth Information: I performed this visit using a real-time telehealth connection between my location and the patients location ([facility]). After connecting through interactive tele-video, patient was identified by name and date of and/or wristband check.Patient (or authorized healthcare account maintenance representative) was informed that this was a telemedicine visit and it was being conducted confidentially over secure lines. My office door was closed and no one else was present in the room with me.Patient (or authorized healthcare account maintenance representative) provided consent to proceed with the visit, expressed an understanding of privacy and security of the telemedicine visit, and gave permission to have a hospital account maintenance representative in the room in order to assist with the visit and to conduct portions of the visit, as needed. I informed the patient (or authorized healthcare account maintenance representative) that I reviewed their record and presented the opportunity for them to ask any questions regarding the visit today. The patient agreed to participate. History of Present Illness Reason for Consultation: Intermittent episode of confusion Requesting Physician: Dr. Cortez Attending Physician: Teddy Cortez DO History of Present Illness 59yo female presented to ER with several days of progressive confusion. Reportedly began medications for H pylori on Monday 03/12 but by Wednesday reports noticing some confusion mild and reports of dizziness. This quickly escalated overnight Wednesday and Wednesday. Then on Wednesday symptoms were worse and by overnight Wednesday she was reportedly very confused. She is notably already taking lorazepam, quetiapine and suvorexant. Denies other medication changes. No reported changes in sleep diet exercise/activity. Denies recent travel or sick contacts. There was reported diarrhea but no reported fever. Her and at bedside believe strongly that the H Pylori medications caused this exacerbation. She has never had symptoms like this in the past. She denies visual auditory olfactory gustatory or gastrointestinal sensation leading up to the event. But she notably cannot recall most events leading up to hospitalization. No reported tongue biting or loss of bowels or bladder. No reported hx of seizure or head trauma. She has undergone imaging including CT brain without contrast, personally reviewed today, revealing no overt evidence of hemorrhage. CT angiographic studies of head and neck, also personally reviewed today, reveal no overt evidence of large vessel occlusion or significant/flow limiting stenosis. There is noted ground glass nodularities bilateral upper lobes-agree with continued follow up. She has undergone MRI brain with and without contrast revealing no evidence of acute ischemic stroke and no overt evidence of acute intracranial abnormality. I have performed televideo consultation. She is alert & oriented; able to answer all questions appropriately, name objects on televideo monitor, repeat phrases and perform complex/embedded commands without deficit. Neurological exam is non lateralizing/nonfocal in terms of motor strength and coordination. She is agreeable to no driving, will continue to monitor symptoms and plan for follow up with Neurology outpatient. Allergies Allergy/AdvReac Type Severity Reaction Status Date / Time egg Allergy Unknown HIVES, Verified 09/05/20 10:21 FACIAL SWELLING metronidazole AdvReac Severe Confusion Verified 03/20/25 10:54 clarithromycin AdvReac Intermediate Gastrointestinal Verified 03/20/25 10:54 Upset codeine AdvReac Unknown ABDOMINAL Verified 09/05/20 10:21 PAIN-IBS morphine AdvReac Unknown ABDOMINAL Verified 09/05/20 10:21 PAIN-IBS Opioids - Morphine Analogues AdvReac Unknown Nausea Verified 07/28/23 06:39 Home Medications Medication Instructions Recorded Confirmed Type dicyclomine 20 mg tablet 20 mg PO QID PRN IBS 10/03/18 03/19/25 History lorazepam 0.5 mg tablet 0.5 mg PO TID PRN anxiety 09/05/20 03/19/25 History suvorexant 20 mg tablet (Belsomra) 20 mg PO HS PRN Sleep 09/05/20 03/19/25 History buspirone 15 mg tablet 22.5 mg PO QID 07/28/23 03/19/25 History cholecalciferol (vitamin D3) 1,250 50,000 unit PO FR@0900 07/28/23 03/19/25 History mcg (50,000 unit) capsule denosumab 60 mg/mL subcutaneous See Rx Instructions .Route .COMPLEX 07/28/23 03/19/25 History syringe (Prolia) omeprazole 40 mg capsule,delayed 40 mg PO DAILY 07/28/23 03/19/25 History release progesterone micronized 200 mg 400 mg PO HS PRN Other 07/28/23 03/19/25 History capsule linaclotide 290 mcg capsule 290 mcg PO DAILY 07/29/23 03/19/25 History (Linzess) quetiapine 300 mg tablet 300 mg PO HS 07/30/23 03/19/25 History aspirin 81 mg tablet,delayed 81 mg PO QAM #30 tabs 08/07/23 03/19/25 Rx release atorvastatin 80 mg tablet 80 mg PO DAILY #30 tabs 08/07/23 03/19/25 Rx tirzepatide 7.5 mg/0.5 mL 7.5 mg subcut WK 03/19/25 03/19/25 History subcutaneous pen injector (Black) amoxicillin 500 mg tablet 1,000 mg (2 x 500 mg) PO TID 14 03/20/25 Rx days #84 tabs vonoprazan 20 mg tablet (Voquezna) 20 mg PO BID 14 days #28 tabs 03/20/25 Rx Patient History Medical History Stress fracture Depressed PTSD (post-traumatic stress disorder) Surgical History H/O kyphoplasty History of heart artery stent History of cardiac cath Social History Smoking Status: Never smoker Tobacco Type: Cigarettes Second Hand Exposure: No; Do You Dip or Chew Tobacco: No; Hx Alcohol Use: Yes Alcohol type: wine Hx Substance Use: No Preferred Language: Romanian Communication Ability: Effective Sap Technical Architect Required: Yes Beliefs That Will Affect Care: None Current Living Situation: Spouse Current Living Situation Comment: lives with spouse in 2 story house current occupation: retired Other Information That Helps Us Care for You: No Feels Safe at Home: Yes Safety Concerns: Feels Safe At This Time Assistive Devices: None Assistive Devices Comment: reading glasses only Physical Exam Neurological Examination: Mental Status: Awake and alert. Oriented to person, place, and time. Fluency naming repetition and comprehension appear grossly intact. Affect remains appropriate. CN testing: I: Denies changes in ability to smell II:Reports no changes in visual acuity III/IV/: No evidence of gaze preference, hippus, nystagmus or roving eye movements V: Facial sensation reportedly grossly intact to light touch bilaterally VII: Facial movements appear without evidence of asymmetry VIII: Hearing appears grossly intact to loud voice bilaterally IX/X: Palate appears to elevate symmetrically XI: Shoulder shrug appears symmetric/ grossly intact bilaterally XII: Tongue protrudes midline without evidence of biting Motor exam: Strength appears grossly intact/symmetric in all extremities Sensory: Sensation is reportedly grossly intact throughout Coordination: Finger to nose and heel to florence were intact. No apparent evidence of dysmetria or dysdiadochokinesia Reflexes: Deferred Gait: Deferred Results & Data Vital Signs (Past 12 Hours) Vital Signs Temp Pulse Resp BP Pulse Ox O2 Del Method 03/20/25 07:04 36.7 C 79 16 115/66 96 Room Air Laboratory Results Abnormal lab results 03/19/25 03/20/25 Range/Units 10:22 04:07 RDW Std Deviation 46.7 H (36.4-46.3) fL RDW Coeff of Sharla 15.1 H 15.0 H (11.5-14.5) % MPV 9.3 L (9.4-12.4) fL Potassium 3.4 L (3.5-5.1) mmol/L Chloride 114 H 111 H (98-107) mmol/L Carbon Dioxide 20 L (21-32) mmol/L BUN/Creatinine Ratio 28.6 H (10-20) Glucose 102 H (70-99(Fasting)) mg/dl Diagnostic Findings Chest X-Ray 03/19/25 11:13 XR chest 1V portable HISTORY: 59 years-old Female Chest pain, nonspecific COMPARISON: 08/10/2023 TECHNIQUE: AP view of the chest FINDINGS: Cardiomediastinal and hilar silhouettes are within normal limits. Atherosclerosis of the aorta. No pneumothorax, pleural effusion or airspace consolidation. The bones of the chest appear grossly intact. IMPRESSION: No acute process. ACT 112: Negative or not required by law. The above report was generated using voice recognition software. It may contain grammatical, syntax or spelling errors. Electronically signed by: Jose Stahl M.D. 03/19/2025 12:23 PM Abdomen/Pelvis CT 03/19/25 11:[address] WITH IV CONTRAST HISTORY: Acute generalized abdominal pain with diarrhea abd pain, diarrhea, nausea TECHNIQUE: Multiaxial CT images of the abdomen and pelvis were performed following the IV administration of 120 cc of Optiray, A dose lowering technique was utilized adhering to the principles of ALARA. COMPARISON STUDY: 08/02/2023 FINDINGS: No acute process identified within the imaged lower chest. No pneumatosis or pneumoperitoneum. Unremarkable spleen, and pancreas. There is a lobular soft tissue attenuating lesion within the subcapsular left hepatic lobe on image 42 series 11 measuring 2.3 x 1.4 cm with Hounsfield 57, likely unchanged from the prior study. Patency of the hepatic and portal veins. Cholecystectomy with likely postsurgical biliary ductal dilation again noted. Stable appearance of the adrenal glands with probable adenomata. No hydronephrosis. Unremarkable urinary bladder. Subcentimeter probable cysts of the left kidney. Atherosclerosis of the aorta without aneurysm. No lymphadenopathy. There is no bowel obstruction or bowel wall thickening. Diastases recti with tiny fat filled umbilical and unchanged mild adjacent inflammatory stranding/postoperative change. Scattered large and small bowel air-fluid levels. The appendix is not seen. Degenerative changes of the spine, pelvis and hips. Chronic thoracolumbar compression deformities. IMPRESSION: 1. No bowel obstruction or bowel wall thickening. 2. Cholecystectomy with unchanged biliary ductal dilation. 3. Diastases recti with tiny fat filled umbilical hernia. 4. Chronic findings as above. ACT 112: Negative or not required by law. The above report was generated using voice recognition software. It may contain grammatical, syntax or spelling errors. Electronically signed by: Jose Stahl M.D. 03/19/2025 1:[address] 03/19/25 11:26 CT SCAN OF THE BRAIN WITHOUT IV CONTRAST CLINICAL HISTORY: Altered mental status. Confusion. COMPARISON STUDY: Head CT September 05, 2020. TECHNIQUE: Unenhanced axial CT scan of the brain was performed from the vertex to the skull base. A dose lowering technique was utilized adhering to the pr inciples of ALARA. FINDINGS: Brain parenchyma: No acute intracranial hemorrhage, midline shift or mass effect is present. Valle-white matter differentiation is preserved. There are no extra- axial fluid collections. There are no findings to suggest acute dural sinus thrombosis or acute territorial infarct. Ventricles, sulci, cisterns: There is no hydrocephalus. The basal cisterns are patent. Calvarium: Unremarkable. Sinuses and mastoids: The visualized paranasal sinuses are clear. The mastoid air cells are well pneumatized. Orbits: The bony orbits are grossly intact. IMPRESSION: No acute intracranial findings. ACT 112: Negative or not required by law. Electronically signed by: Stephen Sosa M.D. 03/19/2025 12:45 PM Head CTA 03/19/25 11:26 CTA ANGIOGRAPHY OF THE HEAD CLINICAL HISTORY: Confusion. COMPARISON STUDY: Head CT September 05, 2020. TECHNIQUE: Helical axial images of the head were obtained following uneventful intravenous administration of Optiray. Sagittal and coronal reconstructions were viewed as well as maximal intensity projections on an independent 3-D workstation. Automated exposure control was utilized for the study. A dose lowering technique was utilized adhering to the principles of ALARA. FINDINGS: Please note that the head CT will be reported separately. No acute intracranial hemorrhage, midline shift or mass effect is present. Ventricular system is unremarkable. Basal cisterns are patent. There are no extra axial collections. The bilateral M1, M2, A1 and A2 segments are patent. No intr acranial aneurysm, dissection or aneurysm. There is moderate calcified atherosclerotic plaque within the cavernous carotids without significant stenosis. Posterior circulation is intact. IMPRESSION: No large vessel occlusion. No intracranial aneurysm. ACT 112: Negative or not required by law. Electronically signed by: Stephen Sosa M.D. 03/19/2025 12:56 PM Neck CTA 03/19/25 11:26 CT angio neck with con CLINICAL HISTORY: 59 years-old Female with confusion. Acutely altered mental status COMPARISON STUDY: Head CT and CTA head studies of same day, CTA chest 07/28/2023, chest CT 02/07/2017 TECHNIQUE: Following the IV administration of Optiray, CT angiogram of the neck was performed from the aortic arch to the skull base. Images are reviewed in the axial, sagittal, and coronal planes. 3-D MIPS images are created and assessed. IV contrast was administered without complication. All measurements were calculated based on NASCET criteria. A dose lowering technique was utilized adhering to the principles of ALARA. CT DOSE: 2300.99 mGy.cm FINDINGS: Three-vessel morphology of the thoracic aortic arch. There is patency of the innominate and subclavian arteries. Moderate atherosclerosis of the carotid bulbs causes less than 50% narrowing bilaterally. The imaged internal carotid arteries are patent. The vertebral arteries are codominant and widely patent bilaterally. Patent basilar artery. 6 mm groundglass nodular focus of the left upper lobe on image 61 series 7, not clearly seen on the prior studies. There are a few additional similar appearing groundglass subcentimeter nodular foci seen within the right upper lobe. No acute cervical spine fracture. Multilevel moderate to severe facet arthrosis. IMPRESSION: 1. CTA of the neck demonstrates no aneurysm, dissection, high-grade stenosis or arterial occlusion. 2. Subtle subcentimeter groundglass nodular foci of the upper lungs, likely infectious or inflammatory. A 3-6 month follow-up chest CT is recommended. ACT 112: Negative or not required by law. The above report was generated using voice recognition software. It may contain grammatical, syntax or spelling errors. Electronically signed by: Jose Stahl M.D. 03/19/2025 12:59 PM Brain MRI 03/19/25 20:08 Exam(s): MRI HEAD W/WO Contrast IV Amt: 6cc gadavist EXAM: MR Head Without and With Intravenous Contrast CLINICAL HISTORY: Reason for exam: confusion. TECHNIQUE: Magnetic resonance images of the head/brain without and with intravenous contrast in multiple planes. CONTRAST: Patient received 6cc gadavist of IV contrast COMPARISON: CT head, CTA head 03/19/25 FINDINGS: Brain: No diffusion restriction to suggest acute cerebral ischemia. No acute intracranial hemorrhage. Intracranial flow voids appear normal. Mild cortical cerebral volume loss. Scattered foci of FLAIR signal hyperintensity in the cerebral white matter in keeping with mild chronic small vessel ischemic change. No intracranial mass or abnormal enhancement. Ventricles: Unremarkable. No hydrocephalus. Bones/joints: Unremarkable. No acute fracture. Sinuses: Unremarkable as visualized. Mastoid air cells: Unremarkable as visualized. No mastoid effusion. Orbits: Unremarkable as visualized. IMPRESSION: No diffusion restriction to suggest acute cerebral ischemia. No acute intracranial hemorrhage. Electronically signed by: Maury Phelps M.D. 03/19/25 22:25 PM Medications Administered Home Medications Medication Instructions Recorded Confirmed Last Taken dicyclomine 20 mg tablet 20 mg PO QID PRN IBS 10/03/18 03/19/25 10/02/18 lorazepam 0.5 mg tablet 0.5 mg PO TID PRN anxiety 09/05/20 03/19/25 Unknown suvorexant 20 mg tablet (Belsomra) 20 mg PO HS PRN Sleep 09/05/20 03/19/25 Unknown buspirone 15 mg tablet 22.5 mg PO QID 07/28/23 03/19/25 Unknown cholecalciferol (vitamin D3) 1,250 50,000 unit PO FR@0900 07/28/23 03/19/25 Unknown mcg (50,000 unit) capsule denosumab 60 mg/mL subcutaneous See Rx Instructions .Route .COMPLEX 07/28/23 03/19/25 Unknown syringe (Prolia) omeprazole 40 mg capsule,delayed 40 mg PO DAILY 07/28/23 03/19/25 Unknown release progesterone micronized 200 mg 400 mg PO HS PRN Other 07/28/23 03/19/25 Unknown capsule linaclotide 290 mcg capsule 290 mcg PO DAILY 07/29/23 03/19/25 Unknown (Linzess) quetiapine 300 mg tablet 300 mg PO HS 07/30/23 03/19/25 Unknown aspirin 81 mg tablet,delayed 81 mg PO QAM #30 tabs 08/07/23 03/19/25 Unknown release atorvastatin 80 mg tablet 80 mg PO DAILY #30 tabs 08/07/23 03/19/25 Unknown tirzepatide 7.5 mg/0.5 mL 7.5 mg subcut WK 03/19/25 03/19/25 Unknown subcutaneous pen injector (Black) amoxicillin 500 mg tablet 1,000 mg (2 x 500 mg) PO TID 14 03/20/25 Unknown days #84 tabs vonoprazan 20 mg tablet (Voquezna) 20 mg PO BID 14 days #28 tabs 03/20/25 Unknown Active Medications Generic Name Dose Route Start Last Admin Trade Name Freq PRN Reason Stop Dose Admin Aspirin 81 mg 03/20/25 09:00 03/20/25 08:07 Aspirin 81 Mg Ectab PO 04/19/25 08:59 81 mg QAM STEPHAN Administration Atorvastatin Calcium 80 mg 03/20/25 09:00 03/20/25 08:06 Atorvastatin 40 Mg Tab PO 04/19/25 08:59 80 mg DAILY STEPHAN Administration Buspirone HCl 22.5 mg 03/19/25 21:00 03/20/25 08:06 Buspirone 7.5 Mg Tab PO 04/18/25 20:59 22.5 mg QID STEPHAN Administration Heparin Sodium (Porcine) 5,000 units 03/19/25 22:00 03/20/25 05:31 Heparin Sod 5,000 Unit/0.5 Ml Vial SQ 04/18/25 21:59 Not Given Q8 STEPHAN Sodium Chloride 1,000 mls @ 80 mls/hr 03/19/25 17:30 03/20/25 05:31 Nss IV 03/20/25 17:29 Not Given .[id number] STEPHAN Linaclotide 290 mcg 03/20/25 09:00 03/20/25 08:07 Linaclotide 145 Mcg Capsule PO 04/19/25 08:59 290 mcg DAILY STEPHAN Administration Lorazepam 0.5 mg 03/19/25 20:08 03/20/25 08:20 Lorazepam 0.5 Mg Tab PO 04/18/25 20:07 0.5 mg TID PRN Administration anxiety Pantoprazole Sodium 40 mg 03/20/25 09:00 03/20/25 08:07 Pantoprazole 40 Mg Tab PO 04/19/25 08:59 40 mg DAILY STEPHAN Administration Quetiapine Fumarate 300 mg 03/19/25 21:00 03/19/25 20:49 Quetiapine Fumarate 300 Mg Tablet PO 04/18/25 20:59 300 mg HS STEPHAN Administration
--- NOTE | 2025-03-22 08:58 | Electrocardiogram Report ---
Test Reason : Blood Pressure : */* mmHG Vent. Rate : 85 BPM Atrial Rate : 85 BPM P-R Int : 130 ms QRS Dur : 86 ms QT Int : 364 ms P-R-T Axes : -2 20 26 degrees QTcB Int : 433 ms Normal sinus rhythm Low voltage QRS Borderline ECG When compared with ECG of 10-Aug-2023 16:29, No significant change was found Confirmed by Seth Latham ([id number]) on 03/22/2025 8:57:44 AM Referred By: REFERRED SELF Confirmed By: Seth Latham
[2025-03-23] MEDS ORDERED: ERGOCALCIFEROL 1250 MCG (50,000 UNITS) CAP PO SCH (09:00)
== END 2025-03-20 12:51 | disposition home or self-care (01) | DRG 93 ==
LOC: ED 09:56 → EDINP 17:29 → SUATTDRO 17:29 → INTOOBSV 17:29 → 3W 20:09

== ENCOUNTER 2025-10-27 23:51 | Inpatient (IN) ==
--- NOTE | 2025-10-28 00:22 | Emergency Department Note ---
Impression & Plan Back pain, Abdominal pain, Anaphylactic reaction ED Provider Note CHIEF COMPLAINT: Back pain HISTORY OF PRESENTING ILLNESS: The patient is a pleasant 60-year-old female with past medical history osteoporosis, lumbar compression fracture, IBS, CA, adrenal nodule, DM2, who arrives to the emergency department for evaluation of low back pain. Patient states she was here on , and had x-ray imaging performed, which showed no concerning findings. Patient reports he has history of compression fractures, due to osteoporosis. She states she was recently in [place], and was dealing with her luggage, which strained her low back. She states since that time the pain has gone from the mid low back with radiating to the bilateral hips, extending up to the mid back. She states no further injury. She reports no saddle anesthesia, loss of bowel or bladder, or weakness of the lower extremities. She reports some diffuse lower abdominal pain. She denies diarrhea, constipation, or dysuria. She appears uncomfortable upon examination, however hemodynamically stable. REVIEW OF SYSTEMS: See HPI for pertinent positives and pertinent negatives. ALLERGIES: See below MEDICATIONS: See below PAST MEDICAL HISTORY: See below PHYSICAL EXAM: VITALS: Vitals are noted on the nurse's note and reviewed by myself. Vital signs stable. GENERAL: Back pain, in no acute distress, nondiaphoretic, well-developed well- nourished. SKIN: The skin was without rashes, erythema, edema, or bruising. HEAD: Normocephalic atraumatic. HEART: Regular rate and rhythm without murmurs gallops or rubs. LUNGS: Clear to auscultation bilaterally without wheezes, rales or rhonchi. No retractions or accessory muscle use. ABDOMEN: Positive bowel sounds x 4. Soft, diffuse tenderness to palpation lower abdomen, no rebound tenderness or guarding. MUSCULOSKELETAL: Bilateral lower extremity positive SLR, sensation intact to dull and sharp BLE, DP pulse intact BLE, strength 5/5. NEURO: Patient was alert and oriented to person place and time. No focal neurological deficits. DIFFERENTIAL DIAGNOSIS: Musculoskeletal, disc herniation, fracture, metastatic disease, cord compression, discitis, sciatica, cauda equina, infection, aortic disease, renal colic, gastrointestinal, as well as other pathologies. ED COURSE AND MEDICAL DECISION MAKING: HISTORY FROM INDEPENDENT HISTORIAN: at bedside secondary historian MEDICATIONS GIVEN: 1 L NSS bolus, 10 mg IV dexamethasone, 15 mg IV Toradol, 500 mg p.o. methocarbamol, 1000 mg p.o. acetaminophen, topical Lidoderm 1 L IV fluids, via pressure bag. 0.3 mg IM epinephrine, 50 mg IV Benadryl, 125 mg IV Solu-Medrol, 20 mg IV Pepcid 160 mg IV succinylcholine, 30 mg IV etomidate, 5 mg IV Versed, 100 mcg IV fentanyl INTERPRETATION OF LABS: I interpreted the labs with full lab results as below in the lab section of this note. Pertinent lab results discussed in the MDM section below. INTERPRETATION OF IMAGING: Imaging studies were interpreted by myself and read by radiology as per the imaging section of this note. MDM SUMMARY: The patient is a pleasant, 60-year-old female who arrives to the emergency department for evaluation of the above-stated complaint. Saline lock was established, basic lab work was obtained. Lab work shows no leukocytosis, no anemia. CMP is unremarkable. Urinalysis shows 2+ blood however, otherwise unremarkable. Patient was provided IV fluids, and IV pain control as noted above. CT imaging of the abdomen and pelvis with IV contrast, as well as CT imaging of the lumbar spine was obtained due to patient's concern for low back pain and dull low abdominal pain to rule out intraabdominal process. The patient arrived to the room via transport from [place] with severe respiratory distress. I was immediately notified by nursing staff of the situation and my attending and myself proceeded directly to the patient's room. The patient appears to be having anaphylaxis likely due to CT contrast and cyanotic. I began to bag the patient to improve the patient's oxygen saturation level which was showing minimal improvement. Verbal orders placed for IV fluids, IM epinephrine, IV Benadryl, and IV solu-medrol as well as IV Pepcid. A nasal airway was placed by myself to assist with ventilation which then did show slight improvement. The patient oxygen saturation was improving, howevr, the patient remained unresponsive and required intubation. Please refer to Dr. Pa's documentation for intubation procedure note. The patient was stabilized with secured airway, and placed on mechanical ventilation by LIMOUSINE AND HEARSE UPHOLSTERER at bedside. Nasogastric tube and Allred catheter ordered as well as post intubation xray imaging. The patient was sedated with 5mg IVP versed, and 100mcg IVP fentanyl. I was notified by nursing staff, the patient was having an episode of hypotension. IV push dose epi verbal order given with patient becoming hypertensive. The patient was observed through multiple cycles of blood pressure which then began to normalize. No intervention was indicated at that time. The patient was presented to Dr. Isaacs for admission to the ICU. We discussed the likely cause of the event and he preferred I defer sedation orders to the ICU provider. I spoke with JENNIFER Carmichael regarding the concern for true anaphylaxis and the need for careful management of BP with sedatives. He recommended fentanyl for sedation, and epinephrine for BP support if needed. An order for IV fentanyl drip was placed and started. Dr. Isaacs and Aldair Byers arrived at bedside shortly after for patient evaluation. The patient did again become hypotensive, epinephrine drip order was placed and started. The patient was then transported to the ICU with nursing staff, LIMOUSINE AND HEARSE UPHOLSTERER, and voip technician. CT imaging resulted after patient disposition, showing stable hepatomegaly, prominent intra and extrahepatic biliary ducts, likely postcholecystectomy. Multiple adrenal hypoenhancing nodules, which are stable, as well as atelectatic bands seen in the right middle lobe and lingula with patchy areas of ground glass attenuation and mild interlobular septal thickening in the basal segments of the lungs. CT imaging of the lumbar spine shows diffusely decreased density of the visualized bones, consistent with osteoporosis. There are persistently seen with collapse and changes of prior vertebroplasty in the L2 vertebral body. There is also stable mild partial collapse and central wedging along the superior endplates of L4 and L5 vertebral bodies. Notations of the lobulated nodular left granular gland and interval onset of similar-appearing changes seen in the left adrenal gland on CT imaging of the abdomen and pelvis also persistently seen. The patient's case was discussed with Dr. Pa, who agreed with my evaluation and treatment plan. DIAGNOSIS: Back pain, abdominal pain, anaphylactic reaction I have personally spent greater than 75 minutes of critical care time in the direct management of this patient. This includes bedside care, interpretation of diagnostic studies, and testing, discussion with consultants, patient, and family members, and other required patient management activities. This 75 minutes is in excess of all separately billable procedures. The chart was completed utilizing [employer] voice recognition software. Grammatical errors, random word insertions, pronoun errors, and incomplete sentences are an occasional consequence of this system due to software limitations, ambient noise, and hardware issues. Any formal questions or concerns about the content, text, or information contained within the body of this dictation should be directly addressed to the provider for clarification. Past Med/Surg History Problem List (Updated 10/28/25 @ 22:52 by JENNIFER Gallego) Anaphylactic reaction (Acute) Strain of lumbar region (Acute) Lumbar strain (Acute) Lumbar pain (Acute) Diarrhea (Acute) Ground glass opacity present on imaging of lung H. pylori infection Toxic encephalopathy Confusion (Acute) Confusion Pseudoaneurysm Mobitz type 1 second degree AV block (Acute) Acute CA, inferior wall (Acute) Hypothyroidism DMII (diabetes mellitus, type 2) Adrenal nodule Dyslipidemia Bradycardia Abdominal pain (Acute) Acute myocardial infarction involving right coronary artery Infiltrate of both lungs present on imaging study Pneumonia (Acute) Contusion of rib on right side (Acute) Calcific bursitis (Acute) Benzodiazepine dependence (Acute) Irritable bowel syndrome Compression fracture of lumbar vertebra (Acute) Back pain (Acute) Lumbar compression fracture (Acute) Hematoma pseudoaneurysm of femoral artery following cardiac catheterization Anxiety (Acute) Vitamin D insufficiency Osteoporosis Medical History Stress fracture Depressed PTSD (post-traumatic stress disorder) Surgical History H/O kyphoplasty History of heart artery stent History of cardiac cath Social History Smoking Status: Current every day smoker Tobacco Type: Cigarettes Cigarettes Per Day: 0.5 pack/day; Second Hand Exposure: No; Do You Dip or Chew Tobacco: No; Hx Alcohol Use: No Hx Substance Use: Yes Preferred Language: Arabic Communication Ability: Effective Manager Mac Required: No Beliefs That Will Affect Care: None Current Living Situation: Spouse Current Living Situation Comment: lives with spouse in 2 story house current occupation: retired Feels Safe at Home: Yes Assistive Devices: Glasses Allergies Allergies Allergy/AdvReac Type Severity Reaction Status Date / Time egg Allergy Severe HIVES, Verified 10/28/25 00:55 FACIAL SWELLING Iodinated Contrast Media Allergy Severe Anaphylaxis Verified 10/28/25 03:34 metronidazole AdvReac Severe Confusion Verified 10/28/25 00:55 clarithromycin AdvReac Intermediate Gastrointestinal Verified 10/28/25 00:55 Upset codeine AdvReac Intermediate ABDOMINAL Verified 10/28/25 00:55 PAIN-IBS morphine AdvReac Intermediate ABDOMINAL Verified 10/28/25 00:55 PAIN-IBS Opioids - Morphine Analogues AdvReac Mild Nausea Verified 10/28/25 00:55 Home Meds Home Medications Medication Instructions Recorded Confirmed dicyclomine 20 mg tablet 20 mg PO DIRECTED PRN IBS 10/03/18 10/28/25 suvorexant 20 mg tablet (Belsomra) 20 mg PO HS Sleep 09/05/20 10/28/25 buspirone 15 mg tablet 15 mg PO QID 07/28/23 10/28/25 denosumab 60 mg/mL subcutaneous 60 mg subcut DIRECTED 07/28/23 10/28/25 syringe (Prolia) omeprazole 40 mg capsule,delayed 40 mg PO DAILYBB 07/28/23 10/28/25 release linaclotide 290 mcg capsule 290 mcg PO QAM 07/29/23 10/28/25 (Linzess) quetiapine 300 mg tablet 300 mg PO HS 07/30/23 10/28/25 atorvastatin 80 mg tablet 80 mg PO QAM 04/19/25 10/28/25 hyoscyamine sulfate 0.125 mg 0.125 mg PO QID PRN ABD PAIN IF 04/19/25 10/28/25 sublingual tablet CAN'T TOLERATE BENTYL lorazepam 1 mg tablet 1 mg PO HS 04/19/25 10/28/25 losartan 25 mg tablet 12.5 mg PO QAM 04/19/25 10/28/25 metoprolol succinate 25 mg 12.5 mg PO QAM 04/19/25 10/28/25 tablet,extended release 24 hr ezetimibe 10 mg tablet 10 mg PO QAM 05/06/25 10/28/25 hydrocortisone 2.5 % topical cream 1 applic topical BID PRN Skin 10/28/25 10/28/25 Irritation suvorexant 20 mg tablet 20 mg PO HS 10/28/25 10/28/25 Previous Rx's Medication Instructions Recorded aspirin 81 mg tablet,delayed 81 mg PO QAM #30 tabs 08/07/23 release phenazopyridine 200 mg tablet 200 mg PO Q8H PRN Pain 6 doses #6 05/06/25 (Pyridium) tabs cyclobenzaprine 5 mg tablet 5 - 10 mg (1 - 2 x 5 mg) PO Q8H 10/25/25 PRN muscle spasm #20 tabs oxycodone 5 mg tablet 5 mg PO Q6H PRN pain #10 tabs 10/25/25 prednisone 20 mg tablet 20 mg PO DIRECTED 9 days #18 10/25/25 tabs Results & Data (ED) Vital Signs Vital Signs - 24 hr 10/27/25 23:56 10/28/25 01:23 10/28/25 01:24 Temperature 36.5 C Temperature Source Temporal Artery Scan Pulse Rate 74 75 146 H Pulse Rate [Apical] Pulse Rate from SpO2 Sensor Pulse Rhythm [Apical] Respiratory Rate 16 Respiratory Effort / Characteristics Non-Labored Spontaneous Respiratory Depth Normal Blood Pressure 133/84 Blood Pressure [Left Arm] Blood Pressure Mean 100 Blood Pressure Mean [Left Arm] Blood Pressure Position Sitting Pulse Oximetry 98 Oxygen Delivery Method Room Air Fraction of Inspired Oxygen Sepsis Recent Fever Within 48 Hours No Sepsis New/Unexplained Change in Mental Status N/A Sepsis Action Taken by Nursing No Action Required 10/28/25 01:30 10/28/25 01:30 10/28/25 01:35 Temperature Temperature Source Pulse Rate 77 Pulse Rate [Apical] 139 H 109 H Pulse Rate from SpO2 Sensor Pulse Rhythm [Apical] Regular Respiratory Rate 24 20 16 Respiratory Effort / Characteristics Non-Labored Non-Labored Respiratory Depth Normal Normal Blood Pressure Blood Pressure [Left Arm] 168/113 H 185/97 H Blood Pressure Mean Blood Pressure Mean [Left Arm] 131 126 Blood Pressure Position Pulse Oximetry 97 93 91 Oxygen Delivery Method Ambu-Bag Mechanical Vent Fraction of Inspired Oxygen 100 Sepsis Recent Fever Within 48 Hours Sepsis New/Unexplained Change in Mental Status Sepsis Action Taken by Nursing 10/28/25 01:38 10/28/25 01:45 10/28/25 01:50 Temperature Temperature Source Pulse Rate 94 H Pulse Rate [Apical] 98 H Pulse Rate from SpO2 Sensor 94 H Pulse Rhythm [Apical] Regular Respiratory Rate 21 16 Respiratory Effort / Characteristics Mechanically Ventilated Respiratory Depth Blood Pressure 85/70 L Blood Pressure [Left Arm] 96/60 L Blood Pressure Mean 74 Blood Pressure Mean [Left Arm] 72 Blood Pressure Position Pulse Oximetry 84 L 94 92 Oxygen Delivery Method Mechanical Vent Mechanical Vent Mechanical Vent Fraction of Inspired Oxygen 100 Sepsis Recent Fever Within 48 Hours Sepsis New/Unexplained Change in Mental Status Sepsis Action Taken by Nursing 10/28/25 01:56 10/28/25 02:00 10/28/25 02:10 Temperature Temperature Source Pulse Rate 78 82 96 H Pulse Rate [Apical] Pulse Rate from SpO2 Sensor 96 H Pulse Rhythm [Apical] Respiratory Rate 20 18 20 Respiratory Effort / Characteristics Respiratory Depth Blood Pressure 236/103 H 192/98 H 128/75 Blood Pressure [Left Arm] Blood Pressure Mean 189 154 116 Blood Pressure Mean [Left Arm] Blood Pressure Position Pulse Oximetry 96 100 100 Oxygen Delivery Method Mechanical Vent Mechanical Vent Mechanical Vent Fraction of Inspired Oxygen 100 100 100 Sepsis Recent Fever Within 48 Hours Sepsis New/Unexplained Change in Mental Status Sepsis Action Taken by Nursing 10/28/25 02:15 10/28/25 02:20 10/28/25 02:25 Temperature Temperature Source Pulse Rate 88 85 82 Pulse Rate [Apical] Pulse Rate from SpO2 Sensor 88 85 82 Pulse Rhythm [Apical] Respiratory Rate 18 16 18 Respiratory Effort / Characteristics Respiratory Depth Blood Pressure 124/72 94/66 L 86/61 L Blood Pressure [Left Arm] Blood Pressure Mean 85 78 73 Blood Pressure Mean [Left Arm] Blood Pressure Position Pulse Oximetry 100 100 100 Oxygen Delivery Method Mechanical Vent Mechanical Vent Mechanical Vent Fraction of Inspired Oxygen 100 100 100 Sepsis Recent Fever Within 48 Hours Sepsis New/Unexplained Change in Mental Status Sepsis Action Taken by Nursing 10/28/25 02:25 10/28/25 02:30 10/28/25 02:41 Temperature Temperature Source Pulse Rate 82 83 91 H Pulse Rate [Apical] Pulse Rate from SpO2 Sensor 82 83 91 H Pulse Rhythm [Apical] Respiratory Rate 18 21 20 Respiratory Effort / Characteristics Respiratory Depth Blood Pressure 86/61 L 86/62 L 128/72 Blood Pressure [Left Arm] Blood Pressure Mean 73 70 91 Blood Pressure Mean [Left Arm] Blood Pressure Position Pulse Oximetry 100 100 100 Oxygen Delivery Method Mechanical Vent Mechanical Vent Mechanical Vent Fraction of Inspired Oxygen 100 100 100 Sepsis Recent Fever Within 48 Hours Sepsis New/Unexplained Change in Mental Status Sepsis Action Taken by Nursing 10/28/25 02:45 10/28/25 02:51 10/28/25 02:55 Temperature Temperature Source Pulse Rate 85 84 82 Pulse Rate [Apical] Pulse Rate from SpO2 Sensor 85 84 82 Pulse Rhythm [Apical] Respiratory Rate 17 19 20 Respiratory Effort / Characteristics Respiratory Depth Blood Pressure 86/60 L 75/55 L 146/111 H Blood Pressure [Left Arm] Blood Pressure Mean 68 61 134 Blood Pressure Mean [Left Arm] Blood Pressure Position Pulse Oximetry 100 100 100 Oxygen Delivery Method Mechanical Vent Fraction of Inspired Oxygen 100 Sepsis Recent Fever Within 48 Hours Sepsis New/Unexplained Change in Mental Status Sepsis Action Taken by Assisted Medications Current Medication List: was personally reviewed by me Laboratory Data Attestation: I reviewed the patient's lab results. 10/28/25 04:57 10/28/25 04:56 Lab Results 10/28/25 10/28/25 10/28/25 Range/Units 00:30 00:33 01:01 WBC 5.94 (4.8-10.8) K/ul RBC 4.44 (4.20-5.40) M/uL Hgb 13.0 (12.0-16.0) g/dL POC Hgb 13.3 (12.0-16.0) g/dl Hct 39.7 (37.0-47.0) % POC Hct 39 (37-47) % MCV 89.4 (80.0-100.0) fL MCH 29.3 (25.0-34.0) pg MCHC 32.7 (32.0-36.0) g/dL RDW Std Deviation 50.1 H (36.4-46.3) fL RDW Coeff of Sharla 15.1 H (11.5-14.5) % Plt Count 250 (130-400) K/uL MPV 10.0 (9.4-12.4) fL Immature Gran % (Auto) 0.5 % Neut % (Auto) 60.9 % Lymph % (Auto) 24.4 % [place] % (Auto) 9.1 % Eos % (Auto) 4.4 % Baso % (Auto) 0.7 % Neut # (Auto) 3.62 (1.40-6.50) K/uL Lymph # (Auto) 1.45 (1.20-3.40) K/uL [place] # (Auto) 0.54 (0.11-0.59) K/uL Eos # (Auto) 0.26 (0.00-0.50) K/uL Baso # (Auto) 0.04 (0.00-0.20) K/uL Immature Gran # (Auto) 0.03 (0.01-0.20) K/uL PT 9.8 (9.0-12.0) Seconds INR 0.9 (0.9-1.1) APTT 28 (21-31) Seconds PTT Ratio 1.0 POC Sodium 143 (135-144) mmol/L Sodium 138 (136-145) mmol/L POC Potassium 3.9 (3.3-5.0) mmol/L Potassium 3.8 (3.5-5.1) mmol/L POC Chloride 104 (101-112) mmol/L Chloride 106 (98-107) mmol/L Carbon Dioxide 25 (21-32) mmol/L POC Total CO2 23 L (24-31) mmol/L Anion Gap 7 (3-11) POC Anion Gap 20.0 (16-25) mmol/L POC BUN 10 (7-18) mg/dl BUN 11 (6-23) mg/dl Creatinine 0.89 (0.6-1.2) mg/dl POC Creatinine 1.1 (0.6-1.3) mg/dl Est Cr Clr Drug Dosing Not Reportable eGFR 73.26 BUN/Creatinine Ratio 12.4 (10-20) Glucose 162 H (70-99(Fasting)) mg/dl POC Glucose (other) 151 H (70-99) mg/dl Calcium 9.1 (8.6-10.3) mg/dl POC Ioniz Calcium Satinder 1.23 (1.12-1.32) mmol/l Magnesium 1.9 (1.7-2.4) mg/dl Total Bilirubin 0.2 (0.2-1.0) mg/dl AST 21 (13-39) U/L ALT 35 (7-52) U/L Alkaline Phosphatase 108 H (34-104) U/L Total Protein 7.2 (6.0-8.3) gm/dl Albumin 3.8 (3.4-5.0) gm/dl Globulin 3.4 (2.5-4.0) gm/dl Albumin/Globulin Ratio 1.1 (0.9-2) Administered Medications Aspirin (Aspirin 81 Mg Chew) 81 mg GT QAM [facility] Stop: 11/27/25 09:44 Last Admin: 10/28/25 10:00 Dose: 81 mg Documented By: RNC Atorvastatin Calcium (Atorvastatin 40 Mg Tab) 80 mg PO QAM [facility] Stop: 11/27/25 08:59 Last Admin: 10/28/25 09:09 Dose: 80 mg Documented By: RNC Diphenhydramine HCl (Diphenhydramine Hcl 25 Mg/10 Ml Udc) 25 mg NG Q6H [facility] Stop: 11/27/25 05:59 Last Admin: 10/28/25 17:23 Dose: 25 mg Documented By: Admin: 10/28/25 12:25 Dose: 25 mg Documented By: Admin: 10/28/25 05:08 Dose: 25 mg Documented By: MARIA T Ezetimibe (Ezetimibe 10 Mg Tab) 10 mg PO QAM [facility] Stop: 11/27/25 08:59 Last Admin: 10/28/25 09:09 Dose: 10 mg Documented By: BETTY Lactated Ringer's (Lr) 1,000 mls @ 75 mls/hr IV .[id number] [facility] Stop: 10/31/25 04:59 Last Infusion: 10/28/25 22:14 Dose: Infused Documented By: MARIA T Admin: 10/28/25 12:03 Dose: 125 mls/hr Documented By: RNRomi Infusion: 10/28/25 12:03 Dose: Infused Documented By: Admin: 10/28/25 05:00 Dose: 125 mls/hr Documented By: MARIA T Acetaminophen (Ofirmev) 1,000 mg in 100 mls @ 400 mls/hr IV Q8H PRN PRN Reason: As Needed for Fever or Pain Stop: 10/31/25 10:11 Last Infusion: 10/28/25 10:41 Dose: Infused Documented By: Admin: 10/28/25 10:26 Dose: 400 mls/hr Documented By: BETTY Dexmedetomidine/Sodium Chloride (Precedex) 200 mcg in 50 mls @ 11.918 mls/hr IV .Q4H12M [facility]; Protocol Stop: 11/01/25 11:29 Last Admin: 10/28/25 22:02 Dose: 0.7 mcg/kg/hr, 11.9 mls/hr Documented By: MARIA T Co-signed By: ALKA Titration: 10/28/25 22:02 Dose: Infused Documented By: MARIA T Co-signed By: JT Titration: 10/28/25 20:00 Dose: 0.7 mcg/kg/hr, 11.9 mls/hr Documented By: Titration: 10/28/25 19:57 Dose: 0 mcg/kg/hr, 0 mls/hr Documented By: Admin: 10/28/25 19:35 Dose: 0.7 mcg/kg/hr, 11.9 mls/hr Documented By: TLM Co-signed By: JT Titration: 10/28/25 19:35 Dose: Infused Documented By: TLM Co-signed By: JT Titration: 10/28/25 19:33 Dose: 0.7 mcg/kg/hr, 11.9 mls/hr Documented By: Admin: 10/28/25 18:14 Dose: Not Given Documented By: Titration: 10/28/25 18:01 Dose: 0.7 mcg/kg/hr, 11.9 mls/hr Documented By: Admin: 10/28/25 18:00 Dose: Not Given Documented By: Titration: 10/28/25 16:50 Dose: 0.6 mcg/kg/hr, 10.2 mls/hr Documented By: Admin: 10/28/25 16:14 Dose: 0.5 mcg/kg/hr, 8.5 mls/hr Documented By: Titration: 10/28/25 16:14 Dose: Infused Documented By: Titration: 10/28/25 15:34 Dose: 0.5 mcg/kg/hr, 8.5 mls/hr Documented By: Admin: 10/28/25 12:03 Dose: 0.4 mcg/kg/hr, 6.8 mls/hr Documented By: RNC Co-signed By: ZAKI Midazolam HCl (Versed) 125 mg in 250 mls @ 5 mls/hr IV .Q50H STEPHAN; Protocol Stop: 11/27/25 19:59 Last Titration: 10/28/25 22:04 Dose: 2.5 mg/hr, 5 mls/hr Documented By: TMG Co-signed By: VK Admin: 10/28/25 19:57 Dose: 2 mg/hr, 4 mls/hr Documented By: TLM Co-signed By: ALKA Magnesium Sulfate/Dextrose (Magnesium Sulfate / D5w) 1 gm in 100 mls @ 50 mls/hr IV Q2H [facility] Stop: 10/28/25 23:59 Last Admin: 10/28/25 20:52 Dose: 50 mls/hr Documented By: MARIA T Cefepime HCl (Maxipime 2000mg) 2,000 mg in 20 mls @ 5 mls/min IV Q12 [facility]; Protocol Stop: 10/30/25 20:59 Last Admin: 10/28/25 21:19 Dose: 5 mls/min Documented By: MARIA T Vancomycin HCl 1,500 mg/ (Sodium Chloride) 530 mls @ 200 mls/hr IV ONE ONE Stop: 10/28/25 23:23 Last Admin: 10/28/25 21:02 Dose: 200 mls/hr Documented By: MARIA T Sodium Bicarbonate 150 meq/ (Sterile Water) 1,150 mls @ 125 mls/hr IV .Q9H12M [facility] Stop: 11/27/25 20:59 Last Admin: 10/28/25 21:02 Dose: 125 mls/hr Documented By: MARIA T Insulin Aspart (Insulin Aspart Per Unit Charge) 0 units SC Q6 [facility] Stop: 11/27/25 05:59 Last Admin: 10/28/25 18:15 Dose: 1 units Documented By: RNRomi Co-signed By: DANYELLE Admin: 10/28/25 12:10 Dose: 5 units Documented By: RNC Co-signed By: SIERRA Admin: 10/28/25 05:08 Dose: 7 units Documented By: TMAbram Co-signed By: ALKA Midazolam HCl (Midazolam Hcl 1 Mg/Ml 2ml Vial) 1 mg IV Q2HWA PRN PRN Reason: Sedation Stop: 11/27/25 08:56 Last Admin: 10/28/25 17:00 Dose: 1 mg Documented By: Admin: 10/28/25 11:23 Dose: 1 mg Documented By: Admin: 10/28/25 09:08 Dose: 1 mg Documented By: RNC Discontinued Medications Acetaminophen (Acetaminophen 500 Mg Tab) 1,000 mg PO NOW STA Stop: 10/28/25 00:13 Last Admin: 10/28/25 02:53 Dose: Not Given Documented By: ANNA Aspirin (Aspirin 81 Mg Ectab) 81 mg PO QAM [facility] Stop: 11/27/25 08:59 Last Admin: 10/28/25 09:24 Dose: Not Given Documented By: BETTY Cyproheptadine HCl (Cyproheptadine Hcl 4 Mg Tab) 12 mg PO ONCE ONE Stop: 10/28/25 21:10 Last Admin: 10/28/25 21:54 Dose: 12 mg Documented By: MARIA T Dexamethasone Sodium Phosphate (DexamethasonePf 10 Mg/Ml Vial) 10 mg IV NOW ONE Stop: 10/28/25 00:11 Last Admin: 10/28/25 00:23 Dose: 10 mg Documented By: ANNA Diphenhydramine HCl (Diphenhydramine 50 Mg/Ml Vial) 50 mg IV ONCE ONE Stop: 10/28/25 02:00 Last Admin: 10/28/25 01:23 Dose: 50 mg Documented By: CARRINGTON Epinephrine HCl (Epinephrine Inj 1 Mg/Ml Vial) 0.3 mg IM ONCE ONE Stop: 10/28/25 01:58 Last Admin: 10/28/25 01:20 Dose: 0.3 mg Documented By: CARRINGTON Etomidate (Etomidate 2 Mg/Ml 20 Ml Vial) 30 mg IV ONCE ONE Stop: 10/28/25 02:01 Last Admin: 10/28/25 01:29 Dose: 30 mg Documented By: CARRINGTON Famotidine (Famotidine 20mg/5ml Iv Push) Confirm Administered Dose 20 mg IV .STK-MED ONE Stop: 10/28/25 01:27 Last Admin: 10/28/25 01:27 Dose: 20 mg Documented By: CARRINGTON Famotidine (Famotidine 20mg/5ml Iv Push) Confirm Administered Dose 20 mg IV .STK-MED ONE Stop: 10/28/25 01:27 Last Admin: 10/28/25 02:59 Dose: 20 mg Documented By: ANNA Fentanyl Citrate (Fentanyl Citrate Pf 100 Mcg/2 Ml Vial) 100 mcg IV NOW STA Stop: 10/28/25 01:42 Last Admin: 10/28/25 02:59 Dose: Not Given Documented By: ANNA Fentanyl Citrate (Fentanyl Citrate 2,500 Mcg/250 Ml Bag) Confirm Administered Dose 2,500 mcg IV .STK-MED ONE Stop: 10/28/25 01:46 Last Admin: 10/28/25 02:59 Dose: Not Given Documented By: ANNA Fentanyl Citrate (Fentanyl Bolus From Bag) 50 mcg IV Q60M PRN PRN Reason: Pain or Agitation Stop: 11/11/25 02:11 Last Admin: 10/28/25 19:58 Dose: 50 mcg Documented By: TLM Co-signed By: ALKA Admin: 10/28/25 16:55 Dose: 50 mcg Documented By: RNC Co-signed By: TRACY Admin: 10/28/25 10:52 Dose: 50 mcg Documented By: RNC Co-signed By: TRACY Admin: 10/28/25 02:42 Dose: 50 mcg Documented By: ANNA Co-signed By: OMUNA Sodium Chloride (Nss) 1,000 mls @ 999 mls/hr IV .Q1H1M ONE Stop: 10/28/25 01:10 Last Infusion: 10/28/25 03:12 Dose: Infused Documented By: Admin: 10/28/25 00:23 Dose: 999 mls/hr Documented By: ANNA Fentanyl Citrate (Fentanyl Citrate) 2,500 mcg in 250 mls @ 15 mls/hr IV .[id number] [facility]; Protocol Stop: 11/11/25 02:14 Last Titration: 10/28/25 21:27 Dose: Infused Documented By: MARIA T Co-signed By: ALKA Titration: 10/28/25 19:59 Dose: 150 mcg/hr, 15 mls/hr Documented By: STEPHANIE Co-signed By: ALKA Admin: 10/28/25 17:22 Dose: 125 mcg/hr, 12.5 mls/hr Documented By: RNC Co-signed By: TRACY Titration: 10/28/25 17:22 Dose: Infused Documented By: RNC Co-signed By: CB Titration: 10/28/25 09:55 Dose: 125 mcg/hr, 12.5 mls/hr Documented By: RNC Co-signed By: TRACY Titration: 10/28/25 03:01 Dose: 100 mcg/hr, 10 mls/hr Documented By: ANNA Co-signed By: MOUNA Admin: 10/28/25 02:18 Dose: 50 mcg/hr, 5 mls/hr Documented By: ANNA Co-signed By: LOLY Epinephrine HCl () 4 mg in 254 mls @ 25.375 mls/hr IV .Q10H1M STEPHAN; Protocol Stop: 11/27/25 02:44 Last Infusion: 10/28/25 21:00 Dose: Infused Documented By: TMG Co-signed By: TLM Infusion: 10/28/25 17:31 Dose: 0.04 mcg/kg/min, 10.2 mls/hr Documented By: RNC Co-signed By: TRACY Infusion: 10/28/25 15:46 Dose: 0.06 mcg/kg/min, 15.2 mls/hr Documented By: RNC Co-signed By: AMS Infusion: 10/28/25 14:46 Dose: 0.08 mcg/kg/min, 20.3 mls/hr Documented By: RNC Co-signed By: CB Admin: 10/28/25 12:02 Dose: 0.1 mcg/kg/min, 25.4 mls/hr Documented By: RNC Co-signed By: ZAKI Infusion: 10/28/25 12:02 Dose: Infused Documented By: RNC Co-signed By: JLM Infusion: 10/28/25 05:22 Dose: 0.08 mcg/kg/min, 20.3 mls/hr Documented By: TMAbram Co-signed By: STEPHANIE Admin: 10/28/25 02:51 Dose: 0.1 mcg/kg/min, 25.4 mls/hr Documented By: ANNA Co-signed By: MOUNA Sodium Chloride (Nss) 1,000 mls @ 999 mls/hr IV .Q1H1M ONE Stop: 10/28/25 03:54 Last Infusion: 10/28/25 05:25 Dose: Infused Documented By: MARIA T Admin: 10/28/25 03:00 Dose: 999 mls/hr Documented By: ANNA Sodium Chloride (Nss) 1,000 mls @ 125 mls/hr IV .Q8H STEPAHN Stop: 10/31/25 04:07 Last Admin: 10/28/25 05:25 Dose: Not Given Documented By: MARIA T Parenteral Electrolytes (Plasma-Lyte A Ph 7.4) 500 mls @ 999 mls/hr IV .Q31M ONE Stop: 10/28/25 14:00 Last Infusion: 10/28/25 14:09 Dose: Infused Documented By: Admin: 10/28/25 13:38 Dose: 999 mls/hr Documented By: RNC Dexamethasone 6 mg/ Syringe 1.5 mls @ 1 mls/min IV NOW STA Stop: 10/28/25 18:41 Last Admin: 10/28/25 20:46 Dose: 1 mls/min Documented By: MARIA T Lactated Ringer's (Lr) 1,000 mls @ 999 mls/hr IV .Q1H1M ONE Stop: 10/28/25 21:21 Last Infusion: 10/28/25 22:15 Dose: Infused Documented By: MARIA T Admin: 10/28/25 20:46 Dose: 999 mls/hr Documented By: MARIA T Thiamine HCl 300 mg/ Sodium (Chloride) 53 mls @ 210 mls/hr IV 2100 ONE Stop: 10/28/25 21:15 Last Infusion: 10/28/25 22:15 Dose: Infused Documented By: MARIA T Admin: 10/28/25 21:19 Dose: 210 mls/hr Documented By: MARIA T Insulin Glargine (Lantus Per Unit Charge) 20 units SC ONE ONE Stop: 10/28/25 11:46 Last Admin: 10/28/25 12:11 Dose: 20 units Documented By: RNC Co-signed By: SIERRA Ioversol (Optiray 320 125ml) 94 ml IV ONCE ONE Stop: 10/28/25 01:22 Last Admin: 10/28/25 01:21 Dose: 94 ml Documented By: JACQUELIN Ketorolac Tromethamine (Ketorolac Tromethamine 15 Mg/Ml Vial) 15 mg IV NOW ONE Stop: 10/28/25 00:11 Last Admin: 10/28/25 00:23 Dose: 15 mg Documented By: ANNA Lidocaine (Lidocaine 5% 1 Patch) 1 patch TD NOW STA Stop: 10/28/25 00:39 Last Admin: 10/28/25 00:43 Dose: 1 patch Documented By: shaka Methocarbamol (Methocarbamol 500 Mg Tablet) 500 mg PO NOW STA Stop: 10/28/25 00:11 Last Admin: 10/28/25 00:43 Dose: 500 mg Documented By: shaka Methylprednisolone (Methylprednisolone 125 Mg/2 Ml Vial) 125 mg IV ONCE ONE Stop: 10/28/25 01:59 Last Admin: 10/28/25 01:23 Dose: 125 mg Documented By: CARRINGTON Midazolam HCl (Midazolam Hcl 5 Mg/Ml 2ml Vial) 5 mg IV NOW STA Stop: 10/28/25 01:42 Last Admin: 10/28/25 02:59 Dose: Not Given Documented By: ANNA Midazolam HCl (Midazolam Hcl 5 Mg/Ml 2ml Vial) 5 mg IV NOW STA Stop: 10/28/25 02:07 Last Admin: 10/28/25 02:09 Dose: 5 mg Documented By: CARRINGTON Midazolam HCl (Midazolam Hcl 1 Mg/Ml 2ml Vial) 2 mg IV NOW STA Stop: 10/28/25 19:35 Last Admin: 10/28/25 20:00 Dose: 2 mg Documented By: STEPHANIE Midazolam HCl (Midazolam Hcl 5 Mg/Ml 2ml Vial) 5 mg IV NOW STA Stop: 10/28/25 19:46 Last Admin: 10/28/25 20:00 Dose: 5 mg Documented By: STEPHANIE Midazolam HCl (Midazolam Hcl 5 Mg/Ml 2ml Vial) Confirm Administered Dose 10 mg .ROUTE .STK-MED ONE Stop: 10/28/25 19:49 Last Admin: 10/28/25 20:02 Dose: Not Given Documented By: STEPHANIE Midazolam HCl (Midazolam Hcl 125mg/250ml D5w) Confirm Administered Dose 125 mg IV .STK-MED ONE Stop: 10/28/25 19:51 Last Admin: 10/28/25 20:01 Dose: Not Given Documented By: STEPHANIE Marieaneous (Stat Iv Infusion Titration Per Protocol) 1 each N/A NOW STA Stop: 10/28/25 02:13 Last Admin: 10/28/25 02:59 Dose: Not Given Documented By: ANNA Miscellaneous (Stat Iv/Im) 1 each N/A NOW STA Stop: 10/28/25 02:42 Last Admin: 10/28/25 03:00 Dose: Not Given Documented By: ANNA Norepinephrine Bitartrate (Norepinephrine/D5w 4 Mg/250 Ml) Confirm Administered Dose 4 mg IV .STK-MED ONE Stop: 10/28/25 20:43 Last Admin: 10/28/25 21:01 Dose: Not Given Documented By: MARIA T Sodium Bicarbonate (Sodium Bicarb 8.4% Inj 50 Meq/50 Ml Syr) 50 meq IV NOW STA Stop: 10/28/25 20:22 Last Admin: 10/28/25 20:45 Dose: 50 meq Documented By: MARIA T Sodium Bicarbonate (Sodium Bicarb 8.4% Inj 50 Meq/50 Ml Syr) Confirm Administered Dose 50 meq IV .STK-MED ONE Stop: 10/28/25 20:40 Last Admin: 10/28/25 20:45 Dose: Not Given Documented By: TMG Succinylcholine Chloride (Succinylcholine Chloride 20 Mg/Ml 10 Ml Vial) 160 mg IV ONCE ONE Stop: 10/28/25 02:00 Last Admin: 10/28/25 01:29 Dose: 160 mg Documented By: EMB Co-signed By: ANNA Imaging Data Attestation: I personally reviewed and interpreted this imaging study as follows: Discharge Plan Visit Data Chief Complaint: Back Injury/Pain Stated Complaint: BACK PAIN ED Provider: Yudelka Pa ED Midlevel Provider: Shraddha Neumann Discharge Problem: Back pain, Abdominal pain, Anaphylactic reaction Patient Disposition: Admitted As Inpatient Condition: Critical Discharge Instructions Interventions: ED Discharge Assessment Last Done: 10/28/25 04:20
[2025-10-28] MEDS: dexAMETHasone**PF** 10 MG/ML VIAL IV ONE (00:23)
[2025-10-28] MEDS: SODIUM CHLORIDE 0.9% 1,000 ML IV ONE ×2 (00:23→03:00)
[2025-10-28] MEDS: KETOROLAC TROMETHAMINE 15 MG/ML VIAL IV ONE (00:23)
[2025-10-28] MEDS: METHOCARBAMOL 500 MG TABLET PO STA (00:43)
[2025-10-28] MEDS: LIDOCAINE 5% 1 PATCH TD STA (00:43)
[2025-10-28 01:14] LABS: Hematocrit (blood only) 39.7 % (37.0-47.0); Hemoglobin 13.0 g/dL (12.0-16.0); Immature Granulocytes # (auto) 0.03 K/uL (0.01-0.20); Immature Granulocytes % (auto) 0.5 %; Mean Corpuscular Hemoglobin 29.3 pg (25.0-34.0); Mean Corpuscular Volume 89.4 fL (80.0-100.0); Platelet Count 250 K/uL (130-400); RDW Standard Deviation 50.1 fL (36.4-46.3); Red Blood Count 4.44 M/uL (4.20-5.40); White Blood Count 5.94 K/ul (4.8-10.8)
[2025-10-28] MEDS: OPTIRAY 320 125ml IV ONE (01:21)
[2025-10-28] MEDS: diphenhydrAMINE 50 MG/ML VIAL IV ONE (01:23)
[2025-10-28] MEDS: FAMOTIDINE 20MG/5ML IV PUSH IV ONE ×2 (01:27→02:59)
[2025-10-28] MEDS: SUCCINYLCHOLINE CHLORIDE 20 MG/ML 10 ML VIAL IV ONE (01:29)
[2025-10-28] MEDS: ETOMIDATE 2 MG/ML 20 ML VIAL IV ONE (01:29)
[2025-10-28 01:32] LABS: Alanine Aminotransferase 35 U/L (7-52); Albumin Globulin Ratio 1.1 (0.9-2); Albumin Level 3.8 gm/dl (3.4-5.0); Alkaline Phosphatase 108 U/L (34-104); Anion Gap 7 (3-11); Bilirubin,Total 0.2 mg/dl (0.2-1.0); Blood Urea Nitrogen 11 mg/dl (6-23); Calcium 9.1 mg/dl (8.6-10.3); Carbon Dioxide 25 mmol/L (21-32); Chloride 106 mmol/L (98-107); Globulin 3.4 gm/dl (2.5-4.0); Glucose 162 mg/dl (70-99(Fasting)); Potassium 3.8 mmol/L (3.5-5.1); Sodium 138 mmol/L (136-145); Total Protein 7.2 gm/dl (6.0-8.3)
[2025-10-28] MEDS: MIDAZOLAM HCL 5 MG/ML 2ML VIAL IV STA ×3 (02:09→20:00)
[2025-10-28 02:18] LABS: Magnesium 1.9 mg/dl (1.7-2.4)
[2025-10-28] MEDS: fentaNYL citrate 2,500 MCG/250 ML BAG IV SCH (02:18)
--- NOTE | 2025-10-28 02:43 | CT Scan Report ---
EXAM: CT abd pelvis IV con only CLINICAL HISTORY: diffuse abd pain TECHNIQUE: Multiple contiguous axial images were obtained from the level of diaphragm to the pubic symphysis. This study was acquired after the IV administration of iodinated contrast material, given the patient's indications for the examination. If IV contrast material had not been administered, the likelihood of detecting abnormalities relevant to the patient's condition would have been substantially decreased. Coronal and sagittal reformatted images were generated and reviewed to improve anatomic localization and optimize lesion detection. CT scan was performed according to ALARA (as low as reasonably achievable). COMPARISON: 04/27/2025 10:27:23 [employer]. FINDINGS: Atelectatic bands are seen in the right middle lobe and lingula. Patchy areas of ground-glass attenuation with mild interlobular septal thickening are seen in the basal segments of the lungs. The liver is enlarged in size and attenuation. No focal liver lesions are seen. There is mild prominence of intra- or extrahepatic biliary ducts. Common bile duct measures 1 mm in maximum diameter. Hepatic vasculature is patent. The gallbladder is not visualized. Surgical carole are seen in the gallbladder fossa region. The spleen and pancreas are unremarkable. The adrenal glands show well-defined hypoenhancing nodular lesions measuring 10-15 mm in size with average attenuation between 30-40 HU. The kidneys are normal in size and attenuation. There is no hydronephrosis or perinephric fat stranding. No renal calculi or renal masses are identified. The ureters are normal in caliber and no ureteral calculi are seen. The bladder is normal in contour. The uterus is unremarkable. No evidence of focal or diffuse bowel wall thickening or of bowel obstruction is seen. No evidence of inflamed appendix. No adenopathy or fluid collections are seen. A small umbilical hernia containing omental fat is seen. The aorta is normal in caliber. No aggressive appearing osseous lesions are identified. The L2 vertebral body shows moderate reduction in its height with hyperdense material within. IMPRESSION: 1. Hepatomegaly - stable. 2. Prominent intra- and extrahepatic biliary ducts - likely post-cholecystectomy status - stable. Advise liver function test correlation. 3. Multiple adrenal hypoenhancing nodules - stable. 4. Atelectatic bands are seen in the right middle lobe and lingula with patchy areas of ground-glass attenuation and mild interlobular septal thickening in the basal segments of the lungs - new. Advise chest CT with end-inspiratory view. Electronically signed by Ramon Koch 10-28-2025 02:43 AM
--- NOTE | 2025-10-28 02:44 | CT Scan Report ---
EXAM: CT lumbar spine w con CLINICAL HISTORY: pain TECHNIQUE: Multiple contiguous axial images were obtained through the lumbar spine without IV contrast. Sagittal and coronal reformatted images were obtained from the axial data. The CT scan was performed according to ALARA (as low as reasonably achievable). COMPARISON: 11/11/2016 13:34:17 PHARMACY ASSISTANT FINDINGS: The normal lordotic curvature of the lumbar spine is maintained. Persistent, mild scoliosis of the lumbar spine with concavity toward the right. Persistently seen, diffusely decreased density of the visualized bones, in keeping with osteoporosis/osteopenia. Persistently seen old collapse and changes of prior vertebroplasty in the L2 vertebral body. Stable, mild partial collapse - central wedging along the superior endplates of L4 and L5 vertebral bodies. The rest of the lumbar vertebral bodies are maintained in height and alignment. No vertebral destructive changes are seen. T11-T12: No significant disc bulge, severe or significant canal stenosis, or significant neuroforaminal narrowing. T12-L1: No significant disc bulge, severe or significant canal stenosis, or significant neuroforaminal narrowing. L1-L2: Mild posterior disc bulge,. No neuroforaminal narrowing. L2-L3: No significant disc bulge, severe or significant canal stenosis, or significant neuroforaminal narrowing. L3-L4: No significant disc bulge, severe or significant canal stenosis, or significant neuroforaminal narrowing. L4-L5: No significant disc bulge, severe or significant canal stenosis, or significant neuroforaminal narrowing. L5-S1: No significant disc bulge, severe or significant canal stenosis, or significant neuroforaminal narrowing. Paravertebral soft tissues are unremarkable. Persistently seen, diffusely enlarged, lobulated nodular left adrenal gland with interval onset of similar-appearing changes seen in the left adrenal gland on the present scan. IMPRESSION: 1. Persistently seen, diffusely decreased density of the visualized bones, in keeping with osteoporosis/osteopenia. 2. Persistently seen old collapse and changes of prior vertebroplasty in the L2 vertebral body. 3. Stable, mild partial collapse - central wedging along the superior endplates of L4 and L5 vertebral bodies. 4. Persistently seen, diffusely enlarged, lobulated nodular left adrenal gland with interval onset of similar-appearing changes seen in the left adrenal gland on the present scan. Electronically signed by Ramon Koch 10-28-2025 02:43 AM
[2025-10-28] MEDS ORDERED: [UNRECOGNIZED DRUG - OTHER] IV SCH (02:45)
[2025-10-28] MEDS ORDERED: STANDARD IV SCH (02:45)
[2025-10-28] MEDS: EPINEPHrine/NSS 4 MG/254 ML BAG IV SCH (02:51)
[2025-10-28] MEDS: ACETAMINOPHEN 500 MG TAB PO STA (02:53)
--- NOTE | 2025-10-28 02:58 | Critical Care Consultation ---
Date of Consultation October 28, 2025 Assessment & Plan (1) Anaphylactic reaction: (2) Lumbar pain: (3) Diarrhea: Plan Reason Critically Ill: 60 YOF presents to ICU following emergent intubation for hypoxia secondary to presumed anaphylactic shock from IV contrast. Now requ iring vasopressor support and mechanical ventilation. Neuro - Sedation for mechanical ventilation, acute on chronic back pain. HX: Mood disorder/anxiety [facility] ICU: JAY - Sedation for mechanical ventilation - fentanyl for now - goal RASS -1 - restraints to prevent self extubation - Follow neurological exam with reported cyanosis, hypoxia, and hypotension- currently moving all extremities, opens eyes to stimuli, localizes pain, follows simple commands Cardiac - Shock - distributive/anaphylaxis, HX: CAD - Hypotensive, bradycardic, hypoxic- during CT scan- presumed anaphylactic reaction secondary to IV contrast - Associated with facial swelling - Bradycardia reported as initial rhythm as well with pulse - likely secondary to hypoxia and hypercarbia- improved with BVM and intubation - Hypotension persistent following intubation- will continue epinephrine as unable to exclude possible rebound anaphylaxis vs. sedation or both - Saline 1L and continue at 125ml/hr to continue to facilitate dilution and elimination - wean vasopressor - Patient received Dexamethasone and solumederol- this should be adequate and dex will self wean - Benadryl 25mg q6 PO/NGT for 24 hours Respiratory - Hypoxic respiratory failure acute requiring emergent intubation and mechanical ventilation - Hopeful for extubation this morning if symptoms have resolved - at this time no noted tongue or lip swelling - however difficulty to appreciate secondary to ETT and OGT in place as well as securing device - evaluation of cuff leak recommended prior to extubation GI - diarrhea - history of IBS as well and reported adverse symptom of opioids per patient - continue Linzess RENAL/LYTES - no acute need - follow daily BMP and renal indices following hypotension and contrast - IVF and maintain MAPS >65 - follow ABG results currently pending EMIGDIO bauman while intubated and sedated ENDO - DMII - ICU hyperglycemic protocol- BG q6 hours goal <180mg/dl HEME - no acute need - see shock section - tryptase sent - should follow up with allergy as outpatient MSK: acute on chronic lumbar pain - history of compression fractures- could consider calcitonin nasal spray for pain if associated with osteopetrotic compression fracture - defer to home admitting team for further evaluation and treatment once patient is extubated ID - No concern at this time for infectious etiology LINES/IV ACCESS - PIV, bauman, ETT, OGT Continue use of these lines DVT PROPHYLAXIS - SCDS, Heparin sub q DISPO: ICU while intubated, sedated, and on vasopressors I have personally spent 45 minutes of critical care time in the direct management of this patient. This is a life/limb threatening event. This includes time spent evaluating patient, direct bedside care, chart review, placing orde rs, interpretation of diagnostic studies, discussion with consultants, patient, and family members, as well as other required patient management activities. This time is exclusive of all separately billable procedures, and teaching time and separate from and in addition to any other critical care service time. Thank you for allowing us to participate in the care of this patient. Please refer to my attending physician's documentation for any further recommendations. History of Present Illness Reason for Consultation: anaphylactic shock requiring emergent intubation vasopressors and mechanical ventilation Requesting Physician: Surjit Isaacs MD Attending Physician: Surjit Isaacs MD History of Present Illness 60 YOF with history of: Osteopetrosis, vertebral compression fractures, CAD with stent, DMII, HLD, mood disorder, hypothyroidism. Patient came to the ER today for complain of back pain for which she was seen earlier in the week for same complaint. Her initial back pain reportedly started while she was in [place] last week, and went to lift her suitcase. At that time she had a xray performed and was started on steroids, Flexeril, oxycodone. reports that she started the oxycodone and Tylenol, which gave her diarrhea but did not start the flexeril. She remained in pain today and came back to the ER- she was given IVF, dexamethasone, Toradol, Tylenol and lidoderm patch- as her pain persisted, she was sent for advanced imaging via CT scan with contrast of abd/pelvis and back. Following CT scan it was reported patient returned to her ER room in full distress, hypoxic, cyanotic, bradycardic, and hypotension. Was reported that she was diffusely wheezing on her pulmonary exam, she was given IM epi, IV epi, H2, Solumederol, and intubated via RSI with succinylcholine and etomidate. She remained hypotensive following intubation and required 2 more push dose pressors of epinephrine and therefore was initiated on epinephrine infusion. On evaluation in the ER, the patient was able to open her eyes to stimulation, was moving all her extremities, was without wheeze on exam and was ventilating and oxygenating appropriately on vent. She was noted to remain hypotensive as epinepherine infusion was being obtained from pharmacy. There was report from nursing staff that felt her face, ears, eyelids, and lips were swollen when compared to when she arrived. There were no wheels or hives noted, no rash, no sloughing of tissues, and no errythema noted. She will come to the ICU for continued hemodynamic and respiratory support and monitoring of resolution or rebound of symptoms. CODE: FULL Allergies Allergy/AdvReac Type Severity Reaction Status Date / Time egg Allergy Severe HIVES, Verified 10/28/25 00:55 FACIAL SWELLING Iodinated Contrast Media Allergy Severe Anaphylaxis Verified 10/28/25 03:34 metronidazole AdvReac Severe Confusion Verified 10/28/25 00:55 clarithromycin AdvReac Intermediate Gastrointestinal Verified 10/28/25 00:55 Upset codeine AdvReac Intermediate ABDOMINAL Verified 10/28/25 00:55 PAIN-IBS morphine AdvReac Intermediate ABDOMINAL Verified 10/28/25 00:55 PAIN-IBS Opioids - Morphine Analogues AdvReac Mild Nausea Verified 10/28/25 00:55 Home Medications Medication Instructions Recorded Confirmed Type dicyclomine 20 mg tablet 20 mg PO DIRECTED PRN IBS 10/03/18 10/28/25 History suvorexant 20 mg tablet (Belsomra) 20 mg PO HS Sleep 09/05/20 10/28/25 History buspirone 15 mg tablet 15 mg PO QID 07/28/23 10/28/25 History denosumab 60 mg/mL subcutaneous 60 mg subcut DIRECTED 07/28/23 10/28/25 History syringe (Prolia) omeprazole 40 mg capsule,delayed 40 mg PO DAILYBB 07/28/23 10/28/25 History release linaclotide 290 mcg capsule 290 mcg PO QAM 07/29/23 10/28/25 History (Linzess) quetiapine 300 mg tablet 300 mg PO HS 07/30/23 10/28/25 History aspirin 81 mg tablet,delayed 81 mg PO QAM #30 tabs 08/07/23 10/28/25 Rx release atorvastatin 80 mg tablet 80 mg PO QAM 04/19/25 10/28/25 History hyoscyamine sulfate 0.125 mg 0.125 mg PO QID PRN ABD PAIN IF 04/19/25 10/28/25 History sublingual tablet CAN'T TOLERATE BENTYL lorazepam 1 mg tablet 1 mg PO HS 04/19/25 10/28/25 History losartan 25 mg tablet 12.5 mg PO QAM 04/19/25 10/28/25 History metoprolol succinate 25 mg 12.5 mg PO QAM 04/19/25 10/28/25 History tablet,extended release 24 hr ezetimibe 10 mg tablet 10 mg PO QAM 05/06/25 10/28/25 History phenazopyridine 200 mg tablet 200 mg PO Q8H PRN Pain 6 doses #6 05/06/25 10/28/25 Rx (Pyridium) tabs cyclobenzaprine 5 mg tablet 5 - 10 mg (1 - 2 x 5 mg) PO Q8H 10/25/25 10/28/25 Rx PRN muscle spasm #20 tabs oxycodone 5 mg tablet 5 mg PO Q6H PRN pain #10 tabs 10/25/25 10/28/25 Rx prednisone 20 mg tablet 20 mg PO DIRECTED 9 days #18 10/25/25 10/28/25 Rx tabs hydrocortisone 2.5 % topical cream 1 applic topical BID PRN Skin 10/28/25 10/28/25 History Irritation suvorexant 20 mg tablet 20 mg PO HS 10/28/25 10/28/25 History Patient History Medical History Stress fracture Depressed PTSD (post-traumatic stress disorder) Surgical History H/O kyphoplasty History of heart artery stent History of cardiac cath Social History Smoking Status: Current every day smoker Tobacco Type: Cigarettes Cigarettes Per Day: 0.5 pack/day; Second Hand Exposure: No; Do You Dip or Chew Tobacco: No; Hx Alcohol Use: No Hx Substance Use: Yes Preferred Language: Cambodian Communication Ability: Effective Manager Organizational Required: No Beliefs That Will Affect Care: None Current Living Situation: Spouse Current Living Situation Comment: lives with spouse in 2 story house current occupation: retired Feels Safe at Home: Yes Assistive Devices: Glasses Review of Systems Review of Systems: unable to obtain secondary to intubation and sedation as per HPI Physical Exam Physical Exam: PHYSICAL EXAM: General: intubated and sedated ENT: PERRAL, EOMI, no pharyngeal exudate, mucous membranes moist Neuro: Sedated, intubated, moves all extremities spontaneously, localizes pain, Chest: equal rise and fall of the chest, no accessory muscle use, clear to auscultation bilaterally Cardiac: Regular rate and rhythm, telemetry reviewed- NSR - sinus tachycardia, skin warm dry, cap refill <3 seconds, peripheral pulses +2 no JVD, no murmur, no edema GI: NABS x 4 quadrants, soft, OGT to LIWS : bauman to gravity Skin: no rash or erythema Results & Data Results & Data Vital Signs (Past 12 Hours) Vital Signs Temp Pulse Pulse Resp BP BP Pulse Ox 10/28/25 02:25 82 18 86/61 L 100 10/28/25 02:20 85 16 94/66 L 100 10/28/25 02:15 88 18 124/72 100 10/28/25 02:10 96 H 20 128/75 100 10/28/25 02:00 82 18 192/98 H 100 10/28/25 01:56 78 20 236/103 H 96 10/28/25 01:50 94 H 16 85/70 L 92 10/28/25 01:45 98 H 21 96/60 L 94 10/28/25 01:38 84 L 10/28/25 01:35 109 H 16 185/97 H 91 10/28/25 01:30 77 20 93 10/28/25 01:30 139 H 24 168/113 H 97 10/28/25 01:24 146 H 10/28/25 01:23 75 10/27/25 23:56 36.5 C 74 16 133/84 98 O2 Del Method FiO2 10/28/25 02:25 Mechanical Vent 100 10/28/25 02:20 Mechanical Vent 100 10/28/25 02:15 Mechanical Vent 100 10/28/25 02:10 Mechanical Vent 100 10/28/25 02:00 Mechanical Vent 100 10/28/25 01:56 Mechanical Vent 100 10/28/25 01:50 Mechanical Vent 100 10/28/25 01:45 Mechanical Vent 10/28/25 01:38 Mechanical Vent 10/28/25 01:35 Mechanical Vent 10/28/25 01:30 100 10/28/25 01:30 Ambu-Bag 10/28/25 01:24 10/28/25 01:23 10/27/25 23:56 Room Air Laboratory Results Abnormal lab results 10/28/25 10/28/25 Range/Units 00:30 03:15 RDW Std Deviation 50.1 H (36.4-46.3) fL RDW Coeff of Sharla 15.1 H (11.5-14.5) % Glucose 162 H (70-99(Fasting)) mg/dl Alkaline Phosphatase 108 H (34-104) U/L Ur Specific [place] > 1.045 H (1.000-1.030) Urine Protein 1+ H (Negative) Urine Glucose (UA) 1+ H (Negative) Urine Blood 2+ H (Negative) Urine RBC (Auto) 11-20 H (0-2) /hpf Diagnostic Findings Abdomen/Pelvis CT 10/28/25 00:10 EXAM: CT abd pelvis IV con only CLINICAL HISTORY: diffuse abd pain TECHNIQUE: Multiple contiguous axial images were obtained from the level of diaphragm to the pubic symphysis. This study was acquired after the IV administration of iodinated contrast material, given the patient's indications for the examination. If IV contrast material had not been administered, the likelihood of detecting abnormalities relevant to the patient's condition would have been substantially decreased. Coronal and sagittal reformatted images were generated and reviewed to improve anatomic localization and optimize lesion detection. CT scan was performed according to ALARA (as low as reasonably achievable). COMPARISON: 04/27/2025 10:27:23 ENVIRONMENTAL SERVICES AIDE. FINDINGS: Atelectatic bands are seen in the right middle lobe and lingula. Patchy areas of ground-glass attenuation with mild interlobular septal thickening are seen in the basal segments of the lungs. The liver is enlarged in size and attenuation. No focal liver lesions are seen. There is mild prominence of intra- or extrahepatic biliary ducts. Common bile duct measures 1 mm in maximum diameter. Hepatic vasculature is patent. The gallbladder is not visualized. Surgical carole are seen in the gallbladder fossa region. The spleen and pancreas are unremarkable. The adrenal glands show well-defined hypoenhancing nodular lesions measuring 10-15 mm in size with average attenuation between 30-40 HU. The kidneys are normal in size and attenuation. There is no hydronephrosis or perinephric fat stranding. No renal calculi or renal masses are identified. The ureters are normal in caliber and no ureteral calculi are seen. The bladder is normal in contour. The uterus is unremarkable. No evidence of focal or diffuse bowel wall thickening or of bowel obstruction is seen. No evidence of inflamed appendix. No adenopathy or fluid collections are seen. A small umbilical hernia containing omental fat is seen. The aorta is normal in caliber. No aggressive appearing osseous lesions are identified. The L2 vertebral body shows moderate reduction in its height with hyperdense material within. IMPRESSION: 1. Hepatomegaly - stable. 2. Prominent intra- and extrahepatic biliary ducts - likely post-cholecystectomy status - stable. Advise liver function test correlation. 3. Multiple adrenal hypoenhancing nodules - stable. 4. Atelectatic bands are seen in the right middle lobe and lingula with patchy areas of ground-glass attenuation and mild interlobular septal thickening in the basal segments of the lungs - new. Advise chest CT with end-inspiratory view. Electronically signed by Ramon Koch 10-28-2025 02:[address] 10/28/25 00:10 EXAM: CT lumbar spine w con CLINICAL HISTORY: pain TECHNIQUE: Multiple contiguous axial images were obtained through the lumbar spine without IV contrast. Sagittal and coronal reformatted images were obtained from the axial data. The CT scan was performed according to ALARA (as low as reasonably achievable). COMPARISON: 11/11/2016 13:34:17 ENVIRONMENTAL SERVICES AIDE FINDINGS: The normal lordotic curvature of the lumbar spine is maintained. Persistent, mild scoliosis of the lumbar spine with concavity toward the right. Persistently seen, diffusely decreased density of the visualized bones, in keeping with osteoporosis/osteopenia. Persistently seen old collapse and changes of prior vertebroplasty in the L2 vertebral body. Stable, mild partial collapse - central wedging along the superior endplates of L4 and L5 vertebral bodies. The rest of the lumbar vertebral bodies are maintained in height and alignment. No vertebral destructive changes are seen. T11-T12: No significant disc bulge, severe or significant canal stenosis, or significant neuroforaminal narrowing. T12-L1: No significant disc bulge, severe or significant canal stenosis, or significant neuroforaminal narrowing. L1-L2: Mild posterior disc bulge,. No neuroforaminal narrowing. L2-L3: No significant disc bulge, severe or significant canal stenosis, or significant neuroforaminal narrowing. L3-L4: No significant disc bulge, severe or significant canal stenosis, or significant neuroforaminal narrowing. L4-L5: No significant disc bulge, severe or significant canal stenosis, or significant neuroforaminal narrowing. L5-S1: No significant disc bulge, severe or significant canal stenosis, or significant neuroforaminal narrowing. Paravertebral soft tissues are unremarkable. Persistently seen, diffusely enlarged, lobulated nodular left adrenal gland with interval onset of similar-appearing changes seen in the left adrenal gland on the present scan. IMPRESSION: 1. Persistently seen, diffusely decreased density of the visualized bones, in keeping with osteoporosis/osteopenia. 2. Persistently seen old collapse and changes of prior vertebroplasty in the L2 vertebral body. 3. Stable, mild partial collapse - central wedging along the superior endplates of L4 and L5 vertebral bodies. 4. Persistently seen, diffusely enlarged, lobulated nodular left adrenal gland with interval onset of similar-appearing changes seen in the left adrenal gland on the present scan. Electronically signed by Ramon Koch 10-28-2025 02:43 AM Chest X-Ray 10/28/25 01:48 EXAM: XR chest 1V portable CLINICAL HISTORY: post intubation TECHNIQUE: Radiograph of the chest was acquired. COMPARISON: 03/19/2025 11:11:16 ENVIRONMENTAL SERVICES AIDE. FINDINGS: There is blunting of the bilateral costophrenic angles. An endotracheal tube is seen with its tip reaching close to the maximilian. A nasogastric tube is seen with its tip in the region of the stomach. An atelectatic band is seen in the right lower zone. Aortic knuckle calcification is seen. The rest of the lungs are clear. The cardiomediastinal silhouette is within normal limits. No acute osseous abnormality. IMPRESSION: 1. Bilateral pleural effusion with atelectatic bands in the right lower zone - new. 2. Endotracheal tube in situ with lower end of the tube reaching up to the maximilian - low position. Advise withdrawing the tube by 2-3cm. 3. Nasogastric tube in situ. Electronically signed by Ramon Koch 10-28-2025 03:15 AM Medications Administered Fentanyl Citrate (Fentanyl Bolus From Bag) 50 mcg IV Q60M PRN PRN Reason: Pain or Agitation Stop: 11/11/25 02:11 Last Admin: 10/28/25 02:42 Dose: 50 mcg Documented By: ANNA Co-signed By: MOUNA Fentanyl Citrate (Fentanyl Citrate) 2,500 mcg in 250 mls @ 5 mls/hr IV .Q50H [facility]; Protocol Stop: 11/11/25 02:14 Last Titration: 10/28/25 03:01 Dose: 100 mcg/hr, 10 mls/hr Documented By: ANNA Co-signed By: MOUNA Admin: 10/28/25 02:18 Dose: 50 mcg/hr, 5 mls/hr Documented By: ANNA Co-signed By: LOLY Epinephrine HCl () 4 mg in 254 mls @ 25.375 mls/hr IV .Q10H1M [facility]; Protocol Stop: 11/27/25 02:44 Last Admin: 10/28/25 02:51 Dose: 0.1 mcg/kg/min, 25.4 mls/hr Documented By: ANNA Co-signed By: MOUNA Discontinued Medications Acetaminophen (Acetaminophen 500 Mg Tab) 1,000 mg PO NOW STA Stop: 10/28/25 00:13 Last Admin: 10/28/25 02:53 Dose: Not Given Documented By: ANNA Dexamethasone Sodium Phosphate (DexamethasonePf 10 Mg/Ml Vial) 10 mg IV NOW ONE Stop: 10/28/25 00:11 Last Admin: 10/28/25 00:23 Dose: 10 mg Documented By: ANNA Diphenhydramine HCl (Diphenhydramine 50 Mg/Ml Vial) 50 mg IV ONCE ONE Stop: 10/28/25 02:00 Last Admin: 10/28/25 01:23 Dose: 50 mg Documented By: CARRINGTON Epinephrine HCl (Epinephrine Inj 1 Mg/Ml Vial) 0.3 mg IM ONCE ONE Stop: 10/28/25 01:58 Last Admin: 10/28/25 01:20 Dose: 0.3 mg Documented By: CARRINGTON Etomidate (Etomidate 2 Mg/Ml 20 Ml Vial) 30 mg IV ONCE ONE Stop: 10/28/25 02:01 Last Admin: 10/28/25 01:29 Dose: 30 mg Documented By: CARRINGTON Famotidine (Famotidine 20mg/5ml Iv Push) Confirm Administered Dose 20 mg IV .STK-MED ONE Stop: 10/28/25 01:27 Last Admin: 10/28/25 01:27 Dose: 20 mg Documented By: CARRINGTON Famotidine (Famotidine 20mg/5ml Iv Push) Confirm Administered Dose 20 mg IV .STK-MED ONE Stop: 10/28/25 01:27 Last Admin: 10/28/25 02:59 Dose: 20 mg Documented By: ANNA Fentanyl Citrate (Fentanyl Citrate Pf 100 Mcg/2 Ml Vial) 100 mcg IV NOW STA Stop: 10/28/25 01:42 Last Admin: 10/28/25 02:59 Dose: Not Given Documented By: ANNA Fentanyl Citrate (Fentanyl Citrate 2,500 Mcg/250 Ml Bag) Confirm Administered Dose 2,500 mcg IV .STK-MED ONE Stop: 10/28/25 01:46 Last Admin: 10/28/25 02:59 Dose: Not Given Documented By: ANNA Sodium Chloride (Nss) 1,000 mls @ 999 mls/hr IV .Q1H1M ONE Stop: 10/28/25 01:10 Last Infusion: 10/28/25 03:12 Dose: Infused Documented By: Admin: 10/28/25 00:23 Dose: 999 mls/hr Documented By: ANNA Sodium Chloride (Nss) 1,000 mls @ 999 mls/hr IV .Q1H1M ONE Stop: 10/28/25 03:54 Last Admin: 10/28/25 03:00 Dose: 999 mls/hr Documented By: ANNA Ioversol (Optiray 320 125ml) 94 ml IV ONCE ONE Stop: 10/28/25 01:22 Last Admin: 10/28/25 01:21 Dose: 94 ml Documented By: JACQUELIN Ketorolac Tromethamine (Ketorolac Tromethamine 15 Mg/Ml Vial) 15 mg IV NOW ONE Stop: 10/28/25 00:11 Last Admin: 10/28/25 00:23 Dose: 15 mg Documented By: ANNA Lidocaine (Lidocaine 5% 1 Patch) 1 patch TD NOW STA Stop: 10/28/25 00:39 Last Admin: 10/28/25 00:43 Dose: 1 patch Documented By: shaka Methocarbamol (Methocarbamol 500 Mg Tablet) 500 mg PO NOW STA Stop: 10/28/25 00:11 Last Admin: 10/28/25 00:43 Dose: 500 mg Documented By: shaka Methylprednisolone (Methylprednisolone 125 Mg/2 Ml Vial) 125 mg IV ONCE ONE Stop: 10/28/25 01:59 Last Admin: 10/28/25 01:23 Dose: 125 mg Documented By: CARRINGTON Midazolam HCl (Midazolam Hcl 5 Mg/Ml 2ml Vial) 5 mg IV NOW STA Stop: 10/28/25 01:42 Last Admin: 10/28/25 02:59 Dose: Not Given Documented By: ANNA Midazolam HCl (Midazolam Hcl 5 Mg/Ml 2ml Vial) 5 mg IV NOW STA Stop: 10/28/25 02:07 Last Admin: 10/28/25 02:09 Dose: 5 mg Documented By: CARRINGTON Miscellaneous (Stat Iv Infusion Titration Per Protocol) 1 each N/A NOW STA Stop: 10/28/25 02:13 Last Admin: 10/28/25 02:59 Dose: Not Given Documented By: ANNA Miscellaneous (Stat Iv/Im) 1 each N/A NOW STA Stop: 10/28/25 02:42 Last Admin: 10/28/25 03:00 Dose: Not Given Documented By: ANNA Succinylcholine Chloride (Succinylcholine Chloride 20 Mg/Ml 10 Ml Vial) 160 mg IV ONCE ONE Stop: 10/28/25 02:00 Last Admin: 10/28/25 01:29 Dose: 160 mg Documented By: CARRINGTON Co-signed By: ANNA ECG Additional Comments: Sinus rhythmwith occasionalPremature ventricular complexes Inferior infarct, age undetermined PossibleAnterior infarct, age undetermined Abnormal ECG When compared with ECG [id number] 10:14, Premature ventricular complexesare nowPresent Borderline criteria forAnterior infarctare nowPresent Coding Level of Care Code 71863 CRITICAL CARE 1ST 30-74M Diagnoses Anaphylactic reaction T78.2XXA Lumbar pain M54.50 Diarrhea R19.7 Diarrhea type: unspecified type (3) Diarrhea Diarrhea type: unspecified type Qualified Code(s): R19.7 - Diarrhea, unspecified
[2025-10-28] MEDS: fentaNYL citrate 2,500 MCG/250 ML BAG IV ONE (02:59)
[2025-10-28] MEDS: STAT IV Infusion **Titration per Protocol STA (02:59)
[2025-10-28] MEDS: STAT IV/IM STA (03:00)
--- NOTE | 2025-10-28 03:18 | XRay Report ---
EXAM: XR chest 1V portable CLINICAL HISTORY: post intubation TECHNIQUE: Radiograph of the chest was acquired. COMPARISON: 03/19/2025 11:11:16 BLUE CRABBER. FINDINGS: There is blunting of the bilateral costophrenic angles. An endotracheal tube is seen with its tip reaching close to the maximilian. A nasogastric tube is seen with its tip in the region of the stomach. An atelectatic band is seen in the right lower zone. Aortic knuckle calcification is seen. The rest of the lungs are clear. The cardiomediastinal silhouette is within normal limits. No acute osseous abnormality. IMPRESSION: 1. Bilateral pleural effusion with atelectatic bands in the right lower zone - new. 2. Endotracheal tube in situ with lower end of the tube reaching up to the maximilian - low position. Advise withdrawing the tube by 2-3cm. 3. Nasogastric tube in situ. Electronically signed by Ramon Koch 10-28-2025 03:15 AM
--- NOTE | 2025-10-28 03:21 | History & Physical Report ---
Date of Service October 28, 2025 Assessment & Plan (1) Anaphylactic reaction: Plan: 60-year-old female with past medical history significant for diabetes, dyslipidemia, hypothyroidism, positional sleep apnea, nocturnal hypoxemia, ST elevated [place], hypertension, irritable bowel syndrome, osteoporosis, chronic bilateral back pain, H. pylori infection, depression, PTSD, insomnia, history of adrenal mass, presents with severe back pain and patient had reaction to CT scan contrast. Patient is from [facility]. Patient was visiting [facility] and came back recently. While coming back she lifted her suitcase and felt a pop in the lumbar spine and had progressive pain. She came to the ER on 10/25/2025. X-rays lumbar spine was okay but showed old fracture. Patient was given Toradol and discharged on prednisone taper, Flexeril and oxycodone. says the pain m edicine is not helping. The pain was getting progressively worse. She is having some difficulty ambulation because of pain. This reason came to the ER today. As per there is no complaint of chest pain or shortness of breath. No cough. No fevers. No nausea. Patient after coming back from CAT scan was not breathing. She turned blue. Oxygen saturation 40%. She was hypotensive. Tachycardic. Patient was emergently intubated. She was given epinephrine. She was also given Decadron, Benadryl and Pepcid. Still somewhat hypotensive patient was started on epinephrine drip. Patient is on fentanyl drip for sedation.Face is somewhat swollen. Anaphylactic reaction Mostly to CT scan contrast dye Was hypoxic, and hypotensive Received epinephrine, Decadron, Benadryl and Pepcid S/p intubation Currently on epinephrine and fentanyl drip Close monitoring ICU Appreciate critical care help Back pain Will follow lumbar spine CT Abdominal pain Will follow-up abdominal CT History of ST elevated [place] On 07/28/2023 Status post drug-eluting stents to RCA. Third-degree heart block resolved postprocedure Postop course complicated by pseudoaneurysm of the right femoral artery access site and underwent ultrasound-guided thrombin injection On aspirin, and statin Holding beta-rose for hypotension History of obstructive sleep apnea Diabetes Sliding scale Will Check with patient if she is taking Mounjaro Will follow HbA1c level Hyperlipidemia On statin and Zetia Hypertension Holding metoprolol and losartan as patient is hypotensive GERD Will place on IV Protonix Depression PTSD Restart home medication when able to History of hypothyroidism Seems currently not on medications Will follow TSH levels DVT prophylaxis SCDs Disposition ICU Full code. History of Present Illness Chief Complaint: Anaphylactic reaction Primary Care Provider: Paco Luis DO 60-year-old female with past medical history significant for diabetes, dyslipidemia, hypothyroidism, positional sleep apnea, nocturnal hypoxemia, ST e levated [place], hypertension, irritable bowel syndrome, osteoporosis, chronic bilateral back pain, H. pylori infection, depression, PTSD, insomnia, history of adrenal mass, presents with severe back pain and patient had reaction to CT scan contrast. Patient is from [facility]. Patient was visiting [facility] and came back recently. While coming back she lifted her suitcase and felt a pop in the lumbar spine and had progressive pain. She came to the ER on 10/25/2025. X-rays lumbar spine was okay but showed old fracture. Patient was given Toradol and discharged on prednisone taper,Flexeril and oxycodone. says the pain medicine is not helping. The pain was getting progressively worse. She is having some difficulty ambulation because of pain. This reason came to the ER today. As per there is no complaint of chest pain or shortness of breath. No cough. No fevers. No nausea. Patient after coming back from CAT scan was not breathing. She turned blue. Oxygen saturation 40%. She was hypotensive. Tachycardic. Patient was emergently intubated. She was given epinephrine. She was also given Decadron, Benadryl and Pepcid. Still somewhat hypotensive patient was started on epinephrine drip. Patient is on fentanyl drip for sedation.Face is somewhat swollen. Past medical history. As mentioned above Past surgical history. Left breast biopsy. . Colonoscopy and EGD. EGD with endoscopic ultrasound. Duodenum biopsy. Excision of sebaceous cyst left breast. Injection of the lumbosacral spine. Laparoscopic cholecystectomy. Appendectomy. Repair of epigastric hernia. Small bowel endoscopy with biopsy. Social history. . Smokes 0.3 packs a day for 36 years. No alcohol use. No drug use. Family history. Mother had hypertension. Sepsis. Thyroid disorder. Father had stomach cancer. Paternal grandfather had stomach cancer. Allergies Allergy/AdvReac Type Severity Reaction Status Date / Time egg Allergy Severe HIVES, Verified 10/28/25 00:55 FACIAL SWELLING Iodinated Contrast Media Allergy Severe Anaphylaxis Verified 10/28/25 03:34 metronidazole AdvReac Severe Confusion Verified 10/28/25 00:55 clarithromycin AdvReac Intermediate Gastrointestinal Verified 10/28/25 00:55 Upset codeine AdvReac Intermediate ABDOMINAL Verified 10/28/25 00:55 PAIN-IBS morphine AdvReac Intermediate ABDOMINAL Verified 10/28/25 00:55 PAIN-IBS Opioids - Morphine Analogues AdvReac Mild Nausea Verified 10/28/25 00:55 Home Medications Medication Instructions Recorded Confirmed Type dicyclomine 20 mg tablet 20 mg PO DIRECTED PRN IBS 10/03/18 10/28/25 History suvorexant 20 mg tablet (Belsomra) 20 mg PO HS Sleep 09/05/20 10/28/25 History buspirone 15 mg tablet 15 mg PO QID 07/28/23 10/28/25 History denosumab 60 mg/mL subcutaneous 60 mg subcut DIRECTED 07/28/23 10/28/25 History syringe (Prolia) omeprazole 40 mg capsule,delayed 40 mg PO DAILYBB 07/28/23 10/28/25 History release linaclotide 290 mcg capsule 290 mcg PO QAM 07/29/23 10/28/25 History (Linzess) quetiapine 300 mg tablet 300 mg PO HS 07/30/23 10/28/25 History aspirin 81 mg tablet,delayed 81 mg PO QAM #30 tabs 08/07/23 10/28/25 Rx release atorvastatin 80 mg tablet 80 mg PO QAM 04/19/25 10/28/25 History hyoscyamine sulfate 0.125 mg 0.125 mg PO QID PRN ABD PAIN IF 04/19/25 10/28/25 History sublingual tablet CAN'T TOLERATE BENTYL lorazepam 1 mg tablet 1 mg PO HS 04/19/25 10/28/25 History losartan 25 mg tablet 12.5 mg PO QAM 04/19/25 10/28/25 History metoprolol succinate 25 mg 12.5 mg PO QAM 04/19/25 10/28/25 History tablet,extended release 24 hr ezetimibe 10 mg tablet 10 mg PO QAM 05/06/25 10/28/25 History phenazopyridine 200 mg tablet 200 mg PO Q8H PRN Pain 6 doses #6 05/06/25 10/28/25 Rx (Pyridium) tabs cyclobenzaprine 5 mg tablet 5 - 10 mg (1 - 2 x 5 mg) PO Q8H 10/25/25 10/28/25 Rx PRN muscle spasm #20 tabs oxycodone 5 mg tablet 5 mg PO Q6H PRN pain #10 tabs 10/25/25 10/28/25 Rx prednisone 20 mg tablet 20 mg PO DIRECTED 9 days #18 10/25/25 10/28/25 Rx tabs hydrocortisone 2.5 % topical cream 1 applic topical BID PRN Skin 10/28/25 10/28/25 History Irritation suvorexant 20 mg tablet 20 mg PO HS 10/28/25 10/28/25 History Past Med/Surg History Problem List (Updated 10/28/25 @ 03:27 by Surjit Isaacs MD) Anaphylactic reaction Strain of lumbar region (Acute) Lumbar strain (Acute) Lumbar pain (Acute) Diarrhea (Acute) Ground glass opacity present on imaging of lung H. pylori infection Toxic encephalopathy Confusion (Acute) Confusion Pseudoaneurysm Mobitz type 1 second degree AV block (Acute) Acute [place], inferior wall (Acute) Hypothyroidism DMII (diabetes mellitus, type 2) Adrenal nodule Dyslipidemia Bradycardia Abdominal pain Acute myocardial infarction involving right coronary artery Infiltrate of both lungs present on imaging study Pneumonia (Acute) Contusion of rib on right side (Acute) Calcific bursitis (Acute) Benzodiazepine dependence (Acute) Irritable bowel syndrome Compression fracture of lumbar vertebra (Acute) Back pain (Acute) Lumbar compression fracture (Acute) Hematoma pseudoaneurysm of femoral artery following cardiac catheterization Anxiety (Acute) Vitamin D insufficiency Osteoporosis Medical History Stress fracture Depressed PTSD (post-traumatic stress disorder) Surgical History H/O kyphoplasty History of heart artery stent History of cardiac cath Social History Smoking Status: Current every day smoker Tobacco Type: Cigarettes Cigarettes Per Day: 0.5 pack/day; Second Hand Exposure: No; Do You Dip or Chew Tobacco: No; Hx Alcohol Use: No Hx Substance Use: Yes Preferred Language: Vietnamese Communication Ability: Effective Fish Net Stringer Required: No Beliefs That Will Affect Care: None Current Living Situation: Spouse Current Living Situation Comment: lives with spouse in 2 story house current occupation: retired Feels Safe at Home: Yes Assistive Devices: Glasses Review of Systems Review of Systems: Unobtainable due to endotracheal tube Physical Exam Physical Exam: General- Not in distress Head- atraumatic. Swollen lips Eyes- Pupils sluggish reaction to light Neck-, no JVD. Lungs- clear to auscultation no wheezing or crackles Heart- regular rhythm; no murmur, no gallop. Abdomen- sluggish bowel sounds, soft, no distension. Extremities- no pretibial edema, no erythema seen Neuro-intubated and sedated Skin- no rash seen Results & Data Results & Data Vital Signs (Past 12 Hours) Vital Signs Temp Pulse Pulse Resp BP BP Pulse Ox 10/28/25 02:25 82 18 86/61 L 100 10/28/25 02:20 85 16 94/66 L 100 10/28/25 02:15 88 18 124/72 100 10/28/25 02:10 96 H 20 128/75 100 10/28/25 02:00 82 18 192/98 H 100 10/28/25 01:56 78 20 236/103 H 96 10/28/25 01:50 94 H 16 85/70 L 92 10/28/25 01:45 98 H 21 96/60 L 94 10/28/25 01:38 84 L 10/28/25 01:35 109 H 16 185/97 H 91 10/28/25 01:30 77 20 93 10/28/25 01:30 139 H 24 168/113 H 97 10/28/25 01:24 146 H 10/28/25 01:23 75 10/27/25 23:56 36.5 C 74 16 133/84 98 O2 Del Method FiO2 10/28/25 02:25 Mechanical Vent 100 10/28/25 02:20 Mechanical Vent 100 10/28/25 02:15 Mechanical Vent 100 10/28/25 02:10 Mechanical Vent 100 10/28/25 02:00 Mechanical Vent 100 10/28/25 01:56 Mechanical Vent 100 10/28/25 01:50 Mechanical Vent 100 10/28/25 01:45 Mechanical Vent 10/28/25 01:38 Mechanical Vent 10/28/25 01:35 Mechanical Vent 10/28/25 01:30 100 10/28/25 01:30 Ambu-Bag 10/28/25 01:24 10/28/25 01:23 10/27/25 23:56 Room Air Diagnostic Findings Laboratory Results WBC 5.94 K/ul (4.8-10.8) 10/28/25 00:30 RBC 4.44 M/uL (4.20-5.40) 10/28/25 00:30 Hgb 13.0 g/dL (12.0-16.0) 10/28/25 00:30 Hct 39.7 % (37.0-47.0) 10/28/25 00:30 MCV 89.4 fL (80.0-100.0) 10/28/25 00:30 MCH 29.3 pg (25.0-34.0) 10/28/25 00:30 MCHC 32.7 g/dL (32.0-36.0) 10/28/25 00:30 RDW Std Deviation 50.1 fL (36.4-46.3) H 10/28/25 00:30 RDW Coeff of Sharla 15.1 % (11.5-14.5) H 10/28/25 00:30 Plt Count 250 K/uL (130-400) 10/28/25 00:30 MPV 10.0 fL (9.4-12.4) 10/28/25 00:30 Immature Gran % (Auto) 0.5 % 10/28/25 00:30 Neut % (Auto) 60.9 % 10/28/25 00:30 Lymph % (Auto) 24.4 % 10/28/25 00:30 [place] % (Auto) 9.1 % 10/28/25 00:30 Eos % (Auto) 4.4 % 10/28/25 00:30 Baso % (Auto) 0.7 % 10/28/25 00:30 Neut # (Auto) 3.62 K/uL (1.40-6.50) 10/28/25 00:30 Lymph # (Auto) 1.45 K/uL (1.20-3.40) 10/28/25 00:30 [place] # (Auto) 0.54 K/uL (0.11-0.59) 10/28/25 00:30 Eos # (Auto) 0.26 K/uL (0.00-0.50) 10/28/25 00:30 Baso # (Auto) 0.04 K/uL (0.00-0.20) 10/28/25 00:30 Immature Gran # (Auto) 0.03 K/uL (0.01-0.20) 10/28/25 00:30 Sodium 138 mmol/L (136-145) 10/28/25 00:30 Potassium 3.8 mmol/L (3.5-5.1) 10/28/25 00:30 Chloride 106 mmol/L (98-107) 10/28/25 00:30 Carbon Dioxide 25 mmol/L (21-32) 10/28/25 00:30 Anion Gap 7 (3-11) 10/28/25 00:30 BUN 11 mg/dl (6-23) 10/28/25 00:30 Creatinine 0.89 mg/dl (0.6-1.2) 10/28/25 00: Est Cr Clr Drug Dosing Not Reportable 10/28/25 00:30 eGFR 73.26 10/28/25 00:30 BUN/Creatinine Ratio 12.4 (10-20) 10/28/25 00:30 Glucose 162 mg/dl (70-99(Fasting)) H 10/28/25 00:30 Calcium 9.1 mg/dl (8.6-10.3) 10/28/25 00:30 Magnesium 1.9 mg/dl (1.7-2.4) 10/28/25 00:30 Total Bilirubin 0.2 mg/dl (0.2-1.0) 10/28/25 00:30 AST 21 U/L (13-39) 10/28/25 00:30 ALT 35 U/L (7-52) 10/28/25 00:30 Alkaline Phosphatase 108 U/L (34-104) H 10/28/25 00:30 Total Protein 7.2 gm/dl (6.0-8.3) 10/28/25 00:30 Albumin 3.8 gm/dl (3.4-5.0) 10/28/25 00:30 Globulin 3.4 gm/dl (2.5-4.0) 10/28/25 00:30 Albumin/Globulin Ratio 1.1 (0.9-2) 10/28/25 00:30 Impressions Abdomen/Pelvis CT 10/28/25 00:10 EXAM: CT abd pelvis IV con only CLINICAL HISTORY: diffuse abd pain TECHNIQUE: Multiple contiguous axial images were obtained from the level of diaphragm to the pubic symphysis. This study was acquired after the IV administration of iodinated contrast material, given the patient's indications for the examination. If IV contrast material had not been administered, the likelihood of detecting abnormalities relevant to the patient's condition would have been substantially decreased. Coronal and sagittal reformatted images were generated and reviewed to improve anatomic localization and optimize lesion detection. CT scan was performed according to ALARA (as low as reasonably achievable). COMPARISON: 04/27/2025 10:27:23 [employer]. FINDINGS: Atelectatic bands are seen in the right middle lobe and lingula. Patchy areas of ground-glass attenuation with mild interlobular septal thickening are seen in the basal segments of the lungs. The liver is enlarged in size and attenuation. No focal liver lesions are seen. There is mild prominence of intra- or extrahepatic biliary ducts. Common bile duct measures 1 mm in maximum diameter. Hepatic vasculature is patent. The gallbladder is not visualized. Surgical carole are seen in the gallbladder fossa region. The spleen and pancreas are unremarkable. The adrenal glands show well-defined hypoenhancing nodular lesions measuring 10-15 mm in size with average attenuation between 30-40 HU. The kidneys are normal in size and attenuation. There is no hydronephrosis or perinephric fat stranding. No renal calculi or renal masses are identified. The ureters are normal in caliber and no ureteral calculi are seen. The bladder is normal in contour. The uterus is unremarkable. No evidence of focal or diffuse bowel wall thickening or of bowel obstruction is seen. No evidence of inflamed appendix. No adenopathy or fluid collections are seen. A small umbilical hernia containing omental fat is seen. The aorta is normal in caliber. No aggressive appearing osseous lesions are identified. The L2 vertebral body shows moderate reduction in its height with hyperdense material within. IMPRESSION: 1. Hepatomegaly - stable. 2. Prominent intra- and extrahepatic biliary ducts - likely post-cholecystectomy status - stable. Advise liver function test correlation. 3. Multiple adrenal hypoenhancing nodules - stable. 4. Atelectatic bands are seen in the right middle lobe and lingula with patchy areas of ground-glass attenuation and mild interlobular septal thickening in the basal segments of the lungs - new. Advise chest CT with end-inspiratory view. Electronically signed by Ramon Koch 10-28-2025 02:[address] 10/28/25 00:10 EXAM: CT lumbar spine w con CLINICAL HISTORY: pain TECHNIQUE: Multiple contiguous axial images were obtained through the lumbar spine without IV contrast. Sagittal and coronal reformatted images were obtained from the axial data. The CT scan was performed according to ALARA (as low as reasonably achievable). COMPARISON: 11/11/2016 13:34:17 [employer] FINDINGS: The normal lordotic curvature of the lumbar spine is maintained. Persistent, mild scoliosis of the lumbar spine with concavity toward the right. Persistently seen, diffusely decreased density of the visualized bones, in keeping with osteoporosis/osteopenia. Persistently seen old collapse and changes of prior vertebroplasty in the L2 vertebral body. Stable, mild partial collapse - central wedging along the superior endplates of L4 and L5 vertebral bodies. The rest of the lumbar vertebral bodies are maintained in height and alignment. No vertebral destructive changes are seen. T11-T12: No significant disc bulge, severe or significant canal stenosis, or significant neuroforaminal narrowing. T12-L1: No significant disc bulge, severe or significant canal stenosis, or significant neuroforaminal narrowing. L1-L2: Mild posterior disc bulge,. No neuroforaminal narrowing. L2-L3: No significant disc bulge, severe or significant canal stenosis, or significant neuroforaminal narrowing. L3-L4: No significant disc bulge, severe or significant canal stenosis, or significant neuroforaminal narrowing. L4-L5: No significant disc bulge, severe or significant canal stenosis, or significant neuroforaminal narrowing. L5-S1: No significant disc bulge, severe or significant canal stenosis, or significant neuroforaminal narrowing. Paravertebral soft tissues are unremarkable. Persistently seen, diffusely enlarged, lobulated nodular left adrenal gland with interval onset of similar-appearing changes seen in the left adrenal gland on the present scan. IMPRESSION: 1. Persistently seen, diffusely decreased density of the visualized bones, in keeping with osteoporosis/osteopenia. 2. Persistently seen old collapse and changes of prior vertebroplasty in the L2 vertebral body. 3. Stable, mild partial collapse - central wedging along the superior endplates of L4 and L5 vertebral bodies. 4. Persistently seen, diffusely enlarged, lobulated nodular left adrenal gland with interval onset of similar-appearing changes seen in the left adrenal gland on the present scan. Electronically signed by Ramon Koch 10-28-2025 02:43 AM Chest X-Ray 10/28/25 01:48 EXAM: XR chest 1V portable CLINICAL HISTORY: post intubation TECHNIQUE: Radiograph of the chest was acquired. COMPARISON: 03/19/2025 11:11:16 [employer]. FINDINGS: There is blunting of the bilateral costophrenic angles. An endotracheal tube is seen with its tip reaching close to the maximilian. A nasogastric tube is seen with its tip in the region of the stomach. An atelectatic band is seen in the right lower zone. Aortic knuckle calcification is seen. The rest of the lungs are clear. The cardiomediastinal silhouette is within normal limits. No acute osseous abnormality. IMPRESSION: 1. Bilateral pleural effusion with atelectatic bands in the right lower zone - new. 2. Endotracheal tube in situ with lower end of the tube reaching up to the maximilian - low position. Advise withdrawing the tube by 2-3cm. 3. Nasogastric tube in situ. Electronically signed by Ramon Koch 10-28-2025 03:15 AM ECG Additional Comments: ECG. Sinus rhythm with occasional PVCs with a rate of 70. QTc 438 Code Status & VTE Plan VTE Prophylaxis Plan VTE Prophylaxis will be ordered: Yes
[2025-10-28 03:38] LABS: Appearance Urine Clear (Clear); Bacteria Urine Automated None Seen (None Seen); Cast Urine Automated 0-2 /lpf (0-2); Epithelial Cell Urine Auto 0-2 /hpf (0-2); Glucose Urine UA 1+ (Negative); WBC Urine Automated 0-5 /hpf (0-5)
[2025-10-28] MEDS ORDERED: GLUCAGON FOR INJ 1 MG VIAL SQ PRN (04:08)
[2025-10-28] MEDS ORDERED: DEXTROSE 50% 50 ML SYRINGE IV PRN (04:08)
[2025-10-28] MEDS ORDERED: GLUCOSE 10 TAB/TUBE PO PRN (04:08)
[2025-10-28] MEDS ORDERED: GLUCOSE 40% GEL 15 GM TUBE PO PRN (04:08)
[2025-10-28] MEDS ORDERED: CARBOHYDRATES FOR HYPOGLYCEMIA PO PRN (04:08)
[2025-10-28] MEDS: LACTATED RINGER'S 1,000 ML IV SCH (05:00)
[2025-10-28 05:04] LABS: iSTAT Art Bld Gas Base Excess -13.0 mmol/L (-9-1.8); iSTAT Art Bld Gas pCO2 Correct 41 mmHg (35-46); iSTAT Art Bld Gas pH Corrected 7.179 (7.35-7.45); iSTAT Arterial Blood Gas pO2 C 79
[2025-10-28] MEDS: INSULIN ASPART PER UNIT CHARGE SC SCH (05:08)
[2025-10-28 05:13] LABS: Hematocrit (blood only) 48.6 % (37.0-47.0); Hemoglobin 15.1 g/dL (12.0-16.0); Immature Granulocytes # (auto) 0.21 K/uL (0.01-0.20); Immature Granulocytes % (auto) 1.3 %; Mean Corpuscular Hemoglobin 28.5 pg (25.0-34.0); Mean Corpuscular Volume 91.7 fL (80.0-100.0); Platelet Count 350 K/uL (130-400); RDW Standard Deviation 51.6 fL (36.4-46.3); Red Blood Count 5.30 M/uL (4.20-5.40); White Blood Count 15.95 K/ul (4.8-10.8)
[2025-10-28] MEDS: SODIUM CHLORIDE 0.9% 1,000 ML IV SCH (05:25)
[2025-10-28 05:35] LABS: Alanine Aminotransferase 47.0 U/L (7-52); Albumin Level 2.9 gm/dl (3.4-5.0); Alkaline Phosphatase 98.0 U/L (34-104); Anion Gap 7.0 (3-11); Bilirubin,Total 1.0 mg/dl (0.2-1.0); Blood Urea Nitrogen 12.0 mg/dl (6-23); Calcium 7.2 mg/dl (8.6-10.3); Carbon Dioxide 19.0 mmol/L (21-32); Chloride 113.0 mmol/L (98-107); Creatinine Clr Calc Pharmacy 51.0 ml/min; Glucose 283.0 mg/dl (70-99(Fasting)); Magnesium 1.7 mg/dl (1.7-2.4); Potassium 3.9 mmol/L (3.5-5.1); Sodium 139.0 mmol/L (136-145); Total Protein 5.5 gm/dl (6.0-8.3)
[2025-10-28 05:54] LABS: Thyroid Stimulating Hormone 1.195 uIu/ml (0.300-4.500)
[2025-10-28 07:56] LABS: Hemoglobin A1C 6.5 % (4.5-5.6)
--- NOTE | 2025-10-28 08:20 | XRay Report ---
EXAM: XR chest 1V portable CLINICAL HISTORY: Eval lines/tubes/lung zimmerman TECHNIQUE: An X-ray image of the chest was obtained in AP projection. COMPARISON: 10/28/2025 00:50:00 NATURAL RESOURCE ECONOMIST FINDINGS: The endotracheal tube terminal end is seen 21 mm above the maximilian. A nasogastric tube is seen with its tip in the region of the stomach. Pulmonary Parenchyma: There is blunting of the bilateral costophrenic angles. An atelectatic band is seen in the right lower zone. Heart and mediastinum: Heart size and shape are normal. No mediastinal widening or masses. No hilar or mediastinal lymphadenopathy. Bony thorax: Bony thorax appears intact without fractures or deformities. Soft tissues: Soft tissues overlying the chest wall are unremarkable. IMPRESSION: 1. The endotracheal tube terminal end is seen 21 mm above the maximilian. An additional 1cm withdrawal would be ideal. 2. Otherwise, no changes were detected compared to the prior study dated 10/28/2025 00:50:00 NATURAL RESOURCE ECONOMIST. Electronically signed by Arnoldo Bray 10-28-2025 08:20 AM
[2025-10-28] MEDS ORDERED: CALCIUM CHLORIDE 10% 10 ML SYR IV ONE (08:33)
[2025-10-28] MEDS ORDERED: ATROPINE SULFATE 0.1 MG/ML 10ML SYR IV ONE (08:33)
[2025-10-28] MEDS ORDERED: LIDOCAINE 2% 20 MG/ML 5 ML SYR IV ONE (08:33)
[2025-10-28] MEDS ORDERED: SODIUM CHLORIDE 0.9% 10ML FLUSH IV ONE (08:33)
[2025-10-28] MEDS ORDERED: AMIODARONE HCL INJ 50 MG/ML 3 ML VIAL IV ONE (08:33)
[2025-10-28] MEDS: MIDAZOLAM HCL 1 MG/ML 2ML VIAL IV PRN (09:08)
[2025-10-28] MEDS: EZETIMIBE 10 MG TAB PO SCH (09:09)
[2025-10-28] MEDS: ATORVASTATIN 40 MG TAB PO SCH (09:09)
[2025-10-28] MEDS: ASPIRIN 81 MG ECTAB PO SCH (09:09)
[2025-10-28] MEDS ORDERED: Nursing to Pharmacy Communication SCH (09:30)
[2025-10-28 09:39] LABS: INR 0.9 (0.9-1.1); Partial Thromboplastin Time 28 Seconds (21-31); Prothrombin Time 9.8 Seconds (9.0-12.0)
[2025-10-28] MEDS: ASPIRIN 81 MG CHEW GT SCH (10:00)
[2025-10-28] MEDS: ACETAMINOPHEN 1,000 MG/100 ML VIAL IV PRN (10:26)
--- NOTE | 2025-10-28 10:36 | Communication Note ---
Patient presenting for back pain, with contrast anaphylaxis requiring intubation and epinephrine drip. Patient with presumed anaphylactic shock. Continue epinephrine drip, check echo given shock state. Continue benadryl and dexamethasone. Check PT/INR, APTT, random cortisol/AM cortisol, histamine, tryptase to finish anaphylactic workup. Continue adequate fluid resuscitation. Appreciate critical care team management. Date of Service: October 28, 2025
--- NOTE | 2025-10-28 11:15 | Communication Note ---
Date of Service: October 28, 2025 Received patient in signout from Mr. Byers. Evaluated bedside in presence of who reports she does appear to be more edematous in the upper ex tremities/fingers than what she can be; also confirms lips and face are swollen. Patient has received treatment for anaphylactic reaction; however, there is notable lack of wheals as also reported by overnight team. This may represent angioedema (acquired given lack of wheals), patient has minimal air leak at this time. Will continue with current treatment plan until upper airways appear to be less edematous. Optimize head of bed, lactic acid acidosis likely reflective of epinephrine infusion itself. Given that this is the first episode of angioedema for the patient will defer further evaluation at this time recommend outpatient follows up with PCP versus immunology I have personally spent 45 minutes of critical care time in the direct management of this patient. This is a life/limb threatening event. This includes time spent evaluating patient, direct bedside care, chart review, placing orders, interpretation of diagnostic studies, discussion with consultants, patient, and/or family members regarding treatment decisions, as well as other required patient management activities. This time is exclusive of all separately billable procedures, and teaching time and separate from and in addition to any other critical care service time. Coding Level of Care Code 41336 CRITICAL CARE EA ADD 30M
[2025-10-28] MEDS ORDERED: STAT IV Infusion **Titration per Protocol STA ×3 (11:29→20:38)
[2025-10-28 11:39] LABS: Chlamydia pneumoniae PCR Not Detected (NotDetected); Coronavirus 229E PCR Not Detected (NotDetected); Coronavirus CoV-2 (COVID19)PCR Not Detected (NotDetected); Coronavirus HKU1 PCR Not Detected (NotDetected); Coronavirus NL63 PCR Not Detected (NotDetected); Coronavirus OC43PCR Not Detected (NotDetected); Human Metapneumovirus PCR Not Detected (NotDetected); Parainfluenza Virus 1 PCR Not Detected (NotDetected); Parainfluenza Virus 2 PCR Not Detected (NotDetected); Parainfluenza Virus 3 PCR Not Detected (NotDetected); Parainfluenza Virus 4 PCR Not Detected (NotDetected); Respiratory Syncytial VirusPCR Not Detected (NotDetected); Rhinovirus/Enterovirus PCR Not Detected (NotDetected)
[2025-10-28] MEDS: dexMEDEtomidine 200 MCG/50 ML BAG IV SCH (12:03)
[2025-10-28] MEDS ORDERED: PHARMACY GLYCEMIC MGMT CONSULT PRN (12:04)
[2025-10-28] MEDS: LANTUS PER UNIT CHARGE SC ONE (12:11)
--- NOTE | 2025-10-28 13:09 | Pharmacy Report ---
Pharmacy Glycemic Short Note 2 - Date of Service October 28, 2025 - Glycemic Short BSG Results (Last 24 hours): 10/28/25 10/28/25 10/28/25 00:30 00:33 04:45 Glucose 162 H POC Glucose 304 H* POC Glucose (other) 151 H 10/28/25 10/28/25 10/28/25 04:56 08:39 08:43 Glucose 283 H POC Glucose 319 H* 297 H POC Glucose (other) 10/28/25 11:31 Glucose POC Glucose 250 H POC Glucose (other) OUTPATIENT ANTIDIABETIC REGIMEN: * None anti-diabetic medications * A1c 6.5% 10/28/25 ASSESSMENT: * 60 yo F in ICU receiving treatment for presumed anaphylactic shock from IV co ntrast. Patient received Dexamethasone 10mg + Solu-Medrol early this morning, on pressors and mechanical ventilation. Blood sugars elevated this morning at 319mg/dl - improved with 7 units of NovoLog to 250mg/dl. * Tighten NovoLog and add basal at this time. PLAN FOR INPATIENT GLYCEMIC CONTROL: * Basal insulin * Lantus 20 units SQ x1 dose now, 10 units at 0000 for BSG> 200mg/dl * Bolus insulin * NovoLog per scale ACHS or Q6hrs while NPO * Goal Range: Low 140 mg/dL - High 180 mg/dL * Correction Factor: 15 mg/dL/unit * Nutritional / Prandial insulin per carb ratio of 1 unit per 6 grams CHO consumed
[2025-10-28] MEDS: PLASMA-LYTE A 500 ML IV ONE (13:38)
--- NOTE | 2025-10-28 17:23 | XCELERA ---
[id number]
[2025-10-28] MEDS ORDERED: LIDOCAINE 5% 1 PATCH TD STA (18:10)
[2025-10-28] MEDS ORDERED: DEXAMETHASONE SOD INJ 4 MG/ML VIAL IV STA (18:34)
--- NOTE | 2025-10-28 19:56 | Communication Note ---
Date of Service: October 28, 2025 Patient awaken from sedation now on multiple occasions, kicked staff and trying to get up, aggressively bitting at ETT bite block. She does not appear to understand staff attempts at verbal comforting and de-escalation. She remains intubated secondary to concern for angioedema/throat swelling with minimal air leak this morning. - We will add Versed infusion and bolus to her regimen with bolus dosing - increase fentanyl infusion - Precedex remains on- She has hives and facial swelling from EGG allergy so will refrain from propofol at this time - Could consider adding Ketamine to her regimen if this fails Labs sent for Lactate, VBG, and PCT in setting of temperature increasing through the day - Lacate increased to 6.2 - PH 7.0 with HO3 16, PCo2 55 - PCT pending - Blood cultures pending At this time will initiate sepsis treatment with unknown source- imaging reviewed from early this morning as well as UA and physical exam - Cefepime empiric, Vancomycin empiric - Epinepherine will be discontinued- and if vasopressors are needed will use phenylephedrine or LEVOphed - Bicarb 50 meq now and then isotonic bicarb in sterile water at 125ml/hr - Thiamine 300mg IV now and in am - CK and Salicylate level as well will be obtained - NMS or serotonin type syndrome possible- however without clonus, or rigidity, flushing, or hyper-reflexive/jerky rigid movements- Benzodiazipine infusion will be employed - if no improvement in the above labs - will consider cyproheptadine - consider advanced imaging of neck/airway for occult infection. Codey RODRIGUEZ ([facility]-) I discussed this case via telephone at the time of this note
[2025-10-28] MEDS: MIDAZOLAM HCL 125 MG/250 ML BAG IV SCH (19:57)
[2025-10-28] MEDS: MIDAZOLAM HCL 1 MG/ML 2ML VIAL IV STA (20:00)
[2025-10-28] MEDS: MIDAZOLAM HCL 125MG/250ML D5W IV ONE (20:01)
[2025-10-28] MEDS: MIDAZOLAM HCL 5 MG/ML 2ML VIAL ONE (20:02)
[2025-10-28 20:18] LABS: Base Excess VBG -13.9 mEq/L; HCO3 VBG 16 mmol/L; Oxygen Saturation VBG 82.0 %; PCO2 VBG 55 mmHg (38-50); PO2 VBG 54 mmHg; pH VBG 7.08 (7.36-7.41)
[2025-10-28] MEDS ORDERED: STAT IV/IM STA (20:21)
[2025-10-28] MEDS ORDERED: VANCOMYCIN CONSULT ACTIVE PRN ×2 (20:26)
[2025-10-28] MEDS: SODIUM BICARB 8.4% INJ 50 MEQ/50 ML SYR IV ONE (20:45)
[2025-10-28] MEDS: SODIUM BICARB 8.4% INJ 50 MEQ/50 ML SYR IV STA (20:45)
[2025-10-28] MEDS: LACTATED RINGER'S 1,000 ML IV ONE (20:46)
[2025-10-28] MEDS: dexAMETHasone 6 MG in SYRINGE 0 ML IV STA (20:46)
[2025-10-28] MEDS: MAGNESIUM SULFATE / D5W 1 GM/100 ML BAG IV SCH (20:52)
[2025-10-28] MEDS ORDERED: REMOVE LIDODERM PATCH SCH (21:00)
[2025-10-28] MEDS: NOREPINEPHRINE/D5W 4 MG/250 ML IV ONE (21:01)
[2025-10-28] MEDS: SODIUM BICARBONATE 8.4% 150 MEQ in WATER, STERILE 1,000 ML IV SCH (21:02)
[2025-10-28] MEDS: VANCOMYCIN HCL 1,500 MG in SODIUM CHLORIDE 0.9% 500 ML IV ONE (21:02)
[2025-10-28] MEDS: CEFEPIME 2000MG 2,000 MG/20 ML SYR IV SCH (21:19)
[2025-10-28] MEDS: THIAMINE HCL 300 MG in SODIUM CHLORIDE 0.9% 50 ML IV ONE (21:19)
[2025-10-28] MEDS ORDERED: SODIUM BICARBONATE 8.4% 150 MEQ in WATER, STERILE 1,000 ML IV SCH (21:45)
[2025-10-28] MEDS: CYPROHEPTADINE HCL 4 MG TAB PO ONE (21:54)
[2025-10-28 23:03] LABS: Base Excess VBG -2.8 mEq/L; HCO3 VBG 22 mmol/L; Oxygen Saturation VBG 84.7 %; PCO2 VBG 37 mmHg (38-50); PO2 VBG 47 mmHg; pH VBG 7.38 (7.36-7.41)
[2025-10-28 23:04] LABS: Creatine Kinase 115.0 U/L (26-192)
--- NOTE | 2025-10-28 23:29 | Emergency Department Note ---
ED Visit Note Endotracheal Intubation Indication: anaphylaxis. The patient was on 100% oxygen via BVM prior to the procedure. Suction, airway equipment, RSI drugs, respiratory equipment, and appropriate personnel were prepared prior to the initiation of the procedure. A time out was taken. Induction was performed with succinylcholine and etomidate. After observing the clinical benefit of the medications, the airway was easily visualized utilizing a [place] scope. no airway edema was noted. A 7.5 size ETT tube was placed atraumatically to 25 cm using standard technique. The cuff inflated without signs of malfunction. There were bilateral breath sounds, positive colormetric change, no gastric sounds, and post procedure pulse oximetry was 96%. Post i ntubation sedation was administered using Versed and fentanyl. There were no complications. .
[2025-10-28 23:34] LABS: Anion Gap 5.0 (3-11); Blood Urea Nitrogen 13.0 mg/dl (6-23); Calcium 7.8 mg/dl (8.6-10.3); Carbon Dioxide 22.0 mmol/L (21-32); Chloride 110.0 mmol/L (98-107); Creatinine Clr Calc Pharmacy 81.6 ml/min; Glucose 150.0 mg/dl (70-99(Fasting)); Potassium 4.4 mmol/L (3.5-5.1); Sodium 137.0 mmol/L (136-145)
[2025-10-28] MEDS: MIDAZOLAM BOLUS FROM BAG IV PRN (23:55)
[2025-10-29] MEDS: LANTUS PER UNIT CHARGE SC SCH (00:06)
[2025-10-29] MEDS: HYDROmorphone INJ 1 MG/ML SYRINGE IV PRN ×2 (00:32→03:15)
--- NOTE | 2025-10-29 01:43 | Electrocardiogram Report ---
Test Reason : Blood Pressure : */* mmHG Vent. Rate : 70 BPM Atrial Rate : 70 BPM P-R Int : 136 ms QRS Dur : 84 ms QT Int : 406 ms P-R-T Axes : 51 12 37 degrees QTcB Int : 438 ms Sinus rhythm with occasional Premature ventricular complexes Inferior infarct , age undetermined Possible Anterior infarct , age undetermined Abnormal ECG When compared with ECG of 19-Mar-2025 10:14, Premature ventricular complexes are now Present Borderline criteria for Anterior infarct are now Present Confirmed by Mary Montana ([facility]) on 10/29/2025 1:43:28 AM Referred By: REFERRED SELF Confirmed By: Mary Montana
[2025-10-29] MEDS ORDERED: LABETALOL HCL IV 5 MG/ML 20ML IV PRN (03:10)
[2025-10-29] MEDS: HYDROmorphone INJ 1 MG/ML SYRINGE ONE (03:36)
[2025-10-29] MEDS: MIDAZOLAM BOLUS FROM BAG IV STA (03:36)
[2025-10-29] MEDS: CISATRACURIUM BESYLATE IV SOLN 2 MG/ML 10 ML VIAL IV STA (03:52)
[2025-10-29] MEDS: CISATRACURIUM BESYLATE IV SOLN 2 MG/ML 10 ML VIAL IV ONE (03:52)
--- NOTE | 2025-10-29 05:18 | XRay Report ---
EXAM: XR chest 1V portable CLINICAL HISTORY: eval lines/tubes TECHNIQUE: An X-ray image of the chest was obtained in AP projection. COMPARISON: 10/28/2025 05:39:23 SUPERVISOR ABATTOIR FINDINGS: The endotracheal tube terminal end is seen 12 mm above the maximilian. A nasogastric tube is seen with its tip in the region of the stomach. Pulmonary Parenchyma: A few atelectatic bands are noted involving bilateral mid lower zone. No obvious pleural effusion is present. Heart and mediastinum: The heart size and shape are normal. No mediastinal widening or masses. No hilar or mediastinal lymphadenopathy. Bony thorax: The bony thorax appears intact without fractures or deformities. Soft tissues: The soft tissues overlying the chest wall are unremarkable. IMPRESSION: The endotracheal tube terminal end is seen 12 mm above the maximilian. Advised repositioning. A few atelectatic bands are noted involving bilateral mid lower zone. - Stable. No obvious pleural effusion is present. Electronically signed by Ramon Koch 10-29-2025 05:18 AM
[2025-10-29] MEDS: PHENYLEPHRINE/NSS 25 MG/250 ML BAG IV SCH (08:06)
[2025-10-29] MEDS ORDERED: STAT IV Infusion **Titration per Protocol STA (08:26)
[2025-10-29 08:30] LABS: Alanine Aminotransferase 38.0 U/L (7-52); Albumin Level 3.5 gm/dl (3.4-5.0); Alkaline Phosphatase 89.0 U/L (34-104); Anion Gap 7.0 (3-11); Bilirubin,Total 0.3 mg/dl (0.2-1.0); Blood Urea Nitrogen 12.0 mg/dl (6-23); Calcium 8.4 mg/dl (8.6-10.3); Carbon Dioxide 24.0 mmol/L (21-32); Chloride 108.0 mmol/L (98-107); Creatinine Clr Calc Pharmacy 86.3 ml/min; Glucose 154.0 mg/dl (70-99(Fasting)); Magnesium 2.3 mg/dl (1.7-2.4); Potassium 4.1 mmol/L (3.5-5.1); Sodium 139.0 mmol/L (136-145); Total Protein 6.2 gm/dl (6.0-8.3)
[2025-10-29] MEDS: HALOPERIDOL LACTATE 5 MG/ML 1 ML VIAL IV STA ×2 (08:35→14:16)
[2025-10-29] MEDS: HALOPERIDOL LACTATE 5 MG/ML 1 ML VIAL ONE (08:35)
[2025-10-29] MEDS: THIAMINE HCL 300 MG in SODIUM CHLORIDE 0.9% 50 ML IV SCH (08:37)
[2025-10-29] MEDS ORDERED: MIDAZOLAM HCL 5 MG/ML 2ML VIAL IV ONE (08:40)
[2025-10-29] MEDS ORDERED: ETOMIDATE 2 MG/ML 20 ML VIAL IV ONE (08:40)
[2025-10-29] MEDS ORDERED: SUCCINYLCHOLINE CHLORIDE 20 MG/ML 10 ML VIAL IV ONE (08:40)
--- NOTE | 2025-10-29 08:47 | Electrocardiogram Report ---
Test Reason : Blood Pressure : */* mmHG Vent. Rate : 90 BPM Atrial Rate : 90 BPM P-R Int : 142 ms QRS Dur : 84 ms QT Int : 380 ms P-R-T Axes : 42 -7 13 degrees QTcB Int : 464 ms Normal sinus rhythm Low voltage QRS Inferior infarct (cited on or before 28-Oct-2025) Possible Anterolateral infarct (cited on or before 28-Oct-2025) Abnormal ECG When compared with ECG of 28-Oct-2025 01:57, (unconfirmed) Premature ventricular complexes are no longer Present Questionable change in initial forces of Lateral leads T wave amplitude has decreased in Anterolateral leads Confirmed by Mary Montana ([facility]) on 10/29/2025 8:47:27 AM Referred By: REFERRED SELF Confirmed By: Mary Montana
--- NOTE | 2025-10-29 08:58 | Critical Care Progress Note ---
Date of Service October 29, 2025 Assessment & Plan (1) Altered mental status: Plan: She remains significantly combative with sedation being weaned. She is given Haldol x 1 today. Will check an MRI of the brain when she is more settled. She was started on cyproheptadine by the overnight team due to the possibility of serotonin syndrome. Encephalitis and meningitis remain a possibility. 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 On exam she has no significant edema today. (3) Difficult airway: Plan: She represents a potential difficult airway given her history of recent edema (4) Sepsis: Plan: Pro-Robert 10/28/2025 is 5.05. MRSA screen was negative. Plan Start Lovenox for chemical prophylaxis to prevent VTE. I spent 15 minutes reviewing the electronic medical record/relevant imaging, 20 minutes discussing diagnosis and treatment plan with patient/family, and 15 minutes discussing care plan with ancillary staff such as RT/RN/pharmacist/refinery operator coking/PT/OT/other consulting medical services. CRITICAL CARE TIME I have personally spent 50 minutes of critical care time in the direct management of this patient. This is a life/limb threatening event. This includes time spent evaluating patient, direct bedside care, chart review, placing orders, interpretation of diagnostic studies, discussion with consultants, patient, and family members, as well as other required patient management activities. This time is exclusive of all separately billable procedures, and teaching time and separate from and in addition to any other critical care service time. Admission and Anticipated Discharge Date Admission Date: October 28, 2025 Subjective Patient requiring high amounts of Versed and Precedex. When we wean the Precedex and Versed, the patient became combative and was confused. I did use the glide scope bronchoscope to evaluate her airway from outside of the ET tube. I was able to visualize the endotracheal tube cuff without any significant edema noted. When I deflated the cuff there was evidence of an air leak which was audible. Patient remains in restraints. She will be given 5 mg IV Haldol due to severe combative behavior which can lead to injury to herself and impair also unable to provide medical care for her. Review of Systems Review of Systems: Unobtainable due to cognitive status and Unobtainable due to endotracheal tube Physical Exam Physical Exam: Constitutional: Patient appears to be of their stated age. Patient is in no apparent distress. Patient is well-developed. Eyes: Pupils are equal round and reactive to light. Conjunctivae are normal. Anicteric sclera. Ears nose, mouth and throat: Endotracheal tube in place. Neck: Trachea is midline. Visual inspection is normal. Respiratory: Tachypneic. Mild rales. Cardiovascular: Regular rate and rhythm. No murmurs. No edema. Gastrointestinal: Normal bowel sounds, soft, nontender and nondistended. No hepatosplenomegaly noted. Musculoskeletal: No cyanosis. Patient is able to move all extremities. Skin: No rashes, warm dry and intact. Neurologic: No obvious focal neurological deficits seen. Psychiatric: Confused and I unable to respond to commands appropriately. Results & Data Results & Data Vital Signs (Past 12 Hours) Vital Signs Temp Pulse Resp BP Pulse Ox O2 Del Method FiO2 10/29/25 07:12 60 19 98 40 10/29/25 06:46 188/86 H 10/29/25 06:45 37.2 C 61 18 98 10/29/25 06:31 189/94 H 10/29/25 06:31 189/94 H 10/29/25 06:31 189/94 H 10/29/25 06:31 189/94 H 10/29/25 06:31 189/94 H 10/29/25 06:30 37.2 C 61 18 99 10/29/25 06:16 189/92 H 10/29/25 06:16 189/92 H 10/29/25 06:16 189/92 H 10/29/25 06:16 189/92 H 10/29/25 06:16 189/92 H 10/29/25 06:15 37.2 C 61 18 98 10/29/25 06:13 187/85 H 10/29/25 06:13 187/85 H 10/29/25 06:12 37.2 C 61 18 98 10/29/25 06:01 189/92 H 10/29/25 06:01 189/92 H 10/29/25 06:01 189/92 H 10/29/25 06:01 189/92 H 10/29/25 06:01 189/92 H 10/29/25 06:00 37.2 C 60 18 98 10/29/25 05:46 184/85 H 10/29/25 05:46 184/85 H 10/29/25 05:46 184/85 H 10/29/25 05:46 184/85 H 10/29/25 05:45 37.2 C 60 18 97 10/29/25 05:31 185/90 H 10/29/25 05:31 185/90 H 10/29/25 05:31 185/90 H 10/29/25 05:31 185/90 H 10/29/25 05:31 185/90 H 10/29/25 05:30 37.2 C 61 18 97 10/29/25 05:16 184/85 H 10/29/25 05:16 184/85 H 10/29/25 05:16 184/85 H 10/29/25 05:16 184/85 H 10/29/25 05:16 184/85 H 10/29/25 05:15 37.2 C 61 18 97 10/29/25 05:01 179/87 H 10/29/25 05:01 179/87 H 10/29/25 05:01 179/87 H 10/29/25 05:01 179/87 H 10/29/25 05:01 179/87 H 10/29/25 05:00 37.2 C 62 18 96 10/29/25 04:46 175/85 H 10/29/25 04:46 175/85 H 10/29/25 04:46 175/85 H 10/29/25 04:46 175/85 H 10/29/25 04:30 37.2 C 63 18 169/88 H 96 10/29/25 04:16 159/84 H 10/29/25 04:15 37.2 C 74 18 91 10/29/25 04:08 Mechanical Vent 10/29/25 04:01 186/95 H 10/29/25 04:00 37.3 C 121 H 18 91 10/29/25 04:00 50 10/29/25 03:30 63 20 96 50 10/29/25 03:17 158/73 H 10/29/25 03:15 37.2 C 102 H 37 H 92 10/29/25 03:02 186/89 H 10/29/25 03:00 37.2 C 62 18 97 10/29/25 02:29 182/86 H 10/29/25 02:27 37.2 C 62 18 97 10/29/25 02:16 184/87 H 10/29/25 02:15 37.2 C 63 18 97 10/29/25 02:00 37.2 C 63 18 97 10/29/25 01:41 180/85 H 10/29/25 01:39 37.2 C 63 18 97 10/29/25 01:18 37.3 C 64 18 97 10/29/25 01:16 176/85 H 10/29/25 01:15 37.3 C 63 18 97 10/29/25 01:00 37.3 C 64 18 97 10/29/25 00:16 185/88 H 10/29/25 00:15 37.3 C 66 18 97 10/29/25 00:13 64 18 96 50 10/29/25 00:00 66 10/29/25 00:00 37.3 C 66 18 95 10/29/25 00:00 50 10/28/25 23:16 164/81 H 10/28/25 23:15 37.3 C 64 18 96 10/28/25 23:03 37.3 C 65 18 95 10/28/25 23:01 152/76 H 10/28/25 23:01 152/76 H 10/28/25 23:01 152/76 H 10/28/25 23:01 152/76 H 10/28/25 23:01 152/76 H 10/28/25 23:00 37.3 C 67 18 95 10/28/25 22:59 140/75 10/28/25 22:59 140/75 10/28/25 22:57 37.3 C 68 28 H 91 10/28/25 22:31 169/88 H 10/28/25 22:31 169/88 H 10/28/25 22:31 169/88 H 10/28/25 22:31 169/88 H 10/28/25 22:31 169/88 H 10/28/25 22:30 37.3 C 64 18 98 10/28/25 22:16 164/89 H 10/28/25 22:16 164/89 H 10/28/25 22:16 164/89 H 10/28/25 22:16 164/89 H 10/28/25 22:16 164/89 H 10/28/25 22:15 37.3 C 65 18 97 10/28/25 22:01 154/85 H 10/28/25 22:01 154/85 H 10/28/25 22:01 154/85 H 10/28/25 22:01 154/85 H 10/28/25 22:01 154/85 H 10/28/25 22:00 37.3 C 67 18 97 10/28/25 21:46 159/97 H 10/28/25 21:46 159/97 H 10/28/25 21:46 159/97 H 10/28/25 21:46 159/97 H 10/28/25 21:46 159/97 H 10/28/25 21:45 37.4 C 79 18 96 10/28/25 21:32 37.5 C 70 18 97 10/28/25 21:31 154/87 H 10/28/25 21:31 154/87 H 10/28/25 21:31 154/87 H 10/28/25 21:31 154/87 H 10/28/25 21:31 154/87 H 10/28/25 21:29 37.6 C H 69 18 97 10/28/25 21:16 152/82 H 10/28/25 21:16 152/82 H 10/28/25 21:16 152/82 H 10/28/25 21:16 152/82 H 10/28/25 21:16 152/82 H 10/28/25 21:14 37.7 C H 70 18 95 10/28/25 21:02 37.8 C H 72 18 96 10/28/25 21:02 152/92 H 10/28/25 21:02 152/92 H 10/28/25 21:02 152/92 H 10/28/25 21:02 152/92 H Coding Level of Care Code 40871 CRITICAL CARE 1ST 30-74M Diagnoses Altered mental status R41.82 Anaphylactic reaction T78.2XXA Difficult airway T88.4XXA Sepsis A41.9
--- NOTE | 2025-10-29 10:36 | Pharmacy Report ---
Pharmacy PK ABX Note - Date of Service October 29, 2025 - Assessment and Plan Assessment 60 year old F receiving vancomycin and cefepime for empiric coverage. Pertinent microbiologic data includes: negative MRSA Nasal Swab, blood culture x1 pending. * Presents 10/28 with back pain * Anaphylaxis to contrast media, emergently intubated * Agitation, difficult to sedate; possible serotonin syndrome * WBC on arrival 15.95 (previously on prednisone taper outpatient from 10/25 for back pain, now on dexamethasone) * Tmax 38.4 Day #1 of antimicrobial therapy. Plan Vancomycin * Loading dose: 1500 mg IV x 1 (given 10/28 @2100) * Maintenance dose: 1000 mg IV every 12 hours * Regimen is predicted to achieve target AUC/JUVE of 400-600 mg/L.hr * Level will be ordered if treatment continues past 48 hours of empiric coverage Pharmacy will continue to follow and will adjust dose/frequency as necessary. Thank you. Pharmacy has transitioned to AUC monitoring for vancomycin. AUC/JUVE is the preferred PK/PD target and is associated with decreased risk of nephrotoxicity compared to traditional trough targets.
[2025-10-29] MEDS: ENOXAPARIN INJ 40 MG/0.4 ML SYR SQ SCH (10:47)
[2025-10-29] MEDS: VANCOMYCIN HCL / NSS 1,000 MG/270 ML BAG IV SCH (10:56)
[2025-10-29 11:24] LABS: Hematocrit (blood only) 36.7 % (37.0-47.0); Hemoglobin 12.3 g/dL (12.0-16.0); Immature Granulocytes # (auto) 0.06 K/uL (0.01-0.20); Immature Granulocytes % (auto) 0.6 %; Mean Corpuscular Hemoglobin 28.5 pg (25.0-34.0); Mean Corpuscular Volume 85.2 fL (80.0-100.0); Platelet Count 190 K/uL (130-400); RDW Standard Deviation 45.9 fL (36.4-46.3); Red Blood Count 4.31 M/uL (4.20-5.40); White Blood Count 10.84 K/ul (4.8-10.8)
[2025-10-29] MEDS ORDERED: VANCOMYCIN HCL 750 MG in SODIUM CHLORIDE 0.9% 250 ML IV SCH (12:00)
--- NOTE | 2025-10-29 12:17 | Pharmacy Report ---
Pharmacy Glycemic Short Note 2 - Date of Service October 29, 2025 - Glycemic Short BSG Results (Last 24 hours): 10/28/25 10/28/25 10/28/25 18:09 22:54 23:52 Glucose 150 H POC Glucose 185 H 168 H 10/29/25 10/29/25 10/29/25 06:04 07:20 10:59 Glucose 154 H POC Glucose 153 H 146 H OUTPATIENT ANTIDIABETIC REGIMEN: * None anti-diabetic medications * A1c 6.5% 10/28/25 ASSESSMENT: 10/29: * Patient received a total of 33 units of insulin yesterday (20 units of basal, and 13 units of bolus) * BSGs came down from 319 to 150s this AM * AM glucose still a little bit high * One dose of dexamethasone 6mg planned for this evening at 1800 * Patient is NPO and will likely be NPO at least until tomorrow * Given downtrend of blood glucose values and unknown duration of NPO status, will loosen the insulin aspart slightly to CF 20, CR 8 * Lantus scale this evening depending on how BSGs trend 10/28: * 60 yo F in ICU receiving treatment for presumed anaphylactic shock from IV co ntrast. Patient received Dexamethasone 10mg + Solu-Medrol early this morning, on pressors and mechanical ventilation. Blood sugars elevated this morning at 319mg/dl - improved with 7 units of NovoLog to 250mg/dl. * Tighten NovoLog and add basal at this time. PLAN FOR INPATIENT GLYCEMIC CONTROL: * Basal insulin * Lantus 0/5/10 units SQ tonight (0 units if BSG <180, 5 units if 180-250, 10 units if BSG >250) * Bolus insulin * NovoLog per scale ACHS or Q6hrs while NPO * Goal Range: Low 140 mg/dL - High 180 mg/dL * Correction Factor: 20 mg/dL/unit * Nutritional / Prandial insulin per carb ratio of 1 unit per 8 grams CHO consumed
--- NOTE | 2025-10-29 12:53 | Hospitalist Progress Note ---
Date of Service October 29, 2025 Assessment & Plan (1) Anaphylactic reaction: Plan: 60-year-old female with past medical history significant for diabetes, dyslipidemia, hypothyroidism, positional sleep apnea, nocturnal hypoxemia, ST elevated [place], hypertension, irritable bowel syndrome, osteoporosis, chronic bilateral back pain, H. pylori infection, depression, PTSD, insomnia, history of adrenal mass, presents with severe back pain and patient had reaction to CT scan contrast now admitted with anaphylactic shock Neuro: #Metabolic Encephalopathy -agitated and not following commands at times -currently RASS -5 to get MR brain imaging Plan: -MR brain ordered Cardiac: #Anaphylactic Shock -Mostly to CT scan contrast dye -Was hypoxic, and hypotensive -Received epinephrine, Decadron, Benadryl and Pepcid in ED -was on epinephrine drip Plan: -S/p intubation -propofol, fentanyl drip -off epinephrine #History of ST elevated [place] -On 07/28/2023 -Status post drug-eluting stents to RCA. Third-degree heart block resolved postprocedure -Postop course complicated by pseudoaneurysm of the right femoral artery access site and underwent ultrasound-guided thrombin injection Plan: -On aspirin, and statin -Holding beta-rose for hypotension #Hypertension -Holding metoprolol and losartan as patient is hypotensive Respiratory: #Acute Hypoxic Respiratory Failure #DELIA -2/2 anaphylaxis -had swelling around airway and extremities, although improving -currently 330/18/40/5 settings Plan: -appreciate ICU assistance -continue empiric abx for concern for infection GI: -lovenox for DVT prophylaxis GERD Renal: -no issues MSK: #Back pain -f/u post acute period Endocrine: #DM Type 2 -Sliding scale #Hyperlipidemia -On statin and Zetia #History of hypothyroidism Psych: #Depression #PTSD -Restart home medication when able to I spent a total of 55 minutes in direct patient care, including [id number] time with the patient and/or family, reviewing medical records, ordering and reviewing diagnostic tests, and coordinating care with other healthcare providers. This time includes: history taking, physical examination, medical decision making, counseling, ECG interpretation, imaging interpretation, lab interpretation, orders, and education, excluding time spent in the performance of separately billed services. Admission and Anticipated Discharge Date Admission Date: October 28, 2025 Subjective Patient seen and examined at bedside. Patient sedated and intubated at this time. Review of Systems Review of Systems: -cannot ask due to mental status Physical Exam Physical Exam: Gen: A&O 0 NAD HEENT: NCAT, EOMI, not icteric. External ears normal. No rhinorrhea. Moist mucous membranes. Neck: Supple, full range of motion, no observable masses, No meningeal sign. Lungs: intubated CV: RRR, no edema. Abdomen: Soft, nondistended, No rebound tenderness. MSK: No joint swelling, no redness. Skin: No rashes, petechiae, lesions. Normal color per patient. Neuro: Normal Gait, Grossly intact. Results & Data Results & Data Vital Signs (Past 12 Hours) Vital Signs Temp Pulse Resp BP Pulse Ox O2 Del Method FiO2 10/29/25 07:12 60 19 98 40 10/29/25 06:46 188/86 H 10/29/25 06:45 37.2 C 61 18 98 10/29/25 06:31 189/94 H 10/29/25 06:31 189/94 H 10/29/25 06:31 189/94 H 10/29/25 06:31 189/94 H 10/29/25 06:31 189/94 H 10/29/25 06:30 37.2 C 61 18 99 10/29/25 06:16 189/92 H 10/29/25 06:16 189/92 H 10/29/25 06:16 189/92 H 10/29/25 06:16 189/92 H 10/29/25 06:16 189/92 H 10/29/25 06:15 37.2 C 61 18 98 10/29/25 06:13 187/85 H 10/29/25 06:13 187/85 H 10/29/25 06:12 37.2 C 61 18 98 10/29/25 06:01 189/92 H 10/29/25 06:01 189/92 H 10/29/25 06:01 189/92 H 10/29/25 06:01 189/92 H 10/29/25 06:01 189/92 H 10/29/25 06:00 37.2 C 60 18 98 10/29/25 05:46 184/85 H 10/29/25 05:46 184/85 H 10/29/25 05:46 184/85 H 10/29/25 05:46 184/85 H 10/29/25 05:45 37.2 C 60 18 97 10/29/25 05:31 185/90 H 10/29/25 05:31 185/90 H 10/29/25 05:31 185/90 H 10/29/25 05:31 185/90 H 10/29/25 05:31 185/90 H 10/29/25 05:30 37.2 C 61 18 97 10/29/25 05:16 184/85 H 10/29/25 05:16 184/85 H 10/29/25 05:16 184/85 H 10/29/25 05:16 184/85 H 10/29/25 05:16 184/85 H 10/29/25 05:15 37.2 C 61 18 97 10/29/25 05:01 179/87 H 10/29/25 05:01 179/87 H 10/29/25 05:01 179/87 H 10/29/25 05:01 179/87 H 10/29/25 05:01 179/87 H 10/29/25 05:00 37.2 C 62 18 96 10/29/25 04:46 175/85 H 10/29/25 04:46 175/85 H 10/29/25 04:46 175/85 H 10/29/25 04:46 175/85 H 10/29/25 04:30 37.2 C 63 18 169/88 H 96 10/29/25 04:16 159/84 H 10/29/25 04:15 37.2 C 74 18 91 10/29/25 04:08 Mechanical Vent 10/29/25 04:01 186/95 H 10/29/25 04:00 37.3 C 121 H 18 91 10/29/25 04:00 50 10/29/25 03:30 63 20 96 50 10/29/25 03:17 158/73 H 10/29/25 03:15 37.2 C 102 H 37 H 92 10/29/25 03:02 186/89 H 10/29/25 03:00 37.2 C 62 18 97 10/29/25 02:29 182/86 H 10/29/25 02:27 37.2 C 62 18 97 10/29/25 02:16 184/87 H 10/29/25 02:15 37.2 C 63 18 97 10/29/25 02:00 37.2 C 63 18 97 10/29/25 01:41 180/85 H 10/29/25 01:39 37.2 C 63 18 97 10/29/25 01:18 37.3 C 64 18 97 10/29/25 01:16 176/85 H 10/29/25 01:15 37.3 C 63 18 97 10/29/25 01:00 37.3 C 64 18 97 Laboratory Results -personally reviewed, WBC 11, creatinine at baseline Medications Administered Aspirin (Aspirin 81 Mg Chew) 81 mg GT [facility] Stop: 11/27/25 09:44 Last Admin: 10/29/25 08:36 Dose: 81 mg Documented By: Admin: 10/28/25 10:00 Dose: 81 mg Documented By: BETTY Atorvastatin Calcium (Atorvastatin 40 Mg Tab) 80 mg PO [facility] Stop: 11/27/25 08:59 Last Admin: 10/29/25 08:36 Dose: 80 mg Documented By: Admin: 10/28/25 09:09 Dose: 80 mg Documented By: BETTY Diphenhydramine HCl (Diphenhydramine Hcl 25 Mg/10 Ml Udc) 25 mg NG Q6H [facility] Stop: 11/27/25 05:59 Last Admin: 10/29/25 10:57 Dose: 25 mg Documented By: Admin: 10/29/25 06:07 Dose: 25 mg Documented By: MARIA T Admin: 10/29/25 00:09 Dose: 25 mg Documented By: MARIA T Admin: 10/28/25 17:23 Dose: 25 mg Documented By: Admin: 10/28/25 12:25 Dose: 25 mg Documented By: Admin: 10/28/25 05:08 Dose: 25 mg Documented By: MARIA T Ezetimibe (Ezetimibe 10 Mg Tab) 10 mg PO [facility] Stop: 11/27/25 08:59 Last Admin: 10/29/25 08:36 Dose: 10 mg Documented By: Admin: 10/28/25 09:09 Dose: 10 mg Documented By: BETTY Enoxaparin Sodium (Enoxaparin Inj 40 Mg/0.4 Ml Syr) 40 mg SQ [facility] Stop: 11/28/25 08:59 Last Admin: 10/29/25 10:47 Dose: 40 mg Documented By: ANGELA Lactated Ringer's (Lr) 1,000 mls @ 15 mls/hr IV .Q24H [facility] Stop: 10/31/25 04:59 Last Admin: 10/29/25 02:57 Dose: 15 mls/hr Documented By: Infusion: 10/29/25 01:55 Dose: Infused Documented By: Infusion: 10/28/25 22:14 Dose: Infused Documented By: Admin: 10/28/25 12:03 Dose: 125 mls/hr Documented By: Infusion: 10/28/25 12:03 Dose: Infused Documented By: RNRomi Admin: 10/28/25 05:00 Dose: 125 mls/hr Documented By: MARIA T Acetaminophen (Ofirmev) 1,000 mg in 100 mls @ 400 mls/hr IV Q8H PRN PRN Reason: As Needed for Fever or Pain Stop: 10/31/25 10:11 Last Infusion: 10/29/25 09:11 Dose: Infused Documented By: Admin: 10/29/25 08:39 Dose: 400 mls/hr Documented By: Infusion: 10/28/25 10:41 Dose: Infused Documented By: Admin: 10/28/25 10:26 Dose: 400 mls/hr Documented By: BETTY Dexmedetomidine/Sodium Chloride (Precedex) 200 mcg in 50 mls @ 0 mls/hr IV .Q0M [facility]; Protocol Stop: 11/01/25 11:29 Last Admin: 10/29/25 12:07 Dose: Not Given Documented By: Admin: 10/29/25 12:07 Dose: Not Given Documented By: Admin: 10/29/25 12:05 Dose: Not Given Documented By: Titration: 10/29/25 10:57 Dose: 0 mcg/kg/hr, 0 mls/hr Documented By: Admin: 10/29/25 08:40 Dose: 0.9 mcg/kg/hr, 15.3 mls/hr Documented By: ANGELA Co-signed By: CMP Titration: 10/29/25 08:24 Dose: Infused Documented By: ANGELA Co-signed By: CMP Titration: 10/29/25 07:13 Dose: 0.9 mcg/kg/hr, 15.3 mls/hr Documented By: TMG Co-signed By: ES Admin: 10/29/25 05:07 Dose: 0.9 mcg/kg/hr, 15.3 mls/hr Documented By: TMG Co-signed By: TLM Titration: 10/29/25 05:07 Dose: Infused Documented By: TMG Co-signed By: TLM Titration: 10/29/25 04:21 Dose: 0.9 mcg/kg/hr, 15.3 mls/hr Documented By: Admin: 10/29/25 01:36 Dose: 0.8 mcg/kg/hr, 13.6 mls/hr Documented By: TMG Co-signed By: JT Titration: 10/29/25 01:36 Dose: Infused Documented By: TMG Co-signed By: JT Titration: 10/28/25 23:54 Dose: 0.8 mcg/kg/hr, 13.6 mls/hr Documented By: Admin: 10/28/25 22:02 Dose: 0.7 mcg/kg/hr, 11.9 mls/hr Documented By: TMG Co-signed By: JT Titration: 10/28/25 22:02 Dose: Infused Documented By: TMG Co-signed By: JT Titration: 10/28/25 20:00 Dose: 0.7 mcg/kg/hr, 11.9 mls/hr Documented By: Titration: 10/28/25 19:57 Dose: 0 mcg/kg/hr, 0 mls/hr Documented By: Admin: 10/28/25 19:35 Dose: 0.7 mcg/kg/hr, 11.9 mls/hr Documented By: TLM Co-signed By: JT Titration: 10/28/25 19:35 Dose: Infused Documented By: TLM Co-signed By: JT Titration: 10/28/25 19:33 Dose: 0.7 mcg/kg/hr, 11.9 mls/hr Documented By: Admin: 10/28/25 18:14 Dose: Not Given Documented By: Titration: 10/28/25 18:01 Dose: 0.7 mcg/kg/hr, 11.9 mls/hr Documented By: Admin: 10/28/25 18:00 Dose: Not Given Documented By: Titration: 10/28/25 16:50 Dose: 0.6 mcg/kg/hr, 10.2 mls/hr Documented By: Admin: 10/28/25 16:14 Dose: 0.5 mcg/kg/hr, 8.5 mls/hr Documented By: Titration: 10/28/25 16:14 Dose: Infused Documented By: Titration: 10/28/25 15:34 Dose: 0.5 mcg/kg/hr, 8.5 mls/hr Documented By: Admin: 10/28/25 12:03 Dose: 0.4 mcg/kg/hr, 6.8 mls/hr Documented By: RNC Co-signed By: ZAKI Midazolam HCl (Versed) 125 mg in 250 mls @ 14 mls/hr IV .[id number] [facility]; Protocol Stop: 11/27/25 19:59 Last Titration: 10/29/25 07:14 Dose: 7 mg/hr, 14 mls/hr Documented By: TMG Co-signed By: ES Titration: 10/29/25 06:07 Dose: 7 mg/hr, 14 mls/hr Documented By: TMG Co-signed By: JT Titration: 10/29/25 03:37 Dose: 6 mg/hr, 12 mls/hr Documented By: JT Co-signed By: TMG Titration: 10/29/25 00:07 Dose: 5 mg/hr, 10 mls/hr Documented By: TMG Co-signed By: JMS Titration: 10/28/25 23:55 Dose: 3 mg/hr, 6 mls/hr Documented By: TMG Co-signed By: JT Titration: 10/28/25 22:04 Dose: 2.5 mg/hr, 5 mls/hr Documented By: TMG Co-signed By: VK Admin: 10/28/25 19:57 Dose: 2 mg/hr, 4 mls/hr Documented By: TLM Co-signed By: JAnna Thiamine HCl 300 mg/ Sodium (Chloride) 53 mls @ 210 mls/hr IV QAM [facility] Stop: 11/02/25 09:14 Last Infusion: 10/29/25 09:11 Dose: Infused Documented By: Admin: 10/29/25 08:37 Dose: 210 mls/hr Documented By: ANGELA Phenylephrine HCl (Phenylephrine/Nss) 25 mg in 250 mls @ 20.43 mls/hr IV .[id number] [facility]; Protocol Stop: 11/27/25 20:44 Last Admin: 10/29/25 08:36 Dose: Not Given Documented By: Admin: 10/29/25 08:06 Dose: Not Given Documented By: ANGELA Propofol (Diprivan) 1,000 mg in 100 mls @ 8.256 mls/hr IV .Q12H7M [facility]; Protocol Stop: 11/01/25 08:29 Last Admin: 10/29/25 10:47 Dose: 20 mcg/kg/min, 8.3 mls/hr Documented By: ANGELA Co-signed By: SIERRA Vancomycin HCl (Vancomycin Hcl / Nss) 1,000 mg in 270 mls @ 200 mls/hr IV Q12H [facility] Stop: 10/31/25 10:29 Last Infusion: 10/29/25 12:07 Dose: Infused Documented By: Admin: 10/29/25 10:56 Dose: 200 mls/hr Documented By: ANGELA Insulin Aspart (Insulin Aspart Per Unit Charge) 0 units SC Q6 [facility] Stop: 11/27/25 05:59 Last Admin: 10/29/25 12:05 Dose: Not Given Documented By: Admin: 10/29/25 06:07 Dose: Not Given Documented By: MARIA T Admin: 10/29/25 00:06 Dose: Not Given Documented By: Admin: 10/28/25 18:15 Dose: 1 units Documented By: RNRomi Co-signed By: DANYELLE Admin: 10/28/25 12:10 Dose: 5 units Documented By: BETTY Co-signed By: SIERRA Admin: 10/28/25 05:08 Dose: 7 units Documented By: TMG Co-signed By: ALKA
--- NOTE | 2025-10-29 13:18 | Magnetic Resonance Report ---
MRI OF THE BRAIN WITHOUT IV CONTRAST CLINICAL HISTORY: Back pain. Possible encephalitis or meningitis. COMPARISON STUDY: MRI of the brain March 19, 2025. Head CT and CTA of the head March 19, 2025. TECHNIQUE: MRI of the brain was performed utilizing various T1 and T2-weighted sequences in the axial , sagittal, and coronal planes. IV contrast was not administered for this examination. FINDINGS: Brain parenchyma: There are no foci of restricted diffusion to suggest acute infarct. No acute intrac ranial hemorrhage, midline shift or mass effect is present. No intracranial masses are identified on unenhanced exam. Scattered white matter T2 hyperintense foci are unchanged since MRI of March 19. Ventricles, sulci, and cisterns: There is no hydrocephalus. The basal cisterns are patent. There are no extra-axial collections. Pituitary and sella: Unremarkable. Intracranial vasculature: Flow-voids for the major intracranial vessels are present. Orbits: Orbital contents are unremarkable. Sinuses and mastoids: Small amount of secretions within the pharynx are likely related to intubation. There is a small amount of fluid within the left mastoid air cells. Calvarium: No calvarial lesions are identified. Cervical cord: Partially visualized cervical spinal cord is normal in morphology and signal intensity . IMPRESSION: 1. No acute intracranial findings. 2. No change in appearance of the brain since MRI of March 19, 2025. ACT 112: Negative or not required by law. Electronically signed by: Stephen Sosa M.D. 10/29/2025 1:16 PM
[2025-10-29] MEDS: CYPROHEPTADINE HCL 4 MG TAB PO SCH (16:54)
[2025-10-29] MEDS: CEFEPIME 2000MG 2,000 MG/20 ML SYR IV SCH (16:54)
[2025-10-29] MEDS: HYDROmorphone INJ 2 MG/ML SYR/VIAL IV PRN (17:04)
[2025-10-29] MEDS: dexAMETHasone 6 MG in SYRINGE 0 ML IV ONE (17:39)
[2025-10-29] MEDS ORDERED: DEXAMETHASONE SOD INJ 4 MG/ML VIAL IV ONE (18:35)
[2025-10-29] MEDS: LANTUS PER UNIT CHARGE SC ONE (20:41)
[2025-10-29] MEDS: PROPOFOL BOLUS FROM BAG IV PRN (20:47)
[2025-10-30] MEDS: MIDAZOLAM BOLUS FROM BAG IV PRN (00:48)
[2025-10-30 05:00] LABS: Hematocrit (blood only) 34.4 % (37.0-47.0); Hemoglobin 11.8 g/dL (12.0-16.0); Immature Granulocytes # (auto) 0.13 K/uL (0.01-0.20); Immature Granulocytes % (auto) 1.6 %; Mean Corpuscular Hemoglobin 29.2 pg (25.0-34.0); Mean Corpuscular Volume 85.1 fL (80.0-100.0); Platelet Count 186 K/uL (130-400); RDW Standard Deviation 46.4 fL (36.4-46.3); Red Blood Count 4.04 M/uL (4.20-5.40); White Blood Count 7.90 K/ul (4.8-10.8)
[2025-10-30 05:18] LABS: Alanine Aminotransferase 31.0 U/L (7-52); Albumin Level 3.5 gm/dl (3.4-5.0); Alkaline Phosphatase 78.0 U/L (34-104); Anion Gap 8.0 (3-11); Bilirubin,Total 0.4 mg/dl (0.2-1.0); Blood Urea Nitrogen 15.0 mg/dl (6-23); Calcium 8.6 mg/dl (8.6-10.3); Carbon Dioxide 24.0 mmol/L (21-32); Chloride 107.0 mmol/L (98-107); Creatinine Clr Calc Pharmacy 77.6 ml/min; Glucose 139.0 mg/dl (70-99(Fasting)); Magnesium 2.1 mg/dl (1.7-2.4); Potassium 4.0 mmol/L (3.5-5.1); Sodium 139.0 mmol/L (136-145); Total Protein 6.4 gm/dl (6.0-8.3)
[2025-10-30] MEDS: HYDROmorphone INJ 0.5 MG/0.5 ML SYR IV STA (08:39)
[2025-10-30] MEDS ORDERED: ACETAMINOPHEN 1,000 MG/100 ML VIAL IV PRN (08:41)
[2025-10-30] MEDS ORDERED: Nursing to Pharmacy Communication SCH (08:45)
[2025-10-30] MEDS: KETOROLAC TROMETHAMINE 15 MG/ML VIAL IV ONE (08:48)
--- NOTE | 2025-10-30 09:01 | Critical Care Progress Note ---
Date of Service October 30, 2025 Assessment & Plan (1) Altered mental status: Plan: MRI brain negative. TSH unremarkable. Patient in significant pain due to lower back pain. Appears alert and oriented today. Holding on restarting home psychiatric medications due to concern of serotonin syndrome upon admission. Can slowly reintroduce these with time. (2) Anaphylactic reaction: Plan: Edema and anaphylaxis appears to resolved. Will hold on additional Decadron at this time. Will need allergy and immunology follow-up as an outpatient. (3) Difficult airway: Plan: She represents a potential difficult airway given her history of recent edema. (4) Sepsis: Plan: Pro-Robert 10/28/2025 is 5.05. MRSA screen was negative. Repeat procalcitonin today. Chest x-ray reveals a right lower lobe infiltrate. Will start Zosyn for presumptive hospital-acquired pneumonia. Start azithromycin. Extubated 10/30/2025. Check blood and urine cultures. Obtain urine Legionella antigen. (5) Chest x-ray abnormality: Plan: Repeat procalcitonin and BNP today. Possible pneumonia as above. (6) Fever: Plan: Blood cultures and urine cultures as above. (7) Strain of lumbar region: Plan: Multimodal pain control with opioids, Tylenol and NSAIDs. Can try lidocaine patch and K-pad as well. Plan Continue Lovenox 40 mg subcu for DVT prophylaxis. Start Protonix for stress ulcer prophylaxis mostly in the context of NSAID use. I spent 15 minutes reviewing the electronic medical record/relevant imaging, 20 minutes discussing diagnosis and treatment plan with patient/family, and 15 minutes discussing care plan with ancillary staff such as RT/RN/pharmacist/stand up forklift operator/PT/OT/other consulting medical services. CRITICAL CARE TIME I have personally spent 50 minutes of critical care time in the direct ma nagement of this patient. This is a life/limb threatening event. This includes time spent evaluating patient, direct bedside care, chart review, placing orders, interpretation of diagnostic studies, discussion with consultants, patient, and family members, as well as other required patient management activities. This time is exclusive of all separately billable procedures, and teaching time and separate from and in addition to any other critical care service time. Admission and Anticipated Discharge Date Admission Date: October 28, 2025 Subjective Patient successfully extubated today after cuff leak was identified. No stridor status post extubation. Patient complaining of severe lower back pain which was the reason for admission initially. She also has mild dyspnea. Patient with a fever this morning. Review of Systems Review of Systems: All systems reviewed & are unremarkable except as noted in HPI & below Physical Exam Physical Exam: Constitutional: Writhing around in pain. Eyes: Pupils are equal round and reactive to light. Conjunctivae are normal. Anicteric sclera. Ears nose, mouth and throat: Mallampati class 2. Normal posterior oropharynx. Uvula is midline. Neck: Trachea is midline. Visual inspection is normal. Respiratory: Tachypneic. Mild crackles at the right lung base. Cardiovascular: Tachycardic. Regular rhythm. No murmurs. No edema. Gastrointestinal: Normal bowel sounds, soft, nontender and nondistended. No hepatosplenomegaly noted. Musculoskeletal: No cyanosis. Patient is able to move all extremities. Skin: No rashes, warm dry and intact. Neurologic: No obvious focal neurological deficits seen. Psychiatric: Alert and oriented x3 with a euthymic affect. Results & Data Results & Data Vital Signs (Past 12 Hours) Vital Signs Temp Pulse Resp BP Pulse Ox FiO2 10/30/25 06:17 173/79 H 10/30/25 06:17 173/79 H 10/30/25 06:17 173/79 H 10/30/25 06:17 173/79 H 10/30/25 06:17 173/79 H 10/30/25 06:17 38.3 C H 10/30/25 06:15 85 19 95 10/30/25 06:00 89 29 H 98 10/30/25 05:47 183/82 H 10/30/25 05:47 183/82 H 10/30/25 05:47 183/82 H 10/30/25 05:47 183/82 H 10/30/25 05:47 183/82 H 10/30/25 05:45 63 22 97 10/30/25 05:17 163/73 H 10/30/25 05:17 163/73 H 10/30/25 05:17 163/73 H 10/30/25 05:17 163/73 H 10/30/25 05:17 163/73 H 10/30/25 05:15 57 L 18 97 10/30/25 05:00 57 L 18 97 10/30/25 04:47 155/67 H 10/30/25 04:47 155/67 H 10/30/25 04:47 155/67 H 10/30/25 04:47 155/67 H 10/30/25 04:47 155/67 H 10/30/25 04:45 56 L 22 96 10/30/25 04:40 18 40 10/30/25 04:17 167/75 H 10/30/25 04:17 167/75 H 10/30/25 04:17 167/75 H 10/30/25 04:17 167/75 H 10/30/25 04:17 167/75 H 10/30/25 04:15 64 18 96 10/30/25 04:00 55 L 18 96 10/30/25 04:00 40 10/30/25 03:47 168/70 H 10/30/25 03:47 168/70 H 10/30/25 03:47 168/70 H 10/30/25 03:47 168/70 H 10/30/25 03:47 168/70 H 10/30/25 03:45 54 L 18 96 10/30/25 03:17 156/70 H 10/30/25 03:17 156/70 H 10/30/25 03:17 156/70 H 10/30/25 03:17 156/70 H 10/30/25 03:17 156/70 H 10/30/25 03:15 54 L 18 95 10/30/25 03:00 55 L 18 95 10/30/25 02:47 155/68 H 10/30/25 02:47 155/68 H 10/30/25 02:47 155/68 H 10/30/25 02:47 155/68 H 10/30/25 00:55 37.3 C 10/30/25 00:00 40 10/29/25 23:45 52 L 10/29/25 23:00 61 18 94 40 10/29/25 21:17 154/69 H 10/29/25 21:15 53 L 18 94 10/29/25 21:00 51 L 18 94 Coding Level of Care Code 68442 CRITICAL CARE 1ST 30-74M Diagnoses Altered mental status R41.82 Anaphylactic reaction T78.2XXA Difficult airway T88.4XXA Sepsis A41.9 Chest x-ray abnormality R93.89 Fever R50.9 Strain of lumbar region S39.012A Encounter type: initial encounter (7) Strain of lumbar region Encounter type: initial encounter Qualified Code(s): S39.012A - Strain of muscle, fascia and tendon of lower back, initial encounter
[2025-10-30] MEDS ORDERED: KETOROLAC TROMETHAMINE 15 MG/ML VIAL IM PRN (09:08)
--- NOTE | 2025-10-30 09:21 | XRay Report ---
XR chest 1V portable HISTORY: 60 years-old Female hypoxia COMPARISON: 10/29/2025 TECHNIQUE: AP view of the chest FINDINGS: Cardiac silhouette is enlarged. Atherosclerosis of the aorta. No pneumothorax. Layering pleural effus ions with bibasilar consolidation, progressed from prior. Pulmonary vascular congestion with intersti tial coarsening. Status post extubation with removal of the enteric tube. The bones of the chest appe ar grossly intact. IMPRESSION: 1. Status post extubation with removal of the enteric tube. 2. Cardiomegaly with interstitial pulmonary edema. 3. Increased size of the layering pleural effusions with progressive bibasilar consolidation. ACT 112: Negative or not required by law. The above report was generated using voice recognition software. It may contain grammatical, syntax o r spelling errors. Electronically signed by: Jose Stahl M.D. 10/30/2025 9:20 AM
[2025-10-30] MEDS: AZITHROMYCIN 500 MG/255 ML BAG IV ONE (09:35)
[2025-10-30] MEDS: PANTOprazole 40 MG/10 ML SYR IV SCH (09:35)
[2025-10-30] MEDS: PIPERACILLIN/TAZOBACTAM 4.5 GM/100 ML BAG IV ONE (09:52)
[2025-10-30] MEDS: LORazepam Inj 1 MG in SYRINGE 0.5 ML IV STA (10:00)
--- NOTE | 2025-10-30 11:13 | Pharmacy Report ---
Pharmacy Glycemic Short Note 2 - Date of Service October 30, 2025 - Glycemic Short BSG Results (Last 24 hours): 10/29/25 10/29/25 10/29/25 16:55 20:36 23:22 Glucose POC Glucose 117 H 144 H 157 H 10/30/25 10/30/25 04:33 05:47 Glucose 139 H POC Glucose 134 H OUTPATIENT ANTIDIABETIC REGIMEN: * None anti-diabetic medications * A1c 6.5% 10/28/25 ASSESSMENT: 10/30: * Patient did not receive any insulin yesterday and so far today * BSGs have ranged 114-157, within range * No more steroids per pulmonary * Patient extubated today, still NPO for now * Given that there will be no more steroids and patient is NPO, will utilize stress level 2 insulin sliding scale (CF 35, CR 12) * Hold off on further basal insulin for now - watch BSGs trend when/if patient gets diet and can reassess need for basal insulin 10/29: * Patient received a total of 33 units of insulin yesterday (20 units of basal, and 13 units of bolus) * BSGs came down from 319 to 150s this AM * AM glucose still a little bit high * One dose of dexamethasone 6mg planned for this evening at 1800 * Patient is NPO and will likely be NPO at least until tomorrow * Given downtrend of blood glucose values and unknown duration of NPO status, will loosen the insulin aspart slightly to CF 20, CR 8 * Lantus scale this evening depending on how BSGs trend 10/28: * 60 yo F in ICU receiving treatment for presumed anaphylactic shock from IV contrast. Patient received Dexamethasone 10mg + Solu-Medrol early this morning, on pressors and mechanical ventilation. Blood sugars elevated this morning at 319mg/dl - improved with 7 units of NovoLog to 250mg/dl. * Tighten NovoLog and add basal at this time. PLAN FOR INPATIENT GLYCEMIC CONTROL: * Basal insulin * NONE * Bolus insulin * NovoLog per scale ACHS or Q6hrs while NPO * Goal Range: Low 140 mg/dL - High 180 mg/dL * Correction Factor: 35 mg/dL/unit * Nutritional / Prandial insulin per carb ratio of 1 unit per 12 grams CHO consumed
[2025-10-30 11:15] LABS: Appearance Urine Clear (Clear); Bacteria Urine Automated None Seen (None Seen); Cast Urine Automated 0-2 /lpf (0-2); Epithelial Cell Urine Auto 0-2 /hpf (0-2); Glucose Urine UA Negative (Negative); RBC Urine Automated 0-2 /hpf (0-2); WBC Urine Automated 0-5 /hpf (0-5)
[2025-10-30] MEDS: LIDOCAINE 5% 1 PATCH TD SCH (11:28)
[2025-10-30] MEDS: HYDROmorphone INJ 2 MG/ML SYR/VIAL IV PRN (11:33)
[2025-10-30] MEDS: AZITHROMYCIN 250 MG in DEXTROSE 5% 250 ML IV SCH (11:41)
[2025-10-30] MEDS: FUROSEMIDE 40 MG/4 ML VIAL IV ONE ×2 (12:06→18:09)
[2025-10-30] MEDS ORDERED: STAT IV Infusion **Titration per Protocol STA (12:47)
[2025-10-30] MEDS: dexMEDEtomidine 200 MCG/50 ML BAG IV SCH (12:53)
--- NOTE | 2025-10-30 13:47 | Hospitalist Progress Note ---
Date of Service October 30, 2025 Assessment & Plan (1) Anaphylactic reaction: Plan: 60-year-old female with past medical history significant for diabetes, dyslipidemia, hypothyroidism, positional sleep apnea, nocturnal hypoxemia, ST elevated [place], hypertension, irritable bowel syndrome, osteoporosis, chronic bilateral back pain, H. pylori infection, depression, PTSD, insomnia, history of adrenal mass, presents with severe back pain and patient had reaction to CT scan contrast now admitted with anaphylactic shock Neuro: #Metabolic Encephalopathy -agitated and not following commands at times -brain imaging unremarkable -suspect metabolic encephalopathy Plan: -MR brain ordered -discussed personally with director of intelligence, precedex for now for agitation -may benefit from 2.5mg zyprexa at bedtime vs. seroquel pending response to precedex -consider restarting home psych meds adriana jaime Cardiac: #Anaphylactic Shock/Angioedema -Mostly to CT scan contrast dye -Was hypoxic, and hypotensive -Received epinephrine, Decadron, Benadryl and Pepcid in ED -was on epinephrine drip Plan: -extubated -off epinephrine #History of ST elevated [place] -On 07/28/2023 -Status post drug-eluting stents to RCA. Third-degree heart block resolved postprocedure -Postop course complicated by pseudoaneurysm of the right femoral artery access site and underwent ultrasound-guided thrombin injection Plan: -On aspirin, and statin -Holding beta-rose for hypotension #Hypertension -Holding metoprolol and losartan as patient is hypotensive Respiratory: #Acute Hypoxic Respiratory Failure #VAP #DELIA -2/2 anaphylaxis -had swelling around airway and extremities, although improving -VAP suggested by imaging findings, cough and fever, symptoms appearing after intubation and worsening today Plan: -appreciate ICU assistance -continue empiric abx for concern for infection GI: -lovenox for DVT prophylaxis GERD Renal: -no issues MSK: #Back pain -f/u post acute period Endocrine: #DM Type 2 -Sliding scale #Hyperlipidemia -On statin and Zetia #History of hypothyroidism Psych: #Depression #PTSD -could be having some rebound anxiety/withdrawal without seroquel 300mg at bedtime I spent a total of 55 minutes in direct patient care, including [id number] time with the patient and/or family, reviewing medical records, ordering and reviewing diagnostic tests, and coordinating care with other healthcare providers. This time includes: history taking, physical examination, medical decision making, counseling, ECG interpretation, imaging interpretation, lab interpretation, orders, and education, excluding time spent in the performance of separately billed services. Admission and Anticipated Discharge Date Admission Date: October 28, 2025 Subjective Patient seen and examined at bedside. Patient extubated, confused at this time and pulling on her CPAP. Denies pain but not sure where she is at. States she feels SOB. Discussed case with at bedside extensively. Review of Systems Review of Systems: -unable to ask full ROS due to mental st atus, see above Physical Exam Physical Exam: Gen: A&O 1 appears dyspneic and uncomfortable HEENT: NCAT, EOMI, not icteric. External ears normal. No rhinorrhea. Moist mucous membranes. Neck: Supple, full range of motion, no observable masses, No meningeal sign. Lungs: diffuse rhonchi bilaterally CV: tachycardic, regular rhythm Abdomen: Soft, nondistended, No rebound tenderness. MSK: No joint swelling, no redness. Skin: No rashes, petechiae, lesions. Neuro: Normal Gait, Grossly intact. Results & Data Results & Data Vital Signs (Past 12 Hours) Vital Signs Temp Pulse Resp BP Pulse Ox Pulse Ox O2 Del Method 10/30/25 13:00 114 H 37 H 93 CPAP 10/30/25 12:47 115/87 10/30/25 12:47 115/87 10/30/25 12:47 115/87 10/30/25 12:47 115/87 10/30/25 12:45 120 H 29 H 85 L 10/30/25 12:30 127 H 37 H 93 10/30/25 12:29 115 H 31 H 94 10/30/25 12:21 CPAP 10/30/25 12:00 110 H 19 96 CPAP 10/30/25 11:47 155/78 H 10/30/25 11:47 155/78 H 10/30/25 11:47 155/78 H 10/30/25 11:47 155/78 H 10/30/25 11:47 155/78 H 10/30/25 11:45 111 H 21 94 10/30/25 11:30 121 H 41 H 93 10/30/25 11:18 106 H 24 94 10/30/25 11:17 139/71 10/30/25 11:17 139/71 10/30/25 11:17 139/71 10/30/25 11:17 139/71 10/30/25 11:15 108 H 27 H 94 10/30/25 11:00 104 H 25 H 93 CPAP 10/30/25 11:00 94 10/30/25 10:47 135/72 10/30/25 10:47 135/72 10/30/25 10:47 135/72 10/30/25 10:47 135/72 10/30/25 10:45 107 H 22 93 10/30/25 10:30 106 H 20 94 10/30/25 10:17 151/73 H 10/30/25 10:17 151/73 H 10/30/25 10:17 151/73 H 10/30/25 10:17 151/73 H 10/30/25 10:17 151/73 H 10/30/25 10:15 111 H 19 94 10/30/25 10:00 128 H 27 H 92 10/30/25 09:55 113 H 21 93 10/30/25 09:47 148/89 H 10/30/25 09:47 148/89 H 10/30/25 09:47 148/89 H 10/30/25 09:47 148/89 H 10/30/25 09:47 148/89 H 10/30/25 09:45 113 H 21 90 10/30/25 09:30 117 H 32 H 91 10/30/25 09:19 Aerosol Mask 10/30/25 09:17 156/98 H 10/30/25 09:17 156/98 H 10/30/25 09:17 156/98 H 10/30/25 09:17 156/98 H 10/30/25 09:17 156/98 H 10/30/25 09:15 117 H 20 91 10/30/25 09:00 117 H 32 H 90 10/30/25 08:47 170/78 H 10/30/25 08:47 170/78 H 10/30/25 08:47 170/78 H 10/30/25 08:47 170/78 H 10/30/25 08:47 170/78 H 10/30/25 08:45 127 H 25 H 88 L 10/30/25 08:30 122 H 25 H 89 L 10/30/25 08:17 145/83 H 10/30/25 08:17 145/83 H 10/30/25 08:17 145/83 H 10/30/25 08:17 145/83 H 10/30/25 08:17 145/83 H 10/30/25 08:15 123 H 35 H 86 L 10/30/25 08:00 73 19 91 10/30/25 07:47 145/66 H 10/30/25 07:47 145/66 H 10/30/25 07:47 145/66 H 10/30/25 07:47 145/66 H 10/30/25 07:47 145/66 H 10/30/25 07:45 86 24 90 10/30/25 07:30 38.3 C H 10/30/25 06:17 173/79 H 10/30/25 06:17 173/79 H 10/30/25 06:17 173/79 H 10/30/25 06:17 173/79 H 10/30/25 06:17 173/79 H 10/30/25 06:17 38.3 C H 10/30/25 06:15 85 19 95 10/30/25 06:00 89 29 H 98 10/30/25 05:47 183/82 H 10/30/25 05:47 183/82 H 10/30/25 05:47 183/82 H 10/30/25 05:47 183/82 H 10/30/25 05:47 183/82 H 10/30/25 05:45 63 22 97 10/30/25 05:17 163/73 H 10/30/25 05:17 163/73 H 10/30/25 05:17 163/73 H 10/30/25 05:17 163/73 H 10/30/25 05:17 163/73 H 10/30/25 05:15 57 L 18 97 10/30/25 05:00 57 L 18 97 10/30/25 04:47 155/67 H 10/30/25 04:47 155/67 H 10/30/25 04:47 155/67 H 10/30/25 04:47 155/67 H 10/30/25 04:47 155/67 H 10/30/25 04:45 56 L 22 96 10/30/25 04:40 18 10/30/25 04:17 167/75 H 10/30/25 04:17 167/75 H 10/30/25 04:17 167/75 H 10/30/25 04:17 167/75 H 10/30/25 04:17 167/75 H 10/30/25 04:15 64 18 96 10/30/25 04:00 55 L 18 96 10/30/25 04:00 10/30/25 03:47 168/70 H 10/30/25 03:47 168/70 H 10/30/25 03:47 168/70 H 10/30/25 03:47 168/70 H 10/30/25 03:47 168/70 H 10/30/25 03:45 54 L 18 96 10/30/25 03:17 156/70 H 10/30/25 03:17 156/70 H 10/30/25 03:17 156/70 H 10/30/25 03:17 156/70 H 10/30/25 03:17 156/70 H 10/30/25 03:15 54 L 18 95 10/30/25 03:00 55 L 18 95 10/30/25 02:47 155/68 H 10/30/25 02:47 155/68 H 10/30/25 02:47 155/68 H 10/30/25 02:47 155/68 H O2 Del Method O2 Flow Rate FiO2 10/30/25 13:00 10/30/25 12:47 10/30/25 12:47 10/30/25 12:47 10/30/25 12:47 10/30/25 12:45 10/30/25 12:30 10/30/25 12:29 50 10/30/25 12:21 10/30/25 12:00 50 10/30/25 11:47 10/30/25 11:47 10/30/25 11:47 10/30/25 11:47 10/30/25 11:47 10/30/25 11:45 10/30/25 11:30 10/30/25 11:18 10/30/25 11:17 10/30/25 11:17 10/30/25 11:17 10/30/25 11:17 10/30/25 11:15 10/30/25 11:00 50 10/30/25 11:00 CPAP 10/30/25 10:47 10/30/25 10:47 10/30/25 10:47 10/30/25 10:47 10/30/25 10:45 10/30/25 10:30 10/30/25 10:17 10/30/25 10:17 10/30/25 10:17 10/30/25 10:17 10/30/25 10:17 10/30/25 10:15 10/30/25 10:00 10/30/25 09:55 50 10/30/25 09:47 10/30/25 09:47 10/30/25 09:47 10/30/25 09:47 10/30/25 09:47 10/30/25 09:45 10/30/25 09:30 10/30/25 09:19 10 50 10/30/25 09:17 10/30/25 09:17 10/30/25 09:17 10/30/25 09:17 10/30/25 09:17 10/30/25 09:15 10/30/25 09:00 10/30/25 08:47 10/30/25 08:47 10/30/25 08:47 10/30/25 08:47 10/30/25 08:47 10/30/25 08:45 10/30/25 08:30 10/30/25 08:17 10/30/25 08:17 10/30/25 08:17 10/30/25 08:17 10/30/25 08:17 10/30/25 08:15 10/30/25 08:00 10/30/25 07:47 10/30/25 07:47 10/30/25 07:47 10/30/25 07:47 10/30/25 07:47 10/30/25 07:45 10/30/25 07:30 10/30/25 06:17 10/30/25 06:17 10/30/25 06:17 10/30/25 06:17 10/30/25 06:17 10/30/25 06:17 10/30/25 06:15 10/30/25 06:00 10/30/25 05:47 10/30/25 05:47 10/30/25 05:47 10/30/25 05:47 10/30/25 05:47 10/30/25 05:45 10/30/25 05:17 10/30/25 05:17 10/30/25 05:17 10/30/25 05:17 10/30/25 05:17 10/30/25 05:15 10/30/25 05:00 10/30/25 04:47 10/30/25 04:47 10/30/25 04:47 10/30/25 04:47 10/30/25 04:47 10/30/25 04:45 10/30/25 04:40 40 10/30/25 04:17 10/30/25 04:17 10/30/25 04:17 10/30/25 04:17 10/30/25 04:17 10/30/25 04:15 10/30/25 04:00 10/30/25 04:00 40 10/30/25 03:47 10/30/25 03:47 10/30/25 03:47 10/30/25 03:47 10/30/25 03:47 10/30/25 03:45 10/30/25 03:17 10/30/25 03:17 10/30/25 03:17 10/30/25 03:17 10/30/25 03:17 10/30/25 03:15 10/30/25 03:00 10/30/25 02:47 10/30/25 02:47 10/30/25 02:47 10/30/25 02:47 Laboratory Results -personally reviewed, no leukocytosis, creatinine at baseline, HS troponin downtrending, elevated procal indicative of ongoing infection Medications Administered Aspirin (Aspirin 81 Mg Chew) 81 mg GT [facility] Stop: 11/27/25 09:44 Last Admin: 10/30/25 12:26 Dose: Not Given Documented By: Admin: 10/29/25 08:36 Dose: 81 mg Documented By: Admin: 10/28/25 10:00 Dose: 81 mg Documented By: BETTY Atorvastatin Calcium (Atorvastatin 40 Mg Tab) 80 mg PO [facility] Stop: 11/27/25 08:59 Last Admin: 10/30/25 12:26 Dose: Not Given Documented By: Admin: 10/29/25 08:36 Dose: 80 mg Documented By: Admin: 10/28/25 09:09 Dose: 80 mg Documented By: BETTY [facility]im[facility] ([facility]im[facility] 10 Mg Tab) [facility] [place]: 11/27/25 08:59 Last Admin: 10/30/25 12:26 Dose: Not Given Documented By: Admin: 10/29/25 08:36 Dose: 10 mg Documented By: Admin: 10/28/25 09:09 Dose: 10 mg Documented By: BETTY Enoxaparin Sodium (Enoxaparin Inj 40 Mg/0.4 Ml Syr) 40 [facility] SQ [facility] [place] [place]: 11/28/25 08:59 Last Admin: 10/30/25 09:34 Dose: 40 mg Documented By: Admin: 10/29/25 10:47 Dose: 40 mg Documented By: ANGELA Hydromorphone HCl (Hydromorphone Inj 2 Mg/Ml Syr/Vial) 1 mg IV Q2H PRN PRN Reason: Severe Pain (Scale 7, 8, 9,10) Stop: 11/12/25 04:04 Last Admin: 10/30/25 11:33 Dose: 1 mg Documented By: nate Acetaminophen (Ofirmev) 1,000 mg in 100 mls @ 400 mls/hr IV Q8H PRN PRN Reason: As Needed for Fever or Pain Stop: 10/31/25 10:11 Last Infusion: 10/30/25 07:47 Dose: Infused Documented By: Admin: 10/30/25 07:32 Dose: 400 mls/hr Documented By: nate Infusion: 10/29/25 09:11 Dose: Infused Documented By: Admin: 10/29/25 08:39 Dose: 400 mls/hr Documented By: Infusion: 10/28/25 10:41 Dose: Infused Documented By: Admin: 10/28/25 10:26 Dose: 400 mls/hr Documented By: BETTY Thiamine HCl 300 mg/ Sodium (Chloride) 53 mls @ 210 mls/hr [facility] [place] [place]: 11/02/25 09:14 Last Infusion: 10/30/25 10:34 Dose: Infused Documented By: nate Admin: 10/30/25 09:34 Dose: 210 mls/hr Documented By: Infusion: 10/29/25 09:11 Dose: Infused Documented By: Admin: 10/29/25 08:37 Dose: 210 mls/hr Documented By: ES Phenylephrine HCl (Phenylephrine/Nss) 25 mg in 250 mls @ 20.43 mls/hr IV .[id number] [facility]; Protocol Stop: 11/27/25 20:44 Last Admin: 10/30/25 12:02 Dose: Not Given Documented By: Admin: 10/30/25 12:02 Dose: Not Given Documented By: Admin: 10/29/25 08:36 Dose: Not Given Documented By: Admin: 10/29/25 08:06 Dose: Not Given Documented By: ES Azithromycin 250 mg/ Dextrose 252.5 mls @ 125 mls/hr IV Q24H [facility] Stop: 11/07/25 08:59 Last Infusion: 10/30/25 11:49 Dose: Infused Documented By: dst Infusion: 10/30/25 11:47 Dose: 0 mls/hr Documented By: dst Admin: 10/30/25 11:41 Dose: 125 mls/hr Documented By: nate Pantoprazole Sodium (Protonix) 40 mg in 10 mls @ 5 mls/min IV DAILY [facility] Stop: 11/29/25 09:14 Last Admin: 10/30/25 09:35 Dose: 5 mls/min Documented By: JOSE Dexmedetomidine/Sodium Chloride (Precedex) 200 mcg in 50 mls @ 9.885 mls/hr IV .Q5H4M [facility]; Protocol Stop: 11/03/25 12:59 Last Titration: 10/30/25 13:33 Dose: 0.6 mcg/kg/hr, 9.9 mls/hr Documented By: Titration: 10/30/25 13:14 Dose: 0.5 mcg/kg/hr, 8.2 mls/hr Documented By: Admin: 10/30/25 12:53 Dose: 0.4 mcg/kg/hr, 6.6 mls/hr Documented By: nate Co-signed By: JOSE Insulin Aspart (Insulin Aspart Per Unit Charge) 0 units SC Q6 [facility] Stop: 11/27/25 05:59 Last Admin: 10/30/25 11:43 Dose: Not Given Documented By: dst Admin: 10/30/25 05:50 Dose: Not Given Documented By: Admin: 10/30/25 00:47 Dose: Not Given Documented By: Admin: 10/29/25 16:58 Dose: Not Given Documented By: Admin: 10/29/25 12:05 Dose: Not Given Documented By: Admin: 10/29/25 06:07 Dose: Not Given Documented By: Admin: 10/29/25 00:06 Dose: Not Given Documented By: Admin: 10/28/25 18:15 Dose: 1 units Documented By: RNC Co-signed By: DANYELLE Admin: 10/28/25 12:10 Dose: 5 units Documented By: RNC Co-signed By: AMS Admin: 10/28/25 05:08 Dose: 7 units Documented By: TMG Co-signed By: ALKA Lidocaine (Lidocaine 5% 1 Patch) 1 patch TD QAM [facility] Stop: 11/29/25 09:29 Last Admin: 10/30/25 11:28 Dose: 1 patch Documented By: dst
[2025-10-30] MEDS: HALOPERIDOL LACTATE 5 MG/ML 1 ML VIAL IV STA (14:46)
--- NOTE | 2025-10-30 15:26 | XRay Report ---
XR chest 1V portable HISTORY: 60 years-old Female worsening hypoxia acute hypoxia COMPARISON: Chest radiograph of same day at 8:44 AM TECHNIQUE: AP view the chest FINDINGS: Cardiac silhouette is enlarged. Atherosclerosis of the aorta. No pneumothorax. Probable trace pleural effusions. There are persistent right basilar opacities which have improved from prior. There is pro gressive interstitial and alveolar pulmonary edema. The bones of the chest appear grossly intact. IMPRESSION: 1. Cardiomegaly with progressively worsened pulmonary edema. 3. Trace pleural effusions. 3. Mildly improved right basilar consolidation. ACT 112: Negative or not required by law. The above report was generated using voice recognition software. It may contain grammatical, syntax o r spelling errors. Electronically signed by: Jose Stahl M.D. 10/30/2025 3:25 PM
[2025-10-30 15:32] LABS: Hematocrit (blood only) 35.8 % (37.0-47.0); Hemoglobin 12.2 g/dL (12.0-16.0); Mean Corpuscular Hemoglobin 28.4 pg (25.0-34.0); Mean Corpuscular Volume 83.4 fL (80.0-100.0); Platelet Count 155 K/uL (130-400); RDW Standard Deviation 45.7 fL (36.4-46.3); Red Blood Count 4.29 M/uL (4.20-5.40); White Blood Count 4.74 K/ul (4.8-10.8)
[2025-10-30 15:47] LABS: Anion Gap 10.0 (3-11); Blood Urea Nitrogen 15.0 mg/dl (6-23); Calcium 8.8 mg/dl (8.6-10.3); Carbon Dioxide 29.0 mmol/L (21-32); Chloride 101.0 mmol/L (98-107); Creatinine Clr Calc Pharmacy 57.3 ml/min; Glucose 106.0 mg/dl (70-99(Fasting)); Magnesium 1.8 mg/dl (1.7-2.4); Potassium 3.5 mmol/L (3.5-5.1); Sodium 140.0 mmol/L (136-145)
[2025-10-30] MEDS: PIPERACILLIN/TAZOBACTAM 4.5 GM/100 ML BAG IV SCH (17:03)
[2025-10-30] MEDS: MAGNESIUM SULFATE / D5W 1 GM/100 ML BAG IV SCH (18:09)
[2025-10-30] MEDS: POTASSIUM CHLORIDE / WTR 10 MEQ/100 ML PLCT IV SCH (18:09)
[2025-10-30] MEDS: HYDROmorphone INJ 1 MG/ML SYRINGE IV PRN (21:49)
[2025-10-30] MEDS: REMOVE LIDODERM PATCH SCH (21:51)
[2025-10-30] MEDS: KETOROLAC TROMETHAMINE 15 MG/ML VIAL IV PRN (22:46)
[2025-10-30 23:24] LABS: Chlamydia pneumoniae PCR Not Detected (NotDetected); Coronavirus 229E PCR Not Detected (NotDetected); Coronavirus CoV-2 (COVID19)PCR Not Detected (NotDetected); Coronavirus HKU1 PCR Not Detected (NotDetected); Coronavirus NL63 PCR Not Detected (NotDetected); Coronavirus OC43PCR Not Detected (NotDetected); Human Metapneumovirus PCR Not Detected (NotDetected); Influenza A (H1 2009) PCR DETECTED (NotDetected); Parainfluenza Virus 1 PCR Not Detected (NotDetected); Parainfluenza Virus 2 PCR Not Detected (NotDetected); Parainfluenza Virus 3 PCR Not Detected (NotDetected); Parainfluenza Virus 4 PCR Not Detected (NotDetected); Respiratory Syncytial VirusPCR Not Detected (NotDetected); Rhinovirus/Enterovirus PCR Not Detected (NotDetected)
[2025-10-31] MEDS: PIPERACILLIN/TAZOBACTAM 4.5 GM/100 ML BAG IV SCH (00:03)
[2025-10-31] MEDS: OSELTAMIVIR PHOSPHATE 75 MG CAP PO STA (00:29)
[2025-10-31 05:02] LABS: Hematocrit (blood only) 33.0 % (37.0-47.0); Hemoglobin 11.2 g/dL (12.0-16.0); Mean Corpuscular Hemoglobin 28.3 pg (25.0-34.0); Mean Corpuscular Volume 83.3 fL (80.0-100.0); Platelet Count 141 K/uL (130-400); RDW Standard Deviation 44.7 fL (36.4-46.3); Red Blood Count 3.96 M/uL (4.20-5.40); White Blood Count 6.02 K/ul (4.8-10.8)
[2025-10-31 05:16] LABS: Albumin Level 3.4 gm/dl (3.4-5.0); Anion Gap 8.0 (3-11); Bilirubin,Total 0.8 mg/dl (0.2-1.0); Calcium 9.1 mg/dl (8.6-10.3); Carbon Dioxide 28.0 mmol/L (21-32); Chloride 99.0 mmol/L (98-107); Magnesium 2.5 mg/dl (1.7-2.4); Potassium 3.7 mmol/L (3.5-5.1); Sodium 135.0 mmol/L (136-145)
[2025-10-31 05:22] LABS: Alanine Aminotransferase 24.0 U/L (7-52); Albumin Globulin Ratio 1.0 (0.9-2); Alkaline Phosphatase 86.0 U/L (34-104); Blood Urea Nitrogen 20.0 mg/dl (6-23); Creatinine Clr Calc Pharmacy 56.0 ml/min; Globulin 3.5 gm/dl (2.5-4.0); Glucose 114.0 mg/dl (70-99(Fasting)); Total Protein 6.9 gm/dl (6.0-8.3)
[2025-10-31] MEDS: POTASSIUM CHLORIDE 20 MEQ/15 ML UDC PO STA (06:10)
[2025-10-31] MEDS: OSELTAMIVIR PHOSPHATE 75 MG CAP PO SCH (08:37)
--- NOTE | 2025-10-31 08:43 | XRay Report ---
XR chest 1V portable CLINICAL HISTORY: Follow-up pneumonitis. COMPARISON STUDY: Chest CT July 28, 2023. Chest radiograph October 30, 2025. FINDINGS: Lung volumes are mildly diminished. Moderate cardiomegaly is again noted. There is no pneum othorax. There is a trace right pleural effusion. Extensive bilateral airspace opacities have moderat nitesh progressed since prior exam. Interstitial thickening is also noted. IMPRESSION: 1. Progression of extensive bilateral airspace opacities suggestive of multifocal pneumonia. Pulmonar y edema could appear similar but is considered less likely. Radiographic follow-up is recommended to ensure resolution. 2. Trace right pleural effusion. 3. Cardiomegaly. ACT 112: Negative or not required by law. Electronically signed by: Stephen Sosa M.D. 10/31/2025 8:41 AM
--- NOTE | 2025-10-31 09:02 | Critical Care Progress Note ---
Date of Service October 31, 2025 Assessment & Plan (1) Altered mental status: Plan: MRI brain negative. TSH unremarkable. Patient in significant pain due to lower back pain. Appears alert and oriented today. Holding on restarting home psychiatric medications due to concern of serotonin syndrome upon admission. Can slowly reintroduce these with time. Pain control with Dilaudid as needed, as needed Tylenol, lidocaine patches and K-pad. (2) Anaphylactic reaction: Plan: Edema and anaphylaxis appears to resolved. Will hold on additional Decadron at this time. Will need allergy and immunology follow-up as an outpatient. (3) Difficult airway: Plan: She represents a potential difficult airway given her history of recent edema. (4) Sepsis: Plan: Pro-Robert 10/28/2025 is 5.05. MRSA screen was negative. Pro-Robert downtrended 10/30/2025. Chest x-ray with bilateral infiltrates. Continue azithromycin and Zosyn. Extubated 10/30/2025. Urinalysis unremarkable. Blood cultures pending. Urine Legionella antigen pending. (5) Chest x-ray abnormality: Plan: Patient received Lasix x 2 yesterday with good diuresis. X-ray with progressive infiltrates today on personal review consistent with the patient's influenza pneumonia and probable superimposed bacterial pneumonia. (6) Fever: Plan: Fever likely from influenza pneumonia. (7) Strain of lumbar region: Plan: Multimodal pain control with opioids, Tylenol and NSAIDs. Can try lidocaine patch and K-pad as well. (8) Influenza: Plan: Patient with newly diagnosed influenza A as of her viral panel from 10/30/2025. Continue Tamiflu and supportive care. (9) Hypoxic respiratory failure: Plan: Wean O2 as able. (10) ARDS (adult respiratory distress syndrome): Plan: Patient with intolerance like picture. Low threshold for reintubation if she continues to deteriorate. Plan Continue Lovenox 40 mg subcu for DVT prophylaxis. Continue Protonix for stress ulcer prophylaxis. Advance diet as tolerated. I spent 15 minutes reviewing the electronic medical record/relevant imaging, 25 minutes discussing diagnosis and treatment plan with patient/family, and 15 minutes discussing care plan with ancillary staff such as RT/RN/pharmacist/d ietician/PT/OT/other consulting medical services. CRITICAL CARE TIME I have personally spent 55 minutes of critical care time in the direct management of this patient. This is a life/limb threatening event. This includes time spent evaluating patient, direct bedside care, chart review, placing orders, interpretation of diagnostic studies, discussion with consultants, patient, and family members, as well as other required patient management activities. This time is exclusive of all separately billable procedures, and teaching time and separate from and in addition to any other critical care service time. Admission and Anticipated Discharge Date Admission Date: October 28, 2025 Subjective Patient currently on 15 L oxy mask saturating low 90s and high 80s. She is off sedation. She notes back pain that is a 7 out of 10. She denies any chest pain. She has not had any bowel movement in the last 3 days. She has a poor appetite. She is drinking fluids as able. Repeat respiratory viral panel yesterday revealed influenza A infection. Review of Systems Review of Systems: All systems reviewed & are unremarkable except as noted in HPI & below Physical Exam Physical Exam: Constitutional: Mild distress. Oxy mask in place. Eyes: Pupils are equal round and reactive to light. Conjunctivae are normal. Anicteric sclera. Ears nose, mouth and throat: Mallampati class 2. Normal posterior oropharynx. Uvula is midline. Neck: Trachea is midline. Visual inspection is normal. Respiratory: Tachypneic. Coarse crackles bilaterally. Cardiovascular: Tachycardic. Regular rhythm. No murmurs. No edema. Gastrointestinal: Normal bowel sounds, soft, nontender and nondistended. No hepatosplenomegaly noted. Musculoskeletal: No cyanosis. Patient is able to move all extremities. Skin: No rashes, warm dry and intact. Neurologic: No obvious focal neurological deficits seen. Psychiatric: Alert and oriented x3 with a euthymic affect. Results & Data Results & Data Vital Signs (Past 12 Hours) Vital Signs Temp Pulse Pulse Pulse Resp BP Pulse Ox 10/31/25 06:45 38.0 C H 10/31/25 06:28 148/57 H 10/31/25 06:28 148/57 H 10/31/25 06:28 148/57 H 10/31/25 06:28 148/57 H 10/31/25 06:28 148/57 H 10/31/25 06:27 89 9 L 88 L 10/31/25 06:00 108 H 28 H 65 L 10/31/25 05:00 71 17 92 10/31/25 04:47 103/55 L 10/31/25 04:47 103/55 L 10/31/25 04:47 103/55 L 10/31/25 04:47 103/55 L 10/31/25 04:47 103/55 L 10/31/25 04:45 71 31 H 91 10/31/25 04:00 68 22 90 10/31/25 03:48 67 29 H 88 L 10/31/25 03:40 55 L 26 H 95 10/31/25 03:00 70 17 89 L 10/31/25 02:47 113/65 10/31/25 02:45 71 21 93 10/31/25 02:25 36.4 C L 10/31/25 02:22 104/62 10/31/25 02:21 66 18 92 10/31/25 02:11 92/50 L 10/31/25 02:09 61 14 93 10/31/25 02:00 53 L 21 95 10/31/25 01:54 62 16 89 L 10/31/25 01:52 89/48 L 10/31/25 01:52 89/48 L 10/31/25 01:51 54 L 21 94 10/31/25 01:47 85/48 L 10/31/25 01:45 63 27 H 93 10/31/25 01:14 10/31/25 01:00 56 L 33 H 95 10/31/25 00:47 108/55 L 10/31/25 00:45 58 L 29 H 93 10/31/25 00:26 67 10/31/25 00:24 63 26 H 97 10/31/25 00:00 66 19 86 L 10/30/25 23:47 108/56 L 10/30/25 23:47 108/56 L 10/30/25 23:47 108/56 L 10/30/25 23:47 108/56 L 10/30/25 23:47 108/56 L 10/30/25 23:45 63 23 96 10/30/25 23:00 71 21 94 10/30/25 22:47 119/65 10/30/25 22:47 119/65 10/30/25 22:47 119/65 10/30/25 22:47 119/65 10/30/25 22:47 119/65 10/30/25 22:45 72 29 H 95 10/30/25 22:00 59 L 27 H 93 10/30/25 21:47 103/67 10/30/25 21:47 103/67 10/30/25 21:47 103/67 10/30/25 21:47 103/67 10/30/25 21:47 103/67 10/30/25 21:45 70 22 91 10/30/25 21:45 70 28 H 88 L 10/30/25 21:00 62 34 H 92 O2 Del Method O2 Flow Rate FiO2 10/31/25 06:45 10/31/25 06:28 10/31/25 06:28 10/31/25 06:28 10/31/25 06:28 10/31/25 06:28 10/31/25 06:27 10/31/25 06:00 10/31/25 05:00 10/31/25 04:47 10/31/25 04:47 10/31/25 04:47 10/31/25 04:47 10/31/25 04:47 10/31/25 04:45 10/31/25 04:00 10/31/25 03:48 10/31/25 03:40 Oxymask 15 10/31/25 03:00 10/31/25 02:47 10/31/25 02:45 10/31/25 02:25 10/31/25 02:22 10/31/25 02:21 10/31/25 02:11 10/31/25 02:09 10/31/25 02:00 10/31/25 01:54 10/31/25 01:52 10/31/25 01:52 10/31/25 01:51 10/31/25 01:47 10/31/25 01:45 10/31/25 01:14 Oxymask 15 10/31/25 01:00 10/31/25 00:47 10/31/25 00:45 10/31/25 00:26 10/31/25 00:24 Oxymask 15 10/31/25 00:00 10/30/25 23:47 10/30/25 23:47 10/30/25 23:47 10/30/25 23:47 10/30/25 23:47 10/30/25 23:45 10/30/25 23:00 10/30/25 22:47 10/30/25 22:47 10/30/25 22:47 10/30/25 22:47 10/30/25 22:47 10/30/25 22:45 10/30/25 22:00 10/30/25 21:47 10/30/25 21:47 10/30/25 21:47 10/30/25 21:47 10/30/25 21:47 10/30/25 21:45 10/30/25 21:45 High Flow Nasal Cannula 55 95 10/30/25 21:00 Coding Level of Care Code 81441 CRITICAL CARE 1ST 30-74M Diagnoses Altered mental status R41.82 Anaphylactic reaction T78.2XXA Difficult airway T88.4XXA Sepsis A41.9 Chest x-ray abnormality R93.89 Fever R50.9 Strain of lumbar region S39.012A Encounter type: initial encounter Influenza J11.1 Hypoxic respiratory failure J96.91 ARDS (adult respiratory distress syndrome) J80 (7) Strain of lumbar region Encounter type: initial encounter Qualified Code(s): S39.012A - Strain of muscle, fascia and tendon of lower back, initial encounter
[2025-10-31] MEDS: FUROSEMIDE 40 MG/4 ML VIAL IV ONE (10:43)
[2025-10-31] MEDS: ONDANSETRON INJ 2 MG/ML 2 ML VIAL IV PRN (10:45)
[2025-10-31] MEDS: POTASSIUM CHLORIDE / WTR 10 MEQ/100 ML PLCT IV SCH (10:46)
--- NOTE | 2025-10-31 11:14 | Hospitalist Progress Note ---
Date of Service October 31, 2025 Assessment & Plan (1) Acute anaphylaxis: Plan: CT contrast-induced (2) Acute hypoxic respiratory failure: Plan: Extubated, currently on oxymask (3) ARDS (adult respiratory distress syndrome): (4) Influenza A with pneumonia: (5) Secondary bacterial pneumonia: (6) Acute hyperactive delirium due to another medical condition: (7) Acute metabolic encephalopathy: (8) Severe sepsis with acute organ dysfunction: (9) Myocardial infarction due to demand ischemia: (10) Acute myofascial strain of lumbar region: (11) DMII (diabetes mellitus, type 2): (12) Lumbar compression fracture: (13) PTSD (post-traumatic stress disorder): Plan Patient 60-year-old female with initially severe anaphylactic reaction and respiratory failure due to IV contrast dye requiring intubation and mechanical ventilation. Patient now subsequently with influenza pneumonia and suspected secondary bacterial pneumonia. Continue Tamiflu and antibiotics Continue respiratory support Patient's acute delirium and metabolic encephalopathy seems to have improved here this morning. Will continue to monitor and treat as needed. Anticipate as she continues to recover this will continue to clear Continue other supportive measures Patient's back pain seems significant beyond imaging findings. Currently using IV Dilaudid. Is able to take other pills. Consider trial of oral pain medication. Continue other modalities for pain control Therapies when respiratory status is improved At this time low suspicion for serotonin syndrome. Can consider restarting psych meds as her encephalopathy continues to clear Admission and Anticipated Discharge Date Admission Date: October 28, 2025 Subjective Patient seems a bit more alert and interactive this morning. Nurse reports was a little bit delirious overnight. Requiring lots of opioid pain medicine to manage her back pain. Patient cannot relate history of her travel and when she injured her back Physical Exam Physical Exam: Constitutional: Alert, moderate distress, tachypneic HEENT: Mucous membranes moist. On oxy mask Lungs: Decreased breath sounds, coarse rhonchi, crackles lower lobes, tachypnea CV: S1-S2, regular, tachycardic Abdomen: Soft, nontender, nondistended Extremities: No significant edema Neuro: Generally weak, nonfocal, oriented Psych: Cooperative, normal mood Results & Data Results & Data Vital Signs (Past 12 Hours) Vital Signs Temp Pulse Pulse Resp BP Pulse Ox O2 Del Method 10/31/25 09:19 Oxymask 10/31/25 09:00 114 H 30 H 92 10/31/25 08:47 166/74 H 10/31/25 08:47 166/74 H 10/31/25 08:47 166/74 H 10/31/25 08:47 166/74 H 10/31/25 08:47 166/74 H 10/31/25 08:45 106 H 51 H 90 10/31/25 08:17 37.6 C H 10/31/25 08:00 98 H 35 H 90 10/31/25 07:47 149/74 H 10/31/25 07:47 149/74 H 10/31/25 07:47 149/74 H 10/31/25 07:47 149/74 H 10/31/25 07:47 149/74 H 10/31/25 07:45 101 H 46 H 91 Oxymask 10/31/25 07:00 98 H 36 H 91 10/31/25 06:45 38.0 C H 10/31/25 06:28 148/57 H 10/31/25 06:28 148/57 H 10/31/25 06:28 148/57 H 10/31/25 06:28 148/57 H 10/31/25 06:28 148/57 H 10/31/25 06:27 89 9 L 88 L 10/31/25 06:00 108 H 28 H 65 L 10/31/25 05:00 71 17 92 10/31/25 04:47 103/55 L 10/31/25 04:47 103/55 L 10/31/25 04:47 103/55 L 10/31/25 04:47 103/55 L 10/31/25 04:47 103/55 L 10/31/25 04:45 71 31 H 91 10/31/25 04:00 68 22 90 10/31/25 03:48 67 29 H 88 L 10/31/25 03:40 55 L 26 H 95 Oxymask 10/31/25 03:00 70 17 89 L 10/31/25 02:47 113/65 10/31/25 02:45 71 21 93 10/31/25 02:25 36.4 C L 10/31/25 02:22 104/62 10/31/25 02:21 66 18 92 10/31/25 02:11 92/50 L 10/31/25 02:09 61 14 93 10/31/25 02:00 53 L 21 95 10/31/25 01:54 62 16 89 L 10/31/25 01:52 89/48 L 10/31/25 01:52 89/48 L 10/31/25 01:51 54 L 21 94 10/31/25 01:47 85/48 L 10/31/25 01:45 63 27 H 93 10/31/25 01:14 Oxymask 10/31/25 01:00 56 L 33 H 95 10/31/25 00:47 108/55 L 10/31/25 00:45 58 L 29 H 93 10/31/25 00:26 67 10/31/25 00:24 63 26 H 97 Oxymask 10/31/25 00:00 66 19 86 L 10/30/25 23:47 108/56 L 10/30/25 23:47 108/56 L 10/30/25 23:47 108/56 L 10/30/25 23:47 108/56 L 10/30/25 23:47 108/56 L 10/30/25 23:45 63 23 96 10/30/25 23:00 71 21 94 O2 Flow Rate 10/31/25 09:19 15 10/31/25 09:00 10/31/25 08:47 10/31/25 08:47 10/31/25 08:47 10/31/25 08:47 10/31/25 08:47 10/31/25 08:45 10/31/25 08:17 10/31/25 08:00 10/31/25 07:47 10/31/25 07:47 10/31/25 07:47 10/31/25 07:47 10/31/25 07:47 10/31/25 07:45 15 10/31/25 07:00 10/31/25 06:45 10/31/25 06:28 10/31/25 06:28 10/31/25 06:28 10/31/25 06:28 10/31/25 06:28 10/31/25 06:27 10/31/25 06:00 10/31/25 05:00 10/31/25 04:47 10/31/25 04:47 10/31/25 04:47 10/31/25 04:47 10/31/25 04:47 10/31/25 04:45 10/31/25 04:00 10/31/25 03:48 10/31/25 03:40 15 10/31/25 03:00 10/31/25 02:47 10/31/25 02:45 10/31/25 02:25 10/31/25 02:22 10/31/25 02:21 10/31/25 02:11 10/31/25 02:09 10/31/25 02:00 10/31/25 01:54 10/31/25 01:52 10/31/25 01:52 10/31/25 01:51 10/31/25 01:47 10/31/25 01:45 10/31/25 01:14 15 10/31/25 01:00 10/31/25 00:47 10/31/25 00:45 10/31/25 00:26 10/31/25 00:24 15 10/31/25 00:00 10/30/25 23:47 10/30/25 23:47 10/30/25 23:47 10/30/25 23:47 10/30/25 23:47 10/30/25 23:45 10/30/25 23:00 Diagnostic Findings Reviewed imaging, laboratory and diagnostic studies. Pertinent findings as below. WBC 6.0 Hemoglobin 11.2 ESR 50 Electrolytes stable Creatinine 0.86 C-reactive protein 16.6 Troponins reviewed Flu swab positive for influenza A Personally reviewed chest x-ray from today: Bilateral lower lobe infiltrates right greater than left Personally reviewed EKG from 10/30/2025, sinus tachycardia, no acute ST-T wave changes
[2025-10-31] MEDS: INSULIN ASPART PER UNIT CHARGE SC SCH (17:38)
[2025-10-31] MEDS: ACETAMINOPHEN 1,000 MG/100 ML VIAL IV PRN (19:35)
[2025-10-31] MEDS: OSELTAMIVIR PHOSPHATE 30 MG CAP PO SCH (19:49)
[2025-11-01 04:14] LABS: Hematocrit (blood only) 37.0 % (37.0-47.0); Hemoglobin 12.5 g/dL (12.0-16.0); Mean Corpuscular Hemoglobin 28.2 pg (25.0-34.0); Mean Corpuscular Volume 83.3 fL (80.0-100.0); Platelet Count 172 K/uL (130-400); RDW Standard Deviation 44.3 fL (36.4-46.3); Red Blood Count 4.44 M/uL (4.20-5.40); White Blood Count 9.65 K/ul (4.8-10.8)
[2025-11-01 04:30] LABS: Alanine Aminotransferase 24.0 U/L (7-52); Albumin Globulin Ratio 0.9 (0.9-2); Albumin Level 3.4 gm/dl (3.4-5.0); Alkaline Phosphatase 99.0 U/L (34-104); Anion Gap 12.0 (3-11); Bilirubin,Total 0.9 mg/dl (0.2-1.0); Blood Urea Nitrogen 21.0 mg/dl (6-23); Calcium 9.1 mg/dl (8.6-10.3); Carbon Dioxide 28.0 mmol/L (21-32); Chloride 97.0 mmol/L (98-107); Creatinine Clr Calc Pharmacy 57.0 ml/min; Globulin 3.9 gm/dl (2.5-4.0); Glucose 116.0 mg/dl (70-99(Fasting)); Magnesium 2.4 mg/dl (1.7-2.4); Potassium 3.5 mmol/L (3.5-5.1); Sodium 137.0 mmol/L (136-145); Total Protein 7.3 gm/dl (6.0-8.3)
[2025-11-01] MEDS: POTASSIUM CHLORIDE 20 MEQ/15 ML UDC PO STA (05:41)
[2025-11-01] MEDS: POTASSIUM CHLORIDE / WTR 10 MEQ/100 ML PLCT IV SCH (05:42)
--- NOTE | 2025-11-01 08:36 | Electrocardiogram Report ---
Test Reason : Blood Pressure : */* mmHG Vent. Rate : 88 BPM Atrial Rate : 88 BPM P-R Int : 150 ms QRS Dur : 90 ms QT Int : 372 ms P-R-T Axes : 32 1 20 degrees QTcB Int : 450 ms Normal sinus rhythm Low voltage QRS Inferior infarct (cited on or before 28-Oct-2025) Cannot rule out Anterior infarct (cited on or before 28-Oct-2025) Abnormal ECG When compared with ECG of 28-Oct-2025 06:08, Questionable change in initial forces of Lateral leads Nonspecific T wave abnormality now evident in Anterior leads Confirmed by Mary Montana (Manuela) on 11/01/2025 8:36:00 AM Referred By: REFERRED SELF Confirmed By: Mary Montana
[2025-11-01] MEDS ORDERED: HYDROmorphone INJ 1 MG/ML SYRINGE IV PRN (08:58)
--- NOTE | 2025-11-01 09:01 | Critical Care Progress Note ---
Date of Service November 01, 2025 Assessment & Plan (1) Acute anaphylaxis: Plan: CT contrast-induced (2) Acute hypoxic respiratory failure: Plan: Extubated, currently on oxymask (3) ARDS (adult respiratory distress syndrome): (4) Influenza A with pneumonia: (5) Secondary bacterial pneumonia: (6) Acute hyperactive delirium due to another medical condition: (7) Acute metabolic encephalopathy: (8) Severe sepsis with acute organ dysfunction: (9) Myocardial infarction due to demand ischemia: (10) Acute myofascial strain of lumbar region: (11) DMII (diabetes mellitus, type 2): (12) Lumbar compression fracture: Plan Neuro Patient is considerably more alert this morning. We will restart her Buspar 5mg TID today. Hold off on quetiapine until legionella results are back. Will focus on transitioning patient to oral pain medications - oral Oxycodone for moderate pain + IV Dilaudid for severe pain as needed. Cardiovascular High troponin levels likely due to demand ischemia, continue statin and ASA medication. We will restart her BP medications today, metoprolol and losartan. Lipid panel outpatient with PCP to further manage care. Respiratory Will work on weaning down on her oxygen requirements. XR today indicative of some improvement, but still shows likely multifocal pneumonia. Continue Tamiflu and supportive care for influenza. Start incentive spirometry. Work on getting patient out of bed and sitting in chair. Continue Zosyn 7 day course. GI No BM produced during this admission. KUB XR today showed moderate colonic fecal retention, nonobstructive bowel gas pattern. Work on producing bowel movement - started Senokot today. Patient has history of IBS and is on Linzess, restart home medication today. Stop Toradol pain medication, caustic to GI tract. Continue IV Protonix prophylaxis. MSK Continues to have lumbar back pain. Continue pain management as above. PT/OT and speech therapy evaluation and treatment. Renal Goal K>4, Mg>2. Replete as needed. Lasix 20mg IV given this morning. Continue to monitor vitals and fluid status. Infectious Disease Continue Tamiflu and supportive care. Continue Zosyn 7 day course. Preliminary cultures negative. Endocrine Glucose levels controlled. Last A1C 6.5. Continue management outpatient post discharge. Admission and Anticipated Discharge Date Admission Date: October 28, 2025 Supervising Physician Co-Signing Physician Notes Patient separately seen and examined from the resident physician. Agree with the note as above unless otherwise specified. Patient with significantly improved respiratory status and mental status. Will continue to wean O2 as able. Out of bed to chair today. Advance diet as tolerated. PT OT and speech therapy consulted. Reinstitute home psychiatric medications slowly. Will increase Tamiflu dosing to full dosing given severity of pneumonia and borderline creatinine. Continue Zosyn for total 7 days. Will diurese with an additional dose of 20 mg of IV Lasix and follow urine output. On exam she is much more alert and awake. She has bilateral crackles. Patient can downgrade out of ICU today. Transfer orders will be placed. Subjective Patient states she is feeling better today in comparison to yesterday. Continues to have some SOB. Feeling slightly anxious regarding her oxygen levels. Her back pain has not improved, at same pain level as yesterday. She has some nausea and had a vomiting episode 20 minutes before I entered room this morning. She is apprehensive to start liquid diet, and mainly has been drinking water. Patient has also not had a BM in last 4 days. Denies abdominal pain. Denies CP, LH, palpitations. Review of Systems Review of Systems: All systems reviewed & are unremarkable except as noted in HPI & below Physical Exam Constitutional: + ill appearing; no acute distress Respiratory: normal respiratory effort Auscultation: + rhonchi (b/l) Cardiovascular: RRR, no murmur, no edema Gastrointestinal (Abdomen): normal bowel sounds, soft, nontender, no hepatosplenomegaly Skin: no rashes, warm and dry Psychiatric: A+Ox3, euthymic affect Results & Data Results & Data Vital Signs (Past 12 Hours) Vital Signs Temp Pulse Resp BP Pulse Ox FiO2 11/01/25 07:00 87 28 H 93 11/01/25 06:47 157/85 H 11/01/25 06:45 89 33 H 93 11/01/25 06:00 96 H 23 92 11/01/25 05:47 143/81 H 11/01/25 05:45 94 H 43 H 94 11/01/25 05:00 84 23 95 11/01/25 04:47 140/72 11/01/25 04:45 94 H 23 93 11/01/25 04:00 100 H 38 H 95 11/01/25 03:52 36.4 C L 11/01/25 03:47 124/65 11/01/25 03:47 124/65 11/01/25 03:47 124/65 11/01/25 03:47 124/65 11/01/25 03:47 124/65 11/01/25 03:45 91 H 23 90 11/01/25 03:00 115 H 28 H 90 11/01/25 02:47 129/72 11/01/25 02:47 129/72 11/01/25 02:47 129/72 11/01/25 02:47 129/72 11/01/25 02:47 129/72 11/01/25 02:45 95 H 28 H 91 11/01/25 02:00 89 18 94 11/01/25 01:47 123/63 11/01/25 01:47 123/63 11/01/25 01:47 123/63 11/01/25 01:47 123/63 11/01/25 01:47 123/63 11/01/25 01:45 90 20 95 11/01/25 01:00 93 H 18 94 11/01/25 00:47 91/58 L 11/01/25 00:47 91/58 L 11/01/25 00:47 91/58 L 11/01/25 00:47 91/58 L 11/01/25 00:47 91/58 L 11/01/25 00:45 92 H 17 94 11/01/25 00:08 91 H 20 96 65 11/01/25 00:00 89 23 10/31/25 23:47 137/76 10/31/25 23:47 137/76 10/31/25 23:47 137/76 10/31/25 23:47 137/76 10/31/25 23:47 137/76 10/31/25 23:45 88 24 94 10/31/25 23:00 89 31 H 93 10/31/25 22:47 106/59 L 10/31/25 22:47 106/59 L 10/31/25 22:47 106/59 L 10/31/25 22:47 106/59 L 10/31/25 22:47 106/59 L 10/31/25 22:45 88 30 H 91 10/31/25 22:00 92 H 32 H 90 10/31/25 21:47 10/31/25 21:47 10/31/25 21:47 10/31/25 21:47 10/31/25 21:47 10/31/25 21:45 91 H 35 H 92 10/31/25 21:09 36.4 C L Resident Activity Tracking Resident Involvement: Resident Care Provided Care Provided: Adult [facility] Medicine
--- NOTE | 2025-11-01 09:06 | XRay Report ---
KUB HISTORY: Acute generalized abdominal pain with constipation constipation COMPARISON: CT abdomen and pelvis 10/28/2025 FINDINGS: Cholecystectomy. Nonobstructive bowel gas pattern. Left lateral abdomen is partially exclud ed from the [id number]. Moderate colonic fecal retention. No renal calculi. No ureteral calculi. N o pneumoperitoneum or pneumatosis. Mild lumbar levoscoliosis. Chronic lumbar compression deformities with kyphoplasty at L2. IMPRESSION: 1. Nonobstructive bowel gas pattern. 2. Moderate colonic fecal retention. 3. Cholecystectomy. ACT 112: Negative or not required by law. The above report was generated using voice recognition software. It may contain grammatical, syntax o r spelling errors. Electronically signed by: Jose Stahl M.D. 11/01/2025 9:05 AM
--- NOTE | 2025-11-01 09:34 | XRay Report ---
XR chest 1V portable CLINICAL HISTORY: ARDS, flu, sob COMPARISON STUDY: Chest radiograph October 31, 2025. FINDINGS: There is no pneumothorax or pleural effusion. Cardiomegaly is unchanged. Interstitial thick ening and extensive bilateral airspace opacities are again noted. The airspace opacities have slightl y improved. IMPRESSION: Extensive bilateral airspace opacities with interstitial thickening. Minimal improvement since prior exam. The findings favor multifocal pneumonia. Pulmonary edema is considered less likely . ACT 112: Negative or not required by law. Electronically signed by: Stephen Sosa M.D. 11/01/2025 9:33 AM
[2025-11-01] MEDS ORDERED: BENZONATATE 100 MG CAPSULE PO PRN (09:40)
[2025-11-01] MEDS: LOSARTAN POTASSIUM 25 MG TAB PO SCH (09:43)
[2025-11-01] MEDS: METOPROLOL SUCC 25MG EXT REL TAB PO SCH (09:43)
[2025-11-01] MEDS: busPIRone 5 MG TAB PO SCH (09:44)
[2025-11-01] MEDS: LINACLOTIDE 145 MCG CAPSULE PO SCH (09:44)
[2025-11-01] MEDS: OSELTAMIVIR PHOSPHATE 75 MG CAP PO SCH (09:52)
--- NOTE | 2025-11-01 10:14 | Billing Data ---
Date of Service November 01, 2025 I personally spent 50 minutes on the date of service in activities related to this patient's encounter, including 30 minutes of counseling with patient regarding treatment plan and 20 minutes of clinical review of lab results and documentation. I did insurance counselor the patient regarding their diagnosis and treatment plan and they expressed understanding. This note was dictated using voice recognition software and may include grammatical errors, extra words, word substitutions and other inaccuracies due to errors in the voice recognition software and differences in speech patterns. Coding Level of Care Code 94724 SUB INP/OBS CARE 3/50MIN
--- NOTE | 2025-11-01 10:36 | Electrocardiogram Report ---
Test Reason : Blood Pressure : */* mmHG Vent. Rate : 50 BPM Atrial Rate : 50 BPM P-R Int : 168 ms QRS Dur : 92 ms QT Int : 470 ms P-R-T Axes : 6 23 26 degrees QTcB Int : 428 ms Sinus bradycardia Low voltage QRS Borderline ECG When compared with ECG of 28-Oct-2025 13:25, (unconfirmed) Vent. rate has decreased by 38 bpm Minimal criteria for Anterior infarct are no longer Present Confirmed by Neel Adams ([id number]) on 11/01/2025 10:36:17 AM Referred By: REFERRED SELF Confirmed By: Neel Adams
--- NOTE | 2025-11-01 10:40 | Electrocardiogram Report ---
Test Reason : Blood Pressure : */* mmHG Vent. Rate : 118 BPM Atrial Rate : 118 BPM P-R Int : 138 ms QRS Dur : 88 ms QT Int : 320 ms P-R-T Axes : 55 16 24 degrees QTcB Int : 448 ms Sinus tachycardia Low voltage QRS Possible Inferior infarct , age undetermined Abnormal ECG When compared with ECG of 29-Oct-2025 14:25, (unconfirmed) Vent. rate has increased by 68 bpm Confirmed by Neel Adams ([id number]) on 11/01/2025 10:40:20 AM Referred By: REFERRED SELF Confirmed By: Neel Adams
--- NOTE | 2025-11-01 11:18 | Hospitalist Progress Note ---
Date of Service November 01, 2025 Assessment & Plan (1) Acute anaphylaxis: Plan: CT contrast-induced (2) Acute hypoxic respiratory failure: Plan: Extubated, currently on oxymask (3) ARDS (adult respiratory distress syndrome): (4) Influenza A with pneumonia: (5) Secondary bacterial pneumonia: (6) Acute hyperactive delirium due to another medical condition: (7) Acute metabolic encephalopathy: (8) Severe sepsis with acute organ dysfunction: (9) Myocardial infarction due to demand ischemia: (10) Acute myofascial strain of lumbar region: (11) DMII (diabetes mellitus, type 2): (12) Lumbar compression fracture: (13) PTSD (post-traumatic stress disorder): Plan Patient 60-year-old female with ongoing respiratory failure in the setting of acute anaphylaxis from IV contrast and subsequent influenza pneumonia and suspected secondary bacterial pneumonia. 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 Patient on good interventions, now it is time to let all those interventions continue to be effective and the patient to recover. Encourage oral intake as able Therapies Admission and Anticipated Discharge Date Admission Date: October 28, 2025 Subjective Patient alert and interactive this morning. Nurse reports she did have some hallucinations throughout the night but less than the previous night. Patient was on CPAP for couple hours intermittently throughout the day yesterday and overnight. Physical Exam Physical Exam: Constitutional: Alert, moderate distress HEENT: Mucous membranes moist. Oxy mask Lungs: Decreased breath sounds, coarse rhonchi and crackles throughout CV: S1-S2, regular Abdomen: Soft, nontender, nondistended Extremities: No significant edema Neuro: No focal deficits, generally weak, some intermittent confusion Psych: Cooperative Results & Data Results & Data Vital Signs (Past 12 Hours) Vital Signs Temp Pulse Resp BP Pulse Ox FiO2 11/01/25 09:13 143/74 H 11/01/25 09:12 83 25 H 93 11/01/25 09:00 82 29 H 94 11/01/25 08:47 159/76 H 11/01/25 08:47 159/76 H 11/01/25 08:45 82 25 H 94 11/01/25 08:00 88 25 H 93 11/01/25 07:47 161/82 H 11/01/25 07:45 84 35 H 94 11/01/25 07:00 87 28 H 93 11/01/25 06:47 157/85 H 11/01/25 06:45 89 33 H 93 11/01/25 06:00 96 H 23 92 11/01/25 05:47 143/81 H 11/01/25 05:45 94 H 43 H 94 11/01/25 05:00 84 23 95 11/01/25 04:47 140/72 11/01/25 04:45 94 H 23 93 11/01/25 04:00 100 H 38 H 95 11/01/25 03:52 36.4 C L 11/01/25 03:47 124/65 11/01/25 03:47 124/65 11/01/25 03:47 124/65 11/01/25 03:47 124/65 11/01/25 03:47 124/65 11/01/25 03:45 91 H 23 90 11/01/25 03:00 115 H 28 H 90 11/01/25 02:47 129/72 11/01/25 02:47 129/72 11/01/25 02:47 129/72 11/01/25 02:47 129/72 11/01/25 02:47 129/72 11/01/25 02:45 95 H 28 H 91 11/01/25 02:00 89 18 94 11/01/25 01:47 123/63 11/01/25 01:47 123/63 11/01/25 01:47 123/63 11/01/25 01:47 123/63 11/01/25 01:47 123/63 11/01/25 01:45 90 20 95 11/01/25 01:00 93 H 18 94 11/01/25 00:47 91/58 L 11/01/25 00:47 91/58 L 11/01/25 00:47 91/58 L 11/01/25 00:47 91/58 L 11/01/25 00:47 91/58 L 11/01/25 00:45 92 H 17 94 11/01/25 00:08 91 H 20 96 65 11/01/25 00:00 89 23 10/31/25 23:47 137/76 10/31/25 23:47 137/76 10/31/25 23:47 137/76 10/31/25 23:47 137/76 10/31/25 23:47 137/10/31/25 23:45 88 24 94 Diagnostic Findings Reviewed imaging, laboratory and diagnostic studies. Pertinent findings as below. CBC stable Electrolytes stable Creatinine 0.83 Chest x-ray reviewed: Persistent bilateral infiltrates KUB reviewed, no definitive obstruction, significant mount of stool noted
[2025-11-01] MEDS: HYDROmorphone INJ 1 MG/ML SYRINGE IV PRN (12:37)
[2025-11-01] MEDS: FUROSEMIDE INJ 20 MG/2 ML VIAL IV ONE ×2 (12:40→15:27)
[2025-11-01] MEDS: BENZONATATE 100 MG CAPSULE PO SCH (15:32)
[2025-11-01 15:41] LABS: Anion Gap 11.0 (3-11); Blood Urea Nitrogen 22.0 mg/dl (6-23); Calcium 9.0 mg/dl (8.6-10.3); Carbon Dioxide 27.0 mmol/L (21-32); Chloride 97.0 mmol/L (98-107); Creatinine Clr Calc Pharmacy 70.6 ml/min; Glucose 154.0 mg/dl (70-99(Fasting)); Magnesium 2.1 mg/dl (1.7-2.4); Potassium 3.6 mmol/L (3.5-5.1); Sodium 135.0 mmol/L (136-145)
[2025-11-01] MEDS: ACETAMINOPHEN 500 MG TAB PO SCH (15:56)
[2025-11-01] MEDS: DOCUSATE SODIUM/SENNA 50/8.6MG TAB PO SCH (16:00)
[2025-11-01] MEDS: ALBUT/IPRATROP 3MG/0.5MG NEB 3 ML VIAL NEB SCH (20:12)
[2025-11-02] MEDS: PROMETHAZINE 6.25 MG/50.25 ML BAG IV ONE (01:06)
[2025-11-02 05:22] LABS: Hematocrit (blood only) 36.3 % (37.0-47.0); Hemoglobin 12.0 g/dL (12.0-16.0); Mean Corpuscular Hemoglobin 27.6 pg (25.0-34.0); Mean Corpuscular Volume 83.4 fL (80.0-100.0); Platelet Count 214 K/uL (130-400); RDW Standard Deviation 44.9 fL (36.4-46.3); Red Blood Count 4.35 M/uL (4.20-5.40); White Blood Count 8.11 K/ul (4.8-10.8)
[2025-11-02 05:35] LABS: Albumin Level 3.6 gm/dl (3.4-5.0); Anion Gap 12.0 (3-11); Bilirubin,Total 0.7 mg/dl (0.2-1.0); Calcium 9.0 mg/dl (8.6-10.3); Carbon Dioxide 26.0 mmol/L (21-32); Chloride 99.0 mmol/L (98-107); Magnesium 2.1 mg/dl (1.7-2.4); Potassium 3.5 mmol/L (3.5-5.1); Sodium 137.0 mmol/L (136-145)
[2025-11-02 05:41] LABS: Alanine Aminotransferase 20.0 U/L (7-52); Albumin Globulin Ratio 0.9 (0.9-2); Alkaline Phosphatase 96.0 U/L (34-104); Blood Urea Nitrogen 23.0 mg/dl (6-23); Creatinine Clr Calc Pharmacy 73.8 ml/min; Globulin 3.8 gm/dl (2.5-4.0); Glucose 159.0 mg/dl (70-99(Fasting)); Total Protein 7.4 gm/dl (6.0-8.3)
[2025-11-02] MEDS: DOCUSATE SODIUM/SENNA 50/8.6MG TAB PO SCH (08:11)
[2025-11-02] MEDS: POTASSIUM CHLORIDE CRTAB 20 MEQ TABCR PO STA (08:12)
[2025-11-02] MEDS: POLYETHYLENE (MIRALAX) 17 GM PACK PO SCH (08:13)
--- NOTE | 2025-11-02 12:10 | Pharmacy Report ---
Pharmacy Glycemic Short Note 2 - Date of Service November 02, 2025 - Glycemic Short BSG Results (Last 24 hours): 11/01/25 11/01/25 11/01/25 13:18 14:56 20:38 Glucose 154 H POC Glucose 171 H 173 H 11/02/25 11/02/25 11/02/25 04:19 07:09 11:44 Glucose 159 H POC Glucose 159 H 142 H OUTPATIENT ANTIDIABETIC REGIMEN: * None anti-diabetic medications * A1c 6.5% 10/28/25 ASSESSMENT: 11/02: * Patient has not received much insulin in the past couple of days * Received one unit today with breakfast for carb coverage and glucose stable * Patient has T2DM diet but still not eating too much - only 25% of breakfast charted as eaten this AM, did not have lunch or dinner charted yesterday just an HS snack * Blood glucose has ranged 110-173 in past couple of days which is within goal range of < 180 * Continue current regimen for now and monitor BSGs in regard to PO intake 10/30: * Patient did not receive any insulin yesterday and so far today * BSGs have ranged 114-157, within range * No more steroids per pulmonary * Patient extubated today, still NPO for now * Given that there will be no more steroids and patient is NPO, will utilize stress level 2 insulin sliding scale (CF 35, CR 12) * Hold off on further basal insulin for now - watch BSGs trend when/if patient gets diet and can reassess need for basal insulin 10/29: * Patient received a total of 33 units of insulin yesterday (20 units of basal, and 13 units of bolus) * BSGs came down from 319 to 150s this AM * AM glucose still a little bit high * One dose of dexamethasone 6mg planned for this evening at 1800 * Patient is NPO and will likely be NPO at least until tomorrow * Given downtrend of blood glucose values and unknown duration of NPO status, will loosen the insulin aspart slightly to CF 20, CR 8 * Lantus scale this evening depending on how BSGs trend 10/28: * 60 yo F in ICU receiving treatment for presumed anaphylactic shock from IV contrast. Patient received Dexamethasone 10mg + Solu-Medrol early this morning, on pressors and mechanical ventilation. Blood sugars elevated this morning at 319mg/dl - improved with 7 units of NovoLog to 250mg/dl. * Tighten NovoLog and add basal at this time. PLAN FOR INPATIENT GLYCEMIC CONTROL: * Basal insulin * NONE * Bolus insulin * NovoLog per scale ACHS or Q6hrs while NPO * Goal Range: Low 140 mg/dL - High 180 mg/dL * Correction Factor: 35 mg/dL/unit * Nutritional / Prandial insulin per carb ratio of 1 unit per 15 grams CHO consumed
--- NOTE | 2025-11-02 13:01 | Hospitalist Progress Note ---
Date of Service November 02, 2025 Assessment & Plan (1) Acute anaphylaxis: Plan: CT contrast-induced (2) Acute hypoxic respiratory failure: Plan: Extubated, currently on oxymask (3) ARDS (adult respiratory distress syndrome): (4) Influenza A with pneumonia: (5) Secondary bacterial pneumonia: (6) Acute hyperactive delirium due to another medical condition: (7) Acute metabolic encephalopathy: (8) Severe sepsis with acute organ dysfunction: (9) Myocardial infarction due to demand ischemia: (10) Acute myofascial strain of lumbar region: (11) DMII (diabetes mellitus, type 2): (12) Lumbar compression fracture: (13) PTSD (post-traumatic stress disorder): Plan Patient 60-year-old female initially presented to the emergency room with acute severe back pain from lumbar strain sprain, subsequently had acute anaphylaxis and respiratory failure due to presumed CT IV contrast dye allergy. Patient was intubated and treated for acute anaphylaxis. This is subsequently resolved. Patient was extubated to high flow oxygen. Subsequently now has influenza pneumonia and suspected secondary bacterial pneumonia. Patient has significant metabolic encephalopathy associated with this which is steadily improving and clearing. Respiratory status is slowly improving and oxygen requirements are decreasing on a daily basis. Continue full course of Tamiflu Continue antibiotics for presumed secondary bacterial pneumonia Transition to oral pain medications Discontinue Allred catheter Bowel regimen Trial of trazodone for her insomnia at bedtime Therapies for mobilization and her acute lumbar strain sprain. Anticipate patient continuing to require less oxygen as she continues to improve. Anticipate discharge home in the next 2 to 3 days if off oxygen. Admission and Anticipated Discharge Date Admission Date: October 28, 2025 Subjective Patient steadily improving each day. States that she did not sleep well, however no more hallucinations. Mentation is getting clearer each day. Patient has chronic issues with insomnia at home even prior to admission. Patient also states that she has chronic issues with IBS constipation Physical Exam Physical Exam: Constitutional: Alert, nontoxic significantly less respiratory distress HEENT: Mucous membranes moist. On high flow nasal cannula, improved from oxy mask Lungs: Decreased breath sounds, crackles throughout, few rhonchi that clear with cough CV: S1-S2, regular Abdomen: Soft, nontender, nondistended Extremities: No significant edema Neuro: No focal deficits, generally weak, oriented Psych: Cooperative, normal mood Results & Data Results & Data Vital Signs (Past 12 Hours) Vital Signs Temp Pulse Pulse Pulse Resp BP BP 11/02/25 11:14 75 11/02/25 11:05 11/02/25 11:00 36.7 C 78 18 154/80 H 11/02/25 11:00 11/02/25 08:00 85 24 173/80 H 11/02/25 08:00 11/02/25 07:00 77 24 11/02/25 03:54 36.7 C 85 38 H 143/69 H 11/02/25 01:12 88 26 H Pulse Ox Pulse Ox O2 Del Method O2 Del Method O2 Flow Rate O2 Flow Rate FiO2 11/02/25 11:14 11/02/25 11:05 Nasal Cannula 6 11/02/25 11:00 90 Nasal Cannula 6 11/02/25 11:00 90 Nasal Cannula 6 11/02/25 08:00 91 Nasal Cannula 6 11/02/25 08:00 Nasal Cannula 6 11/02/25 07:00 93 11/02/25 03:54 93 Oxymask 11 11/02/25 01:12 90 High Flow Nasal Cannula 40 85 Diagnostic Findings Reviewed imaging, laboratory and diagnostic studies. Pertinent findings as below. WBCs 8.1 Hemoglobin 12.0 Electrolytes stable Creatinine 0.63 Glucoses reviewed
[2025-11-02] MEDS: ACETAMINOPHEN 500 MG TAB PO SCH (15:28)
[2025-11-02] MEDS: AMOXICILLIN/CLAVULANATE 875 MG TAB PO SCH (17:48)
[2025-11-03] MEDS: HYDROCODONE/ACETAMOPHEN 5/325MG TAB PO PRN (00:17)
[2025-11-03 07:58] LABS: Anion Gap 12.0 (3-11); Blood Urea Nitrogen 21.0 mg/dl (6-23); Calcium 9.1 mg/dl (8.6-10.3); Carbon Dioxide 27.0 mmol/L (21-32); Chloride 99.0 mmol/L (98-107); Creatinine Clr Calc Pharmacy 79.6 ml/min; Glucose 132.0 mg/dl (70-99(Fasting)); Magnesium 1.9 mg/dl (1.7-2.4); Potassium 3.6 mmol/L (3.5-5.1); Sodium 138.0 mmol/L (136-145)
[2025-11-03] MEDS: AZITHROMYCIN 250 MG TAB PO SCH (08:42)
[2025-11-03 11:46] LABS: Base Excess VBG 3.5 mEq/L; HCO3 VBG 27 mmol/L; Oxygen Saturation VBG 100.0 %; PCO2 VBG 35 mmHg (38-50); PO2 VBG 113 mmHg; pH VBG 7.49 (7.36-7.41)
--- NOTE | 2025-11-03 14:10 | Hospitalist Progress Note ---
Date of Service November 03, 2025 Assessment & Plan (1) Acute anaphylaxis: Plan: CT contrast-induced (2) Acute hypoxic respiratory failure: Plan: Extubated, currently on oxymask (3) ARDS (adult respiratory distress syndrome): (4) Influenza A with pneumonia: (5) Secondary bacterial pneumonia: (6) Acute hyperactive delirium due to another medical condition: (7) Acute metabolic encephalopathy: (8) Severe sepsis with acute organ dysfunction: (9) Myocardial infarction due to demand ischemia: (10) Acute myofascial strain of lumbar region: (11) DMII (diabetes mellitus, type 2): (12) Lumbar compression fracture: (13) PTSD (post-traumatic stress disorder): Plan Ms. Phillip is a 60-year-old female with past medical history significant for diabetes, dyslipidemia, hypothyroidism, positional sleep apnea, nocturnal hypoxemia, ST elevated MA, hypertension, irritable bowel syndrome, osteoporosis, chronic bilateral back pain, H. pylori infection, depression, PTSD, insomnia, history of adrenal mass, presented initially with severe back pain and subsequently admitted to ICU after anaphylactic reaction to CT scan contrast presumptively. Patient found to have flu A with superimposed pna as well. PT/OT recommending rehab at this time #Acute hypoxic respiratory failure, multifactorial #Influenza A with superimposed bacterial infection #Anaphylactic Shock #DELIA -2/2 anaphylaxis. flu A weaning off high flow as able, from 9L to 5L today appears net negative fluid urban this admission continue augmentin and azithromycin repeat procal droplet precautions continue tamiflu continue to wean o2 as able #Hypertension -Holding metoprolol and losartan as patient is hypotensive #Metabolic Encephalopathy, resolved -agitated and not following commands at times -currently RASS -5 to get MR brain imaging -MR brain 10/29 without acute changes doing better, weaning opioids tolerating trazodone at bedtime #History of ST elevated MA -On 07/28/2023 -Status post drug-eluting stents to RCA. Third-degree heart block resolved pos tprocedure -Postop course complicated by pseudoaneurysm of the right femoral artery access site and underwent ultrasound-guided thrombin injection continue asa, statin continue bb #Acute on chronic Back pain #Partial collapse L4-L5 #Chronic collapse of prior vertebroplasty L2 #Age related osteoporosis related compression fracture PT/OT lidocaine patch daily scheduled tylenol consider op pain management referral upon D/C #DM Type 2 -Sliding scale #Hyperlipidemia -On statin and Zetia #History of hypothyroidism TSH 1.195, stable #Depression #PTSD -Restart home medication when able to DVT lovenox sq I spent a total of 55 minutes in direct patient care, including [id number] time with the patient and/or family, reviewing medical records, ordering and reviewing diagnostic tests, and coordinating care with other healthcare providers. This time includes: history taking, physical examination, medical decision making, counseling, ECG interpretation, imaging interpretation, lab interpretation, orders, and education, excluding time spent in the performance of separately billed services. Admission and Anticipated Discharge Date Admission Date: October 28, 2025 Subjective evalauted at bedside reports she had a rough night, but due to interruptions and her room feeling too warm she states the trazodone was much more helpful that prior meds for sleep, and would like to continue this she reports ongoing cough and sob, but reports its much better, her greatest concern is her weakness Physical Exam Constitutional: WD/WN, vitals as above Respiratory: diffuse coarse breath sounds, deep inhalation impaired 2/2 cough Cardiovascular: RRR, no murmur, no edema Gastrointestinal (Abdomen): normal bowel sounds, soft, nontender, no hepatosplenomegaly Musculoskeletal: no cyanosis or clubbing, extremities motor strength 5/5 Results & Data Results & Data Vital Signs (Past 12 Hours) Vital Signs Temp Pulse Pulse Resp BP Pulse Ox O2 Del Method 11/03/25 13:14 16 Nasal Cannula 11/03/25 11:32 36.7 C 66 24 137/76 96 Room Air 11/03/25 09:17 87 11/03/25 09:13 High Flow Nasal Cannula 11/03/25 07:40 36.5 C 74 33 H 180/84 H 93 High Flow Nasal Cannula 11/03/25 05:34 81 18 94 Oxymask 11/03/25 02:56 36.8 C 76 17 165/87 H 92 Oxymask O2 Flow Rate 11/03/25 13:14 5 11/03/25 11:32 11/03/25 09:17 11/03/25 09:13 9 11/03/25 07:40 9 11/03/25 05:34 8 11/03/25 02:56 13
[2025-11-03] MEDS: PROMETHAZINE 6.25 MG/50.25 ML BAG IV PRN (17:13)
[2025-11-04 07:16] LABS: Hematocrit (blood only) 34.0 % (37.0-47.0); Hemoglobin 11.6 g/dL (12.0-16.0); Mean Corpuscular Hemoglobin 28.6 pg (25.0-34.0); Mean Corpuscular Volume 83.7 fL (80.0-100.0); Platelet Count 257 K/uL (130-400); RDW Standard Deviation 43.8 fL (36.4-46.3); Red Blood Count 4.06 M/uL (4.20-5.40); White Blood Count 6.50 K/ul (4.8-10.8)
[2025-11-04 07:58] LABS: Anion Gap 10.0 (3-11); Blood Urea Nitrogen 17.0 mg/dl (6-23); Calcium 9.2 mg/dl (8.6-10.3); Carbon Dioxide 27.0 mmol/L (21-32); Chloride 101.0 mmol/L (98-107); Creatinine Clr Calc Pharmacy 94.4 ml/min; Glucose 118.0 mg/dl (70-99(Fasting)); Magnesium 1.8 mg/dl (1.7-2.4); Potassium 3.5 mmol/L (3.5-5.1); Sodium 138.0 mmol/L (136-145)
[2025-11-04] MEDS: LOSARTAN POTASSIUM 25 MG TAB PO SCH (08:58)
[2025-11-04] MEDS: FIRST - Mouthwash BLM 5 ML UDP PO ONE (10:07)
[2025-11-04] MEDS: FIRST - Mouthwash BLM 5 ML UDP PO SCH (12:02)
--- NOTE | 2025-11-04 12:17 | Hospitalist Progress Note ---
Date of Service November 04, 2025 Assessment & Plan (1) Acute anaphylaxis: Plan: CT contrast-induced (2) Acute hypoxic respiratory failure: Plan: Extubated, currently on oxymask (3) ARDS (adult respiratory distress syndrome): (4) Influenza A with pneumonia: (5) Secondary bacterial pneumonia: (6) Acute hyperactive delirium due to another medical condition: (7) Acute metabolic encephalopathy: (8) Severe sepsis with acute organ dysfunction: (9) Myocardial infarction due to demand ischemia: (10) Acute myofascial strain of lumbar region: (11) DMII (diabetes mellitus, type 2): (12) Lumbar compression fracture: (13) PTSD (post-traumatic stress disorder): Plan Ms. Phillip is a 60-year-old female with past medical history significant for diabetes, dyslipidemia, hypothyroidism, positional sleep apnea, nocturnal hypoxemia, ST elevated PR, hypertension, irritable bowel syndrome, osteoporosis, chronic bilateral back pain, H. pylori infection, depression, PTSD, insomnia, history of adrenal mass, presented initially with severe back pain and subsequently admitted to ICU after anaphylactic reaction to CT scan contrast presumptively. Patient found to have flu A with superimposed pna as well. PT/OT recommending rehab at this time; referral placed for inpatient rehab Patient continues to improve with reduced O2 requirements, down to 4L HFNC at this time, suspect time for resolution likely necessary given continued clinical improvement #Acute hypoxic respiratory failure, multifactorial #Influenza A with superimposed bacterial infection #Anaphylactic Shock #DELIA -2/2 anaphylaxis. flu A weaning off high flow as able, from 9L to 5L today appears net negative fluid urban this admission continue augmentin and azithromycin repeat procal droplet precautions continue tamiflu continue to wean o2 as able, suspect patient can transition to [facility] for continued o2 weaning #Hypertension -Holding metoprolol and losartan as patient is hypotensive #Metabolic Encephalopathy, resolved -agitated and not following commands at times -currently RASS -5 to get MR brain imaging -MR brain 10/29 without acute changes doing better, weaning opioids tolerating trazodone at bedtime #History of ST elevated PR -On 07/28/2023 -Status post drug-eluting stents to RCA. Third-degree heart block resolved postprocedure -Postop course complicated by pseudoaneurysm of the right femoral artery access site and underwent ultrasound-guided thrombin injection continue asa, statin continue bb #Acute on chronic Back pain #Partial collapse L4-L5 #Chronic collapse of prior vertebroplasty L2 #Age related osteoporosis related compression fracture PT/OT lidocaine patch daily scheduled tylenol consider op pain management referral upon D/C TLSO brace from orthotics ordered #DM Type 2 -Sliding scale #Hyperlipidemia -On statin and Zetia #History of hypothyroidism TSH 1.195, stable #Depression #PTSD -Restart home medication when able to DVT lovenox sq I spent a total of 57 minutes in direct patient care, including [id number] time with the patient and/or family, reviewing medical records, ordering and reviewing diagnostic tests, and coordinating care with other healthcare providers. This time includes: history taking, physical examination, medical decision making, counseling, ECG interpretation, imaging interpretation, lab interpretation, orders, and education, excluding time spent in the performance of separately billed services. Admission and Anticipated Discharge Date Admission Date: October 28, 2025 Subjective Evaluated at bedside reports some nausea with antibiotics, but resolves with zofran and phenergan Agreed to trial TLSO brace states last night was not terrible, she was able to get more rest than previous nights, but not nearly the rest she would like to get denies any further hallucinations, delirium, or other acute concerns Discussed plan for [facility] and continued o2 weaning still irritated when swallowing Physical Exam Constitutional: WD/WN, vitals as above Respiratory: coarse but more airway movement than prior Cardiovascular: RRR, no murmur, no edema Gastrointestinal (Abdomen): normal bowel sounds, soft, nontender, no hepatosplenomegaly Results & Data Results & Data Vital Signs (Past 12 Hours) Vital Signs Temp Pulse Pulse Resp BP Pulse Ox O2 Del Method 11/04/25 11:18 36.9 C 68 18 170/82 H 93 High Flow Nasal Cannula 11/04/25 08:15 Nasal Cannula 11/04/25 07:09 37.3 C 78 26 H 173/80 H 95 High Flow Nasal Cannula 11/04/25 07:06 75 11/04/25 04:30 36.8 C 84 19 168/82 H 91 High Flow Nasal Cannula O2 Flow Rate 11/04/25 11:18 4 11/04/25 08:15 4 11/04/25 07:09 5 11/04/25 07:06 11/04/25 04:30 3 Laboratory Results Short CBC 11/04/25 Range/Units 06:50 WBC 6.50 (4.8-10.8) K/ul Hgb 11.6 L (12.0-16.0) g/dL Hct 34.0 L (37.0-47.0) % Plt Count 257 (130-400) K/uL [facility] 11/04/25 06:50 Sodium 138 Potassium 3.5 Chloride 101 Carbon Dioxide 27 BUN 17 Creatinine 0.48 L Glucose 118 H Calcium 9.2 Medications Administered Home Medications Medication Instructions Recorded Confirmed Last Taken dicyclomine 20 mg tablet 20 mg PO DIRECTED PRN IBS 10/03/18 10/28/25 10/02/18 suvorexant 20 mg tablet (Belsomra) 20 mg PO HS Sleep 09/05/20 10/28/25 05/05/25 buspirone 15 mg tablet 15 mg PO QID 07/28/23 10/28/25 10/27/25 denosumab 60 mg/mL subcutaneous 60 mg subcut DIRECTED 07/28/23 10/28/25 2 Weeks Ago syringe (Prolia) ~04/05/25 omeprazole 40 mg capsule,delayed 40 mg PO DAILYBB 07/28/23 10/28/25 10/27/25 release linaclotide 290 mcg capsule 290 mcg PO QAM 07/29/23 10/28/25 10/27/25 (Linzess) quetiapine 300 mg tablet 300 mg PO HS 07/30/23 10/28/25 10/27/25 aspirin 81 mg tablet,delayed 81 mg PO QAM #30 tabs 08/07/23 10/28/25 10/27/25 release atorvastatin 80 mg tablet 80 mg PO QAM 04/19/25 10/28/25 10/27/25 hyoscyamine sulfate 0.125 mg 0.125 mg PO QID PRN ABD PAIN IF 04/19/25 10/28/25 Unknown sublingual tablet CAN'T TOLERATE BENTYL lorazepam 1 mg tablet 1 mg PO HS 04/19/25 10/28/25 10/27/25 losartan 25 mg tablet 12.5 mg PO QAM 04/19/25 10/28/25 10/27/25 metoprolol succinate 25 mg 12.5 mg PO QAM 04/19/25 10/28/25 10/27/25 tablet,extended release 24 hr ezetimibe 10 mg tablet 10 mg PO QAM 05/06/25 10/28/25 10/27/25 phenazopyridine 200 mg tablet 200 mg PO Q8H PRN Pain 6 doses #6 05/06/25 10/28/25 Unknown (Pyridium) tabs cyclobenzaprine 5 mg tablet 5 - 10 mg (1 - 2 x 5 mg) PO Q8H 10/25/25 10/28/25 Unknown PRN muscle spasm #20 tabs oxycodone 5 mg tablet 5 mg PO Q6H PRN pain #10 tabs 10/25/25 10/28/25 Unknown prednisone 20 mg tablet 20 mg PO DIRECTED 9 days #18 10/25/25 10/28/25 Unknown tabs hydrocortisone 2.5 % topical cream 1 applic topical BID PRN Skin 10/28/25 10/28/25 Unknown Irritation suvorexant 20 mg tablet 20 mg PO HS 10/28/25 10/28/25 10/27/25 Active Medications Generic Name Dose Route Start Last Admin Trade Name Freq PRN Reason Stop Dose Admin Acetaminophen 1,000 mg 11/02/25 14:00 11/04/25 08:39 Acetaminophen 500 Mg Tab PO 12/02/25 13:59 1,000 mg TID STEPHAN Administration Hydrocodone Bitart/Acetaminophen 1 tab 11/02/25 23:50 11/03/25 00:17 Hydrocodone/Acetamophen 5/325mg Tab PO 11/16/25 23:49 1 tab QID PRN Administration Pain Albuterol 3 ml 11/01/25 13:00 11/04/25 07:44 Albut/Ipratrop 3mg/0.5mg Neb 3 Ml Vial NEB 12/01/25 12:59 Not Given Q6R STEPHAN Protocol Amoxicillin/Clavulanate Potassium 1 tab 11/02/25 17:00 11/04/25 08:35 Amoxicillin/Clavulanate 875 Mg Tab PO 11/05/25 22:00 1 tab BIDM STEPHAN Administration Protocol Aspirin 81 mg 10/28/25 09:45 11/04/25 08:41 Aspirin 81 Mg Chew GT 11/27/25 09:44 81 mg QAM STEPHAN Administration Atorvastatin Calcium 80 mg 10/28/25 09:00 11/04/25 08:35 Atorvastatin 40 Mg Tab PO 11/27/25 08:59 80 mg QAM STEPHAN Administration Benzonatate 100 mg 11/01/25 14:00 11/04/25 08:36 Benzonatate 100 Mg Capsule PO 12/01/25 13:59 100 mg TID STEPHAN Administration Buspirone HCl 5 mg 11/01/25 09:00 11/04/25 08:35 Buspirone 5 Mg Tab PO 12/01/25 08:59 5 mg TID STEPHAN Administration Ezetimibe 10 mg 10/28/25 09:00 11/04/25 08:34 Ezetimibe 10 Mg Tab PO 11/27/25 08:59 10 mg QAM STEPHAN Administration Enoxaparin Sodium 40 mg 10/29/25 09:00 11/04/25 08:36 Enoxaparin Inj 40 Mg/0.4 Ml Syr SQ 11/28/25 08:59 40 mg QAM STEPHAN Administration Guaifenesin/Dextromethorphan 5 ml 11/01/25 21:00 11/04/25 08:35 Guaifenesin/Dextrom Syrup 100mg/10mg 5ml Udc PO 12/01/25 20:59 5 ml BID STEPHAN Administration Promethazine HCl 6.25 mg in 50.25 mls @ 201 mls/hr 11/03/25 16:47 11/04/25 01:54 Phenergan IV 12/03/25 16:46 Infused Q6H PRN Infusion Nausea And Vomiting Insulin Aspart 0 units 10/31/25 16:30 11/04/25 12:01 Insulin Aspart Per Unit Charge SC 11/27/25 05:59 2 units ACHS STEPHAN Administration Lidocaine 1 patch 10/30/25 09:30 11/04/25 08:35 Lidocaine 5% 1 Patch TD 11/29/25 09:29 1 patch QAM STEPHAN Administration Linaclotide 290 mcg 11/01/25 09:00 11/04/25 08:34 Linaclotide 145 Mcg Capsule PO 12/01/25 08:59 290 mcg DAILY STEPHAN Administration Losartan Potassium 25 mg 11/04/25 09:00 11/04/25 08:58 Losartan Potassium 25 Mg Tab PO 12/04/25 08:59 25 mg QAM STEPHAN Administration Metoprolol Succinate 12.5 mg 11/01/25 09:00 11/04/25 08:35 Metoprolol Succ 25mg Ext Rel Tab PO 12/01/25 08:59 12.5 mg QAM STEPHAN Administration Miscellaneous 1 each 10/30/25 21:00 11/03/25 20:40 Remove Lidoderm Patch N/A 11/29/25 20:59 1 each DAILY@2100 STEPHAN Administration Multi-Ingredient Mouthwash/Gargle 5 ml 11/04/25 11:30 11/04/25 12:02 First - Mouthwash Blm 5 Ml Udp PO 12/04/25 11:29 Not Given ACHS STEPHAN Ondansetron HCl 4 mg 10/31/25 10:30 11/03/25 20:39 Ondansetron Inj 2 Mg/Ml 2 Ml Vial IV 11/30/25 10:29 4 mg Q6H PRN Administration Nausea And Vomiting Oseltamivir Phosphate 75 mg 11/01/25 10:00 11/04/25 08:34 Oseltamivir Phosphate 75 Mg Cap PO 11/09/25 23:59 75 mg BID STEPHAN Administration Pantoprazole Sodium 40 mg 11/01/25 09:00 11/04/25 08:35 Pantoprazole 40 Mg Tab PO 12/01/25 08:59 40 mg QAM STEPHAN Administration Polyethylene Glycol 17 gm 11/02/25 09:00 11/04/25 08:42 Polyethylene (Miralax) 17 Gm Pack PO 12/02/25 08:59 17 gm DAILY STEPHAN Administration Senna/Docusate Sodium 1 tab 11/02/25 09:00 11/04/25 08:29 Docusate Sodium/Senna 50/8.6mg Tab PO 12/02/25 08:59 Not Given BID STEPHAN Trazodone HCl 50 mg 11/02/25 21:00 11/03/25 20:38 Trazodone Hcl 50 Mg Tab PO 12/02/25 20:59 50 mg HS STEPHAN Administration
--- NOTE | 2025-11-05 13:22 | Pharmacy Report ---
Pharmacy Glycemic Sign Off Nt - Date of Service November 05, 2025 - Assessment & Plan ASSESSMENT: * Pharmacy was consulted by Dr Kang on 10/28 for glycemic control and to write orders per [facility] inpatient glycemic control protocol. * Major changes made by pharmacy to antidiabetic regimen include: * added novolog/basal when patient was on steroids initially on admission * loosened parameters once steroids d/c. Patient only receiving SSI currently. * Patient has been receiving/requiring <10 units/day and blood sugars have been stable. PLAN FOR INPATIENT GLYCEMIC CONTROL: No changes needed to current regimen. * No basal insulin warranted * Continue NovoLog per scale ACHS/Q6hrs while NPO * Goal range = 140-180 mg/dl * CF = 35 mg/dl/unit * CR = 1 unit for ever 20 g CHO consumed * Pharmacy is signing off of glycemic consult and will no longer be making adjustments to inpatient regimen. Please feel free to re-consult if needed. Thank you.
--- NOTE | 2025-11-05 14:48 | Hospitalist Progress Note ---
Date of Service November 05, 2025 Assessment & Plan (1) Acute anaphylaxis: Plan: CT contrast-induced, resolved (2) Acute hypoxic respiratory failure: Plan: Extubated, currently on 4 L, steadily improving (3) ARDS (adult respiratory distress syndrome): (4) Influenza A with pneumonia: (5) Secondary bacterial pneumonia: (6) Acute hyperactive delirium due to another medical condition: (7) Acute metabolic encephalopathy: (8) Severe sepsis with acute organ dysfunction: (9) Myocardial infarction due to demand ischemia: (10) Acute myofascial strain of lumbar region: (11) DMII (diabetes mellitus, type 2): (12) Lumbar compression fracture: (13) PTSD (post-traumatic stress disorder): Plan Patient continues to improve, down to 4 L oxygen Completed greater than 5 days of Tamiflu, discontinue Completing a 7-day course of antibiotics, discontinue after today Continue therapies Continue to titrate oxygen as able Physical therapy reevaluating to help with qualification/authorization to come [facility] for musculoskeletal pain Kimberly Edwards Updated patient's via phone Admission and Anticipated Discharge Date Admission Date: October 28, 2025 Subjective Patient is starting to do a little bit more for herself. Still a fair amount of stiffness and back pain. Decreasing oxygen requirement Physical Exam Physical Exam: Constitutional: Alert, significantly improved from last week, nontoxic HEENT: Mucous membranes moist. Lungs: Decreased breath sounds, few crackles throughout CV: S1-S2, regular Abdomen: Soft, nontender, nondistended Extremities: No significant edema Neuro: No focal deficits, generally weak Psych: Cooperative, normal mood Results & Data Results & Data Vital Signs (Past 12 Hours) Vital Signs Temp Pulse Pulse Pulse Resp BP BP 11/05/25 11:04 36.9 C 79 24 158/85 H 11/05/25 09:00 11/05/25 08:13 68 11/05/25 07:26 36.9 C 80 31 H 182/90 H 11/05/25 07:14 78 16 11/05/25 04:15 36.7 C 75 19 179/80 H Pulse Ox O2 Del Method O2 Flow Rate 11/05/25 11:04 97 High Flow Nasal Cannula 4 11/05/25 09:00 Nasal Cannula 4 11/05/25 08:13 11/05/25 07:26 91 High Flow Nasal Cannula 11/05/25 07:14 92 Nasal Cannula 4 11/05/25 04:15 93 High Flow Nasal Cannula 4 Diagnostic Findings Reviewed imaging, laboratory and diagnostic studies. Pertinent findings as below. Glucoses reviewed 4 L nasal cannula, oxygen requirement significantly improved
[2025-11-05] MEDS ORDERED: BENZONATATE 100 MG CAPSULE PO PRN (14:58)
[2025-11-05] MEDS: CeleBREX 200 MG CAP PO SCH (15:41)
[2025-11-06 06:27] LABS: Anion Gap 8.0 (3-11); Blood Urea Nitrogen 17.0 mg/dl (6-23); Calcium 9.1 mg/dl (8.6-10.3); Carbon Dioxide 28.0 mmol/L (21-32); Chloride 102.0 mmol/L (98-107); Creatinine Clr Calc Pharmacy 83.6 ml/min; Glucose 138.0 mg/dl (70-99(Fasting)); Potassium 3.2 mmol/L (3.5-5.1); Sodium 138.0 mmol/L (136-145)
[2025-11-06] MEDS: POTASSIUM CHLORIDE CRTAB 20 MEQ TABCR PO SCH (08:18)
[2025-11-06] MEDS ORDERED: ALBUT/IPRATROP 3MG/0.5MG NEB 3 ML VIAL NEB PRN (12:31)
--- NOTE | 2025-11-06 14:02 | Hospitalist Progress Note ---
Date of Service November 06, 2025 Assessment & Plan (1) Acute anaphylaxis: Plan: CT contrast-induced, resolved (2) Acute hypoxic respiratory failure: Plan: Extubated, currently on 4 L, steadily improving (3) ARDS (adult respiratory distress syndrome): (4) Influenza A with pneumonia: (5) Secondary bacterial pneumonia: (6) Acute hyperactive delirium due to another medical condition: (7) Acute metabolic encephalopathy: (8) Severe sepsis with acute organ dysfunction: (9) Myocardial infarction due to demand ischemia: (10) Acute myofascial strain of lumbar region: (11) DMII (diabetes mellitus, type 2): (12) Lumbar compression fracture: (13) PTSD (post-traumatic stress disorder): Plan Patient continuing to show steady improvement Encouraged her to participate in therapies and move even outside of therapy sessions Daily encouragement to do frequent incentive spirometry Continue to titrate oxygen as able Completed courses of Tamiflu and Augmentin Continue current pain regimen Nebulizer treatments as needed Communication with case management, awaiting insurance review and authorization for potential rehabilitation at [facility] Admission and Anticipated Discharge Date Admission Date: October 28, 2025 Subjective Patient doing a bit better. Pain is a little bit better. Slept better with the reintroduction of her Seroquel. Physical Exam Physical Exam: Constitutional: Alert, nontoxic, no acute distress HEENT: Mucous membranes moist. Lungs: Decreased breath sounds, fine crackles throughout CV: S1-S2, regular Abdomen: Soft, nontender, nondistended Extremities: No significant edema Neuro: No focal deficits, generally weak Psych: Cooperative, chronic anxiousness Results & Data Results & Data Vital Signs (Past 12 Hours) Vital Signs Temp Pulse Resp BP Pulse Ox O2 Del Method O2 Flow Rate 11/06/25 08:00 Nasal Cannula 2 11/06/25 07:40 37.0 C 77 16 152/83 H 90 Nasal Cannula 2 Diagnostic Findings Reviewed imaging, laboratory and diagnostic studies. Pertinent findings as below. Potassium 3.2 Creatinine 0.55 Glucoses reviewed
[2025-11-06] MEDS: CYCLOBENZAPRINE HCL 5 MG TAB PO PRN (21:05)
[2025-11-07 06:29] LABS: Anion Gap 7.0 (3-11); Blood Urea Nitrogen 19.0 mg/dl (6-23); Calcium 9.1 mg/dl (8.6-10.3); Carbon Dioxide 26.0 mmol/L (21-32); Chloride 105.0 mmol/L (98-107); Creatinine Clr Calc Pharmacy 90.2 ml/min; Glucose 127.0 mg/dl (70-99(Fasting)); Potassium 4.0 mmol/L (3.5-5.1); Sodium 138.0 mmol/L (136-145)
--- NOTE | 2025-11-07 15:56 | Hospitalist Progress Note ---
Date of Service November 07, 2025 Assessment & Plan (1) Acute anaphylaxis: Plan: CT contrast-induced, resolved (2) Acute hypoxic respiratory failure: Plan: Extubated, currently on 4 L, steadily improving (3) ARDS (adult respiratory distress syndrome): (4) Influenza A with pneumonia: (5) Secondary bacterial pneumonia: (6) Acute hyperactive delirium due to another medical condition: (7) Acute metabolic encephalopathy: (8) Severe sepsis with acute organ dysfunction: (9) Myocardial infarction due to demand ischemia: (10) Acute myofascial strain of lumbar region: (11) DMII (diabetes mellitus, type 2): (12) Lumbar compression fracture: (13) PTSD (post-traumatic stress disorder): Plan Patient 60-year-old female who initially presented to the emergency room with acute lumbar pain most likely due to musculoskeletal strain sprain. Patient had a severe and acute anaphylactic reaction to CT IV contrast while being worked up in the emergency room. This deteriorated into respiratory failure. She was intubated and mechanically ventilated. She was treated for acute anaphylaxis in the ICU. Subsequently she was noted to have influenza pneumonia and suspected bacterial pneumonia. She was treated with Tamiflu and antibiotics. She completed a both courses while here in the hospital. She was extubated to high flow/oxy mask. Over the subsequent days she steadily improved and her oxygen requirements have slowly decreased. Due to her overall medical condition she is severely deconditioned. Working on placement. Patient also has significant mental health history. Many of these medications were held at the time of admission. Slowly starting to reintroduce them as she steadily improved. Patient had some significant metabolic encephalopathy that has subsequently cleared as well. Today patient is eager and anxious to get to rehab. Communication with case management, [facility] is continuing to work with the patient's insurance to obtain authorization. Reportedly insurance company required and asked for additional clinical data. Patient's blood pressure has been elevated over the past few days. Will increase losartan to 50 mg daily Patient's anxiety seems to be increasing slightly, increase BuSpar to 10 mg 3 times daily (prior to admission patient on 15 mg 4 times daily) Continue encourage incentive spirometer and flutter valve. Patient's mobility still significantly limited due to pain that initially started with a lumbosacral strain sprain while moving luggage. Exacerbated now due to the fact that she has been in the hospital for 10 days with limited physical activity. Patient continues to need daily medical monitoring for titration of her oxygen. As her activity increases she may need some increase in her oxygen flow when she is active. This will need ongoing titration. Also benefit from intense physical therapy and rehabilitation that can be provided at inpatient rehab unit. Believe she would tolerate the 3 hours of therapy that is required. She is very motivated. Admission and Anticipated Discharge Date Admission Date: October 28, 2025 Subjective Patient continues to do a little bit better each day. Shares that she is being diligent with incentive spirometer. Trying to be a bit more mobile. Eager to get to rehab. Physical Exam Physical Exam: Constitutional: Alert, nontoxic, no distress HEENT: Mucous membranes moist. Lungs: Decreased breath sounds, improving airflow, continued crackles throughout, no wheezes CV: S1-S2, regular Abdomen: Soft, nontender, nondistended Extremities: No significant edema Neuro: No focal deficits General Weakness Psych: Cooperative, normal mood Results & Data Results & Data Vital Signs (Past 12 Hours) Vital Signs Temp Pulse Resp BP Pulse Ox O2 Del Method O2 Flow Rate 11/07/25 15:22 36.6 C 77 16 129/79 93 Nasal Cannula 11/07/25 11:15 93 2 11/07/25 07:45 Nasal Cannula 2 11/07/25 07:27 36.6 C 83 16 159/85 H 90 Nasal Cannula 2 Diagnostic Findings Reviewed imaging, laboratory and diagnostic studies. Pertinent findings as below. Potassium 4.0 Creatinine 0.51 Glucose was reviewed
[2025-11-07] MEDS: busPIRone 5 MG TAB PO SCH (20:40)
[2025-11-08 08:07] VITALS: BP 134/82; PULSE 78; RESP 19; TEMP 98.1; O2SAT 94
[2025-11-08] MEDS: LOSARTAN POTASSIUM 50 MG TAB PO SCH (10:40)
--- NOTE | 2025-11-08 12:03 | Discharge Summary ---
Date of Service November 08, 2025 Admission HPI Per Admitting Provider 60-year-old female with past medical history significant for diabetes, dyslipidemia, hypothyroidism, positional sleep apnea, nocturnal hypoxemia, ST elevated CA, hypertension, irritable bowel syndrome, osteoporosis, chronic bilateral back pain, H. pylori infection, depression, PTSD, insomnia, history of adrenal mass, presents with severe back pain and patient had reaction to CT scan contrast. Patient is from [facility]. Patient was visiting [facility] and came back recently. While coming back she lifted her suitcase and felt a pop in the lumbar spine and had progressive pain. She came to the ER on 10/25/2025. X-rays lumbar spine was okay but showed old fracture. Patient was given Toradol and discharged on prednisone taper,Flexeril and oxycodone. says the pain medicine is not helping. The pain was getting progressively worse. She is having some difficulty ambulation because of pain. This reason came to the ER today. As per there is no complaint of chest pain or shortness of breath. No cough. No fevers. No nausea. Patient after coming back from CAT scan was not breathing. She turned blue. Oxygen saturation 40%. She was hypotensive. Tachycardic. Patient was emergently intubated. She was given epinephrine. She was also given Decadron, Benadryl and Pepcid. Still somewhat hypotensive patient was started on epinephrine drip. Patient is on fentanyl drip for sedation.Face is somewhat swollen. Past medical history. As mentioned above Past surgical history. Left breast biopsy. . Colonoscopy and EGD. EGD with endoscopic ultrasound. Duodenum biopsy. Excision of sebaceous cyst left breast. Injection of the lumbosacral spine. Laparoscopic cholecystectomy. Appendectomy. Repair of epigastric hernia. Small bowel endoscopy with biopsy. Social history. . Smokes 0.3 packs a day for 36 years. No alcohol use. No drug use. Family history. Mother had hypertension. Sepsis. Thyroid disorder. Father had stomach cancer. Paternal grandfather had stomach cancer. Admission Exam Per Admitting Provider General- Not in distress Head- atraumatic. Swollen lips Eyes- Pupils sluggish reaction to light Neck-, no JVD. Lungs- clear to auscultation no wheezing or crackles Heart- regular rhythm; no murmur, no gallop. Abdomen- sluggish bowel sounds, soft, no distension. Extremities- no pretibial edema, no erythema seen Neuro-intubated and sedated Skin- no rash seen Principal Diagnosis (1) Acute anaphylaxis: (2) Acute hypoxic respiratory failure: (3) ARDS (adult respiratory distress syndrome): (4) Influenza A with pneumonia: (5) Secondary bacterial pneumonia: Discharge Exam Constitutional + well hydrated; no acute distress Eyes PERRL, conjunctivae normal, anicteric sclerae ENMT external ear and nose normal, oropharynx normal Respiratory On nasal cannula at 1L/min, not in resp distress, +coarse breath sounds, few crackles Cardiovascular Rate/Rhythm: regular rate and regular rhythm Gastrointestinal (Abdomen) normal bowel sounds, soft, nontender, no hepatosplenomegaly Musculoskeletal No pedal edema Neurologic PERRL, EOMI, accommodation nl, no face palsy, no dysarthria Psychiatric A+Ox3, euthymic affect Discharge Data Allergies Allergy/AdvReac Type Severity Reaction Status Date / Time egg Allergy Severe HIVES, Verified 10/28/25 00:55 FACIAL SWELLING Iodinated Contrast Media Allergy Severe Anaphylaxis Verified 10/28/25 03:34 metronidazole AdvReac Severe Confusion Verified 10/28/25 00:55 clarithromycin AdvReac Intermediate Gastrointestinal Verified 10/28/25 00:55 Upset codeine AdvReac Intermediate ABDOMINAL Verified 10/28/25 00:55 PAIN-IBS morphine AdvReac Intermediate ABDOMINAL Verified 10/28/25 00:55 PAIN-IBS oxycodone AdvReac Intermediate Nausea Verified 11/02/25 23:51 Opioids - Morphine Analogues AdvReac Mild Nausea Verified 10/28/25 00:55 Consultations 10/28/25 01:50 ED Decision to Admit Stat 10/28/25 04:08 Consult Station Cook Routine Ordered Studies 10/28/25 00:10 CT abd pelvis IV con only Stat CT lumbar spine w con Stat 10/29/25 09:11 MRI Brain [MR brain wo con] Stat Hospital Course (1) Acute anaphylaxis: CT contrast-induced, resolved (2) Acute hypoxic respiratory failure: Extubated, currently on 4 L, steadily improving (3) ARDS (adult respiratory distress syndrome): (4) Influenza A with pneumonia: (5) Secondary bacterial pneumonia: (6) Acute hyperactive delirium due to another medical condition: (7) Acute metabolic encephalopathy: (8) Severe sepsis with acute organ dysfunction: (9) Myocardial infarction due to demand ischemia: (10) Acute myofascial strain of lumbar region: (11) DMII (diabetes mellitus, type 2): (12) Lumbar compression fracture: (13) PTSD (post-traumatic stress disorder): Plan 60-year-old woman who initially presented to the emergency room with acute lumbar pain most likely due to musculoskeletal strain sprain. Patient had a severe and acute anaphylactic reaction to CT IV contrast while being worked up in the emergency room. This deteriorated into respiratory failure. She was intubated and mechanically ventilated. She was treated for acute anaphylaxis in the ICU. Subsequently she was noted to have influenza pneumonia and suspected bacterial pneumonia. She was treated with Tamiflu and antibiotics. She completed a both courses while here in the hospital. She was extubated to high flow/oxy mask. Over the subsequent days she steadily improved and her oxygen requirements have slowly decreased. Due to her overall medical condition she is severely deconditioned. Patient also has significant mental health history. Many of these medications were held at the time of admission. Slowly starting to reintroduce them as she steadily improved. Patient had some significant metabolic encephalopathy that has subsequently cleared as well. She has not required her HS lorazepam for sometime inpatient.This was not continued on discharge to rehab. Physician at rehab can reassess as needed. Currently on buspar 10mg TID (was on 15mg QID [employer]PER[employer]). 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 Anaphylactic reaction Discharge Diagnosis: (1) Acute anaphylaxis: (2) Acute hypoxic respiratory failure: (3) ARDS (adult respiratory distress syndrome): (4) Influenza A with pneumonia: (5) Secondary bacterial pneumonia: (6) Acute hyperactive delirium due to another medical condition: (7) Acute metabolic encephalopathy: (8) Severe sepsis with acute organ dysfunction: (9) Myocardial infarction due to demand ischemia: (10) Acute myofascial strain of lumbar region: (11) DMII (diabetes mellitus, type 2): (12) Lumbar compression fracture: (13) PTSD (post-traumatic stress disorder): 14) Malnutrition due to medical condition Condition on Discharge: Good Activity: As commented below Activity Comment: Increase your activity as tolerated Non-emergency contact: Primary Care Provider Call non-emergency contact if: your symptoms worsen Follow-up/Referrals: Paco Luis, [Primary Care Provider] - Diet: Carb Consistent or DM2 Addtl Attending Provider Instructions: Mrs Phillip You were hospitalized and managed for the above listed diagnoses. Continue to titrate oxygen to off as you continue to improve Continue with therapies Your losartan was increased to 50mg daily for now Please refer to the medication list for the medication changes. Ativan was held for now as you have not needed it for sometime Follow-up with Physician at rehab and your outpatient PCP It was a pleasure taking care of you Pending Studies at Discharge: No Stand-Alone Forms: My [facility] Skilled Items Patient informed of condition?: Yes DNR: No Discharge Level of Care: Acute rehab Communicable Disease: No Discharge Prognosis: Stable Lines: None Urinary Catheter: No Medications and DC Order Prescriptions: New celecoxib [Celebrex] 200 mg Capsule 200 mg PO QAM Qty: 10 0RF buspirone 5 mg Tablet 10 mg PO TID Qty: 90 0RF acetaminophen [Tylenol Extra Strength] 500 mg Tablet 1,000 mg PO TID Qty: 90 0RF lidocaine 5 % Adhesive Patch,Medicated 1 patch transdermal QAM Qty: 10 0RF cyclobenzaprine 5 mg Tablet 5 mg PO TID PRN (Reason: muscle spasm) Qty: 60 0RF sennosides-docusate sodium [Senokot-S] 8.6-50 mg Tablet 1 tab PO BID Qty: 20 0RF Continued omeprazole 40 mg capsule,delayed release(DR/EC) 40 mg PO DAILYBB Prolia 60 mg/mL Syringe 60 mg subcut DIRECTED Rx Instructions: 60 mg subcutaneously every 6 months Linzess 290 mcg capsule 290 mcg PO QAM quetiapine 300 mg tablet 300 mg PO HS aspirin 81 mg Tablet,Delayed Release (Dr/Ec) 81 mg PO QAM Qty: 30 0RF metoprolol succinate 25 mg tablet extended release 24 hr 12.5 mg PO QAM atorvastatin 80 mg tablet 80 mg PO QAM ezetimibe 10 mg tablet 10 mg PO QAM oxycodone 5 mg tablet 5 mg PO Q6H PRN (Reason: pain) Qty: 10 0RF Rx Instructions: For initial treatment hydrocortisone 2.5 % Cream 1 applic TOPICAL BID PRN (Reason: Skin Irritation) Changed losartan 25 mg tablet 50 mg PO QAM Qty: 0 0RF Discontinued dicyclomine 20 mg tablet 20 mg PO DIRECTED PRN (Reason: IBS) Belsomra 20 mg tablet 20 mg PO HS Rx Instructions: NOT ON [facility] MED LIST, ON EXT MED HX. buspirone 15 mg tablet 15 mg PO QID Rx Instructions: PER [facility]---QID, PER EXT MED HX---6 X DAILY. hyoscyamine sulfate 0.125 mg tablet, sublingual 0.125 mg PO QID PRN (Reason: ABD PAIN IF CAN'T TOLERATE BENTYL) lorazepam 1 mg tablet 1 mg PO HS phenazopyridine [Pyridium] 200 mg tablet 200 mg PO Q8H PRN (Reason: Pain) Qty: 6 0RF cyclobenzaprine 5 mg tablet 5 - 10 mg PO Q8H PRN (Reason: muscle spasm) Qty: 20 0RF Rx Instructions: 1-2 tabs every 8 hours for muscle spasm. No more than 6 tabs in a 24hr period. prednisone 20 mg tablet 20 mg PO DIRECTED 9 Days Qty: 18 0RF Rx Instructions: 3 tablets (60mg) x 3 days, then 2 tablets (40mg) x 3 days, then 1 tablet (20mg) x 3 days suvorexant 20 mg Tablet 20 mg PO HS Discharge Orders: Discharge Order (Routine); Ordered 11/08/25 Ordered By: Marylin Gutierrez Admission Data Admit Date/Time: 10/28/25 02:58 Attending Provider: Marylin Gutierrez I. Admit Provider: Surjit Isaacs Primary Care Provider: Paco Luis Other Providers: [facility]; Surjit Isaacs; Boogie Kang Randal L
== END 2025-11-08 13:37 | DRG 915 ==
LOC: ED 23:51 → 1E 10-28 02:58 → SUATTDRO 10-28 02:58 → 1E 10-28 04:20 → 2S 11-02 10:44 → 3E 11-06 00:54